=== PATIENT | female | born 1955 | race Caucasian/White ===

== ENCOUNTER 2020-03-30 08:33 | Emergency (ER) | payer MEDICARE, MEDICAID, SELFPAY ==
[2020-03-30] VITALS (7 sets, daily range): BP systolic 115–155; BP diastolic 47–78; PULSE 69–115; RESP 17–22; TEMP 36.6–37.4; O2SAT 97–98; BMI 32.5
[2020-03-30 09:06] LABS: Glucose, Whole Blood 74 mg/dL (60-115)
[2020-03-30 09:38] LABS: MANUAL DIFF FLAG NO
[2020-03-30 09:47] LABS: Basophils Absolute Auto 0.1 X10*3/uL (0.0-0.2); Basophils Percent Auto 1.3 % (0-2); Eosinophils Absolute Auto 0.1 X10*3/uL (0.0-0.4); Eosinophils Percent Auto 1.5 % (0-4); Hematocrit 39.5 % (37-47); Hemoglobin 12.7 g/dl (12.0-16.0); Imm Gran Abs Auto 0.07 X10*3/uL (0.00-0.03); Imm Gran Pct Auto 0.9 % (0.0-0.4); Lymphocytes Absolute Auto 1.5 X10*3/uL (1.2-4.9); Lymphocytes Percent Auto 19.1 % (20-40); Mean Corpuscular HGB Conc 32.2 g/dl (31.0-35.0); Mean Corpuscular Volume 93.2 fL (80-98); Mean Platelet Volume 10.9 fL (9.4-12.3); Monocytes Absolute Auto 0.5 X10*3/uL (0.1-1.2); Monocytes Percent Auto 6.1 % (2-11); Neutrophils Absolute Auto 5.6 X10*3/uL (2.0-8.3); Neutrophils Percent Auto 71.1 % (45-73); Platelet Count 178 X10*3/uL (160-400); Red Blood Count 4.24 X10*6/uL (4.20-5.50); Red Cell Distribution Width 12.7 % (11.0-16.0); White Blood Count 7.8 X10*3/uL (4.8-10.8)
[2020-03-30 10:22] LABS: Glucose Urine UA NEG (NEG); Leukocyte Esterase Urine NEG (NEG); Nitrite Urine NEG (NEG); Specific Gravity - Urine <= 1.005 (1.005-1.025); Urine Blood TRACE (NEG); Urine Ketones NEG (NEG); Urine Protein NEG (NEG-TRACE)
[2020-03-30 10:27] LABS: Anion Gap 14 (12-20); Blood Urea Nitrogen 13 mg/dL (9-16); Calcium 8.2 mg/dL (8.4-10.2); Carbon Dioxide 20 mmol/L (22-29); Chloride 110 mmol/L (96-108); Creatinine Clr Calc Pharmacy 46.9; Estimated Glomerular Filt Rate 41; Glucose Random 71 mg/dL (60-115); Potassium 3.9 mmol/l (3.3-5.1); Sodium 140 mmol/L (135-145)
[2020-03-30 10:29] LABS: Appearance Urine CLEAR; Color Urine YELLOW
[2020-03-30 10:33] LABS: Troponin-I High Sensitivity < 3.5 ng/L (<3.5-17.0)
--- NOTE | 2020-03-30 10:36 | CT_ITS ---
EXAMINATION: CT BRAIN AND CT CERVICAL SPINE WITHOUT CONTRAST. CLINICAL INFORMATION: Fall, LOC. COMPARISON: None TECHNIQUE: 5 mm thin axial and 2 mm thin sagittal and coronal images of brain were obtained without contrast. Subsequently axial 3 mm thin and very reformatted 2 mm thin sagittal and coronal images of cervical spine were obtained without contrast. DLP [id number] FINDINGS: BRAIN: There is no acute intra-axial, extra-axial bleed, masses or midline shift. There is no acute infarction in evolution. There is no edema or mass effect. The lateral ventricles are symmetrical in size and configuration without enlargement. The harris to white matter differentiation it is maintained. Bone windows reveal no calvarial abnormality. Bilateral paranasal sinuses and mastoid air cells are well aerated. There is left frontal scalp hematoma without calvarial fracture. CERVICAL SPINE: There is mild reversal cervical lordosis. The vertebral heights and alignment is normal. There is loss of C3-C4, C4-C5, C5-C6 and C6-C7 disc heights with the genu disc changes and ventral and posterior spondylosis. No lytic or sclerotic process seen. The neural foramina are widely patent. The craniovertebral junction and the C1-C2 alignment is normal. There is no visible acute fracture, dislocation or subluxation. The prevertebral and paravertebral soft tissues are normal. The thyroid lobes are symmetric and normal. The lung apices are clear. CT/CT cervical spine wo con IMPRESSION: No acute intracranial process seen. No acute fracture, dislocation or subluxation seen cervical spine. Degenerative disc changes seen virtually at all disc levels with ventral spondylosis. No acute fracture or dislocation seen.
--- NOTE | 2020-03-30 10:38 | ED.GENADULT ---
HPI - General Adult General Chief complaint: Fall Stated complaint: fall Time Seen by Provider: 03/30/20 10:03 Source: patient Mode of arrival: EMS History of Present Illness HPI narrative: patient comes to the emergency room after a fall. Patient states this morning around 6-630 a.m., she got up to go to the bathroom, next thing that she remembers it was approximately 08:00 and she woke up on the floor, called EMS. Patient states she has had multiple episodes of syncope, states she was admitted towards the end of February, had a workup and everything was negative. Patient denies any chest pain, no shortness of breath. This morning patient has multiple ecchymoses to the face, patient is complaining of a headache, denies being on blood thinners. At this time, patient complaining of headache, no neck pain Related Data Allergies Allergy/AdvReac Type Severity Reaction Status Date / Time gluten [GLUTEN] Allergy Unknown UNKNOWN Unverified 03/30/20 08:47 mushroom Allergy Unknown UNKNOWN Unverified 03/30/20 08:47 Review of Systems Review of Systems: Constitutional : No Weight loss, No Fever, No Chills, No Night Sweats, No Fatigue, No Malaise ENT/Mouth : No Hearing loss, No Ear Pain, No Nasal Congestion, No Sinus Pain, No Hoarseness, No sore throat, No Rhinorrhea, No Swallowing Difficulty Eyes: No Eye Pain, No Swelling, No Redness, No Foreign Body, No Discharge, No Vision Changes Cardiovascular : No Chest Pain, No SOB, No Dyspnea on Exertion, No Orthopnea, No Edema, No Palpitations Respiratory : No Cough, No Sputum, No Wheezing, No Smoke Exposure, No Dyspnea Gastrointestinal : No Nausea, No Vomiting, No Diarrhea, No Constipation, No abdominal Pain, No Hematochezia, No Melena Genitourinary : no irregular bleeding, No Dysuria, No Urinary Frequency, No Hematuria, No Urinary Incontinence, No Urgency, No Flank Pain, No Urinary Flow Changes, No Hesitancy Musculoskeletal : No joint pain, No Myalgias, No Joint Swelling Skin : multiple ecchymoses in face Neuro : No Weakness, No Numbness, No Paresthesias, complaining of headache, syncopal episode Psych : No Anxiety/Panic, No Depression, No SI/HI/AH/VH, No Social Issues, Heme/Lymph: No Bruising, No Bleeding,No Lymphadenopathy Endocrine : No Polyuria, No Polydipsia, No Temperature Intolerances [facility] Past Medical History Medical History delivery delivered Femur fracture, left Femur fracture, right Heart murmur Hyperlipidemia Hypertension Kidney disease Migraine Overactive adult syndrome Overactive bladder Restless Right knee injury Right shoulder injury Thyroid disease Social History Social History Alcohol intake: current Alcohol intake frequency: a few times a month Smoking Status: Never smoker Use of substances other than those prescribed or required for medical reasons: No Advance Directives: No Advance Directives Information Provided: Yes Physical Exam Vital Signs: Vital Signs: Vital Signs Temp Pulse Resp BP Pulse Ox 03/30/20 13:46 70 17 149/62 H 98 03/30/20 12:06 97.8 F 70 18 115/49 L 97 03/30/20 12:03 115 H 115/49 L 03/30/20 12:02 72 125/50 L 03/30/20 12:01 72 134/47 L 03/30/20 10:53 69 19 155/64 H 97 03/30/20 08:48 99.4 F 70 22 H 125/57 L 97 Body Mass Index 32.5 Appearance: Alert. Oriented X3. No acute distress. Eyes: Pupils equal, round and reactive to light. ENT: Pharynx normal. Neck: Normal inspection. Neck supple. No lymph nodes noted. No crepitus. No C-spine tenderness CVS: Normal heart rate and rhythm. Pulses normal. Normal S1 and S2 Respiratory: No respiratory distress. Breath sounds normal. No Wheezing. No rales Abdomen: Soft and nontender. No rigidity. No distention. good BS x4 Skin: Skin warm and dry. multiple ecchymosis to the face Extremities: No lower extremity edema. No lower extremity edema. No Lacerations. No Rash Neuro: Oriented X 3. No motor deficit. No sensory deficit. Moving all extermities. No slurred speech. Medical Decision Making MDM Narrative Medical decision making narrative: on patient's previous admission: Patient was admitted for syncope. She underwent workup which included cardiac monitoring for 48 hours which did not show any arrhythmias. She underwent a 2D echo which did not show any cause for her syncopal episode. Patient was hydrated and subsequently underwent a physical therapy evaluation who recommended home PT. Patient did not want home PT and opted for outpatient PT patient is feeling well now, no headache, I discussed with the patient that she will need a Holter monitor, she has had multiple episodes of syncope in the past with no clear reason despite thorough medical workups. Patient states she has an appointment with her PCP early next week, she will discuss a Holter monitor and a cardiology referral with her PCP Lab Data Result diagrams: 03/30/20 11:35 03/30/20 09:19 Labs: Lab Results 03/30/20 03/30/20 03/30/20 Range/Units 09:03 09:19 09:19 WBC (4.8-10.8) X10*3/uL RBC (4.20-5.50) X10*6/uL Hgb (12.0-16.0) g/dl Hct (37-47) % MCV (80-98) fL MCH (27.0-33.0) pg MCHC (31.0-35.0) g/dl RDW (11.0-16.0) % Plt Count (160-400) X10*3/uL MPV (9.4-12.3) fL Immature Gran % (Auto) (0.0-0.4) % Neut % (Auto) (45-73) % Lymph % (Auto) (20-40) % [place] % (Auto) (2-11) % Eos % (Auto) (0-4) % Baso % (Auto) (0-2) % Lymph # (Auto) (1.2-4.9) X10*3/uL [place] # (Auto) (0.1-1.2) X10*3/uL Eos # (Auto) (0.0-0.4) X10*3/uL Baso # (Auto) (0.0-0.2) X10*3/uL Abs Immat Gran (auto) (0.00-0.03) X10*3/uL Absolute Neuts (auto) (2.0-8.3) X10*3/uL Absolute Nucleated RBC (0.0-0.012) X10*3/uL Nucleated RBC % (auto) (0.0-0.2) /100WBC Hold Blue Top SEE NOTE Sodium 140 (135-145) mmol/L Potassium 3.9 (3.3-5.1) mmol/l Chloride 110 H (96-108) mmol/L Carbon Dioxide 20 L (22-29) mmol/L Anion Gap 14 (12-20) BUN 13 (9-16) mg/dL Creatinine 1.32 (0.5-1.4) mg/dL Estim Creat Clear Calc 46.9 Estimated GFR 41 POC Glucose 74 (60-115) mg/dL Random Glucose 71 (60-115) mg/dL Calcium 8.2 L (8.4-10.2) mg/dL Total Creatine Kinase (26-140) U/L Troponin I High Sens (<3.5-17.0) ng/L Urine Color Urine Appearance Urine pH (5.0-8.0) Ur Specific Hewitt (1.005-1.025) Urine Protein (NEG-TRACE) MG/DL Urine Glucose (UA) (NEG) MG/DL Urine Ketones (NEG) MG/DL Urine Blood (NEG) Urine Nitrite (NEG) Ur Leukocyte Esterase (NEG) Urine RBC (0) /HPF Urine WBC (0-4) /HPF Ur Squamous Epith Cells /LPF Urine Bacteria /LPF 03/30/20 03/30/20 03/30/20 Range/Units 09:19 09:19 09:25 WBC 7.8 (4.8-10.8) X10*3/uL RBC 4.24 (4.20-5.50) X10*6/uL Hgb 12.7 (12.0-16.0) g/dl Hct 39.5 (37-47) % MCV 93.2 (80-98) fL MCH 30.0 (27.0-33.0) pg MCHC 32.2 (31.0-35.0) g/dl RDW 12.7 (11.0-16.0) % Plt Count 178 (160-400) X10*3/uL MPV 10.9 (9.4-12.3) fL Immature Gran % (Auto) 0.9 H (0.0-0.4) % Neut % (Auto) 71.1 (45-73) % Lymph % (Auto) 19.1 L (20-40) % [place] % (Auto) 6.1 (2-11) % Eos % (Auto) 1.5 (0-4) % Baso % (Auto) 1.3 (0-2) % Lymph # (Auto) 1.5 (1.2-4.9) X10*3/uL [place] # (Auto) 0.5 (0.1-1.2) X10*3/uL Eos # (Auto) 0.1 (0.0-0.4) X10*3/uL Baso # (Auto) 0.1 (0.0-0.2) X10*3/uL Abs Immat Gran (auto) 0.07 H (0.00-0.03) X10*3/uL Absolute Neuts (auto) 5.6 (2.0-8.3) X10*3/uL Absolute Nucleated RBC 0.000 (0.0-0.012) X10*3/uL Nucleated RBC % (auto) 0.0 (0.0-0.2) /100WBC Hold Blue Top Sodium (135-145) mmol/L Potassium (3.3-5.1) mmol/l Chloride (96-108) mmol/L Carbon Dioxide (22-29) mmol/L Anion Gap (12-20) BUN (9-16) mg/dL Creatinine (0.5-1.4) mg/dL Estim Creat Clear Calc Estimated GFR POC Glucose (60-115) mg/dL Random Glucose (60-115) mg/dL Calcium (8.4-10.2) mg/dL Total Creatine Kinase 52 (26-140) U/L Troponin I High Sens < 3.5 (<3.5-17.0) ng/L Urine Color Urine Appearance Urine pH (5.0-8.0) Ur Specific Hewitt (1.005-1.025) Urine Protein (NEG-TRACE) MG/DL Urine Glucose (UA) (NEG) MG/DL Urine Ketones (NEG) MG/DL Urine Blood (NEG) Urine Nitrite (NEG) Ur Leukocyte Esterase (NEG) Urine RBC (0) /HPF Urine WBC (0-4) /HPF Ur Squamous Epith Cells /LPF Urine Bacteria /LPF 03/30/20 03/30/20 03/30/20 Range/Units 09:25 11:35 11:35 WBC 7.9 (4.8-10.8) X10*3/uL RBC 4.29 (4.20-5.50) X10*6/uL Hgb 12.8 (12.0-16.0) g/dl Hct 40.0 (37-47) % MCV 93.2 (80-98) fL MCH 29.8 (27.0-33.0) pg MCHC 32.0 (31.0-35.0) g/dl RDW 12.8 (11.0-16.0) % Plt Count 171 (160-400) X10*3/uL MPV 11.0 (9.4-12.3) fL Immature Gran % (Auto) 0.5 H (0.0-0.4) % Neut % (Auto) 67.5 (45-73) % Lymph % (Auto) 21.9 (20-40) % [place] % (Auto) 6.5 (2-11) % Eos % (Auto) 2.2 (0-4) % Baso % (Auto) 1.4 (0-2) % Lymph # (Auto) 1.7 (1.2-4.9) X10*3/uL [place] # (Auto) 0.5 (0.1-1.2) X10*3/uL Eos # (Auto) 0.2 (0.0-0.4) X10*3/uL Baso # (Auto) 0.1 (0.0-0.2) X10*3/uL Abs Immat Gran (auto) 0.04 H (0.00-0.03) X10*3/uL Absolute Neuts (auto) 5.3 (2.0-8.3) X10*3/uL Absolute Nucleated RBC 0.000 (0.0-0.012) X10*3/uL Nucleated RBC % (auto) 0.0 (0.0-0.2) /100WBC Hold Blue Top Sodium (135-145) mmol/L Potassium (3.3-5.1) mmol/l Chloride (96-108) mmol/L Carbon Dioxide (22-29) mmol/L Anion Gap (12-20) BUN (9-16) mg/dL Creatinine (0.5-1.4) mg/dL Estim Creat Clear Calc Estimated GFR POC Glucose (60-115) mg/dL Random Glucose (60-115) mg/dL Calcium (8.4-10.2) mg/dL Total Creatine Kinase 59 (26-140) U/L Troponin I High Sens (<3.5-17.0) ng/L Urine Color YELLOW Urine Appearance CLEAR Urine pH 6.0 (5.0-8.0) Ur Specific Hewitt <= 1.005 (1.005-1.025) Urine Protein NEG (NEG-TRACE) MG/DL Urine Glucose (UA) NEG (NEG) MG/DL Urine Ketones NEG (NEG) MG/DL Urine Blood TRACE (NEG) Urine Nitrite NEG (NEG) Ur Leukocyte Esterase NEG (NEG) Urine RBC 0-2 (0) /HPF Urine WBC 0 (0-4) /HPF Ur Squamous Epith Cells 1+ /LPF Urine Bacteria NONE /LPF ECG Data Attestation: I personally reviewed and interpreted this ECG as follows: ( sinus rhythm, heart rate 72, incomplete right bundle-branch block, no ST segment depressions or elevations, no T-wave inversions) Discharge Plan Discharge Clinical Impression: Syncope Qualifiers: Syncope type: unspecified Qualified Code(s): R55 - Syncope and collapse Contusion Qualifiers: Encounter type: initial encounter Contusion area: head Contusion of head detail: unspecified part of head Qualified Code(s): S00.93XA - Contusion of unspecified part of head, initial encounter Patient Disposition: Home, Self-Care Instructions: Syncope (ED) Additional Instructions: please follow-up with her primary care physician on Wednesday, you may need a referral to Cardiology for Holter monitor Please follow-up with your primary care physician tomorrow. If you have any worsening or new symptoms, please return to the emergency room or call 911
[2020-03-30 11:01] LABS: RBC Urine 0-2 /HPF (0); Squamous Epithelial Cell Urine 1+ /LPF; WBC Urine 0 /HPF (0-4)
[2020-03-30 11:39] LABS: MANUAL DIFF FLAG NO
[2020-03-30 11:43] LABS: Basophils Absolute Auto 0.1 X10*3/uL (0.0-0.2); Basophils Percent Auto 1.4 % (0-2); Eosinophils Absolute Auto 0.2 X10*3/uL (0.0-0.4); Eosinophils Percent Auto 2.2 % (0-4); Hemoglobin 12.8 g/dl (12.0-16.0); Imm Gran Abs Auto 0.04 X10*3/uL (0.00-0.03); Imm Gran Pct Auto 0.5 % (0.0-0.4); Lymphocytes Absolute Auto 1.7 X10*3/uL (1.2-4.9); Lymphocytes Percent Auto 21.9 % (20-40); Mean Corpuscular Hemoglobin 29.8 pg (27.0-33.0); Mean Corpuscular Volume 93.2 fL (80-98); Monocytes Absolute Auto 0.5 X10*3/uL (0.1-1.2); Monocytes Percent Auto 6.5 % (2-11); Neutrophils Absolute Auto 5.3 X10*3/uL (2.0-8.3); Neutrophils Percent Auto 67.5 % (45-73); Platelet Count 171 X10*3/uL (160-400); Red Blood Count 4.29 X10*6/uL (4.20-5.50); Red Cell Distribution Width 12.8 % (11.0-16.0); White Blood Count 7.9 X10*3/uL (4.8-10.8)
--- NOTE | 2020-03-30 11:53 | PC.NURSE ---
PT HELPED TO BEDPAN MULTIPLE TIMES. C/O HEADACHE AT THIS TIME, ONLY PAIN REPORTED. DENIES ANY DIZZINESS, NAUSEA. AWAITING BLOOD WORK RESULTS.
[2020-03-30] MEDS: Acetaminophen 325 MG TABLET 650 MG PO (12:09)
--- NOTE | 2020-03-30 12:10 | PC.NURSE ---
pt c/o headache 11/14, apap entered, okay'd by .
--- NOTE | 2020-03-30 12:12 | PC.NURSE ---
pt denies any diziness, nausea with ortho bps.
--- NOTE | 2020-03-30 13:47 | PC.NURSE ---
pt reports no pain. plan to discharge
== END 2020-03-30 13:55 | disposition home or self-care (01) ==
PROVIDERS: Emergency Provider Emergency Medicine; PCP Internal Medicine
DX: S00.93XA Contusion of unspecified part of head, initial encounter (principal); R55 Syncope and collapse; W01.0XXA Fall on same level from slipping, tripping and stumbling without subsequent striking against object, initial encounter; Y93.9 Activity, unspecified; Y92.002 Bathroom of unspecified non-institutional (private) residence as the place of occurrence of the external cause; Z79.899 Other long term (current) drug therapy
CPT/HCPCS: 36415; 70450; 72125; 80048; 81001; 81003; 82550; 82947; 84484; 85025; 99284

== ENCOUNTER 2020-05-27 11:24 | Outpatient (REF) | payer MEDICARE, MEDICAID, SELFPAY ==
--- NOTE | 2020-05-27 11:33 | MM_ITS ---
EXAMINATION: MM DIAGNOSTIC DIGITAL BREAST TOMOSYNTHESIS, BILATERAL CLINICAL INFORMATION: Short interval 6 month follow up mammography for probable benign calcifications left posterior 3:00 and right anterior 11:00-12:00 position. The lifetime risk of breast cancer based on the Tyrer-Cuzick Model is 5%. COMPARISON: Mammography: 11/24/2019, 11/21/2019 (BI-RADS 0), 11/15/2018, 10/21/2017 TECHNIQUE: Digital breast tomosynthesis is performed in both the craniocaudal and mediolateral oblique views along with computer-aided detection (CAD). Synthesized 2D images are generated from the tomosynthesis. FINDINGS: There are scattered areas of fibroglandular density (ACR BI-RADS breast composition Category b). There are no significant masses, abnormal calcifications, or other abnormalities. Parenchymal pattern is similar to prior studies. The calcifications for follow up are similar to prior diagnostic exam. They will be reassessed again in 6 months at time of annual bilateral mammography. Results are provided to the patient at time of visit by the technologist. MM/MM tomosynthesis diagnostic BI IMPRESSION: Calcifications for follow up are without significant change from initial diagnostic exam 6 months ago. ASSESSMENT: BI-RADS 3: Probably Benign RECOMMENDATION: Diagnostic mammography at time of bilateral annual mammography, due in 6 months. This patient's information was entered into a reminder system with a target due date for their next mammogram.
== END 2020-05-27 11:25 | disposition home or self-care (01) ==
LOC: HO.MAMMO 11:24
PROVIDERS: PCP Internal Medicine; Visit Provider Internal Medicine
DX: R92.8 Other abnormal and inconclusive findings on diagnostic imaging of breast (principal)
CPT/HCPCS: 77062; 77066

== ENCOUNTER 2020-09-10 10:23 | Emergency (ER) | payer MEDICARE, MEDICAID, SELFPAY ==
--- NOTE | ~2020-09-10 | CT_ITS ---
EXAMINATION: CT HEAD WITHOUT CONTRAST CLINICAL INFORMATION: Fall COMPARISON: Head CT March 30, 2020 TECHNIQUE: Contiguous axial imaging was performed from the skull base to vertex without intravenous administration of contrast. This CT examination was performed using dose optimization techniques as appropriate, variously including the following: *Automated exposure control *Adjustment of mA and/or kV according to patient size (this includes techniques or standardized protocols for targeted exams where dose is matched to indication/reason for exam; i.e. extremities or head) *Use of iterative reconstruction technique DLP: 598 mGy-cm FINDINGS: There is no evidence of acute intracranial hemorrhage or territorial infarction. No abnormal mass effect or midline shift is seen. Hammond to white matter differentiation is well preserved. No extra-axial fluid collections are identified. The ventricles are normal in size. There is no abnormal attenuation within the brain parenchyma. The osseous structures and soft tissues are normal. The mastoid air cells and visualized portions of the paranasal sinuses are well aerated. CT/CT head/brain wo con IMPRESSION: No acute intracranial pathology.
[2020-09-10 10:34] VITALS: BP 103/72; BP 141/50; PULSE 67; PULSE 77; RESP 14; TEMP 37; O2SAT 97; O2SAT 98; BMI 34.9
--- NOTE | 2020-09-10 10:36 | ED_ITS ---
HPI - Fall General Chief Complaint: Fall Stated Complaint: RIGHT KNEE PAIN S/P FALL Time Seen by Provider: 09/10/20 10:32 Source: patient and EMS Mode of arrival: EMS Limitations: no limitations History of Present Illness HPI Narrative: 65 yo female no AC therapy came in after her R knee gave out and she fell - chronic issue hit head no LOC, states she wants a head CT and her radiology assistant sent her in for it MD complaint: fall Onset (ago): minute(s) Fall from: standing Fall witnessed: no Place fall occurred: home Loss of consciousness: none Prolonged down time: no Symptoms prior to fall: none Context: history of frequent falls (R knee gives out) Location of injury: head and face Related Data Allergies Allergy/AdvReac Type Severity Reaction Status Date / Time gluten [GLUTEN] Allergy Unknown UNKNOWN Verified 09/10/20 10:43 mushroom Allergy Unknown UNKNOWN Verified 09/10/20 10:43 Review of Systems Review of Systems: Constitutional : No Fever, No Chills ENT/Mouth : No Ear Pain, No Hoarseness, No sore throat Eyes: No Eye Pain, No Swelling, No Redness, No Foreign Body Cardiovascular : No Chest Pain, No SOB Respiratory : No Cough, No Dyspnea Gastrointestinal : No Nausea, No Vomiting, No Diarrhea, No abdominal Pain Genitourinary : No Dysuria, No Hematuria Musculoskeletal : no joint pain, No Myalgias, No Joint Swelling Skin : No Skin lacerations, pos abrasions Neuro : No Weakness, No Numbness, No Loss of Consciousness, No Dizziness, No Headache Psych : No Anxiety/Panic, No Depression Heme/Lymph: no easy bruising, no Lymphadenopathy Endocrine : No Polyuria, No Polydipsia All other systems reviewed and are negative [facility] Past Medical History Attestation statement: The following information was validated with the patient. Medical History delivery delivered Femur fracture, left Femur fracture, right Heart murmur Hyperlipidemia Hypertension Kidney disease Migraine Overactive adult syndrome Overactive bladder Restless Right knee injury Right shoulder injury Thyroid disease Social History Social History Alcohol intake: never Smoking Status: Never smoker Use of substances other than those prescribed or required for medical reasons: No Advance Directives: Yes Advance Directives Information Provided: Yes Advance Directives on File: No Physical Exam Vital Signs: Vital Signs: Last Vital Signs Temp 98.6 F 09/10/20 10:47 Pulse 66 09/10/20 10:47 Resp 14 09/10/20 10:47 BP 141/50 H 09/10/20 10:47 Pulse Ox 100 09/10/20 10:47 Body Mass Index 34.9 Appearance: Alert. Oriented X3. No acute distress. Eyes: Pupils equal, round and reactive to light. ENT: Pharynx normal. superficial abrasions to L forehead, chin, nose Neck: Normal inspection. Neck supple. no midline ttp CVS: Normal heart rate and rhythm. Pulses normal. Respiratory: No respiratory distress. Breath sounds normal. Abdomen: Soft and nontender. Skin: Skin warm and dry. Normal skin color. Normal skin turgor. Extremities: No lower extremity edema. No calf ttp full ROM no pain Neuro: Oriented X 3. No motor deficit. No sensory deficit. Course Course Course Narrative: GCS 15, negative CT scan stable for DC MDM - Fall MDM Narrative Medical decision making narrative: 65 yo female no AC therapy, GCS 15, no LOC, discussed unlikely to have ICH - she states despite risks of radiation she wants head CT after talking to her radiology assistant, the patient is adamant about imaging - she has nontender cervical spine and denies other injury at this time given her repeated request will image, if negative can be DC home with outpatient follow up. Discharge Plan Discharge Clinical Impression: Abrasion of face, Head injury Patient Disposition: Home, Self-Care Instructions: Abrasion (ED), Head Injury (ED) Additional Instructions: return to ED for any worsening symptoms or concerns apply bacitracin or neosporin to abrasions keep clean Referrals: Carlos Castañeda PA [Primary Care Provider] - 2 days (as needed)
[2020-09-10 10:47] VITALS: BP 141/50; PULSE 66; RESP 14; TEMP 37; O2SAT 100
--- NOTE | 2020-09-10 10:58 | PC.NURSE ---
pt in ct scan at this time
== END 2020-09-10 11:50 | disposition home or self-care (01) ==
PROVIDERS: Emergency Provider Emergency Medicine; PCP Physician Assistant Medical
DX: S09.90XA Unspecified injury of head, initial encounter (principal); S00.81XA Abrasion of other part of head, initial encounter; S00.31XA Abrasion of nose, initial encounter; W01.0XXA Fall on same level from slipping, tripping and stumbling without subsequent striking against object, initial encounter; I10 Essential (primary) hypertension; E78.5 Hyperlipidemia, unspecified; Y93.9 Activity, unspecified; Y92.039 Unspecified place in apartment as the place of occurrence of the external cause; Y99.9 Unspecified external cause status
CPT/HCPCS: 70450; 99284

== ENCOUNTER 2020-10-11 10:25 | Outpatient (REF) | payer MEDICARE, MEDICAID, SELFPAY ==
[2020-10-11 11:09] LABS: MANUAL DIFF FLAG NO
[2020-10-11 11:52] LABS: Basophils Absolute Auto 0.1 X10*3/uL (0.0-0.2); Basophils Percent Auto 1.1 % (0-2); Eosinophils Absolute Auto 0.3 X10*3/uL (0.0-0.4); Eosinophils Percent Auto 3.9 % (0-4); Hematocrit 41.9 % (37-47); Hemoglobin 13.1 g/dl (12.0-16.0); Imm Gran Abs Auto 0.02 X10*3/uL (0.00-0.03); Imm Gran Pct Auto 0.3 % (0.0-0.4); Lymphocytes Absolute Auto 1.9 X10*3/uL (1.2-4.9); Lymphocytes Percent Auto 28.8 % (20-40); Mean Corpuscular HGB Conc 31.3 g/dl (31.0-35.0); Mean Corpuscular Hemoglobin 30.1 pg (27.0-33.0); Mean Corpuscular Volume 96.3 fL (80-98); Mean Platelet Volume 11.5 fL (9.4-12.3); Monocytes Absolute Auto 0.5 X10*3/uL (0.1-1.2); Monocytes Percent Auto 6.8 % (2-11); Neutrophils Absolute Auto 3.9 X10*3/uL (2.0-8.3); Neutrophils Percent Auto 59.1 % (45-73); Platelet Count 180 X10*3/uL (160-400); Red Blood Count 4.35 X10*6/uL (4.20-5.50); Red Cell Distribution Width 13.1 % (11.0-16.0); White Blood Count 6.6 X10*3/uL (4.8-10.8)
[2020-10-11 11:57] LABS: Anion Gap 15 (12-20); Blood Urea Nitrogen 20 mg/dL (9-16); Calcium 8.9 mg/dL (8.4-10.2); Carbon Dioxide 21 mmol/L (22-29); Chloride 110 mmol/L (96-108); Estimated Glomerular Filt Rate 42; Potassium 4.1 mmol/L (3.3-5.1); Sodium 142 mmol/L (135-145)
== END 2020-10-11 10:26 | disposition home or self-care (01) ==
LOC: HO.LAB 10:25
PROVIDERS: PCP Physician Assistant Medical; Visit Provider Internal Medicine Hypertension Specialist
DX: N18.30 Chronic kidney disease, stage 3 unspecified (principal); D63.8 Anemia in other chronic diseases classified elsewhere
CPT/HCPCS: 36415; 80051; 82310; 82565; 84520; 85025

== ENCOUNTER 2020-11-25 09:19 | Outpatient (REF) | payer MEDICARE, MEDICAID, SELFPAY ==
--- NOTE | ~2020-11-25 | MM_ITS ---
EXAMINATION: MM DIAGNOSTIC DIGITAL BREAST TOMOSYNTHESIS, BILATERAL CLINICAL INFORMATION: Due for yearly. Also follow-up probable benign calcifications left 3:00 and right 11:00 position. Prior history benign left stereotactic biopsy for calcifications 2017 (fibroadenomatous changes, intraductal papillary hyperplasia, dystrophic calcifications). The lifetime risk of breast cancer based on the Tyrer-Cuzick Model is 5%. COMPARISON: Mammography: 05/27/2020, 11/24/2019, 11/21/2019 (BI-RADS 0), 11/15/2018, 10/21/2017 TECHNIQUE: Digital breast tomosynthesis is performed in both the craniocaudal and mediolateral oblique views along with computer-aided detection (CAD). Synthesized 2D images are generated from the tomosynthesis. Additional magnification views are obtained: Left CC, left ML x2, right CC, right ML x2. FINDINGS: There are scattered areas of fibroglandular density (ACR BI-RADS breast composition Category b). Parenchymal pattern is similar to prior studies. There is no developing density or interval mass or architectural abnormality. There are 2 biopsy clip markers left breast posterior central and posterior central 9:00 position. Calcifications for follow-up left breast posterior 3:00 position are stable to slightly coarser. There may be a few additional coarse calcifications in this area. Calcifications will be reassessed again in 6 months to include magnification views. Calcifications for follow-up anterior 11:00 right breast are relatively coarse and without significant change from prior diagnostic exam. They will be reassessed again in 6 months to include magnification views. Results are provided to the patient at time of visit by the technologist. MM/MM tomosynthesis diagnostic BI IMPRESSION: No significant changes from prior exam. Probable benign calcifications posterior left 3:00 and anterior right 11:00. ASSESSMENT: BI-RADS 3: Probably Benign RECOMMENDATION: Diagnostic bilateral mammography in 6 months to include bilateral magnification views. This patient's information was entered into a reminder system with a target due date for their next mammogram.
== END 2020-11-25 09:20 | disposition home or self-care (01) ==
LOC: HO.MAMMO 09:19
PROVIDERS: Visit Provider Internal Medicine
DX: R92.1 Mammographic calcification found on diagnostic imaging of breast (principal)
CPT/HCPCS: 77062; 77066

== ENCOUNTER 2021-03-14 10:15 | Outpatient (REF) | payer MEDICARE, MEDICAID, SELFPAY ==
[2021-03-14 10:37] LABS: MANUAL DIFF FLAG NO
[2021-03-14 10:48] LABS: Basophils Absolute Auto 0.1 X10*3/uL (0.0-0.2); Basophils Percent Auto 0.9 % (0-2); Eosinophils Absolute Auto 0.3 X10*3/uL (0.0-0.4); Eosinophils Percent Auto 3.8 % (0-4); Imm Gran Abs Auto 0.03 X10*3/uL (0.00-0.03); Imm Gran Pct Auto 0.4 % (0.0-0.4); Lymphocytes Absolute Auto 1.9 X10*3/uL (1.2-4.9); Lymphocytes Percent Auto 28.5 % (20-40); Mean Corpuscular HGB Conc 31.7 g/dl (31.0-35.0); Mean Corpuscular Hemoglobin 30.2 pg (27.0-33.0); Mean Corpuscular Volume 95.3 fL (80-98); Mean Platelet Volume 11.5 fL (9.4-12.3); Monocytes Absolute Auto 0.6 X10*3/uL (0.1-1.2); Monocytes Percent Auto 8.5 % (2-11); Neutrophils Absolute Auto 3.9 X10*3/uL (2.0-8.3); Neutrophils Percent Auto 57.9 % (45-73); Platelet Count 194 X10*3/uL (160-400); Red Cell Distribution Width 12.8 % (11.0-16.0); White Blood Count 6.8 X10*3/uL (4.8-10.8)
[2021-03-14 11:15] LABS: Anion Gap 11 (12-20); Blood Urea Nitrogen 23 mg/dL (9-16); Calcium 9.2 mg/dL (8.4-10.2); Carbon Dioxide 26 mmol/L (22-29); Chloride 109 mmol/L (96-108); Estimated Glomerular Filt Rate 42; Potassium 4.3 mmol/L (3.3-5.1); Sodium 142 mmol/L (135-145)
[2021-03-18 15:56] LABS: Calcium (PTHI) 9.1 mg/dL (8.6-10.4); PTHI 41 pg/mL (14-64)
== END 2021-03-14 10:16 | disposition home or self-care (01) ==
LOC: HO.LAB 10:15
PROVIDERS: PCP Physician Assistant Medical; Visit Provider Internal Medicine Hypertension Specialist
DX: N18.31 Chronic kidney disease, stage 3a (principal)
CPT/HCPCS: 36415; 80051; 82310; 82565; 83970; 84520; 85025

== ENCOUNTER 2021-05-27 11:51 | Outpatient (REF) | payer MEDICARE, MEDICAID, SELFPAY ==
--- NOTE | ~2021-05-27 | MM_ITS ---
EXAMINATION: MM DIAGNOSTIC DIGITAL BREAST TOMOSYNTHESIS, BILATERAL CLINICAL INFORMATION: Probable benign bilateral calcifications. Follow-up. History left stereotactic biopsy 2017 (benign breast tissue with fibroadenomatous changes, intraductal papillary hyperplasia and dystrophic calcifications). The lifetime risk of breast cancer based on the Tyrer-Cuzick Model is 5%. COMPARISON: Mammography: 11/25/2020, 05/27/2020, 11/24/2019, 11/21/2019 (BI-RADS 0) TECHNIQUE: Digital breast tomosynthesis is performed in both the craniocaudal and mediolateral oblique views along with computer-aided detection (CAD). Synthesized 2D images are generated from the tomosynthesis. FINDINGS: There are scattered areas of fibroglandular density (ACR BI-RADS breast composition Category b). Breast parenchymal pattern is similar to prior exams. No developing density or architectural abnormality. There are 2 biopsy clip markers again noted left breast central posterior breast and posterior 11:00 position, respectively. Calcifications for follow-up left breast mid 3:00 position and right anterior 11:00 position appear slightly coarser when compared with prior diagnostic exams. There may be a few additional calcifications in each site. Findings may suggest fibroadenomatous changes similar to prior biopsy. Calcifications will be reassessed again in 12 months to include magnification views. Results are provided to the patient at time of visit by the technologist. MM/MM tomosynthesis diagnostic BI IMPRESSION: No significant changes in the bilateral probable benign grouped calcifications mid left 3:00 and right anterior 11:00 positions. ASSESSMENT: BI-RADS 3: Probably Benign RECOMMENDATION: Diagnostic mammography at time of next annual exam, due in 12 months. This patient's information was entered into a reminder system with a target due date for their next mammogram.
== END 2021-05-27 11:52 | disposition home or self-care (01) ==
LOC: HO.MAMMO 11:51
PROVIDERS: PCP Physician Assistant Medical; Visit Provider Internal Medicine
DX: R92.8 Other abnormal and inconclusive findings on diagnostic imaging of breast (principal)
CPT/HCPCS: 77062; 77066

== ENCOUNTER → 2021-08-22 12:46 | Outpatient (BNVA) | payer MEDICARE, MEDICAID, SELFPAY | PROVIDERS: PCP Physician Assistant Medical | DX: N32.81 Overactive bladder (principal) | CPT/HCPCS: 51798; 99202 ==

== ENCOUNTER 2022-04-16 10:54 | Outpatient (REF) | payer MEDICARE, MEDICAID, SELFPAY ==
[2022-04-16 12:34] LABS: Alanine Aminotransferase 20 U/L (0-31); Albumin Level 3.9 g/dL (3.5-5.0); Alkaline Phosphatase 132 U/L (39-117); Anion Gap 16 (12-20); Aspartate Amino Transferase 18 U/L (5-31); Bilirubin Total 0.6 mg/dL (0.0-1.0); Blood Urea Nitrogen 17 mg/dL (9-16); Calcium 8.9 mg/dL (8.4-10.2); Carbon Dioxide 23 mmol/L (22-29); Chloride 108 mmol/L (96-108); Estimated Glomerular Filt Rate 50; Glucose Random 117 mg/dL (60-115); Potassium 3.6 mmol/L (3.3-5.1); Sodium 143 mmol/L (135-145); Total Protein 6.4 g/dL (6.5-8.0)
[2022-04-16 12:49] LABS: Appearance Urine Clear; Color Urine Yellow; Glucose Urine UA Negative (Negative); Leukocyte Esterase Urine Small (1+) (Negative); Nitrite Urine Negative (Negative); PH 5.5 (5.0-9.0); UMIC TRIGGER UACC YES; Urine Blood Negative (Negative); Urine Ketones Negative (Negative); Urine Protein Negative (Neg-Trace)
[2022-04-16 12:53] LABS: Bacteria Urine None Seen (None Seen); Hyaline Casts Urine 0-2 /LPF (0-2); RBC Urine 0-2 /HPF (0-2); UACC Culture Trigger YES
[2022-04-16 13:37] LABS: Creatinine Urine 172.64 mg/dL; Protein/Creatinine Ratio, Ur 0.08 (<0.2); Total Protein Urine Random 14 mg/dL (<12)
== END 2022-04-16 10:55 | disposition home or self-care (01) ==
LOC: HO.LAB 10:54
PROVIDERS: Visit Provider Internal Medicine Hypertension Specialist
DX: I12.9 Hypertensive chronic kidney disease with stage 1 through stage 4 chronic kidney disease, or unspecified chronic kidney disease (principal); N18.9 Chronic kidney disease, unspecified
CPT/HCPCS: 36415; 80053; 81001; 84156; 87086

== ENCOUNTER 2022-05-22 12:52 | Outpatient (REF) | payer MEDICARE, MEDICAID, SELFPAY ==
[2022-05-22 18:06] LABS: Influenza A PCR POSITIVE (Negative); Influenza B PCR NEGATIVE (Negative); Resp Syncy Virus RNA Qual PCR NEGATIVE (Negative); SARS COV2 PCR INHOUSE NEGATIVE (Negative)
== END 2022-05-22 12:53 | disposition home or self-care (01) ==
LOC: HO.LAB 12:52
PROVIDERS: Visit Provider Physician Assistant
DX: Z20.822 Contact with and (suspected) exposure to COVID-19 (principal); B34.9 Viral infection, unspecified
CPT/HCPCS: 0241U

== ENCOUNTER 2022-05-22 14:34 | Emergency (ER) | payer MEDICARE, MEDICAID, SELFPAY ==
--- NOTE | ~2022-05-22 | XR_ITS ---
EXAMINATION: XR CHEST CLINICAL INFORMATION: Cough COMPARISON: Chest x-ray 02/26/2020 TECHNIQUE: 2 views of the chest were obtained. FINDINGS: The lungs are clear. No airspace consolidation, pleural effusion, or pneumothorax. The cardiomediastinal silhouette is within normal limits. No acute osseous injury. Implantable loop recorder projects within the lower left anterior chest wall. Suture anchors in the right humeral head consistent with prior rotator cuff repair. Healed fracture deformities of the right sixth and seventh ribs. XR/XR chest 2V IMPRESSION: No acute pulmonary process.
--- NOTE | ~2022-05-22 | CT_ITS ---
EXAMINATION: CT HEAD WITHOUT CONTRAST CLINICAL INFORMATION: Headache COMPARISON: Head CT 09/10/2020 TECHNIQUE: Imaging was performed from the skull base to vertex without intravenous administration of contrast. This CT examination was performed using dose optimization techniques as appropriate, variously including the following: *Automated exposure control *Adjustment of mA and/or kV according to patient size (this includes techniques or standardized protocols for targeted exams where dose is matched to indication/reason for exam; i.e. extremities or head) *Use of iterative reconstruction technique Total exam dose length product: 885 mGy-cm FINDINGS: No intra or extra-axial fluid collection, hemorrhage, or mass. No ventriculomegaly. No midline shift or herniation. Basal cisterns are patent. Hammond-white matter differentiation is maintained. No territorial encephalomalacia. No significant volume loss. There is no abnormal attenuation within the brain parenchyma. No calvarial fracture or soft tissue abnormality. The mastoid air cells and visualized portions of the paranasal sinuses are well aerated. CT/CT head/brain wo IV con IMPRESSION: 1. No acute intracranial pathology.
[2022-05-22 14:53] VITALS: BP 170/70; PULSE 99; RESP 18; TEMP 36.6; O2SAT 95; BMI 30.9
--- NOTE | 2022-05-22 14:54 | ED_ITS ---
HPI - Headache General Chief Complaint: Headache <VON Coleman - Last Filed: 05/22/22 14:56> Stated Complaint: Migraine Weakness <VON Coleman Last Filed: 05/22/22 14:56> Time Seen by Provider: 05/22/22 16:52 <VON Coleman Last Filed: 05/22/22 14:56> History of Present Illness HPI Narrative: patient complains of migraine headache for several days which she says is similar to previous headaches but significantly worse, she does have photophobia, the pain is all around her head, she has nausea but no vomiting. she says the headache started gradually, there is no injury she denies any fever, she is not dizzy or can, she says the pain is severe Second complaint is today she developed a cough which has been getting worse throughout the day and she started to feel body aches in fatigue, there is no shortness of breath no chest pain and no vomiting <VON Oakley - Last Filed: 05/22/22 18:55> Related Data Home Medications: Home Medications Medication Instructions Recorded Confirmed acetaminophen 300 mg-codeine 30 mg 1 tab PO DAILY PRN pain 08/22/21 tablet atorvastatin 20 mg tablet 20 mg PO DAILY 08/22/21 cyclobenzaprine 10 mg tablet 10 mg PO BID PRN 08/22/21 levothyroxine 75 mcg tablet 75 mcg PO DAILY 08/22/21 metoprolol succinate 100 mg 100 mg PO DAILY 08/22/21 tablet,extended release 24 hr omeprazole 20 mg capsule,delayed 20 mg PO DAILY 08/22/21 release ropinirole 0.25 mg tablet 0.25 mg PO BID 08/22/21 spironolactone 25 mg tablet 25 mg PO DAILY 08/22/21 Previous Rx's Medication Instructions Recorded solifenacin 10 mg tablet (Vesicare) 10 mg PO DAILY #30 tabs 08/22/21 albuterol sulfate 90 mcg/actuation 2 puff inhalation Q6H PRN 05/22/22 aerosol inhaler shortness of breath or wheezing #6.7 grams benzonatate 100 mg capsule 100 mg PO BID PRN cough #14 caps 05/22/22 cwlopsljam-fyogafbfodvdl-kdisvvez 1 cap PO TID PRN pain #8 caps 05/22/22 50 mg-300 mg-40 mg capsule (Fioricet) oseltamivir 75 mg capsule (Tamiflu) 75 mg PO BID 5 days #10 caps 05/22/22 <VON Coleman - Last Filed: 05/22/22 14:56> Allergies/Adverse Reactions: Allergies Allergy/AdvReac Type Severity Reaction Status Date / Time gluten [GLUTEN] Allergy Unknown UNKNOWN Verified 05/22/22 12:27 mushroom Allergy Unknown UNKNOWN Verified 05/22/22 12:27 <VON Coleman - Last Filed: 05/22/22 14:56> Review of Systems Review of Systems: positive for headache for several days and 1 day of body aches and cough Denies fever chills dizziness weakness fainting feeling faint, denies abrupt onset of headache denies any trauma denies any fever, no vomiting no vision changes no confusion, no stiff neck no chest pain no shortness of breath no abdominal pain no vomiting diarrhea or dysuria no skin rash no problem walking <VON Oakley - Last Filed: 05/22/22 18:55> Yes all other systems are reviewed and are negative <VON Oakley - Last Filed: 05/22/22 18:55> [facility] Past Medical History Source: nursing notes reviewed <VON Oakley - Last Filed: 05/22/22 18:55> Medical History: Medical History delivery delivered Femur fracture, left Femur fracture, right Heart murmur Hyperlipidemia Hypertension Kidney disease Migraine Overactive adult syndrome Overactive bladder Presence of implantable pulmonary artery pressure and heart rate monitoring system Restless Right knee injury Right shoulder injury Thyroid disease <VON Coleman - Last Filed: 05/22/22 14:56> Surgical History: Surgical History History of surgery <VON Coleman - Last Filed: 05/22/22 14:56> Social History Social History: Social History Alcohol intake: never Advance Directives: Yes Advance Directives on File: Yes Advance Directives Date on File: 09/10/20 <VON Coleman - Last Filed: 05/22/22 14:56> Physical Exam Vital Signs: Vital Signs: Last Vital Signs Temp 97.8 F 05/22/22 14:53 Pulse 86 05/22/22 18:12 Resp 18 05/22/22 14:53 BP 158/60 H 05/22/22 18:12 Pulse Ox 95 05/22/22 18:12 O2 Del Method 05/22/22 18:12 BMI result Body Mass Index 30.9 <VON Coleman - Last Filed: 05/22/22 14:56> Vital Signs: Last Vital Signs Temp 97.8 F 05/22/22 14:53 Pulse 86 05/22/22 18:12 Resp 18 05/22/22 14:53 BP 158/60 H 05/22/22 18:12 Pulse Ox 95 05/22/22 18:12 O2 Del Method 05/22/22 18:12 BMI result Body Mass Index 30.9 <VON Oakley - Last Filed: 05/22/22 18:55> Vital Signs: Last Vital Signs Temp 97.8 F 05/22/22 14:53 Pulse 86 05/22/22 18:12 Resp 18 05/22/22 14:53 BP 158/60 H 05/22/22 18:12 Pulse Ox 95 05/22/22 18:12 O2 Del Method 05/22/22 18:12 BMI result Body Mass Index 30.9 <VON Lang - Last Filed: 05/22/22 19:32> general appearance is uncomfortable appearing in dark room with eyes shielded from light The eyes pupils equal round reactive to light, extraocular motions are intact, positive photophobia Sinuses are nontender Pharynx is clear, mucous membranes are moist Neck is supple Chest clear to auscultation bilateral Heart no murmur Abdomen soft nontender Extremities full range of motion x4 Neuro gait and balance are normal, interaction both comprehension and expression are normal cranial nerves 2-12 intact as tested motor is 5/5 x4 and sensation intact and symmetrical in extremities <VON Oakley - Last Filed: 05/22/22 18:55> Course Course Course Narrative: RME-15PM - 67yoF c PMHx of Migraine headaches presenting to the ER with complaints of migraine headache for the past 6 days. Reports that she went to an urgent care prior to arrival and give her medication although patient's health insurance does not cover the medication. She called back to urgent care and they told to come here for further evaluation treatment. She reports it feels like a normal migraine headaches. She denies any fevers, change in vision, neck pain/st iffness, trouble swallowing or breathing or any other symptoms complaints or concerns at this time Plan: COVID/RSV/flu swab. Patient to be seen in [facility] [place]. <VON Coleman - Last Filed: 05/22/22 14:56> RME-15PM - 67yoF c PMHx of Migraine headaches presenting to the ER with complaints of migraine headache for the past 6 days. Reports that she went to an urgent care prior to arrival and give her medication although patient's health insurance does not cover the medication. She called back to urgent care and they told to come here for further evaluation treatment. She reports it feels like a normal migraine headaches. She denies any fevers, change in vision, neck pain/stiffness, trouble swallowing or breathing or any other symptoms complaints or concerns at this time Plan: COVID/RSV/flu swab. Patient to be seen in [facility]. Patient was seen with 2 complaints 1st complaint is several days of a migraine that is similar to her prior migraines but she says much more painful and worse than any previous Second complaint is she says yesterday she developed a cough body aches and fatigue Today she did test positive for flu and I will write Tamiflu given that it is likely that her flu began yesterday Chest x-ray was negative, CT is pending 19:00 case is signed out to physician perinatal breastfeeding assistant Fritz to re-evaluate and dispo patient as well as follow CT and lab results <VON Oakley - Last F iled: 05/22/22 18:55> Reevaluation(s) Reevaluation #1: Patient feels better on reevaluation. Patient cleared for discharge. <VON Lang - Last Filed: 05/22/22 19:32> Time: 19:32 <VON Lang - Last Filed: 05/22/22 19:32> Medications Administered Discontinued Medications Generic Name Dose Route Start Last Admin Trade Name Freq PRN Reason Stop Dose Admin Dexamethasone Sodium Phosphate 10 mg 05/22/22 17:08 05/22/22 18:50 Dexamethasone Sod Phosphate 10 Mg/Ml Vial IVPUSH 05/22/22 17:09 10 mg ONCE ONE Administration Diphenhydramine HCl 50 mg 05/22/22 17:08 05/22/22 18:50 Diphenhydramine Hcl 50 Mg/Ml Vial IVPUSH 05/22/22 17:09 50 mg ONCE ONE Administration Sodium Chloride 1,000 mls @ 999 mls/hr 05/22/22 17:15 05/22/22 18:51 Ns IVCONT 05/22/22 18:15 999 mls/hr .Q1H1M ESE Administration Ketorolac Tromethamine 30 mg 05/22/22 17:08 05/22/22 18:51 Ketorolac Tromethamine 30 Mg/Ml Vial IVPUSH 05/22/22 17:09 30 mg ONCE ONE Administration Prochlorperazine Edisylate 10 mg 05/22/22 17:08 05/22/22 18:50 Prochlorperazine Edisylate 10 Mg/2 Ml Vial IVPUSH 05/22/22 17:09 10 mg ONCE ONE Administration <VON Coleman - Last Filed: 05/22/22 14:56> Medications Administered Discontinued Medications Generic Name Dose Route Start Last Admin Trade Name Freq PRN Reason Stop Dose Admin Dexamethasone Sodium Phosphate 10 mg 05/22/22 17:08 05/22/22 18:50 Dexamethasone Sod Phosphate 10 Mg/Ml Vial IVPUSH 05/22/22 17:09 10 mg ONCE ONE Administration Diphenhydramine HCl 50 mg 05/22/22 17:08 05/22/22 18:50 Diphenhydramine Hcl 50 Mg/Ml Vial IVPUSH 05/22/22 17:09 50 mg ONCE ONE Administration Sodium Chloride 1,000 mls @ 999 mls/hr 05/22/22 17:15 05/22/22 18:51 Ns IVCONT 05/22/22 18:15 999 mls/hr .Q1H1M ESE Administration Ketorolac Tromethamine 30 mg 05/22/22 17:08 05/22/22 18:51 Ketorolac Tromethamine 30 Mg/Ml Vial IVPUSH 05/22/22 17:09 30 mg ONCE ONE Administration Prochlorperazine Edisylate 10 mg 05/22/22 17:08 05/22/22 18:50 Prochlorperazine Edisylate 10 Mg/2 Ml Vial IVPUSH 05/22/22 17:09 10 mg ONCE ONE Administration <VON Oakley - Last Filed: 05/22/22 18:55> Medications Administered Discontinued Medications Generic Name Dose Route Start Last Admin Trade Name Brandi PRN Reason Stop Dose Admin Dexamethasone Sodium Phosphate 10 mg 05/22/22 17:08 05/22/22 18:50 Dexamethasone Sod Phosphate 10 Mg/Ml Vial IVPUSH 05/22/22 17:09 10 mg ONCE ONE Administration Diphenhydramine HCl 50 mg 05/22/22 17:08 05/22/22 18:50 Diphenhydramine Hcl 50 Mg/Ml Vial IVPUSH 05/22/22 17:09 50 mg ONCE ONE Administration Sodium Chloride 1,000 mls @ 999 mls/hr 05/22/22 17:15 05/22/22 18:51 Ns IVCONT 05/22/22 18:15 999 mls/hr .Q1H1M ESE Administration Ketorolac Tromethamine 30 mg 05/22/22 17:08 05/22/22 18:51 Ketorolac Tromethamine 30 Mg/Ml Vial IVPUSH 05/22/22 17:09 30 mg ONCE ONE Administration Prochlorperazine Edisylate 10 mg 05/22/22 17:08 05/22/22 18:50 Prochlorperazine Edisylate 10 Mg/2 Ml Vial IVPUSH 05/22/22 17:09 10 mg ONCE ONE Administration <VON Lang - Last Filed: 05/22/22 19:32> Medical Decision Making Lab Data Result Diagrams: : 05/22/22 18:40 05/22/22 18:40 <VON Coleman - Last Filed: 05/22/22 14:56> Labs: Lab Results 05/22/22 05/22/22 05/22/22 Range/Units 15:40 18:40 18:40 WBC 7.7 (4.8-10.8) X10*3/uL RBC 4.52 (4.20-5.50) X10*6/uL Hgb 13.6 (12.0-16.0) g/dl Hct 41.2 (37.0-47.0) % MCV 91.2 (80.0-98.0) fL MCH 30.1 (27.0-33.0) pg MCHC 33.0 (31.0-35.0) g/dl RDW 13.3 (11.0-16.0) % Plt Count 183 (160-400) X10*3/uL MPV 11.0 (9.4-12.3) fL Immature Gran % (Auto) 0.5 H (0.0-0.4) % Neut % (Auto) 83.6 H (45-73) % Lymph % (Auto) 5.3 L (20-40) % Clark % (Auto) 9.8 (2-11) % Eos % (Auto) 0.1 (0-4) % Baso % (Auto) 0.7 (0-2) % Lymph # (Auto) 0.4 L (1.2-4.9) X10*3/uL Clark # (Auto) 0.8 (0.1-1.2) X10*3/uL Eos # (Auto) 0.0 (0.0-0.4) X10*3/uL Baso # (Auto) 0.1 (0.0-0.2) X10*3/uL Abs Immat Gran (auto) 0.04 H (0.00-0.03) X10*3/uL Absolute Neuts (auto) 6.4 (2.0-8.3) x10*3/uL Absolute Nucleated RBC 0.000 (0.0-0.012) X10*3/uL Nucleated RBC % (auto) 0.0 (0.0-0.2) /100WBC Sodium 137 (135-145) mmol/L Potassium 5.0 D (3.3-5.1) mmol/L Chloride 105 (96-108) mmol/L Carbon Dioxide 20 L (22-29) mmol/L Anion Gap 17 (12-20) BUN 19 H (9-16) mg/dL Creatinine 0.90 (0.5-1.4) mg/dL Estim Creat Clear Calc 64.3 Estimated GFR > 60 Random Glucose 100 (60-115) mg/dL Calcium 9.0 (8.4-10.2) mg/dL Influenza Type A (PCR) POSITIVE A (Negative) Influenza Type B (PCR) NEGATIVE (Negative) RSV RNA Qual (PCR) NEGATIVE (Negative) SARS-CoV-2 RNA (RT-PCR) NEGATIVE (Negative) <VON Coleman - Last Filed: 05/22/22 14:56> Lab Results 05/22/22 05/22/22 05/22/22 Range/Units 15:40 18:40 18:40 WBC 7.7 (4.8-10.8) X10*3/uL RBC 4.52 (4.20-5.50) X10*6/uL Hgb 13.6 (12.0-16.0) g/dl Hct 41.2 (37.0-47.0) % MCV 91.2 (80.0-98.0) fL MCH 30.1 (27.0-33.0) pg MCHC 33.0 (31.0-35.0) g/dl RDW 13.3 (11.0-16.0) % Plt Count 183 (160-400) X10*3/uL MPV 11.0 (9.4-12.3) fL Immature Gran % (Auto) 0.5 H (0.0-0.4) % Neut % (Auto) 83.6 H (45-73) % Lymph % (Auto) 5.3 L (20-40) % Clark % (Auto) 9.8 (2-11) % Eos % (Auto) 0.1 (0-4) % Baso % (Auto) 0.7 (0-2) % Lymph # (Auto) 0.4 L (1.2-4.9) X10*3/uL Clark # (Auto) 0.8 (0.1-1.2) X10*3/uL Eos # (Auto) 0.0 (0.0-0.4) X10*3/uL Baso # (Auto) 0.1 (0.0-0.2) X10*3/uL Abs Immat Gran (auto) 0.04 H (0.00-0.03) X10*3/uL Absolute Neuts (auto) 6.4 (2.0-8.3) x10*3/uL Absolute Nucleated RBC 0.000 (0.0-0.012) X10*3/uL Nucleated RBC % (auto) 0.0 (0.0-0.2) /100WBC Sodium 137 (135-145) mmol/L Potassium 5.0 D (3.3-5.1) mmol/L Chloride 105 (96-108) mmol/L Carbon Dioxide 20 L (22-29) mmol/L Anion Gap 17 (12-20) BUN 19 H (9-16) mg/dL Creatinine 0.90 (0.5-1.4) mg/dL Estim Creat Clear Calc 64.3 Estimated GFR > 60 Random Glucose 100 (60-115) mg/dL Calcium 9.0 (8.4-10.2) mg/dL Influenza Type A (PCR) POSITIVE A (Negative) Influenza Type B (PCR) NEGATIVE (Negative) RSV RNA Qual (PCR) NEGATIVE (Negative) SARS-CoV-2 RNA (RT-PCR) NEGATIVE (Negative) <VON Oakley - Last Filed: 05/22/22 18:55> Lab Results 05/22/22 05/22/22 05/22/22 Range/Units 15:40 18:40 18:40 WBC 7.7 (4.8-10.8) X10*3/uL RBC 4.52 (4.20-5.50) X10*6/uL Hgb 13.6 (12.0-16.0) g/dl Hct 41.2 (37.0-47.0) % MCV 91.2 (80.0-98.0) fL MCH 30.1 (27.0-33.0) pg MCHC 33.0 (31.0-35.0) g/dl RDW 13.3 (11.0-16.0) % Plt Count 183 (160-400) X10*3/uL MPV 11.0 (9.4-12.3) fL Immature Gran % (Auto) 0.5 H (0.0-0.4) % Neut % (Auto) 83.6 H (45-73) % Lymph % (Auto) 5.3 L (20-40) % Clark % (Auto) 9.8 (2-11) % Eos % (Auto) 0.1 (0-4) % Baso % (Auto) 0.7 (0-2) % Lymph # (Auto) 0.4 L (1.2-4.9) X10*3/uL Clark # (Auto) 0.8 (0.1-1.2) X10*3/uL Eos # (Auto) 0.0 (0.0-0.4) X10*3/uL Baso # (Auto) 0.1 (0.0-0.2) X10*3/uL Abs Immat Gran (auto) 0.04 H (0.00-0.03) X10*3/uL Absolute Neuts (auto) 6.4 (2.0-8.3) x10*3/uL Absolute Nucleated RBC 0.000 (0.0-0.012) X10*3/uL Nucleated RBC % (auto) 0.0 (0.0-0.2) /100WBC Sodium 137 (135-145) mmol/L Potassium 5.0 D (3.3-5.1) mmol/L Chloride 105 (96-108) mmol/L Carbon Dioxide 20 L (22-29) mmol/L Anion Gap 17 (12-20) BUN 19 H (9-16) mg/dL Creatinine 0.90 (0.5-1.4) mg/dL Estim Creat Clear Calc 64.3 Estimated GFR > 60 Random Glucose 100 (60-115) mg/dL Calcium 9.0 (8.4-10.2) mg/dL Influenza Type A (PCR) POSITIVE A (Negative) Influenza Type B (PCR) NEGATIVE (Negative) RSV RNA Qual (PCR) NEGATIVE (Negative) SARS-CoV-2 RNA (RT-PCR) NEGATIVE (Negative) <VON Lang - Last Filed: 05/22/22 19:32> Discharge Plan Discharge Clinical Impression: Migraine, Influenza <VON Coleman - Last Filed: 05/22/22 14:56> Additional Instructions: you tested positive for the flu so we are treating with Tamiflu Follow with your doctor for further evaluation of her migraine headaches Return to ER any time any worse condition or any concerns <VON Coleman - Last Filed: 05/22/22 14:56> Prescriptions: New oseltamivir [Tamiflu] 75 mg capsule 75 mg PO BID 5 Days Qty: 10 0RF No Action benzonatate 100 mg capsule 100 mg PO BID PRN (Reason: cough) Qty: 14 0RF albuterol sulfate 90 mcg/actuation HFA aerosol inhaler 2 puff inhalation Q6H PRN (Reason: shortness of breath or wheezing) Qty: 6.7 0RF brwsxfxlny-sanpfylguiwdd-vivb [Fioricet] 50-300-40 mg capsule 1 cap PO TID PRN (Reason: pain) Qty: 8 0RF spironolactone 25 mg tablet 25 mg PO DAILY omeprazole 20 mg capsule,delayed release(DR/EC) 20 mg PO DAILY ropinirole 0.25 mg tablet 0.25 mg PO BID levothyroxine 75 mcg tablet 75 mcg PO DAILY atorvastatin 20 mg tablet 20 mg PO DAILY acetaminophen-codeine 300-30 mg tablet 1 tab PO DAILY PRN (Reason: pain) cyclobenzaprine 10 mg tablet 10 mg PO BID PRN metoprolol succinate 100 mg tablet extended release 24 hr 100 mg PO DAILY solifenacin [Vesicare] 10 mg tablet 10 mg PO DAILY Qty: 30 3RF <VON Coleman - Last Filed: 05/22/22 14:56>
[2022-05-22 16:37] LABS: Influenza A PCR POSITIVE (Negative); Influenza B PCR NEGATIVE (Negative); Resp Syncy Virus RNA Qual PCR NEGATIVE (Negative); SARS COV2 PCR INHOUSE NEGATIVE (Negative)
[2022-05-22 18:12] VITALS: BP 158/60; PULSE 86; O2SAT 95
[2022-05-22 18:47] LABS: MANUAL DIFF FLAG NO
[2022-05-22 18:48] LABS: Basophils Absolute Auto 0.1 X10*3/uL (0.0-0.2); Basophils Percent Auto 0.7 % (0-2); Eosinophils Percent Auto 0.1 % (0-4); Hematocrit 41.2 % (37.0-47.0); Hemoglobin 13.6 g/dl (12.0-16.0); Imm Gran Abs Auto 0.04 X10*3/uL (0.00-0.03); Imm Gran Pct Auto 0.5 % (0.0-0.4); Lymphocytes Absolute Auto 0.4 X10*3/uL (1.2-4.9); Lymphocytes Percent Auto 5.3 % (20-40); Mean Corpuscular Hemoglobin 30.1 pg (27.0-33.0); Mean Corpuscular Volume 91.2 fL (80.0-98.0); Monocytes Absolute Auto 0.8 X10*3/uL (0.1-1.2); Monocytes Percent Auto 9.8 % (2-11); Neutrophils Absolute Auto 6.4 x10*3/uL (2.0-8.3); Neutrophils Percent Auto 83.6 % (45-73); Platelet Count 183 X10*3/uL (160-400); Red Blood Count 4.52 X10*6/uL (4.20-5.50); Red Cell Distribution Width 13.3 % (11.0-16.0); White Blood Count 7.7 X10*3/uL (4.8-10.8)
[2022-05-22] MEDS: dexAMETHasone sod phosphate 10 MG/ML VIAL IVPUSH (18:50)
[2022-05-22] MEDS: Prochlorperazine Edisylate 10 MG/2 ML VIAL IVPUSH (18:50)
[2022-05-22] MEDS: diphenhydrAMINE HCL 50 MG/ML VIAL IVPUSH (18:50)
[2022-05-22] MEDS: Ketorolac Tromethamine 30 MG/ML VIAL IVPUSH (18:51)
[2022-05-22] MEDS: 0.9 % Sodium Chloride 1,000 ML 999 ML IVCONT (18:51)
[2022-05-22 19:21] LABS: Anion Gap 17 (12-20); Blood Urea Nitrogen 19 mg/dL (9-16); Carbon Dioxide 20 mmol/L (22-29); Chloride 105 mmol/L (96-108); Creatinine Clr Calc Pharmacy 64.3; Estimated Glomerular Filt Rate > 60; Glucose Random 100 mg/dL (60-115); Sodium 137 mmol/L (135-145)
[2022-05-22] MEDS: ondansetron HCL 4 MG/2 ML VIAL IVPUSH (19:52)
[2022-05-22] MEDS: Butalb/Acetamin/Caff 50/325/40 TABLET 1 TAB PO (19:52)
[2022-05-22 20:37] VITALS: BP 136/48; PULSE 71; RESP 15; TEMP 37.2
--- NOTE | 2022-05-22 21:45 | PC.NURSE ---
Discharge instructions reviewed with pt. Pt verbalizes understanding.
== END 2022-05-22 21:46 | disposition home or self-care (01) ==
PROVIDERS: Physician Assistant Medical; Emergency Provider Student in an Organized Health Care Education/Training Program; PCP Physician Assistant Medical
DX: J11.1 Influenza due to unidentified influenza virus with other respiratory manifestations (principal); G43.909 Migraine, unspecified, not intractable, without status migrainosus; E78.5 Hyperlipidemia, unspecified; I10 Essential (primary) hypertension; Z79.02 Long term (current) use of antithrombotics/antiplatelets
CPT/HCPCS: 0241U; 36415; 70450; 71046; 80048; 85025; 96361; 96374; 96375; 99284; J1100; J1200; J1885; J2405

== ENCOUNTER 2022-06-02 11:36 | Outpatient (REF) | payer MEDICARE, MEDICAID, SELFPAY ==
--- NOTE | ~2022-06-02 | MM_ITS ---
EXAMINATION: MM DIAGNOSTIC DIGITAL BREAST TOMOSYNTHESIS, BILATERAL CLINICAL INFORMATION: 1 year follow-up bilateral calcifications. The lifetime risk of breast cancer based on the Tyrer-Cuzick Model is 10.2%. COMPARISON: Mammography: May 27, 2021 and studies dating back to September 20, 2015 TECHNIQUE: Digital breast tomosynthesis is performed in both the craniocaudal and mediolateral oblique views along with computer-aided detection (CAD). Synthesized 2D images are generated from the tomosynthesis. Spot medication views of both breasts performed in craniocaudal and 90 degree mediolateral views. FINDINGS: There are scattered areas of fibroglandular density (ACR BI-RADS breast composition Category b). There is a stable parenchymal pattern seen bilaterally with no new suspicious dominant mass. There is stability of calcifications bilaterally. Results are provided to the patient at time of visit by the technologist. MM/MM tomosynthesis diagnostic BI IMPRESSION: There are no significant changes from prior study. ASSESSMENT: BI-RADS 2: Benign RECOMMENDATION: Routine annual mammography screening. This patient's information was entered into a reminder system with a target due date for their next mammogram.
== END 2022-06-02 11:37 | disposition home or self-care (01) ==
LOC: HO.MAMMO 11:36
PROVIDERS: PCP Physician Assistant Medical; Visit Provider Physician Assistant Medical
DX: R92.8 Other abnormal and inconclusive findings on diagnostic imaging of breast (principal)
CPT/HCPCS: 77062; 77066

== ENCOUNTER 2023-04-07 13:29 | Outpatient (AMB) | payer MEDICARE, MEDICAID, SELFPAY ==
--- NOTE | 2023-04-07 14:04 | HO.NEPHOV ---
HPI HPI Comments History of Present Illness Details 67 year old female hx of htn, hld, hypothyroidism and CKD is here for follow-up [facility] Medical History (Updated 05/05/23 @ 12:32 by Manpreet Luke MD) Presence of implantable pulmonary artery pressure and heart rate monitoring system Right knee injury Right shoulder injury Femur fracture, right Femur fracture, left delivery delivered Migraine Restless Kidney disease Heart murmur Overactive bladder Overactive adult syndrome Thyroid disease Hyperlipidemia Hypertension Surgical History History of surgery Social History Alcohol intake: never Substance Use Type: Marijuana Advance Directives Date on File: 09/10/20 Vital Signs 04/07/23 14:10 Height 5 ft 4 in Weight 180 lb 2 oz BMI 30.9 BP 126/70 Blood Pressure Location Lt popliteal Position Sitting Pulse Source Pulse Oximeter Pulse Oximetry (%) 99 Oxygen Delivery Method Room Air Physical Exam Vital Signs: Last Vital Signs BP 126/70 04/07/23 14:10 Pulse Ox 99 04/07/23 14:10 Oxygen Delivery Method Room Air 04/07/23 14:10 BMI result Body Mass Index 30.9 Const General: comfortable Nutritional Appearance: well nourished Orientation/consciousness: patient oriented x3 HEENT Head: No normal to inspection Mouth: moist mucous membranes Neck Neck: Yes supple and Yes no JVD Resp Auscultation: clear to auscultation bilaterally, no rales and rub present Cardio Jugular venous distension: no JVD Palpation: no palpable S3 and no palpable S4 Heart sounds: no rubs GI Palpation (GI): Soft to palpation and nontender Percussion: No Fluid wave present General: Yes no CVA tenderness Back/Spine/Pelvis Back: no CVA tenderness Skin General skin exam: no rashes or lesions noted Neuro General: patient oriented x3 Extrem General: Yes no pedal edema and No clubbing Results Reviewed Results Reviewed: All results are reviewed Recent creatinine was 0.9 Assessment & Plan Assessment & Plan (1) Hypertension: Code(s): I10 - Essential (primary) hypertension (2) CKD (chronic kidney disease): Code(s): N18.9 - Chronic kidney disease, unspecified Plan From a renal standpoint Lauren is doing well. Renal function is stable at baseline. Blood pressure control. Increase to stay on low-sodium diet. Continue with same dose of spironolactone. Will continue monitor renal function closely. Avoid nephrotoxins including NSAIDs. Orders: Orders Electrolytes 4 Months I10 - Essential (primary) hypertension Blood Urea Nitrogen 4 Months I10 - Essential (primary) hypertension Creatinine 4 Months I10 - Essential (primary) hypertension Calcium 4 Months I10 - Essential (primary) hypertension Coding Level of Care Code Est Pt Level 3 (94832) Diagnoses Hypertension I10 CKD (chronic kidney disease) N18.9
[2023-04-07 14:10] VITALS: BP 126/70; O2SAT 99; BMI 30.9
== END 2023-04-07 14:26 | disposition home or self-care (01) ==
LOC: HO.HKA 13:29
PROVIDERS: PCP Physician Assistant Medical; Visit Provider Internal Medicine Hypertension Specialist
DX: I12.9 Hypertensive chronic kidney disease with stage 1 through stage 4 chronic kidney disease, or unspecified chronic kidney disease (principal); N18.9 Chronic kidney disease, unspecified
CPT/HCPCS: 99213

== ENCOUNTER → 2023-04-07 13:29 | Outpatient (BNVA) | payer OTHER, SELFPAY | PROVIDERS: PCP Physician Assistant Medical; Visit Provider Internal Medicine Hypertension Specialist | DX: I12.9 Hypertensive chronic kidney disease with stage 1 through stage 4 chronic kidney disease, or unspecified chronic kidney disease (principal); N18.9 Chronic kidney disease, unspecified | CPT/HCPCS: 99212 ==

== ENCOUNTER 2023-08-09 10:26 | Outpatient (AMB) | payer OTHER, MEDICAID, SELFPAY ==
[2023-08-09 10:29] VITALS: BP 138/60; BMI 31.6
--- NOTE | 2023-08-09 10:29 | HO.NEPHOV_ITS ---
HPI HPI Comments History of Present Illness Details 67 year old female hx of htn, hld, hypot hyroidism and CKD is here for follow-up Still in a fdc No new issues [facility] Medical History (Updated 08/09/23 @ 10:39 by Manpreet Luke MD) Presence of implantable pulmonary artery pressure and heart rate monitoring system Right knee injury Right shoulder injury Femur fracture, right Femur fracture, left delivery delivered Migraine Restless Kidney disease Heart murmur Overactive bladder Overactive adult syndrome Thyroid disease Hyperlipidemia Hypertension Surgical History History of surgery Social History Alcohol intake: never Substance Use Type: Marijuana Advance Directives Date on File: 09/10/20 Vital Signs 08/09/23 10:29 Height 5 ft 4 in Weight 184 lb BMI 31.6 BP 138/60 Blood Pressure Location Lt brachial Position Sitting Physical Exam Vital Signs: Last Vital Signs BP 138/60 08/09/23 10:29 BMI result Body Mass Index 31.6 Const General: comfortable Nutritional Appearance: well nourished Orientation/consciousness: patient oriented x3 HEENT Head: No normal to inspection Mouth: moist mucous membranes Neck Neck: Yes supple and Yes no JVD Resp Auscultation: clear to auscultation bilaterally, no rales and rub present Cardio Jugular venous distension: no JVD Palpation: no palpable S3 and no palpable S4 Heart sounds: no rubs GI Palpation (GI): Soft to palpation and nontender Percussion: No Fluid wave present General: Yes no CVA tenderness Back/Spine/Pelvis Back: no CVA tenderness Skin General skin exam: no rashes or lesions noted Neuro General: patient oriented x3 Extrem General: No clubbing and Yes edema Assessment & Plan Assessment & Plan (1) Hypertension: Code(s): I10 - Essential (primary) hypertension (2) CKD (chronic kidney disease): Code(s): N18.9 - Chronic kidney disease, unspecified (3) Edema: Code(s): R60.9 - Edema, unspecified Plan From a renal standpoint Lauren is doing well. Renal function is stable at baseline. Blood pressure control. Encouraged to stay on low-sodium diet. Continue with same dose of spironolactone. Will continue monitor renal function closely. Avoid nephrotoxins including NSAIDs. Orders: Orders Comprehensive Met. Panel Today N18.9 - Chronic kidney disease, unspecified, R60.9 - Edema, unspecified Creatinine Urine Today N18.9 - Chronic kidney disease, unspecified, R60.9 - Edema, unspecified UA and rflx microscopic Today N18.9 - Chronic kidney disease, unspecified, R60.9 - Edema, unspecified Complete Blood Count no Diff Today N18.9 - Chronic kidney disease, unspecified, R60.9 - Edema, unspecified Vitamin D 25-OH (D2 and D3) Today N18.9 - Chronic kidney disease, unspecified, R60.9 - Edema, unspecified Total Protein Urine Random Today N18.9 - Chronic kidney disease, unspecified, R60.9 - Edema, unspecified Medications: Refilled spironolactone 25 mg PO DAILY 30 tabs 6RF Coding Level of Care Code Est Pt Level 4 (39902) Diagnoses Hypertension I10 CKD (chronic kidney disease) N18.9 Edema R60.9 Results Reviewed Nephrology Results: Hgb 13.6 g/dl (12.0-16.0) 05/22/22 WBC 7.7 X10*3/uL (4.8-10.8) 05/22/22 Plt Count 183 X10*3/uL (160-400) 05/22/22 Sodium 137 mmol/L (135-145) 05/22/22 Potassium 5.0 mmol/L (3.3-5.1) 05/22/22 Chloride 105 mmol/L (96-108) 05/22/22 Carbon Dioxide 20 mmol/L (22-29) L 05/22/22 BUN 19 mg/dL (9-16) H 05/22/22 Creatinine 0.90 mg/dL (0.5-1.4) 05/22/22 Calcium 9.0 mg/dL (8.4-10.2) 05/22/22 PTH Intact 41 pg/mL (14-64) 03/14/21 Urine Protein Negative mg/dL (Neg-Trace) 04/16/22 Urine Creatinine 172.64 mg/dL 04/16/22 Protein/Creatinin Ratio 0.08 (<0.2) 04/16/22
== END 2023-08-09 10:44 | disposition home or self-care (01) ==
PROVIDERS: PCP Physician Assistant Medical; Visit Provider Internal Medicine Hypertension Specialist
DX: I12.9 Hypertensive chronic kidney disease with stage 1 through stage 4 chronic kidney disease, or unspecified chronic kidney disease (principal); N18.9 Chronic kidney disease, unspecified; R60.9 Edema, unspecified
CPT/HCPCS: 99214

== ENCOUNTER → 2023-08-09 10:26 | Outpatient (BNVA) | payer OTHER, MEDICAID, SELFPAY | PROVIDERS: PCP Physician Assistant Medical; Visit Provider Internal Medicine Hypertension Specialist | DX: I12.9 Hypertensive chronic kidney disease with stage 1 through stage 4 chronic kidney disease, or unspecified chronic kidney disease (principal); N18.9 Chronic kidney disease, unspecified; R60.9 Edema, unspecified | CPT/HCPCS: 36415; 80053; 82306; 85027; 99212 ==

== ENCOUNTER 2023-08-09 10:55 | Outpatient (REF) | payer MEDICARE, MEDICAID, SELFPAY ==
[2023-08-09 13:46] LABS: Hematocrit 42.8 % (37.0-47.0); Hemoglobin 13.5 g/dl (12.0-16.0); Mean Corpuscular HGB Conc 31.5 g/dl (31.0-35.0); Mean Corpuscular Hemoglobin 29.7 pg (27.0-33.0); Mean Corpuscular Volume 94.3 fL (80.0-98.0); Mean Platelet Volume 11.9 fL (9.4-12.3); Platelet Count 188 X10*3/uL (160-400); Red Blood Count 4.54 X10*6/uL (4.20-5.50); Red Cell Distribution Width 13.1 % (11.0-16.0); White Blood Count 8.5 X10*3/uL (4.8-10.8)
[2023-08-09 13:56] LABS: Alanine Aminotransferase 13 U/L (0-31); Albumin Level 3.9 g/dL (3.5-5.0); Alkaline Phosphatase 117 U/L (39-117); Anion Gap 10 (12-20); Aspartate Amino Transferase 15 U/L (5-31); Bilirubin Total 0.5 mg/dL (0.0-1.0); Blood Urea Nitrogen 21 mg/dL (9-16); Calcium 9.1 mg/dL (8.4-10.2); Carbon Dioxide 24 mmol/L (22-29); Chloride 112 mmol/L (96-108); Estimated Glomerular Filt Rate 48; Glucose Random 84 mg/dL (60-115); Potassium 4.2 mmol/L (3.3-5.1); Sodium 142 mmol/L (135-145); Total Protein 6.8 g/dL (6.5-8.0)
[2023-08-13 15:13] LABS: Vitamin D 25-OH, D2 <4 ng/mL; Vitamin D 25-OH, D3 25 ng/mL; Vitamin D 25-OH, Total 25 ng/mL (30-100)
== END 2023-08-09 10:56 | disposition home or self-care (01) ==
LOC: HO.10HDL 10:55
PROVIDERS: Visit Provider Internal Medicine Hypertension Specialist
DX: Z13.89 Encounter for screening for other disorder (principal)
CPT/HCPCS: 36415; 80053; 82306; 85027

== ENCOUNTER 2023-11-09 13:28 | Outpatient (REF) | payer OTHER, SELFPAY ==
--- NOTE | ~2023-11-09 | MM_ITS ---
EXAMINATION: MM SCREENING DIGITAL BREAST TOMOSYNTHESIS, BILATERAL CLINICAL INFORMATION: Screening. Asymptomatic. COMPARISON: Mammography: This study is compared with prior exams dating back to 2019. TECHNIQUE: Digital breast tomosynthesis is performed in both the craniocaudal and mediolateral oblique views along with computer-aided detection (CAD). Synthesized 2D images are generated from the tomosynthesis. FINDINGS: There are scattered areas of fibroglandular density (ACR BI-RADS breast composition Category b). There are no significant masses, abnormal calcifications, or other abnormalities. Few, bilateral, benign, unchanged calcifications are present. There are 2 tissue markers in the left breast. MM/MM tomosynthesis screening BI IMPRESSION: No mammographic evidence of malignancy. ASSESSMENT: BI-RADS BI-RADS 2 - Benign Findings RECOMMENDATION: Routine annual mammography screening. 1 year F/U This examination should not preclude the clinical evaluation of a suspicious palpable abnormality. This patient's information was entered into a reminder system with a target due date for their next mammogram.
== END 2023-11-09 13:29 | disposition home or self-care (01) ==
LOC: HO.MAMMO 13:28
PROVIDERS: PCP Physician Assistant Medical; Visit Provider Physician Assistant Medical
DX: Z12.31 Encounter for screening mammogram for malignant neoplasm of breast (principal)
CPT/HCPCS: 77063; 77067

== ENCOUNTER → 2023-11-09 15:15 | Outpatient (BNV) | payer OTHER, SELFPAY | PROVIDERS: PCP Physician Assistant Medical; Visit Provider Radiology Diagnostic Radiology | DX: Z12.31 Encounter for screening mammogram for malignant neoplasm of breast (principal) | CPT/HCPCS: 77063; 77067 ==

== ENCOUNTER 2024-01-07 23:22 | Emergency (ER) | payer OTHER, SELFPAY ==
--- NOTE | ~2024-01-07 | XR_ITS ---
EXAMINATION: XR CHEST CLINICAL INFORMATION: Shortness of breath COMPARISON: 05/22/2022 TECHNIQUE: 2 views of the chest were obtained. FINDINGS: Loop recorder overlies the anterior chest. Lung volumes are symmetric. No focal consolidation is seen. No evidence of pneumothorax, significant pleural effusion, or overt pulmonary edema. The cardiomediastinal contour is unremarkable. Right humeral head suture anchors are redemonstrated. No acute osseous findings are seen. XR/XR chest 2V IMPRESSION: No acute cardiopulmonary findings.
[2024-01-07 23:26] VITALS: BP 135/85; BP 149/74; PULSE 84; PULSE 85; RESP 18; TEMP 36.3; O2SAT 98; O2SAT 99; BMI 29.2
--- NOTE | 2024-01-08 00:04 | ECG_ITS ---
Test Reason : anxiety Blood Pressure : / mmHG Vent. Rate : 077 BPM Atrial Rate : 077 BPM P-R Int : 176 ms QRS Dur : 106 ms QT Int : 430 ms P-R-T Axes : 020 024 -04 degrees QTc Int : 486 ms Normal sinus rhythm Possible Left atrial enlargement RSR' or QR pattern in V1 suggests right ventricular conduction delay Borderline ECG When compared with ECG of 26-FEB-2020 10:30, T wave inversion now evident in Inferior leads Referred By: Tessie Bowden Electronically Signed By:Robert Pop
[2024-01-08 00:51] LABS: MANUAL DIFF FLAG NO
[2024-01-08 00:52] LABS: Basophils Absolute Auto 0.1 X10*3/uL (0.0-0.2); Basophils Percent Auto 0.9 % (0-2); Eosinophils Absolute Auto 0.2 X10*3/uL (0.0-0.4); Eosinophils Percent Auto 2.5 % (0-4); Hematocrit 40.6 % (37.0-47.0); Hemoglobin 13.4 g/dl (12.0-16.0); Imm Gran Abs Auto 0.03 X10*3/uL (0.00-0.03); Imm Gran Pct Auto 0.4 % (0.0-0.4); Lymphocytes Absolute Auto 1.8 X10*3/uL (1.2-4.9); Lymphocytes Percent Auto 21.3 % (20-40); Mean Corpuscular Hemoglobin 30.9 pg (27.0-33.0); Mean Corpuscular Volume 93.5 fL (80.0-98.0); Mean Platelet Volume 11.1 fL (9.4-12.3); Monocytes Percent Auto 11.4 % (2-11); Neutrophils Absolute Auto 5.4 x10*3/uL (2.0-8.3); Neutrophils Percent Auto 63.5 % (45-73); Platelet Count 195 X10*3/uL (160-400); Red Blood Count 4.34 X10*6/uL (4.20-5.50); Red Cell Distribution Width 13.8 % (11.0-16.0); White Blood Count 8.5 X10*3/uL (4.8-10.8)
[2024-01-08 01:09] LABS: Alanine Aminotransferase 15 U/L (0-31); Albumin Level 3.9 g/dL (3.5-5.0); Alkaline Phosphatase 78 U/L (39-117); Anion Gap 15 (12-20); Aspartate Amino Transferase 18 U/L (5-31); Bilirubin Direct 0.2 mg/dL (0.0-0.5); Bilirubin Total 0.5 mg/dL (0.0-1.0); Blood Urea Nitrogen 32 mg/dL (9-16); Calcium 9.5 mg/dL (8.4-10.2); Carbon Dioxide 22 mmol/L (22-29); Chloride 110 mmol/L (96-108); Creatinine Clr Calc Pharmacy 36.6; Estimated Glomerular Filt Rate 34; Glucose Random 94 mg/dL (60-115); Magnesium 2.7 mg/dL (1.6-2.6); Potassium 4.1 mmol/L (3.3-5.1); Sodium 143 mmol/L (135-145); Total Protein 6.7 g/dL (6.5-8.0)
[2024-01-08 01:10] LABS: Prothrombin Time 12.5 SEC (11.1-13.3)
[2024-01-08 01:15] LABS: Troponin-I High Sensitivity 4.6 ng/L (<3.5-17.0)
[2024-01-08 01:28] LABS: Influenza A PCR NEGATIVE (Negative); Influenza B PCR NEGATIVE (Negative); Resp Syncy Virus RNA Qual PCR NEGATIVE (Negative); SARS COV2 PCR INHOUSE NEGATIVE (Negative)
--- NOTE | 2024-01-08 04:50 | ED.GENADULT ---
HPI - General Adult General Chief complaint: Anxiety Stated complaint: ANXIETY Time Seen by Provider: 01/08/24 01:15 History of Present Illness ED Provider: Dave RG narrative: The patient is a 68-year-old female who moved into a new apartment today. She has been staying at a homeless nursing home in [place] and finally got her own apartment today. She says that she has been coughing a lot and tonight her coughing seemed worse and she also felt short of breath. She says that she does not have a history of asthma and that she has not been as smoker. Says she has used inhalers in the past however. She does not think she has had a fever. The patient is wearing a thumb spica cast on her right arm. She says that she her scaphoid bone 4 weeks ago and should be in the cast for 4 more weeks. Related Data Home Medications ?Medication ?Instructions ?Recorded ?Confirmed atorvastatin 20 mg tablet 20 mg PO DAILY 08/22/21 cyclobenzaprine 10 mg tablet 10 mg PO BID PRN 08/22/21 levothyroxine 75 mcg tablet 75 mcg PO DAILY 08/22/21 metoprolol succinate 100 mg 100 mg PO DAILY 08/22/21 tablet,extended release 24 hr omeprazole 20 mg capsule,delayed 20 mg PO DAILY 08/22/21 release ropinirole 0.25 mg tablet 0.25 mg PO BID 08/22/21 meclizine 25 mg tablet 25 mg PO TID 04/07/23 ondansetron 4 mg disintegrating 4 mg PO Q6H 04/07/23 tablet Previous Rx's ?Medication ?Instructions ?Recorded solifenacin 10 mg tablet (Vesicare) 10 mg PO DAILY #30 tabs 08/22/21 albuterol sulfate 90 mcg/actuation 2 puff inhalation Q6H PRN 05/22/22 aerosol inhaler shortness of breath or wheezing #6.7 grams benzonatate 100 mg capsule 100 mg PO BID PRN cough #14 caps 05/22/22 xkncvgiuth-faozcspgepzsw-amwdduao 1 cap PO TID PRN pain #8 caps 05/22/22 50 mg-300 mg-40 mg capsule (Fioricet) oseltamivir 75 mg capsule (Tamiflu) 75 mg PO BID 5 days #10 caps 05/22/22 spironolactone 25 mg tablet 25 mg PO DAILY #30 tabs 08/09/23 albuterol sulfate 90 mcg/actuation 2 puff inhalation Q4-6H PRN 01/08/24 aerosol inhaler shortness of breath or wheezing #8.5 grams azithromycin 250 mg tablet 250 mg PO DAILY 4 days #4 tabs 01/08/24 Allergies Allergy/AdvReac Type Severity Reaction Status Date / Time gluten [GLUTEN] Allergy Unknown UNKNOWN Verified 01/07/24 23:34 mushroom Allergy Unknown UNKNOWN Verified 01/07/24 23:34 Review of Systems Review of Systems: Yes all other systems are reviewed and are negative [facility] Past Medical History Medical History (Updated 01/09/24 @ 00:00 by Chela Baron) Presence of implantable pulmonary artery pressure and heart rate monitoring system Right knee injury Right shoulder injury Femur fracture, right Femur fracture, left delivery delivered Migraine Restless Kidney disease Heart murmur Overactive bladder Overactive adult syndrome Thyroid disease Hyperlipidemia Hypertension Surgical History History of surgery Social History Social History Alcohol intake: never Smoked in Last 30 Days: No Use of substances other than those prescribed or required for medical reasons: No Substance Use Type: Marijuana Advance Directives: Yes Advance Directives on File: Yes Advance Directives Date on File: 09/10/20 Do you have a plan to hurt others: No Plan Physical Exam ED Vital Signs: Vital Signs - 24 hr 01/07/24 23:26 01/08/24 05:08 01/08/24 05:35 Temperature 97.4 F Pulse Rate 85 79 Respiratory Rate 18 18 18 Blood Pressure 135/85 Pulse Oximetry 98 Oxygen Delivery Method Room Air BMI result Body Mass Index 29.2 Const Other: The patient is a chronically ill-appearing 68-year-old. She is edentulous. She was sleeping comfortably at the time that I examined her. She woke easily and did not seem in distress. Extrem Other: No calf swelling or tenderness, no peripheral edema, no lower extremity asymmetry. The patient is right arm has a thumb spica cast. Medications Administered Discontinued Medications Generic Name Dose Route Start Last Admin Trade Name Freq PRN Reason Stop Dose Admin Albuterol/Ipratropium 3 ml 01/08/24 04:54 01/08/24 05:08 Albuterol/Iprat 2.5/0.5mg 3 Ml Ampul.Neb INHALE 01/08/24 04:55 3 ml ONCE ONE Administration Azithromycin 500 mg 01/08/24 05:39 01/08/24 05:50 Azithromycin 500 Mg Tablet PO 01/08/24 05:40 500 mg ONCE ONE Administration Medical Decision Making Medical Decision Making [facility] Narrative: The patient is a 68-year-old female who presents with a complaint of shortness of breath. Here she did not appear overtly short of breath. She did not look particularly ill or toxic. She did have some wheezes on exam. She felt much better after bronchodilator treatment. She will be discharged on a course of azithromycin and she will be prescribed an albuterol inhaler. The patient has a history of chronic kidney disease. Her renal function today is worse than when last checked. The reason for this is not entirely clear. The patient was told about this and is advised to contact her cognos tm1 developer on Wednesday for a follow up appointment to discuss this further. Lab Data 01/08/24 00:46 01/08/24 00:46 Labs: Lab Results 01/08/24 Range/Units 00:46 WBC 8.5 (4.8-10.8) X10*3/uL RBC 4.34 (4.20-5.50) X10*6/uL Hgb 13.4 (12.0-16.0) g/dl Hct 40.6 (37.0-47.0) % MCV 93.5 (80.0-98.0) fL MCH 30.9 (27.0-33.0) pg MCHC 33.0 (31.0-35.0) g/dl RDW 13.8 (11.0-16.0) % Plt Count 195 (160-400) X10*3/uL MPV 11.1 (9.4-12.3) fL Immature Gran % (Auto) 0.4 (0.0-0.4) % Neut % (Auto) 63.5 (45-73) % Lymph % (Auto) 21.3 (20-40) % Flagler % (Auto) 11.4 H (2-11) % Eos % (Auto) 2.5 (0-4) % Baso % (Auto) 0.9 (0-2) % Lymph # (Auto) 1.8 (1.2-4.9) X10*3/uL [place]ler # (Auto) 1.0 (0.1-1.2) X10*3/uL Eos # (Auto) 0.2 (0.0-0.4) X10*3/uL Baso # (Auto) 0.1 (0.0-0.2) X10*3/uL Abs Immat Gran (auto) 0.03 (0.00-0.03) X10*3/uL Absolute Neuts (auto) 5.4 (2.0-8.3) x10*3/uL Absolute Nucleated RBC 0.000 (0.0-0.012) X10*3/uL Nucleated RBC % (auto) 0.0 (0.0-0.2) /100WBC PT 12.5 (11.1-13.3) SEC INR 1.0 (0.9-1.1) Sodium 143 (135-145) mmol/L Potassium 4.1 (3.3-5.1) mmol/L Chloride 110 H (96-108) mmol/L Carbon Dioxide 22 (22-29) mmol/L Anion Gap 15 (12-20) BUN 32 H (9-16) mg/dL Creatinine 1.52 H (0.5-1.4) mg/dL Estim Creat Clear Calc 36.6 Estimated GFR 34 Random Glucose 94 (60-115) mg/dL Calcium 9.5 (8.4-10.2) mg/dL Magnesium 2.7 H (1.6-2.6) mg/dL Total Bilirubin 0.5 (0.0-1.0) mg/dL Direct Bilirubin 0.2 (0.0-0.5) mg/dL AST 18 (5-31) U/L ALT 15 (0-31) U/L Alkaline Phosphatase 78 (39-117) U/L Troponin I High Sens 4.6 (<3.5-17.0) ng/L Total Protein 6.7 (6.5-8.0) g/dL Albumin 3.9 (3.5-5.0) g/dL Influenza Type A (PCR) NEGATIVE (Negative) Influenza Type B (PCR) NEGATIVE (Negative) RSV RNA Qual (PCR) NEGATIVE (Negative) SARS-CoV-2 RNA (RT-PCR) NEGATIVE (Negative) Discharge Plan Discharge Clinical Impression: Acute bronchitis, CKD (chronic kidney disease) Patient Disposition: Home, Self-Care Additional Instructions: I believe you have some degree of bronchitis causing your cough and shortness of breath. You have been started on a course of antibiotics, azithromycin. Please take this once a day as prescribed. I have also prescribed an inhaler which you may use for cough and shortness of breath. Use the inhaler 2-4 puffs every 4-6 hours as needed. Please plan on following up with your regular doctor to discuss your breathing symptoms. Your kidney function today looks a little bit worse than it has recently. I think it would be good for you to see your cognos tm1 developer to discuss this. Please call Dr. Ti booker on Wednesday morning to make a prompt follow up appointment to discuss your kidney function. Emergency room if worse. Prescriptions: New albuterol sulfate 90 mcg/actuation HFA aerosol inhaler 2 puff inhalation Q4-6H PRN (Reason: shortness of breath or wheezing) Qty: 8.5 0RF azithromycin 250 mg tablet 250 mg PO DAILY 4 Days Qty: 4 0RF Rx Instructions: start on day 2 of therapy No Action oseltamivir [Tamiflu] 75 mg capsule 75 mg PO BID 5 Days Qty: 10 0RF benzonatate 100 mg capsule 100 mg PO BID PRN (Reason: cough) Qty: 14 0RF albuterol sulfate 90 mcg/actuation HFA aerosol inhaler 2 puff inhalation Q6H PRN (Reason: shortness of breath or wheezing) Qty: 6.7 0RF haioqizqew-dxidffmtzjovc-flep [Fioricet] 50-300-40 mg capsule 1 cap PO TID PRN (Reason: pain) Qty: 8 0RF omeprazole 20 mg capsule,delayed release(DR/EC) 20 mg PO DAILY ropinirole 0.25 mg tablet 0.25 mg PO BID levothyroxine 75 mcg tablet 75 mcg PO DAILY atorvastatin 20 mg tablet 20 mg PO DAILY cyclobenzaprine 10 mg tablet 10 mg PO BID PRN metoprolol succinate 100 mg tablet extended release 24 hr 100 mg PO DAILY solifenacin [Vesicare] 10 mg tablet 10 mg PO DAILY Qty: 30 3RF ondansetron 4 mg tablet,disintegrating 4 mg PO Q6H meclizine 25 mg tablet 25 mg PO TID spironolactone 25 mg tablet 25 mg PO DAILY Qty: 30 6RF Referrals: Kadi Torres. Ricki Cherry [Provider Group] (bronchitis) Manpreet Luke MD [Physician] - (worsening kidney function) Interventions: ED Discharge Assessment Last Done: 01/08/24 05:59 Discharge Date/Time: 01/08/24 05:59 Print Language: Yemeni
[2024-01-08 05:08] VITALS: PULSE 79; RESP 18; O2SAT 98
[2024-01-08] MEDS: Albuterol/Iprat 2.5/0.5MG 3 ML AMPUL.NEB INHALE (05:08)
[2024-01-08 05:35] VITALS: RESP 18
[2024-01-08 05:40] VITALS: BP 136/45; PULSE 88; RESP 17; TEMP 36.8; O2SAT 94
[2024-01-08] MEDS: Azithromycin 500 MG TABLET PO (05:50)
[2024-01-08 05:59] VITALS: BP 136/45; PULSE 88; RESP 17; TEMP 36.8; O2SAT 95
== END 2024-01-08 05:59 | disposition home or self-care (01) ==
PROVIDERS: Physician Assistant Medical; Emergency Provider Emergency Medicine
DX: J20.9 Acute bronchitis, unspecified (principal); R06.02 Shortness of breath; I12.9 Hypertensive chronic kidney disease with stage 1 through stage 4 chronic kidney disease, or unspecified chronic kidney disease; N18.9 Chronic kidney disease, unspecified; Z03.818 Encounter for observation for suspected exposure to other biological agents ruled out; R05.9 Cough, unspecified; E78.5 Hyperlipidemia, unspecified; Z79.02 Long term (current) use of antithrombotics/antiplatelets; Z79.899 Other long term (current) drug therapy
CPT/HCPCS: 0241U; 71046; 80048; 80076; 83735; 84484; 85025; 85610; 93005; 94640; 99284; 99285

== ENCOUNTER → 2024-01-08 00:04 | Outpatient (BNV) | payer OTHER, SELFPAY | PROVIDERS: Emergency Provider Emergency Medicine; Visit Provider Internal Medicine Cardiovascular Disease | DX: I45.9 Conduction disorder, unspecified (principal) | CPT/HCPCS: 93010 ==

== ENCOUNTER 2024-01-25 11:22 | Outpatient (REF) | payer OTHER, SELFPAY ==
[2024-01-25 12:06] LABS: MANUAL DIFF FLAG NO
[2024-01-25 12:45] LABS: Basophils Absolute Auto 0.1 X10*3/uL (0.0-0.2); Basophils Percent Auto 1.3 % (0-2); Eosinophils Absolute Auto 0.2 X10*3/uL (0.0-0.4); Eosinophils Percent Auto 2.9 % (0-4); Hematocrit 43.7 % (37.0-47.0); Hemoglobin 13.8 g/dl (12.0-16.0); Imm Gran Abs Auto 0.08 X10*3/uL (0.00-0.03); Lymphocytes Absolute Auto 2.1 X10*3/uL (1.2-4.9); Lymphocytes Percent Auto 25.4 % (20-40); Mean Corpuscular HGB Conc 31.6 g/dl (31.0-35.0); Mean Corpuscular Hemoglobin 30.1 pg (27.0-33.0); Mean Corpuscular Volume 95.4 fL (80.0-98.0); Mean Platelet Volume 11.2 fL (9.4-12.3); Monocytes Absolute Auto 0.5 X10*3/uL (0.1-1.2); Monocytes Percent Auto 6.3 % (2-11); Neutrophils Absolute Auto 5.2 x10*3/uL (2.0-8.3); Neutrophils Percent Auto 63.1 % (45-73); Platelet Count 196 X10*3/uL (160-400); Red Blood Count 4.58 X10*6/uL (4.20-5.50); Red Cell Distribution Width 13.3 % (11.0-16.0); White Blood Count 8.2 X10*3/uL (4.8-10.8)
[2024-01-25 13:08] LABS: Anion Gap 12 (12-20); Blood Urea Nitrogen 23 mg/dL (9-16); Calcium 9.6 mg/dL (8.4-10.2); Carbon Dioxide 25 mmol/L (22-29); Chloride 109 mmol/L (96-108); Estimated Glomerular Filt Rate 46; Glucose Random 85 mg/dL (60-115); Potassium 5.2 mmol/L (3.3-5.1); Sodium 141 mmol/L (135-145)
== END 2024-01-25 11:23 | disposition home or self-care (01) ==
LOC: HO.LAB 11:22
PROVIDERS: PCP Physician Assistant Medical; Visit Provider Nurse Practitioner Family
DX: I12.9 Hypertensive chronic kidney disease with stage 1 through stage 4 chronic kidney disease, or unspecified chronic kidney disease (principal); N18.9 Chronic kidney disease, unspecified; R60.9 Edema, unspecified
CPT/HCPCS: 36415; 80048; 85025; 99212

== ENCOUNTER 2024-01-25 13:32 | Outpatient (AMB) | payer OTHER, SELFPAY ==
[2024-01-25 13:41] VITALS: BP 144/68; PULSE 64; O2SAT 97; BMI 30.2
--- NOTE | 2024-01-25 13:41 | HO.NEPHOV_ITS ---
Vital Signs 01/25/24 13:41 Height 5 ft 4 in Weight 176 lb BMI 30.2 BP 144/68 H Blood Pressure Location Rt brachial Position Sitting Pulse 64 Pulse Source Pulse Oximeter Pulse Oximetry (%) 97 Oxygen Delivery Method Room Air Intake Visit Reasons: [facility] [place] abnormal labs/ Conf Transition Rn Required: No Accompanied by: Self / Same As Patient Allergies gluten [GLUTEN] Allergy (Unknown, Verified 01/25/24 13:42) UNKNOWN mushroom Allergy (Unknown, Verified 01/25/24 13:42) UNKNOWN Medication List - Last Reconciled 01/25/24 by Manpreet Luke MD albuterol sulfate 90 mcg/actuation 2 puffs inhalation Q4-6H PRN albuterol sulfate 90 mcg/actuation 2 puffs inhalation Q6H PRN atorvastatin 20 mg PO DAILY azithromycin 250 mg PO DAILY 4 days benzonatate 100 mg PO BID PRN iyjkdtexpj-ksuaivrofiomq-pwey 50-300-40 mg (Fioricet) 1 cap PO TID PRN cyclobenzaprine 10 mg PO BID PRN levothyroxine 75 mcg PO DAILY meclizine 25 mg PO TID metoprolol succinate ER 100 mg PO DAILY omeprazole 20 mg PO DAILY ondansetron 4 mg PO Q6H oseltamivir (Tamiflu) 75 mg PO BID 5 days ropinirole 0.25 mg PO BID solifenacin (Vesicare) 10 mg PO DAILY spironolactone 25 mg PO DAILY HPI Comments Details: 67 year old female hx of htn, hld, hypothyroidism and CKD is here for follow-up [facility] 2 weeks No new issues [facility] Medical History (Updated 01/09/24 @ 00:00 by Chela Baron) Presence of implantable pulmonary artery pressure and heart rate monitoring system Right knee injury Right shoulder injury Femur fracture, right Femur fracture, left delivery delivered Migraine Restless Kidney disease Heart murmur Overactive bladder Overactive adult syndrome Thyroid disease Hyperlipidemia Hypertension Surgical History History of surgery Social History Alcohol intake: never Substance Use Type: Marijuana Advance Directives Date on File: 09/10/20 Physical Exam Vital Signs: Last Vital Signs Pulse 64 01/25/24 13:41 BP 144/68 H 01/25/24 13:41 Pulse Ox 97 01/25/24 13:41 Oxygen Delivery Method Room Air 01/25/24 13:41 BMI result Body Mass Index 30.2 Const General: comfortable; No acute distress Orientation/consciousness: patient oriented x3 Eyes General: appearance normal, both eyes and all related structures Visual Callahan: normal visual callahan by confrontation Neck Neck: Yes supple and Yes no JVD Resp Effort & Inspection: normal respiratory effort and respiratory effort not decreased Auscultation: rhonchi Cardio Palpation: no palpable S3 and no palpable S4 Heart sounds: no rubs GI Inspection: Yes normal to inspection Palpation (GI): Soft to palpation Percussion: Yes normal to percussion Auscultation: normal bowel sounds General: Yes no CVA tenderness Back/Spine/Pelvis Back: no CVA tenderness Skin General skin exam: no petechiae and no purpura Neuro General: patient oriented x3 and no focal motor deficits Extrem General: No clubbing and No edema Results Reviewed Nephrology Results: Hgb 13.8 g/dl (12.0-16.0) 01/25/24 WBC 8.2 X10*3/uL (4.8-10.8) 01/25/24 Plt Count 196 X10*3/uL (160-400) 01/25/24 Sodium 141 mmol/L (135-145) 01/25/24 Potassium 5.2 mmol/L (3.3-5.1) H 01/25/24 Chloride 109 mmol/L (96-108) H 01/25/24 Carbon Dioxide 25 mmol/L (22-29) 01/25/24 BUN 23 mg/dL (9-16) H 01/25/24 Creatinine 1.17 mg/dL (0.5-1.4) 01/25/24 Calcium 9.6 mg/dL (8.4-10.2) 01/25/24 Assessment & Plan Assessment & Plan (1) Hypertension: Code(s): I10 - Essential (primary) hypertension Category: Medical (2) CKD (chronic kidney disease): Code(s): N18.9 - Chronic kidney disease, unspecified Category: Medical (3) Edema: Code(s): R60.9 - Edema, unspecified Category: Medical Plan From a renal standpoint Lauren is doing well. Renal function is stable at baseline. Blood pressure control. Encouraged to stay on low-sodium diet. Continue with same dose of spironolactone. Will continue monitor renal function closely. Avoid nephrotoxins including NSAIDs. Orders: Orders Basic Metabolic Panel 1 Week N18.9 - Chronic kidney disease, unspecified Coding Level of Care Code Est Pt Level 4 (05317) Diagnoses Hypertension I10 CKD (chronic kidney disease) N18.9 Edema R60.9
== END 2024-01-25 13:57 | disposition home or self-care (01) ==
PROVIDERS: Visit Provider Internal Medicine Hypertension Specialist
DX: I12.9 Hypertensive chronic kidney disease with stage 1 through stage 4 chronic kidney disease, or unspecified chronic kidney disease (principal); N18.9 Chronic kidney disease, unspecified; R60.9 Edema, unspecified
CPT/HCPCS: 99214

== ENCOUNTER 2024-02-03 12:22 | Outpatient (REF) | payer OTHER, SELFPAY ==
[2024-02-03 13:22] LABS: Appearance Urine Clear; Color Urine Yellow; Glucose Urine UA Negative (Negative); Leukocyte Esterase Urine Moderate (2+) (Negative); Nitrite Urine Negative (Negative); Specific Gravity - Urine 1.015 (1.005-1.025); UMIC TRIGGER UA YES; Urine Blood Negative (Negative); Urine Ketones Trace mg/dL (Negative); Urine Protein Negative (Neg-Trace)
[2024-02-03 13:39] LABS: Anion Gap 14 (12-20); Blood Urea Nitrogen 17 mg/dL (9-16); Calcium 9.4 mg/dL (8.4-10.2); Carbon Dioxide 20 mmol/L (22-29); Chloride 110 mmol/L (96-108); Estimated Glomerular Filt Rate 46; Glucose Random 71 mg/dL (60-115); Potassium 3.6 mmol/L (3.3-5.1); Sodium 140 mmol/L (135-145)
[2024-02-03 13:40] LABS: Anion Gap 13 (12-20); Blood Urea Nitrogen 17 mg/dL (9-16); Calcium 9.5 mg/dL (8.4-10.2); Carbon Dioxide 21 mmol/L (22-29); Chloride 110 mmol/L (96-108); Estimated Glomerular Filt Rate 47; Potassium 3.6 mmol/L (3.3-5.1); Sodium 140 mmol/L (135-145)
[2024-02-03 13:42] LABS: Bacteria Urine None Seen (None Seen); Granular Casts Urine Present; RBC Urine 0-2 /HPF (0-2); WBC Urine 21-50 /HPF (0-5)
[2024-02-03 14:16] LABS: Creatinine Urine 142.87 mg/dL; Total Protein Urine Random 14 mg/dL (<12)
== END 2024-02-03 12:23 | disposition home or self-care (01) ==
LOC: HO.LAB 12:22
PROVIDERS: PCP Physician Assistant Medical; Visit Provider Internal Medicine Hypertension Specialist
DX: I12.9 Hypertensive chronic kidney disease with stage 1 through stage 4 chronic kidney disease, or unspecified chronic kidney disease (principal); N18.9 Chronic kidney disease, unspecified; R60.9 Edema, unspecified
CPT/HCPCS: 36415; 80048; 80051; 81001; 82310; 82565; 82570; 84156; 84520

== ENCOUNTER 2024-02-16 00:22 | Emergency (ER) | payer OTHER, SELFPAY ==
--- NOTE | 2024-02-16 | ECG_ITS ---
Test Reason : CHEST PAIN Blood Pressure : / mmHG Vent. Rate : 081 BPM Atrial Rate : 081 BPM P-R Int : 160 ms QRS Dur : 100 ms QT Int : 440 ms P-R-T Axes : 046 027 061 degrees QTc Int : 511 ms Normal sinus rhythm RSR' or QR pattern in V1 suggests right ventricular conduction delay Cannot rule out Anterior infarct , age undetermined Prolonged QT Abnormal ECG When compared with ECG of 08-JAN-2024 00:28, Non-specific change in ST segment in Inferior leads T wave inversion no longer evident in Inferior leads QT has lengthened Referred By: Generic ED Physician Electronically Signed By:LYNDA DENG
--- NOTE | ~2024-02-16 | CT_ITS ---
EXAMINATION: CT ANGIOGRAM CHEST CLINICAL INFORMATION: Reason for Exam elevated D-dimer(312) and chest pain. COMPARISON: Chest x-ray 01/08/2024 TECHNIQUE: Multiple axial images were obtained through the chest after the administration of 65 mL of Omnipaque 350 intravenous contrast. Extensive vascular post-processing including two-dimensional and three-dimensional reformatted images were created and reviewed on an independent workstation. This CT examination was performed using dose optimization techniques as appropriate, variously including the following: *Automated exposure control *Adjustment of mA and/or kV according to patient size (this includes techniques or standardized protocols for targeted exams where dose is matched to indication/reason for exam; i.e. extremities or head) *Use of iterative reconstruction technique DLP: 308 mGy-cm FINDINGS: No filling defects are seen in the main, lobar, or segmental pulmonary arteries to suggest the presence of pulmonary emboli. The aorta is unremarkable. Mild bronchial wall thickening bilaterally. There is a thin-walled cyst in the left lower lobe. A left lower lobe nodule measures 5 mm on image 259/483. Mild bibasilar subsegmental atelectasis. No additional consolidation. No pneumothorax or pleural effusion. The visualized thyroid gland is unremarkable. There are subcentimeter mediastinal lymph nodes within the range of normal variation. Duplicated SVC noted. Cardiac size is within normal limits; no pericardial effusion. Loop recorder lies in the anterior chest wall to the left of midline. Visualized portions of the upper abdomen are within normal limits. Chronic appearing posterior lateral left fourth rib fracture. Degenerative changes are noted in the spine. CT/CT angio chest PE protocol IMPRESSION: 1. No pulmonary embolus identified. 2. Mild bronchial wall thickening, which can be seen with acute or chronic bronchitis. 3. Left lower lobe 5 mm lung nodule. According to the UPDATED 2017 Fleischner Society recommendations, the advised follow-up imaging for solid nodules < 6 mm is: LOW RISK PATIENT: No routine follow-up. HIGH RISK PATIENT: Optional CT at 12 months. Electronically signed by: Juarez Jenkins MD 02/16/2024 04:35 AM EDT
[2024-02-16 00:31] VITALS: BP 179/65; PULSE 81; RESP 16; TEMP 36.8; O2SAT 96; BMI 29.2
[2024-02-16 00:39] VITALS: BP 183/70; PULSE 85; O2SAT 98
--- OUTSIDE RECORDS SUMMARY | 2024-02-16 00:51 | XMS_ITS | Continuity of Care Document ---
Author Organization [facility] ter Address [address] [place] [id number]- Care Team Providers Care Metals Sales Representative Name Role Phone Carlos Rosa Primary Care Physician Encounter [facility] Date(s): 03/07/23 - 03/07/[address] [address]- Encounter Diagnosis Viral syndrome(Final) - 03/07/23 Shortness of breath(Final) - 03/07/23 Discharge Disposition: A-D/C Home Attending Physician: Adam Rosa MD Admitting Physician: Adam Rosa MD Referring Physician: Not on Staff, Referring MD Allergies, Adverse Reactions, Alerts Substance Reaction Severity Status Glutens Active Mushrooms Active Medications acetaminophen-codeine #3 1 tablet, By Mouth, Daily, 0 Refills, Maintenance, 04/19/19 16:29:19 EST Start Date: 04/19/19 Status: Ordered amLODIPine 5 mg oral tablet See Instructions, 7.5 mg By Mouth Daily, Refills 0, Maintenance, 11/18/22 23:24:00 EDT, Instructions Replace Required Details, Partial fill upon patient request if the prescription is for a schedule II opioid drug. Start Date: 11/18/22 Status: Ordered aspirin 81 mg oral tablet 1 tablet = 81 mg, By Mouth, Daily, 0 Refills, Maintenance, 04/19/19 16:29:31 EST Start Date: 04/19/19 Status: Ordered atorvastatin 20 mg oral tablet 1 tablet = 20 mg, By Mouth, Daily, # 30 tablet, 0 Refills, Maintenance, 04/19/19 16:29:06 EST, Tablet Start Date: 04/19/19 Status: Ordered cyclobenzaprine 10 mg oral tablet 10 mg, 1, tablet, By Mouth, 3 times a day, PRN, # 30 tablet, Refills 0, Maintenance, for spasm, 10/30/21 20:57:00 EDT, Partial fill upon patient request if the prescription is for a schedule II opioid drug. Start Date: 10/30/21 Status: Ordered levothyroxine 75 mcg (0.075 mg) oral tablet 1 tablet = 75 mcg, By Mouth, Daily, # 30 tablet, 0 Refills, Maintenance, 12/09/21 10:59:00 EDT, Tablet, Partial fill upon patient request if the prescription is for a schedule II opioid drug. Start Date: 12/09/21 Status: Ordered meclizine 12.5 mg oral tablet 1 tablet = 12.5 mg, By Mouth, 3 times a day, PRN for dizziness, # 30 tablet, 0 Refills, Maintenance, 01/11/23 8:47:00 EDT, Tablet, Partial fill upon patient request if the prescription is for a schedule II opioid drug. Start Date: 01/11/23 Status: Ordered metoprolol 100 mg oral tablet, extended release 100 mg, 1, tablet, By Mouth, Daily, # 30 tablet, Refills 0, Maintenance, 04/19/19 16:30:43 EST Start Date: 04/19/19 Status: Ordered omeprazole 20 mg oral delayed release tablet 1 tablet = 20 mg, By Mouth, Daily, # 30 tablet, 0 Refills, Maintenance, 04/19/19 16:28:30 EST, CR Tablet Start Date: 04/19/19 Status: Ordered ondansetron 8 mg oral tablet, disintegrating 1 tablet = 8 mg, By Mouth, 3 times a day, # 9 tablet, 0 Refills, Maintenance, 11/19/22 19:08:00 EDT, DIS Tablet, [facility] #[id number], Partial fill upon patient request if the prescription is for a schedule II opioid drug., 165, cm, 11/19/22 18... Start Date: 11/19/22 Status: Ordered rOPINIRole 0.25 mg oral tablet 1 tablet = 0.25 mg, By Mouth, 2 times a day, # 90 tablet, 5 Refills, Maintenance, 10/30/21 20:57:00EDT, Tablet, Partial fill upon patient request if the prescription is for a schedule II opioid drug. Start Date: 10/30/21 Status: Ordered spironolactone 25 mg oral tablet 25 mg, 1, tablet, By Mouth, Daily, # 30 tablet, Refills 0, Maintenance, 04/19/19 16:27:45 EST Start Date: 04/19/19 Status: Ordered tolterodine 4 mg oral capsule, extended release 1 capsule = 4 mg, By Mouth, Daily, # 30 capsule, 0 Refills, Maintenance, 04/19/19 16:26:47 EST, CR Capsule Start Date: 04/19/19 Status: Ordered zonisamide 100 mg oral capsule 1 capsule = 100 mg, By Mouth, 2 times a day, # 60 capsule, 0 Refills, Maintenance, 04/19/19 16:28:56 EST, Capsule Start Date: 04/19/19 Status: Ordered Problem List Condition Confirmation Course Effective Dates Status Health St atus Informant Obese class I Confirmed Active Results Radiology Reports * Exam Date Time Procedure Performing Provider Status 03/07/23 12:26 PM Chest 2 Views Frontal and Lat Francheska Drummond; Auth (Verified) Notes: (Chest 2 Views Frontal and Lat) Reason For Exam: sob;Other: RESULT: Chest 2 Views Frontal and Lat Chest 2 Views Frontal and Lat Hx of Present Illness: pt coming from group home for SOB and no taste or smell x2 days. pt took a covid test yesterday that was negative. Pt lungs CTA per EMS, no resp distress. Confirmed covid cases inshelter now.; Reason: Other:; sob; Clinical Question(s): Other:; pna chf COMPARISON: 01/01/2023 FINDINGS: LINES AND TUBES: None. LUNGS AND PLEURA: Clear lungs. Normal pulmonary vascularity. No pleural effusion. No pneumothorax. HEART, MEDIASTINUM AND ALEX: Heart is normal in size. Normal mediastinal and hilar contour. Implanted loop recorder. BONES AND SOFT TISSUES: No acute abnormality. Right humeral bone anchors are unchanged. IMPRESSION: No radiographic evidence of acute cardiopulmonary pathology. WSN: [id number] Ordering Physician: Adam Rosa Dictated By: Jluis Pineda MD Dictated Date/Time: 03/07/23 12:42 p Reviewed By: Jluis Pineda MD Signed By: Jluis Pineda MD Signed Date/Time: 03/07/23 12:42 pm Transcribed By: TAWNY Transcribed Date/Time: 03/07/23 12:42 pm Vital Signs Most recent to oldest [Reference Range]: 1 2 3 Height 163 cm (03/07/23 12:39 PM) 163 cm (03/07/23 10:24 AM) 163 cm (03/07/23 10:02 AM) Weight 82 kg (03/07/23 12:39 PM) 82 kg (03/07/23 10:24 AM) Oxygen Saturation [94-100 %] 100 % (03/07/23 12:39 PM) 100 % (03/07/23 10:02 AM) Pulse Rate [55-90 bpm] 63 bpm (03/07/23 12:39 PM) 62 bpm (03/07/23 10:02 AM) Body Mass Index [18.5-24.99 kg/m2] 30.86 kg/m2 *>HHI* (03/07/23 12:39 PM) Blood Pressure [90-138/55-84 mm Hg] 145/47mm Hg *H* (03/07/23 12:39 PM) 147/65mm Hg *H* (03/07/23 10:02 AM) Respiratory Rate [16-30 br/min] 16 br/min (03/07/23 12:39 PM) 16 br/min (03/07/23 10:02 AM) Temperature [96.8-100.4 DegF] 97.7 DegF (03/07/23 10:02 AM) Mode of Delivery (Oxygen) Room air (03/07/23 12:39 PM) Room air (03/07/23 10:02 AM) Blood pressure sites Arm, right (03/07/23 10:02 AM) Temperature Route Oral (03/07/23 10:02 AM) Dry Weight 82 kg (03/07/23 12:39 PM) 82 kg (03/07/23 10:24 AM) 82 kg (03/07/23 10:02 AM) Dry Weight Obtained Via Patient/family s tated (03/07/23 10:02 AM) Social History Social History Type Response Smoking Status Never (less than 100 in lifetime) entered on: 10/30/21 Sex Patient Care team information Care Team Personnel Name: Halie Andino RN Position: [facility] RN Member Role: Primary Care Nurse Name: Carlos Rosa Position: Reference Physician Member Role: PCP Address: Address: [address] [place] [address]- Name: Arthur Sandoval Position: [facility] Associate Professional Member Role: ED Physician Speeder Operator Address: Address: [address] [place] [address]- Name: Daniel Oconnell RN Position: [facility] ED RN W/OE and Tasks Member Role: Patient Care Provider Name: Adam Rosa MD Position: [facility] Resident Member Role: Admitting Physician Address: Address: [address] [place] [address]- Name: Bozena Grimes Position: [facility] ED [facility] Member Role: Grinder Set Up Operator Thread Care Team Related Persons Name: LYNDA COPE Address: home [address] [address] Name: CHIQUI POLK Address: home [address] [place] [address] Name: ANTHONY GOLD Address: home [address] [place] [address]
--- OUTSIDE RECORDS SUMMARY | 2024-02-16 00:51 | XMS_ITS | Continuity of Care Document ---
Author Organization [facility] ter Address [address] [place] [address]- Care Team Providers Care Stunt Driver Name Role Phone Carlos Rosa Primary Care Physician Encounter [facility] Date(s): 12/08/22 - 12/09/[address] [address]- Encounter Diagnosis Near syncope(Final) - 12/09/22 Discharge Disposition: A-D/C Home Attending Physician: Amalia Bowen DO Admitting Physician: Amalia Bowen DO Referring Physician: Not on Staff, Referring MD [...] opioid drug. Start Date: 12/09/21 Status: Ordered metoprolol 100 mg oral tablet, [...] Refills, Maintenance, 11/19/22 19:08:00 EDT, DIS Tablet, [facility] #[id number], Partial fill upon patient request if the [...] Exam Date Time Procedure Performing Provider Status 12/09/22 2:03 AM Chest 2 Views Frontal and Lat Nolvia Hernandez; Auth (Verified) Notes: (Chest 2 Views Frontal and Lat) Reason For Exam: Chest Pain;Other: RESULT: Chest 2 Views Frontal and Lat Chest 2 Views Frontal and Lat Hx of Present Illness: c o dizziness and lightheadedness, denies CP at this time. Also, feels better now and feels a migraine coming on.; Reason: Other:; Chest Pain; Clinical Question(s): Other: COMPARISON: 11/18/2022. FINDINGS: LINES AND TUBES: None. LUNGS AND PLEURA: Clear lungs. Normal pulmonary vascularity. No pleural effusion. No pneumothorax. HEART, MEDIASTINUM AND ALEX: Heart is normal in size. A loop recorder device overlies the heart. Normal mediastinal and hilar contour. BONES AND SOFT TISSUES: No acute abnormality. There are bone anchors in the right humeral head. IMPRESSION: No acute abnormality. WSN: [id number] Ordering Physician: Amalia Bowen Dictated By: Anne Phelan MD Dictated Date/Time: 12/09/22 8:00 am Reviewed By: Anne Phelan MD Signed By: Anne Phelan MD Signed Date/Time: 12/09/22 8:00 am Transcribed By: TAWNY Transcribed Date/Time: 12/09/22 8:00 am * Exam Date Time Procedure Performing Provider Status 12/09/22 5:16 AM US Doppler Ext Lower Venous Right Ryder Nath; Auth (Verified) Notes: (US Doppler Ext Lower Venous Right) Reason For Exam: Pain in limb;Other: RESULT: US Doppler Ext Lower Venous Right US Doppler Ext Lower Venous Right INDICATION: Right lower extremity pain, concern for thrombus. COMPARISON: 01/06/2018 IMAGING TECHNIQUE: Ultrasound of the veins from the groin through the calf was performed using grayscale, color, and spectral Doppler ultrasound assessing for complete compressibility and normal flowcharacteristics. FINDINGS: Common femoral vein: Patent. No thrombosis. Femoral vein: Patent. No thrombosis. Popliteal vein: Patent. No thrombosis. Gastrocnemius veins: The visualized portions are patent without evidence of thrombosis. Peroneal veins: The visualized portions are patent without evidence of thrombosis. Posterior tibial veins: The visualized portions are patent without evidence of thrombosis. Contralateral common femoral vein: Patent. No thrombosis. OTHER FINDINGS: None. IMPRESSION: No evidence of deep venous thrombosis. I have personally reviewed the images and I agree with this report. WSN: [id number] Ordering Physician: Amalia Bowen Dictated By: Wayne Cali MD Dictated Date/Time: 12/09/22 7:19 am Reviewed By: Estuardo Carson MD Signed By: Estuardo Carson MD Signed Date/Time: 12/09/22 7:24 am Transcribed By: TAWNY Transcribed Date/Time: 12/09/22 5:33 am Vital Signs Most recent to oldest [Reference Range]: 1 2 3 Height 162 cm (12/09/22 12:09 AM) Weight 86.5 kg (12/09/22 12:09 AM) Oxygen Saturation [94-100 %] 99 % (12/09/22 6:09 AM) 100 % (12/09/22 4:39 AM) 100 % (12/09/22 2:39 AM) Pulse Rate [55-90 bpm] 79 bpm (12/09/22 6:09 AM) 81 bpm (12/09/22 4:39 AM) 85 bpm (12/09/22 2:39 AM) Blood Pressure [90-138/55-84 mm Hg] 132/46mm Hg (12/09/22 6:09 AM) 149/53mm Hg *H* (12/09/22 4:39 AM) 149/64mm Hg *H* (12/09/22 2:39 AM) Respiratory Rate [16-30 br/min] 16 br/min (12/09/22 6:09 AM) 20 br/min (12/09/22 4:39 AM) 18 br/min (12/09/22 12:01 AM) Temperature [96.8-100.4 DegF] 97.9 DegF (12/09/22 4:39 AM) 97.7 DegF (12/09/22 2:39 AM) 98.1 DegF (12/09/22 12:01 AM) Mode of Delivery (Oxygen) Room air (12/09/22 6:09 AM) Room air (12/09/22 4:39 AM) Room air (12/09/22 2:39 AM) Blood pressure sites Arm, right (12/09/22 6:09 AM) Arm, left (12/09/22 4:39 AM) Arm, left (12/09/22 2:39 AM) Temperature Route Oral (12/09/22 4:39 AM) Oral (12/09/22 2:39 AM) Oral (12/09/22 12:01 AM) Dry Weight 86.5 kg (12/09/22 12:09 AM) Weight Obtained Via Patient/family state d (12/09/22 12:09 AM) Dry Weight Obtained Via Patient/family s tated (12/09/22 12:09 AM) Social History Social History Type Response Smoking Status Never (less than 100 in lifetime) entered on: 10/30/21 Sex EKG study * Event Display: ECG 12-Lead Authored Date: Please click on pdf link to open report * Event Display: ECG 12-Lead Authored Date: Ventricular Rate: 79 BPM Atrial Rate: 79 BPM P-R Interval: 174 ms QRS Duration: 102 ms Q-T Interval: 420 ms QTC Calculation(Bazett): 481 ms P Huslia: 37 degrees R Huslia: 39 degrees T Huslia: 54 degrees Normal sinus rhythm Incomplete right bundle branch block Borderline ECG When compared with ECG of 19-NOV-2022 16:25, No significant change was found Confirmed by GOGO MARVIN ([id number]) on 12/09/2022 9:00:42 AM [place]: GOGO MARVIN * Event Display: EKG Authored Date: [id number] Note * Amalia Bowen DO: PERFORM, SIGN, VERIFY Event Display: Patient Education Handout Authored Date: [id number] * Amalia Bowen DO: PERFORM Event Display: Patient Education Leaflets Authored Date: [id number] Near-Fainting: Vagal Reaction ?? [id number] Near-Fainting: Vagal Reaction Fainting (syncope) is passing out. It's a temporary loss of consciousness. Near- fainting is feelinglike you are going to faint. But you don't lose consciousness. Fainting and near-fainting can be caused by a vagal reaction (or overstimulation of the vagus nerve). This is something you can't control. It's the body's involuntary response to a physical or emotional stress. This reaction causes a sudden drop in your blood pressure or a slowed heart rate. As a result, not enough blood goes to your brain. Lying down often stops the reaction very quickly. These are symptoms of near-fainting: ??? Feeling lightheaded or like you are going to faint ??? Weak pulse ??? Upset stomach (nausea) ??? Sweating ??? Blurred vision or feeling like your vision is blacking out ??? Trouble breathing ??? Cool and moist skin Causes for near-fainting include: ??? Sudden emotional stress such as fear, pain, panic, or the sight of blood ??? Straining or overexertion, straining while using the toilet, coughing, or sneezing ??? Standing up too quickly or standing up for too long a time ? Some medicines ??? Fluid loss (dehydration) Home care These tips will help you care for yourself at home: ??? Rest today and go back to your normal activities when you feel back to normal. ??? If you get lightheaded or dizzy, lie down right away. Put your legs up so they are higher than your heart. ??? If you are sitting down and feel faint, don't stand up. This may make the feeling worse. ??? Drink plenty of fluids, and don't skip meals. ??? Don't stand for long periods or stay in??hot places. ??? Do what you can to prevent constipation. If you bear down a lot when trying to poop (have a bowel movement), this can trigger a vagal response. Check with your healthcare provider to see if you need tests, such as a tilt- table test, heart rhythm monitoring, or blood tests. Review the medicines you take with your provider and pharmacist. Makesure the symptoms you have are not a side effect of a medicine. ?? Follow-up care Follow up with your healthcare provider, or as advised.?? If you have frequent episodes of near-fainting or vagal reactions, be careful about activities suchas driving. You could harm yourself or others if you were to faint. Don't drive or operate heavy machinery if you are feeling like you may faint. ?? Call 911 Call 911 if any of these occur: ??? Another fainting spell not explained by the common causes listed above ??? Chest, arm, neck, jaw, back, or belly (abdominal) pain ??? Shortness of breath ??? Weakness, tingling, or numbness in 1 side of the face, or 1 arm or leg ??? Slurred speech, confusion, or trouble walking or seeing ??? Seizure ??? Blood in vomit or poop (black or red color) ?? When to get medical care Call your healthcare provider right away if you sometimes have mild lightheadedness, especially when standing up. ?? Last Reviewed Date: 2022 ?? [employer]. All rights reserved. This information is not intended as a substitute for professional medical care. Always follow your healthcare professional's instructions. ?? * Amalia Bowen DO: PERFORM Event Display: Patient Education Leaflets Authored Date: [id number] Dizziness (Uncertain Cause) ?? [id number] Dizziness (Uncertain Cause) Dizziness is a common symptom. It may be described as lightheadedness, spinning, or feeling like you are going to faint. Dizziness can have many causes. Tell the healthcare provider about: ??? All medicines you take, including prescription, [id number], herbs, and supplements ??? Any other symptoms you have ??? Any health problems you are being treated for ??? Any past major health problems you've had, such as a heart attack, balance issues, hearing problems, or blood pressure problems ??? Anything that causes the dizziness to get worse or better Today's exam did not show an exact cause for your dizziness .??Other tests may be needed. Follow upwith your healthcare provider. Home care ??? Dizziness that occurs with sudden standing may be a sign of mild dehydration. Drink extra fluids for the next few days. ??? If you recently started a new medicine, stopped a medicine, or had the dose of a current medicine changed,??talk with the prescribing healthcare provider. Your medicine plan may need adjustment. ??? If dizziness lasts more than a few seconds, sit or lie down until it passes. This may help prevent injury in case you pass out. Get up slowly when you feel better. ??? Don't drive or use power tools or dangerous equipment until you have had no dizziness for at least 48 hours. ?? Follow-up care Follow up with your healthcare provider for further evaluation in the next 7 days, or as advised. ?? When to get medical advice Call your healthcare provider for any of the following: ??? Worsening of symptoms or new symptoms ??? Repeated vomiting ??? Headache ??? Vision or hearing changes Call 911 Call 911, right away if any of these occur: ??? Chest, arm, neck, back, or jaw pain ??? Weakness ofan arm or leg or one side of the face ??? Vomit or stool that's black or red ??? Shortness of breath ??? Feeling that your heart is fluttering or beating fast or hard (palpitations) ??? Passing out or seizure ??? Trouble walking or speaking ?? Last Reviewed Date: 2021 ?? [id number] [employer]. All rights reserved. This information is not intended as a substitute for professional medical care. Always follow your healthcare professional's instructions. ?? Patient Care team information Care Team Personnel Name: Shahnaz Valencia Position: [facility] RN Member Role: Primary Care Nurse Name: Halie Andino RN Position: [facility] RN Member Role: Primary Care Nurse Name: Carlos Rosa Position: Reference Physician Member Role: PCP Address: Address: [address] [place] [id number] Name: *[facility], ED Attending Position: [facility] ED Attendings Patient Name: Britney Valladares RN Position: [facility] ED RN W/OE and Tasks Member Role: Patient Care Provider Name: Penelope Gaitan Position: [facility] ED TA [facility] Member Role: Patient Care Provider Name: Amalia Bowen DO Position: [facility] ED Medicine MD Member Role: Admitting Physician Address: Address: [address] [place] [address]- Care Team Related Persons Name: LYNDA COPE Address: home [address] [address] Name: CHIQUI POLK Address: home [address] [place] [address] Name: ANTHONY GOLD Address: home [address] [place] [address]
--- OUTSIDE RECORDS SUMMARY | 2024-02-16 00:51 | XMS_ITS | Continuity of Care Document ---
Author Organization [facility] ter Address [address] [place] [address]- Care Team Providers Care Commander Police Reserves Name Role Phone Carlos Rosa Primary Care Physician Encounter [facility] R [id number] Date(s): 11/19/22 - 11/19/[address] [address]- Discharge Disposition: A-D/C Home Attending Physician: Ike Arevalo MD Admitting Physician: Ike Arevalo MD Referring Physician: Not on Staff, Referring [...] Refills, Maintenance, 11/19/22 19:08:00 EDT, DIS Tablet, [facility] #[id number], Partial fill upon patient request if the [...] Exam Date Time Procedure Performing Provider Status 11/19/22 5:25 PM Shoulder Min 2 Views Left Manohar Clement eka; Auth (Verified) Notes: (Shoulder Min 2 Views Left) Reason For Exam: with Pain;Trauma RESULT: Shoulder Min 2 Views Left Shoulder Min 2 Views Left, 2 views Reason: Trauma; with Pain; Clinical Question(s): Fracture COMPARISON: None. FINDINGS: No acute fracture or dislocation at the shoulder joint. Moderate glenohumeral joint space narrowing and marginal spurring. Severe degenerative changes of the AC joint. The portion of the clavicle included on the exam is intact. No calcification of the rotator cuff. IMPRESSION: No acute fracture. Chronic osteoarthritic changes. WSN: [id number] Ordering Physician: Ju Tirado Dictated By: Digna Ye MD Dictated Date/Time: 11/19/22 5:34 pm Reviewed By: Digna Ye MD Signed By: Digna Ye MD Signed Date/Time: 11/19/22 5:34 pm Transcribed By: TAWNY Transcribed Date/Time: 11/19/22 5:34 pm Vital Signs Most recent to oldest [Reference Range]: 1 2 3 Height 165 cm (11/19/22 7:24 PM) 165 cm (11/19/22 6:00 PM) 165 cm (11/19/22 5:44 PM) Oxygen Saturation [94-100 %] 98 % (11/19/22 7:24 PM) 96 % (11/19/22 5:44 PM) 100 % (11/19/22 1:47 PM) Pulse Rate [55-90 bpm] 62 bpm (11/19/22 7:24 PM) 64 bpm (11/19/22 5:44 PM) 69 bpm (11/19/22 1:47 PM) Blood Pressure [90-138/55-84 mm Hg] 121/52mm Hg (11/19/22 7:24 PM) 114/51mm Hg (11/19/22 5:44 PM) 155/59mm Hg *H* (11/19/22 1:47 PM) Respiratory Rate [16-30 br/min] 18 br/min (11/19/22 5:44 PM) Temperature [96.8-100.4 DegF] 97.9 DegF (11/19/22 7:24 PM) 97.9 DegF (11/19/22 5:44 PM) 98.2 DegF (11/19/22 1:47 PM) Mode of Delivery (Oxygen) Room air (11/19/22 7:24 PM) Room air (11/19/22 5:44 PM) Room air (11/19/22 1:47 PM) Blood pressure sites Arm, left (11/19/22 1:47 PM) Temperature Route Oral (11/19/22 7:24 PM) Oral (11/19/22 5:44 PM) Oral (11/19/22 1:47 PM) Dry Weight 86.5 kg (11/19/22 7:24 PM) 86.5 kg (11/19/22 6:00 PM) 86.5 kg (11/19/22 5:44 PM) Dry Weight Obtained Via Patient/family s tated (11/19/22 1:47 PM) Social History Social History Type Response Smoking Status Never (less than 100 in lifetime) entered on: 10/30/21 Sex Patient Care team information Care Team Personnel Name: Shahnaz Valencia Position: [facility] RN Member Role: Primary Care Nurse Name: Halie Andino RN Position: [facility] RN Member Role: Primary Care Nurse Name: Carlos Rosa Position: Reference Physician Member Role: PCP Address: Address: [address] [place] [id number] Name: *[facility], ED Attending Position: [facility] ED Attendings Patient Name: Ju Tirado DO Position: [facility] ED Medicine MD Member Role: ED Attending Physician Address: Address: [address] [place] [address]- Name: Anyi Valladares RN Position: [facility] ED RN W/OE and Tasks Member Role: Patient Care Provider Name: Ike Arevalo MD Position: [facility] ED Medicine MD Member Role: Admitting Physician Address: Address: [address] [place] [address] [place] [address]- Care Team Related Persons Name: LYNDA COPE Address: home [address] [place] [address] Name: CHIQUI POLK Address: home [address] [place] [address] Name: ANTHONY GOLD Address: home [address] [place] [address]
--- OUTSIDE RECORDS SUMMARY | 2024-02-16 00:51 | XMS_ITS | Continuity of Care Document ---
Author Organization [facility] ter Address [address] [place] [id number]- Care Team Providers Care Scrapper Name Role Phone Carlos Rosa Primary Care Physician [place] [facility] [place] 11/18/22 - 11/19/[address] [address]- Encounter Diagnosis Chest pain(Final) - 11/18/22 Discharge Disposition: A-D/C Home Attending Physician: Bob Wren MD Admitting Physician: Arnold Mar MD Referring Physician: Not on Staff, Referring [...] Refills, Maintenance, 11/19/22 19:08:00 EDT, DIS Tablet, [id number], Partial fill upon patient request if the [...] Exam Date Time Procedure Performing Provider Status 11/18/22 5:18 PM Chest 2 Views Frontal and Lat Mauro Clement; Jose (Verified) Notes: (Chest 2 Views Frontal and Lat) Reason For Exam: Angina RESULT: Chest 2 Views Frontal and Lat Chest 2 Views Frontal and Lat INDICATION/CLINICAL QUESTION: Hx chest pain. Shortness of breath. TECHNIQUE: Frontal and lateral views of the chest. COMPARISON: 12/11/2021. FINDINGS: LINES AND TUBES: None. LUNGS AND PLEURA: RIGHT CHEST: The right lung is clear and there is no right effusion. LEFT CHEST: The left lung is clear and there is no left effusion. HEART, MEDIASTINUM AND VINCE: The heart is of normal size. The mediastinum and vince are normal. BONES AND SOFT TISSUES: No acute bony abnormality. IMPRESSION: 1. No active disease in chest. WSN: [id number] Ordering Physician: Marisa Luo Dictated By: Estuardo Carson MD Dictated Date/Time: 11/18/22 5:22 pm Reviewed By: Estuardo Carson MD Signed By: Estuardo Carson MD Signed Date/Time: 11/18/22 5:22 pm Transcribed By: TAWNY Transcribed Date/Time: 11/18/22 5:22 pm Vital Signs Most recent to oldest [Reference Range]: 1 2 3 Height 132 cm (11/19/22 7:28 AM) 132 cm (11/19/22 5:29 AM) 132 cm (11/18/22 4:20 PM) Oxygen Saturation [94-100 %] 99 % (11/19/22 9:47 AM) 100 % (11/19/22 7:28 AM) 98 % (11/19/22 5:29 AM) Pulse Rate [55-90 bpm] 90 bpm (11/19/22 9:47 AM) 77 bpm (11/19/22 7:28 AM) 74 bpm (11/19/22 5:29 AM) Blood Pressure [90-138/55-84 mm Hg] 163/47mm Hg *H* (11/19/22 9:47 AM) 144/56mm Hg *H* (11/19/22 7:28 AM) 148/93mm Hg *H* (11/19/22 5:29 AM) Respiratory Rate [16-30 br/min] 18 br/min (11/19/22 9:47 AM) 16 br/min (11/19/22 7:28 AM) 18 br/min (11/19/22 5:29 AM) Temperature [96.8-100.4 DegF] 98.1 DegF (11/19/22 9:47 AM) 97.8 DegF (11/19/22 7:28 AM) 98.3 DegF (11/18/22 4:20 PM) Mode of Delivery (Oxygen) Room air (11/19/22 9:47 AM) Room air (11/19/22 7:28 AM) Room air (11/19/22 5:29 AM) Blood pressure sites Arm, left (11/19/22 9:47 AM) Arm, left (11/19/22 7:28 AM) Arm, left (11/19/22 5:29 AM) Temperature Route Oral (11/19/22 9:47 AM) Oral (11/19/22 7:28 AM) Oral (11/18/22 4:20 PM) Dry Weight 86.5 kg (11/19/22 7:28 AM) 86.5 kg (11/19/22 5:29 AM) 86.5 kg (11/18/22 4:20 PM) Social History Social History Type Response Smoking Status Never (less than 100 in lifetime) entered on: 10/30/21 Sex Admission evaluation note * Noah King: PERFORM Event Display: Admission Note Authored Date: [id number] Patient: ??LUIS COPE ? Age:??67 Years?Sex:??Female?:??1955?? Chief Complaint/Reason for Consultation Chest pain History of Present Illness 67-year-old female with history of hypertension, hyperlipidemia, GERD,??restless leg syndrome, migraines??presents with chest pain.?? The onset??was this afternoon??after she had an argument with rhonda.?? It was nonexertional.?? She describes it as an elephant sitting on her chest.?? In the emergency department her troponin??trended up slightly??so she was admitted to??for ACS rule out. ??Her chest pain recurred and apparently resolved with nitroglycerin. ??Of note she had a similar presentation??about a year ago.?? A nuclear??stress test in??May??2021 was negative. ??At the time of my assessment patient denies any??chest pain, shortness of breath, diaphoresis, nausea, vomiting, presyncope or syncope. Review of Systems CONSTITUTIONAL: ??Denies any fever, chills, changes to weight or fatigue. EYES: Denies any changes to vision, burning or diplopia. HEENT: Denies any ROSAS, nasal d/c, nose bleeds, changes to voice, vertigo, photophobia, hearing changes or dental problems. CV: See HPI PULM: Denies any SOB, wheezing, cough or production of phlegm. ABD: Denies any abdominal pain, N/V/D, heartburn, PRBPR, melena, or changes to bowel habits. : Denies any changes to frequency. ??Denies dysuria, urgency, straining, hematuria, incontinence.? MS: Denies any joint or muscle pain, falls or changes to gait. NEURO: Denies any weakness, numbness, changes to speech confusion or memory loss. SKIN: Denies any rashes or lesions. ?? PSYCH: Denies any depression or anxiety. SIGECAPS negative. FUNCTIONAL: At baseline the patient is able to??ambulate independently Objective Vital Signs?? Temperature: 98.3 DegF (11/18/22 16:20:00) Temperature Route: Oral (11/18/22 16:20:00) Pulse Rate: 88 bpm (11/18/22 22:13:00) Respiratory Rate:??14 br/min??Low (11/18/22 22:13:00) Systolic Blood Pressure:??141 mm Hg??High (11/18/22 22:13:00) Diastolic Blood Pressure: 65 mm Hg (11/18/22 22:13:00) Blood pressure sites: Arm, left (11/18/22 22:13:00) Mean Arterial Pressure: 90 mm Hg (11/18/22 22:13:00) Pulse Pressure: 76 mm Hg (11/18/22 22:13:00) Oxygen Saturation: 97 % (11/18/22 22:13:00) Mode of Delivery (Oxygen): Room air (11/18/22 22:13:00) Early Warning Score: 0 (11/18/22 22:18:33) ? Physical Exam General:??67 year old female??lies in bed comfortably in no acute distress HEENT: NCAT, moist oral mucosa, good dentition, oropharynx without erythema Card: Tenderness to palpation??above the sternum Resp: CTA B/L, no wheezing, rales, ronchi Abdomen: soft and non tender, bowel sounds WNL Extremities: no pitted edema B/L lower extremities Skin: Without rashes or lesions, good turgor Hem/Lymph: without bruising or lymphadenopathy Psych: appropriate affect Neuro: A&OX3, no focal motor deficits Assessment/Plan 67-year-old female with history of hypertension, hyperlipidemia, GERD,??restless leg syndrome, migraines??presents with chest pain. ?? Chest pain (R07.9):??Less likely ACS. EKG nonischemic.??Troponin??indeterminate.??Reproducible. Nonexertional.??Negative stress test October 2021 ?? Plan Serial troponin Telemetry ?? Chronic pain (G89.29):??Continue cyclobenzaprine as needed ?? GERD (gastroesophageal reflux disease) (K21.9):??Continue PPI ?? Hyperlipidemia (E78.5):??Continue statin ?? Hypertension (I10):??Continue??amlodipine, metoprolol, spironolactone ?? Restless leg syndrome (G25.81):??Continue ropinirole ?? VTE Prophylaxis:??Pneumoboots ?VTE Prophylaxis Assessment:??VTE Prophylaxis Ordered ?? Code Status:??DNR, discussed at bedside ?Order Code Status:??Code Status Ordered ?? Ongoing Medical Necessity:??ACS rule out ?? Discharge Planning:??Likely DC??tomorrow ? Total time spent on chart review,??medication reconciliation, direct patient care, documentation: 76 minutes Histories Allergies Allergies ?(Active and Proposed Allergies Only) Mushrooms? (Severity: Unknown severity, Onset: Unknown) Glutens? (Severity: Unknown severity, Onset: Unknown) ? Past Medical History/Problem List Active Problems??(1) Obese class I ? Past Surgical History Right femur repair 2005 Right shoulder repair 2009 ? Social History Used to be a heavy drinker??but she quit 18 years ago ? Family History Mom and dad both had lung cancer ? Medications Home Medications Acetaminophen/Codeine (acetaminophen-codeine #3)?1?tab(s)?By Mouth?Daily Amlodipine (amLODIPine 5 mg oral tablet)?See Instructions?7.5 mg By Mouth Daily Aspirin (aspirin 81 mg oral tablet)?1?tab(s)?81?Milligram?By Mouth?Daily Atorvastatin (atorvastatin 20 mg oral tablet)?1?tab(s)?20?Milligram?By Mouth?Daily Cyclobenzaprine (cyclobenzaprine 10 mg oral tablet)?10?Milligram?1?tablet?By Mouth?3 times a day?as needed?for spasm Levothyroxine (levothyroxine 75 mcg (0.075 mg) oral tablet)?1?tab(s)?75?Microgram?ByMouth?Daily Metoprolol (metoprolol 100 mg oral tablet, extended release)?100?Milligram?1?tablet?By Mouth?Daily Omeprazole (omeprazole 20 mg oral delayed release tablet)?1?tab(s)?20?Milligram?By Mouth?Daily Ropinirole (rOPINIRole 0.25 mg oral tablet)?1?tab(s)?0.25?Milligram?By Mouth?2 times a day Spironolactone (spironolactone 25 mg oral tablet)?25?Milligram?1?tablet?By Mouth?Daily Tolterodine (tolterodine 4 mg oral capsule, extended release)?1?capsule?4?Milligram?By Mouth?Daily zonisamide (zonisamide 100 mg oral capsule)?1?capsule?100?Milligram?By Mouth?2 times a day ? Results Recent Labs BLOOD COUNT & DIFF WBC 9.2 k/mm3 ()?? 11/18/2022 16:35 RBC 4.89 m/mm3 ()?? 11/18/2022 16:35 Hgb 14.4 Gm/dL ()?? 11/18/2022 16:35 Hct 45.2 % ()?? 11/18/2022 16:35 MCV 92.4 femtoliters ()?? 11/18/2022 16:35 MCH 29.4 pg ()?? 11/18/2022 16:35 MCHC 31.9 g/dL (Low)?? 11/18/2022 16:35 Platelet Count 199 k/mm3 ()?? 11/18/2022 16:35 RDW-SD 43.7 femtoliters ()?? 11/18/2022 16:35 MPV 11.2 femtoliters ()?? 11/18/2022 16:35 Nucleated RBC (Automated) 0.0 #/100 WBC'S ()?? 11/18/2022 16:35 Abs. NRBC 0.0 k/mm3 ()?? 11/18/2022 16:35 Abs. Neut 6.4 k/mm3 ()?? 11/18/2022 16:35 Abs. Lymph 1.8 k/mm3 ()?? 11/18/2022 16:35 Abs. [place] 0.6 k/mm3 ()?? 11/18/2022 16:35 Abs. Eo 0.2 k/mm3 ()?? 11/18/2022 16:35 Abs. Baso 0.1 k/mm3 ()?? 11/18/2022 16:35 Neut % 69.9 % ()?? 11/18/2022 16:35 Lymph % 19.5 % ()?? 11/18/2022 16:35 [place] % 6.8 % ()?? 11/18/2022 16:35 Eos % 2.2 % ()?? 11/18/2022 16:35 Baso % 0.9 % ()?? 11/18/2022 16:35 Imm Gran 0.7 % ()?? 11/18/2022 16:35 Abs. Imm Gran 0.1 k/mm3 ()?? 11/18/2022 16:35 ?? CARDIAC Nt-Probnp 81 pg/mL ()?? 11/18/2022 16:35 High Sensitivity Troponin (HSTnT) 19 ng/L (High)?? 11/18/2022 20:25 ?? CHEM GENERAL Sodium 143 mmol/L ()?? 11/18/2022 16:35 Potassium 4.0 mmol/L ()?? 11/18/2022 16:35 Chloride 107 mmol/L ()?? 11/18/2022 16:35 Bicarbonate Level 24 mmol/L ()?? 11/18/2022 16:35 Anion Gap 12 ()?? 11/18/2022 16:35 Glucose Level 126 mg/dL (High)?? 11/18/2022 16:35 BUN 14 mg/dL ()?? 11/18/2022 16:35 Creatinine-Blood 1.0 mg/dL ()?? 11/18/2022 16:35 Estimated GFR Creatinine 61 ML/MIN/1.73 M2 ()?? 11/18/2022 16:35 Calcium 9.0 mg/dL ()?? 11/18/2022 16:35 ?? COAG INR 1.0 ()?? 11/18/2022 22:15 Protime (PT) 10.5 seconds ()?? 11/18/2022 22:15 APTT 25.5 seconds ()?? 11/18/2022 22:15 ?? ENDOCRINE/TUMOR MARKER TSH 3.43 uIU/mL ()?? 11/18/2022 16:35 ?? HEME OTHER Hold Blue Top SPECIMEN DISCARDED AFTER 4 HOURS. ()?? 11/18/2022 16:35 ?? URINE OTHER Est Creatinine Clearance 23.93 mL/min ()?? 11/18/2022 17:48 ?? VIROLOGY COVID-19 by RT-PCR NEGATIVE ()?? 11/18/2022 16:57 ? EKG study * Event Display: ECG 12-Lead Authored Date: Please click on pdf link to open report * Event Display: ECG 12-Lead Authored Date: Ventricular Rate: 98 BPM Atrial Rate: 98 BPM P-R Interval: 184 ms QRS Duration: 102 ms Q-T Interval: 392 ms QTC Calculation(Bazett): 500 ms P [place]: 22 degrees R [place]: 23 degrees T [place]: 50 degrees Normal sinus rhythm Possible Left atrial enlargement Incomplete right bundle branch block Nonspecific ST abnormality Abnormal ECG When compared with ECG of 12-DEC-2021 09:49, No significant change was found Confirmed by DINO REEVES MD ([id number]) on 11/18/2022 7:16:01 PM [place]: DINO REEVES MD Note * Bob Wren MD: PERFORM Event Display: Discharge/Transfer Note Hospital Authored Date: Patient: ??LUIS COPE ? Age:??67 Years?Sex:??Female?:??1955?? Patient Information Discharge Location: [facility] Primary Care Physician: Carlos Rosa Admit Date/Time: 11/18/22 16:11 Discharge Disposition Discharge Disposition: ?? Discharge Diagnosis Chest pain (R07.9) ? _ Discharge Medications Acetaminophen/Codeine (acetaminophen-codeine #3)?1?tab(s)?By Mouth?Daily Amlodipine (amLODIPine 5 mg oral tablet)?See Instructions?7.5 mg By Mouth Daily Aspirin (aspirin 81 mg oral tablet)?1?tab(s)?81?Milligram?By Mouth?Daily Atorvastatin (atorvastatin 20 mg oral tablet)?1?tab(s)?20?Milligram?By Mouth?Daily Cyclobenzaprine (cyclobenzaprine 10 mg oral tablet)?10?Milligram?1?tablet?By Mouth?3 times a day?as needed?for spasm Levothyroxine (levothyroxine 75 mcg (0.075 mg) oral tablet)?1?tab(s)?75?Microgram?ByMouth?Daily Metoprolol (metoprolol 100 mg oral tablet, extended release)?100?Milligram?1?tablet?By Mouth?Daily Omeprazole (omeprazole 20 mg oral delayed release tablet)?1?tab(s)?20?Milligram?By Mouth?Daily Ropinirole (rOPINIRole 0.25 mg oral tablet)?1?tab(s)?0.25?Milligram?By Mouth?2 times a day Spironolactone (spironolactone 25 mg oral tablet)?25?Milligram?1?tablet?By Mouth?Daily Tolterodine (tolterodine 4 mg oral capsule, extended release)?1?capsule?4?Milligram?By Mouth?Daily zonisamide (zonisamide 100 mg oral capsule)?1?capsule?100?Milligram?By Mouth?2 times a day ? Medications Started none Medications Discontinued none Doses Changed none Allergies Allergies ?(Active and Proposed Allergies Only) Mushrooms? (Severity: Unknown severity, Onset: Unknown) Glutens? (Severity: Unknown severity, Onset: Unknown) ? Hospital Course 67-year-old female with past medical history of hypertension hyperlipidemia admitted with chest pain.?? Reproducible and likely musculoskeletal.?? Also element of anxiety in the setting of argument at home.?? Troponin stable.?? Pulmonary embolism unlikely.?? Chest x-ray no acute.?? Also seen by social sciences instructor.?? PCP follow-up was advised ? Today feels fine with no complaint. Having stable vitals. CTA BL, S1, S2 no GMR.Abd SOft, NT, BS+ve, AAO3. no pedal edema ?? Objective . Physical Exam Pending Results Add On Lab Order ordered on 11/18/2022 COVID-19 (Novel Coronavirus), Rapid PCR ordered on 11/18/2022 Patient Education Titles Uncertain Causes of Chest Pain?? Follow-Up Appointments Added Follow Up ?Time Frame ?Comments Carlos Rosa Post Discharge Care Discharge ?after seen by social sciences instructor, ??11/19/22 9:08:00 EDT Discharge Prescriptions ?None, ??11/19/22 9:08:00 EDT Home Health Face to Face ^HomeHealthFTF 25??minutes spent on discharge * Bob Wren MD: PERFORM Event Display: Patient Education Leaflets Authored Date: [id number] Uncertain Causes of Chest Pain ?? [id number] Uncertain Causes of Chest Pain Chest pain can happen for a number of reasons. Sometimes the cause can't be determined. If your??condition does not seem serious, and your pain does not appear to be coming from your heart, your healthcare provider may recommend watching it closely. Sometimes the signs of a serious problem take more time to appear. Many problems not related to your heart can cause chest pain. These include: ??? Musculoskeletal. Costochondritis is an inflammation of the tissues around the ribs that can occur from trauma or overuse injuries, or a strain of the muscles of the chest wall. ??? Respiratory. Pneumonia, collapsed lung (pneumothorax), or inflammation of the lining of the chest and lungs (pleurisy). ??? Gastrointestinal. Esophageal reflux, heartburn, ulcers, or gallbladder disease. ??? Anxiety and panic disorders ??? Nerve compression and inflammation ??? Rare problems such as aortic aneurysm or aortic dissection (a swelling of the large artery coming out of the heart or a tear in the wall of the artery), or pulmonary embolism (a blood clot in the lungs). Home care After your visit, follow these recommendations: ??? Rest today and avoid strenuous activity. ??? Take any prescribed medicine as directed. ??? Be aware of any recurrent chest pain and notice any changes ?? Follow-up care Follow up with your healthcare provider if you don't start to feel better within 24 hours, or as advised. ?? Call 911 Call 911 if any of these occur: ??? A change in the type of pain: if it feels different, becomes more severe, lasts longer, or begins to spread into your shoulder, arm, neck, jaw or back ??? Shortness of breath or increased pain with breathing ??? Weakness, dizziness, or fainting ??? Rapid heartbeat ??? Crushing sensation in your chest ??? Coughing up more than a small amount of blood. ?? When to seek medical advice Call your healthcare provider right away if any of the following occur: ??? Cough with dark coloredsputum (phlegm) or small amount of blood ??? Fever of 100.4??F??(38??C) or higher, or as directed by your healthcare provider ??? Swelling, pain or redness in one leg ?? Last Reviewed Date: 2021 ?? [id number] [employer]. All rights reserved. This information is not intended as a substitute for professional medical care. Always follow your healthcare professional's instructions. ?? Patient Care team information Care Team Personnel Name: Shahnaz Valencia Position: [facility] RN Member Role: Primary Care Nurse Name: Halie Andino RN Position: [facility] RN Member Role: Primary Care Nurse Name: Carlos Rosa Position: Reference Physician Member Role: PCP Address: Address: [address] [place] [address] Name: Jaspal JETER Attending Position: [facility] ED Medicine MD Name: Carolyn Joseph Position: [facility] ED TA [facility] Member Role: Patient Care Provider Name: Jluis Jacobo RN Position: [facility] ED RN W/OE and Tasks Member Role: Patient Care Provider Care Team Related Persons Name: LYNDA COPE Address: home [address] [place] [address] Name: CHIQUI POLK Address: home [address] [place] [address] Name: ANTHONY GOLD Address: home [address] [place] [address]
--- OUTSIDE RECORDS SUMMARY | 2024-02-16 00:51 | XMS_ITS | Continuity of Care Document ---
Author Organization [facility] ter Address [address] [place] [address]- Care Team Providers Care Hospice Office Coordinator Name Role Phone Carlos Rosa Primary Care Physician Encounter [facility] [place](s): 01/11/23 - 01/11/[address] [address]- Encounter Diagnosis Vertigo(Final) - 01/11/23 Discharge Disposition: A-D/C Home Attending Physician: Ayana Fish DO Admitting Physician: Ayana Fish DO Referring Physician: Not on Staff, Referring MD Allergies, Adverse Reactions, Alerts Substance Reaction Severity Status Glutens Active Mushrooms Active Medications Acetaminophen Tablet 650 mg, Tablet, By Mouth, Once, STAT, 01/11/23 7:36:00 EDT, Stop date 01/11/23 7:36:00 EDT Start Date: 01/11/23 Stop Date: 01/11/23 Status: Completed acetaminophen-codeine #3 1 tablet, By Mouth, Daily, [...] Refills, Maintenance, 11/19/22 19:08:00 EDT, DIS Tablet, [id number], Partial fill upon patient request if the [...] Exam Date Time Procedure Performing Provider Status 01/11/23 7:[address] Head/Brain W/O Contrast Pamela Sharma; Auth (Verified) Notes: (CT Head/Brain W/O Contrast) Reason For Exam: Vertigo RESULT: CT Head/Brain W/O Contrast Examination: Noncontrast head CT performed on 01/11/2023. History: Dizziness. Vertigo. Technique and findings: Contiguous 5 mm axial images were obtained from the skull base to the vertex without intravenous contrast. A dose modulated weight-based protocol was used. There are no prior similar studies currently available for direct comparison. The visualized sinuses are free from disease. The ventricular system and subarachnoid spaces are within normal limits. There is no intracranial hemorrhage, mass effect, or midline shift. No intra- or extra-axial fluid collections are identified. The osseous structures are unremarkable. Impression: There is no acute intracranial abnormality. WSN: [id number] Ordering Physician: Andrey Miller Dictated By: Elvira Nguyễn MD Dictated Date/Time: 01/11/23 7:56 am Reviewed By: Elvira Nguyễn MD Signed By: Elvira Nguyễn MD Signed Date/Time: 01/11/23 7:56 am Transcribed By: TAWNY Transcribed Date/Time: 01/11/23 7:55 am Vital Signs Most recent to oldest [Reference Range]: 1 2 3 Height 163 cm (01/11/23 2:06 AM) 163 cm (01/11/23 1:03 AM) Oxygen Saturation [94-100 %] 99 % (01/11/23 8:07 AM) 98 % (01/11/23 6:51 AM) 100 % (01/11/23:27 AM) Pulse Rate [55-90 bpm] 69 bpm (01/11/23 8:07 AM) 72 bpm (01/11/23 6:51 AM) 62 bpm (01/11/23:27 AM) Blood Pressure [90-138/55-84 mm Hg] 149/45mm Hg *H* (01/11/23 8:07 AM) 154/58mm Hg *H* (01/11/23 6:51 AM) 135/47mm Hg (01/11/23 5:27 AM) Respiratory Rate [16-30 br/min] 17 br/min (01/11/23 9:00 AM) Temperature [96.8-100.4 DegF] 97.8 DegF (01/11/23 5:27 AM) 97.9 DegF (01/11/23 3:10 AM) 98.1 DegF (01/11/23 1:03 AM) Mode of Delivery (Oxygen) Room air (01/11/23 8:07 AM) Room air (01/11/23 6:51 AM) Room air (01/11/23 5:27 AM) Blood pressure sites Arm, left (01/11/23 8:07 AM) Arm, left (01/11/23 5:27 AM) Arm, left (01/11/23 3:10 AM) Temperature Route Oral (01/11/23 5:27 AM) Oral (01/11/23 3:10 AM) Oral (01/11/23 1:03 AM) Dry Weight 82 kg (01/11/23 2:06 AM) 82 kg (01/11/23 1:03 AM) Dry Weight Obtained Via Patient/family s tated (01/11/23 1:03 AM) Social History Social History Type Response Smoking Status Never (less than 100 in lifetime) entered on: 10/30/21 Sex EKG study * Event Display: ECG 12-Lead Authored Date: Please click on pdf link to open report * Event Display: ECG 12-Lead Authored Date: Ventricular Rate: 60 BPM Atrial Rate: 60 BPM P-R Interval: 182 ms QRS Duration: 94 ms Q-T Interval: 450 ms QTC Calculation(Bazett): 450 ms P [place]: 34 degrees R [place]: 17 degrees T [place]: 42 degrees Normal sinus rhythm RSR' or QR pattern in V1 suggests right ventricular conduction delay Nonspecific ST abnormality Abnormal ECG When compared with ECG of 01-JAN-2023 11:37, No significant change was found Confirmed by CAMMIE SARABIA ([id number]) on 01/11/2023 8:14:48 AM [place]: CAMMIE SARABIA Patient Care team information Care Team Personnel Name: Halie Andino RN Position: S RN Member Role: Primary Care Nurse Name: Carlos Rosa Position: Reference Physician Member Role: PCP Address: Address: [address] [place] [id number] Name: Ayana Fish DO Position: [facility] Resident Member Role: Admitting Physician Address: Address: [address] [place] [address] Name: Andrey Miller MD Position: [facility] Resident Member Role: ED Resident Address: Address: [address] [place] [address] Name: Shira Williamson Position: [facility] ED RN W/OE and Tasks Member Role: Patient Care Provider Name: Heike Shepherd RN Position: [facility] ED RN W/OE and Tasks Member Role: Patient Care Provider Care Team Related Persons Name: LYNDA COPE Address: home [address] [address] Name: CHIQUI POLK Address: home [address] [place] [address] Name: ANTHONY GOLD Address: home [address] [place] [address]
--- OUTSIDE RECORDS SUMMARY | 2024-02-16 00:51 | XMS_ITS | Continuity of Care Document ---
Author Organization [facility] Address [address] [place] [id number]- Care Team Providers Care Executive Cyber Leader Name Role Phone Not on Staff, PCP Primary Care Physician Unavail able Encounter [facility] [place] Date(s): 12/14/23 - 12/14/[address] [address]- Encounter Diagnosis Scalp hematoma(Final) - 12/14/23 Periorbital ecchymosis of left eye(Final) - 12/14/23 Discharge Disposition: A-D/C Home Attending Physician: Germaine Barlow MD Admitting Physician: Germaine Barlow MD Referring Physician: Not on Staff, Referring [...] opioid drug. Start Date: 12/09/21 Status: Ordered Lidoderm 5% film 1 patch, Topically, Daily, remove patches after 12 hours, # 15 patch, 0 Refills, Maintenance, 03/30/23 14:28:00 EDT, [facility]-[id number], Partial fill upon patient request if the prescription is for a schedule II opioid drug., 1 patch T... Start Date: 03/30/23 Status: Ordered meclizine 12.5 mg oral tablet [...] Refills, Maintenance, 11/19/22 19:08:00 EDT, DIS Tablet, [facility] #[id number], Partial fill upon patient request if the [...] Effective Dates Status Health St atus Informant Severe obesity Confirmed Active Results Radiology Reports * Exam Date Time Procedure Performing Provider Status 12/14/23 8:[address] Maxilloface W/O Contrast Hany Snell; Auth (Verified) Notes: (CT Maxilloface W/O Contrast) Reason For Exam: Trauma RESULT: CT Maxilloface W/O Contrast CT Head/Brain W/O Contrast, CT Maxilloface W/O Contrast INDICATION: Hx of Present Illness: Pt reports a mechanical fall on November 28 presenting to the ED today with worsening bruising and swelling on her L orbital region. Cast present in R forearm. Pt denies any pain; Reason: Trauma; Clinical Question(s): Hematoma TECHNIQUE: Noncontrast head CT using axial technique was reconstructed in axial and coronal planes.Noncontrast spiral CT through the facial bones was formatted in 3 planes. Iterative dose reconstruction was used to optimize scan parameters and image quality. CTDIvol Head: 33.45 mGy, DLP Head: 1213 mGy*cm. COMPARISON: 11/29/2023. FINDINGS: Director Of Community Services View Findings, Lines and Tubes: None. BRAIN AND EXTRA-AXIAL SPACES: No parenchymal hemorrhage, midline shift, or mass effect. Hammond-white matter differentiation is wellpreserved. No acute infarct. Ventricles, sulci, and basilar cisterns are normal. No white matter lesions. No subarachnoid hemorrhage. No subdural or epidural collection. CALVARIUM, SKULL BASE, AND SOFT TISSUES: No fractures or suspicious bony lesions. The paranasal sinuses and mastoid air cells are clear. Visualized orbits and globes are intact. Persistent left frontal hematoma measuring 7 mm in thickness, previously 6 mm. MAXILLOFACIAL: Facial soft tissues: Left frontal hematoma extends to the periorbital region. Nasal bones: No fracture. Orbits and orbital shetty: No fracture of the orbital shetty. No intraorbital hematoma. Maxilla and alveolus: No fracture. Pterygoid plates: No fracture. Visualized parapharyngeal spaces: Symmetric without suspicious or acute abnormality. Zygomatic arches: No fracture. Mandible: No fracture or dislocation. Other: There are degenerative changes in the visualized cervical spine. IMPRESSION: No acute intracranial abnormality or facial bone fracture. Slightly increased left frontal scalp hematoma extending to the periorbital region. WSN: [id number] Ordering Physician: Kasandra Cronin Dictated By: Anne Phelan MD Dictated Date/Time: 12/14/23 9:00 pm Reviewed By: Anne Phelan MD Signed By: Anne Phelan MD Signed Date/Time: 12/14/23 9:00 pm Transcribed By: TAWNY Transcribed Date/Time: 12/14/23 8:54 pm * Exam Date Time Procedure Performing Provider Status 12/14/23 8:[address] Head/Brain W/O Contrast Luisito Snell na; Auth (Verified) Notes: (CT Head/Brain W/O Contrast) Reason For Exam: Trauma RESULT: CT Head/Brain W/O Contrast CT Head/Brain W/O Contrast, CT Maxilloface W/O Contrast INDICATION: Hx of Present Illness: Pt reports a mechanical fall on November 28 presenting to the ED today with worsening bruising and swelling on her L orbital region. Cast present in R forearm. Pt denies any pain; Reason: Trauma; Clinical Question(s): Hematoma TECHNIQUE: Noncontrast head CT using axial technique was reconstructed in axial and coronal planes.Noncontrast spiral CT through the facial bones was formatted in 3 planes. Iterative dose reconstruction was used to optimize scan parameters and image quality. CTDIvol Head: 33.45 mGy, DLP Head: 1213 mGy*cm. COMPARISON: 11/29/2023. FINDINGS: Director Of Community Services View Findings, Lines and Tubes: None. BRAIN AND EXTRA-AXIAL SPACES: No parenchymal hemorrhage, midline shift, or mass effect. Hammond-white matter differentiation is wellpreserved. No acute infarct. Ventricles, sulci, and basilar cisterns are normal. No white matter lesions. No subarachnoid hemorrhage. No subdural or epidural collection. CALVARIUM, SKULL BASE, AND SOFT TISSUES: No fractures or suspicious bony lesions. The paranasal sinuses and mastoid air cells are clear. Visualized orbits and globes are intact. Persistent left frontal hematoma measuring 7 mm in thickness, previously 6 mm. MAXILLOFACIAL: Facial soft tissues: Left frontal hematoma extends to the periorbital region. Nasal bones: No fracture. Orbits and orbital shetty: No fracture of the orbital shetty. No intraorbital hematoma. Maxilla and alveolus: No fracture. Pterygoid plates: No fracture. Visualized parapharyngeal spaces: Symmetric without suspicious or acute abnormality. Zygomatic arches: No fracture. Mandible: No fracture or dislocation. Other: There are degenerative changes in the visualized cervical spine. IMPRESSION: No acute intracranial abnormality or facial bone fracture. Slightly increased left frontal scalp hematoma extending to the periorbital region. WSN: [id number] Ordering Physician: Kasandra Cronin Dictated By: Anne Phelan MD Dictated Date/Time: 12/14/23 9:00 pm Reviewed By: Anne Phelan MD Signed By: Anne Phelan MD Signed Date/Time: 12/14/23 9:00 pm Transcribed By: TAWNY Transcribed Date/Time: 12/14/23 8:54 pm Vital Signs Most recent to oldest [Reference Range]: 1 2 3 Oxygen Saturation [94-100 %] 100 % (12/14/23 10:35 PM) 96 % (12/14/23 10:04 PM) 97 % (12/14/23 7:45 PM) Pulse Rate [55-90 bpm] 62 bpm (12/14/23 10:35 PM) 63 bpm (12/14/23 10:04 PM) 67 bpm (12/14/23 7:45 PM) Blood Pressure [90-138/55-84 mm Hg] 118/40mm Hg (12/14/23 10:35 PM) 121/42mm Hg (12/14/23 10:04 PM) 112/47mm Hg (12/14/23 7:45 PM) Respiratory Rate [16-30 br/min] 15 br/min *L* (12/14/23 10:35 PM) 22 br/min (12/14/23 10:04 PM) 16 br/min (12/14/23 7:45 PM) Temperature [96.8-100.4 DegF] 98.0 DegF (12/14/23 7:45 PM) 98.5 DegF (12/14/23 7:33 PM) 98.5 DegF (12/14/23 6:20 PM) Liters per Minute 0 L/min (12/14/23 6:20 PM) Mode of Delivery (Oxygen) Room air (12/14/23 10:35 PM) Room air (12/14/23 10:04 PM) Room air (12/14/23 7:45 PM) Blood pressure sites Arm, left (12/14/23 10:35 PM) Arm, left (12/14/23 10:04 PM) Arm, left (12/14/23 7:33 PM) Temperature Route Oral (12/14/23 7:45 PM) Oral (12/14/23 7:33 PM) Oral (12/14/23 6:20 PM) Social History Social History Type Response Smoking Status Never (less than 100 in lifetime) entered on: 10/30/21 Sex Female Note * Kasandra Cronin NP: PERFORM Event Display: Patient Education Leaflets Authored Date: [id number] [facility] [place] - If you need a Doctor or Clinic ?? 34 If You Need a Doctor or Clinic ?? Call [facility] PCP Assignment Line to help you find a doctor:?? [phone] ?? Clinics in [place], [place] For a full list of clinics:? [email or web address] ?? [facility]? [address] [phone] [facility]?[address]?[phone] [facility]?[address][phone] [facility]?[address][phone] [facility]?[address] [phone] [facility]?[address][phone] [facility]?[address][phone] [facility]?[address] [phone] [facility]? [address][phone] [facility]?[address][phone] [facility]?[address][phone] [facility]?[address][phone] [facility]?[address][phone] [facility]? [address][phone] [facility]?[address][phone] ? * Kasandra Cronin NP: PERFORM Event Display: Patient Education Leaflets Authored Date: [id number] Eye Bruise (Contusion) ?? [id number] Eye Bruise (Contusion) A bruise (contusion) happens when small blood vessels break open and leaks blood into the nearby area. An eye bruise is often caused by something hitting the eye or nose. You may have pain and swelling around the eye.??The skin may also change color. It may be red at first and then darken. For thisreason, an eye bruise is often called a black eye. If needed, imaging tests, such as an X-ray, may be done to help rule out more serious problems. Pain and swelling should improve in a few days. Bruising may take longer to go away. Home care ??? If you have been prescribed medicines for pain, take them as directed. ??? To help reduce swelling and pain for the first day or two, apply an ice pack to the injured eye for up to 20 minutes.??Do this as often as directed.??You can make an ice pack by filling a plastic bag that sealsat the top with ice cubes, and then wrapping it with a clean, thin towel. Never put an ice pack directly on the skin. Be careful not to put significant pressure on the area. ?? Note about concussion Because the injury was to your face or head, it's possible that you could have a mild brain injury called a concussion. Symptoms of a concussion can show up later. For this reason, you need to watch for concussion symptoms once you???re home.??These include: ??? Headache ??? Nausea or vomiting ??? Dizziness ??? Sensitivity to light or noise ??? Abnormal sleepiness or grogginess ??? Trouble falling asleep ??? Personality changes ??? Vision changes ??? Memory loss ??? Confusion ??? Trouble walking or clumsiness ??? Loss of consciousness (even for a short time) ??? Inability to be awakened ?? Call 911 Call 911 if you have any concussion symptoms, as listed above, over the next hours or days. ?? Follow-up care Follow up with your healthcare provider, or as directed.??If imaging tests were done, they will be reviewed by a healthcare provider. You???ll be told the results and any new findings that may affectyour treatment. ?? When to get medical advice Call your healthcare provider right away if any of these occur:? Pain, bruising, or swelling worsens ??? Vision changes, such as seeing small dots or double vision ??? Loss of vision ??? Inability to move the eye ??? Bleeding on the eyeball surface ??? Sensitivity to light ?? Last Reviewed Date: 2022 ?? [id number] [employer]. All rights reserved. This information is not intended as a substitute for professional medical care. Always follow your healthcare professional's instructions. ?? Patient Care team information Care Team Personnel Name: Not on Staff, PCP Position: [facility] Physician (General Medicine) Member Role: PCP Name: Halie Andino RN Position: [facility] RN Member Role: Primary Care Nurse Care Team Related Persons Name: LYNDA COPE Address: [address] [place] [address] Name: CHIQUI POLK Address: [address] [place] [address] Name: ANTHONY GOLD Address: home [address] [facility] [place] [address]
--- OUTSIDE RECORDS SUMMARY | 2024-02-16 00:51 | XMS_ITS | Continuity of Care Document ---
Author Organization [facility] Address [address] [place] [address]- Care Team Providers Care Cryptologic Linguist Name Role Phone Not on Staff, PCP Primary Care Physician Unavail able Encounter [facility] [place] Date(s): 11/29/23 - 11/29/[address] [address]- Encounter Diagnosis Fall(Final) - 11/29/23 Discharge Disposition: A-D/C Home Attending Physician: Inderjit Orosco MD Admitting Physician: Inderjit Orosco MD Referring Physician: Not on Staff, Referring [...] patch, 0 Refills, Maintenance, 03/30/23 14:28:00 EDT, [facility]-[id number], Partial fill upon patient request if the [...] Refills, Maintenance, 11/19/22 19:08:00 EDT, DIS Tablet, [facility] #[id number], Partial fill upon patient request if the [...] Exam Date Time Procedure Performing Provider Status 11/29/23 8:01 PM Wrist Comp Min 3 Views Right Gena Kim (Verified) Notes: (Wrist Comp Min 3 Views Right) Reason For Exam: Trauma RESULT: Wrist Comp Min 3 Views Right Wrist Comp Min 3 Views Right INDICATION: Right hand and wrist pain after fall. Concern for fracture COMPARISON: None. FINDINGS: No fracture or dislocation. Mild degenerative changes throughout the carpal bones. Normal carpal configuration. Intact radial and ulnar styloid processes. Ulnar negative variant. Normal soft tissues. IMPRESSION: No acute fracture or osseous abnormality. I have personally reviewed the images and I agree with this report. WSN: [id number] Ordering Physician: Arthur uRff Dictated By: Wayne Cali MD Dictated Date/Time: 11/29/23 9:01 pm Reviewed By: Allison Henson MD Signed By: Allison Henson MD Signed Date/Time: 11/29/23 9:06 pm Transcribed By: TAWNY Transcribed Date/Time: 11/29/23 8:49 pm * Exam Date Time Procedure Performing Provider Status 11/29/23 8:[address] Maxilloface W/O Contrast Jesus Pike (Verified) Notes: (CT Maxilloface W/O Contrast) Reason For Exam: Trauma RESULT: CT Maxilloface W/O Contrast CT Head/Brain W/O Contrast, CT Cervical Spine W/O Contrast, CT Maxillofacial W/O Contrast INDICATION: Reason: Trauma; Clinical Question(s): Hematoma TECHNIQUE: Noncontrast head CT using axial technique was reconstructed in axial and coronal planes.Noncontrast spiral CT through the facial bones and cervical spine was formatted in 3 planes. Automatic tube modulation was used for the cervical spine and iterative dose reconstruction was used for the head, face, and cervical spine to optimize scan parameters and image quality. CTDIvol Body: 13.90 mGy, DLP Body: 318 mGy*cm. CTDIvol Head: 33.20 mGy, DLP Head: 1213 mGy*cm. COMPARISON: 01/11/2023 FINDINGS: Flux Plant Operator View Findings, Lines and Tubes: None. BRAIN [...] clear. Visualized orbits and globes are intact. Soft tissue swelling over the left frontal scalp and left periorbital region. MAXILLOFACIAL: Facial soft tissues: Soft tissue swelling and subcutaneous hematoma over the left frontal skull andleft periorbital region. Nasal bones: No fracture. Orbits and orbital shetty: No fracture of the orbital shetty. No intraorbital hematoma. Maxilla and alveolus: No fracture. Pterygoid plates: No fracture. Visualized parapharyngeal spaces: Symmetric without suspicious or acute abnormality. Zygomatic arches: No fracture. Mandible: The portions included on the exam are normal. No fracture or dislocation. CERVICAL SPINE: No fracture. No acute osseous abnormalities. Mild retrolisthesis of C2 on C3 . No locked or perched facet. Severe multilevel degenerative disc space narrowing and end plate irregularity. OTHER BONES: No acute abnormality. CERVICAL SOFT TISSUES AND LUNG APICES: Normal soft tissues. Visualized lung apices are clear. IMPRESSION: No acute abnormality of the head, face, or cervical spine. Soft tissue swelling with subcutaneous hematoma over the left frontal skull and left periorbital region without underlying fracture. WSN: [id number] Ordering Physician: Arthur Ruff Dictated By: Allison Henson MD Dictated Date/Time: 11/29/23 9:00 pm Reviewed By: Allison Henson MD Signed By: Allison Henson MD Signed Date/Time: 11/29/23 9:00 pm Transcribed By: TAWNY Transcribed Date/Time: 11/29/23 8:45 pm * Exam Date Time Procedure Performing Provider Status 11/29/23 8:[address] Cervical Spine W/O Contrast Jesus Wray; Jose (Verified) Notes: (CT Cervical Spine W/O Contrast) Reason For Exam: Neck trauma, dangerous injury mechanism;Other: RESULT: CT Cervical Spine W/O Contrast CT Head/Brain W/O Contrast, CT Cervical Spine W/O Contrast, CT Maxillofacial W/O Contrast INDICATION: Reason: Trauma; Clinical Question(s): Hematoma TECHNIQUE: Noncontrast head CT using axial technique was reconstructed in axial and coronal planes.Noncontrast spiral CT through the facial bones and cervical spine was formatted in 3 planes. Automatic tube modulation was used for the cervical spine and iterative dose reconstruction was used for the head, face, and cervical spine to optimize scan parameters and image quality. CTDIvol Body: 13.90 mGy, DLP Body: 318 mGy*cm. CTDIvol Head: 33.20 mGy, DLP Head: 1213 mGy*cm. COMPARISON: 01/11/2023 FINDINGS: Flux Plant Operator View Findings, Lines and Tubes: None. BRAIN [...] clear. Visualized orbits and globes are intact. Soft tissue swelling over the left frontal scalp and left periorbital region. MAXILLOFACIAL: Facial soft tissues: Soft tissue swelling and subcutaneous hematoma over the left frontal skull andleft periorbital region. Nasal bones: No fracture. Orbits and orbital shetty: No fracture of the orbital shetty. No intraorbital hematoma. Maxilla and alveolus: No fracture. Pterygoid plates: No fracture. Visualized parapharyngeal spaces: Symmetric without suspicious or acute abnormality. Zygomatic arches: No fracture. Mandible: The portions included on the exam are normal. No fracture or dislocation. CERVICAL SPINE: No fracture. No acute osseous abnormalities. Mild retrolisthesis of C2 on C3 . No locked or perched facet. Severe multilevel degenerative disc space narrowing and end plate irregularity. OTHER BONES: No acute abnormality. CERVICAL SOFT TISSUES AND LUNG APICES: Normal soft tissues. Visualized lung apices are clear. IMPRESSION: No acute abnormality of the head, face, or cervical spine. Soft tissue swelling with subcutaneous hematoma over the left frontal skull and left periorbital region without underlying fracture. WSN: [id number] Ordering Physician: Arthur Ruff Dictated By: Allison Henson MD Dictated Date/Time: 11/29/23 9:00 pm Reviewed By: Allison Henson MD Signed By: Allison Henson MD Signed Date/Time: 11/29/23 9:00 pm Transcribed By: TAWNY Transcribed Date/Time: 11/29/23 8:45 pm * Exam Date Time Procedure Performing Provider Status 11/29/23 8:[address] Head/Brain W/O Contrast Jesus Pike; Jose (Verified) Notes: (CT Head/Brain W/O Contrast) Reason For Exam: Trauma RESULT: CT Head/Brain W/O Contrast CT Head/Brain W/O Contrast, CT Cervical Spine W/O Contrast, CT Maxillofacial W/O Contrast INDICATION: Reason: Trauma; Clinical Question(s): Hematoma TECHNIQUE: Noncontrast head CT using axial technique was reconstructed in axial and coronal planes.Noncontrast spiral CT through the facial bones and cervical spine was formatted in 3 planes. Automatic tube modulation was used for the cervical spine and iterative dose reconstruction was used for the head, face, and cervical spine to optimize scan parameters and image quality. CTDIvol Body: 13.90 mGy, DLP Body: 318 mGy*cm. CTDIvol Head: 33.20 mGy, DLP Head: 1213 mGy*cm. COMPARISON: 01/11/2023 FINDINGS: Flux Plant Operator View Findings, Lines and Tubes: None. BRAIN [...] clear. Visualized orbits and globes are intact. Soft tissue swelling over the left frontal scalp and left periorbital region. MAXILLOFACIAL: Facial soft tissues: Soft tissue swelling and subcutaneous hematoma over the left frontal skull andleft periorbital region. Nasal bones: No fracture. Orbits and orbital shetty: No fracture of the orbital shetty. No intraorbital hematoma. Maxilla and alveolus: No fracture. Pterygoid plates: No fracture. Visualized parapharyngeal spaces: Symmetric without suspicious or acute abnormality. Zygomatic arches: No fracture. Mandible: The portions included on the exam are normal. No fracture or dislocation. CERVICAL SPINE: No fracture. No acute osseous abnormalities. Mild retrolisthesis of C2 on C3 . No locked or perched facet. Severe multilevel degenerative disc space narrowing and end plate irregularity. OTHER BONES: No acute abnormality. CERVICAL SOFT TISSUES AND LUNG APICES: Normal soft tissues. Visualized lung apices are clear. IMPRESSION: No acute abnormality of the head, face, or cervical spine. Soft tissue swelling with subcutaneous hematoma over the left frontal skull and left periorbital region without underlying fracture. WSN: [id number] Ordering Physician: Arthur Ruff Dictated By: Allison Henson MD Dictated Date/Time: 11/29/23 9:00 pm Reviewed By: Allison Henson MD Signed By: Allison Henson MD Signed Date/Time: 11/29/23 9:00 pm Transcribed By: TAWNY Transcribed Date/Time: 11/29/23 8:45 pm * Exam Date Time Procedure Performing Provider Status 11/29/23 8:01 PM Hand Min 3 Views Right Piter KimJenifer Ashford ut (Verified) Notes: (Hand Min 3 Views Right) Reason For Exam: Trauma RESULT: Hand Min 3 Views Right Hand Min 3 Views Right, 3 views Reason: Trauma; Clinical Question(s): Fracture COMPARISON: None. FINDINGS: No fractures or bone lesions. Ulnar negative variant is present. Mild osteoarthritis of the triscaphe. Normal soft tissues. IMPRESSION: No fracture. If the patient's symptoms does not resolve, recommend repeat radiograph in 7 days. Ulnar negative variant. WSN: [id number] Ordering Physician: Arthur Ruff Dictated By: Allison Henson MD Dictated Date/Time: 11/29/23 8:45 pm Reviewed By: Allison Henson MD Signed By: Allison Henson MD Signed Date/Time: 11/29/23 8:45 pm Transcribed By: TAWNY Transcribed Date/Time: 11/29/23 8:41 pm Vital Signs Most recent to oldest [Reference Range]: 1 Oxygen Saturation [94-100 %] 96 % (11/29/23 6:59 PM) Pulse Rate [55-90 bpm] 70 bpm (11/29/23 6:59 PM) Blood Pressure [90-138/55-84 mm Hg] 152/ 72mm Hg *H* (11/29/23 6:59 PM) Respiratory Rate [16-30 br/min] 18 br/mi n (11/29/23 6:59 PM) Temperature [96.8-100.4 DegF] 98 DegF (11/29/23 6:59 PM) Mode of Delivery (Oxygen) Room air (11/29/23 6:59 PM) Temperature Route Oral (11/29/23 6:59 PM) Social History Social History Type Response Smoking Status Never (less than 100 in lifetime) entered on: 10/30/21 Sex Female Patient Care team information Care Team Personnel Name: Not on Staff, PCP Position: S Physician (General Medicine) Member Role: PCP Name: Halie Andino RN Position: S RN Member Role: Primary Care Nurse Care Team Related Persons Name: LYNDA COPE Address: home [address] [address] Name: CHIQUI POLK Address: home [address] [place] [address] Name: ANTHONY GOLD Address: [address] [place] [address]
--- OUTSIDE RECORDS SUMMARY | 2024-02-16 00:51 | XMS_ITS | Continuity of Care Document ---
Author Organization [facility] ter Address [address] [place] [address]- Care Team Providers Care Dry Color Mixer Name Role Phone Carlos Rosa Primary Care Physician [place] [facility] [place] - 01/01/[address] [address]- Encounter Diagnosis Viral syndrome(Final) - 01/01/23 Discharge Disposition: A-D/C Home Attending Physician: Gracy Pitts MD Admitting Physician: Gracy Pitts MD Referring Physician: Not on Staff, Referring [...] Refills, Maintenance, 11/19/22 19:08:00 EDT, DIS Tablet, [facility][id number], Partial fill upon patient request if the [...] Exam Date Time Procedure Performing Provider Status 01/01/23 12:19 PM Chest 2 Views Frontal and Lat Beckie De; Auth (Verified) Notes: (Chest 2 Views Frontal and Lat) Reason For Exam: Shortness of Breath, Fever;Other: RESULT: Chest 2 Views Frontal and Lat Chest 2 Views Frontal and Lat Hx of Present Illness: N V, headache, dry cough; Reason: Other:; Shortness of Breath, Fever; Clinical Question(s): Pneumonia COMPARISON: 12/09/2022 FINDINGS: Loop recorder No acute cardiopulmonary process IMPRESSION: No acute abnormality. WSN: [id number] Ordering Physician: Gracy Pitts Dictated By: Carlos Pereira MD Dictated Date/Time: 01/01/23 12:22 p Reviewed By: Carlos Pereira MD Signed By: Carlos Pereira MD Signed Date/Time: 01/01/23 12:22 pm Transcribed By: TAWNY Transcribed Date/Time: 01/01/23 12:22 pm Vital Signs Most recent to oldest [Reference Range]: 1 2 Height 163 cm (01/01/23 12:02 PM) 163 cm (01/01/23 9:50 AM) Weight 82 kg (01/01/23 12:02 PM) 82 kg (01/01/23 9:50 AM) Oxygen Saturation [94-100 %] 100 % (01/01/23 3:17 PM) 98 % (01/01/23 9:50 AM) Pulse Rate [55-90 bpm] 67 bpm (01/01/23 3:17 PM) 87 bpm (01/01/23 9:50 AM) Body Mass Index [18.5-24.99 kg/m2] 30.86 kg/m2 *>HHI* (01/01/23 9:50 AM) Blood Pressure [90-138/55-84 mm Hg] 130/ 60mm Hg (01/01/23 3:17 PM) 147/58mm Hg *H* (01/01/23 9:50 AM) Respiratory Rate [16-30 br/min] 18 br/mi n (01/01/23 3:17 PM) 18 br/min (01/01/23 9:50 AM) Temperature [96.8-100.4 DegF] 97.5 DegF (01/01/23 3:17 PM) 97.8 DegF (01/01/23 9:50 AM) Mode of Delivery (Oxygen) Room air (01/01/23 3:17 PM) Room air (01/01/23 9:50 AM) Blood pressure sites Arm, right (01/01/23 3:17 PM) Arm, right (01/01/23 9:50 AM) Temperature Route Oral (01/01/23 3:17 PM) Oral (01/01/23 9:50 AM) Dry Weight 82 kg (01/01/23 12:02 PM) 82 kg (01/01/23 9:50 AM) Weight Obtained Via Patient/family state d (01/01/23 9:50 AM) Dry Weight Obtained Via Patient/family s tated (01/01/23 9:50 AM) Social History Social History Type Response Smoking Status Never (less than 100 in lifetime) entered on: 10/30/21 Sex Note * Cornelia Morris NP: PERFORM Event Display: Patient Education Leaflets Authored Date: [id number] Viral Syndrome (Adult) ?? [id number] Viral Syndrome (Adult) A viral illness may cause many symptoms such as fever. Other symptoms depend on the part of the body that the virus affects. If it settles in your nose, throat, and lungs, it may cause cough, sore throat, congestion, runny nose, headache, earache and other ear symptoms, or shortness of breath. If it settles in your stomach and intestinal tract, it may cause nausea, vomiting, cramping, and diarrhea. Sometimes it causes generalized symptoms like aching all over, feeling tired, loss of energy, or loss of appetite. A viral illness often lasts anywhere from a few days to a few weeks. But sometimes it lasts longer.In some cases, a more serious infection can look like a viral syndrome in the first few days of theillness. You may need another exam and additional tests to know the difference. Watch for the warning signs listed below for when to get medical advice. Home care Follow these guidelines for taking care of yourself at home: ??? If symptoms are severe, rest at home for the first 2 to 3 days. ??? Stay away from cigarette smoke - both your smoke and the smoke from others. ??? You may use scky-thq-xvptowk??acetaminophen or ibuprofen for fever, muscle aching, and headache, unless another medicine was prescribed for this. Antibiotics aren't used to treat viral infections. If you have chronic liver or kidney disease or ever had a stomach ulcer or gastrointestinal bleeding, talk with your healthcare provider before using these medicines. No one who is younger than 18 and ill with a fever should take aspirin. It may cause severe disease or . ??? Your appetite may be poor, so a light diet is fine. Prevent dehydration by drinking 8 to 12, 8-ounce glassesof fluids each day. This may include water; orange juice; lemonade; apple, grape, and cranberry juice; clear fruit drinks; electrolyte replacement and sports drinks; and decaffeinated teas and coffee. If you've been diagnosed with a kidney disease, ask your healthcare provider how much and what types of fluids you should drink to prevent dehydration. If you have kidney disease, drinking too much fluid can cause it build up in your body and be dangerous to your health. ??? Ewfm-rfo-uxkinth remedies won't shorten the length of the illness. But they may be helpful for symptoms such as cough, sore throat, nasal and sinus congestion, or diarrhea. Don't use decongestants if you have high blood pressure. ?? Follow-up care Follow up with your healthcare provider if you don't get better over the next week. ?? Call 911 Call 911 if any of these occur: ??? Convulsion ??? Feeling weak, dizzy, or like you are going to faint ??? Chest pain, or more than mild shortness of breath ?? When to get medical advice Call your healthcare provider right away if any of these occur: ??? Cough with lots of colored sputum (mucus) or blood in your sputum ??? Chest pain, shortness of breath, wheezing, or trouble breathing ??? Severe headache; face, neck, or ear pain ??? Severe, constant pain in the lower right side ofyour belly (abdominal) ??? Continued vomiting (can???t keep liquids down) ??? Frequent diarrhea (more than 5 times a day), or blood (red or black color) or mucus in diarrhea ??? Feeling weak, dizzy, or like you are going to faint ??? Extreme thirst ??? Fever of 100.4??F (38??C) or higher, or as directed by your provider ?? Last Reviewed Date: 2021 ?? [id number] [employer]. All rights reserved. This information is not intended as a substitute for professional medical care. Always follow your healthcare professional's instructions. ?? Patient Care team information Care Team Personnel Name: Halie Andino RN Position: [facility] RN Member Role: Primary Care Nurse Name: Carlos Rosa Position: Reference Physician Member Role: PCP Address: Address: [address] [place] [address]- Name: Cornelia Morris NP Position: [facility] Associate Professional Member Role: ED Physician Properties Supervisor Address: Address: [address] [place] [address]- Name: Gracy Pitts MD Position: [facility] ED Medicine MD Member Role: Admitting Physician Address: Address: [address] [place] [address] [place] [address]- Name: Boris Joshi RN Position: [facility] ED RN W/OE and Tasks Member Role: Patient Care Provider Care Team Related Persons Name: LYNDA COPE Address: home [address] [place] [address] Name: CHIQUI POLK Address: home [address] [place] [address] Name: ANTHONY GOLD Address: home [address] [place] [address]
--- OUTSIDE RECORDS SUMMARY | 2024-02-16 00:51 | XMS_ITS | Continuity of Care Document ---
Author Organization [facility] ter Address [address] [place] [address]- Care Team Providers Care Naturopath Name Role Phone Carlos Rosa Primary Care Physician Encounter [facility] [place] Date(s): 03/30/23 - 03/30/[address] [address]- Encounter Diagnosis Acute right lumbar radiculopathy(Final) - 03/30/23 Discharge Disposition: A-D/C Home Attending Physician: Melchor Bingham DO Admitting Physician: Melchor Bingham DO Referring Physician: Not on Staff, Referring [...] patch, 0 Refills, Maintenance, 03/30/23 14:28:00 EDT, [id number], Partial fill upon patient request if the [...] 16:30:43 EST Start Date: 04/19/19 Status: Ordered MorPHINE Immediate Release Tablet 15 mg, Tablet, By Mouth, Once, Routine, 03/30/23 12:00:00 EDT, Stop date 03/30/23 12:00:00 EDT Start Date: 03/30/23 Stop Date: 03/30/23 Status: Completed omeprazole 20 mg oral delayed release tablet 1 tablet = 20 mg, By Mouth, Daily, # 30 tablet, 0 Refills, Maintenance, 04/19/19 16:28:30 EST, CR Tablet Start Date: 04/19/19 Status: Ordered ondansetron 8 mg oral tablet, disintegrating 1 tablet = 8 mg, By Mouth, 3 times a day, # 9 tablet, 0 Refills, Maintenance, 11/19/22 19:08:00 EDT, DIS Tablet, [facility] #[id number], Partial fill upon patient request if the [...] CR Capsule Start Date: 04/19/19 Status: Ordered Tylenol 325 mg oral tablet 650 mg, 2, tablet, By Mouth, Every 6 hours, PRN, # 50 tablet, Refills 0, Tot. Refills 0, Acute 04/06/23 8:00:00 EDT, for pain, 03/30/23 14:27:00 EDT, Route to Pharmacy Electronically, [id number], Partial fill upon patient reque... Start Date: 03/30/23 Stop Date: 04/06/23 Status: Ordered zonisamide 100 mg oral capsule 1 capsule = 100 mg, By Mouth, 2 times a day, # 60 capsule, 0 Refills, Maintenance, 04/19/19 16:28:56 EST, Capsule Start Date: 04/19/19 Status: Ordered Results Radiology Reports * Exam Date Time Procedure Performing Provider Status 03/30/23 12:[address] Lumbar Spine W/O Contrast Leah Betancourt; Modified Notes: (CT Lumbar Spine W/O Contrast) Reason For Exam: Spine fracture, lumbar, traumatic;Other: RESULT: CT Lumbar Spine W/O Contrast CT Lumbar Spine W/O Contrast Hx of Present Illness: Pt is [facility], was seen here yesterday for same thing, then walked out. Pt reports ongoing RLE pain with no recent injury or trauma; Reason: Other:; Spine fracture, lumbar, traumatic; Clinical Question(s): Fracture Dislocation; Order Comment: CLINICAL QUESTION: Fracture/Dislocation TECHNIQUE: Thin section axial images were acquired through the lumbar spine. Bone and soft tissue algorithms were reconstructed along with coronal and sagittal reformats. Weight-based protocol using automatic tube modulation was used to optimize exposure parameters. CTDIvol Body: 35.10 mGy, DLP Body: 1100 mGy*cm. COMPARISON: None FINDINGS: Utility Assembler View Findings, Lines and Tubes: None. Spine: No fractures or bone lesion. There is mild anterolisthesis of L3 on L4 and L4 on L5 level. There is disc degenerative disease atL4-5 and L5-S1. There are multiple areas of lucency throughout the osseous structures. Soft tissues: No acute abnormality in the paravertebral soft tissues. Visualized aorta and kidneys appear unremarkable. DETAILED FINDINGS BY LEVEL: L1-L2: No central canal stenosis. Mild bilateral neural foraminal narrowing. L2-L3: No central canal stenosis. No neural foraminal narrowing. L3-L4: Diffuse disc bulge. Moderate central canal stenosis. Moderate bilateral neural foraminal narrowing. L4-L5: Mild central canal stenosis. Moderate right neural foraminal narrowing. L5-S1: No central canal stenosis. Moderate bilateral neural foraminal narrowing. IMPRESSION: No compression fracture or listhesis. Severe disc degenerative disease resulting in central canal stenosis and neural foraminal narrowing as detailed above. WSN: [id number] Ordering Physician: Melchor Bingham Dictated By: Allison Henson MD Dictated Date/Time: 03/30/23 1:20 pm Reviewed By: Allison Henson MD Signed By: Allison Henson MD Signed Date/Time: 03/30/23 1:20 pm Transcribed By: TAWNY Transcribed Date/Time: 03/30/23 1:16 pm ADDENDUM: CT Lumbar Spine W/O Contrast Areas of lucency within the visualized osseous structures could be related to osteopenia versus multiple myeloma. WSN: [id number] Ordering Physician: Melchor Bingham Dictated By: Allison Henson MD Dictated Date/Time: 03/30/23 1:29 pm Reviewed By: Allison Henson MD Signed By: Allison Henson MD Signed Date/Time: 03/30/23 1:29 pm Transcribed By: TAWNY Transcribed Date/Time: 03/30/23 1:29 pm * Exam Date Time Procedure Performing Provider Status 03/30/23 12:25 PM US Doppler Ext Lower Venous Right Asher Catherine; Auth (Verified) Notes: (US Doppler Ext Lower Venous Right) Reason For Exam: Pain in limb;Other: RESULT: US Doppler Ext Lower Venous Right US Doppler Ext Lower Venous Right Hx of Present Illness: [facility] the [facility], was seen here yesterday for same thing, then walked out. Pt reports ongoing RLE pain with no recent injury or trauma; Reason: Other:; Pain in limb; Clinical Question(s): Thrombus COMPARISON: Ultrasound Doppler of the right lower extremity 12/09/2022. IMAGING TECHNIQUE: Ultrasound of the veins from [...] IMPRESSION: No evidence of deep venous thrombosis. WSN: [id number] Ordering Physician: Melchor Bingham Dictated By: Carlos Marroquin MD Dictated Date/Time: 03/30/23 1:02 pm Reviewed By: Carlos Marroquin MD Signed By: Carlos Marroquin MD Signed Date/Time: 03/30/23 1:02 pm Transcribed By: TAWNY Transcribed Date/Time: 03/30/23 1:00 pm Vital Signs Most recent to oldest [Reference Range]: 1 2 3 Height 163 cm (03/30/23 4:03 PM) 163 cm (03/30/23 12:54 PM) 163 cm (03/30/23 11:37 AM) Weight 73 kg (03/30/23 4:03 PM) 73 kg (03/30/23 12:54 PM) 73 kg (03/30/23 11:37 AM) Oxygen Saturation [94-100 %] 99 % (03/30/23 4:03 PM) 98 % (03/30/23 12:54 PM) 100 % (03/30/23 9:10 AM) Pulse Rate [55-90 bpm] 94 bpm *H* (03/30/23 4:03 PM) 86 bpm (03/30/23 12:54 PM) 67 bpm (03/30/23 9:10 AM) Body Mass Index [18.5-24.99 kg/m2] 27.48 kg/m2 *H* (03/30/23 12:54 PM) 27.48 kg/m2 *H* (03/30/23 9:10 AM) Blood Pressure [90-138/55-84 mm Hg] 133/79mm Hg (03/30/23 4:03 PM) 147/56mm Hg *H* (03/30/23 12:54 PM) 146/55mm Hg *H* (03/30/23 9:10 AM) Respiratory Rate [16-30 br/min] 20 br/min (03/30/23 4:03 PM) 19 br/min (03/30/23 12:54 PM) 20 br/min (03/30/23 11:28 AM) Temperature [96.8-100.4 DegF] 98.2 DegF (03/30/23 12:54 PM) 97.9 DegF (03/30/23 9:10 AM) Mode of Delivery (Oxygen) Room air (03/30/23 4:03 PM) Room air (03/30/23 12:54 PM) Room air (03/30/23 9:10 AM) Blood pressure sites Arm, right (03/30/23 4:03 PM) Arm, right (03/30/23 9:10 AM) Temperature Route Oral (03/30/23 12:54 PM) Oral (03/30/23 9:10 AM) Dry Weight 73 kg (03/30/23 4:03 PM) 73 kg (03/30/23 12:54 PM) 73 kg (03/30/23 11:37 AM) Weight Obtained Via Patient/family state d (03/30/23 9:10 AM) Dry Weight Obtained Via Patient/family s tated (03/30/23 9:10 AM) Social History Social History Type Response Smoking Status Never (less than 100 in lifetime) entered on: 10/30/21 Sex Note * Lisset Louie: PERFORM, SIGN, VERIFY Event Display: Patient Education Handout Authored Date: [id number] * Lisset Louie: PERFORM Event Display: Patient Education Leaflets Authored Date: [id number] Physical Therapy Referral ?? 250 ?? This page is FOR PRESCRIBERS Only, ? DO NOT GIVE TO THE PATIENT? Physical Therapy Referral Program for Management of Pain In an effort to reduce narcotic use, some of our ED patients will benefit from a direct referral torehab care.?? [facility] will see INSURED patients and has a system in place to avoid sending follow up paperwork to the ED prescribers.? Note: Non-[facility] physical therapy services will probably NOT be able to handle ED generated PT referrals. ?? Patients should still follow up with their PCP as soon as possible regarding their ongoing care. Inform patients that [facility] will discuss insurance when they call.?? Some insurance plans limit the amount of PT a patient can receive each year. ?? Complete the FIRST PAGE of the patient???s referral sheet. Lime or write in diagnosis Modify the timing for treatment, if needed List any major precautions (i.e.?? Non-weight bearing limb), if needed Sign, date and print your name at the bottom ? Physical Therapy Referral Form Patient Instructions: You are being referred to physical therapy.?? This form is your referral and MUST be brought to your appointment. You need to call to set up your appointment. ?? This form can be used at any [facility] location.?? A list of locations is attached.?? 1)?? DIAGNOSIS/ICD-10 ([place]) Cervicalgia: M54.2 ? Strain of muscle, fascia and tendon at neck level: S16.1XXD? Radiculopathy, cervical region: M54.12? Mid back pain: M54.9 ? Low back pain:?? M54.5 Strain of muscle, fascia and tendon of lower back: S39.012D Radiculopathy, lumbosacral region: M54.17 Other:? 2)? [? ]? Evaluate and Treat 2 Times/Week for 4 weeks as needed [? ]?Other: 3)? [? ]? No Precautions [? ]?Precautions: ?? I hereby certify these services as medically necessary for the patient???s plan of care. Physician???s Signature Date Physician Name (printed)? Locations You can call any location below.?? Tell them you were seen in a [facility] Emergency Department and have a referral form.?? Remember to bring your referral form with you to the appointment. DARIANA Fernandes [id number]? [place] [address], [address]? [address] ? [place] [address]? [place] [address]? [address] ? [place] [address]? [place] [address] ? [place] [address]? [facility] [address] ? * Lisset Louie: PERFORM Event Display: Patient Education Leaflets Authored Date: [id number] Sciatica ?? [id number] Sciatica Sciatica is a condition that causes pain in the low back that spreads down into the buttock, hip, and leg. Sometimes the leg pain can happen without any back pain. Sciatica happens when a spinal nerve is irritated or has pressure put on it as it comes out of the spinal canal in the low back. This most often happens when a bulge or rupture of a nearby spinal disk presses on the nerve. Sciatica canalso be caused by a narrowing of the spinal canal (spinal stenosis) or spasm of the muscle in the buttocks that the sciatic nerve passes through (piriformis muscle). Sciatica may also be called lumbar radiculopathy. Sciatica may start after a sudden twisting or bending force, such as in a car accident. Or it can happen after a simple awkward movement. In either case, muscle spasm often also happens. Muscle spasmmakes the pain worse. A healthcare provider makes a diagnosis of sciatica from your symptoms and a physical exam. Unless you had an injury from a car accident or fall, you usually won???t have X-rays taken at this time. This is because the nerves and disks in your back can???t be seen on an X-ray. If the provider suspects a compressed nerve based on your history or exam, you'll need to schedule an MRI scan. Nerve conductions studies and electromyography are nerve tests that can also help find the cause of nerve pain. Signs of a compressed nerve include loss of strength or reflexes in a leg. Most sciatica gets better with medicine, exercise, and physical therapy. If your symptoms continue after medical treatment, you may need surgery or shots (injections) to your low back. This will depend on how severe your symptoms are. Home care Follow these tips when caring for yourself at home: ??? As soon as possible, start sitting up or walking. This will help you prevent problems that come from staying in bed for long periods. ??? When in bed, try to find a position that is comfortable. A firm mattress is best. Try lying flat on your back with pillows under your knees. You can also try lying on your side with your knees bent up toward your chest and a pillow between your knees. ??? Don't sit for long periods. This puts more stresson your low back than standing or walking. ??? Use heat from a hot shower, hot bath, or heating padto help ease pain. Massage can also help. You can also try using an ice pack. You can make your ownice pack by putting ice cubes in a plastic bag that seals at the top. Wrap the bag in a thin towel.Try both heat and cold to see which works best. Use the method that feels best for 20 minutes several times a day. ??? You may use acetaminophen or ibuprofen to ease pain, unless another pain medicine was prescribed. Note: If you have chronic liver or kidney disease, talk with your healthcare provider before taking these medicines. Also, talk with your provider if you???ve had a stomach ulcer or digestive tract bleeding. ??? Use safe lifting methods. Don???t lift anything heavier than advised until all of the pain is gone. ?? Follow-up care Follow up with your healthcare provider, or as advised. You may need physical therapy or more tests. If X-rays were taken, a radiologist will look at them. You'll be told of any new findings that may affect your care. ?? When to get medical care Call your healthcare provider right away??if any of these occur: ??? Pain gets worse even after taking prescribed medicine ??? Weakness or numbness in 1 or both legs or hips ??? Numbness in your groin or genital area ??? You can???t control your bowel or bladder ??? Fever 100.4??F (38??C) or higher, or as advised by your provider ??? Redness or swelling over your back or spine? Last Reviewed Date: 2021 ?? [id number] [employer]. All rights reserved. This information is not intended as a substitute for professional medical care. Always follow your healthcare professional's instructions. ?? Patient Care team information Care Team Personnel Name: Halie Andino RN Position: [facility] RN Member Role: Primary Care Nurse Name: Carlos Rosa Position: Reference Physician Member Role: PCP Address: Address: [address] [place] [address]- Name: Melchor Bingham DO Position: [facility] ED Medicine MD Member Role: Admitting Physician Address: Address: [address] [place] [address]- Name: Carlos Torres RN Position: [facility] ED RN W/OE and Tasks Member Role: Patient Care Provider Name: Kasandra Pulido Position: [facility] ED TA [facility] Member Role: [employer] Rep Name: Lisset Louie Position: [facility] Associate Professional Member Role: ED Physician Pensionholder Information Clerk Address: Address: [address] [place] [address]- Care Team Related Persons Name: LYNDA COPE Address: home [address] [address] Name: CHIQUI POLK Address: home [address] [place] [address] Name: ANTHONY GOLD Address: home [address] [place] [address]
--- OUTSIDE RECORDS SUMMARY | 2024-02-16 00:51 | XMS_ITS | Continuity of Care Document ---
Author Organization [facility] ter Address [address] [place] [id number]- Care Team Providers Care Mosaic Worker Name Role Phone Carlos Rosa Primary Care Physician Encounter [facility] Date(s): 06/12/23 - 06/12/[address] [address]- Discharge Disposition: A-D/C Home Attending Physician: Ike [...] patch, 0 Refills, Maintenance, 03/30/23 14:28:00 EDT, [id number], Partial fill upon patient request if the [...] Refills, Maintenance, 11/19/22 19:08:00 EDT, DIS Tablet, [id number], Partial fill upon patient request if the [...] Exam Date Time Procedure Performing Provider Status 06/12/23 5:12 PM US Doppler Ext Lower Venous Bilat [place]; Auth (Verified) Notes: (US Doppler Ext Lower Venous Bilat) Reason For Exam: Pain in limb;Other: RESULT: US Doppler Ext Lower Venous Bilat US Doppler Ext Lower Venous Bilat Hx of Present Illness: : pt with edema of lower extrem x 1 wk denies cough or sob; Reason: Other:; Pain in limb; Clinical Question(s): Thrombosis COMPARISON: Right lower extremity 03/30/2023. IMAGING TECHNIQUE: Ultrasound of the veins from the groin through the calf was performed using grayscale, color, and spectral Doppler ultrasound assessing for complete compressibility and normal flowcharacteristics. FINDINGS: RIGHT LOWER EXTREMITY: Common femoral vein: Patent. No thrombosis. Femoral vein: Patent. No thrombosis. Popliteal vein: Patent. No thrombosis. Gastrocnemius veins: The visualized portions are patent without evidence of thrombosis. Peroneal veins: The visualized portions are patent without evidence of thrombosis. Posterior tibial veins: The visualized portions are patent without evidence of thrombosis. LEFT LOWER EXTREMITY: Common femoral vein: Patent. No thrombosis. Femoral vein: Patent. No thrombosis. Popliteal vein: Patent. No thrombosis. Gastrocnemius veins: The visualized portions are patent without evidence of thrombosis. Peroneal veins: The visualized portions are patent without evidence of thrombosis. Posterior tibial veins: The visualized portions are patent without evidence of thrombosis. OTHER FINDINGS: None. IMPRESSION: No evidence of deep venous thrombosis. WSN: [id number] Ordering Physician: Ike Arevalo MD Dictated By: Jluis Calderon MD Dictated Date/Time: 06/12/23 5:24 pm Reviewed By: Jluis Calderon MD Signed By: Jluis Calderon MD Signed Date/Time: 06/12/23 5:24 pm Transcribed By: TAWNY Transcribed Date/Time: 06/12/23 5:22 pm Vital Signs Most recent to oldest [Reference Range]: 1 2 3 Oxygen Saturation [94-100 %] 100 % (06/12/23 5:54 PM) 98 % (06/12/23 4:45 PM) 96 % (06/12/23 1:49 PM) Pulse Rate [55-90 bpm] 81 bpm (06/12/23 5:54 PM) 76 bpm (06/12/23 4:45 PM) 75 bpm (06/12/23 1:49 PM) Blood Pressure [90-138/55-84 mm Hg] 163/83mm Hg *H* (06/12/23 5:54 PM) 149/67mm Hg *H* (06/12/23 4:45 PM) 148/65mm Hg *H* (06/12/23 1:49 PM) Respiratory Rate [16-30 br/min] 18 br/min (06/12/23 5:54 PM) 17 br/min (06/12/23 4:45 PM) 18 br/min (06/12/23 1:49 PM) Temperature [96.8-100.4 DegF] 97.5 DegF (06/12/23 5:54 PM) 98.4 DegF (06/12/23 4:45 PM) 98.3 DegF (06/12/23 1:49 PM) Mode of Delivery (Oxygen) Room air (06/12/23 5:54 PM) Room air (06/12/23 4:45 PM) Room air (06/12/23 1:49 PM) Blood pressure sites Arm, left (06/12/23 5:54 PM) Arm, right (06/12/23 4:45 PM) Arm, right (06/12/23 1:49 PM) Temperature Route Oral (06/12/23 5:54 PM) Oral (06/12/23 4:45 PM) Oral (06/12/23 1:49 PM) Dry Weight 82.1 kg (06/12/23 5:54 PM) 82.1 kg (06/12/23 11:52 AM) 82.1 kg (06/12/23 11:32 AM) Dry Weight Obtained Via Standing scale (06/12/23 11:32 AM) Social History Social History Type Response Smoking Status Never (less than 100 in lifetime) entered on: 10/30/21 Sex Note * Coleen LONGORIA, Yvonne Rodríguez: PERFORM Event Display: Patient Education Leaflets Authored Date: [id number] Leg Swelling in Both Legs ?? [id number] Leg Swelling in Both Legs Swelling of the feet, ankles, and legs is called edema. It's caused by extra fluid that has collected in the tissues. Extra fluid in the body settles in the lowest part because of gravity. This is why the legs and feet are most affected. Some of the causes for edema include: ??? Disease of the heart, such as congestive heart failure ??? Standing or sitting for long periodsof time ??? Infection of the feet or legs ??? Blood pooling in the veins of your legs (venous insufficiency) when the veins have less elasticity ??? Dilated veins in your lower leg (varicose veins) ??? Poor drainage of the lymphatic system ??? Some medicines, including some hormones such as control pills, some blood pressure medicines such as calcium channel blockers, steroids, and some antidepressants such as MAO inhibitors and tricyclics ??? Menstrual periods that cause you to retain fluids ??? Many types of kidney disease ??? Liver failure??or cirrhosis ??? , in which some swelling is normal, but a sudden increase in leg swelling or weight gain can be a sign of a dangerouscomplication of called eclampsia ??? Poor nutrition ??? Thyroid disease Treatment will depend on what is causing the swelling in your legs. Your healthcare provider may prescribe water pills (diuretics) to get rid of the extra fluid. Home care Follow these guidelines when caring for yourself at home: ??? Keep your legs up while lying or sitting. ??? If infection, injury, or recent surgery is causing the swelling, stay off your legs as muchas possible until symptoms get better. ??? If your healthcare provider says that your leg swelling is caused by venous insufficiency or varicose veins, don't sit or director of brand marketing one place for long periods of time. Take breaks and walk about every few hours. Brisk walking is a good exercise. It helps circulate the blood that has collected in your leg. Talk with your provider about using support stockings to stop daytime leg swelling. ??? If your provider says that heart disease is causing your leg swelling, follow a low-salt diet to stop extra fluid from staying in your body. You may also need medicine. ?? Follow-up care Follow up with your healthcare provider, or as advised. ?? When to get medical advice Call your healthcare provider right away if any of these occur: ??? Swelling in both legs or ankles that gets worse ??? Belly (abdominal) swelling ??? Redness, warmth, or swelling in 1 leg ??? Fever of 100.4??F (38??C) or higher,??or as advised by your provider ??? Yellow color to your skin or eyes ??? Rapid, unexplained weight gain ??? Having to sleep upright or use more pillows ? Call 911 Call 911 or get medical care right away if you have: ??? New shortness of breath or chest pain ??? Worsening shortness of breath or chest pain? Last Reviewed Date: 2022 ?? 3040-5391 [employer]. All rights reserved. This information is not intended as a substitute for professional medical care. Always follow your healthcare professional's instructions. ?? Patient Care team information Care Team Personnel Name: Halie Andino RN Position: S RN Member Role: Primary Care Nurse Name: Carlos Rosa Position: Reference Physician Member Role: PCP Address: Address: [address] [place] [id number]- Name: Yvonne Phillips Position: S Associate Professional Member Role: ED Physician Registered Nurse Maternal Child Address: Address: [address] [place] [address]- Name: Sis WONG, Patsy Position: [facility] ED RN W/OE and Tasks Member Role: Patient Care Provider Name: Keenan Purcell Position: [facility] ED TA [facility] Member Role: Fuel Cell Technician Name: Ike Arevalo MD Position: [facility] ED Medicine MD Member Role: Admitting Physician Address: Address: [address] [place] [address]- Care Team Related Persons Name: LYNDA COPE Address: home [address] [address] Name: CHIQUI POLK Address: home [address] [place] [address] Name: ANTHONY GOLD Address: home [address] [place] [address]
--- OUTSIDE RECORDS SUMMARY | 2024-02-16 00:51 | XMS_ITS | Continuity of Care Document ---
Author Organization [facility] ter Address [address] [place] [id number]- Care Team Providers Care Supervisor Sterile Processing Name Role Phone Carlos Rosa Primary Care Physician [place] [facility] [place] - 10/24/[address] [address]- Discharge Disposition: A-D/C Home Attending Physician: Gracy [...] patch, 0 Refills, Maintenance, 03/30/23 14:28:00 EDT, [id number], Partial fill upon patient request [...] Refills, Maintenance, 11/19/22 19:08:00 EDT, DIS Tablet, [id number], Partial fill upon patient request if the [...] List Condition Confirmation Course Effective Dates Status [facility] atus Informant Severe obesity Confirmed Active Results Radiology Reports * Exam Date Time Procedure Performing Provider Status 10/23/23 11:[address] Abd/Pelvis W/ IV Contrast Only Bakari Alexander; Jose (Verified) Notes: (CT Abd/Pelvis W/ IV Contrast Only) Reason For Exam: Periumbilical pain, hx bowel obstruction;Other: RESULT: CT Abd/Pelvis W/ IV Contrast Only CT Abd/Pelvis W/ IV Contrast Only Hx of Present Illness: Pt coming from [facility], sudden onset weakness dizziness whileon toilet, no LOC. Chest pain earlier today, since resolved; Reason: Other:; Periumbilical pain, hxbowel obstruction; Clinical Question(s): Obstruction; Order Comment: TECHNIQUE: Spiral CT through the abdomen and pelvis with IV contrast formatted in 3 planes. 100 cc of Omnipaque 300 was administered intravenously. This study was performed without oral contrast. Weight-based protocol using automatic tube modulation was used to optimize exposure parameters. CTDIvol Body: 15.20 mGy, DLP Body: 822 mGy*cm. COMPARISON: None. FINDINGS: Copper Tapper View Findings, Lines and Tubes: None. Visualized Chest: Mild dependent atelectasis. Small air-filled cyst in the left lower lobe. No pleural effusion. Normal heart size. No pericardial effusion. Diaphragm: Normal. Liver: Normal. Gallbladder: No CT evidence of gallbladder pathology. Bile ducts: No biliary ductal dilation. Spleen: Normal. Pancreas: Normal. Adrenal glands: Normal. Kidneys and ureters: No hydronephrosis, stones, or suspicious masses. Small hypodensities that are too small to characterize are noted, requiring no dedicated follow up. Bladder: Normal. Reproductive organs: Likely pedunculated subserosal fibroids along the posterior body of the uterus. No adnexal masses. Stomach, small bowel, and large bowel: The stomach is normal. The small bowel is normal in caliber,with no evidence of bowel obstruction. The rectum is normal. Moderate amount stool within the colon. Mild wall thickening of the descending and sigmoid colon could be in part related to underdistention, and in part a mild colitis. Appendix: Not seen, but no evidence of appendicitis. Peritoneum and retroperitoneum: No ascites or pneumoperitoneum. No omental or mesenteric lesions. Lymph nodes: No enlarged lymph nodes. Blood vessels: Normal. No aneurysm. No evidence of venous thrombosis. Abdominal and pelvic wall: Unremarkable. Bones: Prior right hip ORIF. Degenerative changes in the lower lumbar spine. IMPRESSION: Mild wall thickening of the descending and sigmoid colon could be in part related to underdistention, and in part a mild colitis. WSN: [id number] Ordering Physician: Florencio Ferguson Dictated By: Harinder Arellano MD Dictated Date/Time: 10/23/23 11:30 p Reviewed By: Harinder Arellano MD Signed By: Harinder Arellano MD Signed Date/Time: 10/23/23 11:30 pm Transcribed By: TAWNY Transcribed Date/Time: 10/23/23 11:23 pm * Exam Date Time Procedure Performing Provider Status 10/23/23 8:00 PM US Doppler Ext Lower Venous Left Jenna Ferro; Auth (Verified) Notes: (US Doppler Ext Lower Venous Left) Reason For Exam: Pain in limb;Other: RESULT: US Doppler Ext Lower Venous Left US Doppler Ext Lower Venous Left INDICATION: 68 years old Female with Hx of Present Illness: Pt coming from [facility], sudden onset weakness dizziness while on toilet, no LOC. Chest pain earlier today, since resolved; Reason: Other:; Pain in limb; Clinical Question(s): Thrombus. COMPARISON: Bilateral leg ultrasound June 12, 2023 IMAGING TECHNIQUE: Ultrasound of the LEFT lower extremity deep venous system was performed using grayscale, color, and spectral Doppler ultrasound from the upper groin throughout the calf assessing for complete compressibility and good response to compression and augmentation. FINDINGS: INCIDENTAL FINDINGS: None. LEFT LOWER EXTREMITY: Common femoral vein: Patent. No thrombosis. Femoral vein: Patent. No thrombosis. Popliteal vein: Patent. No thrombosis. Calf veins: Patent. No thrombosis. CONTRALATERAL RIGHT COMMON FEMORAL VEIN IS ALSO PATENT. IMPRESSION: 1. No ultrasound evidence of acute deep venous thrombosis in the LEFT lower extremity. Thank you for allowing me to participate in the care of this patient. WSN: [id number] Ordering Physician: Florencio Ferguson Dictated By: Ramirez Gonsalves MD Dictated Date/Time: 10/23/23 8:09 pm Reviewed By: Ramirez Gonsalves MD Signed By: Ramirez Gonsalves MD Signed Date/Time: 10/23/23 8:09 pm Transcribed By: TAWNY Transcribed Date/Time: 10/23/23 8:09 pm * Exam Date Time Procedure Performing Provider Status 10/23/23 7:19 PM Chest 2 Views Frontal and Lat Catrina Martínez; Auth (Verified) Notes: (Chest 2 Views Frontal and Lat) Reason For Exam: Shortness of Breath RESULT: Chest 2 Views Frontal and Lat Chest 2 Views Frontal and Lat Hx of Present Illness: Pt coming from [facility], sudden onset weakness dizziness whileon toilet, no LOC. Chest pain earlier today, since resolved; Reason: Shortness of Breath; Clinical Question(s): CHF COMPARISON: 07/20/2023 FINDINGS: LINES AND TUBES: Cardiac loop recorder again noted. LUNGS AND PLEURA: Low lung volumes with mild basilar atelectasis. Mild prominence of central vascularity. No pleural effusion. No pneumothorax. HEART, MEDIASTINUM AND ALEX: Heart is at the upper limits of normal for size. Normal mediastinal and hilar contour. BONES AND SOFT TISSUES: No acute abnormality. IMPRESSION: Low lung volumes with mild basilar atelectasis. WSN: [id number] Ordering Physician: Florencio Ferguson Dictated By: Jluis Pineda MD Dictated Date/Time: 10/23/23 7:30 pm Reviewed By: Jluis Pineda MD Signed By: Jluis Pineda MD Signed Date/Time: 10/23/23 7:30 pm Transcribed By: TAWNY Transcribed Date/Time: 10/23/23 7:30 pm Vital Signs Most recent to oldest [Reference Range]: 1 2 3 Oxygen Saturation [94-100 %] 96 % (10/24/23 1:14 AM) 98 % (10/23/23 7:43 PM) 100 % (10/23/23 5:48 PM) Pulse Rate [55-90 bpm] 70 bpm (10/24/23 1:14 AM) 73 bpm (10/23/23 7:43 PM) 74 bpm (10/23/23 5:48 PM) Blood Pressure [90-138/55-84 mm Hg] 143/60mm Hg *H* (10/24/23 1:14 AM) 134/54mm Hg (10/23/23 7:43 PM) 143/58mm Hg *H* (10/23/23 5:48 PM) Respiratory Rate [16-30 br/min] 18 br/min (10/24/23 1:14 AM) 18 br/min (10/23/23 7:43 PM) 15 br/min *L* (10/23/23 5:48 PM) Temperature [96.8-100.4 DegF] 98.1 DegF (10/24/23 1:14 AM) 98.4 DegF (10/23/23 5:48 PM) Mode of Delivery (Oxygen) Room air (10/24/23 1:14 AM) Room air (10/23/23 7:43 PM) Room air (10/23/23 5:48 PM) Temperature Route Oral (10/24/23 1:14 AM) Oral (10/23/23 5:48 PM) Social History Social History Type Response Smoking Status Never (less than 100 in lifetime) entered on: 10/30/21 Sex Female EKG study * Event Display: ECG 12-Lead Authored Date: Please click on pdf link to open report * Event Display: ECG 12-Lead Authored Date: Ventricular Rate: 69 BPM Atrial Rate: 69 BPM P-R Interval: 176 ms QRS Duration: 100 ms Q-T Interval: 446 ms QTC Calculation(Bazett): 477 ms P Rison: 45 degrees R Rison: 58 degrees T Rison: 72 degrees Normal sinus rhythm Possible Left atrial enlargement Incomplete right bundle branch block Cannot rule out Anterior infarct , age undetermined Abnormal ECG When compared with ECG of 20-JUL-2023 11:16, No significant change was found Confirmed by DINO REEVES MD ([id number]) on 10/24/2023 7:39:51 AM [place]: DINO REEVES MD Note * Tad Daigle: PERFORM Event Display: Patient Education Leaflets Authored Date: [id number] Near-Fainting with Uncertain Cause ?? [id number] Near-Fainting with Uncertain Cause Fainting (syncope) is a temporary loss of consciousness. It's often called passing out. It happens when blood flow to the brain is reduced. Near-fainting (near-syncope) is like fainting, but you don't fully pass out. Instead, you feel like you are going to pass out, but don't actually lose consciousness. Signs and symptoms These are symptoms of near-fainting or symptoms that can be associated with near-fainting: ??? Feeling lightheaded or??like you are going to faint ??? Weak pulse ??? Nausea ??? Sweating ??? Blurred vision or feeling like your vision is fading ??? Palpitations ??? Chest pain ??? Trouble breathing ??? Feeling cool and clammy ?? Causes Fainting typically happens when your blood pressure or heart rate suddenly drops, and not enough blood flows to your brain. Common minor causes include: ??? Sudden emotional stress such as fear, pain, panic, or the sight of blood ??? Straining or overexertion, such as straining while using the toilet, vomiting, coughing, or sneezing ??? Standing up too quickly, or standing up for too long a time More serious causes include: ??? Very slow, fast, or irregular heart rate (arrhythmia) ??? Dehydration ??? Significant blood loss ??? Medicines, or a recent change in medicines. Medicines that can cause fainting include blood pressure or heart medicines. ??? Heart attack ??? Heart valve problems Remember, even minor causes can become serious if you fall and injure yourself, or are driving. Youmay need more tests. It's very important that you follow up with your doctor as advised. ?? Home care These guidelines will help you care for yourself at home: ??? Rest today. You can resume most of your normal activities as soon as you are feeling back to normal. ??? If you become lightheaded or dizzy, lie down right away or sit with your head between yourknees. ??? Drink plenty of fluids and don't skip meals. Because the exact cause of your near fainting spell is not known, another spell could occur withoutwarning. To stay safe, don't drive a car or use dangerous equipment. Don't take a bath alone. Don'tswim alone. You can resume these activities when your healthcare provider says that you are no longer in danger of having a near-fainting spell. ?? Follow-up care Follow up with your healthcare provider, or as advised. Call 911 Call 911 or get emergency care if any of the following occur: ??? Another near- fainting or full fainting spell occurs, and it's not explained by the common minor causes listed above ??? Chest, arm, neck, jaw, back or abdominal pain ??? Shortness of breath ??? Weakness, tingling, or numbness in one side of the face, or in one arm or leg ??? Slurred speech, confusion, trouble walking or seeing ??? Seizure ?? When to get medical advice Call your healthcare provider for advice if any of these occur: ??? Changes in your medicines ??? You start to have near fainting on a more frequent basis ?? Last Reviewed Date: 2021 ?? 1458-0713 [employer]. All rights reserved. This information is not intended as a substitute for professional medical care. Always follow your healthcare professional's instructions. ?? * Tad Daigle: PERFORM Event Display: Patient Education Leaflets Authored Date: [id number] Unknown Causes of Abdominal Pain(Adult) ?? [id number] Unknown Causes of Abdominal Pain(Adult) The exact cause of your belly (abdominal) pain is not clear. Your exam and tests don't suggest a dangerous cause at this time. This does not mean that this is something to worry about. Everyone likesto know the exact cause of the problem. But sometimes with belly pain, there is no clear-cut cause,and this could be a good thing. Your symptoms can be treated, and you should feel better.?? Your condition does not seem serious now. But sometimes the signs of a serious problem may take more time to appear. For this reason,??it's important for you to watch for any new symptoms, problems,??or worsening of your condition. Over the next few days, the abdominal pain may come and go. Or it may be constant. Other common symptoms can include nausea and vomiting. Sometimes it can be difficult to tell if you feel nauseous. You may just feel bad and not connect that feeling to nausea. Constipation, diarrhea, and a fever maygo along with the pain. The pain may continue even if treated correctly over the following days. Depending on how things go, sometimes the cause can become clear and you may need more??or different treatment. You may also need other evaluations, medicines, or tests. Home care Your healthcare provider may prescribe medicine for pain, symptoms, or an infection. ??Follow the healthcare provider's instructions for taking these medicines. General care ??? Rest as much as you can until your next exam. No strenuous activities. ??? Try to not do anything that may have caused your symptoms. This might be not taking any medicines unless otherwise directed by your healthcare provider. It might be not eating certain foods or doing certain activities. ??? Find positions that ease discomfort. A small pillow placed on your belly may help relieve pain. ??? Something warm on your belly such as a heating pad may help, but be careful not to burn yourself. Diet ??? Don???t??force yourself to eat, especially if having cramps, vomiting, or diarrhea. ??? Water is important so you don't get dehydrated. Soup may also be good. Sports drinks may also help, especially if they are not too acidic. Don't drink sugary drinks as this can make things worse. Take liquids in small amounts. Don???t??guzzle them. ??? Caffeine sometimes makes the pain and cramping worse. ??? Don???t take??dairy products if you have vomiting or diarrhea. ??? Don't eat large amounts at a time. Eat several small meals during the day instead of 2 or 3 larger meals. Wait a few minutesbetween bites. ??? Eat a diet low in fiber (called a low-residue diet). Foods allowed include refined breads, white rice, fruit and vegetable juices without pulp, tender meats. These foods will pass more easily through the intestine. ??? Don???t have??whole-grain foods, whole fruits and vegetables,meats, seeds and nuts, fried or fatty foods, dairy, alcohol and spicy foods until your symptoms go away. ?? Follow-up care Follow up with your healthcare provider, or as advised, if your pain does not begin to improve in the next 24 hours. ?? Call 911 Call?? 911 if any of these occur: ??? Trouble breathing ??? Confusion ??? Fainting or loss of consciousness ??? Rapid heart rate ??? Seizure ?? When to seek medical advice Call your healthcare provider right away if any of these occur: ??? Pain gets worse or moves to theright lower abdomen ??? New or worsening vomiting or diarrhea ??? Swelling of the abdomen ??? Unable to pass stool for more than??3 days ??? Fever of 100.4??F (38??C) or higher, or as directed by your healthcare provider ??? Blood in vomit or bowel movements (dark red or black color) ??? Yellow color of eyes and skin (jaundice) ??? Weakness, dizziness ??? Chest, arm, back, neck, or jaw pain ??? Can't keep down medicines, liquids, or water because of too much vomiting ??? If you have a vagina: unexpected vaginal bleeding or missed period ?? Last Reviewed Date: 2021 ?? 3017-2151 [employer]. All rights reserved. This information is not intended as a substitute for professional medical care. Always follow your healthcare professional's instructions. ?? Patient Care team information Care Team Personnel Name: Halie Andino RN Position: S RN Member Role: Primary Care Nurse Name: Carlos Rosa Position: Reference Physician Member Role: PCP Address: Address: [address] [place] [address] [place] [address]- Care Team Related Persons Name: LYNDA COPE Address: home [address] [place] [address] Name: CHIQUI POLK Address: home [address] [facility] [place] [address] Name: ANTHONY GOLD Address: home [address] [facility] [place] [address]
--- OUTSIDE RECORDS SUMMARY | 2024-02-16 00:51 | XMS_ITS | Continuity of Care Document ---
Author Organization [facility] ter Address [address] [place] [address]- Care Team Providers Care Tilting Head Band Sawyer Name Role Phone Carlos Rosa Primary Care Physician [place] [facility] [place]): 07/19/23 - 07/20/[address] [address]- Encounter Diagnosis Chest pain(Final) - 07/20/23 Left shoulder pain(Final) - 07/20/23 Back pain(Final) - 07/20/23 Discharge Disposition: A-D/C Home Attending Physician: Kianna Bautista MD Admitting Physician: Kianna Bautista MD Referring Physician: Not on Staff, Referring [...] patch, 0 Refills, Maintenance, 03/30/23 14:28:00 EDT, [id number], Partial fill upon patient request if the [...] Refills, Maintenance, 11/19/22 19:08:00 EDT, DIS Tablet, [id number], Partial fill upon patient request if the prescription is for a schedule II opioid drug., 165, cm, 06/15/23 18... Start Date: 11/19/22 Status: Ordered rOPINIRole [...] Exam Date Time Procedure Performing Provider Status 07/20/23 12:06 AM Chest 2 Views Fronta l and Lat Nolvia Hernandez; Auth (Verified) Notes: (Chest 2 Views Frontal and Lat) Reason For Exam: Chest Pain;Other: RESULT: Chest 2 Views Frontal and Lat Examination: Chest performed on 07/20/2023. History: Chest pain. Findings: Frontal and lateral views of the chest are compared to a prior study dated 03/26/2023. A cardiac loop recorder is noted. The cardiac and mediastinal silhouettes are within normal limits.The lungs are clear. The osseous and soft tissue structures are unremarkable. Impression: There is no acute cardiopulmonary disease. WSN: [id number] Ordering Physician: Inderjit Orosco Dictated By: Elvira Nguyễn MD Dictated Date/Time: 07/20/23 7:29 am Reviewed By: Elvira Nguyễn MD Signed By: Elvira Nguyễn MD Signed Date/Time: 07/20/23 7:29 am Transcribed By: TAWNY Transcribed Date/Time: 07/20/23 7:28 am Vital Signs Most recent to oldest [Reference Range]: 1 2 3 Height 163 cm (07/19/23 11:25 PM) Weight 170 kg (07/19/23 11:25 PM) Oxygen Saturation [94-100 %] 100 % (07/20/23 3:30 PM) 100 % (07/20/23 9:16 AM) 100 % (07/20/23 8:42 AM) Pulse Rate [55-90 bpm] 66 bpm (07/20/23 3:30 PM) 62 bpm (07/20/23 9:16 AM) 59 bpm (07/20/23 8:42 AM) Body Mass Index [18.5-24.99 kg/m2] 63.98 kg/m2 *>HHI* (07/19/23 11:25 PM) Blood Pressure [90-138/55-84 mm Hg] 133/56mm Hg (07/20/23 3:30 PM) 146/50mm Hg *H* (07/20/23 9:16 AM) 141/51mm Hg *H* (07/20/23 8:42 AM) Respiratory Rate [16-30 br/min] 18 br/min (07/20/23 3:30 PM) 18 br/min (07/20/23 9:16 AM) 18 br/min (07/20/23 8:42 AM) Temperature [96.8-100.4 DegF] 97.7 DegF (07/20/23 3:30 PM) 97.6 DegF (07/20/23 8:42 AM) 97.6 DegF (07/20/23 6:17 AM) Mode of Delivery (Oxygen) Room air (07/20/23 3:30 PM) Room air (07/20/23 9:16 AM) Room air (07/20/23 8:42 AM) Blood pressure sites Arm, right (07/20/23 3:30 PM) Arm, right (07/20/23 9:16 AM) Arm, right (07/20/23 8:42 AM) Temperature Route Oral (07/20/23 3:30 PM) Oral (07/20/23 8:42 AM) Oral (07/20/23 6:17 AM) Dry Weight 77 kg (07/19/23 11:25 PM) Social History Social History Type Response Smoking Status Never (less than 100 in lifetime) entered on: 10/30/21 Sex Female Patient Care team information Care Team Personnel Name: Halie Andino RN Position: S RN Member Role: Primary Care Nurse Name: Carlos Rosa Position: Reference Physician Member Role: PCP Address: Address: [address] [place] [address] [place] [address]- Care Team Related Persons Name: LYNDA COPE Address: home [address] [place] [address] Name: CHIQUI POLK Address: home [address] [place] [address] Name: ANTHONY GOLD Address: home [address] [facility] [place] [address]
--- OUTSIDE RECORDS SUMMARY | 2024-02-16 00:51 | XMS_ITS | Continuity of Care Document ---
Author Organization [facility] ter Address [address] [place] [id number]- Care Team Providers Care Cnc Cutting Operator Name Role Phone Carlos Rosa Primary Care Physician Encounter [facility] Date(s): 03/26/23 - 03/27/[address] [address]- Encounter Diagnosis Chest pain(Final) - 03/27/23 Lower extremity edema(Final) - 03/27/23 Discharge Disposition: A-D/C Home Attending Physician: Melchor [...] Refills, Maintenance, 11/19/22 19:08:00 EDT, DIS Tablet, [facility] #[id number], Partial fill upon patient request if the [...] Exam Date Time Procedure Performing Provider Status 03/26/23 7:22 PM Chest 2 Views Frontal and Lat Gen Lebron; Auth (Verified) Notes: (Chest 2 Views Frontal and Lat) Reason For Exam: Chest Pain;Other: RESULT: Chest 2 Views Frontal and Lat Chest 2 Views Frontal and Lat Hx of Present Illness: Patient reports left sided chest pain with radiation to left shoulder since 0900 today. 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 Pain reduced from 10 10 to 5 10 after medications. Denies N V SOB at this time.; Reason: Other:; Chest Pain; Clinical Question(s): Other: COMPARISON: 03/07/2023 FINDINGS: LINES AND TUBES: None. LUNGS AND PLEURA: Reticular markings noted in both lungs. No pleural effusion. No pneumothorax. HEART, MEDIASTINUM AND ALEX: Heart is normal in size. Normal mediastinal and hilar contour. BONES AND SOFT TISSUES: No acute abnormality. IMPRESSION: No acute abnormality. WSN: [id number] Ordering Physician: Katiana Kaminski Dictated By: Maciel Conti MD Dictated Date/Time: 03/26/23 7:30 pm Reviewed By: Maciel Conti MD Signed By: Maciel Conti MD Signed Date/Time: 03/26/23 7:30 pm Transcribed By: TAWNY Transcribed Date/Time: 03/26/23 7:29 pm Vital Signs Most recent to oldest [Reference Range]: 1 2 3 Height 163 cm (03/27/23 12:43 PM) 163 cm (03/27/23 11:20 AM) 163 cm (03/26/23 6:54 PM) Weight 73 kg (03/27/23 12:43 PM) 73 kg (03/27/23 11:20 AM) 73 kg (03/26/23 6:54 PM) Oxygen Saturation [94-100 %] 99 % (03/27/23 12:43 PM) 100 % (03/27/23 11:20 AM) 100 % (03/27/23 9:10 AM) Pulse Rate [55-90 bpm] 63 bpm (03/27/23 12:43 PM) 68 bpm (03/27/23 11:20 AM) 73 bpm (03/27/23 9:10 AM) Body Mass Index [18.5-24.99 kg/m2] 27.48 kg/m2 *H* (03/27/23 12:43 PM) 27.48 kg/m2 *H* (03/27/23 11:20 AM) 27.48 kg/m2 *H* (03/26/23 6:38 PM) Blood Pressure [90-138/55-84 mm Hg] 153/59mm Hg *H* (03/27/23 12:43 PM) 132/63mm Hg (03/27/23 11:20 AM) 122/59mm Hg (03/27/23 9:10 AM) Respiratory Rate [16-30 br/min] 19 br/min (03/27/23 12:43 PM) 17 br/min (03/27/23 11:20 AM) 18 br/min (03/27/23 9:10 AM) Temperature [96.8-100.4 DegF] 97.9 DegF (03/27/23 12:43 PM) 97.5 DegF (03/27/23 11:20 AM) 97.1 DegF (03/27/23 9:10 AM) Mode of Delivery (Oxygen) Room air (03/27/23 12:43 PM) Room air (03/27/23 11:20 AM) Room air (03/27/23 9:10 AM) Blood pressure sites Arm, left (03/27/23 12:43 PM) Arm, left (03/27/23 11:20 AM) Arm, left (03/27/23 9:10 AM) Temperature Route Oral (03/27/23 12:43 PM) Oral (03/27/23 11:20 AM) Oral (03/27/23 9:10 AM) Dry Weight 73 kg (03/27/23 12:43 PM) 73 kg (03/27/23 11:20 AM) 73 kg (03/26/23 6:54 PM) Weight Obtained Via Patient/family state d (03/26/23 6:38 PM) Dry Weight Obtained Via Patient/family s tated (03/26/23 6:38 PM) Social History Social History Type Response Smoking Status Never (less than 100 in lifetime) entered on: 10/30/21 Sex EKG study * Event Display: ECG 12-Lead Authored Date: Please click on pdf link to open report * Event Display: ECG 12-Lead Authored Date: [id number] Ventricular Rate: 60 BPM Atrial Rate: 60 BPM P-R Interval: 176 ms QRS Duration: 96 ms Q-T Interval: 470 ms QTC Calculation(Bazett): 470 ms P Playas: 40 degrees R Playas: 23 degrees T Playas: 62 degrees Normal sinus rhythm Possible Left atrial enlargement RSR' or QR pattern in V1 suggests right ventricular conduction delay Borderline ECG When compared with ECG of 26-MAR-2023 18:40, MANUAL COMPARISON REQUIRED, DATA IS UNCONFIRMED Confirmed by DINO REEVES MD ([id number]) on 03/27/2023 1:16:03 PM [place]: DINO REEVES MD * Event Display: ECG 12-Lead Authored Date: [id number] Please click on pdf link to open report * Event Display: ECG 12-Lead Authored Date: [id number] Ventricular Rate: 62 BPM Atrial Rate: 62 BPM P-R Interval: 176 ms QRS Duration: 100 ms Q-T Interval: 464 ms QTC Calculation(Bazett): 470 ms P Playas: 35 degrees R Playas: 40 degrees T Playas: 63 degrees Normal sinus rhythm Possible Left atrial enlargement RSR' or QR pattern in V1 suggests right ventricular conduction delay Borderline ECG When compared with ECG of 11-JAN-2023 02:29, No significant change was found Confirmed by DINO REEVES MD ([id number]) on 03/27/2023 1:15:37 PM [place]: DINO REEVES MD Note * Maribell Hollingsworth MD: PERFORM Event Display: Patient Education Leaflets Authored Date: [id number] Uncertain Causes of Chest Pain ?? [id number] Uncertain Causes of Chest Pain Chest pain [...] leg ?? Last Reviewed Date: 2021 ?? 2256-0912 [employer]. All rights reserved. This information is not intended as a substitute for professional medical care. Always follow your healthcare professional's instructions. ?? Patient Care team information Care Team Personnel Name: Halie Andino RN Position: [facility] RN Member Role: Primary Care Nurse Name: Carlos Rosa Position: Reference Physician Member Role: PCP Address: Address: [address] [place] [phone]- Name: Dionisio Avila RN Position: [facility] ED RN W/OE and Tasks Member Role: Patient Care Provider Name: Melchor Bingham DO Position: [facility] ED Medicine MD Member Role: Admitting Physician Address: Address: [address] [place] [id number]- Name: Carlos Shankar Position: [facility] ED TA [facility] Member Role: Wheel Borer Name: Maribell Hollingsworth MD Position: [facility] Resident Member Role: ED Resident Address: Address: [address] [place] [id number]- Care Team Related Persons Name: LYNDA COPE Address: home [address] [address] Name: HCIQUI POLK Address: home [address] [place] [address] Name: ANTHONY GOLD Address: home [address] [place] [address]
[2024-02-16 01:05] LABS: MANUAL DIFF FLAG NO
[2024-02-16 01:06] LABS: Basophils Absolute Auto 0.1 X10*3/uL (0.0-0.2); Basophils Percent Auto 0.6 % (0-2); Eosinophils Absolute Auto 0.3 X10*3/uL (0.0-0.4); Hematocrit 36.9 % (37.0-47.0); Hemoglobin 12.2 g/dl (12.0-16.0); Imm Gran Abs Auto 0.04 X10*3/uL (0.00-0.03); Imm Gran Pct Auto 0.5 % (0.0-0.4); Lymphocytes Absolute Auto 2.4 X10*3/uL (1.2-4.9); Lymphocytes Percent Auto 31.2 % (20-40); Mean Corpuscular HGB Conc 33.1 g/dl (31.0-35.0); Mean Corpuscular Hemoglobin 30.7 pg (27.0-33.0); Mean Corpuscular Volume 92.9 fL (80.0-98.0); Mean Platelet Volume 10.4 fL (9.4-12.3); Monocytes Absolute Auto 0.6 X10*3/uL (0.1-1.2); Neutrophils Absolute Auto 4.3 x10*3/uL (2.0-8.3); Neutrophils Percent Auto 55.7 % (45-73); Platelet Count 166 X10*3/uL (160-400); Red Blood Count 3.97 X10*6/uL (4.20-5.50); Red Cell Distribution Width 13.2 % (11.0-16.0); White Blood Count 7.8 X10*3/uL (4.8-10.8)
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
[2024-02-16 01:13] LABS: D Dimer High Sensitivity 312 NG/ML
[2024-02-16 01:18] LABS: Anion Gap 10 (12-20); Blood Urea Nitrogen 19 mg/dL (9-16); Calcium 9.1 mg/dL (8.4-10.2); Carbon Dioxide 27 mmol/L (22-29); Chloride 110 mmol/L (96-108); Creatinine Clr Calc Pharmacy 67.7; Estimated Glomerular Filt Rate > 60; Glucose Random 119 mg/dL (60-115); Potassium 3.1 mmol/L (3.3-5.1); Sodium 144 mmol/L (135-145)
[2024-02-16 01:19] LABS: Alanine Aminotransferase 25 U/L (0-31); Albumin Level 3.3 g/dL (3.5-5.0); Alkaline Phosphatase 100 U/L (39-117); Aspartate Amino Transferase 38 U/L (5-31); Bilirubin Total 0.3 mg/dL (0.0-1.0); Lipase 32 U/L (8-78); Total Protein 5.8 g/dL (6.5-8.0)
[2024-02-16 01:24] LABS: Troponin-I High Sensitivity 4.7 ng/L (<3.5-17.0)
[2024-02-16] MEDS: Famotidine/PF 20 MG/2 ML VIAL IVPUSH (01:29)
[2024-02-16] MEDS: Magnesium Hydrox/Alum Hydrox 30 ML ORAL.SUSP PO (01:29)
[2024-02-16] MEDS: 0.9 % Sodium Chloride 1,000 ML 999 ML IV (01:29)
[2024-02-16] MEDS: Potassium Chloride Packet 20 MEQ PACKET 40 MEQ PO (02:37)
[2024-02-16] MEDS: Potassium Chloride/H20 10 MEQ/100 ML PIGGYBACK 100 MEQ IV (02:37)
[2024-02-16] MEDS: iohexoL 350 MG/ML 100 ML INFUS..BTL 65 ML IV (02:56)
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
[2024-02-16 04:00] VITALS: BP 153/50; PULSE 77; RESP 15; TEMP 36.8; O2SAT 96
--- NOTE | 2024-02-16 04:39 | PC.NURSE ---
Patient requesting medication for nausea, Dr. Cardenas notified.
[2024-02-16 04:42] LABS: Potassium, Serum 3.8 mmol/L (3.3-5.1)
[2024-02-16 04:44] LABS: Troponin-I High Sensitivity 3.6 ng/L (<3.5-17.0)
[2024-02-16] MEDS: ondansetron HCL 4 MG/2 ML VIAL IVPUSH (04:54)
[2024-02-16 06:00] VITALS: BP 162/61; PULSE 78; RESP 15; TEMP 36.7; O2SAT 97
[2024-02-16 07:27] VITALS: BP 146/68; PULSE 79; RESP 16; TEMP 36.8; O2SAT 98
== END 2024-02-16 07:28 | disposition home or self-care (01) ==
PROVIDERS: Emergency Provider Emergency Medicine; PCP Physician Assistant Medical
DX: R07.89 Other chest pain (principal); R06.02 Shortness of breath; K21.9 Gastro-esophageal reflux disease without esophagitis; R11.0 Nausea; Z79.899 Other long term (current) drug therapy
CPT/HCPCS: 36415; 71275; 80053; 83690; 84132; 84484; 85025; 85379; 93005; 96361; 96365; 96375; 99285; J2405; J3480; Q9967

== ENCOUNTER 2024-05-01 08:01 | Day surgery (SDC) | payer OTHER, SELFPAY ==
[2024-04-26 11:48] VITALS: BMI 31.6
--- NOTE | 2024-04-27 13:02 | P.CONAN_ITS ---
Documented by User: Francheska Moncada NP 04/27/24 13:03 HPI - Anesthesia Eval Consult details Narrative: 69yo F for Right Cataract Extraction IOL Insertion No previous cataract on record PMFSH Active Problems Active Problems: All Active Problems Edema (Acute) CKD (chronic kidney disease) (Acute) Hypertension (Acute) Past Medical History Medical History Osteopenia Glaucoma Osteoarthritis CKD (chronic kidney disease) stage 3, GFR 30-59 ml/min Vitamin D deficiency Vitamin B12 deficiency Shoulder pain, left Back pain Anxiety LOC (loss of consciousness) Bilateral leg edema Chest pain Dyspnea RLS (restless legs syndrome) Depression Presence of implantable pulmonary artery pressure and heart rate monitoring system Right knee injury Right shoulder injury Femur fracture, right Femur fracture, left delivery delivered Migraine Restless Kidney disease Heart murmur Overactive bladder Overactive adult syndrome Thyroid disease Hyperlipidemia Hypertension Surgical History Surgical History History of surgery Social History Social History Alcohol intake: never Patient Tobacco Use Status: Never used Tobacco Use of substances other than those prescribed or required for medical reasons: No Substance Use Type: Marijuana Advance Directives: Yes Advance Directives Information Provided: No Advance Directives on File: Yes Advance Directives Date on File: 09/10/20 Recently lost weight without trying: No Eating poorly because of decreased appetite: No Nutrition Risks: No Nutritional Risk Patient : No : No Meds Allergies Allergy/AdvReac Type Severity Reaction Status Date / Time gluten [GLUTEN] Allergy Unknown UNKNOWN Verified 05/01/24 08:18 mushroom Allergy Unknown UNKNOWN Verified 05/01/24 08:18 Home Medications ?Medication ?Instructions ?Recorded ?Confirmed ?Last Taken ?Type atorvastatin 20 mg tablet 20 mg PO DAILY 08/22/21 04/26/24 Unknown History cyclobenzaprine 10 mg tablet 10 mg PO BID PRN Muscle Spasm 08/22/21 04/26/24 Unknown History levothyroxine 75 mcg tablet 75 mcg PO DAILY 08/22/21 04/26/24 05/01/24 06:00 History metoprolol succinate 100 mg 100 mg PO DAILY 08/22/21 04/26/24 05/01/24 06:00 History tablet,extended release 24 hr omeprazole 20 mg capsule,delayed 20 mg PO DAILY 08/22/21 04/26/24 05/01/24 06:00 History release ropinirole 0.25 mg tablet 0.25 mg PO BID 08/22/21 04/26/24 Unknown History meclizine 25 mg tablet 25 mg PO TID PRN Dizziness 04/07/23 04/26/24 05/01/24 06:00 History ondansetron 4 mg disintegrating 4 mg PO Q8-10H PRN Nausea 04/07/23 04/26/24 05/01/24 06:00 History tablet amlodipine 10 mg tablet 10 mg PO DAILY 04/26/24 04/26/24 05/01/24 06:00 History ascorbic acid (vitamin C) 250 mg 250 mg PO DAILY 04/26/24 04/26/24 Unknown History tablet aspirin 81 mg tablet,delayed 81 mg PO DAILY 04/26/24 04/26/24 Unknown History release calcium 600 mg (as 1 tab PO DAILY 04/26/24 04/26/24 Unknown History carbonate)-vitamin D3 5 mcg (200 unit) tablet cholecalciferol (vitamin D3) 10 10 mcg PO DAILY 04/26/24 04/26/24 Unknown History mcg (400 unit) tablet cyanocobalamin (vitamin B-12) 1,000 mcg PO DAILY 04/26/24 04/26/24 Unknown History 1,000 mcg tablet dextromethorphan-guaifenesin 20 10 ml PO Q6-8H PRN Cough 04/26/24 04/26/24 Unknown History mg-200 mg/10 mL oral liquid in packet lidocaine 5 % topical patch 1 patch topical DAILY 04/26/24 04/26/24 Unknown History multivitamin 1 tab PO DAILY 04/26/24 04/26/24 Unknown History spironolactone 25 mg tablet 50 mg PO DAILY 04/26/24 04/26/24 Unknown History tolterodine 4 mg capsule,extended 4 mg PO DAILY 04/26/24 04/26/24 05/01/24 06:00 History release 24 hr zonisamide 100 mg capsule 100 mg PO BID PRN Nausea 04/26/24 04/26/24 Unknown History Exam Height,Weight and Vital Signs: Height 5 ft 4 in Weight 83.461 kg Assessment and Plan Assessment Anesthesia Assessment: Chart Reviewed Documented by User: Junie Solis MD 05/01/24 09:07 [facility] Past Medical History Medical History Osteopenia Glaucoma Osteoarthritis CKD (chronic kidney disease) stage 3, GFR 30-59 ml/min Vitamin D deficiency Vitamin B12 deficiency Shoulder pain, left Back pain Anxiety LOC (loss of consciousness) Bilateral leg edema Chest pain Dyspnea RLS (restless legs syndrome) Depression Presence of implantable pulmonary artery pressure and heart rate monitoring system Right knee injury Right shoulder injury Femur fracture, right Femur fracture, left delivery delivered Migraine Restless Kidney disease Heart murmur Overactive bladder Overactive adult syndrome Thyroid disease Hyperlipidemia Hypertension Family History Family history of problems with anesthesia: No Surgical History Surgical History History of surgery History of Problems with Anesthesia: No Social History Social History Alcohol intake: never Patient Tobacco Use Status: Never used Tobacco Use of substances other than those prescribed or required for medical reasons: No Substance Use Type: Marijuana Advance Directives: Yes Advance Directives Information Provided: No Advance Directives on File: Yes Advance Directives Date on File: 09/10/20 Recently lost weight without trying: No Eating poorly because of decreased appetite: No Nutrition Risks: No Nutritional Risk Patient : No : No Meds Allergies Allergy/AdvReac Type Severity Reaction Status Date / Time gluten [GLUTEN] Allergy Unknown UNKNOWN Verified 05/01/24 08:18 mushroom Allergy Unknown UNKNOWN Verified 05/01/24 08:18 Home Medications ?Medication ?Instructions ?Recorded ?Confirmed ?Last Taken ?Type atorvastatin 20 mg tablet 20 mg PO DAILY 08/22/21 04/26/24 Unknown History cyclobenzaprine 10 mg tablet 10 mg PO BID PRN Muscle Spasm 08/22/21 04/26/24 Unknown History levothyroxine 75 mcg tablet 75 mcg PO DAILY 08/22/21 04/26/24 05/01/24 06:00 History metoprolol succinate 100 mg 100 mg PO DAILY 08/22/21 04/26/24 05/01/24 06:00 History tablet,extended release 24 hr omeprazole 20 mg capsule,delayed 20 mg PO DAILY 08/22/21 04/26/24 05/01/24 06:00 History release ropinirole 0.25 mg tablet 0.25 mg PO BID 08/22/21 04/26/24 Unknown History meclizine 25 mg tablet 25 mg PO TID PRN Dizziness 04/07/23 04/26/24 05/01/24 06:00 History ondansetron 4 mg disintegrating 4 mg PO Q8-10H PRN Nausea 04/07/23 04/26/24 05/01/24 06:00 History tablet amlodipine 10 mg tablet 10 mg PO DAILY 04/26/24 04/26/24 05/01/24 06:00 History ascorbic acid (vitamin C) 250 mg 250 mg PO DAILY 04/26/24 04/26/24 Unknown History tablet aspirin 81 mg tablet,delayed 81 mg PO DAILY 04/26/24 04/26/24 Unknown History release calcium 600 mg (as 1 tab PO DAILY 04/26/24 04/26/24 Unknown History carbonate)-vitamin D3 5 mcg (200 unit) tablet cholecalciferol (vitamin D3) 10 10 mcg PO DAILY 04/26/24 04/26/24 Unknown History mcg (400 unit) tablet cyanocobalamin (vitamin B-12) 1,000 mcg PO DAILY 04/26/24 04/26/24 Unknown History 1,000 mcg tablet dextromethorphan-guaifenesin 20 10 ml PO Q6-8H PRN Cough 04/26/24 04/26/24 Unknown History mg-200 mg/10 mL oral liquid in packet lidocaine 5 % topical patch 1 patch topical DAILY 04/26/24 04/26/24 Unknown History multivitamin 1 tab PO DAILY 04/26/24 04/26/24 Unknown History spironolactone 25 mg tablet 50 mg PO DAILY 04/26/24 04/26/24 Unknown History tolterodine 4 mg capsule,extended 4 mg PO DAILY 11/04/26/24 05/01/24 06:00 History release 24 hr zonisamide 100 mg capsule 100 mg PO BID PRN Nausea 04/26/24 04/26/24 Unknown History Exam Airway Heart: rrr Lungs: cta Assessment and Plan Assessment Anesthesia Assessment: Anesthesia Plan Discussed Final Anesthetic Review Family History of Problems with Anesthesia: No History of Problems with Anesthesia: No NPO: Yes ASA Class: III Final Preanesthetic Review: No Changes in Pt Med Stat, Meds/Allgs Chart Reviewed, Consent Obtained/Reviewed and Anes Risks/Benef Reviewed Patient Risk: Intermediate Procedure Risk: Low Anesthetic Plan Anesthetic Plan: MAC: Disposition: Standard PACU
[2024-05-01] MEDS: Tetracaine HCl/PF 0.5% Oph Sol 4 ML DROPS 1 DROP EYE-RIGHT (08:23)
[2024-05-01] MEDS: Cyclopentolate 1 % Ophth Sol 2 ML DRPBTL 1 DROP EYE-RIGHT ×3 (08:26→08:37)
[2024-05-01] MEDS: Tropicamide 1 % Ophth Sol 3 ML BTL 1 DROP EYE-RIGHT ×3 (08:28→08:38)
[2024-05-01] MEDS: Ketorolac Tromethamine 0.5% Op 10 ML DROPS 1 DROP EYE-RIGHT ×3 (08:30→08:39)
[2024-05-01] MEDS: Phenylephrine HCL 2.5% Oph SoL 2 ML BOTTLE 1 DROP EYE-RIGHT ×3 (08:31→08:40)
[2024-05-01] MEDS: Lactated Ringers 500 ML 50 ML IV (08:33)
[2024-05-01 08:36] VITALS: BP 139/50; PULSE 58; RESP 15; TEMP 37; O2SAT 97
--- NOTE | 2024-05-01 09:11 | MHC.SHP ---
Pre-Procedural Eval Section A - 24 Hr Update-Section A only Date of Service: 05/01/24 The patient is an INPATIENT: No Changes since office visit: No Cold of Flu in the past 2 weeks, No New Medical Problems, No Changes in Medication and No Patient answered all questions The patient has been examined within 24 hours of the surgical procedure. The History & Physical has been completed within 30 days and I have reviewed it.: Yes Section B - Complete if H&P > 30 days Chief Complaint: Age-related nuclear cataract, right eye Allergies: Allergies Allergy/AdvReac Type Severity Reaction Status Date / Time gluten [GLUTEN] Allergy Unknown UNKNOWN Verified 05/01/24 08:18 mushroom Allergy Unknown UNKNOWN Verified 05/01/24 08:18 Plan Diagnosis/Plan: Unchanged I have reviewed the history and physical and performed a pertinent physical examination on my patient. No changes have occurred unless specified. Time Spent With Patient Time: Total time managing care of this patient today ____ minutes.
--- NOTE | 2024-05-01 09:12 | HO.PNOPHT ---
Ophthalmology Procedure Procedure Date of Service: 05/01/24 Ophthalmology Viscoelastic: Healon Duet Dual Pack Pro Ophthalmology Lenses: IOL Acrysof MP - [id number] (26.5) Procedure Notes: PREOPERATIVE DIAGNOSIS: Decreased visual acuity right eye secondary to cataract POSTOPERATIVE DIAGNOSIS: Same PROCEDURE: Right cataract extraction with intraocular lens insertion SURGEON: Jesse Santizo M.D. ANESTHESIA: Topical/MAC ESTIMATED BLOOD LOSS: None COMPLICATIONS: synichia, poor dilation After obtaining informed consent, the patient was brought to the operating room suite and placed in the supine position. After adequate sedation per anesthesia, topical drops of Tetracaine were given to the right eye. The eye was then prepped and draped in the usual sterile fashion. The operating room microscope was then positioned over the operative eye and a lid speculum placed. A paracentesis was created. Viscoelastic was then instilled into the anterior chamber with synichialysis and placement of Malyugin ring. A three plane incision was then created temporally, utilizing a 2.85 mm keratome. Capsulotomy forceps were then utilized to create a circular tear capsulotomy. Hydrodissection and hydrodelineation were carried out until adequate mobilization of the nucleus occurred. Phacoemulsification was then utilized to remove the dense central nucleus followed by removal of the cortical material utilizing the automated aspiration irrigation unit. Viscoelastic was instilled into the posterior capsular bag followed by placement of a posterior chamber intraocular lens without difficulty. The Malyugin ring was removed folloed by the residual Viscoelastic removed utilizing the automated IA machine. The wound was checked and found to be watertight. The patient tolerated the procedure well and the lid speculum was removed. Intracameral injection of Vigamox 0.1 mL followed by a subtenon injection of Kenalog-40 0.2 mL were administered. The patient will be seen in the a.m.
[2024-05-01 09:45] VITALS: BP 140/68; PULSE 57; RESP 16; TEMP 36.1; O2SAT 99
[2024-05-01 10:00] VITALS: BP 128/50; PULSE 62; RESP 20; TEMP 36.1; O2SAT 98
== END 2024-05-01 10:03 | disposition home or self-care (01) ==
PROVIDERS: PCP Physician Assistant Medical; Visit Provider Ophthalmology
PROC: (CPT 66985; principal; 2024-05-01 09:30)
DX: H25.11 Age-related nuclear cataract, right eye (principal); H59.88 Other intraoperative complications of eye and adnexa, not elsewhere classified; Y84.8 Other medical procedures as the cause of abnormal reaction of the patient, or of later complication, without mention of misadventure at the time of the procedure; H57.00 Unspecified anomaly of pupillary function; H21.51 Anterior synechiae (iris); H54.7 Unspecified visual loss
CPT/HCPCS: 66982; J2003; J2250; J3301; V2630

== ENCOUNTER 2024-05-09 22:33 | Emergency (ER) | payer OTHER, SELFPAY ==
--- NOTE | ~2024-05-09 | XR_ITS ---
EXAMINATION: XR KNEE, RIGHT CLINICAL INFORMATION: Pain COMPARISON: X-ray dated November 28, 2019 TECHNIQUE: Four views of the right knee. FINDINGS: No acute cortical disruption or malalignment. Joint space narrowing involving lateral and to a lesser extent medial compartment. No suprapatellar bursa joint effusion. No lytic or blastic lesions. XR/XR knee RT 4V IMPRESSION: No acute fracture or dislocation. Bicompartmental osteoarthrosis. Electronically signed by: Jake Galeano MD 05/10/2024 07:21 AM [facility]
--- NOTE | ~2024-05-09 | US_ITS ---
EXAMINATION: US TRIPLEX LOWER EXTREMITY, RIGHT CLINICAL INFORMATION: Right lower extremity pain. COMPARISON: None available. TECHNIQUE: Color-flow triplex imaging with spectral analysis and compression Doppler were performed on the right lower extremity. FINDINGS: Respiratory variation, normal compression and augmented flow are noted throughout the right lower extremity. The visualized common femoral vein, superficial femoral vein, profunda femoral vein, popliteal vein and midcalf peroneal and posterior tibial venous segments show no evidence of deep venous thrombosis. There is no Lawson's cyst. US/US venous duplex LE RT IMPRESSION: No evidence of deep venous thrombosis involving the right lower extremity. Electronically signed by: Ash Alfonso MD 05/10/2024 04:23 AM [facility]
[2024-05-09 22:44] VITALS: BP 153/53; BP 240/80; PULSE 81; PULSE 885; RESP 14; TEMP 36.8; O2SAT 96; O2SAT 99; BMI 30.9
[2024-05-10 00:10] VITALS: BP 150/53; PULSE 77; RESP 17; TEMP 36.4; O2SAT 96
--- NOTE | 2024-05-10 01:10 | ED_ITS ---
HPI - Extremity Injury (Lower) General Chief Complaint: Extremity Injury, Lower Stated Complaint: knee pain Time Seen by Provider: 05/10/24 01:00 Source: patient Mode of arrival: ambulatory Limitations: no limitations History of Present Illness ED Provider: Dr. Rivera Mcclellan HPI Narrative: 69-year-old female with a history of hypertension, edema, chronic kidney disease who presents emergency department for evaluation of sudden onset of right knee and right calf pain that occurred at 18:30 hours. Patient denies any injury or trauma. She states that the pain came on suddenly. She describes the pain is a sharp achiness which is 10/10. This is a 1st episode of this type of pain. She was not noticed any swelling over lower extremities. She was not gone on any long trips recently. Related Data Home Medications ?Medication ?Instructions ?Recorded ?Confirmed atorvastatin 20 mg tablet 20 mg PO DAILY 08/22/21 04/26/24 cyclobenzaprine 10 mg tablet 10 mg PO BID PRN Muscle Spasm 08/22/21 04/26/24 levothyroxine 75 mcg tablet 75 mcg PO DAILY 08/22/21 04/26/24 metoprolol succinate 100 mg 100 mg PO DAILY 08/22/21 04/26/24 tablet,extended release 24 hr omeprazole 20 mg capsule,delayed 20 mg PO DAILY 08/22/21 04/26/24 release ropinirole 0.25 mg tablet 0.25 mg PO BID 08/22/21 04/26/24 meclizine 25 mg tablet 25 mg PO TID PRN Dizziness 04/07/23 04/26/24 ondansetron 4 mg disintegrating 4 mg PO Q8-10H PRN Nausea 04/07/23 04/26/24 tablet amlodipine 10 mg tablet 10 mg PO DAILY 04/26/24 04/26/24 ascorbic acid (vitamin C) 250 mg 250 mg PO DAILY 04/26/24 04/26/24 tablet aspirin 81 mg tablet,delayed 81 mg PO DAILY 04/26/24 04/26/24 release calcium 600 mg (as 1 tab PO DAILY 04/26/24 04/26/24 carbonate)-vitamin D3 5 mcg (200 unit) tablet cholecalciferol (vitamin D3) 10 10 mcg PO DAILY 04/26/24 04/26/24 mcg (400 unit) tablet cyanocobalamin (vitamin B-12) 1,000 mcg PO DAILY 04/26/24 04/26/24 1,000 mcg tablet dextromethorphan-guaifenesin 20 10 ml PO Q6-8H PRN Cough 04/26/24 04/26/24 mg-200 mg/10 mL oral liquid in packet lidocaine 5 % topical patch 1 patch topical DAILY 04/26/24 04/26/24 multivitamin 1 tab PO DAILY 04/26/24 04/26/24 spironolactone 25 mg tablet 50 mg PO DAILY 04/26/24 04/26/24 tolterodine 4 mg capsule,extended 4 mg PO DAILY 04/26/24 04/26/24 release 24 hr zonisamide 100 mg capsule 100 mg PO BID PRN Nausea 04/26/24 04/26/24 Previous Rx's ?Medication ?Instructions ?Recorded albuterol sulfate 90 mcg/actuation 2 puff inhalation Q4-6H PRN 01/08/24 aerosol inhaler shortness of breath or wheezing #8.5 grams acetaminophen 300 mg-codeine 30 mg 1 tab PO Q4H PRN pain #14 tabs 05/10/24 tablet Allergies Allergy/AdvReac Type Severity Reaction Status Date / Time gluten [GLUTEN] Allergy Unknown UNKNOWN Verified 05/09/24 22:46 mushroom Allergy Unknown UNKNOWN Verified 05/09/24 22:46 Review of Systems 2 Review of Systems: Yes all other systems are reviewed and are negative PMFSH Past Medical History Medical History Osteopenia Glaucoma Osteoarthritis CKD (chronic kidney disease) stage 3, GFR 30-59 ml/min Vitamin D deficiency Vitamin B12 deficiency Shoulder pain, left Back pain Anxiety LOC (loss of consciousness) Bilateral leg edema Chest pain Dyspnea RLS (restless legs syndrome) Depression Presence of implantable pulmonary artery pressure and heart rate monitoring system Right knee injury Right shoulder injury Femur fracture, right Femur fracture, left delivery delivered Migraine Restless Kidney disease Heart murmur Overactive bladder Overactive adult syndrome Thyroid disease Hyperlipidemia Hypertension Surgical History History of surgery Social History Social History Alcohol intake: never Patient Tobacco Use Status: Never used Tobacco Smoked in Last 30 Days: No Use of substances other than those prescribed or required for medical reasons: Yes Substance Use Type: Other Substance Use Type Other:: vape pen Substance Use Frequency: Socially Advance Directives: Yes Advance Directives on File: Yes Advance Directives Date on File: 09/10/20 Do you have a plan to hurt others: No Plan Physical Exam 2 Vital Signs: Vital Signs: Last Vital Signs Temp 97.5 F 05/10/24 00:10 Pulse 77 05/10/24 00:10 Resp 17 05/10/24 00:10 BP 150/53 H 05/10/24 00:10 Pulse Ox 96 05/10/24 00:10 O2 Del Method Room Air 05/10/24 00:10 BMI result Body Mass Index 30.9 Vital signs revealed an elevated blood pressure of 150/53, otherwise unremarkable Exam: General: Awake, alert in no distress Extremities: There is no erythema or increased warmth to the skin of the lower extremities, there is no joint effusion or tenderness with palpation over the right knee joint. Patient has full range of motion of her knee with no discomfort. The patient does have tenderness palpation of the right popliteal fossa and right calf. Psych: Pleasant, cooperative Medications Administered Discontinued Medications Generic Name Dose Route Start Last Admin Trade Name Freq PRN Reason Stop Dose Admin Diphenhydramine HCl 25 mg 05/10/24 01:11 05/10/24 01:35 Diphenhydramine Hcl 50 Mg/Ml Vial IVPUSH 05/10/24 01:12 25 mg ONCE STA Administration Hydromorphone HCl 0.5 mg 05/10/24 01:11 05/10/24 01:33 Hydromorphone Hcl 1 Mg/Ml Syringe IVPUSH 05/10/24 01:12 0.5 mg ONCE STA Administration Protocol Medical Decision Making Medical Decision Making MDM Narrative: 69-year-old female with a history of hypertension, edema, chronic kidney disease who presents emergency department for evaluation of sudden onset of right knee and right calf pain that occurred at 18:30 hours. Patient denies any injury or trauma. She states that the pain came on suddenly. She describes the pain is a sharp achiness which is 10/10. This is a 1st episode of this type of pain. She was not noticed any swelling over lower extremities. She was not gone on any long trips recently. Vital signs revealed an elevated blood pressure otherwise unremarkable. Exam did reveal tenderness palpation of the right popliteal fossa and right calf. There is no joint effusion or increased erythema or warmth to the right lower extremity. Differential diagnosis: ?Includes but is not limited to osteoarthritis, DVT, Lawson's cyst, septic arthritis, inflammatory arthritis Following evaluation was ordered: CBC, CMP, CRP, ESR, magnesium, PT/INR, PTT, x-ray right knee, duplex ultrasound right lower extremity Patient was initially treated with the following: Dilaudid 0.5 mg IV, Benadryl 50 mg IV Course: 02:10 Start physician observation My interpretation patient's laboratory evaluation is as follows: Elevated WBC 90639. Elevated glucose 122. ESR was normal at 12. CRP was normal at 0.2 Duplex ultrasound did not reveal Lawson's cyst or DVT. The x-ray of the patient was as needed not reveal any acute fractures consistent with arthritic changes. Patient's pain improved from 10/10 to 7/10 after the 1st dose of Dilaudid therefore she was ordered to get a 2nd dose of Dilaudid 1 mg IV. The patient will be kept in the emergency department for a case management and physical therapy consult. Patient states that Tylenol with codeine it has helped in the past therefore I ordered Tylenol with codeine #3 1 pill every 4 hours as needed for pain. At the end of my shift the patient's care was turned over to my colleague, Dr. Nela Aldridge. Admission/Observation Consideration of admission/observation: Escalation of care including admission/observation considered (Yes) Lab Data MDM Lab Attestation statement: I reviewed the patient's lab results. 05/10/24 01:26 05/10/24 01:26 Labs: Lab Results 05/10/24 Range/Units 01:26 WBC 12.4 H (4.8-10.8) X10*3/uL RBC 4.28 (4.20-5.50) X10*6/uL Hgb 13.2 (12.0-16.0) g/dl Hct 39.4 (37.0-47.0) % MCV 92.1 (80.0-98.0) fL MCH 30.8 (27.0-33.0) pg MCHC 33.5 (31.0-35.0) g/dl RDW 13.6 (11.0-16.0) % Plt Count 191 (160-400) X10*3/uL MPV 10.5 (9.4-12.3) fL Immature Gran % (Auto) 0.5 H (0.0-0.4) % Neut % (Auto) 80.0 H (45-73) % Lymph % (Auto) 10.5 L (20-40) % Garland % (Auto) 6.9 (2-11) % Eos % (Auto) 1.5 (0-4) % Baso % (Auto) 0.6 (0-2) % Lymph # (Auto) 1.3 (1.2-4.9) X10*3/uL Garland # (Auto) 0.9 (0.1-1.2) X10*3/uL Eos # (Auto) 0.2 (0.0-0.4) X10*3/uL Baso # (Auto) 0.1 (0.0-0.2) X10*3/uL Abs Immat Gran (auto) 0.06 H (0.00-0.03) X10*3/uL Absolute Neuts (auto) 9.9 H (2.0-8.3) x10*3/uL Absolute Nucleated RBC 0.000 (0.0-0.012) X10*3/uL Nucleated RBC % (auto) 0.0 (0.0-0.2) /100WBC ESR 12 (0-20) MM/HR PT 11.4 (10.9-12.4) SEC INR 1.0 (0.9-1.1) APTT 32.5 (26.0-36.8) SEC Sodium 141 (135-145) mmol/L Potassium 3.9 D (3.3-5.1) mmol/L Chloride 110 H (96-108) mmol/L Carbon Dioxide 22 (22-29) mmol/L Anion Gap 13 (12-20) BUN 20 H (9-16) mg/dL Creatinine 1.01 (0.5-1.4) mg/dL Estim Creat Clear Calc 55.8 Estimated GFR 55 Random Glucose 122 H (60-115) mg/dL Calcium 9.0 (8.4-10.2) mg/dL Magnesium 2.3 (1.6-2.6) mg/dL Total Bilirubin 0.4 (0.0-1.0) mg/dL AST 24 (5-31) U/L ALT 15 (0-31) U/L Alkaline Phosphatase 100 (39-117) U/L C-Reactive Protein 0.20 (< or = 0.50) mg/dL Total Protein 6.5 (6.5-8.0) g/dL Albumin 3.6 (3.5-5.0) g/dL Independent Interpretation I performed an independent interpretation of an: Plain X-Ray Interpretation: My independent interpretation of the patient's four view knee x-ray is as follows: No acute fracture, arthritic changes only Radiology Impression Discussion of test interpretation with radiology: I have reviewed the radiologist's reading. Discharge Plan Discharge Clinical Impression: Acute pain of right knee, Right calf pain Patient Disposition: Still a Patient Additional Instructions: Your blood work was unremarkable. I did not see any broken bones on the x-rays of your knee. You do have arthritis of knee. The ultrasound of your leg did not reveal any blood clot which is reassuring. Take Tylenol with codeine#3, 1 pill every 4 hours as needed for pain. Follow-up with your doctor in 2 days. Please return to the emergency department if your symptoms get worse or if you develop any symptoms that are concerning to you. Prescriptions: New acetaminophen-codeine 300-30 mg tablet 1 tab PO Q4H PRN (Reason: pain) Qty: 14 0RF No Action albuterol sulfate 90 mcg/actuation HFA aerosol inhaler 2 puff inhalation Q4-6H PRN (Reason: shortness of breath or wheezing) Qty: 8.5 0RF amlodipine 10 mg tablet 10 mg PO DAILY aspirin 81 mg Tablet,Delayed Release (Dr/Ec) 81 mg PO DAILY ascorbic acid (vitamin C) 250 mg Tablet 250 mg PO DAILY multivitamin Tablet 1 tab PO DAILY tolterodine 4 mg capsule,extended release 24hr 4 mg PO DAILY cyanocobalamin (vitamin B-12) 1,000 mcg Tablet 1,000 mcg PO DAILY calcium carbonate-vitamin D3 600 mg-5 mcg (200 unit) Tablet 1 tab PO DAILY zonisamide 100 mg capsule 100 mg PO BID PRN (Reason: Nausea) lidocaine 5 % adhesive patch,medicated 1 patch topical DAILY cholecalciferol (vitamin D3) 10 mcg (400 unit) Tablet 10 mcg PO DAILY dextromethorphan-guaifenesin 20-200 mg/10 mL Liquid In Packet 10 ml PO Q6-8H PRN (Reason: Cough) spironolactone 25 mg tablet 50 mg PO DAILY omeprazole 20 mg capsule,delayed release(DR/EC) 20 mg PO DAILY ropinirole 0.25 mg tablet 0.25 mg PO BID levothyroxine 75 mcg tablet 75 mcg PO DAILY atorvastatin 20 mg tablet 20 mg PO DAILY cyclobenzaprine 10 mg tablet 10 mg PO BID PRN (Reason: Muscle Spasm) metoprolol succinate 100 mg tablet extended release 24 hr 100 mg PO DAILY ondansetron 4 mg tablet,disintegrating 4 mg PO Q8-10H PRN (Reason: Nausea) meclizine 25 mg tablet 25 mg PO TID PRN (Reason: Dizziness) Print Language: Lithuanian
[2024-05-10 01:30] LABS: MANUAL DIFF FLAG NO
[2024-05-10] MEDS: HYDROmorphone HCl 1 MG/ML SYRINGE 0.5 MG IVPUSH (01:33)
[2024-05-10] MEDS: diphenhydrAMINE HCL 50 MG/ML VIAL 25 MG IVPUSH (01:35)
[2024-05-10 01:37] LABS: Basophils Absolute Auto 0.1 X10*3/uL (0.0-0.2); Basophils Percent Auto 0.6 % (0-2); Eosinophils Absolute Auto 0.2 X10*3/uL (0.0-0.4); Eosinophils Percent Auto 1.5 % (0-4); Hematocrit 39.4 % (37.0-47.0); Hemoglobin 13.2 g/dl (12.0-16.0); Imm Gran Abs Auto 0.06 X10*3/uL (0.00-0.03); Imm Gran Pct Auto 0.5 % (0.0-0.4); Lymphocytes Absolute Auto 1.3 X10*3/uL (1.2-4.9); Lymphocytes Percent Auto 10.5 % (20-40); Mean Corpuscular HGB Conc 33.5 g/dl (31.0-35.0); Mean Corpuscular Hemoglobin 30.8 pg (27.0-33.0); Mean Corpuscular Volume 92.1 fL (80.0-98.0); Mean Platelet Volume 10.5 fL (9.4-12.3); Monocytes Absolute Auto 0.9 X10*3/uL (0.1-1.2); Monocytes Percent Auto 6.9 % (2-11); Neutrophils Absolute Auto 9.9 x10*3/uL (2.0-8.3); Platelet Count 191 X10*3/uL (160-400); Red Blood Count 4.28 X10*6/uL (4.20-5.50); Red Cell Distribution Width 13.6 % (11.0-16.0); White Blood Count 12.4 X10*3/uL (4.8-10.8)
--- NOTE | 2024-05-10 01:38 | PC.NURSE ---
medicater per aug.
[2024-05-10 01:44] LABS: Prothrombin Time 11.4 SEC (10.9-12.4)
[2024-05-10 01:47] LABS: Partial Thromboplastin Time 32.5 SEC (26.0-36.8)
[2024-05-10 01:54] LABS: Alanine Aminotransferase 15 U/L (0-31); Albumin Level 3.6 g/dL (3.5-5.0); Alkaline Phosphatase 100 U/L (39-117); Anion Gap 13 (12-20); Aspartate Amino Transferase 24 U/L (5-31); Bilirubin Total 0.4 mg/dL (0.0-1.0); Blood Urea Nitrogen 20 mg/dL (9-16); Carbon Dioxide 22 mmol/L (22-29); Chloride 110 mmol/L (96-108); Creatinine Clr Calc Pharmacy 55.8; Estimated Glomerular Filt Rate 55; Glucose Random 122 mg/dL (60-115); Magnesium 2.3 mg/dL (1.6-2.6); Potassium 3.9 mmol/L (3.3-5.1); Sodium 141 mmol/L (135-145); Total Protein 6.5 g/dL (6.5-8.0)
--- NOTE | 2024-05-10 02:08 | PC.NURSE ---
pt back from [facility].
[2024-05-10 02:12] LABS: Erythrocyte Sedimentation Rate 12 MM/HR (0-20)
[2024-05-10] MEDS: Acetaminophen/Codeine 300-30mg Tablet 1 TAB PO (02:38)
[2024-05-10] MEDS: HYDROmorphone HCl 1 MG/ML SYRINGE IVPUSH (02:38)
[2024-05-10 02:40] VITALS: BP 156/58; PULSE 80; RESP 16; TEMP 36.8; O2SAT 94
--- NOTE | 2024-05-10 02:42 | PC.NURSE ---
vital taken, pt medicated per mar.
--- NOTE | 2024-05-10 04:35 | MHC.EDTECH ---
PATIENT WAS ABLE TO AMBULATE WITH WALKER TO BATHROOM WITH STEADY GATE.
[2024-05-10 06:21] VITALS: BP 153/57; PULSE 76; RESP 12; TEMP 36.5; O2SAT 95
--- NOTE | 2024-05-10 06:45 | PC.NURSE ---
assist pt with walker to the bathroom, no respiratory distress at this time, pt reports improvement ambulating this morning since last night.
[2024-05-10 07:34] VITALS: BP 153/57; PULSE 76; O2SAT 95
--- NOTE | 2024-05-10 08:16 | PC.NURSE ---
patient seen by physical therapy, recommending home with services, case management to book transport
--- NOTE | 2024-05-10 08:27 | MHC.CM.ED ---
Addendum entered by Elena Bernabe 05/10/24 08:31: Physical therapy is recommending a front wheeled walker. Dasha LONGORIA and Sirena from [facility] will be made aware of this. Original Note: Received case management consult overnight. Patient came to the ER due to knee pain. Work up essentially negative. Physical therapy eval completed. Home with services is recommended. Met with patient in regards to discharge planning. Patient lives with her sig other, ambulates independently and had no services prior to coming to the hospital. Patient wants her sig other to be her [employer]LECT[employer]EM[employer]. T/W informed patient she would need to speak to her [facility] home health care provider about [employer] services. Patient indicates she has never spoken to a home health care provider. Sirena, [facility] transitions of care nurse, will be made aware and asked to reach out to patient's home health care provider. PCP verfied. Copy of HCP verified to be on file. Patient agreeable to referral to [facility] for group home and physical therapy. Referral made via [facility]. Patient uses [facility]'s transportation service. Jose Miguel JOSEPH booked for 10am. Patient, Natan WONG and Dasha LONGORIA aware. Continue to monitor for d/c needs.
[2024-05-10 09:54] VITALS: BP 170/59; PULSE 79; RESP 20; TEMP 36.6; O2SAT 96
--- NOTE | 2024-05-10 10:00 | MHC.EDTECH ---
Patient refused Covid test.
[2024-05-10 10:40] VITALS: BP 170/59; PULSE 78; RESP 18; TEMP 36.6; O2SAT 99
== END 2024-05-10 10:41 | disposition home or self-care (01) ==
PROVIDERS: Emergency Provider Emergency Medicine Emergency Medical Services; PCP Physician Assistant Medical
DX: M25.561 Pain in right knee (principal); M79.662 Pain in left lower leg; R26.2 Difficulty in walking, not elsewhere classified; R60.0 Localized edema; Z79.899 Other long term (current) drug therapy
CPT/HCPCS: 36415; 73564; 80053; 83735; 85025; 85610; 85652; 85730; 86140; 93971; 96374; 96375; 96376; 97162; 99284; J1171; J1200

== ENCOUNTER → 2024-05-09 23:00 | Outpatient (BNV) | payer OTHER, SELFPAY | PROVIDERS: Emergency Provider Emergency Medicine Emergency Medical Services; PCP Physician Assistant Medical; Visit Provider Radiology Diagnostic Radiology | DX: M17.11 Unilateral primary osteoarthritis, right knee (principal) | CPT/HCPCS: 73564 ==

== ENCOUNTER 2024-05-15 07:00 | Day surgery (SDC) | payer OTHER, SELFPAY ==
[2024-04-26 11:52] VITALS: BMI 31.6
--- NOTE | 2024-05-12 09:07 | HO.ANESPROP2 ---
Documented by User: Francheska Moncada NP 05/12/24 09:08 HPI - Anesthesia Eval Consult details Narrative: 69yo F for Left Cataract Extraction IOL Insertion Right eye 05/01: Midaz 1 PMFSH Active Problems Active Problems: All Active Problems Edema (Acute) CKD (chronic kidney disease) (Acute) Hypertension (Acute) Past Medical History Medical History Osteopenia Glaucoma Osteoarthritis CKD (chronic kidney disease) stage 3, GFR 30-59 ml/min Vitamin D deficiency Vitamin B12 deficiency Shoulder pain, left Back pain Anxiety LOC (loss of consciousness) Bilateral leg edema Chest pain Dyspnea RLS (restless legs syndrome) Depression Presence of implantable pulmonary artery pressure and heart rate monitoring system Right knee injury Right shoulder injury Femur fracture, right Femur fracture, left delivery delivered Migraine Restless Kidney disease Heart murmur Overactive bladder Overactive adult syndrome Thyroid disease Hyperlipidemia Hypertension Family History Family history of problems with anesthesia: No Surgical History Surgical History History of surgery History of Problems with Anesthesia: No Social History Social History Alcohol intake: never Patient Tobacco Use Status: Never used Tobacco Use of substances other than those prescribed or required for medical reasons: No Substance Use Type: Other Advance Directives: Yes Advance Directives Information Provided: No Advance Directives on File: Yes Advance Directives Date on File: 09/10/20 Recently lost weight without trying: No Nutrition Risks: No Nutritional Risk Patient : No : No Meds Allergies Allergy/AdvReac Type Severity Reaction Status Date / Time gluten [GLUTEN] Allergy Unknown UNKNOWN Verified 05/09/24 22:46 mushroom Allergy Unknown UNKNOWN Verified 05/09/24 22:46 Home Medications ?Medication ?Instructions ?Recorded ?Confirmed ?Last Taken ?Type atorvastatin 20 mg tablet 20 mg PO DAILY 08/22/21 04/26/24 Unknown History cyclobenzaprine 10 mg tablet 10 mg PO BID PRN Muscle Spasm 08/22/21 04/26/24 Unknown History levothyroxine 75 mcg tablet 75 mcg PO DAILY 08/22/21 04/26/24 05/01/24 06:00 History metoprolol succinate 100 mg 100 mg PO DAILY 08/22/21 04/26/24 05/01/24 06:00 History tablet,extended release 24 hr omeprazole 20 mg capsule,delayed 20 mg PO DAILY 08/22/21 04/26/24 05/01/24 06:00 History release ropinirole 0.25 mg tablet 0.25 mg PO BID 08/22/21 04/26/24 Unknown History meclizine 25 mg tablet 25 mg PO TID PRN Dizziness 04/07/23 04/26/24 05/01/24 06:00 History ondansetron 4 mg disintegrating 4 mg PO Q8-10H PRN Nausea 04/07/23 04/26/24 05/01/24 06:00 History tablet amlodipine 10 mg tablet 10 mg PO DAILY 04/26/24 04/26/24 05/01/24 06:00 History ascorbic acid (vitamin C) 250 mg 250 mg PO DAILY 04/26/24 04/26/24 Unknown History tablet aspirin 81 mg tablet,delayed 81 mg PO DAILY 04/26/24 04/26/24 Unknown History release calcium 600 mg (as 1 tab PO DAILY 04/26/24 04/26/24 Unknown History carbonate)-vitamin D3 5 mcg (200 unit) tablet cholecalciferol (vitamin D3) 10 10 mcg PO DAILY 04/26/24 04/26/24 Unknown History mcg (400 unit) tablet cyanocobalamin (vitamin B-12) 1,000 mcg PO DAILY 04/26/24 04/26/24 Unknown History 1,000 mcg tablet dextromethorphan-guaifenesin 20 10 ml PO Q6-8H PRN Cough 04/26/24 04/26/24 Unknown History mg-200 mg/10 mL oral liquid in packet lidocaine 5 % topical patch 1 patch topical DAILY 04/26/24 04/26/24 Unknown History multivitamin 1 tab PO DAILY 04/26/24 04/26/24 Unknown History spironolactone 25 mg tablet 50 mg PO DAILY 04/26/24 04/26/24 Unknown History tolterodine 4 mg capsule,extended 4 mg PO DAILY 04/26/24 04/26/24 05/01/24 06:00 History release 24 hr zonisamide 100 mg capsule 100 mg PO BID PRN Nausea 04/26/24 04/26/24 Unknown History Exam Height,Weight and Vital Signs: Height 5 ft 4 in Weight 83.461 kg Assessment and Plan Assessment Anesthesia Assessment: Chart Reviewed Final Anesthetic Review Family History of Problems with Anesthesia: No History of Problems with Anesthesia: No Documented by User: Patsy Sawyer MD 05/15/24 08:58 PMFSH Past Medical History Medical History Osteopenia Glaucoma Osteoarthritis CKD (chronic kidney disease) stage 3, GFR 30-59 ml/min Vitamin D deficiency Vitamin B12 deficiency Shoulder pain, left Back pain Anxiety LOC (loss of consciousness) Bilateral leg edema Chest pain Dyspnea RLS (restless legs syndrome) Depression Presence of implantable pulmonary artery pressure and heart rate monitoring system Right knee injury Right shoulder injury Femur fracture, right Femur fracture, left delivery delivered Migraine Restless Kidney disease Heart murmur Overactive bladder Overactive adult syndrome Thyroid disease Hyperlipidemia Hypertension Surgical History Surgical History History of surgery Social History Social History Alcohol intake: never Patient Tobacco Use Status: Never used Tobacco Use of substances other than those prescribed or required for medical reasons: No Substance Use Type: Other Advance Directives: Yes Advance Directives Information Provided: No Advance Directives on File: Yes Advance Directives Date on File: 09/10/20 Recently lost weight without trying: No Nutrition Risks: No Nutritional Risk Patient : No : No Meds Allergies Allergy/AdvReac Type Severity Reaction Status Date / Time gluten [GLUTEN] Allergy Unknown UNKNOWN Verified 05/09/24 22:46 mushroom Allergy Unknown UNKNOWN Verified 05/09/24 22:46 Home Medications ?Medication ?Instructions ?Recorded ?Confirmed ?Last Taken ?Type atorvastatin 20 mg tablet 20 mg PO DAILY 08/22/21 04/26/24 Unknown History cyclobenzaprine 10 mg tablet 10 mg PO BID PRN Muscle Spasm 08/22/21 04/26/24 Unknown History levothyroxine 75 mcg tablet 75 mcg PO DAILY 08/22/21 04/26/24 05/01/24 06:00 History metoprolol succinate 100 mg 100 mg PO DAILY 08/22/21 04/26/24 05/01/24 06:00 History tablet,extended release 24 hr omeprazole 20 mg capsule,delayed 20 mg PO DAILY 08/22/21 04/26/24 05/01/24 06:00 History release ropinirole 0.25 mg tablet 0.25 mg PO BID 08/22/21 04/26/24 Unknown History meclizine 25 mg tablet 25 mg PO TID PRN Dizziness 04/07/23 04/26/24 05/01/24 06:00 History ondansetron 4 mg disintegrating 4 mg PO Q8-10H PRN Nausea 04/07/23 04/26/24 05/01/24 06:00 History tablet amlodipine 10 mg tablet 10 mg PO DAILY 04/26/24 04/26/24 05/01/24 06:00 History ascorbic acid (vitamin C) 250 mg 250 mg PO DAILY 04/26/24 04/26/24 Unknown History tablet aspirin 81 mg tablet,delayed 81 mg PO DAILY 04/26/24 04/26/24 Unknown History release calcium 600 mg (as 1 tab PO DAILY 04/26/24 04/26/24 Unknown History carbonate)-vitamin D3 5 mcg (200 unit) tablet cholecalciferol (vitamin D3) 10 10 mcg PO DAILY 04/26/24 04/26/24 Unknown History mcg (400 unit) tablet cyanocobalamin (vitamin B-12) 1,000 mcg PO DAILY 04/26/24 04/26/24 Unknown History 1,000 mcg tablet dextromethorphan-guaifenesin 20 10 ml PO Q6-8H PRN Cough 04/26/24 04/26/24 Unknown History mg-200 mg/10 mL oral liquid in packet lidocaine 5 % topical patch 1 patch topical DAILY 04/26/24 04/26/24 Unknown History multivitamin 1 tab PO DAILY 04/26/24 04/26/24 Unknown History spironolactone 25 mg tablet 50 mg PO DAILY 04/26/24 04/26/24 Unknown History tolterodine 4 mg capsule,extended 4 mg PO DAILY 04/26/24 04/26/24 05/01/24 06:00 History release 24 hr zonisamide 100 mg capsule 100 mg PO BID PRN Nausea 04/26/24 04/26/24 Unknown History Exam Airway Mallampati Class: II (edentulous) TM Dist: >3cm Neck ROM: Full Heart: rrr Lungs: cta Assessment and Plan Final Anesthetic Review NPO: Yes ASA Class: III Final Preanesthetic Review: No Changes in Pt Med Stat, Meds/Allgs Chart Reviewed and Consent Obtained/Reviewed Patient Risk: Intermediate Procedure Risk: Low Anesthetic Plan Anesthetic Plan: MAC: Disposition: Standard PACU
[2024-05-15 08:56] VITALS: BMI 30.9
[2024-05-15 09:15] VITALS: BP 148/73; PULSE 64; RESP 16; TEMP 36.9; O2SAT 98
[2024-05-15] MEDS: Tetracaine HCl/PF 0.5% Oph Sol 4 ML DROPS 1 DROP EYE-LEFT (09:21)
[2024-05-15] MEDS: Cyclopentolate 1 % Ophth Sol 2 ML DRPBTL 1 DROP EYE-LEFT ×3 (09:23→09:45)
[2024-05-15] MEDS: Tropicamide 1 % Ophth Sol 3 ML BTL 1 DROP EYE-LEFT ×3 (09:27→09:46)
[2024-05-15] MEDS: Ketorolac Tromethamine 0.5% Op 10 ML DROPS 1 DROP EYE-LEFT ×3 (09:28→09:48)
[2024-05-15] MEDS: Lactated Ringers 500 ML 50 ML IV (09:29)
[2024-05-15] MEDS: Phenylephrine HCL 2.5% Oph SoL 2 ML BOTTLE 1 DROP EYE-LEFT ×3 (09:30→09:51)
--- NOTE | 2024-05-15 09:50 | MHC.SHP ---
Pre-Procedural Eval Section A - 24 Hr Update-Section A only Date of Service: 05/15/24 The patient is an INPATIENT: No Changes since office visit: No Cold of Flu in the past 2 weeks, No New Medical Problems, No Changes in Medication and No Patient answered all questions The patient has been examined within 24 hours of the surgical procedure. The History & Physical has been completed within 30 days and I have reviewed it.: Yes Section B - Complete if H&P > 30 days Chief Complaint: Age-related nuclear cataract, left eye Allergies: Allergies Allergy/AdvReac Type Severity Reaction Status Date / Time gluten [GLUTEN] Allergy Unknown UNKNOWN Verified 05/15/24 09:06 mushroom Allergy Unknown UNKNOWN Verified 05/15/24 09:06 Plan Diagnosis/Plan: Unchanged I have reviewed the history and physical and performed a pertinent physical examination on my patient. No changes have occurred unless specified. Time Spent With Patient Time: Total time managing care of this patient today ____ minutes.
--- NOTE | 2024-05-15 09:50 | HO.PNOPHT ---
Ophthalmology Procedure Procedure Date of Service: 05/15/24 Ophthalmology Viscoelastic: Healon Duet Dual Pack Pro Ophthalmology Lenses: IOL Acrysof MP - [id number] (25.5) Procedure Notes: PREOPERATIVE DIAGNOSIS: Decreased visual acuity left eye secondary to cataract POSTOPERATIVE DIAGNOSIS: Same PROCEDURE: Left cataract extraction with intraocular lens insertion SURGEON: Jesse Santizo M.D. ANESTHESIA: Topical/MAC ESTIMATED BLOOD LOSS: None COMPLICATIONS: None After obtaining informed consent, the patient was brought to the operation room suite and placed in the supine position. After adequate sedation per anesthesia, topical drops of Tetracaine were given to the left eye. The eye was then prepped and draped in the usual sterile fashion. The operating room microscope was then positioned over the operative eye and a lid speculum placed. A paracentesis was created. Viscoelastic was then instilled into the anterior chamber. A three plane incision was then created temporally, utilizing a 2.85 mm keratome. Capsulotomy forceps were then utilized to create a circular tear capsulotomy. Hydrodissection and hydrodelineation were carried out until adequate mobilization of the nucleus occurred. Phacoemulsification was then utilized to remove the dense central nucleus followed by removal of the cortical material utilizing the automated aspiration irrigation unit. Viscoat elastic was instilled into the posterior capsular bag followed by placement of a posterior chamber intraocular lens without difficulty. The residual Viscoat elastic was then removed utilizing the automated IA machine. The wound was check and found to be watertight. The patient tolerated the procedure well and the lid speculum was removed. Intracameral injection of Vigamox 0.1 mL followed by a subtenon injection of Kenalog-40 0.2 mL were administered. The patient will be seen in the a.m.
[2024-05-15 10:21] VITALS: BP 186/66; PULSE 71; RESP 20; TEMP 36.8; O2SAT 99
== END 2024-05-15 10:29 | disposition home or self-care (01) ==
PROVIDERS: PCP Physician Assistant Medical; Visit Provider Ophthalmology
PROC: (CPT 66985; principal; 2024-05-15 10:00)
DX: H25.12 Age-related nuclear cataract, left eye (principal); H54.7 Unspecified visual loss; H40.213 Acute angle-closure glaucoma, bilateral; H53.022 Refractive amblyopia, left eye; I12.9 Hypertensive chronic kidney disease with stage 1 through stage 4 chronic kidney disease, or unspecified chronic kidney disease; N18.9 Chronic kidney disease, unspecified; R73.03 Prediabetes; E78.5 Hyperlipidemia, unspecified; E07.9 Disorder of thyroid, unspecified; Z79.82 Long term (current) use of aspirin; Z79.899 Other long term (current) drug therapy; Z66 Do not resuscitate
CPT/HCPCS: 66984; J2250; J3301; V2630

== ENCOUNTER 2024-05-16 15:42 | Outpatient (REF) | payer OTHER, SELFPAY ==
[2024-05-16 16:12] VITALS: BP 152/67; PULSE 58; RESP 20; TEMP 36.6; O2SAT 98; BMI 30.9
[2024-05-16 17:17] VITALS: BP 176/74; PULSE 57; RESP 20; TEMP 36.6; O2SAT 99
== END 2024-05-16 15:43 | disposition home or self-care (01) ==
LOC: HO.MS 15:42
PROVIDERS: PCP Physician Assistant Medical; Visit Provider Ophthalmology
PROC: (CPT 66821; principal; 2024-05-16 16:30)
DX: H26.492 Other secondary cataract, left eye (principal)
CPT/HCPCS: 66821

== ENCOUNTER 2024-06-08 10:16 | Outpatient (AMB) | payer OTHER, SELFPAY ==
--- NOTE | 2024-06-08 10:31 | HO.NEPHOV_ITS ---
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 Accompanied by: Self / Same As Patient Allergies gluten [GLUTEN] Allergy (Unknown, Verified 06/08/24 10:34) UNKNOWN mushroom Allergy (Unknown, Verified 06/08/24 10:34) UNKNOWN Medication List - Last Reconciled 06/08/24 by Manpreet Luke MD acetaminophen-codeine 300-30 mg 1 tab PO Q4H PRN albuterol sulfate 90 mcg/actuation 2 puffs inhalation Q4-6H PRN amlodipine 10 mg PO DAILY ascorbic acid (vitamin C) 250 mg PO DAILY aspirin 81 mg PO DAILY atorvastatin 20 mg PO DAILY calcium carbonate-vitamin D3 600 mg-5 mcg (200 unit) 1 tab PO DAILY cholecalciferol (vitamin D3) 10 mcg PO DAILY cyanocobalamin (vitamin B-12) 1,000 mcg PO DAILY cyclobenzaprine 10 mg PO BID PRN dextromethorphan-guaifenesin 20-200 mg/10 mL 10 mL PO Q6-8H PRN levothyroxine 75 mcg PO DAILY lidocaine 5% 1 patch topical DAILY meclizine 25 mg PO TID PRN metoprolol succinate ER 100 mg PO DAILY multivitamin 1 tab PO DAILY omeprazole 20 mg PO DAILY ondansetron 4 mg PO Q8-10H PRN ropinirole 0.25 mg PO BID spironolactone 50 mg PO DAILY tolterodine ER 4 mg PO DAILY walker As directed zonisamide 100 mg PO BID PRN HPI Comments Details: 67 year old female hx of htn, hld, hypothyroidism and CKD is here for follow-up Recently had cataract surgery. BP was elevated Spironolactone has been increased to 50 mg QD No specific complaints today. [facility] Medical History (Updated 05/11/24 @ 00:01 by Chela Baron) Osteopenia Glaucoma Osteoarthritis CKD (chronic kidney disease) stage 3, GFR 30-59 ml/min Vitamin D deficiency Vitamin B12 deficiency Shoulder pain, left Back pain Anxiety LOC (loss of consciousness) Bilateral leg edema Chest pain Dyspnea RLS (restless legs syndrome) Depression Presence of implantable pulmonary artery pressure and heart rate monitoring system Right knee injury Right shoulder injury Femur fracture, right Femur fracture, left delivery delivered Migraine Restless Kidney disease Heart murmur Overactive bladder Overactive adult syndrome Thyroid disease Hyperlipidemia Hypertension Surgical History (Updated 06/08/24 @ 10:34 by MELISSA Gerard) History of cataract surgery (~05/2024) History of surgery Social History Alcohol intake: never Patient Tobacco Use Status: Never used Tobacco Substance Use Type: Other Advance Directives Date on File: 09/10/20 Physical Exam Vital Signs: Last Vital Signs BP 138/64 06/08/24 10:32 BMI result Body Mass Index 31.6 Comfortable Neck supple no JVD. Lungs entry equal no rales. Heart S1-S2 heard no gallop or rub. Abdomen soft nontender. Neuro alert awake oriented. No asterixis. Extremities no edema. Results Reviewed Nephrology Results: Hgb 13.2 g/dl (12.0-16.0) 05/10/24 WBC 12.4 X10*3/uL (4.8-10.8) H 05/10/24 Plt Count 191 X10*3/uL (160-400) 05/10/24 Sodium 141 mmol/L (135-145) 05/10/24 Potassium 3.9 mmol/L (3.3-5.1) 05/10/24 Chloride 110 mmol/L (96-108) H 05/10/24 Carbon Dioxide 22 mmol/L (22-29) 05/10/24 BUN 20 mg/dL (9-16) H 05/10/24 Creatinine 1.01 mg/dL (0.5-1.4) 05/10/24 Calcium 9.0 mg/dL (8.4-10.2) 05/10/24 Urine Protein Negative mg/dL (Neg-Trace) 02/03/24 Urine Creatinine 142.87 mg/dL 02/03/24 Assessment & Plan Assessment & Plan (1) Hypertension: Code(s): I10 - Essential (primary) hypertension Category: Medical (2) CKD (chronic kidney disease): Code(s): N18.9 - Chronic kidney disease, unspecified Category: Medical (3) Edema: Code(s): R60.9 - Edema, unspecified Category: Medical Plan From a renal standpoint Lauren is doing well. Renal function is stable at baseline. Blood pressure is better controlled. Encouraged to stay on low-sodium diet. Continue with same dose of spironolactone. Will continue monitor renal function closely. Avoid nephrotoxins including NSAIDs. Orders: Orders 2 Basic Metabolic Panel 6 Months N18.9 - Chronic kidney disease, unspecified Coding Level of Care Code Est Pt Level 4 (25785) Diagnoses Hypertension I10 CKD (chronic kidney disease) N18.9 Edema R60.9
[2024-06-08 10:32] VITALS: BP 138/64; BMI 31.6
== END 2024-06-08 10:47 | disposition home or self-care (01) ==
PROVIDERS: PCP Physician Assistant Medical; Visit Provider Internal Medicine Hypertension Specialist
DX: I12.9 Hypertensive chronic kidney disease with stage 1 through stage 4 chronic kidney disease, or unspecified chronic kidney disease (principal); N18.9 Chronic kidney disease, unspecified; R60.9 Edema, unspecified
CPT/HCPCS: 99214

== ENCOUNTER → 2024-06-08 10:16 | Outpatient (BNVA) | payer OTHER, SELFPAY | PROVIDERS: PCP Physician Assistant Medical; Visit Provider Internal Medicine Hypertension Specialist | DX: I12.9 Hypertensive chronic kidney disease with stage 1 through stage 4 chronic kidney disease, or unspecified chronic kidney disease (principal); N18.9 Chronic kidney disease, unspecified; R60.9 Edema, unspecified | CPT/HCPCS: 99212 ==

== ENCOUNTER 2024-07-20 02:50 | Inpatient (IN) | payer OTHER, SELFPAY ==
[2024-07-20] VITALS (7 sets, daily range): BP systolic 109–141; BP diastolic 34–74; PULSE 54–63; RESP 16–20; TEMP 36.4–36.7; O2SAT 95–99; BMI 31.1; BMI 34.9
--- NOTE | ~2024-07-20 | XR_ITS ---
CLINICAL HISTORY: nausea and vomitting, r o obstruction 1 view abdomen Comparison: None Findings: No pneumoperitoneum or pneumatosis. Mild fecal retention throughout the colon. No abnormal calcifications. No acute fractures. Diffuse degenerative changes within the spine. IMPRESSION: Moderate fecal retention throughout the colon. No small bowel obstruction or free air. This document has been electronically signed by: Rainer Reynoso MD on 07/22/2024 10:59:18
--- NOTE | ~2024-07-20 | CT_ITS ---
EXAMINATION: CT ABDOMEN PELVIS WITH IV CONTRAST HISTORY: Lower abd pain COMPARISON: There are no prior studies for comparison. TECHNIQUE: CT scan of the abdomen and pelvis was performed following administration of 85 mL Omnipaque 350 using standard departmental protocol. Coronal and sagittal reformatted images were generated and reviewed. Oral contrast material was not administered at the request of the referring physician. This CT exam was performed with one or more of the following dose reduction techniques: automated exposure control, adjustment of the mA and/or kV according to patient size, use of iterative reconstruction technique. DLP: 792 mGy-cm FINDINGS: LOWER CHEST: There is subsegmental atelectasis at the right lung base. The visualized left lung base is clear. There is no pleural effusion. CARDIOVASCULATURE: The heart is normal in size. There is no pericardial effusion. LIVER: The liver is normal in size and contour. No liver mass is identified. The hepatic and portal veins are patent. GALLBLADDER / BILE DUCTS: The gallbladder is unremarkable. There is no intra or extrahepatic biliary ductal dilatation. SPLEEN: The spleen is normal in size. No focal splenic lesion is identified. PANCREAS: The pancreas is unremarkable in appearance. ADRENAL GLANDS: Within normal limits. KIDNEYS/RETROPERITONEUM: No renal calculi are identified. There is no hydronephrosis. No renal masses are identified. LYMPH NODES: No abdominal or pelvic lymphadenopathy. VASCULATURE: The abdominal aorta is normal in caliber. MESENTERY/PERITONEUM: No free fluid. No masses. There is no free intraperitoneal gas. STOMACH: The stomach is unremarkable. SMALL BOWEL: There is mild dilatation of proximal fluid-filled small bowel loops. Distal loops are collapsed. Findings may represent ileus or early small bowel obstruction. COLON: There is a large amount of stool throughout the colon. APPENDIX: The appendix is not seen, however no inflammatory changes are seen adjacent to the cecum. URINARY BLADDER/PELVIC ORGANS: The urinary bladder is unremarkable. There are multiple masses in the uterus including a 1.8 cm mass on the right and a 0.9 cm mass on the left. These likely represent fibroids. Hypodensity in the central portion of the uterus may represent fluid within a distended endometrial canal. BONES / SOFT TISSUES: There is degenerative disc disease of the spine. CT/CT abdomen pelvis w IV con IMPRESSION: 1. Mild dilatation of proximal small bowel loops with collapsed distal loops. Findings may represent ileus or early small bowel obstruction. 2. Large amount of stool throughout the colon. 3. Fibroid uterus. Possible fluid within a distended endometrial canal. Nonemergent pelvic ultrasound is recommended. Electronically signed by: Jose Juan Brian MD 07/20/2024 09:07 AM [facility]
--- NOTE | 2024-07-20 03:15 | PC.NURSE ---
Assumed care of pt at 0315. Report received from JUDITH Fitzgerald
--- OUTSIDE RECORDS SUMMARY | 2024-07-20 03:29 | XMS_ITS | Encounter Summary ---
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 [employer] Name Role Phone Haja Donahue MD Unavailable Brent Ellis MD Unavailable [phone] Carlos Castañeda PA-C Primary Care Provider [phone] Mark Acuña MD Unavailable [phone] Nanette Wyatt PA-C Unavailable Sunita Sanchez NP Unavailable [phone] Reason for Visit * Reason Onset Date Comments Pre-op Needed 04/07/2024 Encounter Details Date Type Department Care Team Description 04/07/2024 Telephone Adult Medicine [address] [id number] Carlos Castañeda PA-C [address] [place] [address] [phone] Pre-op Needed Social History Tobacco Use Types Packs/Day Years Used Date Smoking Tobacco: Never Smokeless Tobacco: Never Alcohol Use Standard Drinks/Week Comments Not Currently 0 (1 standard drink = 0.6 oz pur e alcohol) occasionally Alcohol Habits Answer Date Recorded How often do you have a drink containing alcohol ? Never 05/07/2020 How many drinks containing a lcohol do you have on a typical day when you are drinking? Not asked How often do you have six or more drinks on one occasion? Not asked Sex Assigned at Date Recorded Female 09/12/2022 6:47 AM E DT Job Start Date Occupation Industry Not on file Not on file Not on file documented as of this encounter Miscellaneous Notes * Telephone Encounter - Katiana Patino - 04/07/2024 3:09 PM EDT I tried multiple times to call patient - call will not go through. If she calls back please tell her apt is now 04/26 at 10:00am with Jonathan. I will keep trying the patient. * Telephone Encounter - Lynn Jaquez - 04/07/2024 1:40 PM EDT Patient had a pre op appointment on 04/17/2024 with Carlos Castañeda . [facility] [place] [facility]. Please reschedule. Patient knows that you will call on to reschedule with someone else. 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 [employer] Relationship Specialty Start Date End Date Carlos Castañeda PA-C [address] [place] [id number] PCP - General Internal Medicine 10/30/20 Haja Donahue MD [address] [place] [id number] Internal Medicine 04/04/20 Brent Ellis MD [address] [place] [address] [place] [address] [employer] Cardiovascular Disease 07/16/20 Mark Acuña MD [address] [id number] Specialist Cardiology 07/31/21 Nanette Wyatt PA-C [address] [address] Specialist Cardiology 07/31/21 Sunita Sanchez NP [address] [place] [id number] Nurse Practitioner Cardiology 10/20/23 documented as of this encounter
--- OUTSIDE RECORDS SUMMARY | 2024-07-20 03:29 | XMS_ITS | Encounter Summary ---
Author Organization [facility] Address [address] [place] [address] Care Team Providers Care Communications Director Name Role Phone Carlos Castañeda Primary Care Provider [phone] Reason for Referral * Imaging (Routine) - Pending Review Specialty Diagnoses / Procedures Referred By Contac t Referred To Contact Radiology Diagnoses Elevated LFTs Procedures US Abdomen Limited Rochelle Parks PA [address] [place] [address] Phone: tel: fax: [address] Phone: tel: Referral ID Status Reason Start Date Expiration Date V isits Requested Visits Authorized [id number] Pending Review 06/30/2024 06/30/2025 1 1 Reason for Visit * Imaging (Routine) - Pending Review Specialty Diagnoses / Procedures Referred By Contac t Referred To Contact Radiology Diagnoses Elevated LFTs Procedures US Abdomen Limited Rochelle Parks PA [address] [place] [address] Phone: tel: fax: [address] Phone: tel: Referral ID Status Reason Start Date Expiration Date V isits Requested Visits Authorized [id number] Pending Review 06/30/2024 06/30/2025 1 1 Encounter Details Date Type Department Care Team (Latest Contact Info) Description 07/18/2024 9:24 AM EST - 07/18/2024 11:59 PM EST Hospital Encounter Radiology Department [address] [address] Elevated LFTs Discharge Disposition: Home or Self Care Social History Tobacco Use Types Packs/Day Years Used Date Smoking Tobacco: Never Smokeless Tobacco: Never Alcohol Use Standard Drinks/Week Comments Not Currently 0 (1 standard drink = 0.6 oz pur e alcohol) Comments Unknown Sex and Gender Information Value Date Recorded Sex Assigned at Not on file Legal Sex Female 1:47 AM EST Gender Identity Not on file Sexual Orientation Not on file documented as of this encounter Medications at Time of Discharge acetaminophen-co deine (TYLENOL #3) 300-30 mg per tablet Take 1 tablet by mouth every 4 (four) hours if needed for moderate pain or severe pain. 05/10/2024 albuterol HFA (ProAir HFA) 90 mcg/actuation inhaler Inhale 1 puff by mouth every 6 (six) hours if needed for wheezing or shortness of breath. 8.5 g 06/29/2024 amLODIPine (NORVASC) 10 mg tablet Take 1 tablet (10 mg total) by mouth 1 (one) time each day. 90 tablet 1 06/29/2024 ascorbic acid (VITAMIN C) 250 mg tablet Take 1 Tab by mouth daily. aspirin 81 mg EC tablet Take 1 tablet (81 mg total) by mouth 1 (one) time each day. 90 tablet 1 06/29/2024 atorvastatin (LIPITOR) 20 mg tablet Take 1 tablet (20 mg total) by mouth 1 (one) time each day. 90 tablet 1 06/29/2024 blood sugar diagnostic (FreeStyle Lite Strips) test strip Use to check blood sugar once daily 10/27/2023 blood-glucose meter kit Use to check blood sugar once daily 10/27/2023 calcium carbonate-vitami n D3 600 mg-5 mcg (200 unit) capsule Take by mouth daily. cholecalciferol (VITAMIN D-3) 10 mcg (400 unit) tablet Take by mouth daily. cyanocobalamin (VITAMIN B-12) 1,000 mcg tablet Take 1,000 mcg by mouth daily. cyclobenzaprine (FLEXERIL) 10 mg tablet Take 1 tablet (10 mg total) by mouth 2 (two) times a day if needed for muscle spasms. 30 tablet 5 06/29/2024 dextromethorphan -guaifenesin 20-200 mg/10 mL liquid in packet Take 20 mg by mouth every 6 hours as needed for Other (cough). - Oral FREESTYLE LANCETS [facility] Use to check blood sugar once daily 10/27/2023 levothyroxine (SYNTHROID, LEVOTHROID) 75 mcg tablet Take 1 tablet (75 mcg total) by mouth 1 (one) time each day. 90 tablet 06/29/2024 lidocaine (LIDODERM) 5 % patch Apply topically 1 (one) time each day. Apply for no more than 12 hours in any 24 hour period 28 patch 06/29/2024 meclizine (ANTIVERT) 25 mg tablet Take 1 Tablet by mouth 3 times daily as needed (vertigo). 30 tablet 06/29/2024 metoprolol succinate (TOPROL-XL) 100 mg 24 hr tablet Take 1 tablet (100 mg total) by mouth 1 (one) time each day. Do not crush or chew. 90 tablet 1 06/29/2024 multivitamin tablet Take by mouth daily. omeprazole (PriLOSEC) [address] capsule Take 1 capsule (20 mg total) by mouth 1 (one) time each day. Do not crush or chew. 90 capsule 1 06/29/2024 ondansetron (ZOFRAN) 4 mg tablet Take 1 tablet (4 mg total) by mouth every 8 (eight) hours if needed for nausea. 21 tablet 2 06/29/2024 rOPINIRole (REQUIP) 0.25 mg tabletIndication s:restless leg syndrome Take 1 tablet (0.25 mg total) by mouth 2 (two) times a day. 180 tablet 1 06/29/2024 spironolactone (Aldactone) 50 mg tablet Take 1 tablet (50 mg total) by mouth 1 (one) time each day. 90 each 1 06/29/2024 tolterodine LA (DETROL LA) 4 mg 24 hr capsule Take 1 capsule (4 mg total) by mouth 1 (one) time each day. Do not crush, chew, or split. 90 capsule 1 06/29/2024 zonisamide (ZONEGRAN) 100 mg capsule Take 1 Capsule by mouth 2 times daily as needed (nausea). 180 capsule 1 06/29/2024 documented as of this encounter Discharge Disposition Disposition Code Departure Means Destination Home or Self Care documented in this encounter Plan of Treatment Upcoming Encounters Date Type Department Care Team (Late st Contact Info) Description 08/01/2024 10:30 AM EST Consult General Surgery - [place] [address] [place] [address] Ravindra Sarmiento, DO [address] [place] [address] documented as of this encounter Procedures Procedure Name Priority Date/Time Associated Diagnosis Comments US ABDOMEN LIMITED Routine 07/18/2024 9: 57 AM EST Elevated LFTs documented in this encounter Results * US Abdomen Limited (07/18/2024 9:57 AM EST) Anatomical Region Laterality Modality Body Ultrasound 07/18/2024 11:5 1 AM EST Impressions 07/18/2024 11:54 AM EST No abnormality detected in the visualized abdominal visceral structures. ??Pancreas obscured by bowel gas. POS [id number] -------- FINAL REPORT -------- Dictated By: Naomi Treviño Dictated Date: 07/18/2024 11:51 ET Assigned Physician: Naomi Treviño Reviewed and Electronically Signed By: Naomi Treviño Signed Date: 07/18/2024 11:54 ET Workstation ID: [id number] Transcribed By: Self Edit Transcribed Date: 07/18/2024 11:51 ET Narrative 07/18/2024 11:54 AM EST EXAM: Abdomen ultrasound, limited HISTORY: Elevated liver function tests. COMPARISON: ??None FINDINGS: Liver: Normal in size measuring 16.4 cm in craniocaudad extent. ??Parenchymal echotexture appears within normal limits without lesions detected. Gallbladder/Biliary Tree: Gallbladder lumen appears clear without wall thickening or pericholecystic fluid. No intra or extrahepatic biliary ductal dilatation. The common bile duct measures 0.3 cm. Pancreas: Obscured by bowel gas. Right kidney: Normal in size measuring 9.3 cm in craniocaudad extent. ??No hydronephrosis, focal lesions, or shadowing stones. Vasculature: Hepatopedal flow in the main portal vein. Procedure Note Naomi Treviño MD - 07/18/2024 EXAM: Abdomen ultrasound, limited HISTORY: Elevated liver function tests. COMPARISON: None FINDINGS: Liver: Normal in size measuring 16.4 cm in craniocaudad extent.Parenchymal echotexture appears within normal limits without lesionsdetected. Gallbladder/Biliary Tree: Gallbladder lumen appears clear without wallthickening or pericholecystic fluid. No intra or extrahepatic biliaryductal dilatation. The common bile duct measures 0.3 cm. Pancreas: Obscured by bowel gas. Right kidney: Normal in size measuring 9.3 cm in craniocaudad extent. Nohydronephrosis, focal lesions, or shadowing stones. Vasculature: Hepatopedal flow in the main portal vein. IMPRESSION: No abnormality detected in the visualized abdominal visceral structures.Pancreas obscured by bowel gas. POS [id number] -------- FINAL REPORT -------- Dictated By: Naomi Treviño Dictated Date: 07/18/2024 11:51 ET Assigned Physician: Naomi Treviño Reviewed and Electronically Signed By: Naomi Treviño Signed Date: 07/18/2024 11:54 ET Workstation ID: [id number] Transcribed By: Self Edit Transcribed Date: 07/18/2024 11:51 ET us Rochelle Charly LONGORIA IMRafal US PROCEDURES Final Result documented in this encounter Visit Diagnoses Diagnosis Elevated LFTs Other abnormal blood chemistry documented in this encounter Care Teams Communications Director Relationship Specialty Start Date End Date Carlos Castañeda PA [address] [place] [address] PCP - General Internal Medicine 04/17/24 documented as of this encounter
--- OUTSIDE RECORDS SUMMARY | 2024-07-20 03:29 | XMS_ITS | Encounter Summary ---
Author Organization [facility] Address [address] [place] [address] Care Team Providers Care Sole Polisher Name Role Phone Carlos Castañeda Primary Care Provider [phone] Reason for Visit * Reason Onset Date Comments VNA 06/14/2024 Iain BALTAZARA Encounter Details Date Type Department Care Team (Late st Contact Info) Description 06/14/2024 Telephone Adult Medicine [facility] [address] [place] [address] Carlos Castañeda PA [address] [place], [place] [phone] VNA (Iain BALTAZARA) Social History Tobacco Use Types Packs/Day Years [...] on file documented as of this encounter Progress Notes * Nicolle Lynn RN - 06/14/2024 4:39 PM EST fyi * Bipin Mcgee - 06/14/2024 4:18 PM EST VNA CALL Which VNA office is calling? [facility] / Full name of caller: Tracey SuhMarvin The caller is A nurse Is the caller at the patients home?: no Reason for call: FYI pt was discharged today from assisted. Pls advise. Does caller need an urgent call back? no Was CONTACT Telephone # obtained above?: yes Fax #: no documented in this encounter Plan of Treatment Upcoming Encounters Date Type Department Care Team (Late st Contact Info) Description 08/01/2024 10:30 AM EST Consult General Surgery - [place] [address] [address] Ravindra Sarmiento, [address] [address] documented as of this encounter Visit Diagnoses Not on filedocumented in this encounter Care Teams Sole Polisher Relationship Specialty Start Date End Date Carlos Castañeda PA [address] [place] [address] PCP - General Internal Medicine 04/17/24 documented as of this encounter
--- OUTSIDE RECORDS SUMMARY | 2024-07-20 03:29 | XMS_ITS | Encounter Summary ---
Author Organization [facility] Address [address] [place] [address] Care Team Providers Care Fruit Grading Supervisor Name Role Phone Haja Donahue MD Unavailable [phone] Brent Ellis MD Unavailable [phone] Carlos Castañeda PA-C Primary Care Provider [phone] iNcky Miller Unavailable Unavailable Mark Acuña MD Unavailable [phone] Nanette Wyatt PA-C Unavailable Sunita Sanchez NP Unavailable [phone] Encounter Details Date Type Department Care Team Description 11/18/2020 First Aid Trainer Report Medical Records [address] [place] [address] Maria Antonia Peres Social History Tobacco Use Types Packs/Day Years Used Date Smoking Tobacco: Never Smokeless Tobacco: Never Alcohol Use Standard Drinks/Week Comments No 0 (1 standard drink = 0.6 oz pur e alcohol) quit 10 yrs ago Alcohol Habits Answer Date Recorded How often [...] file Not on file Not on file COVID-19 Exposure Response Date Recorded In the last month, have you been in contact with someone who was confirmed or suspected to have Coronavirus / COVID-19? No / Unsure 11/11/2020 11:58 AM EDT documented as of this encounter Plan of Treatment Not on file documented as of this encounter Visit Diagnoses Not on filedocumented in this encounter Care Teams Fruit Grading Supervisor Relationship Specialty Start Date End Date Carlos Castañeda PA-C [address] [place] [address] PCP - General Internal Medicine 10/30/20 Haja Donahue MD [address] [place] [address] Internal Medicine 04/04/20 Brent Ellis MD [address] [place] [address] Planning Supervisor Cardiovascular Disease 07/16/20 Nicky Miller PA [address] [place] [address] Specialist Cardiology 02/06/21 11/11/23 Mark Acuña MD [address] [place] [address] Specialist Cardiology 07/31/21 Nanette Wyatt PA-C [address] [place] [address] Specialist Cardiology 07/31/21 Sunita Sanchez NP [address] [place] [address] Nurse Practitioner Cardiology 10/20/23 documented as of this encounter
--- OUTSIDE RECORDS SUMMARY | 2024-07-20 03:29 | XMS_ITS | Encounter Summary ---
Author Organization [facility] Address [address] [place] [address] Care Team Providers Care Highway Design Engineer Name Role Phone Haja Donahue MD Unavailable [phone] Brent Ellis MD Unavailable [phone] Carlos Castañeda PA-C Primary Care Provider [phone] Nicky Miller Unavailable Unavailable Mark Acuña MD Unavailable [phone] Nanette Wyatt PA-C Unavailable Sunita Sanchez NP Unavailable [phone] Encounter Details Date Type Department Care Team Description 11/19/2020 Transfer Records Medical Records [address] [place] [address] Abstract, Provider Social History Tobacco Use Types Packs/Day Years [...] on filedocumented in this encounter Care Teams Highway Design Engineer Relationship Specialty Start Date End Date Carlos Castañeda PA-C [address] [place] [address] PCP - General Internal Medicine 10/30/20 Haja Donahue MD [address] [place] [address] Internal Medicine 04/04/20 Brent Ellis MD [address] [place] [address] Separating Machine Operator Cardiovascular Disease 07/16/20 Nicky Miller PA [address] [place] [address] Specialist Cardiology 02/06/21 11/11/23 Mark Acuña MD [address] [place] [address] Specialist Cardiology 07/31/21 Nanette Wyatt PA-C [address] [place] [address] Specialist Cardiology 07/31/21 Sunita Sanchez NP [address] [place] [address] Nurse Practitioner Cardiology 10/20/23 documented as of this encounter
--- OUTSIDE RECORDS SUMMARY | 2024-07-20 03:29 | XMS_ITS | Encounter Summary ---
Author Organization [facility] Address [address] [place] [address] Care Team Providers Care Electric Meter Installer Name Role Phone Haja Donahue MD Unavailable Brent Ellis MD Unavailable [phone] Carlos Castañeda PA-C Primary Care Provider [phone] Mark Acuña MD Unavailable [phone] Nanette Wyatt PA-C Unavailable Sunita Sanchez NP Unavailable [phone] Reason for Visit * Reason Onset Date Comments medication problems 02/23/2024 Encounter Details Date Type Department Care Team Description 02/23/2024 Telephone Adult Medicine [facility] [address] [place] [address] [phone] Carlos Castañeda PA-C [address] [place] [address] [phone] medication problems Social History Tobacco Use Types Packs/Day Years Used Date Smoking Tobacco: Never Smokeless Tobacco: Never Alcohol Use Standard Drinks/Week Comments Not Currently 0 (1 standard drink = 0.6 oz pur e alcohol) Alcohol Habits Answer Date Recorded How often [...] encounter Miscellaneous Notes * Telephone Encounter - Valeria Lomeli - 02/23/2024 4:23 PM EDT Pharmacy called / due to her insurance she will need to buy these med's over the counter Message left for patient to return call. * Telephone Encounter - Valeria Lomeli - 02/23/2024 11:12 AM EDT Pharmacy called / busy will try again * Telephone Encounter - Nancy Weiss - 02/23/2024 10:56 AM EDT Who is calling? A pharmacist: Pharmacy: [facility] Pharmacist Name: [facility] Name of the medication Dextromethorphan-guaiFENesin 20-200 MG/20ML Liquid What is the specific problem or interaction? Pharmacy needs clarifycation if it is 20ML also this medication is not cover by insurance and looking fo alternative med since benzonatate (Tessalon Perles) 100 MG capsule is not cover by insurance as well If the patient is having a problem with taking the med - how long has the problem been going on? N/A documented in this encounter Plan of Treatment Not on file documented as of this encounter Visit Diagnoses Not on filedocumented in this encounter Care Teams Electric Meter Installer Relationship Specialty Start Date End Date Carlos Castañeda PA-C [address] [place] [address] PCP - General Internal Medicine 10/30/20 Haja Donahue MD [address] [place] [address] [phone] Internal Medicine 04/04/20 Brent Ellis MD [address] [place] [address] Biomedical Engineering Technician Cardiovascular Disease 07/16/20 Mark Acuña MD [address] [place] [address] Specialist Cardiology 07/31/21 Nanette Wyatt PA-C [address] [place] [address] Specialist Cardiology 07/31/21 Sunita Sanchez NP [address] [place] [address] Nurse Practitioner Cardiology 10/20/23 documented as of this encounter
--- OUTSIDE RECORDS SUMMARY | 2024-07-20 03:29 | XMS_ITS | Encounter Summary ---
Author Organization [facility] Address [address] [place] [address] Care Team Providers Care Manager Fine Name Role Phone Haja Donahue MD Primary Care Provider [phone] Haja Donahue MD Unavailable [phone] Brent Ellis MD Unavailable [phone] Carlos Castañeda PA-C Primary Care Provider [phone] Nicky Miller Unavailable Unavailable Mark Acuña MD Unavailable [phone] Nanette Wyatt PA-C Unavailable Sunita Sanchez NP Unavailable [phone] Reason for Visit * Reason Onset Date Comments refill request 07/16/2020 Encounter Details Date Type Department Care Team Description 07/16/2020 Refill Adult Medicine [address] [phone] Haja Donahue MD [address] [place] [address] [phone] refill request Social History Tobacco Use Types Packs/Day Years [...] have Coronavirus / COVID-19? No / Unsure 06/28/2020 10:55 AM EST documented as of this encounter Miscellaneous Notes * Telephone Encounter - Xochitl Orantes - 07/16/2020 11:56 AM EST Lab Results Component Value Date CHOL 150 06/28/2020 LDL 86 06/28/2020 HDL 50 06/28/2020 TRIG 74 06/28/2020 SGOT 14 07/20/2019 SGPT 23 07/20/2019 Lab Results Component Value Date NA 142 06/28/2020 K 4.4 06/28/2020 CO2 25 06/28/2020 CL 110 06/28/2020 BUN 19 06/28/2020 CREAT 1.45 06/28/2020 GLU 69 06/28/2020 CA 8.8 06/28/2020 GFR 36 06/28/2020 * Telephone Encounter - Marisa Jacobs - 07/16/2020 9:46 AM EST Patient would like script to be: E-PRESCRIBED/FAXED TO PHARMACY WHEN WAS THE PATIENT'S LAST APPOINTMENT IN ADULT MEDICINE? 06/26/20 WHEN WAS THE LAST TIME THE PATIENT SAW THEIR PCP? 04/02/20 Does patient have an upcoming appointment? Yes 09/24/20 (THE MEDICATION REQUESTED IS ON THE MED LIST ABOVE) All of the medications requested were on the CURRENT MEDS list Did you check the Pharmacy information above?: YES Patient wants: 30 -day supply Is this a mail order prescription request ? NO If the refill is from a FAXED refill request what is the RX # listed on the fax? N/A Patients current insurance carrier is: Payor: [facility] / Plan: AARP MEDICARE COMPLETE $0 [id number] / Product Type: HMO [id number] documented in this encounter Plan of Treatment Not on file documented as of this encounter Visit Diagnoses Not on filedocumented in this encounter Care Teams Manager Fine Relationship Specialty Start Date End Date Haja Donahue MD [address] [place] [address] PCP - General 04/04/20 10/29/20 Carlos Castañeda PA-C [address] [place] [address] PCP - General Internal Medicine 10/30/20 Haja Donahue MD [address] [place] [address] Internal Medicine 04/04/20 Brent Ellis MD [address] [place] [address] [place] [address] Self Storage Manager Cardiovascular Disease 07/16/20 Nicky Miller PA [address] [place] [address] Specialist Cardiology 02/06/21 11/11/23 Mark Acuña MD [address] [address] Specialist Cardiology 07/31/21 Nanette Wyatt PA-C [address] [address] Specialist Cardiology 07/31/21 Sunita Sanchez, LASHANDA [address] [place] [address] Nurse Practitioner Cardiology 10/20/23 documented as of this encounter
--- OUTSIDE RECORDS SUMMARY | 2024-07-20 03:29 | XMS_ITS | Encounter Summary ---
Author Organization [facility] Address [address] [place] [address] Care Team Providers Care Cloth Doubling Machine Operator Name Role Phone Haja Donahue MD Primary Care Provider [phone] Haja Donahue MD Primary Care Provider [phone] Haja Donahue MD Unavailable [phone] Brent Ellis MD Unavailable [phone] Carlos Castañeda PA-C Primary Care Provider [phone] Nicky Miller Unavailable Unavailable Mark Acuña MD Unavailable [phone] Nanette Wyatt PA-C Unavailable Sunita Sanchez NP Unavailable [phone] Reason for Visit * Reason Onset Date Comments refill request 04/11/2019 Encounter Details Date Type Department Care Team Description 04/11/2019 Refill Adult Medicine [address] [phone] Haja Dnoahue MD [address] [place] [address] [phone] refill request Social History Tobacco Use Types [...] encounter Miscellaneous Notes * Telephone Encounter - Anais Aguilera M.A. - 04/12/2019 8:38 AM EST rx faxed * Telephone Encounter - Lisseth Tsang M.A. - 04/12/2019 8:[address] Donahue, Next appt on 04/19/19 Will you sign? * Telephone Encounter - Sunita Last - 04/11/2019 2:46 PM EST Patient would like script to be: E-PRESCRIBED/FAXED TO PHARMACY WHEN WAS THE PATIENT'S LAST APPOINTMENT IN ADULT MEDICINE? 01/24/19 WHEN WAS THE LAST TIME THE PATIENT SAW THEIR PCP? Has not met new pcp yet Does patient have an upcoming appointment? Yes 04/19/19 (THE MEDICATION REQUESTED IS ON THE MED LIST ABOVE) All of the medications requested were on the CURRENT MEDS list Did you check the Pharmacy information above?: YES Patient wants: 90 -day supply Is this a mail order prescription request ? NO If the refill is from a FAXED refill request what is the RX # listed on the fax? N/A Patients current insurance carrier is: [place] / [place] / Product Type: MEDICARE [id number] documented in this encounter Plan of Treatment Not on file documented as of this encounter Visit Diagnoses Not on filedocumented in this encounter Care Teams Cloth Doubling Machine Operator Relationship Specialty Start Date End Date Haja Donahue MD [address] [place] [address] PCP - General Internal Medicine 01/30/19 04/03/20 Haja Donahue MD [address] [place] [address] PCP - General 04/04/20 10/29/20 Carlos Castañeda PA-C [address] [place] [address] PCP - General Internal Medicine 10/30/20 Haja Donahue MD [address] [place] [address] Internal Medicine 04/04/20 Brent Ellis MD [address] [place] [address] Trim Sawyer Cardiovascular Disease 07/16/20 Nicky Miller PA [address] [place] [address] Specialist Cardiology 02/06/21 11/11/23 Mark Acuña MD [address] [place] [address] Specialist Cardiology 07/31/21 Nanette Wyatt PA-C [address] [place] [address] Specialist Cardiology 07/31/21 Sunita Sanchez NP [address] [place] [address] Nurse Practitioner Cardiology 10/20/23 documented as of this encounter
--- OUTSIDE RECORDS SUMMARY | 2024-07-20 03:29 | XMS_ITS | Encounter Summary ---
Author Organization [facility] Address [address] [place] [address] Care Team Providers Care Armored Service Technician Name Role Phone Haja Donahue MD Unavailable [phone] Brent Ellis MD Unavailable [phone] Carlos Castañeda PA-C Primary Care Provider + [phone] Nicky Miller Unavailable Unavailable Mark Acuña MD Unavailable [phone] Nanette Wyatt PA-C Unavailable Sunita Sanchez NP Unavailable [phone] Reason for Visit * Reason Comments E-prescribe Rx Request Encounter Details Date Type Department Care Team Description 01/24/2022 Refill Adult Medicine [address] [id number] Carlos Castañeda PA-C [address] [place] [address] [id number] E-prescribe Rx Request Social History Tobacco Use Types Packs/Day Years Used Date Smoking Tobacco: Never Smokeless Tobacco: Never Alcohol Use Standard Drinks/Week Comments Yes 0 (1 standard drink = 0.6 oz pur e alcohol) occ Alcohol Habits Answer Date Recorded How often [...] encounter Miscellaneous Notes * Telephone Encounter - Bre Muñiz M.A. - 02/03/2022 2:49 PM EDT Lab Results Component Value Date TSH 2.56 07/23/2021 Lab Results Component Value Date CHOL 159 07/23/2021 LDL 88 07/23/2021 HDL 51 07/23/2021 TRIG 100 07/23/2021 SGOT 30 07/23/2021 SGPT 49 07/23/2021 Lab Results Component Value Date NA 144 07/23/2021 K 4.1 07/23/2021 CO2 25 07/23/2021 CL 112 07/23/2021 BUN 30 07/23/2021 CREAT 1.26 07/23/2021 GLU 84 07/23/2021 CA 8.7 07/23/2021 GFR 43 07/23/2021 VAMSI 09/16/21 Appt 01/21/22 - Center cancelled NO pending appt. * Telephone Encounter - Felicia Flores - 02/03/2022 9:55 AM EDT L/m for pt call back make future appt. 3rd attempt Letter mailed to patient * Telephone Encounter - Felicia Flores - 01/29/2022 9:28 AM EDT L/m for pt call back make future appt. 2nd attempt * Telephone Encounter - Felicia Flores - 01/27/2022 12:25 PM EDT Patient would like script to be: E-PRESCRIBED/FAXED TO PHARMACY WHEN WAS THE PATIENT'S LAST APPOINTMENT IN ADULT MEDICINE? 09/16/21 WHEN WAS THE LAST TIME THE PATIENT SAW THEIR PCP? Same as above Does patient have an upcoming appointment? No[facility] to refill request. Appt due (THE MEDICATION REQUESTED IS ON THE MED LIST ABOVE All of the medications requested were on the CURRENT MEDS list Did you check the Pharmacy information above?: YES Patient wants: 90 -day supply Is this a mail order prescription request ? NO If the refill is from a FAXED refill request what is the RX # listed on the fax? N/A Patients current insurance carrier is: Payor: [facility] / Plan: [facility] MEDICARE COMPLETE $0 [id number] / Product Type: HMO [id number] documented in this encounter Plan of Treatment Not on file documented as of this encounter Visit Diagnoses Not on filedocumented in this encounter Care Teams Armored Service Technician Relationship Specialty Start Date End Date Carlos Castañeda PA-C [address] [place] [address] PCP - General Internal Medicine 10/30/20 Haja Donahue MD [address] [place] [address] [phone] Internal Medicine 04/04/20 Brent Ellis MD [address] [place] [address] [place] [address] Conference Interpreter Cardiovascular Disease 07/16/20 Nicky Miller PA [address] [place] [address] Specialist Cardiology 02/06/21 11/11/23 Mark Acuña MD [address] [place] [address] Specialist Cardiology 07/31/21 Nanette Wyatt PA-C [address] [place] [address] Specialist Cardiology 07/31/21 Sunita Sanchez NP [address] [place] [address] Nurse Practitioner Cardiology 10/20/23 documented as of this encounter
--- OUTSIDE RECORDS SUMMARY | 2024-07-20 03:29 | XMS_ITS | Encounter Summary ---
Author Organization [facility] Address [address] [place] [address] Care Team Providers Care Business Solutions Analyst Name Role Phone Carlos Castañeda Primary Care Provider [phone] Reason for Visit * Reason Onset Date Comments faxed order 06/20/2024 Iain DockerA D/C summary tracking #[id number] Encounter Details Date Type Department Care Team ([facility] Contact Info) Description 06/20/2024 Telephone Adult Medicine [address] [address] Zee Booth MA faxed order ([place] DockerA D/C summary tracking #[id number]) Social History Tobacco Use Types Packs/Day Years [...] as of this encounter Progress Notes * Samantha Tsang MA - 06/26/2024 1:07 PM EST .ORDER() FAXED BACK ON 06/21/24 W/ CONFIRMATION OF TRANSMISSION * Zee Booth MA - 06/20/2024 1:47 PM EST Received orders from Iain DockerA D/C summary tracking #[id number]. Please sign and fax to [phone] documented in this encounter Plan of Treatment Upcoming Encounters Date Type Department Care Team (Late st Contact Info) Description 08/01/2024 10:30 AM EST Consult General Surgery - [place] [address] [facility] [address] [place] [phone] Ravindra Sarmiento, [address] [facility] Jasvir [address] [place] [address] documented as of this encounter Visit Diagnoses Not on filedocumented in this encounter Care Teams Business Solutions Analyst Relationship Specialty Start Date End Date Carlos Castañeda PA [address] [place] [address] PCP - General Internal Medicine 04/17/24 documented as of this encounter
--- OUTSIDE RECORDS SUMMARY | 2024-07-20 03:29 | XMS_ITS | Encounter Summary ---
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 No / Unsure 09/24/2020 10:25 AM EDT documented as of this encounter Plan of Treatment Not on file documented as of this encounter Visit Diagnoses Not on filedocumented in this encounter Care Teams Machine Packaging Technician Relationship Specialty Start Date End Date Haja Donahue MD [address] [place] [address] PCP - General 04/04/20 10/29/20 Carlos Castañeda PA-C [address] [place] [address] PCP - General Internal Medicine 10/30/20 Haja Donahue MD [address] [place] [address] Internal Medicine 04/04/20 Brent Ellis MD [address] [place] [address] Kardex Clerk Cardiovascular Disease 07/16/20 Nicky Miller PA [address] [place] [address] Specialist Cardiology 02/06/21 11/11/23 Mark Acuña MD [address] [address] Specialist Cardiology 07/31/21 Nanette Wyatt PA-C [address] [address] Specialist Cardiology 07/31/21 Sunita Sanchez NP [address] [place] [address] Nurse Practitioner Cardiology 10/20/23 documented as of this encounter
--- OUTSIDE RECORDS SUMMARY | 2024-07-20 03:29 | XMS_ITS | Encounter Summary ---
Author Organization [facility] Address [address] [place] [address] Care Team Providers Care Project Assistant Name Role Phone Haja Doanhue MD Unavailable [phone] Brent Ellis MD Unavailable [phone] Carlos Castañeda PA-C Primary Care Provider [phone] Nicky Miller Unavailable Unavailable Mark Acuña MD Unavailable [phone] Nanette Wyatt PA-C Unavailable Sunita Sanchez NP Unavailable [phone] Encounter Details Date Type Department Care Team Description 12/09/2021 [facility] Medical Records [address] [place] [address] Social History Tobacco Use Types Packs/Day Years [...] on file documented as of this encounter Plan of Treatment Not on file documented as of this encounter Procedures Procedure Name Priority Date/Time Associated Diagnosis Comments OUTSIDE LAB Routine 12/10/2021 documented in this encounter Results * OUTSIDE LAB (12/10/2021) Provider Abstract LAB documented in this encounter Visit Diagnoses Not on filedocumented in this encounter Care Teams Project Assistant Relationship Specialty Start Date End Date Carlos Castañeda PA-C [address] [place] [address] PCP - General Internal Medicine 10/30/20 Haja Donahue MD [address] [place] [address] Internal Medicine 04/04/20 Brent Ellis MD [address] [place] [address] Chummer Cardiovascular Disease 07/16/20 Nicky Miller PA [address] [place] [address] Specialist Cardiology 02/06/21 11/11/23 Mark Acuña MD [address] [place] [address] Specialist Cardiology 07/31/21 Nanette Wyatt PA-C [address] [place] [address] Specialist Cardiology 07/31/21 Sunita Sanchez NP [address] [place] [address] Nurse Practitioner Cardiology 10/20/23 documented as of this encounter
--- OUTSIDE RECORDS SUMMARY | 2024-07-20 03:29 | XMS_ITS | Encounter Summary ---
Author Organization [facility] Address [address] [place] [address] Care Team Providers Care Idea Man Name Role Phone Haja Donahue MD Unavailable [phone] rBent Ellis MD Unavailable [phone] Carlos Castañeda PA-C Primary Care Provider [phone] Nicky Miller Unavailable Unavailable Mark Acuña MD Unavailable [phone] Nanette Wyatt PA-C Unavailable Sunita Sanchez NP Unavailable [phone] Encounter Details Date Type Department Care Team Description 07/20/2022 [facility] Medical Records [address] [place] [address] Abstract, Provider Social History Tobacco Use Types [...] Exposure Response Date Recorded In the last 10 days, have yo u been in contact with someone who was confirmed or suspected to have Coronavirus/COVID-19? No / Unsure 07/20/2022 12:47 PM EST documented as of this encounter Plan of Treatment Not on file documented as of this encounter Visit Diagnoses Not on filedocumented in this encounter Care Teams Idea Man Relationship Specialty Start Date End Date Carlos Castañeda PA-C [address] [place] [address] PCP - General Internal Medicine 10/30/20 Haja Donahue MD [address] [place] [address] Internal Medicine 04/04/20 Brent Ellis MD [address] [place] [address] Health Policy Nurse Cardiovascular Disease 07/16/20 Nicky Miller PA [address] [place] [address] Specialist Cardiology 02/06/21 11/11/23 Mark Acuña MD [address] [place] [address] Specialist Cardiology 07/31/21 Nanette Wyatt PA-C [address] [place] [address] Specialist Cardiology 07/31/21 Sunita Sanchez NP [address] [place] [address] Nurse Practitioner Cardiology 10/20/23 documented as of this encounter
--- OUTSIDE RECORDS SUMMARY | 2024-07-20 03:29 | XMS_ITS | Encounter Summary ---
Author Organization [facility] Address [address] [place] [address] Care Team Providers Care Varnish Thinner Name Role Phone Haja Donahue MD Primary Care Provider + [phone] Haja Donahue MD Unavailable [phone] Brent Ellis MD Unavailable [phone] Carlos Castañeda PA-C Primary Care Provider [phone] Nicky Miller Unavailable Unavailable Mark Acuña MD Unavailable [phone] Nanette Wyatt PA-C Unavailable Sunita Sanchez NP Unavailable [phone] Encounter Details Date Type Department Care Team Description 08/21/2020 Orders Only Medical Records [address] [place] [address] Default, Provider Social History Tobacco Use Types Packs/Day [...] Name Priority Date/Time Associated Diagnosis Comments OUTSIDE ECHO Routine 02/27/2020 documented in this encounter Results * OUTSIDE ECHO (02/27/2020) Provider Default CARDIOLOGY documented in this encounter Visit Diagnoses Not on filedocumented in this encounter Care Teams Varnish Thinner Relationship Specialty Start Date End Date Haja Donahue MD [address] [place] [address] PCP - General 04/04/20 10/29/20 Carlos Castañeda PA-C [address] [place] [address] PCP - General Internal Medicine 10/30/20 Haja Donahue MD [address] [place] [address] Internal Medicine 04/04/20 Brent Ellis MD [address] [place] [address] Health Safety Engineer Cardiovascular Disease 07/16/20 Nicky Miller PA [address] [place] [address] Specialist Cardiology 02/06/21 11/11/23 Mark Acuña MD [address] [facility] [address] [place] [address] Specialist Cardiology 07/31/21 Nanette Wyatt PA-C [address] [address] Specialist Cardiology 07/31/21 Sunita Sanchez NP [address] [place] [address] Nurse Practitioner Cardiology 10/20/23 documented as of this encounter
--- OUTSIDE RECORDS SUMMARY | 2024-07-20 03:29 | XMS_ITS | Encounter Summary ---
Author Organization [facility] Address [address] [place] [address] Care Team Providers Care Passementerie Worker Name Role Phone Haja Donahue MD Unavailable [phone] rBent Ellis MD Unavailable Carlos Castañeda PA-C Primary Care Provider [phone] Nicky Miller Unavailable Unavailable Mark Acuña MD Unavailable [phone] Nanette Wyatt PA-C Unavailable Sunita Sanchez NP Unavailable [phone] Encounter Details Date Type Department Care Team Description 12/09/2022 [facility] Medical Records [address] [place] [address] Social History Tobacco Use Types Packs/Day Years [...] Name Priority Date/Time Associated Diagnosis Comments OUTSIDE VASCULAR STUDY Routine 12/09/2022 OUTSIDE EKG Routine 12/09/2022 OUTSIDE PLAIN FILM Routine 12/09/2022 OUTSIDE LAB Routine 12/09/2022 documented in this encounter Results * OUTSIDE PLAIN FILM (12/09/2022) Provider Abstract RADIOLOGY * OUTSIDE LAB (12/09/2022) Provider Abstract LAB * OUTSIDE VASCULAR STUDY (12/09/2022) Provider Abstract CARDIOLOGY * OUTSIDE EKG (12/09/2022) Provider Abstract CARDIOLOGY documented in this encounter Visit Diagnoses Not on filedocumented in this encounter Care Teams Passementerie Worker Relationship Specialty Start Date End Date Carlos Castañeda PA-C [address] [place] [address] PCP - General Internal Medicine 10/30/20 Haja Donahue MD [address] [place] [address] Internal Medicine 04/04/20 Brent Ellis MD [address] [place] [address] Machine Castings Plasterer Cardiovascular Disease 07/16/20 Nicky Miller PA [address] [place] [address] Specialist Cardiology 02/06/21 11/11/23 Mark Acuña MD [address] [address] Specialist Cardiology 07/31/21 Nanette Wyatt PA-C [address] [address] Specialist Cardiology 07/31/21 Sunita Sanchez NP [address] [place] [address] Nurse Practitioner Cardiology 10/20/23 documented as of this encounter
--- OUTSIDE RECORDS SUMMARY | 2024-07-20 03:29 | XMS_ITS | Encounter Summary ---
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 Medical Records [address] [place] [address] Felipe Posadas PA-C Social History Tobacco Use Types Packs/Day Years [...] on filedocumented in this encounter Care Teams Pharmaceutical Development Technician Relationship Specialty Start Date End Date Haja Donahue MD [address] [place] [address] PCP - General 04/04/20 10/29/20 Carlos Castañeda PA-C [address] [place] [address] PCP - General Internal Medicine 10/30/20 Haja Donahue MD [address] [place] [address] Internal Medicine 04/04/20 Brent Ellis MD [address] [place] [address] Local Sales Manager Cardiovascular Disease 07/16/20 Nicky Miller PA [address] [place] [address] Specialist Cardiology 02/06/21 11/11/23 Mark Acuña MD [address] [address] Specialist Cardiology 07/31/21 Nanette Wyatt PA-C [address] [facility] [address] [place] [address] Specialist Cardiology 07/31/21 Sunita Sanchez NP [address] [place] [address] Nurse Practitioner Cardiology 10/20/23 documented as of this encounter
--- OUTSIDE RECORDS SUMMARY | 2024-07-20 03:29 | XMS_ITS | Encounter Summary ---
Author Organization [facility] Address [address] [place] [address] Care Team Providers Care Water Tender Name Role Phone Haja Donahue MD Unavailable [phone] Brent Ellis MD Unavailable [phone] Carlos Castañeda PA-C Primary Care Provider [phone] Nicky Miller Unavailable Unavailable Mark Acuña MD Unavailable [phone] Nanette Wyatt PA-C Unavailable Sunita Sanchez NP Unavailable [phone] Reason for Visit * Reason Onset Date Comments other 06/16/2022 Encounter Details Date Type Department Care Team Description 06/16/2022 Telephone Cardio [facility] [address] [facility] [address] [place] [address] Nicky Miller PA other Social History Tobacco Use Types Packs/Day Years [...] suspected to have Coronavirus/COVID-19? No / Unsure 06/15/2022 12:57 PM EST documented as of this encounter Miscellaneous Notes * Telephone Encounter - Marisa Moran - 06/16/2022 2:58 PM EST Called pt and LM to call me back. documented in this encounter Plan of Treatment Not on file documented as of this encounter Visit Diagnoses Not on filedocumented in this encounter Care Teams Water Tender Relationship Specialty Start Date End Date Carlos Castañeda PA-C [address] [place] [address] PCP - General Internal Medicine 10/30/20 Haja Donahue MD [address] [place] [address] Internal Medicine 04/04/20 Brent Ellis MD [address] [place] [address] Remelt Operator Cardiovascular Disease 07/16/20 Nicky Miller PA [address] [place] [address] Specialist Cardiology 02/06/21 11/11/23 Mark Acuña MD [address] [address] Specialist Cardiology 07/31/21 Nanette Wyatt PA-C [address] [address] Specialist Cardiology 07/31/21 Sunita Sanchez NP [address] [place] [address] Nurse Practitioner Cardiology 10/20/23 documented as of this encounter
--- OUTSIDE RECORDS SUMMARY | 2024-07-20 03:29 | XMS_ITS | Encounter Summary ---
Author Organization [facility] Address [address] [place] [address] Care Team Providers Care Hyperion Essbase Developer Name Role Phone Haja Donahue MD Unavailable [phone] Brent Ellis MD Unavailable [phone] Carlos Castañeda PA-C Primary Care Provider Mark Acuña MD Unavailable [phone] Nanette Wyatt PA-C Unavailable Sunita Sanchez NP Unavailable [phone] Encounter Details Date Type Department Care Team Description 12/16/2023 Orders Only Medical Records [address] [place] [address] Carlos Castañeda PA-C [address] [place], [place] [phone] Social History Tobacco Use Types Packs/Day Years [...] Name Priority Date/Time Associated Diagnosis Comments OUTSIDE MAMMO Routine 11/09/2023 documented in this encounter Results * OUTSIDE MAMMO (11/09/2023) Carlos Castañeda PA-C RADIOLOGY documented in this encounter Visit Diagnoses Not on filedocumented in this encounter Care Teams Hyperion Essbase Developer Relationship Specialty Start Date End Date Carlos Castañeda PA-C [address] [place] [address] PCP - General Internal Medicine 10/30/20 Haja Donahue MD [address] [place], [place] 0002120 Internal Medicine 04/04/20 Brent Ellis MD [address] [place] [address] Weight Shifter Cardiovascular Disease 07/16/20 Mark Acuña MD [address] [place] [address] Specialist Cardiology 07/31/21 Nanette Wyatt PA-C [address] [facility] [address] [place] [address] Specialist Cardiology 07/31/21 Sunita Sanchez NP [address] [place] [address] Nurse Practitioner Cardiology 10/20/23 documented as of this encounter
--- OUTSIDE RECORDS SUMMARY | 2024-07-20 03:29 | XMS_ITS | Encounter Summary ---
Author Organization [facility] Address [address] [place] [address] Care Team Providers Care Manager Of Customer Billing Name Role Phone Haja Donahue MD Primary Care Provider + [phone] Haja Donahue MD Primary Care Provider + [phone] Haja Donahue MD Unavailable [phone] Brent Ellis MD Unavailable [phone] Carlos Castañeda PA-C Primary Care Provider [phone] Nicky Miller Unavailable Unavailable Mark Acuña MD Unavailable [phone] Nanette Wyatt PA-C Unavailable Sunita Sanchez NP Unavailable [phone] Encounter Details Date Type Department Care Team Description 04/24/2019 Hospital Medical Records [address] [place] [address] Social History Tobacco Use Types Packs/Day Years [...] filedocumented in this encounter Care Teams Manager Of Customer Billing Relationship Specialty Start Date End Date Haja Donahue MD [address] [place] [address] PCP - General Internal Medicine 01/30/19 04/03/20 Haja Donahue MD [address] [place] [address] PCP - General 04/04/20 10/29/20 Carlos Castañeda PA-C [address] [place] [address] PCP - General Internal Medicine 10/30/20 Haja Donahue MD [address] [place] [address] Internal Medicine 04/04/20 Brent Ellis MD [address] [place] [address] Seals Engraver Cardiovascular Disease 07/16/20 Nicky Miller PA [address] [place] [address] Specialist Cardiology 02/06/21 11/11/23 Mark Acuña MD [address] [address] Specialist Cardiology 07/31/21 Nanette Wyatt PA-C [address] [address] Specialist Cardiology 07/31/21 Sunita Sanchez NP [address] [place] [address] Nurse Practitioner Cardiology 10/20/23 documented as of this encounter
--- OUTSIDE RECORDS SUMMARY | 2024-07-20 03:29 | XMS_ITS | Encounter Summary ---
Author Organization [facility] Address [address] [place] [address] Care Team Providers Care Dental Appliance Mechanic Name Role Phone Carlos Castañeda Primary Care Provider [phone] Reason for Referral * Imaging (Routine) - Pending Review Specialty Diagnoses / Procedures Referred By Feng t Referred To Contact Radiology Diagnoses Osteopenia of left hip Procedures BD Bone Density DXA Axial Skeleton Rochelle Parks PA [address] [place] [address] Phone: tel: fax: [address] Phone: tel: Referral ID Status Reason Start Date Expiration Date V isits Requested Visits Authorized [id number] Pending Review 06/29/2024 06/29/2025 1 1 Reason for Visit * Reason Comments Follow-up Med review Encounter Details Date Type Department Care Team (Late st Contact Info) Description 06/29/2024 1:15 PM EST Office Visit Adult Medicine [address] [phone] Rochelle Parks PA [address] [place] [address] Primary hypertension (Primary Dx); Pure hypercholesterolemia; Other specified hypothyroidism; RLS (restless legs syndrome); Migraine with aura and without status migrainosus, not intractable; Vertigo; Vitamin B 12 deficiency; Vitamin D deficiency; Stage 3b chronic kidney disease (CMS/HCC); Gastroesophageal reflux disease without esophagitis; Overactive bladder; Osteopenia of left hip; Family history of diabetes mellitus Social History Tobacco Use Types Packs/Day Years Used Date Smoking Tobacco: Never Smokeless Tobacco: Never Tobacco Cessation:Counseling Given: Not Answered Alcohol Use Standard Drinks/Week Comments Not Currently 0 (1 standard drink = 0.6 oz pur e alcohol) Comments Unknown Sex and Gender Information Value Date Recorded Sex Assigned at Not on file Legal Sex Female 1:47 AM EST Gender Identity Not on file Sexual Orientation Not on file documented as of this encounter Last Filed Vital Signs Vital Sign Reading Time Taken Comments Blood Pressure 120/52 06/29/2024 10:12 AM EST Pulse 68 06/29/2024 10:12 AM EST Temperature 36.7 ??C (98 ??F) 06/29/2024 10:12 AM EST Respiratory Rate 12 06/29/2024 10:12 AM EST Oxygen Saturation - - Inhaled Oxygen Concentration - - Weight 86.3 kg (190 lb 3.2 oz) 06/29/2024 10:12 AM EST Height 162.6 cm (5' 4 ) 06/29/2024 10:12 AM EST Body Mass Index 32.65 06/29/2024 10:12 AM EST documented in this encounter Ordered Prescriptions Prescription Sig Dispense Quantity Refills Last Filled Start Date End Date albuterol HFA (ProAir HFA) 90 mcg/actuation inhaler Inhale 1 puff by mouth every 6 (six) hours if needed for wheezing or shortness of breath. 8.5 g 06/29/2024 metoprolol succinate (TOPROL-XL) 100 mg 24 hr tablet Take 1 tablet (100 mg total) by mouth 1 (one) time each day. Do not crush or chew. 90 tablet 1 06/29/2024 rOPINIRole (REQUIP) 0.25 mg tabletIndications: restless leg syndrome Take 1 tablet (0.25 mg total) by mouth 2 (two) times a day. 180 tablet 1 06/29/2024 zonisamide (ZONEGRAN) 100 mg capsule Take 1 Capsule by mouth 2 times daily as needed (nausea). 180 capsule 1 06/29/2024 tolterodine LA (DETROL LA) 4 mg 24 hr capsule Take 1 capsule (4 mg total) by mouth 1 (one) time each day. Do not crush, chew, or split. 90 capsule 1 06/29/2024 spironolactone (Aldactone) 50 mg tablet Take 1 tablet (50 mg total) by mouth 1 (one) time each day. 90 each 1 06/29/2024 ondansetron (ZOFRAN) 4 mg tablet Take 1 tablet (4 mg total) by mouth every 8 (eight) hours if needed for nausea. 21 tablet 2 06/29/2024 omeprazole (PriLOSEC) [address] capsule Take 1 capsule (20 mg total) by mouth 1 (one) time each day. Do not crush or chew. 90 capsule 1 06/29/2024 meclizine (ANTIVERT) 25 mg tablet Take 1 Tablet by mouth 3 times daily as needed (vertigo). 30 tablet 06/29/2024 lidocaine (LIDODERM) 5 % patch Apply topically 1 (one) time each day. Apply for no more than 12 hours in any 24 hour period 28 patch 06/29/2024 levothyroxine (SYNTHROID, LEVOTHROID) 75 mcg tablet Take 1 tablet (75 mcg total) by mouth 1 (one) time each day. 90 tablet 06/29/2024 cyclobenzaprine (FLEXERIL) 10 mg tablet Take 1 tablet (10 mg total) by mouth 2 (two) times a day if needed for muscle spasms. 30 tablet 5 06/29/2024 atorvastatin (LIPITOR) 20 mg tablet Take 1 tablet (20 mg total) by mouth 1 (one) time each day. 90 tablet 06/29/2024 aspirin 81 mg EC tablet Take 1 tablet (81 mg total) by mouth 1 (one) time each day. 90 tablet 06/29/2024 amLODIPine (NORVASC) 10 mg tablet Take 1 tablet (10 mg total) by mouth 1 (one) time each day. 90 tablet 1 06/29/2024 documented in this encounter Progress Notes * [facility] - 06/29/2024 1:15 PM EST CHIEF COMPLAINT: Follow-up (Med review) IDENTIFIER: Lauren Lemos is a 69 y.o. old female. HPI: Patient is a 69-year-old female who presents to the office today for a medication review. She has hypertension, hyperlipidemia, hypothyroidism, vitamin D deficiency, vitamin B12 deficiency, GERD, CKD, overactive bladder, migraine headaches, vertigo, chronic nausea, RLS, osteopenia. She needs a refill on most medications today. 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) 06/18/2024 Attention deficit hyperactivity disorder 06/18/2024 Deficiency of other specified B group vitamins 06/18/2024 retirement (current) use of aspirin 06/18/2024 retirement (current) use of inhaled steroids 06/18/2024 Presence of intraocular lens 06/18/2024 Personal history of healed traumatic fracture 06/18/2024 History of fall 06/18/2024 Depression 03/09/2024 Hyperlipidemia 03/09/2024 Hypothyroidism 03/09/2024 Migraine 03/09/2024 RLS (restless legs syndrome) 03/09/2024 Dyspnea 09/06/2023 Chest pain 06/15/2022 Syncope 06/15/2022 Bilateral leg edema 02/06/2021 LOC (loss of consciousness) ([facility]) 05/07/2020 Anxiety 05/04/2020 Chronic back pain 05/04/2020 GERD (gastroesophageal reflux disease) 05/04/2020 Hypertension 05/04/2020 Overactive bladder 05/04/2020 Shoulder pain, left 05/04/2020 Vitamin B 12 deficiency 05/04/2020 Vitamin D deficiency 04/19/2019 CKD (chronic kidney disease) stage 3, GFR 30-59 ml/min ([facility]) 08/24/2018 Osteoarthritis 09/08/2016 Glaucoma 08/14/2016 Osteopenia 11/06/2015 Past Surgical History: Procedure Laterality Date APPENDECTOMY PROCEDURE: HISTORICAL APPENDECTOMY SECTION PROCEDURE: HISTORICAL DELIVERY SECTION PROCEDURE: HISTORICAL FEMUR FRACTURE SURGERY Right 2005 PROCEDURE: OH OPEN TX FEMORAL FRACTURE DISTAL MED/LAT CONDYLE KNEE SURGERY Right 11/2017 PROCEDURE: HISTORICAL KNEE SURGERY; COMMENT: arthroscopy LEG SURGERY Right 2015 PROCEDURE: HISTORICAL LEG SURGERY; COMMENT: femur fracture ROTATOR CUFF REPAIR Right PROCEDURE: HISTORICAL ROTATOR CUFF REPAIR SHOULDER SURGERY Right 2014 PROCEDURE: HISTORICAL SHOULDER SURGERY SOCIAL HISTORY: Social History Tobacco Use Smoking status: Never Smokeless tobacco: Never Substance Use Topics Alcohol use: Not Currently FAMILY HISTORY: Family History Problem Relation Name Age of Onset Lung cancer Father Lung cancer Mother Breast cancer Aunt 50.00 Dementia Aunt Other (Other: Systemic lupus) Sister Diabetes Brother MEDICATIONS DISCONTINUED/REORDERED: Medications Discontinued During This Encounter Medication Reason albuterol HFA (PROVENTIL HFA;VENTOLIN HFA) 108 (90 Base) MCG/ACT inhaler Duplicate order zonisamide (ZONEGRAN) 100 mg capsule Reorder rOPINIRole (REQUIP) 0.25 mg tablet Reorder ondansetron (ZOFRAN) 4 mg tablet Reorder omeprazole (PriLOSEC) [address] capsule Reorder metoprolol succinate (TOPROL-XL) 100 mg 24 hr tablet Reorder meclizine (ANTIVERT) 25 mg tablet Reorder lidocaine (LIDODERM) 5 % patch Reorder levothyroxine (SYNTHROID, LEVOTHROID) 75 mcg tablet Reorder cyclobenzaprine (FLEXERIL) 10 mg tablet Reorder atorvastatin (LIPITOR) 20 mg tablet Reorder aspirin 81 mg EC tablet Reorder amLODIPine (NORVASC) 10 mg tablet Reorder spironolactone (Aldactone) 50 mg tablet Reorder tolterodine LA (DETROL LA) 4 mg 24 hr capsule Reorder ACTIVE MEDICATIONS: Outpatient Medications Marked as Taking for the 06/29/24 encounter (Office Visit) with [facility] Medication Sig Dispense Refill amLODIPine (NORVASC) 10 mg tablet Take 1 tablet (10 mg total) by mouth 1 (one) time each day. 90 tablet 1 ascorbic acid (VITAMIN C) 250 mg tablet Take 1 Tab by mouth daily. aspirin 81 mg EC tablet Take 1 tablet (81 mg total) by mouth 1 (one) time each day. 90 tablet 1 atorvastatin (LIPITOR) 20 mg tablet Take 1 tablet (20 mg total) by mouth 1 (one) time each day. 90 tablet 1 blood sugar diagnostic (FreeStyle Lite Strips) test strip Use to check blood sugar once daily blood-glucose meter kit Use to check blood sugar once daily calcium carbonate-vitamin D3 600 mg-5 mcg (200 unit) capsule Take by mouth daily. cholecalciferol (VITAMIN D-3) 10 mcg (400 unit) tablet Take by mouth daily. cyanocobalamin (VITAMIN B-12) 1,000 mcg tablet Take 1,000 mcg by mouth daily. cyclobenzaprine (FLEXERIL) 10 mg tablet Take 1 tablet (10 mg total) by mouth 2 (two) times a day ifneeded for muscle spasms. 30 tablet 5 dextromethorphan-guaifenesin 20-200 mg/10 mL liquid in packet Take 20 mg by mouth every 6 hours as needed for Other (cough). - Oral FREESTYLE LANCETS MISC Use to check blood sugar once daily levothyroxine (SYNTHROID, LEVOTHROID) 75 mcg tablet Take 1 tablet (75 mcg total) by mouth 1 (one) time each day. 90 tablet 1 lidocaine (LIDODERM) 5 % patch Apply topically 1 (one) time each day. Apply for no more than 12 hours in any 24 hour period 28 patch 5 meclizine (ANTIVERT) 25 mg tablet Take 1 Tablet by mouth 3 times daily as needed (vertigo). 30 tablet 5 metoprolol succinate (TOPROL-XL) 100 mg 24 hr tablet Take 1 tablet (100 mg total) by mouth 1 (one) time each day. Do not crush or chew. 90 tablet 1 multivitamin tablet Take by mouth daily. omeprazole (PriLOSEC) [address] capsule Take 1 capsule (20 mg total) by mouth 1 (one) time each day.Do not crush or chew. 90 capsule 1 ondansetron (ZOFRAN) 4 mg tablet Take 1 tablet (4 mg total) by mouth every 8 (eight) hours if needed for nausea. 21 tablet 2 rOPINIRole (REQUIP) 0.25 mg tablet Take 1 tablet (0.25 mg total) by mouth 2 (two) times a day. 180 tablet 1 spironolactone (Aldactone) 50 mg tablet Take 1 tablet (50 mg total) by mouth 1 (one) time each day.90 each 1 tolterodine LA (DETROL LA) 4 mg 24 hr capsule Take 1 capsule (4 mg total) by mouth 1 (one) time each day. Do not crush, chew, or split. 90 capsule 1 zonisamide (ZONEGRAN) 100 mg capsule Take 1 Capsule by mouth 2 times daily as needed (nausea). 180 capsule 1 [DISCONTINUED] albuterol HFA (PROVENTIL HFA;VENTOLIN HFA) 108 (90 Base) MCG/ACT inhaler [DISCONTINUED] amLODIPine (NORVASC) 10 mg tablet Take 1 tablet (10 mg total) by mouth 1 (one) time each day. [DISCONTINUED] aspirin 81 mg EC tablet Take 81 mg by mouth daily. [DISCONTINUED] atorvastatin (LIPITOR) 20 mg tablet Take 1 Tablet by mouth daily. [DISCONTINUED] cyclobenzaprine (FLEXERIL) 10 mg tablet TAKE 1 TABLET BY MOUTH TWICE A DAY NEEDEDFOR MUSCLE SPASMS [DISCONTINUED] levothyroxine (SYNTHROID, LEVOTHROID) 75 mcg tablet Take 1 Tablet by mouth daily. [DISCONTINUED] lidocaine (LIDODERM) 5 % patch Place 1 Patch onto the skin every 24 hours for 14 days. Apply for no more than 12 hours in any 24 hour period. [DISCONTINUED] meclizine (ANTIVERT) 25 mg tablet Take 1 Tablet by mouth 3 times daily as needed (vertigo). [DISCONTINUED] metoprolol succinate (TOPROL-XL) 100 mg 24 hr tablet Take 1 Tablet by mouth daily. [DISCONTINUED] omeprazole (PriLOSEC) [address] capsule Take 1 Capsule by mouth daily. [DISCONTINUED] ondansetron (ZOFRAN) 4 mg tablet Take 1 Tablet by mouth every 8 hours as needed for Nausea. [DISCONTINUED] rOPINIRole (REQUIP) 0.25 mg tablet Take 1 Tablet by mouth 2 times daily. [DISCONTINUED] spironolactone (Aldactone) 50 mg tablet Take 1 tablet (50 mg total) by mouth 1 (one)time each day. 90 each 3 [DISCONTINUED] tolterodine LA (DETROL LA) 4 mg 24 hr capsule Take 1 capsule (4 mg total) by mouth 1(one) time each day. Do not crush, chew, or split. 90 capsule 1 [DISCONTINUED] zonisamide (ZONEGRAN) 100 mg capsule Take 1 Capsule by mouth 2 times daily as needed(nausea). ALLERGIES: Allergies Allergen Reactions Gluten Gluten allergy Mushroom Throat closes PHYSICAL EXAM: Blood pressure 120/52, pulse 68, temperature 36.7 ??C (98 ??F), temperature source Temporal, resp. rate 12, height 1.626 m (64 ), weight 86.3 kg (190 lb 3.2 oz). Body mass index is 32.65 kg/m??. BMI is greater than 25.0 (above the normal range) - see Plan APPEARANCE: Alert and in no acute distress HEART: RRR with normal S1 and S2, no murmurs, no gallops LUNG: Clear to auscultation EXTREMITIES: No edema NEURO: Awake, alert LABS: Ordered Component Latest Ref Rng & Units 10/27/2023 10/27/2023 10/27/2023 10/27/2023 10:04 AM 10:04 AM 10:04 AM 10:04 AM PROTEIN, TOTAL 6.0 - 8.0 G/dL 6.8 Albumin 3.2 - 5.0 G/dL 3.9 Bilirubin, total 0.0 - 1.4 mg/dL 0.5 BILIRUBIN, DIRECT 0.0 - 0.3 mg/dL 0.1 BILIRUBIN, INDIRECT 0.0 - 1.1 mg/dL 0.4 AST (SGOT) 10 - 42 U/L 15 ALT (SGPT) 10 - 60 U/L 20 Alk Phos 42 - 121 U/L 118 Cholesterol 0 - 200 mg/dL 180 TRIGLYCERIDES 0 - 150 mg/dL 71 HDL >40 mg/dL 58 LDL 0 - 100 mg/dL 108 (H) TC-HDLC RATIO 0 - 4.4 mg/dL 3.1 TSH 0.40 - 4.00 uIU/ml 2.58 HbA1C <6.5 % 4.9 ESTIMATED AVERAGE GLUCOSE mg/dL 94 Component Latest Ref Rng & Units 10/27/2023 10/27/2023 10:04 AM 10:04 AM VITAMIN D, 25-HYDROXY 30 - 80 ng/mL 28 (L) VITAMIN B12 250 - 900 pg/mL 315 IMAGING: None IMPRESSION/PLAN: 1. Primary hypertension Comprehensive metabolic panel 2. Pure hypercholesterolemia Lipid panel with reflex to direct LDL 3. Other specified hypothyroidism Thyroid stimulating hormone with reflex to free t4 and free t3 4. RLS (restless legs syndrome) 5. Migraine with aura and without status migrainosus, not intractable 6. Vertigo 7. Vitamin B 12 deficiency Vitamin B12 8. Vitamin D deficiency Vitamin D 25 hydroxy 9. Stage 3b chronic kidney disease (CMS/HCC) 10. Gastroesophageal reflux disease without esophagitis 11. Overactive bladder 12. Osteopenia of left hip BD Bone Density DXA Axial Skeleton 13. Family history of diabetes mellitus Hemoglobin A1c Medication and lab orders: Orders Placed This Encounter Procedures BD Bone Density DXA Axial Skeleton Thyroid stimulating hormone with reflex to free t4 and free t3 Comprehensive metabolic panel Lipid panel with reflex to direct LDL Vitamin B12 Vitamin D 25 hydroxy Hemoglobin A1c Other orders: BD BONE DENSITY DXA AXIAL SKELETON 1. Blood pressure is controlled today. Continue current antihypertensives. 2. Hyperlipidemia. Continue Lipitor 20 mg daily. Labs ordered. 3. Hypothyroidism. Continue on current dose of levothyroxine. Lab ordered. 4. RLS stable. Continue on ropinirole. 5/6. Chronic migraine headaches, vertigo, nausea overall stable. Continue on medications PRN. 7/8. Vitamin B12 and vitamin D deficiency. Continue supplements. 9. CKD. Avoid NSAID. Labs ordered. 10. Stable. Continue on omeprazole daily. 11. Stable. Continue on Detrol. 12. Osteopenia. Continue calcium and vitamin D supplement. Bone density scan ordered again. 13. Hemoglobin A1c ordered. I have applied the code G2211 to this patient???s visit as the primary care provider dealing with (hypertension, hyperlipidemia, hypothyroidism, vitamin D deficiency, vitamin B12 deficiency, GERD, CKD, overactive bladder, migraine headaches, vertigo, chronic nausea, RLS, osteopenia) leading to the extensive work up, and management associated with the medical care of this patient. I have reviewed all information as it pertains to the management of this patient for final approval. Advised the patient to call me if any problems. Patient understands the plan. Patient is in agreement with the plan. Today's documentation was made using voice recognition software.This note may contain grammatical errors secondary to this software. Rochelle Parks PA-C documented in this encounter Plan of Treatment Upcoming Encounters Date Type Department Care Team (Late st Contact Info) Description 08/01/2024 10:30 AM EST Consult General Surgery - [place] [address] [id number] Ravindra Sarmiento, DO 175 [facility] [address] [place] [address] Scheduled Orders Name Type Priority Associated Diagnoses Orde r Schedule BD Bone Density DXA Axial Skeleton Imaging Routine Osteopenia of left hip 1 Occurrences starting 06/29/2024 until 06/29/2025 documented as of this encounter Results * Hemoglobin A1c (06/29/2024 11:28 AM EST) [facility] Hemoglobin A1C 5.2 <6.5 % LAB CHEMISTRY METHOD 06/29/2024 9:07 PM EST [facility] Mean Bld Glu Estim. 103 mg/dL LAB CHEMISTRY METHOD 06/29/2024 9:07 PM EST [facility] Blood Venous blood specimen / Unknown Venipuncture / Unknown 06/29/2024 11:28 AM EST 06/29/2024 11:28 AM EST us Rochelle Parks PA LAB BLOOD ORDERABLES Final Resul t Performing Organization Address City/[facility]/ZIP Co de Phone Number [facility] [address] [place] [address], [place] [phone] * Vitamin D 25 hydroxy (06/29/2024 11:28 AM EST) [facility] Vit D, 25-Hydroxy 30.6 30.0 - 80.0 ng/mL LAB CHEMISTRY METHOD 06/29/2024 3:01 PM EST [facility] Blood Venous blood specimen / Unknown Venipuncture / Unknown 06/29/2024 11:28 AM EST 06/29/2024 11:28 AM EST us [employer] Parks PA LAB BLOOD ORDERABLES Final Resul t Performing Organization Address [facility]/ZIP Co de Phone Number [facility] [address] [place] [address], [place] [phone] * Vitamin B12 (06/29/2024 11:28 AM EST) [facility] Vitamin B-12 363 250 - 900 pcg/mL LAB CHEMISTRY METHOD 06/29/2024 2:36 PM EST [facility] Blood Venous blood specimen / Unknown Venipuncture / Unknown 06/29/2024 11:28 AM EST 06/29/2024 11:28 AM EST us Rochelle Charly [place] LAB BLOOD ORDERABLES Final Resul t Performing Organization Address [facility]/ZIP Co de Phone Number [facility] [address] [place] [address], [place] [phone] * (ABNORMAL) Lipid panel with reflex to direct LDL (06/29/2024 11:28 AM EST) Cholesterol 270(H) 0 - 200 mg/dL LAB CHEMISTRY METHOD 06/29/2024 2:13 PM [facility] Triglycerides 135 0 - 150 mg/dL LAB CHEMISTRY METHOD 06/29/2024 2:13 PM [facility] HDL 57 >=40 mg/dL LAB CHEMISTRY METHOD 06/29/2024 2:13 PM [facility] LDL Calculated 186(H) 0 - 100 mg/dL LAB CHEMISTRY METHOD 06/29/2024 2:13 PM [facility] VLDL Cholesterol Robert 27 mg/dL LAB CHEMISTRY METHOD 06/29/2024 2:13 PM [facility] Non HDL Chol. (LDL+VLDL) 213(H) <145 mg/dL LAB CHEMISTRY METHOD 06/29/2024 2:13 PM [facility] Chol/HDL Ratio 4.7(H) 0.0 - 4.4 LAB CHEMISTRY METHOD 06/29/2024 2:13 PM [facility] Blood Venous blood specimen / Unknown Venipuncture / Unknown 06/29/2024 11:28 AM EST 06/29/2024 11:28 AM EST us Rochelle Charly [place] LAB BLOOD ORDERABLES Final Resul t [facility] [address] [place] [address], * (ABNORMAL) Comprehensive metabolic panel (06/29/2024 11:28 AM EST) Sodium 138 133 - 145 mmol/L LAB CHEMISTRY METHOD 06/29/2024 2:13 PM EST [facility] Potassium 4.6 3.5 - 5.5 mmol/L LAB CHEMISTRY METHOD 06/29/2024 2:13 PM EST [facility] Chloride 109 96 - 110 mmol/L LAB CHEMISTRY METHOD 06/29/2024 2:13 PM [facility] CO2 25 21 - 32 mmol/L LAB CHEMISTRY METHOD 06/29/2024 2:13 PM [facility] Anion Gap 4 3 - 11 LAB CHEMISTRY METHOD 06/29/2024 2:13 PM [facility] Glucose 80 70 - 100 mg/dL LAB CHEMISTRY METHOD 06/29/2024 2:13 PM [facility] BUN 22 5 - 25 mg/dL LAB CHEMISTRY METHOD 06/29/2024 2:13 PM [facility] Creatinine 1.07 0.50 - 1.10 mg/dL LAB CHEMISTRY METHOD 06/29/2024 2:13 PM [facility] eGFR 57(L) >=60 mL/min/1. 73m2 LAB CHEMISTRY METHOD 06/29/2024 2:13 PM [facility] Comment:Calculation based on the??Chronic Kidney Disease Epidemiology Collaboration (CKD-EPI) equation refit??without adjustment for race. BUN/Creatinine Ratio 20.6 LAB CHEMISTRY METHOD 06/29/2024 2:13 PM [facility] Calcium 8.9 8.5 - 10.5 mg/dL LAB CHEMISTRY METHOD 06/29/2024 2:13 PM [facility] AST (SGOT) 40 10 - 42 unit/L LAB CHEMISTRY METHOD 06/29/2024 2:13 PM [facility] ALT (SGPT) 104(H) 10 - 60 unit/L LAB CHEMISTRY METHOD 06/29/2024 2:13 PM [facility] Alkaline Phosphatase 155(H) 42 - 121 unit/L LAB CHEMISTRY METHOD 06/29/2024 2:13 PM [facility] Total Protein 6.9 6.0 - 8.0 g/dL LAB CHEMISTRY METHOD 06/29/2024 2:13 PM [facility] Albumin 3.6 3.2 - 5.0 g/dL LAB CHEMISTRY METHOD 06/29/2024 2:13 PM [facility] Total Bilirubin 0.5 0.0 - 1.4 mg/dL LAB CHEMISTRY METHOD 06/29/2024 2:13 PM [facility] Blood Venous blood specimen / Unknown Venipuncture / Unknown 06/29/2024 11:28 AM EST 06/29/2024 11:28 AM EST us Rochelle Parks PA LAB BLOOD ORDERABLES Final Resul t Performing Organization Address [facility]/ZIP Co de Phone Number [facility] [address] [place] [address], [place] [phone] * Thyroid stimulating hormone with reflex to free t4 and free t3 (06/29/2024 11:28 AM EST) TSH 2.24 0.40 - 4.00 mcIU/mL LAB CHEMISTRY METHOD 06/29/2024 3:01 PM EST [facility] Blood Venous blood specimen / Unknown Venipuncture / Unknown 06/29/2024 11:28 AM EST 06/29/2024 11:28 AM EST us Rochelle Parks PA LAB BLOOD ORDERABLES Final Resul t [facility] [address] [place] [address], documented in this encounter Visit Diagnoses Diagnosis Primary hypertension- Primary Unspecified essential hypertension Pure hypercholesterolemia Other specified hypothyroidism RLS (restless legs syndrome) Restless legs syndrome (RLS) Migraine with aura and without status migrainosus, not intractable Vertigo Dizziness and giddiness Vitamin B 12 deficiency Other B-complex deficiencies Vitamin D deficiency Stage 3b chronic kidney disease (CMS/HCC) Gastroesophageal reflux disease without esophagitis Esophageal reflux Overactive bladder Hypertonicity of bladder Osteopenia of left hip Family history of diabetes mellitus documented in this encounter Discontinued Medications Medication Sig Discontinue Reason Start Date End Da te albuterol HFA (PROVENTIL HFA;VENTOLIN HFA) 108 (90 Base) MCG/ACT inhaler Duplicate order 06/29/2024 zonisamide (ZONEGRAN) 100 mg capsule Take 1 Capsule by mouth 2 times daily as needed (nausea). Reorder 10/18/2023 06/29/2024 rOPINIRole (REQUIP) 0.25 mg tablet Take 1 Tablet by mouth 2 times daily. Reorder 10/18/2023 06/29/2024 ondansetron (ZOFRAN) 4 mg tablet Take 1 Tablet by mouth every 8 hours as needed for Nausea. Reorder 10/18/2023 06/29/2024 omeprazole (PriLOSEC) [address] capsule Take 1 Capsule by mouth daily. Reorder 10/18/2023 06/29/2024 metoprolol succinate (TOPROL-XL) 100 mg 24 hr tablet Take 1 Tablet by mouth daily. Reorder 10/18/2023 06/29/2024 meclizine (ANTIVERT) 25 mg tablet Take 1 Tablet by mouth 3 times daily as needed (vertigo). Reorder 10/18/2023 06/29/2024 lidocaine (LIDODERM) 5 % patch Place 1 Patch onto the skin every 24 hours for 14 days. Apply for no more than 12 hours in any 24 hour period. Reorder 10/18/2023 06/29/2024 levothyroxine (SYNTHROID, LEVOTHROID) 75 mcg tablet Take 1 Tablet by mouth daily. Reorder 10/18/2023 06/29/2024 cyclobenzaprine (FLEXERIL) 10 mg tablet TAKE 1 TABLET BY MOUTH TWICE A DAY NEEDED FOR MUSCLE SPASMS Reorder 12/08/2023 06/29/2024 atorvastatin (LIPITOR) 20 mg tablet Take 1 Tablet by mouth daily. Reorder 10/18/2023 06/29/2024 aspirin 81 mg EC tablet Take 81 mg by mouth daily. Reorder 06/29/2024 amLODIPine (NORVASC) 10 mg tablet Take 1 tablet (10 mg total) by mouth 1 (one) time each day. Reorder 03/21/2024 06/29/2024 spironolactone (Aldactone) 50 mg tablet Take 1 tablet (50 mg total) by mouth 1 (one) time each day. Reorder 04/26/2024 06/29/2024 tolterodine LA (DETROL LA) 4 mg 24 hr capsule Take 1 capsule (4 mg total) by mouth 1 (one) time each day. Do not crush, chew, or split. Reorder 05/22/2024 06/29/2024 documented as of this encounter Care Teams Dental Appliance Mechanic Relationship Specialty Start Date End Date Carlos Castañeda PA [address] [place] [address] PCP - General Internal Medicine 04/17/24 documented as of this encounter
--- OUTSIDE RECORDS SUMMARY | 2024-07-20 03:29 | XMS_ITS | Encounter Summary ---
Author Organization [facility] Address [address] [place] [address] Care Team Providers Care Tree Feller Name Role Phone Minh Ferrell MD Primary Care Provider Un available Haja Donahue MD Primary Care Provider + [phone] Haja Donahue MD Primary Care Provider + [phone] Haja Donahue MD Unavailable [phone] Brent Ellis MD Unavailable [phone] Carlos Castañeda PA-C Primary Care Provider Nicky Miller Unavailable Unavailable Mark Acuña MD Unavailable [phone] Nanette Wyatt PA-C Unavailable Sunita Sanchez NP Unavailable [phone] Encounter Details Date Type Department Care Team Description 11/29/2017 [facility] Medical Records [address] [place] [address] Social History Tobacco Use Types Packs/Day Years [...] on filedocumented in this encounter Care Teams Tree Feller Relationship Specialty Start Date End Date Minh Ferrell MD PCP - General Internal Medicine 08/30/15 01/29/19 Haja Donahue MD [address] [place] [address] PCP - General Internal Medicine 01/30/19 04/03/20 Haja Donahue MD [address] [place] [address] PCP - General 04/04/20 10/29/20 Carlos Castañeda PA-C [address] [place] [address] PCP - General Internal Medicine 10/30/20 Haja Donahue MD [address] [place] [address] Internal Medicine 04/04/20 Brent Ellis MD [address] [place] [address] Concrete Stone Fabricating Supervisor Cardiovascular Disease 07/16/20 Nicky Miller PA [address] [place] [address] Specialist Cardiology 02/06/21 11/11/23 Mark Acuña MD [address] [address] Specialist Cardiology 07/31/21 Nanette Wyatt PA-C [address] [address] Specialist Cardiology 07/31/21 Sunita Sanchez NP [address] [place] [address] Nurse Practitioner Cardiology 10/20/23 documented as of this encounter
--- OUTSIDE RECORDS SUMMARY | 2024-07-20 03:29 | XMS_ITS | Encounter Summary ---
Author Organization [facility] Address [address] [place] [address] Care Team Providers Care Jamb Cutter Name Role Phone Minh Ferrell MD Primary Care Provider Un available Haja Donahue MD Primary Care Provider + [phone] Haja Donahue MD Primary Care Provider + [phone] Haja Donahue MD Unavailable [phone] Brent Ellis MD Unavailable [phone] Carlos Castañeda PA-C Primary Care Provider [phone] Nicky Miller Unavailable Unavailable Mark Acuña MD Unavailable [phone] Nanette Wyatt PA-C Unavailable Sunita Sanchez NP Unavailable [phone] Reason for Visit * Reason Onset Date Comments refill request 10/04/2018 Encounter Details Date Type Department Care Team Description 10/04/2018 Refill Adult Medicine [address] [address] Minh Ferrell MD refill request Social History Tobacco Use Types [...] encounter Miscellaneous Notes * Telephone Encounter - Leeann Cabello M.A. - 10/05/2018 2:41 PM EDT Last OV 08/24/18 Next OV 01/24/19 * Telephone Encounter - Sherine Napier - 10/04/2018 10:23 AM EDT Patient would like script to be: E-PRESCRIBED/FAXED TO PHARMACY WHEN WAS THE PATIENT'S LAST APPOINTMENT IN ADULT MEDICINE? 08-24-18 WHEN WAS THE LAST TIME THE PATIENT SAW THEIR PCP? Same as above Does patient have an upcoming appointment? Yes 01-24-19 (THE MEDICATION REQUESTED IS ON THE MED LIST ABOVE) One or some of the medications requested were on the HISTORICAL MED list Did you check the Pharmacy information above?: YES Patient wants: 90 -day supply Is this a mail order prescription request ? NO If the refill is from a FAXED refill request what is the RX # listed on the fax? N/A Patients current insurance carrier is: [place] / [place] / Product Type: MEDICARE [id number] documented in this encounter Plan of Treatment Not on file documented as of this encounter Visit Diagnoses Not on filedocumented in this encounter Care Teams Jamb Cutter Relationship Specialty Start Date End Date Minh Ferrell MD PCP - General Internal Medicine 08/30/15 01/29/19 Haja Donahue MD [address] [place] [address] PCP - General Internal Medicine 01/30/19 04/03/20 Haja Donahue MD [address] [place] [address] PCP - General 04/04/20 10/29/20 Carlos Castañeda PA-C [address] [place] [address] PCP - General Internal Medicine 10/30/20 Haja Donahue MD [address] [place] [address] Internal Medicine 04/04/20 Brent Ellis MD [address] [place] [address] Mine Supervisor Cardiovascular Disease 07/16/20 Nicky Miller PA [address] [place] [address] Specialist Cardiology 02/06/21 11/11/23 Mark Acuña MD [address] [address] Specialist Cardiology 07/31/21 Nanette Wyatt PA-C [address] [address] Specialist Cardiology 07/31/21 Sunita Sanchez NP [address] [place] [address] Nurse Practitioner Cardiology 10/20/23 documented as of this encounter
--- OUTSIDE RECORDS SUMMARY | 2024-07-20 03:29 | XMS_ITS | Encounter Summary ---
Author Organization [facility] Address [address] [place] [address] Care Team Providers Care Instrument Repair Supervisor Name Role Phone Haja Donahue MD Unavailable [phone] Brent Ellis MD Unavailable [phone] Carlos Castañeda PA-C Primary Care Provider [phone] Nicky Miller Unavailable Unavailable Mark Acuña MD Unavailable [phone] Nanette Wyatt PA-C Unavailable Sunita Sanchez NP Unavailable [phone] Encounter Details Date Type Department Care Team Description 11/19/2022 [facility] Medical Records [address] [place] [address] Bob Wren Social History Tobacco Use Types Packs/Day Years [...] suspected to have Coronavirus/COVID-19? No / Unsure 10/20/2022 8:47 AM EDT documented as of this encounter Plan of Treatment Not on file documented as of this encounter Visit Diagnoses Not on filedocumented in this encounter Care Teams Instrument Repair Supervisor Relationship Specialty Start Date End Date Carlos Castañeda PA-C [address] [place] [address] PCP - General Internal Medicine 10/30/20 Haja Donahue MD [address] [place] [address] Internal Medicine 04/04/20 Brent Ellis MD [address] [place] [address] Outside Machinist Helper Cardiovascular Disease 07/16/20 Nicky Miller PA [address] [place] [address] Specialist Cardiology 02/06/21 11/11/23 Mark Acuña MD [address] [place] [address] Specialist Cardiology 07/31/21 Nanette Wyatt PA-C [address] [place] [address] Specialist Cardiology 07/31/21 Sunita Sanchez NP [address] [place] [address] Nurse Practitioner Cardiology 10/20/23 documented as of this encounter
--- OUTSIDE RECORDS SUMMARY | 2024-07-20 03:29 | XMS_ITS | Encounter Summary ---
Author Organization [facility] Address [address] [place] [address] Care Team Providers Care Stranding Machine Operator Helper Name Role Phone Carlos Castañeda Primary Care Provider [phone] Encounter Details Date Type Department Care Team (Late st Contact Info) Description 07/11/2024 1:10 PM EST Ancillary Procedure [facility] - [facility] [address] [facility] [address] [place] [phone] Social History Tobacco Use Types Packs/Day Years [...] as of this encounter Plan of Treatment Upcoming Encounters Date Type Department Care Team (Late st Contact Info) Description 08/01/2024 10:30 AM EST Consult General Surgery - [place] [address] [place] [address] Ravindra Sarmiento, DO [address] [place] [address] documented as of this encounter Procedures Procedure Name Priority Date/Time Associated Diagnosis Comments CARDIAC DEVICE CHECK- REMOTE- MURJ Routine 07/11/2024 1:06 PM EST documented in this encounter Results * Cardiac device check - Remote- MURJ (07/11/2024 1:06 PM EST) Date Time Interrogation Session [id number] CV DEVICE CHECK Type Interrogation Session Remote Scheduled CV DEVICE CHECK Implantable Pulse Generator Heel Nailing Machine Operator BSX CV DEVICE CHECK Implantable Pulse Generator Type ILR CV DEVICE CHECK Implantable Pulse Generator Model [id number] CV DEVICE CHECK Implantable Pulse Generator Serial Number [id number] CV DEVICE CHECK Implantable Pulse Generator Implant Date [id number] CV DEVICE CHECK Battery Status Beginning of Service CV DEVICE CHECK Atrial Tachy Statistic AT/AF [place] Percent 0.00 CV DEVICE CHECK Date of Service 2024-07-14 CV DEVICE CHECK Anatomical Region Laterality Modality Device Interroga tion 06/26/2024 12:4 5 AM EST Impressions 07/11/2024 12:59 PM EST Normal Remote: No Events * This is a normal remote diagnostic device check * Alerts or events: None * Battery data was reviewed * Battery status: MVAIS * Presenting rhythm: SR 60's * Heart Rate Histograms reviewed Narrative Procedure Note Mark Acuña MD - 07/11/2024 IMPRESSION: Normal Remote: No Events * This is a normal remote diagnostic device check * Alerts or events: None * Battery data was reviewed * Battery status: MAVIS * Presenting rhythm: SR 60's * Heart Rate Histograms reviewed Mark Acuña MD CV IMPLANTABLE CARDIAC DEV ICE PROCEDURES Final Result documented in this encounter Visit Diagnoses Not on filedocumented in this encounter Care Teams Stranding Machine Operator Helper Relationship Specialty Start Date End Date Carlos Castañeda PA [address] [place] [address] PCP - General Internal Medicine 04/17/24 documented as of this encounter
--- OUTSIDE RECORDS SUMMARY | 2024-07-20 03:29 | XMS_ITS | Encounter Summary ---
Author Organization [facility] Address [address] [place] [address] Care Team Providers Care Recyclable Products Sorter Name Role Phone Haja Donahue MD Unavailable [phone] Brent Ellis MD Unavailable [phone] Carlos Castañeda PA-C Primary Care Provider [phone] Mark Acuña MD Unavailable [phone] Nanette Wyatt PA-C Unavailable Sunita Sanchez NP Unavailable [phone] Encounter Details Date Type Department Care Team Description 11/23/2023 [facility] Medical Records [address] [place], [place] [address] [place] [address] Social History Tobacco Use Types Packs/Day Years [...] Name Priority Date/Time Associated Diagnosis Comments OUTSIDE EKG Routine 11/23/2023 OUTSIDE PLAIN FILM Routine 11/23/2023 OUTSIDE LAB Routine 11/23/2023 OUTSIDE LAB Routine 11/23/2023 documented in this encounter Results * OUTSIDE PLAIN FILM (11/23/2023) Provider Default RADIOLOGY * OUTSIDE LAB (11/23/2023) Provider Default LAB * OUTSIDE LAB (11/23/2023) Provider Default LAB * OUTSIDE EKG (11/23/2023) Provider Default CARDIOLOGY documented in this encounter Visit Diagnoses Not on filedocumented in this encounter Care Teams Recyclable Products Sorter Relationship Specialty Start Date End Date Carlos Castañeda PA-C [address] [place] [address] PCP - General Internal Medicine 10/30/20 Haja Donahue MD [address] [place] [address] Internal Medicine 04/04/20 Brent Ellis MD [address] [place] [address] Dental Front Office Assistant Cardiovascular Disease 07/16/20 Mark Acuña MD [address] [address] Specialist Cardiology 07/31/21 Nanette Wyatt PA-C [address] [facility] [address] [place] [address] Specialist Cardiology 07/31/21 Sunita Sanchez NP [address] [place] [address] Nurse Practitioner Cardiology 10/20/23 documented as of this encounter
--- OUTSIDE RECORDS SUMMARY | 2024-07-20 03:29 | XMS_ITS | Encounter Summary ---
Author Organization [facility] Address [address] [place] [address] Care Team Providers Care Trucking Supervisor Name Role Phone Haja Donahue MD Unavailable [phone] Brent Ellis MD Unavailable [phone] Carlos Castañeda PA-C Primary Care Provider Nicky Miller Unavailable Unavailable Mark Acuña MD Unavailable [phone] Nanette Wyatt PA-C Unavailable Sunita Sanchez NP Unavailable [phone] Reason for Visit * Reason Onset Date Comments Device Check 03/03/2023 Encounter Details Date Type Department Care Team Description 03/03/2023 Telephone Cardio [facility] [address] [place] [address] [address] [place] [address] Brent Ellis MD [address] [place] [address] [address] [place] [address] Device Check Social History Tobacco Use Types Packs/Day Years [...] encounter Miscellaneous Notes * Telephone Encounter - María Paulinooche - 03/03/2023 9:30 AM EDT Called patient back and got answering maching. Left a message to call. * Telephone Encounter - Sukhjinder Glover - 03/03/2023 9:16 AM EDT Patient is calling stating she is wanting to know if she is still being monitored? Patient has questions for device clinic, please call. documented in this encounter Plan of Treatment Not on file documented as of this encounter Visit Diagnoses Not on filedocumented in this encounter Care Teams Trucking Supervisor Relationship Specialty Start Date End Date Carlos Castañeda PA-C [address] [place] [address] PCP - General Internal Medicine 10/30/20 Haja Donahue MD [address] [place] [address] Internal Medicine 04/04/20 Brent Ellis MD [address] [place] [address] Dr [address] [place] [address] Machine Oiler Cardiovascular Disease 07/16/20 Nicky Miller PA [address] [place] [address] Specialist Cardiology 02/06/21 11/11/23 Mark Acuña MD [address] [address] Specialist Cardiology 07/31/21 Nanette Wyatt PA-C [address] [address] Specialist Cardiology 07/31/21 Sunita Sanchez NP [address] [place] [address] Nurse Practitioner Cardiology 10/20/23 documented as of this encounter
--- OUTSIDE RECORDS SUMMARY | 2024-07-20 03:29 | XMS_ITS | Clinical Summary ---
Author Organization [facility] Address [address] [place] [address] Care Team Providers Care Comic Book Writer Name Role Phone Haja Donahue MD Unavailable [phone] Brent Ellis MD Unavailable [phone] Carlos Castañeda PA-C Primary Care Provider [phone] Mark Acuña MD Unavailable [phone] Nanette Wyatt PA-C Unavailable Sunita Sanchez NP Unavailable [phone] Allergies Active Allergy Reactions Severity Noted Date Comments Gluten Meal 02/01/2018 Gluten allergy Mushroom 09/26/2015 Throat closes Medications Medication Sig Dispensed Refills Start Date End Date Status Ascorbic Acid (VITAMIN C) 250 MG tablet Take 1 Tab by mouth daily. 0 Active vitamin B-12 (CYANOCOBALAMIN) 1000 MCG tablet Take 1,000 mcg by mouth daily. 0 Active spironolactone (ALDACTONE) 25 MG tablet Take 25 mg by mouth daily. 0 Active aspirin 81 MG EC tablet Take 81 mg by mouth daily. 0 Active Multiple Vitamins-Minerals (MULTIVITAMIN ADULT) Tab Take 1 Tablet by mouth daily. 0 Active Cholecalciferol (VITAMIN D-3) 10 MCG (400 UNIT) Tab Take 1 Tablet by mouth daily. 0 Active Calcium Carbonate (CALCIUM-CARB 600 OR) Take 1 Tablet by mouth daily. 0 Active tolterodine (DETROL LA) 4 MG 24 hr capsule Take 1 Capsule by mouth daily. 90 Capsule 1 10/18/2023 Active FreeStyle Lancets Misc Use to check blood sugar once daily 100 Each 5 10/27/2023 Active Blood Glucose Monitoring Suppl (FreeStyle Lite) Device Use to check blood sugar once daily 1 Each 0 10/27/2023 Active Glucose Blood (FREESTYLE LITE) Strip Use to check blood sugar once daily 100 Strip 5 10/27/2023 Active cyclobenzaprine (FLEXERIL) 10 MG tablet TAKE 1 TABLET BY MOUTH TWICE A DAY NEEDED FOR MUSCLE SPASMS 60 Tablet 0 12/08/2023 Active ALBUTEROL SULFATE 108 (90 Base) MCG/ACT Aero Soln 2 Puffs as needed. 0 01/10/2024 Active amlodipine (NORVASC) 10 MG tabletIndications:Pr imary hypertension Take 1 Tablet by mouth daily for 180 days. 30 Tablet 5 03/14/2024 09/10/2024 Active lidocaine (LIDODERM) 5 % Place 1 Patch onto the skin every 24 hours for 14 days. Apply for no more than 12 hours in any 24 hour period. 14 Patch 0 03/20/2024 Active ondansetron (Zofran) 4 MG tablet Take 1 Tablet by mouth every 8 hours as needed for Nausea. 21 Tablet 2 03/20/2024 Active atorvastatin (LIPITOR) 20 MG tablet Take 1 Tablet by mouth daily. 90 Tablet 1 04/03/2024 Active Meclizine HCl 25 MG Tab Take 1 Tablet by mouth 3 times daily as needed (vertigo). 30 Tablet 5 04/03/2024 Active ropinirole (REQUIP) 0.25 MG tablet Take 1 Tablet by mouth 2 times daily. 180 Tablet 1 04/03/2024 Active zonisamide (ZONEGRAN) 100 MG capsule Take 1 Capsule by mouth 2 times daily as needed (nausea). 60 Capsule 5 04/03/2024 Active levothyroxine (SYNTHROID, LEVOTHROID) 75 MCG tablet Take 1 Tablet by mouth daily. 90 Tablet 1 04/03/2024 Active omeprazole (PRILOSEC) 20 MG capsule Take 1 Capsule by mouth daily. 90 Capsule 1 04/03/2024 Active metoprolol (TOPROL-XL) 100 MG 24 hr tablet Take 1 Tablet by mouth daily. 90 Tablet 1 04/03/2024 Active Active Problems Problem Noted Date Persistent left SVC (superior vena cava) 03/14/2024 Last Assessment & Plan: The patient was incidentally noted to have a persistent left-sided SVC on her recent cardiac CT scan. According to the cardiac CT scan report, the left-sided SVC drains into the posterior medial right atrium adjacent to the coronary sinus. The patient does not have any evidence of other accompanying cardiac or aortic arch anomalies given the absence of any significant structural heart disease on the echocardiogram done in October 2021 and the absence of any significant structural heart disease or thoracic aorta abnormalities on the cardiac CT scan done in January 2024. Her persistent left-sided SVC is unlikely to cause her any symptoms. I explained to the patient the nature of her persistent left-sided SVC. I did also explain to her that she will need to alert her medical providers of the presence of her persistent left-sided SVC if she ever needs a pacemaker in the future or if she needs any upper extremity/chest vascular procedures in the future. Snoring 03/14/2024 Last Assessment & Plan: The patient has a history of nighttime snoring. She also has a history of arterial hypertension. Will proceed with a sleep study to rule out sleep apnea. Chest pain 06/15/2022 Last Assessment & Plan: The patient has a history of episodes of atypical chest discomfort. Her symptoms occur at rest and are not induced or worsened by exertion. Echocardiogram in October 2021 and repeat echocardiogram in 2023 did not show any significant structural heart disease. Cardiac CT scan done in January 2024 which did not show any significant coronary artery disease. As such, the patient does not have any significant atherosclerotic coronary artery disease to explain her episodes of atypical chest discomfort. The cardiac CT scan did show evidence of a persistent left-sided SVC which is unlikely to be the cause of the patient's symptoms. Of note, the patient did have evidence of elevated blood pressures during her recent episode of chest discomfort for which she visited the [facility] emergency room. It is possible her episodes of chest discomfort may be due to episodes of elevated blood pressures. Will continue to optimize her blood pressure control. Will also proceed with a workup to rule out secondary causes of hypertension. Syncope 06/15/2022 Last Assessment & Plan: Patient with history of recurrent episodes of syncope. She has a [employer] ILR that was placed in July [address] Acuña. She had a remote device check in December 2021 which was normal. Bilateral leg edema 02/06/2021 Last Assessment & Plan: Mild bilateral lower extremity edema noted on exam today. She will continue her plans to complete bilateral venous duplex to rule out venous insufficiency as a cause of her symptoms. I recommended she obtain compression stockings. She reports symptoms improved with elevation. She was unable to tolerate low-dose diuretic as she self discontinued the medication due to significant urinary frequency. I will notify her of the results as soon as they become available. Depending on the results of her testing, we can consider that her lower extremity edema would be related to the amlodipine and can consider transitioning her to a different antihypertensive. Hypertension 05/04/2020 Last Assessment & Plan: The patient has a history of arterial hypertension. She is currently on amlodipine 7.5 mg orally daily, Toprol 100 mg orally daily, and spironolactone 25 mg orally daily. She recently had an episode of severe hypertension for which she was treated at the [facility] emergency room. She has continued to have evidence of elevated blood pressures. On today's visit, her blood pressure was found to be 150/80 mmHg. As such, at this point, we will proceed as follows: 1. Increase amlodipine to 10 mg daily. 2. Continue current dose of Toprol and spironolactone. 3. Proceed with a workup to rule out secondary causes of hypertension. This workup will include laboratory testing with a chemistry panel to rule out worsening renal function; TSH level to evaluate her thyroid hormone control in the setting of her known hypothyroidism; and plasma) level to rule out pheochromocytoma. Also, will order a renal artery duplex to rule out renal artery stenosis. Finally, will order a sleep study to rule out sleep apnea. 4. The patient will create a blood pressure log at home and will contact our office if her blood pressure remains elevated after the adjustment in the dose of the amlodipine. Shoulder pain, left 05/04/2020 Overactive bladder 05/04/2020 Chronic back pain 05/04/2020 Vitamin B 12 deficiency 05/04/2020 GERD (gastroesophageal reflux disease) 1 07/04/2019 Anxiety 05/04/2020 Vitamin D deficiency 04/19/2019 CKD (chronic kidney disease) stage 3, GF R 30-59 ml/min 08/24/2018 Procedure and treatment not carried out because of patient's decision for unspecified reasons 05/05/2018 Osteoarthritis 09/08/2016 Glaucoma 08/14/2016 Osteopenia 11/06/2015 Depression Hyperlipidemia Last Assessment & Plan: The patient has a history of hyperlipidemia. The patient is currently on atorvastatin 20 mg orally daily. We will order a new lipid panel to evaluate the patient's current lipid control and determine if any adjustment are needed in the lipid lowering therapy. Migraine Hypothyroidism RLS (restless legs syndrome) Resolved Problems Problem Noted Date Resolved Date Dyspnea 09/06/2023 03/14/2024 Last Assessment & Plan: The patient has been reporting episodes of chest pain and dyspnea on exertion. Will have her undergo an echocardiogram to evaluate her LV function and assess for any valvular abnormalities as a cause. I will also have her undergo a pharmacological nuclear stress test to rule ischemia as a cause of her symptoms. The patient is unable to coordinate the treadmill due to history of osteoarthritis. OA (osteoarthritis) 05/04/2020 06/26/2020 Hypothyroidism 05/04/2020 06/26/2020 Hyperlipidemia 05/04/2020 06/26/2020 Migraines 05/04/2020 06/26/2020 Restless legs syndrome (RLS) 05/04/2020 Depression 05/04/2020 06/26/2020 HTN (hypertension) 06/26/2020 Anemia 05/05/2018 Immunizations Name Administration Dates Next Due COVID-19 (Pfizer) 06/02/2022,,10/26/2020,2020 Influenza (> 6 Months) 01/22/2020,05/13/2016 Influenza (>6 Months) Split Preservative Free 03/04/2015 Influenza Flu (PT Reported) 01/22/2020, 9 Influenza Vaccine-preservati ve Free-quadrivalent 4 Years 07/20/2022,02/12/2021,05/05/2018 PREVNAR 20 07/20/2022 Shingrix (Recombinant zoster vaccine) 03/25/2021 Tdap 11/28/2019,08/14/2016 Zostavax 04/26/2017 Family History Medical History Relation Name Comments CA Breast Aunt 1 Dementia Aunt 2 Diabetes Brother CA Lung Father CA Lung Mother Systemic lupus Sister Relation Name Status Comments Aunt 1 Aunt 2 Brother Father Mother Sister Social History Tobacco Use Types Packs/Day Years [...] file Not on file Not on file Last Filed Vital Signs Vital Sign Reading Time Taken Comments Blood Pressure 150/80 03/14/2024 12:59 PM EDT Pulse 74 03/14/2024 12:59 PM EDT Temperature 36.2 ??C (97.2 ??F) 02/21/2024 10:03 AM E DT Respiratory Rate 15 02/21/2024 10:03 AM EDT Oxygen Saturation 94% 03/14/2024 12:59 PM EDT Inhaled Oxygen Concentration - - Weight 81.6 kg (180 lb) 03/14/2024 12:59 PM EDT Height 162.6 cm (5' 4 ) 03/14/2024 12:59 PM EDT Body Mass Index 30.9 03/14/2024 12:59 PM EDT Plan of Treatment Health Maintenance Due Date Last Done Comments SHINGLES VACCINE (3 of 3) 05/20/2021 03/25/2021, COLON CANCER SCREEN WITH STO OL CARD 11/11/2021 11/11/2020 BONE DENSITY SCREENING 2022 11/05/2015 Covid-19 Vaccine (5 - 2022-2 4 season) 2024 06/02/2022, 04/30/2021, 10/26/2020, Additional history exists INFLUENZA (#1) 2024 07/20/2022, 01/2021, 02/12/2021, Additional history exists BMI CHECK/ADVISE 06/07/2024 02/21/2024, , 10/18/2023, Additional history exists DEPRESSION SCREEN 10/17/2024 10/18/2023 (Co mpleted), 07/20/2022, 12/12/2020, Additional history exists FALL RISK ASSESSMENT 10/17/2024 10/18/2023 (Completed), 07/20/2022, 07/20/2022, Additional history exists MAMMOGRAM 11/08/2024 11/09/2023, 10/05 (External Completion), 06/02/2022, Additional history exists CHOLESTEROL SCREENING 10/26/2028 10/27/2023 , 07/23/2021, 04/15/2021, Additional history exists DTAP/TDAP/TD (3 - Td or Tdap) 11/27/2029 11/28/2019, 08/14/2016 HEPATITIS C SCREENING Completed 08/14/2016 PNEUMOCOCCAL VACCINE Completed 07/20/2022 Advance Directives For more information, please contact: [phone] Documents on File Type Date Recorded Patient State Wildlife Officer [facility] 11/15/2020 9:18 AM Healt Care Proxy Care Teams Comic Book Writer Relationship Specialty Start Date End Date Carlos Castañeda PA-C [address] [place] [address] PCP - General Internal Medicine 10/30/20 Haja Donahue MD [address] [place] [phone] Internal Medicine 04/04/20 Brent Ellis MD [address] [place] [address] Monogram And Letter Paster Cardiovascular Disease 07/16/20 Mark Acuña MD [address] [place] [address] Specialist Cardiology 07/31/21 Nanette Wyatt PA-C [address] [place] [address] Specialist Cardiology 07/31/21 Sunita Sanchez NP [address] [place] [address] Nurse Practitioner Cardiology 10/20/23
--- OUTSIDE RECORDS SUMMARY | 2024-07-20 03:29 | XMS_ITS | Encounter Summary ---
Author Organization [facility] Address [address] [place] [address] Care Team Providers Care Arc And Gas Welder Name Role Phone Haja Donahue MD Unavailable [phone] Brent Ellis MD Unavailable [phone] Carlos Castañeda PA-C Primary Care Provider [phone] Nicky Miller Unavailable Unavailable Mark Acuña MD Unavailable [phone] Nanette Wyatt PA-C Unavailable Sunita Sanchez NP Unavailable [phone] Encounter Details Date Type Department Care Team Description 05/12/2022 Telephone Adult Medicine [facility] [address] [place] [address] [id number] Carlos Castañeda PA-C [address] [place] [address] [id number] Social History Tobacco Use Types Packs/Day Years [...] on filedocumented in this encounter Care Teams Arc And Gas Welder Relationship Specialty Start Date End Date Carlos Castañeda PA-C [address] [place] [address] PCP - General Internal Medicine 10/30/20 Haja Donahue MD [address] [place] [address] Internal Medicine 04/04/20 Brent Ellis MD [address] [place] [address] Chief Dietitian Cardiovascular Disease 07/16/20 Nicky Miller PA [address] [place] [address] Specialist Cardiology 02/06/21 11/11/23 Mark Acuña MD [address] [place] [address] Specialist Cardiology 07/31/21 Nanette Wyatt PA-C [address] [address] Specialist Cardiology 07/31/21 Sunita Sanchez NP [address] [place] [address] Nurse Practitioner Cardiology 10/20/23 documented as of this encounter
--- OUTSIDE RECORDS SUMMARY | 2024-07-20 03:29 | XMS_ITS | Encounter Summary ---
Author Organization [facility] Address [address] [place] [address] Care Team Providers Care Graphite Pan Drier Tender Name Role Phone Haja Donahue MD Unavailable [phone] Brent Ellis MD Unavailable [phone] Carlos Castañeda PA-C Primary Care Provider [phone] Nicky Miller Unavailable Unavailable Mark Acuña MD Unavailable [phone] Nanette Wyatt PA-C Unavailable Sunita Sanchez NP Unavailable [phone] Encounter Details Date Type Department Care Team Description 02/17/2021 PNO Controlled Substance Contract Medical Records [address] [place] [address] Abstract, Provider Social History Tobacco Use Types Packs/Day Years Used Date Smoking Tobacco: Never Smokeless Tobacco: Never Alcohol Use Standard Drinks/Week Comments No 0 (1 standard drink = 0.6 oz pur e alcohol) quit 13 yrs ago Alcohol Habits Answer Date Recorded [...] have Coronavirus / COVID-19? No / Unsure 02/12/2021 8:51 AM EDT documented as of this encounter Plan of Treatment Not on file documented as of this encounter Visit Diagnoses Not on filedocumented in this encounter Care Teams Graphite Pan Drier Tender Relationship Specialty Start Date End Date Carlos Castañeda PA-C [address] [place] [address] PCP - General Internal Medicine 10/30/20 Haja Donahue MD [address] [place] [address] Internal Medicine 04/04/20 Brent Ellis MD [address] [place] [address] Wic Site Coordinator Cardiovascular Disease 07/16/20 Nicky Miller PA [address] [place] [address] Specialist Cardiology 02/06/21 11/11/23 Mark Acuña MD [address] [place] [address] Specialist Cardiology 07/31/21 Nanette Wyatt PA-C [address] [place] [address] Specialist Cardiology 07/31/21 Sunita Sanchez NP [address] [place] [address] Nurse Practitioner Cardiology 10/20/23 documented as of this encounter
--- OUTSIDE RECORDS SUMMARY | 2024-07-20 03:29 | XMS_ITS | Encounter Summary ---
Author Organization [facility] Address [address] [place] [address] Care Team Providers Care Internal Combustion Engine Subassembler Name Role Phone Minh Ferrell MD Primary Care Provider Un available Haja Donahue MD Primary Care Provider [phone] Haja Donahue MD Primary Care Provider [phone] Haja Donahue MD Unavailable [phone] Brent Ellis MD Unavailable [phone] Carlos Castañeda PA-C Primary Care Provider [phone] Nicky Miller Unavailable Unavailable Mark Acuña MD Unavailable [phone] Nanette Wyatt PA-C Unavailable Sunita Sanchez NP Unavailable [phone] Reason for Visit * Reason Onset Date Comments refill request 01/16/2019 Encounter Details Date Type Department Care Team Description 01/16/2019 Refill Adult Medicine [address] [address] Minh Ferrell MD refill request Social History [...] encounter Miscellaneous Notes * Telephone Encounter - Elver Mustafa PA-C - 01/17/2019 1:57 PM EDT Ok to fill. Khalida Phelps * Telephone Encounter - Marisa Erickson M.A. - 01/17/2019 1:26 PM EDT Lab Results Component Value Date NA 143 05/05/2018 K 5.0 05/05/2018 CO2 21.1 05/05/2018 CL 109 05/05/2018 BUN 21 05/05/2018 CREAT 1.3 05/05/2018 CA 9.2 05/05/2018 GFR 44 05/05/2018 * Telephone Encounter - Katiana Dial - 01/16/2019 1:39 PM EDT Patient would like script to be: E-PRESCRIBED/FAXED TO PHARMACY WHEN WAS THE PATIENT'S LAST APPOINTMENT IN ADULT MEDICINE? 08/24/18 WHEN WAS THE LAST TIME THE PATIENT SAW THEIR PCP? Same as above Does patient have an upcoming appointment? Yes 01/24/19 (THE MEDICATION REQUESTED IS ON THE MED [...] / Plan: [place] / Product Type: MEDICARE [id number] documented in this encounter Plan of Treatment Not on file documented as of this encounter Visit Diagnoses Not on filedocumented in this encounter Care Teams Internal Combustion Engine Subassembler Relationship Specialty Start Date End Date Minh Ferrell MD PCP - General Internal Medicine 08/30/15 01/29/19 Haja Donahue MD [address] [place] [address] PCP - General Internal Medicine 01/30/19 04/03/20 Haja Donahue MD [address] [place] [address] PCP - General 04/04/20 10/29/20 Carlos Castañeda PA-C [address] [place] [address] PCP - General Internal Medicine 10/30/20 Haja Donahue MD [address] [place] [address] Internal Medicine 04/04/20 Brent Ellis MD [address] [place] [address] [place] [address] Hoop Coiler Cardiovascular Disease 07/16/20 Nicky Miller PA [address] [place] [address] Specialist Cardiology 02/06/21 11/11/23 Mark Acuña MD [address] [place] [address] Specialist Cardiology 07/31/21 Nanette Wyatt PA-C [address] [place] [address] Specialist Cardiology 07/31/21 Sunita Sanchez NP [address] [place] [address] Nurse Practitioner Cardiology 10/20/23 documented as of this encounter
--- OUTSIDE RECORDS SUMMARY | 2024-07-20 03:29 | XMS_ITS | Encounter Summary ---
Author Organization [facility] Address [address] [place] [address] Care Team Providers Care Resident Doctor Name Role Phone Haja Donahue MD Unavailable [phone] Brent Ellis MD Unavailable [phone] Carlos Castañeda PA-C Primary Care Provider [phone] Nicky Miller Unavailable Unavailable Mark Acuña MD Unavailable [phone] Nanette Wyatt PA-C Unavailable Sunita Sanchez NP Unavailable [phone] Encounter Details Date Type Department Care Team Description 11/19/2022 [facility] Medical Records [address] [place] [id number] Social History Tobacco Use Types Packs/Day Years [...] Date/Time Associated Diagnosis Comments OUTSIDE EKG Routine 11/19/2022 documented in this encounter Results * OUTSIDE EKG (11/19/2022) Provider Abstract CARDIOLOGY documented in this encounter Visit Diagnoses Not on filedocumented in this encounter Care Teams Resident Doctor Relationship Specialty Start Date End Date Carlos Castañeda PA-C [address] [place] [address] PCP - General Internal Medicine 10/30/20 Haja Donahue MD [address] [place] [address] Internal Medicine 04/04/20 Brent Ellis MD [address] [place] [address] Lift Team Technician Cardiovascular Disease 07/16/20 Nicky Miller PA [address] [place] [address] Specialist Cardiology 02/06/21 11/11/23 Mark Acuña MD [address] [place] [address] Specialist Cardiology 07/31/21 Nanette Wyatt PA-C [address] [place] [address] Specialist Cardiology 07/31/21 Sunita Sanchez NP [address] [place] [address] Nurse Practitioner Cardiology 10/20/23 documented as of this encounter
--- OUTSIDE RECORDS SUMMARY | 2024-07-20 03:29 | XMS_ITS | Encounter Summary ---
Author Organization [facility] Address [address] [place] [address] Care Team Providers Care Risk Developer Name Role Phone Haja Donahue MD Primary Care Provider + [phone] Haja Donahue MD Unavailable [phone] Brent Ellis MD Unavailable [phone] Carlos Castañeda PA-C Primary Care Provider +[phone] Nicky Miller Unavailable Unavailable Mark Acuña MD Unavailable +[phone] Nanette Wyatt PA-C Unavailable Sunita Sanchez NP Unavailable +[phone] Reason for Visit * Reason Onset Date Comments Fall 09/09/2020 Pt fell over wee kend Encounter Details Date Type Department Care Team Description 09/09/2020 Telephone Cardio PVC [facility] [address] [place] [address] Drive [address] [place] [address] Brent Ellis MD [address] [place] [address] Dr Tay [address] [place], [place] [id number] Fall (Pt fell over weekend) Social History Tobacco Use Types Packs/Day Years [...] encounter Miscellaneous Notes * Telephone Encounter - Brent Ellis MD - 09/11/2020 1:08 PM EDT I spoke with Elise. The test has not been scheduled yet but she is going to call the patient today toset up the study to be done AMARIS. * Telephone Encounter - Brent Ellis MD - 09/11/2020 1:01 PM EDT Lets continue with plans for a tilt table. Do you know if she has a date for the study? * Telephone Encounter - Dominic Francois NP - 09/11/2020 11:33 AM EDT Do you want tilt table first or for me to set her up for ILR? * Telephone Encounter - Ofelia Randall R.N. - 09/09/2020 4:37 PM EDT I spoke with pt and strongly encouraged her to speak with her PCP regarding the head trauma and need for a CT scan. I advised if she could not get this arranged by her PCP she should go to the ER forevaluation. Secondly I let her know that [facility] would be in touch with [facility] regarding possible ILR. Shestates [facility]OP did discuss this with her but wanted the tilt table to be done first. She has not been sc heduled for this yet. Can you please look into this and reach out to pt with the apt? Thanks. * Telephone Encounter - Dominic Francois NP - 09/09/2020 4:26 PM EDT She needs to call PCP to set up head CT because she hit her head. I will touch base with [facility] and she may need ILR and is scheduled for tilt. * Telephone Encounter - Ofelia Randall R.N. - 09/09/2020 4:15 PM EDT Pt called the office this afternoon, states she had another fall on Wednesday, hitting her head and sustaining a black eye. She states I didn't lose consciousness but states she had no symptoms before the fall. She states one second she was walking, the next she was on the floor. She did not seek medical attention. This is her 5th? episode and she saw [facility] last week. She states she checked her VS after the fall and HR 78, BP 110/55. * Telephone Encounter - Usha Lopez - 09/09/2020 4:03 PM EDT 09/09/20: [facility] pt stated that she fell on Sat. Pt stated that after she fell her BP was 110/55. Pt canbe reached at [phone] documented in this encounter Plan of Treatment Not on file documented as of this encounter Visit Diagnoses Not on filedocumented in this encounter Care Teams Risk Developer Relationship Specialty Start Date End Date Haja Donahue MD [address] [place] [address] PCP - General 04/04/20 10/29/20 Carlos Castañeda PA-C [address] [place] [address] PCP - General Internal Medicine 10/30/20 Haja Donahue MD [address] [place] [address] Internal Medicine 04/04/20 Brent Ellis MD [address] [place] [address] Sports Management Professor Cardiovascular Disease 07/16/20 Nicky Miller PA [address] [place] [address] Specialist Cardiology 02/06/21 11/11/23 Mark Acuña MD [address] [place] [address] Specialist Cardiology 07/31/21 Nanette Wyatt PA-C [address] [address] Specialist Cardiology 07/31/21 Sunita Sanchez NP [address] [place] [address] Nurse Practitioner Cardiology 10/20/23 documented as of this encounter
--- OUTSIDE RECORDS SUMMARY | 2024-07-20 03:30 | XMS_ITS | Encounter Summary ---
Author Organization [facility] Address [address] [place] [address] Care Team Providers Care Campus Director Name Role Phone Haja Donahue MD Primary Care Provider + [phone] Haja Donahue MD Primary Care Provider + [phone] Haja Donahue MD Unavailable [phone] Brent Ellis MD Unavailable [phone] Carlos Castañeda PA-C Primary Care Provider +[phone] Nicky Miller Unavailable Unavailable Mark Acuña MD Unavailable +[phone] Nanette Wyatt PA-C Unavailable Sunita Sanchez NP Unavailable +[phone] Reason for Visit * Reason Onset Date Comments Follow-up Appt Unavailable 01/01/2020 Encounter Details Date Type Department Care Team Description 01/01/2020 Telephone Adult Medicine [facility] [address] [place] [address] Haja Donahue MD [address] [place] [address] [phone] Follow-up Appt Unavailable Social History Tobacco Use Types Packs/Day Years [...] encounter Miscellaneous Notes * Telephone Encounter - Michelle Cervantes - 01/01/2020 9:30 AM EDT Follow up appointment not available. Please call patient to book-no open NON PUBLIC SLOTS. Appointment needed csc 3 month f/u with pcp around 02-15 documented in this encounter Plan of Treatment Not on file documented as of this encounter Visit Diagnoses Not on filedocumented in this encounter Care Teams Campus Director Relationship Specialty Start Date End Date Haja Donahue MD [address] [place] [address] PCP - General Internal Medicine 01/30/19 04/03/20 Haja Donahue MD [address] [place] [address] PCP - General 04/04/20 10/29/20 Carlos Castañeda PA-C [address] [place] [address] PCP - General Internal Medicine 10/30/20 Haja Donahue MD [address] [place] [address] Internal Medicine 04/04/20 Brent Ellis MD [address] [place] [address] [place] [address] Ross Carrier Driver Cardiovascular Disease 07/16/20 Nicky Miller PA [address] [place] [address] Specialist Cardiology 02/06/21 11/11/23 Mark Acuña MD [address] [place] [address] Specialist Cardiology 07/31/21 Nanette Wyatt PA-C [address] [place] [address] Specialist Cardiology 07/31/21 Sunita Sanchez NP [address] [place] [address] Nurse Practitioner Cardiology 10/20/23 documented as of this encounter
--- OUTSIDE RECORDS SUMMARY | 2024-07-20 03:30 | XMS_ITS | Encounter Summary ---
Author Organization [facility] Address [address] [place] [address] Care Team Providers Care President Celebrity Acquistion Name Role Phone Minh Ferrell MD Primary Care Provider Un available Haja Donahue MD Primary Care Provider + [phone] Haja Donahue MD Primary Care Provider + [phone] Haja Donahue MD Unavailable Brent Ellis MD Unavailable +[phone] Carlos Castañeda PA-C Primary Care Provider [phone] Nicky Miller Unavailable Unavailable Mark Acuña MD Unavailable [phone] Nanette Wyatt PA-C Unavailable Sunita Sanchez NP Unavailable [phone] Encounter Details Date Type Department Care Team Description 08/02/2017 Pt. Non Urgent Medical Question Adult Medicine [address] [id number] Elver Mustafa PA-C [address] [place] [address] [phone] Social History Tobacco Use Types Packs/Day Years [...] as of this encounter Progress Notes * Lisseth Tsang M.A. - 08/02/2017 9:33 AM ESTFrom: Laurne Lemos To: Elver Mustafa PA-C Sent: 08/02/2017 9:05 AM EST Subject: Meds You uped my Levothyroxine to 100 mg And changed one other to Atorcastatin 20 mg and one of them is causing me to be very dissy after I take it and I was never like that after the last dose at 88 whatshould I do I have been taking them for two months now what should I d Thank you Lauren lemos documented in this encounter Plan of Treatment Not on file documented as of this encounter Visit Diagnoses Not on filedocumented in this encounter Care Teams President Celebrity Acquistion Relationship Specialty Start Date End Date Minh Ferrell MD PCP - General Internal Medicine 08/30/15 01/29/19 Haja Donahue MD [address] [place] [address] PCP - General Internal Medicine 01/30/19 04/03/20 Haja Donahue MD [address] [place] [address] PCP - General 04/04/20 10/29/20 Carlos Castañeda PA-C [address] [place] [address] PCP - General Internal Medicine 10/30/20 Haja Donahue MD [address] [place] [address] Internal Medicine 04/04/20 Brent Ellis MD [address] [place] [address] Carding Machine Operator Cardiovascular Disease 07/16/20 Nicky Miller PA [address] [place] [address] Specialist Cardiology 02/06/21 11/11/23 Mark Acuña MD [address] [place] [address] Specialist Cardiology 07/31/21 Nanette Wyatt PA-C [address] [place] [address] Specialist Cardiology 07/31/21 Sunita Sanchez NP [address] [place] [address] Nurse Practitioner Cardiology 10/20/23 documented as of this encounter
--- OUTSIDE RECORDS SUMMARY | 2024-07-20 03:30 | XMS_ITS | Encounter Summary ---
Author Organization [facility] Address [address] [place] [address] Care Team Providers Care Climate Change Risk Assessor Name Role Phone Minh Ferrell MD Primary Care Provider Un available Haja Donahue MD Primary Care Provider + [phone] Haja Donahue MD Primary Care Provider + [phone] Haja Donahue MD Unavailable [phone] Brent Ellis MD Unavailable [phone] Carlos Castañeda PA-C Primary Care Provider [phone] Nicky Miller Unavailable Unavailable Mark Acuña MD Unavailable [phone] Nanette Wyatt PA-C Unavailable Sunita Sanchez NP Unavailable [phone] Encounter Details Date Type Department Care Team Description 11/08/2017 PNO Controlled Substance Contract Medical Records [address] [place] [address] Abstract, Provider Social History Tobacco Use Types [...] on filedocumented in this encounter Care Teams Climate Change Risk Assessor Relationship Specialty Start Date End Date Minh Ferrell MD PCP - General Internal Medicine 08/30/15 01/29/19 Haja Donahue MD [address] [place] [address] PCP - General Internal Medicine 01/30/19 04/03/20 Haja Donahue MD [address] [place] [address] PCP - General 04/04/20 10/29/20 Carlos Castañeda PA-C [address] [place] [address] PCP - General Internal Medicine 10/30/20 Haja Donahue MD [address] [place] [address] Internal Medicine 04/04/20 Brent Ellis MD [address] [place] [address] Optimization Manager Cardiovascular Disease 07/16/20 Nicky Miller PA [address] [place] [address] Specialist Cardiology 02/06/21 11/11/23 Mark Acuña MD [address] [address] Specialist Cardiology 07/31/21 Nanette Wyatt PA-C [address] [address] Specialist Cardiology 07/31/21 Sunita Sanchez NP [address] [place] [address] Nurse Practitioner Cardiology 10/20/23 documented as of this encounter
--- OUTSIDE RECORDS SUMMARY | 2024-07-20 03:30 | XMS_ITS | Encounter Summary ---
Author Organization [facility] Address [address] [place] [address] Care Team Providers Care Export Freight Clerk Name Role Phone Haja Donahue MD Unavailable [phone] Brent Ellis MD Unavailable [phone] Carlos Castañeda PA-C Primary Care Provider +[phone] Nicky Miller Unavailable Unavailable Mark Acuña MD Unavailable [phone] Nanette Wyatt PA-C Unavailable Sunita Sanchez NP Unavailable [phone] Reason for Visit * Reason Onset Date Comments other 09/06/2023 Encounter Details Date Type Department Care Team Description 09/06/2023 Telephone Cardio PVC [facility] [address] [facility] [address] [place] [id number] Sunita Sanchez NP [address] [address] [place] [address] other Social History Tobacco Use Types Packs/Day [...] encounter Miscellaneous Notes * Telephone Encounter - Carlos A Gallegos - 09/06/2023 4:23 PM EDT I left patient a voicemail stating to give the office a call to help book testing orders per Sunita Sanchez . documented in this encounter Plan of Treatment Not on file documented as of this encounter Visit Diagnoses Not on filedocumented in this encounter Care Teams Export Freight Clerk Relationship Specialty Start Date End Date Carlos Castañeda PA-C [address] [place] [address] PCP - General Internal Medicine 10/30/20 Haja Donahue MD [address] [place] [address] Internal Medicine 04/04/20 Brent Ellis MD [address] [place] [address] Design Director Cardiovascular Disease 07/16/20 Nicky Miller PA [address] [place] [address] Specialist Cardiology 02/06/21 11/11/23 Mark Acuña MD [address] [address] Specialist Cardiology 07/31/21 Nanette Wyatt PA-C [address] [address] Specialist Cardiology 07/31/21 Sunita Sanchez NP [address] [place] [address] Nurse Practitioner Cardiology 10/20/23 documented as of this encounter
--- OUTSIDE RECORDS SUMMARY | 2024-07-20 03:30 | XMS_ITS | Encounter Summary ---
Author Organization [facility] Address [address] [place] [address] Care Team Providers Care Factory Hand Name Role Phone Haja Donahue MD Unavailable Brent Ellis MD Unavailable [phone] Carlos Castañeda PA-C Primary Care Provider [phone] Nicky Miller Unavailable Unavailable Mark Acuña MD Unavailable [phone] Nanette Wyatt PA-C Unavailable Sunita Sanchez NP Unavailable [phone] Encounter Details Date Type Department Care Team Description 10/29/2021 [facility] Medical Records [address] [place] [address] Social History Tobacco Use Types Packs/Day Years [...] suspected to have Coronavirus/COVID-19? No / Unsure 10/03/2021 9:13 AM EDT documented as of this encounter Plan of Treatment Not on file documented as of this encounter Procedures Procedure Name Priority Date/Time Associated Diagnosis Comments OUTSIDE ECHO Routine 10/31/2021 OUTSIDE NUCLEAR MEDICINE Routine 10/31/2021 OUTSIDE LAB Routine 10/31/2021 documented in this encounter Results * OUTSIDE NUCLEAR MEDICINE (10/31/2021) Provider Abstract RADIOLOGY * OUTSIDE LAB (10/31/2021) Provider Abstract LAB * OUTSIDE ECHO (10/31/2021) Provider Abstract CARDIOLOGY documented in this encounter Visit Diagnoses Not on filedocumented in this encounter Care Teams Factory Hand Relationship Specialty Start Date End Date Carlos Castañeda PA-C [address] [place] [address] PCP - General Internal Medicine 10/30/20 Haja Donahue MD [address] [place] [address] Internal Medicine 04/04/20 Brent Ellis MD [address] [place] [address] Review Consultant Cardiovascular Disease 07/16/20 Nicky Miller PA [address] [place] [address] Specialist Cardiology 02/06/21 11/11/23 Mark Acuña MD [address] [address] Specialist Cardiology 07/31/21 Nanette Wyatt PA-C [address] [address] Specialist Cardiology 07/31/21 Sunita Sanchez NP [address] [place] [address] Nurse Practitioner Cardiology 10/20/23 documented as of this encounter
--- OUTSIDE RECORDS SUMMARY | 2024-07-20 03:30 | XMS_ITS | Encounter Summary ---
Author Organization [facility] Address [address] [place] [address] Care Team Providers Care Machine Operator Replanter Name Role Phone Minh Ferrell MD Primary Care Provider Un available Haja Donahue MD Primary Care Provider + [phone] Haja Donahue MD Primary Care Provider + [phone] Haja Donahue MD Unavailable [phone] Brent Ellis MD Unavailable [phone] Carlos Castañeda PA-C Primary Care Provider [phone] Nicky Miller Unavailable Unavailable Mark Acuña MD Unavailable Nanette Wyatt PA-C Unavailable Sunita Sanchez NP Unavailable [phone] Encounter Details Date Type Department Care Team Description 11/06/2015 [facility] Medical Records [address] [place] [address] Abstract, Provider Social History Tobacco Use Types [...] filedocumented in this encounter Care Teams Machine Operator Replanter Relationship Specialty Start Date End Date Minh Ferrell MD PCP - General Internal Medicine 08/30/15 01/29/19 Haja Donahue MD [address] [place] [address] PCP - General Internal Medicine 01/30/19 04/03/20 Haja Donahue MD [address] [place] [address] PCP - General 04/04/20 10/29/20 Carlos Castañeda PA-C [address] [place] [address] PCP - General Internal Medicine 10/30/20 Haja Donahue MD [address] [place] [address] Internal Medicine 04/04/20 Brent Ellis MD [address] [place] [address] Dental Internship Cardiovascular Disease 07/16/20 Nicky Miller PA [address] [place] [address] Specialist Cardiology 02/06/21 11/11/23 Mark Acuña MD [address] [address] Specialist Cardiology 07/31/21 Nanette Wyatt PA-C [address] [address] Specialist Cardiology 07/31/21 Sunita Sancehz NP [address] [place] [address] Nurse Practitioner Cardiology 10/20/23 documented as of this encounter
--- OUTSIDE RECORDS SUMMARY | 2024-07-20 03:30 | XMS_ITS | Encounter Summary ---
Author Organization [facility] Address [address] [place] [address] Care Team Providers Care Acid Loader Name Role Phone Minh Ferrell MD Primary Care Provider Un available Haja Donahue MD Primary Care Provider + [phone] Haja Donahue MD Primary Care Provider + [phone] Haja Donahue MD Unavailable [phone] Brent Ellis MD Unavailable [phone] Carlos Castañeda PA-C Primary Care Provider [phone] Nicky Miller Unavailable Unavailable Mark Acuña MD Unavailable Nanette Wyatt PA-C Unavailable Sunita Sanchez NP Unavailable [phone] Encounter Details Date Type Department Care Team Description 11/03/2017 Orders Only Adult Medicine [address] [phone] Elver Mustafa PA-C [address] [place] [address] [phone] Screening breast examination Social History Tobacco Use Types Packs/Day Years [...] Procedure Name Priority Date/Time Associated Diagnosis Comments SCR MAMMO BI INCL CAD Routine 10/21/2017 Screening breast examination documented in this encounter Results * SCR MAMMO BI INCL CAD (10/21/2017) Elver Mustafa PA-C MAMMOGRAPHY documented in this encounter Visit Diagnoses Diagnosis Screening breast examination Other screening breast examination documented in this encounter Care Teams Acid Loader Relationship Specialty Start Date End Date Minh Ferrell MD PCP - General Internal Medicine 08/30/15 01/29/19 Haja Donahue MD [address] [place] [address] PCP - General Internal Medicine 01/30/19 04/03/20 Haja Donahue MD [address] [place] [address] PCP - General 04/04/20 10/29/20 Carlos Castañeda PA-C [address] [place] [address] PCP - General Internal Medicine 10/30/20 Haja Donahue MD [address] [place] [address] Internal Medicine 04/04/20 Brent Ellis MD [address] [place] [address] [place] [address] Esl Teacher Cardiovascular Disease 07/16/20 Nicky Miller PA [address] [place] [address] Specialist Cardiology 02/06/21 11/11/23 Mark Acuña MD [address] [place] [address] Specialist Cardiology 07/31/21 Nanette Wyatt PA-C [address] [place] [address] Specialist Cardiology 07/31/21 Sunita Sanchez NP [address] [place] [address] Nurse Practitioner Cardiology 10/20/23 documented as of this encounter
--- OUTSIDE RECORDS SUMMARY | 2024-07-20 03:30 | XMS_ITS | Encounter Summary ---
Author Organization [facility] Address [address] [place] [address] Care Team Providers Care Daycare Assistant Name Role Phone Haja Donahue MD Unavailable [phone] Brent Ellis MD Unavailable [phone] Carlos Castañeda PA-C Primary Care Provider [phone] Nicky Milelr Unavailable Unavailable Mark Acuña MD Unavailable [phone] Nanette Wyatt PA-C Unavailable Sunita Sanchez NP Unavailable Encounter Details Date Type Department Care Team Description 05/02/2023 [facility] Medical Records [address] [place] [address] Janette Little PA-C Social History Tobacco Use Types Packs/Day [...] suspected to have Coronavirus/COVID-19? No / Unsure 04/02/2023 9:56 AM EDT documented as of this encounter Plan of Treatment Not on file documented as of this encounter Visit Diagnoses Not on filedocumented in this encounter Care Teams Daycare Assistant Relationship Specialty Start Date End Date Carlos Castañeda PA-C [address] [place] [address] PCP - General Internal Medicine 10/30/20 Haja Donahue MD [address] [place] [address] Internal Medicine 04/04/20 Brent Ellis MD [address] [place] [address] Open Hearth Melter Cardiovascular Disease 07/16/20 Nicky Miller PA [address] [place] [address] Specialist Cardiology 02/06/21 11/11/23 Mark Acuña MD [address] [place] [address] Specialist Cardiology 07/31/21 Nanette Wyatt PA-C [address] [place] [address] Specialist Cardiology 07/31/21 Sunita Sanchez NP [address] [place] [address] Nurse Practitioner Cardiology 10/20/23 documented as of this encounter
--- OUTSIDE RECORDS SUMMARY | 2024-07-20 03:30 | XMS_ITS | Encounter Summary ---
Author Organization [facility] Address [address] [place] [address] Care Team Providers Care Senior Health Consultant Name Role Phone Haja Donahue MD Primary Care Provider + [phone] Haja Donahue MD Primary Care Provider + [phone] Haja Donahue MD Unavailable [phone] Brent Ellis MD Unavailable [phone] Carlos Castañeda PA-C Primary Care Provider +[phone] Nicky Miller Unavailable Unavailable Mark Acuña MD Unavailable [phone] Nanette Wyatt PA-C Unavailable Sunita Sanchez NP Unavailable [phone] Encounter Details Date Type Department Care Team Description 02/28/2020 Hospital Medical Records [address] [place] [address] [facility] Social History Tobacco Use Types Packs/Day Years [...] or suspected to have Coronavirus / COVID-19? Unable to assess 02/15/2020 8:44 AM EDT documented as of this encounter Plan of Treatment Not on file documented as of this encounter Visit Diagnoses Not on filedocumented in this encounter Care Teams Senior Health Consultant Relationship Specialty Start Date End Date Haja Donahue MD [address] [place] [address] PCP - General Internal Medicine 01/30/19 04/03/20 Haja Donahue MD [address] [place] [address] PCP - General 04/04/20 10/29/20 Carlos Castañeda PA-C [address] [place] [address] PCP - General Internal Medicine 10/30/20 Haja Donahue MD [address] [place] [address] Internal Medicine 04/04/20 Brent Ellis MD [address] [place] [address] Nurses Assistant Cardiovascular Disease 07/16/20 Nicky Miller PA [address] [place] [address] Specialist Cardiology 02/06/21 11/11/23 Mark Acuña MD [address] [address] Specialist Cardiology 07/31/21 Nanette Wyatt PA-C [address] [address] Specialist Cardiology 07/31/21 Sunita Sanchez NP [address] [place] [address] Nurse Practitioner Cardiology 10/20/23 documented as of this encounter
--- OUTSIDE RECORDS SUMMARY | 2024-07-20 03:30 | XMS_ITS | Clinical Summary ---
Author Organization [facility] Address [address] [place] [address] Phone Care Team Providers Care Hand Inspector Name Role Phone Haja Donahue MD Primary Care Provider Unavaila ble Allergies Active Allergy Reactions Criticality Noted Date Comments Gluten Meal 02/01/2018 Gluten allergy Mushroom Extract Complex (Do Not Select) 09/26/2015 Throat closes Medications acetaminophen-c odeine (TYLENOL with CODEINE #3) 300-30 MG per tablet Take 1 tablet by mouth 2 (two) times a day Active aspirin (ST JUS) 81 MG EC tablet Take 1 tablet by mouth 1 (one) time each day Active cyclobenzaprine (FLEXERIL) 10 MG tablet Take 1 tablet by mouth 2 (two) times a day Active metoprolol succinate XL (TOPROL-XL) 100 MG 24 hr tablet Take 1 tablet by mouth 1 (one) time each day Active rOPINIRole (REQUIP) 0.25 MG tablet Take 1 tablet by mouth 1 (one) time each day Active simvastatin (ZOCOR) 20 MG tablet Take 1 tablet by mouth every night Active levothyroxine (SYNTHROID, LEVOTHROID) 75 MCG tablet TAKE 1 TABLET BY MOUTH DAILY 06/05/2020 Active Cyanocobalamin (Vitamin B-12) 2500 MCG sublingual tablet Comments: Filled Date: Feb 27 2015 10:20AM Patient Notes: 1 TABLET BY MOUTH ONCE A DAY Duration: 11/04/2014 Active Multiple Vitamin (multivitamin) capsule Take 1 capsule by mouth 1 (one) time each day Active ascorbic acid (VITAMIN C) 250 MG tablet Take 1 tablet by mouth Active atorvastatin (LIPITOR) 20 MG tablet Take 1 tablet by mouth 1 (one) time each day 11/11/2020 Active cholecalciferol (VITAMIN D-3) 10 MCG (400 UNIT) tablet Take by mouth 1 (one) time each day Active omeprazole (PriLOSEC) [address] capsule Take 1 capsule by mouth 1 (one) time each day 11/11/2020 Active amLODIPine (NORVASC) 5 MG tablet Take 1 tablet (5 mg total) by mouth 1 (one) time each day in the evening 30 tablet 3 04/16/2022 Active spironolactone (ALDACTONE) 25 MG tablet TAKE 1 TABLET(25 MG) BY MOUTH 1 TIME EACH DAY 30 tablet 3 02/10/2023 Active Active Problems Problem Noted Date Diagnosed Date Cardiac murmur 11/20/2020 Migraine 11/20/2020 Restless legs 11/20/2020 Anemia of chronic disease 07/15/2020 Essential hypertension 07/15/2020 Depressive disorder 07/15/2020 Hyperlipidemia 07/15/2020 Hypothyroidism 07/15/2020 Syncope 05/07/2020 Overview (11/20/2020): Last Assessment & Plan: The patient has continued episodes of apparent syncope. She has had 2 episodes of loss of consciousness since her last visit in our office. 30-day ambulatory echocardiographic monitor did not show any arrhythmias. Nevertheless, our conversation today revealed that the patient did not have any symptoms while wearing the monitor. Echocardiogram did not show any significant structural heart disease. The patient is scheduled to see a neurologist soon in order to evaluate for any possible seizures as the cause of her episodes of loss of consciousness. Nevertheless, given that she describes her her 2 recent episodes occur in the home paraprofessional right after getting out of bed, we have to consider the possibility of orthostatic hypotension. I would instruct the patient to monitor her blood pressure at home in the home paraprofessional to determine if she is having any episodes of hypotension. If so, we will decrease her antihypertensive medications. Also, given the description of her 2 recent episodes, we will schedule the patient for a tilt table study. If the tilt table study is normal, we will need then need to consider placement of an implantable loop recorder. Anxiety 05/04/2020 Cobalamin deficiency 05/04/2020 Gastroesophageal reflux disease 05/04/2020 Hypertension 05/04/2020 Chronic back pain 05/04/2020 Chest pain 05/04/2020 Shoulder pain 05/04/2020 Overactive bladder 05/04/2020 Vitamin D deficiency 04/19/2019 Chronic kidney disease stage 3 08/24/2018 Colonoscopy declined 05/05/2018 Osteoarthritis 09/08/2016 Glaucoma 08/14/2016 Osteopenia 11/06/2015 Resolved Problems Problem Noted Date Diagnosed Date Resolved Date Chronic kidney disease stage 3 07/15/2020 11/21/2020 Family History Medical History Relation Comments Diabetes Father Heart disease Father Cancer Mother Hypertension Mother Stroke Mother Gout Sibling 1 Diabetes Sibling 2 Relation Status Comments Father Mother Sibling 1 Sibling 2 Social History Tobacco Use Types Packs/Day Years Used Date Smoking Tobacco: Never Smokeless Tobacco: Never Tobacco Cessation:Counseling Given: Not Answered Alcohol Use Standard Drinks/Week Comments Never 0 (1 standard drink = 0.6 oz pur e alcohol) Comments Unknown Sex and Gender Information Value Date Recorded Sex Assigned at Not on file Legal Sex Female 4:59 PM EST Gender Identity Not on file Sexual Orientation Not on file Last Filed Vital Signs Vital Sign Reading Time Taken Comments Blood Pressure 130/50 04/16/2022 2:30 PM EST Pulse 86 04/16/2022 2:30 PM EST Temperature - - Respiratory Rate - - Oxygen Saturation 96% 04/16/2022 2:30 PM EST Inhaled Oxygen Concentration - - Weight 84.1 kg (185 lb 6.4 oz) 04/16/2022 2:30 P M EST Height 162.6 cm (5' 4 ) 03/27/2021 1:34 PM EDT Body Mass Index 31.82 03/27/2021 1:34 PM EDT Plan of Treatment Health Maintenance Due Date Last Done Comments Breast Cancer Screening 1955 Pneumococcal Vaccine: 65+ Years (1 of 2 - PCV) 1961 Colorectal Cancer Screening: Annual FOBT 2006 Colorectal Cancer Screening: Colonoscopy 2006 Colorectal Cancer Screening: Sigmoidoscopy 2006 Influenza Vaccine (#1) 2024 , 02/12/2021, 05/05/2018 Hepatitis B Vaccine Aged Out No longe r eligible based on patient's age to complete this topic Insurance [address] [place] [id number] [place] Member Subscriber Plan / Payer (Ef fective 2020-Present) Name:Lauren Lemos Relation to Subscriber:Self Name:Lauren Lemos Payer ID:Not on file Group ID:Not on file Type:Not on file Address: [address] [facility] Member Subscriber Plan / Payer (Ef fective 2022-Present) Name:Lauren Lemos Relation to Subscriber:Self Name:Lauren Lemos Payer ID:[id number] (NAIC) Group ID:Not on file Type:Not on file Address: [place] [id number] [place] [address] [place] [facility] Care Teams Hand Inspector Relationship Specialty Start Date End Date Haja Donahue MD PCP - General Internal Medicine 07/15/20
--- OUTSIDE RECORDS SUMMARY | 2024-07-20 03:30 | XMS_ITS | Encounter Summary ---
Author Organization [facility] Address [address] [place] [address] Care Team Providers Care Off Track Betting Manager Name Role Phone Haja Donahue MD Unavailable [phone] Brent Ellis MD Unavailable [phone] Carlos Castañeda PA-C Primary Care Provider [phone] Nicky Miller Unavailable Unavailable Mark Acuña MD Unavailable [phone] Nanette Wyatt PA-C Unavailable Sunita Sanchez NP Unavailable [phone] Encounter Details Date Type Department Care Team Description 08/22/2021 Development Consultant Report Medical Records [address] [id number] Abstract, Provider Social History Tobacco Use Types [...] have Coronavirus / COVID-19? No / Unsure 08/06/2021 12:20 PM EST documented as of this encounter Plan of Treatment Not on file documented as of this encounter Visit Diagnoses Not on filedocumented in this encounter Care Teams Off Track Betting Manager Relationship Specialty Start Date End Date Carlos Castañeda PA-C [address] [place] [address] PCP - General Internal Medicine 10/30/20 Haja Donahue MD [address] [place] [address] Internal Medicine 04/04/20 Brent Ellis MD [address] [place] [address] Emergency Medcl Emt Cardiovascular Disease 07/16/20 Nicky Miller PA [address] [place] [address] Specialist Cardiology 02/06/21 11/11/23 Mark Acuña MD [address] [place] [address] Specialist Cardiology 07/31/21 Nanette Wyatt PA-C [address] [address] Specialist Cardiology 07/31/21 Sunita Sanchez NP [address] [place] [address] Nurse Practitioner Cardiology 10/20/23 documented as of this encounter
--- OUTSIDE RECORDS SUMMARY | 2024-07-20 03:30 | XMS_ITS | Encounter Summary ---
Author Organization [facility] Address [address] [place] [address] Care Team Providers Care Floor Layer Apprentice Name Role Phone Haja Donahue MD Unavailable [phone] Brent Ellis MD Unavailable [phone] Carlos Castañeda PA-C Primary Care Provider Nicky Miller Unavailable Unavailable Mark Acuña MD Unavailable [phone] Nanette Wyatt PA-C Unavailable Sunita Sanchez NP Unavailable [phone] Encounter Details Date Type Department Care Team Description 07/14/2023 Orders Only Medical Records [address] [place] [address] Carlos Castañeda PA-C [address] [place], [place] [phone] Social History Tobacco Use Types Packs/Day Years [...] Date/Time Associated Diagnosis Comments OUTSIDE MAMMO Routine 06/02/2022 documented in this encounter Results * OUTSIDE MAMMO (06/02/2022) Carlos Castañeda PA-C RADIOLOGY documented in this encounter Visit Diagnoses Not on filedocumented in this encounter Care Teams Floor Layer Apprentice Relationship Specialty Start Date End Date Carlos Castañeda PA-C [address] [place] [address] PCP - General Internal Medicine 10/30/20 Haja Donahue MD [address] [place] [address] Internal Medicine 04/04/20 Brent Ellis MD [address] [place] [address] Veterinary Technician Cardiovascular Disease 07/16/20 Nicky Miller PA [address] [place] [address] Specialist Cardiology 02/06/21 11/11/23 Mark Acuña MD [address] [facility] [address] [place] [address] Specialist Cardiology 07/31/21 Nanette Wyatt PA-C [address] [facility] [address] [place] [address] Specialist Cardiology 07/31/21 Sunita Sanchez NP [address] [place] [address] Nurse Practitioner Cardiology 10/20/23 documented as of this encounter
--- OUTSIDE RECORDS SUMMARY | 2024-07-20 03:30 | XMS_ITS | Clinical Summary ---
Author Organization [facility] [address] [place] [address] [place] [phone] Phone Care Team Providers Care Water Safety Instructor Name Role Phone Carlos Castañeda Primary Care Provider [phone] Allergies Active Allergy Reactions Criticality Noted Date Comments Gluten 02/01/2018 Gluten allergy Mushroom 09/26/2015 Throat closes Medications cyanocobalamin (VITAMIN B-12) 1,000 mcg tablet Take 1,000 mcg by mouth daily. Active multivitamin tablet Take by mouth daily. Active blood sugar diagnostic (FreeStyle Lite Strips) test strip Use to check blood sugar once daily 4 Active FREESTYLE LANCETS MISC Use to check blood sugar once daily 4 Active cholecalciferol (VITAMIN D-3) 10 mcg (400 unit) tablet Take by mouth daily. Active calcium carbonate-vitam in D3 600 mg-5 mcg (200 unit) capsule Take by mouth daily. Active blood-glucose meter kit Use to check blood sugar once daily 4 Active ascorbic acid (VITAMIN C) 250 mg tablet Take 1 Tab by mouth daily. Active dextromethorpha n-guaifenesin 20-200 mg/10 mL liquid in packet Take 20 mg by mouth every 6 hours as needed for Other (cough). - Oral Active acetaminophen-c odeine (TYLENOL #3) 300-30 mg per tablet Take 1 tablet by mouth every 4 (four) hours if needed for moderate pain or severe pain. 4 Active amLODIPine (NORVASC) 10 mg tablet Take 1 tablet (10 mg total) by mouth 1 (one) time each day. 90 tablet 1 5 Active aspirin 81 mg EC tablet Take 1 tablet (81 mg total) by mouth 1 (one) time each day. 90 tablet 5 Active atorvastatin (LIPITOR) 20 mg tablet Take 1 tablet (20 mg total) by mouth 1 (one) time each day. 90 tablet 5 Active cyclobenzaprine (FLEXERIL) 10 mg tablet Take 1 tablet (10 mg total) by mouth 2 (two) times a day if needed for muscle spasms. 30 tablet 5 5 Active levothyroxine (SYNTHROID, LEVOTHROID) 75 mcg tablet Take 1 tablet (75 mcg total) by mouth 1 (one) time each day. 90 tablet 5 Active lidocaine (LIDODERM) 5 % patch Apply topically 1 (one) time each day. Apply for no more than 12 hours in any 24 hour period 28 patch 5 Active meclizine (ANTIVERT) 25 mg tablet Take 1 Tablet by mouth 3 times daily as needed (vertigo). 30 tablet 5 5 Active omeprazole (PriLOSEC) [address] capsule Take 1 capsule (20 mg total) by mouth 1 (one) time each day. Do not crush or chew. 90 capsule 5 Active ondansetron (ZOFRAN) 4 mg tablet Take 1 tablet (4 mg total) by mouth every 8 (eight) hours if needed for nausea. 21 tablet 2 5 Active spironolactone (Aldactone) 50 mg tablet Take 1 tablet (50 mg total) by mouth 1 (one) time each day. 90 each 5 Active tolterodine LA (DETROL LA) 4 mg 24 hr capsule Take 1 capsule (4 mg total) by mouth 1 (one) time each day. Do not crush, chew, or split. 90 capsule 5 Active zonisamide (ZONEGRAN) 100 mg capsule Take 1 Capsule by mouth 2 times daily as needed (nausea). 180 capsule 5 Active rOPINIRole (REQUIP) 0.25 mg tabletIndicatio ns:restless leg syndrome Take 1 tablet (0.25 mg total) by mouth 2 (two) times a day. 180 tablet 1 5 Active metoprolol succinate (TOPROL-XL) 100 mg 24 hr tablet Take 1 tablet (100 mg total) by mouth 1 (one) time each day. Do not crush or chew. 90 tablet 1 5 Active albuterol HFA (ProAir HFA) 90 mcg/actuation inhaler Inhale 1 puff by mouth every 6 (six) hours if needed for wheezing or shortness of breath. 8.5 g 5 Active zonisamide (ZONEGRAN) 100 mg capsule Take 1 Capsule by mouth 2 times daily as needed (nausea). 06/29/19 Discontinu ed(Reorder ) rOPINIRole (REQUIP) 0.25 mg tablet Take 1 Tablet by mouth 2 times daily. 06/29/19 Discontinu ed(Reorder ) ondansetron (ZOFRAN) 4 mg tablet Take 1 Tablet by mouth every 8 hours as needed for Nausea. 06/29/19 Discontinu ed(Reorder ) omeprazole (PriLOSEC) [address] capsule Take 1 Capsule by mouth daily. 06/29/19 Discontinu ed(Reorder ) metoprolol succinate (TOPROL-XL) 100 mg 24 hr tablet Take 1 Tablet by mouth daily. 06/29/19 Discontinu ed(Reorder ) meclizine (ANTIVERT) 25 mg tablet Take 1 Tablet by mouth 3 times daily as needed (vertigo). 06/29/19 Discontinu ed(Reorder ) lidocaine (LIDODERM) 5 % patch Place 1 Patch onto the skin every 24 hours for 14 days. Apply for no more than 12 hours in any 24 hour period. 06/29/19 Discontinu ed(Reorder ) levothyroxine (SYNTHROID, LEVOTHROID) 75 mcg tablet Take 1 Tablet by mouth daily. 06/29/19 Discontinu ed(Reorder ) cyclobenzaprine (FLEXERIL) 10 mg tablet TAKE 1 TABLET BY MOUTH TWICE A DAY NEEDED FOR MUSCLE SPASMS 06/29/19 Discontinu ed(Reorder ) atorvastatin (LIPITOR) 20 mg tablet Take 1 Tablet by mouth daily. 4 06/29/19 Discontinu ed(Reorder ) aspirin 81 mg EC tablet Take 81 mg by mouth daily. 06/29/19 Discontinu ed(Reorder ) albuterol HFA (PROVENTIL HFA;VENTOLIN HFA) 108 (90 Base) MCG/ACT inhaler 06/29/19 Discontinu ed(Duplica te order) amLODIPine (NORVASC) 10 mg tablet Take 1 tablet (10 mg total) by mouth 1 (one) time each day. 4 06/29/19 Discontinu ed(Reorder ) spironolactone (Aldactone) 50 mg tablet Take 1 tablet (50 mg total) by mouth 1 (one) time each day. 90 each 3 4 06/29/19 Discontinu ed(Reorder ) tolterodine LA (DETROL LA) 4 mg 24 hr capsule Take 1 capsule (4 mg total) by mouth 1 (one) time each day. Do not crush, chew, or split. 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 She is on atorvastatin. She is given a lab slip to update a lipid panel. Hypothyroidism 03/09/2024 Migraine 03/09/2024 RLS (restless legs syndrome) 03/09/2024 Dyspnea 09/06/2023 Overview (03/09/2024): Last Assessment & Plan: The patient has [...] the treadmill due to history of osteoarthritis. Chest pain 06/15/2022 Overview (03/09/2024): Last Assessment & Plan: The patient has had multiple hospitalizations and ER visits related to chest discomfort sensation. Given her symptoms and risk factors for CAD, we will need to consider the possibility of underlying coronary artery disease as a cause of her symptoms. Therefore, the patient has an intermediate pretest probability for the presence of obstructive coronary artery disease (2020 ACC chest pain guidelines). The patient had a nuclear stress test in the past that did not show any evidence of ischemia or infarct. As such, given her continued symptoms symptoms, we will proceed with a cardiac CT scan in order to evaluate for any obstructive coronary artery disease as a cause of her symptoms (the use of a cardiac CT scan for evaluation of possible coronary artery disease is recommended by 202 ACC chest pain guidelines as a level 1 A recommendation). She will also continue her plans to complete a scheduled echocardiogram. Syncope 06/15/2022 Overview (03/09/2024): Last Assessment & Plan: Patient with history of recurrent episodes of syncope. She has a PhoneF[employer] ILR that was placed in July [address] Acuña. She had a remote device check in December 2021 which was normal. Bilateral leg edema 02/06/2021 Overview (03/09/2024): Last Assessment & Plan: Mild bilateral lower [...] consider transitioning her to a different antihypertensive. LOC (loss of consciousness) 05/07/2020 Overview (03/09/2024): Last Assessment & Plan: The patient has experienced 3 episodes of loss of consciousness. So far, her cardiac evaluation has been unremarkable as no arrhythmias were noted during a 30-day ambulatory echocardiographic monitor, the echocardiogram did not show any significant structural heart disease, on the tilt table study was negative. The patient has also been under evaluation by the neurology service for possible seizures as a cause of her symptoms. I will attempt to obtain copies of her neurology evaluation. If they think that the patient's symptoms are due to seizures, then no further cardiac work-up will be needed. Nevertheless, if the neurology team thinks that the patient's symptoms are not due to 20 neurologic etiology, then we may need to consider the possibility of an implantable loop recorder. Anxiety 05/04/2020 Chronic back pain 05/04/2020 GERD (gastroesophageal reflux disease) 0 Hypertension 05/04/2020 Overview (03/09/2024): Last Assessment & Plan: Patient's blood pressure is well-controlled today with a reading 120/64. She will continue her current hypertensive medication regimen Overactive bladder 05/04/2020 Shoulder pain, left 05/04/2020 Vitamin B 12 deficiency 05/04/2020 Vitamin D deficiency 04/19/2019 CKD (chronic kidney disease) stage 3, GFR 30-59 ml/min 08/24/2018 Osteoarthritis 09/08/2016 Glaucoma 08/14/2016 Osteopenia 11/06/2015 Encounters Date Type Department Care Team Description 07/18/2024 9:24 AM EST - 07/18/2024 11:59 PM EST Hospital Encounter Radiology Department - [address] [phone] Elevated LFTs Discharge Disposition: Home or Self Care 07/11/2024 1:10 PM EST Ancillary Procedure [facility] [address] [place] [phone] 06/29/2024 1:15 PM EST Office Visit Adult Medicine [address] [phone] Rochelle Parks PA Primary hypertension (Primary Dx); Pure hypercholesterolemia; Other specified hypothyroidism; RLS (restless legs syndrome); Migraine with aura and without status migrainosus, not intractable; Vertigo; Vitamin B 12 deficiency; Vitamin D deficiency; Stage 3b chronic kidney disease (CMS/HCC); Gastroesophageal reflux disease without esophagitis; Overactive bladder; Osteopenia of left hip; Family history of diabetes mellitus 06/20/2024 Telephone Adult Medicine [address] [phone] Zee Booth [place] faxed order (Iain BALTAZARA D/C summary tracking #[id number]) 06/14/2024 Telephone Adult [address] [phone] Carlos Castañeda PA VNA ([facility]NA) 06/13/2024 8:30 PM EST Ancillary Procedure [facility] [address] [facility] [address] [place] [phone] 06/09/2024 Telephone Adult [address] [phone] Zee Booth [place] faxed order (Iain BALTAZARA Eval report tracking #[id number]) 06/06/2024 Telephone General Surgery [facility] [address] [facility] [address] [place] [phone] Christin Pagan MA 05/24/2024 Telephone Adult Medicine [address] [phone] Carlos Castañeda PA 05/24/2024 Telephone [facility] [address] [facility] 154 [place] [phone] Mark Acuña MD Device Remote Disconnection 05/19/2024 2:00 PM EST Office Visit Adult [address] [phone] Carlos Castañeda PA Right calf pain (Primary Dx); Lipoma of left thigh; Chronic pain of right knee; Stage 3 chronic kidney disease, unspecified whether stage 3a or 3b CKD (CMS/HCC); Leukocytosis, unspecified type; Primary hypertension 05/15/2024 Telephone Adult Medicine [address] [phone] Carlos Castañeda PA VNA ([facility]) 05/11/2024 Billing Patient Not Present [address] [phone] Carlos Castañeda PA Unilateral primary osteoarthritis, right knee (Primary Dx); Osteopenia, unspecified location; Glaucoma, unspecified glaucoma type, unspecified laterality; Vitamin D deficiency; Stage 3 chronic kidney disease, unspecified whether stage 3a or 3b CKD (CMS/HCC); Overactive bladder; RLS (restless legs syndrome); Hyperlipidemia, unspecified hyperlipidemia type; Anxiety; Depression, unspecified depression type; 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 IV, or unspecified(403.00); Attention deficit hyperactivity disorder (ADHD), unspecified ADHD type; Deficiency of other specified B group vitamins; 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; [facility] (current) use of inhaled steroids; Presence of intraocular lens; Personal history of healed traumatic fracture; History of fall 05/11/2024 Telephone Adult Medicine [address] [phone] Oskar Pineda LPN [facility] Follow-up; Nurse Visit 04/26/2024 10:00 AM EST Consult [facility] [address] [phone] Carlos Castañeda PA Preop cardiovascular exam (Primary Dx); Age-related cataract of both eyes, unspecified age-related cataract type; Primary hypertension; Stage 3 chronic kidney disease, unspecified whether stage 3a or 3b CKD (CMS/HCC); Hyperlipidemia, unspecified hyperlipidemia type; Hypothyroidism, unspecified type from Last 3 Months Immunizations Name Administration Dates Next Due Influenza Quadravalent, 0.5m l (Fluad) 65yo and older 03/16/2023 Influenza Quadravalent, MDCK , 0.5ml, preservative free (Flucelvax) 6mo and older 07/20/2022,02/12/2021,05/05/2018 Influenza trivalent, 0.5mL ( Fluzone High-dose) 65yo and older 03/11/2024 Influenza trivalent, 0.5mL, preservative free (Fluarix; FluLaval; Fluzone) ages 6mo and older (Afluria) 3 years and older 03/04/2015 Influenza trivalent, with preservative (Fluzone; Afluria) 6mo and older 01/22/2020,02/13/2017,05/13/2016 Influenza, Unspecified 01/22/2020,02/12/2019 ReadyForZero SARS-CoV-2 COVID-19, mRNA, LNP-S, preservative free 06/02/2022,04/30/2021,10/26/2020,2020 Pneumococcal conjugate 20 va lent (Prevnar 20, PCV 20) 2mo and older 06/15/2024,07/20/2022 RSV, bivalent, protein subun it RSVpreF, 0.5mL, Preservative Free (ABRYSVO) 60yo and older or 32 through 36 wks of 04/25/2024 Td Tetanus diptheria, preser vative free (Tenivac) 7yo and older 09/27/2008 Tdap Tetanus diptheria acell ular pertussis (Boostrix; Adacel) 7yo and older 11/28/2019,08/14/2016 Zoster Live 04/26/2017 Zoster recombinant (Shingrix ) 19yo and older 04/25/2024,03/25/2021 Surgical History Surgery Date Site/Laterality Comments SHOULDER SURGERY 2013 Right PROCEDURE: HISTORICAL SHOULDER SURGERY LEG SURGERY 2014 Right PROCEDURE: HISTORICAL LEG SURGERY; COMMENT: femur fracture SECTION PROCEDURE: HISTORICAL DELIVERY KNEE SURGERY 11/2017 Right PROCEDURE: HISTORICAL KNEE SURGERY; COMMENT: arthroscopy APPENDECTOMY PROCEDURE: HISTORICAL APPENDECTOMY SECTION PROCEDURE: HISTORICAL ROTATOR CUFF REPAIR Right PROCEDURE: HISTORICAL ROTATOR CUFF REPAIR FEMUR FRACTURE SURGERY 2004 Right PROCEDURE: MA OPEN TX FEMORAL FRACTURE DISTAL MED/LAT CONDYLE Medical History Medical History Date Comments Depression DX:Depression Heart murmur DX:Heart murmur; COMMENT: h/o Rheumatic fever during childhood Hyperlipidemia DX:Hyperlipidemi a HTN (hypertension) DX:HTN (hyper tension) Migraine DX:Migraine Hypothyroidism DX:Hypothyroidis m RLS (restless legs syndrome) DX: RLS (restless legs syndrome) Anemia DX:Anemia Osteopenia 11/06/2015 DX:Osteopenia Glaucoma 08/14/2016 DX:Glaucoma Osteoarthritis 09/08/2016 DX:Osteoarthriti s Colonoscopy refused 05/05/2018 DX:Colonosco py refused CKD (chronic kidney disease) stage 3, GFR 30-59 ml/min (CMS/HCC) 08/24/2018 DX:CKD (chronic kidney dise ase) stage 3, GFR 30-59 ml/min (HCC) Dyspnea 09/06/2023 DX:Dyspnea Family History Medical History Relation Name Comments Breast cancer Aunt 1 Dementia Aunt 2 Diabetes Brother Lung cancer Father Lung cancer Mother Other: Systemic lupus Sister Relation Name Status Comments [...] on file Sexual Orientation Not on file Obstetrics History Last Filed Vital Signs Vital Sign Reading [...] Mass Index 32.65 06/29/2024 10:12 AM EST Plan of Treatment Upcoming Encounters Date Type Department Care Team (Late st Contact Info) Description 08/01/2024 10:30 AM EST Consult General Surgery - [place] [address] [facility] [address] [place] [phone] Ravindra Sarmiento DO [address] [place] [address] Health Maintenance Due Date Last Done Comments Breast Cancer Screening 1955 Colorectal Cancer Screening: Stool Based Tests (FOBT/FIT) 05/16/2022 Osteoporosis Screening (Bone Density Screening) 05/16/2022 Social Influencers of Health Screening 05/16/2022 Depression Screening 10/17/2024 10/18/2023 Falls Risk Assessment 10/17/2024 10/18/2023 Medicare Annual Wellness Visit 10/17/2024 10/18/2023 Hypertension/CHF/CAD Annual BMP Blood Test 06/29/2025 06/29/2024, 10/20/2022 Cholesterol Screening (Lipid Panel) 06/29/2029 06/29/2024, 10/27/2023, 10/27/2023 DTaP,Tdap,and Td Vaccines (4 - Td or Tdap) 11/27/2029 11/28/2019, 08/14/2016, 09/27/2008 COVID-19 Vaccine Completed 03/11/2024, 03/2023, 06/02/2022, Additional history exists Influenza Vaccine Completed 03/11/2024, , 07/20/2022, Additional history exists RSV Immunization Patients 60+ Years Old Completed 04/25/2024 Zoster Vaccines Completed 04/25/2024, 03/07, 04/26/2017 Pneumococcal Vaccine: 50+ Years Completed 06/15/2024, 07/20/2022 Hepatitis C Screening Completed 07/18/2024, 017 HIB Vaccines Aged Out No longer eligi ble based on patient's age to complete this topic HPV Vaccines Aged Out No longer eligi ble based on patient's age to complete this topic Hepatitis A Vaccines Aged Out No long er eligible based on patient's age to complete this topic Hepatitis B Vaccines Aged Out No long er eligible based on patient's age to complete this topic IPV Vaccines Aged Out No longer eligi ble based on patient's age to complete this topic MMR Vaccines Aged Out No longer eligi ble based on patient's age to complete this topic Meningococcal ACWY Vaccine Aged Out N o longer eligible based on patient's age to complete this topic Meningococcal B Vacine Aged Out No lo nger eligible based on patient's age to complete this topic RSV Immunization Patients Under 20 months Aged Out No longer eligible based on patient's age to complete this topic Varicella Vaccines Aged Out No longer eligible based on patient's age to complete this topic Medical Devices Implanted Type Area Airset Molder Device Identifier Shelf Expiration Date Model / Serial / Lot Bsci-Crm [id number] Implanted:07/08 (Quantity not on file) Cardiac Loop Recorder [employer] CARD RHYTHM MGMT [id number] / [id number] / Procedures Procedure Name Priority Date/Time Associated Diagnosis Comments HEPATIC FUNCTION PANEL Routine 07/18/2024 10:20 AM EST Elevated LFTs HEPATITIS PANEL, ACUTE WITH REFLEX TO CONFIRMATION Routine 07/18/2024 10:20 AM EST Elevated LFTs US ABDOMEN LIMITED Routine 07/18/2024 9: 57 AM EST Elevated LFTs CARDIAC DEVICE CHECK- REMOTE- MURJ Routine 07/11/2024 1:06 PM EST CBC WITH AUTO DIFFERENTIAL Routine 06/29/2024 11:28 AM EST Lipoma of left thigh Chronic pain of right knee Stage 3 chronic kidney disease, unspecified whether stage 3a or 3b CKD (CMS/HCC) Leukocytosis, unspecified type Right calf pain Primary hypertension CBC AND DIFFERENTIAL Routine 06/29/2024 11:28 AM EST Lipoma of left thigh Chronic pain of right knee Stage 3 chronic kidney disease, unspecified whether stage 3a or 3b CKD (CMS/HCC) Leukocytosis, unspecified type Right calf pain Primary hypertension THYROID STIMULATING HORMONE WITH REFLEX TO FREE T4 AND FREE T3 Routine 06/29/2024 11:28 AM EST Other specified hypothyroidism COMPREHENSIVE METABOLIC PANEL Routine 06/29/2024 11:28 AM EST Primary hypertension LIPID PANEL WITH REFLEX TO DIRECT LDL Routine 06/29/2024 11:28 AM EST Pure hypercholesterolemia VITAMIN B12 Routine 06/29/2024 11:28 AM EST Vitamin B 12 deficiency VITAMIN D 25 HYDROXY Routine 06/29/2024 11:28 AM EST Vitamin D deficiency HEMOGLOBIN A1C Routine 06/29/2024 11:28 AM EST Family history of diabetes mellitus CARDIAC DEVICE CHECK- REMOTE- MURJ Routine 06/13/2024 8:27 PM EST EXTERNAL XRAY REPORT 05/10/2024 EXTERNAL ULTRASOUND REPORT 05/10/2024 DEPRESSION SCREENING Routine 10/18/2023 FALLS RISK ASSESSMENT Routine 10/18/2023 from Last 3 Months or Most Recently Relevant to Health Maintenance Results * Hepatitis panel, acute with reflex to confirmation (07/18/2024 10:20 AM EST) Hepatitis B Surface Ag Negative Negative LAB CHEMISTRY METHOD 07/18/2024 1:45 PM EST [facility] Hepatitis A Antibody IgM Negative Negative LAB CHEMISTRY METHOD 07/18/2024 1:45 PM EST [facility] Hep B Core IgM Negative Negative LAB CHEMISTRY METHOD 07/18/2024 1:45 PM EST [facility] Hepatitis C Antibody Negative Negative LAB CHEMISTRY METHOD 07/18/2024 1:45 PM EST [facility] Blood Venous blood specimen / Unknown Venipuncture / Unknown 07/18/2024 10:20 AM EST 07/18/2024 10:20 AM EST us Rochelle Charly [facility] LAB BLOOD ORDERABLES Final Resul t [facility] [address] [place] [address], [place] [phone] * (ABNORMAL) Hepatic function panel (07/18/2024 10:20 AM EST) Total Protein 6.8 6.0 - 8.0 g/dL LAB CHEMISTRY METHOD 07/18/2024 1:16 PM EST [facility] Albumin 3.7 3.2 - 5.0 g/dL LAB CHEMISTRY METHOD 07/18/2024 1:16 PM EST [facility] Total Bilirubin 0.5 0.0 - 1.4 mg/dL LAB CHEMISTRY METHOD 07/18/2024 1:[address] [facility] Bilirubin, Direct 0.1 0.0 - 0.3 mg/dL LAB CHEMISTRY METHOD 07/18/2024 1:16 PM EST [facility] Bilirubin, Indirect 0.4 0.0 - 1.1 mg/dL LAB CHEMISTRY METHOD 07/18/2024 1:[address] [facility] ALT (SGPT) 20 10 - 60 unit/L LAB CHEMISTRY METHOD 07/18/2024 1:[address] [facility] Comment:Results verified by repeat testing AST (SGOT) 18 10 - 42 unit/L LAB CHEMISTRY METHOD 07/18/2024 1:16 PM EST [facility] Alkaline Phosphatase 131(H) 42 - 121 unit/L LAB CHEMISTRY METHOD 07/18/2024 1:[address] [facility] Blood Venous blood specimen / Unknown Venipuncture / Unknown 07/18/2024 10:20 AM EST 07/18/2024 10:20 AM EST us Rochelle Charly [facility] BLOOD ORDERABLES Final Resul t [facility] [address] [place] [address], [place] [phone] * US Abdomen Limited (07/18/2024 9:57 AM EST) Anatomical Region Laterality Modality Body Ultrasound 07/18/2024 11:5 1 AM EST Impressions 07/18/2024 11:54 AM EST No abnormality detected in the visualized abdominal visceral structures. ??Pancreas obscured by bowel gas. POS [id number] -------- FINAL REPORT -------- Dictated By: Naomi Treviño Dictated Date: 07/18/2024 11:51 ET Assigned Physician: Naomi Treviño Reviewed and Electronically Signed By: Naomi Treviño Signed Date: 07/18/2024 11:54 ET Workstation ID: [id number] Transcribed By: Self Edit Transcribed Date: 07/18/2024 [...] visceral structures.Pancreas obscured by bowel gas. POS [id number] -------- FINAL REPORT -------- Dictated By: Naomi Treviño Dictated Date: 07/18/2024 11:51 ET Assigned Physician: Naomi Treviño Reviewed and Electronically Signed By: Naomi Treviño Signed Date: 07/18/2024 11:54 ET Workstation ID: [id number] Transcribed By: Self Edit Transcribed Date: 07/18/2024 11:51 ET us Rcohelle Charly [facility] IMG US PROCEDURES Final Result * Cardiac device check - Remote- MURJ (07/11/2024 1:06 PM EST) Only the most recent of2 resultswithin the time period is included. Date Time Interrogation Session [id number] CV DEVICE CHECK Type Interrogation Session Remote Scheduled CV DEVICE CHECK Implantable Pulse Generator Airset Molder BSX CV DEVICE CHECK Implantable Pulse Generator Type ILR CV DEVICE CHECK Implantable Pulse Generator Model M301 CV DEVICE CHECK Implantable Pulse Generator Serial Number [id number] CV DEVICE CHECK Implantable Pulse Generator Implant Date [id number] CV DEVICE CHECK Battery Status Beginning of Service CV DEVICE CHECK Atrial Tachy Statistic AT/AF Jackson Percent 0.00 CV DEVICE CHECK Date of [...] SR 60's * Heart Rate Histograms reviewed us Mark Acuña MD CV IMPLANTABLE CARDIAC DEV ICE PROCEDURES Final Result * Thyroid stimulating hormone with reflex to free t4 and free t3 (06/29/2024 11:28 AM EST) Pathologist [facility] TSH 2.24 0.40 - 4.00 mcIU/mL LAB CHEMISTRY METHOD 06/29/2024 3:[address] [facility] Blood Venous blood specimen / Unknown Venipuncture / Unknown 06/29/2024 11:28 AM EST 06/29/2024 11:28 AM EST us [facility] BLOOD ORDERABLES Final Resul t [facility] [address] [place] [address], [place] [phone] * (ABNORMAL) Lipid panel with reflex to direct LDL (06/29/2024 11:28 AM EST) Pathologist [facility] Cholesterol 270(H) 0 - 200 mg/dL LAB CHEMISTRY METHOD 06/29/2024 2:[address] [facility] Triglycerides 135 0 - 150 mg/dL LAB CHEMISTRY METHOD 06/29/2024 2:[address] [facility] HDL 57 >=40 mg/dL LAB CHEMISTRY METHOD 06/29/2024 2:[address] [facility] LDL Calculated 186(H) 0 - 100 mg/dL LAB CHEMISTRY METHOD 06/29/2024 2:[address] [facility] VLDL Cholesterol Robert 27 mg/dL LAB CHEMISTRY METHOD 06/29/2024 2:[address] [facility] Non HDL Chol. (LDL+VLDL) 213(H) <145 mg/dL LAB CHEMISTRY METHOD 06/29/2024 2:[address] [facility] Chol/HDL Ratio 4.7(H) 0.0 - 4.4 LAB CHEMISTRY METHOD 06/29/2024 2:[address] [facility] Blood Venous blood specimen / Unknown Venipuncture / Unknown 06/29/2024 11:28 AM EST 06/29/2024 11:28 AM EST us Roc[facility] BLOOD ORDERABLES Final Resul t [facility] [address] [place] [address], * (ABNORMAL) CBC auto differential (06/29/2024 11:28 AM EST) WBC 8.5 4.8 - 10.8 K/mcL LAB HEMETOLOGY METHOD 06/29/2024 2:[address] [facility] RBC 4.90(H) 3.80 - 4.80 M/mcL LAB HEMETOLOGY METHOD 06/29/2024 2:[address] [facility] Hemoglobin 14.8 11.5 - 16.0 g/dL LAB HEMETOLOGY METHOD 06/29/2024 2:[address] [facility] Hematocrit 47.3(H) 35.0 - 47.0 % LAB HEMETOLOGY METHOD 06/29/2024 2:[address] [facility] MCV 97.1 79.0 - 98.0 FL LAB HEMETOLOGY METHOD 06/29/2024 2:[address] [facility] MCH 30.4 27.0 - 32.0 pcg LAB HEMETOLOGY METHOD 06/29/2024 2:[address] [facility] MCHC 31.3(L) 32.0 - 37.0 g/dL LAB HEMETOLOGY METHOD 06/29/2024 2:[address] [facility] RDW 13.4 11.0 - 15.0 % LAB HEMETOLOGY METHOD 06/29/2024 2:[address] [facility] Platelets 266 130 - 400 K/mcL LAB HEMETOLOGY METHOD 06/29/2024 2:[address] [facility] MPV 11.2(H) 7.0 - 11.0 FL LAB HEMETOLOGY METHOD 06/29/2024 2:[address] [facility] NRBC 0.0 <1.0 % LAB HEMETOLOGY METHOD 06/29/2024 2:[address] [facility] NRBC Absolute 0.00 <0.10 K/mcL LAB HEMETOLOGY METHOD 06/29/2024 2:[address] [facility] Neutrophils Relative 63.1 % LAB HEMETOLOGY METHOD 06/29/2024 2:[address] [facility] Lymphocytes Relative 24.4 % LAB HEMETOLOGY METHOD 06/29/2024 2:[address] [facility] Monocytes Relative 7.5 % LAB HEMETOLOGY METHOD 06/29/2024 2:[address] [facility] Eosinophils Relative 3.0 % LAB HEMETOLOGY METHOD 06/29/2024 2:[address] [facility] Basophils Relative 1.3 % LAB HEMETOLOGY METHOD 06/29/2024 2:[address] [facility] Immature Granulocytes Relative 0.7 % LAB HEMETOLOGY METHOD 06/29/2024 2:[address] [facility] Neutrophils Absolute 5.38 1.50 - 7.00 K/mcL LAB HEMETOLOGY METHOD 06/29/2024 2:[address] [facility] Lymphocytes Absolute 2.08 1.00 - 5.00 K/mcL LAB HEMETOLOGY METHOD 06/29/2024 2:[address] [facility] Monocytes Absolute 0.64 0.20 - 1.00 K/mcL LAB HEMETOLOGY METHOD 06/29/2024 2:[address] [facility] Eosinophils Absolute 0.26 0.00 - 0.50 K/mcL LAB HEMETOLOGY METHOD 06/29/2024 2:08 PM EST [facility] Basophils Absolute 0.11 0.00 - 0.20 K/[facility] LAB HEMETOLOGY METHOD 06/29/2024 2:08 PM EST [facility] Immature Granulocytes Absolute 0.06(H) 0.00 - 0.03 K/[facility] LAB HEMETOLOGY METHOD 06/29/2024 2:08 PM EST [facility] Blood Venous blood specimen / Unknown Venipuncture / Unknown 06/29/2024 11:28 AM EST 06/29/2024 11:28 AM EST Carlos [facility] BLOOD ORDERABLES Carolyn l Result Performing Organization Address City/[facility]/ZIP Co de Phone Number [facility] [address] [place] [address], * Vitamin D 25 hydroxy (06/29/2024 11:28 AM EST) Vit D, 25-Hydroxy 30.6 30.0 - 80.0 ng/mL LAB CHEMISTRY METHOD 06/29/2024 3:01 PM EST [facility] Blood Venous blood specimen / Unknown Venipuncture / Unknown 06/29/2024 11:28 AM EST 06/29/2024 11:28 AM EST [facility] BLOOD ORDERABLES Final Resul t [facility] [address] [place] [address], * Hemoglobin A1c (06/29/2024 11:28 AM EST) Hemoglobin A1C 5.2 <6.5 % LAB CHEMISTRY METHOD 06/29/2024 9:07 PM EST [facility] Mean Bld Glu Estim. 103 mg/dL LAB CHEMISTRY METHOD 06/29/2024 9:07 PM EST [facility] Blood Venous blood specimen / Unknown Venipuncture / Unknown 06/29/2024 11:28 AM EST 06/29/2024 11:28 AM EST [facility] BLOOD ORDERABLES Final Resul t Performing Organization Address [facility]/ZIP Co de Phone Number [facility] [address] [place] [address], [place] [phone] * Vitamin B12 (06/29/2024 11:28 AM EST) Pathologist [facility] Vitamin B-12 363 250 - 900 pcg/mL LAB CHEMISTRY METHOD 06/29/2024 2:[address] [facility] Blood Venous blood specimen / Unknown Venipuncture / Unknown 06/29/2024 11:28 AM EST 06/29/2024 11:28 AM EST us Rochel[facility] BLOOD ORDERABLES Final Resul t Performing Organization Address [facility]/ZIP Co de Phone Number [facility] [address] [place] [address], [place] [phone] * (ABNORMAL) Comprehensive metabolic panel (06/29/2024 11:28 AM EST) [facility] Sodium 138 133 - 145 mmol/L LAB CHEMISTRY METHOD 06/29/2024 2:[address] [facility] Potassium 4.6 3.5 - 5.5 mmol/L LAB CHEMISTRY METHOD 06/29/2024 2:[address] [facility] Chloride 109 96 - 110 mmol/L LAB CHEMISTRY METHOD 06/29/2024 2:[address] [facility] CO2 25 21 - 32 mmol/L LAB CHEMISTRY METHOD 06/29/2024 2:[address] [facility] Anion Gap 4 3 - 11 LAB CHEMISTRY METHOD 06/29/2024 2:[address] [facility] Glucose 80 70 - 100 mg/dL LAB CHEMISTRY METHOD 06/29/2024 2:[address] [facility] BUN 22 5 - 25 mg/dL LAB CHEMISTRY METHOD 06/29/2024 2:[address] [facility] Creatinine 1.07 0.50 - 1.10 mg/dL LAB CHEMISTRY METHOD 06/29/2024 2:[address] [facility] eGFR 57(L) >=60 mL/min/1. 73m2 LAB CHEMISTRY METHOD 06/29/2024 2:[address] [facility] Comment:Calculation based on the??Chronic Kidney Disease Epidemiology Collaboration (CKD-EPI) equation refit??without adjustment for race. BUN/Creatinine Ratio 20.6 LAB CHEMISTRY METHOD 06/29/2024 2:[address] [facility] Calcium 8.9 8.5 - 10.5 mg/dL LAB CHEMISTRY METHOD 06/29/2024 2:[address] [facility] AST (SGOT) 40 10 - 42 unit/L LAB CHEMISTRY METHOD 06/29/2024 2:[address] [facility] ALT (SGPT) 104(H) 10 - 60 unit/L LAB CHEMISTRY METHOD 06/29/2024 2:[address] [facility] Alkaline Phosphatase 155(H) 42 - 121 unit/L LAB CHEMISTRY METHOD 06/29/2024 2:[address] [facility] Total Protein 6.9 6.0 - 8.0 g/dL LAB CHEMISTRY METHOD 06/29/2024 2:[address] [facility] Albumin 3.6 3.2 - 5.0 g/dL LAB CHEMISTRY METHOD 06/29/2024 2:[address] [facility] Total Bilirubin 0.5 0.0 - 1.4 mg/dL LAB CHEMISTRY METHOD 06/29/2024 2:[address] [facility] Blood Venous blood specimen / Unknown Venipuncture / Unknown 06/29/2024 11:28 AM EST 06/29/2024 11:28 AM EST us Roc[facility] BLOOD ORDERABLES Final Resul t [facility] ([facility] [address] [place] [address], [place] [phone] * External Xray Report (05/10/2024) Anatomical Region Laterality Modality Radiographic Patricia ging us Provider [facility] XR PROCEDURES Final Result * External Ultrasound Report (05/10/2024) Anatomical Region Laterality Modality Ultrasound us Provider [facility] US PROCEDURES Final Result * Falls Risk Assessment (10/18/2023) Falls Risk Assessment Abstracted us Historical Provider HEALTH MAINTENANCE Final Result * Depression Screening (10/18/2023) Depression Screening Abstracted Historical Provider MD HEALTH MAINTENANCE Final Result from Last 3 Months or Most Recently Relevant to Health Maintenance Insurance MEDICAID - [place] [employer] MEDICARE Care Teams Water Safety Instructor Relationship Specialty Start Date End Date Carlos Castañeda PA [address] [place] [address] PCP - General Internal Medicine 04/17/24
--- OUTSIDE RECORDS SUMMARY | 2024-07-20 03:30 | XMS_ITS | Encounter Summary ---
Author Organization [facility] Address [address] [place] [address] Care Team Providers Care Video Game Animator Name Role Phone Haja Donahue MD Primary Care Provider + [phone] Haja Donahue MD Primary Care Provider + [phone] Haja Donahue MD Unavailable +[phone] Brent Ellis MD Unavailable [phone] Carlos Castañeda PA-C Primary Care Provider +[phone] Nicky Miller Unavailable Unavailable Mark Acuña MD Unavailable +[phone] Nanette Wyatt PA-C Unavailable Sunita Sanchez NP Unavailable [phone] Encounter Details Date Type Department Care Team Description 02/01/2020 Orders Only Adult Medicine [address] [id number] Haja Donahue MD [address] [place] [address] [phone] Abnormal breast finding; Encounter for screening mammogram for malignant neoplasm of breast Social History Tobacco Use Types Packs/Day Years [...] Procedure Name Priority Date/Time Associated Diagnosis Comments DX MAMMO INCL CAD BI Routine 11/24/2019 Abnormal breast finding SCR MAMMO BI INCL CAD Routine 11/21/2019 Encounter for screening mammogram for malignant neoplasm of breast documented in this encounter Results * DX MAMMO INCL CAD BI (11/24/2019) Haja Donahue MD MAMMOGRAPHY * SCR MAMMO BI INCL CAD (11/21/2019) Haja Donahue MD MAMMOGRAPHY documented in this encounter Visit Diagnoses Diagnosis Abnormal breast finding Other abnormal clinical finding Encounter for screening mammogram for malignant neoplasm of breast Other screening mammogram documented in this encounter Care Teams Video Game Animator Relationship Specialty Start Date End Date Haja Donahue MD [address] [place] [address] PCP - General Internal Medicine 01/30/19 04/03/20 Haja Donahue MD [address] [place] [address] PCP - General 04/04/20 10/29/20 Carlos Castañeda PA-C [address] [place] [address] PCP - General Internal Medicine 10/30/20 Haja Donahue MD [address] [place] [address] Internal Medicine 04/04/20 Brent Ellis MD [address] [place] [address] [place] [address] Mate Relief Cardiovascular Disease 07/16/20 Nicky Miller PA [address] [place] [address] Specialist Cardiology 02/06/21 11/11/23 Mark Acuña MD [address] [place] [address] Specialist Cardiology 07/31/21 Nanette Waytt PA-C [address] [place] [address] Specialist Cardiology 07/31/21 Sunita Sanchez NP [address] [place] [address] Nurse Practitioner Cardiology 10/20/23 documented as of this encounter
--- OUTSIDE RECORDS SUMMARY | 2024-07-20 03:30 | XMS_ITS | Encounter Summary ---
Author Organization [facility] Address [address] [place] [address] Care Team Providers Care Manager Program Management Name Role Phone Minh Ferrell MD Primary Care Provider Un available Haja Donahue MD Primary Care Provider + [phone] Haja Donahue MD Primary Care Provider + [phone] Haja Donahue MD Unavailable [phone] Brent Ellis MD Unavailable [phone] Carlos Castañeda PA-C Primary Care Provider [phone] Nicky Miller Unavailable Unavailable Mark Acuña MD Unavailable [phone] Nanette Wyatt PA-C Unavailable Sunita Sanchez NP Unavailable [phone] Encounter Details Date Type Department Care Team Description 10/14/2016 [facility] Only Adult Medicine [address] [address] Minh Ferrell MD Encounter for screening mammogram for malignant neoplasm [...] Comments SCR MAMMO BI INCL CAD Routine 10/08/2016 Encounter for screening mammogram for malignant neoplasm of breast documented in this encounter Results * SCR MAMMO BI INCL CAD (10/08/2016) Minh Ferrell MD MAMMOGRAPHY documented in this encounter Visit Diagnoses Diagnosis Encounter for screening mammogram for malignant neoplasm of breast Other screening mammogram documented in this encounter Care Teams Manager Program Management Relationship Specialty Start Date End Date Minh Ferrell MD PCP - General Internal Medicine 08/30/15 01/29/19 Haja Donahue MD [address] [place] [address] PCP - General Internal Medicine 01/30/19 04/03/20 Haja Donahue MD [address] [place] [address] PCP - General 04/04/20 10/29/20 Carlos Castañeda PA-C [address] [place] [address] PCP - General Internal Medicine 10/30/20 Haja Donahue MD [address] [place] [address] Internal Medicine 04/04/20 Brent Ellis MD [address] [place] [address] [place] [address] Receptionist Clerk Cardiovascular Disease 07/16/20 Nicky Miller PA [address] [place] [address] Specialist Cardiology 02/06/21 11/11/23 Mark Acuña MD [address] [place] [address] Specialist Cardiology 07/31/21 Nanette Wyatt PA-C [address] [place] [address] Specialist Cardiology 07/31/21 Sunita Sanchez NP [address] [place] [address] Nurse Practitioner Cardiology 10/20/23 documented as of this encounter
--- OUTSIDE RECORDS SUMMARY | 2024-07-20 03:30 | XMS_ITS | Encounter Summary ---
Author Organization [facility] Address [address] [place] [address] Care Team Providers Care Tc Operator Name Role Phone Minh Ferrell MD Primary Care Provider Un available Haja Donahue MD Primary Care Provider + [phone] Haja Donahue MD Primary Care Provider + [phone] Haja Donahue MD Unavailable [phone] Brent Ellis MD Unavailable +[phone] Carlos Castañeda PA-C Primary Care Provider [phone] Nicky Miller Unavailable Unavailable Mark Acuña MD Unavailable [phone] Nanette Wyatt PA-C Unavailable Sunita Sanchez NP Unavailable [phone] Encounter Details Date Type Department Care Team Description 03/18/[facility] [address] [place] [address] Abstract, Provider Social History Tobacco Use Types [...] on filedocumented in this encounter Care Teams Tc Operator Relationship Specialty Start Date End Date Minh Ferrell MD PCP - General Internal Medicine 08/30/15 01/29/19 Haja Donahue MD [address] [place] [address] PCP - General Internal Medicine 01/30/19 04/03/20 Haja Donahue MD [address] [place] [address] PCP - General 04/04/20 10/29/20 Carlos Castañeda PA-C [address] [place] [address] PCP - General Internal Medicine 10/30/20 Haja Donahue MD [address] [place] [address] Internal Medicine 04/04/20 Brent Ellis MD [address] [place] [address] Floral Assistant Cardiovascular Disease 07/16/20 Nicky Miller PA [address] [place] [address] Specialist Cardiology 02/06/21 11/11/23 Mark Acuña MD [address] [address] Specialist Cardiology 07/31/21 Nanette Wyatt PA-C [address] [address] Specialist Cardiology 07/31/21 Sunita Sanchez NP [address] [place] [address] Nurse Practitioner Cardiology 10/20/23 documented as of this encounter
--- OUTSIDE RECORDS SUMMARY | 2024-07-20 03:30 | XMS_ITS | Encounter Summary ---
Author Organization [facility] Address [address] [place] [address] Care Team Providers Care Online Marketing Manager Name Role Phone Minh Ferrell MD Primary Care Provider Un available Haja Donahue MD Primary Care Provider + [phone] Haja Donahue MD Primary Care Provider + [phone] Haja Donahue MD Unavailable [phone] Brent Ellsi MD Unavailable [phone] Carlos Castañeda PA-C Primary Care Provider [phone] Nicky Miller Unavailable Unavailable Mark Acuña MD Unavailable Nanette Wyatt PA-C Unavailable Sunita Sanchez NP Unavailable [phone] Encounter Details Date Type Department Care Team Description 08/19/2016 [facility] Medical Records [address] [place] [address] Abstract, Provider Social History Tobacco Use Types [...] on filedocumented in this encounter Care Teams Online Marketing Manager Relationship Specialty Start Date End Date Minh Ferrell MD PCP - General Internal Medicine 08/30/15 01/29/19 Haja Donahue MD [address] [place] [address] PCP - General Internal Medicine 01/30/19 04/03/20 Haja Donahue MD [address] [place] [address] PCP - General 04/04/20 10/29/20 Carlos Castañeda PA-C [address] [place] [address] PCP - General Internal Medicine 10/30/20 Haja Donahue MD [address] [place] [address] Internal Medicine 04/04/20 Brent Ellis MD [address] [place] [address] Fuel Verification Technician Cardiovascular Disease 07/16/20 Nicky Miller PA [address] [place] [address] Specialist Cardiology 02/06/21 11/11/23 Mark Acuña MD [address] [address] Specialist Cardiology 07/31/21 Nanette Wyatt PA-C [address] [address] Specialist Cardiology 07/31/21 Sunita Sanchez NP [address] [place] [address] Nurse Practitioner Cardiology 10/20/23 documented as of this encounter
--- OUTSIDE RECORDS SUMMARY | 2024-07-20 03:30 | XMS_ITS | Encounter Summary ---
Author Organization [facility] Address [address] [place] [address] Care Team Providers Care Hatchery Supervisor Name Role Phone Haja Donahue MD Primary Care Provider + [phone] Haja Donahue MD Primary Care Provider + [phone] Haja Donahue MD Unavailable [phone] Brent Ellis MD Unavailable [phone] Carlos Castañeda PA-C Primary Care Provider +[phone] Nicky Miller Unavailable Unavailable Mark Acuña MD Unavailable [phone] Nanette Wyatt PA-C Unavailable Sunita Sanchez NP Unavailable [phone] Encounter Details Date Type Department Care Team Description 08/08/2019 [facility] Medical Records [address] [place] [address] Social History Tobacco Use Types Packs/Day Years [...] on filedocumented in this encounter Care Teams Hatchery Supervisor Relationship Specialty Start Date End Date Haja Donahue MD [address] [place] [address] PCP - General Internal Medicine 01/30/19 04/03/20 Haja Donahue MD [address] [place] [address] PCP - General 04/04/20 10/29/20 Carlos Castañeda PA-C [address] [place] [address] PCP - General Internal Medicine 10/30/20 Haja Donahue MD [address] [place] [address] Internal Medicine 04/04/20 Brent Ellis MD [address] [place] [address] Car Builder Cardiovascular Disease 07/16/20 Nicky Miller PA [address] [place] [address] Specialist Cardiology 02/06/21 11/11/23 Mark Acuña MD [address] [address] Specialist Cardiology 07/31/21 Nanette Wyatt PA-C [address] [address] Specialist Cardiology 07/31/21 Sunita Sanchez NP [address] [place] [address] Nurse Practitioner Cardiology 10/20/23 documented as of this encounter
--- OUTSIDE RECORDS SUMMARY | 2024-07-20 03:30 | XMS_ITS | Encounter Summary ---
Author Organization [facility] Address [address] [place] [address] Care Team Providers Care Instrument Panel Assembler Name Role Phone Haja Donahue MD Unavailable [phone] Brent Ellis MD Unavailable [phone] Carlos Castañeda PA-C Primary Care Provider [phone] Nicky Miller Unavailable Unavailable Mark Acuña MD Unavailable [phone] Nanette Wyatt PA-C Unavailable Sunita Sanchez NP Unavailable [phone] Encounter Details Date Type Department Care Team Description 06/03/2023 [facility] Medical Records [address] [place] [id number] [place] [address] Social History Tobacco Use Types Packs/Day Years [...] Date/Time Associated Diagnosis Comments OUTSIDE EKG Routine 06/03/[address] Routine 06/03/2023 OUTSIDE PLAIN FILM Routine 06/03/2023 OUTSIDE LAB Routine 06/03/2023 OUTSIDE LAB Routine 06/03/2023 documented in this encounter Results * OUTSIDE PLAIN FILM (06/03/2023) Provider Abstract RADIOLOGY * OUTSIDE CT (06/03/2023) Provider Abstract RADIOLOGY * OUTSIDE LAB (06/03/2023) Provider Abstract LAB * OUTSIDE LAB (06/03/2023) Provider Abstract LAB * OUTSIDE EKG (06/03/2023) Provider Abstract CARDIOLOGY documented in this encounter Visit Diagnoses Not on filedocumented in this encounter Care Teams Instrument Panel Assembler Relationship Specialty Start Date End Date Carlos Castañeda PA-C [address] [place] [address] PCP - General Internal Medicine 10/30/20 Haja Donahue MD [address] [place] [address] Internal Medicine 04/04/20 Brent Ellis MD [address] [place] [address] Customer Experience Consultant Cardiovascular Disease 07/16/20 Nicky Miller PA [address] [place] [address] Specialist Cardiology 02/06/21 11/11/23 Mark Acuña MD [address] [address] Specialist Cardiology 07/31/21 Nanette Wyatt PA-C [address] [address] Specialist Cardiology 07/31/21 Sunita Sanchez NP [address] [phone] Nurse Practitioner Cardiology 10/20/23 documented as of this encounter
--- OUTSIDE RECORDS SUMMARY | 2024-07-20 03:30 | XMS_ITS | Encounter Summary ---
Author Organization [facility] Address [address] [place] [address] Care Team Providers Care Personal Development Educator Name Role Phone Minh Ferrell MD Primary Care Provider Un available Haja Donahue MD Primary Care Provider + [phone] Haja Donahue MD Primary Care Provider + [phone] Haja Donahue MD Unavailable [phone] Brent Ellis MD Unavailable [phone] Carlos Castañeda PA-C Primary Care Provider [phone] Nicky Miller Unavailable Unavailable Mark Acuña MD Unavailable +[phone] Nanette Wyatt PA-C Unavailable Sunita Sanchez NP Unavailable [phone] Encounter Details Date Type Department Care Team Description 08/18/2016 Orders Only Adult Medicine [address] [address] Minh Ferrell MD Social History Tobacco Use Types Packs/Day [...] on filedocumented in this encounter Care Teams Personal Development Educator Relationship Specialty Start Date End Date Minh Ferrell MD PCP - General Internal Medicine 08/30/15 01/29/19 Haja Donahue MD [address] [place] [address] PCP - General Internal Medicine 01/30/19 04/03/20 Haja Donahue MD [address] [place] [address] PCP - General 04/04/20 10/29/20 Carlos Castañeda PA-C [address] [place] [address] PCP - General Internal Medicine 10/30/20 Haja Donahue MD [address] [place] [address] Internal Medicine 04/04/20 Brent Ellis MD [address] [place] [address] Calibration Engineer Cardiovascular Disease 07/16/20 Nicky Miller PA [address] [place] [address] Specialist Cardiology 02/06/21 11/11/23 Mark Acuña MD [address] [address] Specialist Cardiology 07/31/21 Nanette Wyatt PA-C [address] [address] Specialist Cardiology 07/31/21 Sunita Sanchez NP [address] [place] [address] Nurse Practitioner Cardiology 10/20/23 documented as of this encounter
--- OUTSIDE RECORDS SUMMARY | 2024-07-20 03:30 | XMS_ITS | Encounter Summary ---
Author Organization [facility] Address [address] [place] [address] Care Team Providers Care Utilization Management Manager Name Role Phone Haja Donahue MD Primary Care Provider + [phone] Haja Donahue MD Primary Care Provider + [phone] Haja Donahue MD Unavailable [phone] Brent Ellis MD Unavailable [phone] Carlos Castañeda PA-C Primary Care Provider [phone] Nicky Miller Unavailable Unavailable Mark Acuña MD Unavailable [phone] Nanette Wyatt PA-C Unavailable Sunita Sanchez NP Unavailable [phone] Reason for Visit * Reason Comments E-prescribe Rx Request Encounter Details Date Type Department Care Team Description 09/02/2019 Refill Adult Medicine [address] [id number] Haja Donahue MD [address] [place] [address] [id number] E-prescribe Rx Request Social History Tobacco Use [...] encounter Miscellaneous Notes * Telephone Encounter - Melchor Mendoza M.A. - 09/04/2019 1:12 PM EDT Faxed to pharmacy * Telephone Encounter - Bre Muñiz M.A. - 09/04/2019 12:09 PM EDT Lab Results Component Value Date NA 140 07/20/2019 K 4.3 07/20/2019 CO2 27 07/20/2019 CL 109 07/20/2019 BUN 23 07/20/2019 CREAT 1.26 07/20/2019 GLU 79 07/20/2019 CA 9.2 07/20/2019 GFR 43 07/20/2019 * Telephone Encounter - Maribell Drummond - 09/04/2019 11:33 AM EDT Patient would like script to be: E-PRESCRIBED/FAXED TO PHARMACY WHEN WAS THE PATIENT'S LAST APPOINTMENT IN ADULT MEDICINE? 08/16/19 WHEN WAS THE LAST TIME THE PATIENT SAW THEIR PCP? Same as above Does patient have an upcoming appointment? Yes 11/16/19 (THE MEDICATION REQUESTED IS ON THE MED [...] / Plan: [place] / Product Type: MEDICARE [id number] documented in this encounter Plan of Treatment Not on file documented as of this encounter Visit Diagnoses Not on filedocumented in this encounter Care Teams Utilization Management Manager Relationship Specialty Start Date End Date Haja Donahue MD [address] [place] [address] PCP - General Internal Medicine 01/30/19 04/03/20 Haja Donahue MD [address] [place] [address] 279[address] PCP - General 04/04/20 10/29/20 Carlos Castañeda PA-C [address] [place] [address] PCP - General Internal Medicine 10/30/20 Haja Donahue MD [address] [place] [address] 80[address] Internal Medicine 04/04/20 Brent Ellis MD [address] [place] [address] [place] [address] Plan Rep Cardiovascular Disease 07/16/20 Nicky Miller PA [address] [place] [address] Specialist Cardiology 02/06/21 11/11/23 Mark Acuña MD [address] [address] Specialist Cardiology 07/31/21 Nanette Wyatt PA-C [address] [address] Specialist Cardiology 07/31/21 Sunita Sanchez NP 2 [facility] [address] [place] [address] Nurse Practitioner Cardiology 10/20/23 documented as of this encounter
--- OUTSIDE RECORDS SUMMARY | 2024-07-20 03:30 | XMS_ITS | Encounter Summary ---
Author Organization [facility] Address [address] [place] [address] Care Team Providers Care Dual Rate Supervisor Name Role Phone Minh Ferrell MD Primary Care Provider Un available Haja Donahue MD Primary Care Provider + [phone] Haja Donahue MD Primary Care Provider + [phone] Haja Donahue MD Unavailable [phone] Brent Ellis MD Unavailable [phone] Carlos Castañeda PA-C Primary Care Provider [phone] Nicky Miller Unavailable Unavailable Mark Acuña MD Unavailable [phone] Nanette Wyatt PA-C Unavailable Sunita Sanchez NP Unavailable [phone] Encounter Details Date Type Department Care Team Description 11/08/2017 [facility] Medical Records [address] [place] [address] Abstract, Provider Social History Tobacco Use Types [...] on filedocumented in this encounter Care Teams Dual Rate Supervisor Relationship Specialty Start Date End Date Minh Ferrell MD PCP - General Internal Medicine 08/30/15 01/29/19 Haja Donahue MD [address] [place] [address] PCP - General Internal Medicine 01/30/19 04/03/20 Haja Donahue MD [address] [place] [address] PCP - General 04/04/20 10/29/20 Carlos Castañeda PA-C [address] [place] [address] PCP - General Internal Medicine 10/30/20 Haja Donahue MD [address] [place] [address] Internal Medicine 04/04/20 Brent Ellis MD [address] [place] [address] [employer] Department Cardiovascular Disease 07/16/20 Nicky Miller PA [address] [place] [address] Specialist Cardiology 02/06/21 11/11/23 Mark Acuña MD [address] [address] Specialist Cardiology 07/31/21 Nanette Wyatt PA-C [address] [address] Specialist Cardiology 07/31/21 Sunita Sanchez NP [address] [place] [address] Nurse Practitioner Cardiology 10/20/23 documented as of this encounter
--- OUTSIDE RECORDS SUMMARY | 2024-07-20 03:30 | XMS_ITS | Encounter Summary ---
Author Organization [facility] Address [address] [place] [address] Care Team Providers Care Lockstitch Shoulder Joiner Name Role Phone Haja Donahue MD Unavailable [phone] Brent Ellis MD Unavailable [phone] Carlos Castañeda PA-C Primary Care Provider [phone] Nicky Miller Unavailable Unavailable Mark Acuña MD Unavailable [phone] Nanette Wyatt PA-C Unavailable Sunita Sanchez NP Unavailable [phone] Encounter Details Date Type Department Care Team Description 07/25/2021 [facility] Medical Records [address] [place] [id number] [place] [address] Social History Tobacco Use Types Packs/Day Years [...] on filedocumented in this encounter Care Teams Lockstitch Shoulder Joiner Relationship Specialty Start Date End Date Carlos Castañeda PA-C [address] [place] [address] PCP - General Internal Medicine 10/30/20 Haja Donahue MD [address] [place] [address] Internal Medicine 04/04/20 Brent Ellis MD [address] [place] [address] Lining Finisher Cardiovascular Disease 07/16/20 Nicky Miller PA [address] [place] [address] Specialist Cardiology 02/06/21 11/11/23 Mark Acuña MD [address] [address] Specialist Cardiology 07/31/21 Nanette Wyatt PA-C [address] [address] Specialist Cardiology 07/31/21 Sunita Sanchez NP [address] [place] [address] Nurse Practitioner Cardiology 10/20/23 documented as of this encounter
--- OUTSIDE RECORDS SUMMARY | 2024-07-20 03:30 | XMS_ITS | Encounter Summary ---
Author Organization [facility] Address [address] [place] [address] Care Team Providers Care Chiropractic Teacher Name Role Phone Minh Ferrell MD Primary Care Provider Un available Haja Donahue MD Primary Care Provider + [phone] Haja Donahue MD Primary Care Provider + [phone] Haja Donahue MD Unavailable [phone] Brent Ellis MD Unavailable [phone] Carlos Castañeda PA-C Primary Care Provider [phone] Nicky Miller Unavailable Unavailable Mark Acuña MD Unavailable [phone] Nanette Wyatt PA-C Unavailable Sunita Sanchez NP Unavailable [phone] Encounter Details Date Type Department Care Team Description 01/15/2016 [facility] Medical Records [address] [place] [address] Abstract, Provider Social History Tobacco Use Types [...] on filedocumented in this encounter Care Teams Chiropractic Teacher Relationship Specialty Start Date End Date Minh Ferrell MD PCP - General Internal Medicine 08/30/15 01/29/19 Haja Donahue MD [address] [place] [address] PCP - General Internal Medicine 01/30/19 04/03/20 Haja Donahue MD [address] [place] [address] PCP - General 04/04/20 10/29/20 Carlos Castañeda PA-C [address] [place] [address] PCP - General Internal Medicine 10/30/20 Haja Donahue MD [address] [place] [address] Internal Medicine 04/04/20 Brent Ellis MD [address] [place] [address] Cutter [employer] Knife Cardiovascular Disease 07/16/20 Nicky Miller PA [address] [place] [address] Specialist Cardiology 02/06/21 11/11/23 Mark Acuña MD [address] [address] Specialist Cardiology 07/31/21 Nanette Wyatt PA-C [address] [address] Specialist Cardiology 07/31/21 Sunita Sanchez NP [address] [place] [address] Nurse Practitioner Cardiology 10/20/23 documented as of this encounter
--- OUTSIDE RECORDS SUMMARY | 2024-07-20 03:30 | XMS_ITS | Encounter Summary ---
Author Organization [facility] Address [address] [place] [address] Care Team Providers Care Food Adviser Name Role Phone Haja Donahue MD Unavailable [phone] Brent Ellis MD Unavailable [phone] Carlos Castañeda PA-C Primary Care Provider [phone] Nicky Miller Unavailable Unavailable Mark Acuña MD Unavailable [phone] Nanette Wyatt PA-C Unavailable Sunita Sanchez NP Unavailable [phone] Encounter Details Date Type Department Care Team Description 11/01/2021 [facility] Medical Records [address] [place] [id number] [place] [address] Social History Tobacco Use Types Packs/Day Years [...] Date/Time Associated Diagnosis Comments OUTSIDE EKG Routine 11/01/2021 OUTSIDE PLAIN FILM Routine 11/01/2021 OUTSIDE LAB Routine 11/01/2021 OUTSIDE LAB Routine 11/01/2021 documented in this encounter Results * OUTSIDE PLAIN FILM (11/01/2021) Provider Abstract RADIOLOGY * OUTSIDE LAB (11/01/2021) Provider Abstract LAB * OUTSIDE LAB (11/01/2021) Provider Abstract LAB * OUTSIDE EKG (11/01/2021) Provider Abstract CARDIOLOGY documented in this encounter Visit Diagnoses Not on filedocumented in this encounter Care Teams Food Adviser Relationship Specialty Start Date End Date Carlos Castaeñda PA-C [address] [place] [address] PCP - General Internal Medicine 10/30/20 Haja Donahue MD [address] [place] [address] Internal Medicine 04/04/20 Brent Ellis MD [address] [place] [address] [place] [address] Protective Services Officer Cardiovascular Disease 07/16/20 Nicky Miller PA [address] [place] [address] Specialist Cardiology 02/06/21 11/11/23 Mark Acuña MD [address] [address] Specialist Cardiology 07/31/21 Nanette Wyatt PA-C [address] [address] Specialist Cardiology 07/31/21 Sunita Sanchez, LASHANDA [address] [place] [address] Nurse Practitioner Cardiology 10/20/23 documented as of this encounter
[2024-07-20 03:32] LABS: Basophils Absolute Auto 0.1 X10*3/uL (0.0-0.2); Basophils Percent Auto 0.6 % (0-2); Eosinophils Absolute Auto 0.3 X10*3/uL (0.0-0.4); Eosinophils Percent Auto 1.9 % (0-4); Hematocrit 42.4 % (37.0-47.0); Hemoglobin 14.2 g/dl (12.0-16.0); Imm Gran Abs Auto 0.08 X10*3/uL (0.00-0.03); Imm Gran Pct Auto 0.6 % (0.0-0.4); Lymphocytes Absolute Auto 1.2 X10*3/uL (1.2-4.9); Lymphocytes Percent Auto 8.5 % (20-40); MANUAL DIFF FLAG NO; Mean Corpuscular HGB Conc 33.5 g/dl (31.0-35.0); Mean Corpuscular Hemoglobin 30.6 pg (27.0-33.0); Mean Corpuscular Volume 91.4 fL (80.0-98.0); Mean Platelet Volume 10.5 fL (9.4-12.3); Monocytes Absolute Auto 0.8 X10*3/uL (0.1-1.2); Monocytes Percent Auto 5.3 % (2-11); Neutrophils Absolute Auto 11.9 x10*3/uL (2.0-8.3); Neutrophils Percent Auto 83.1 % (45-73); Platelet Count 192 X10*3/uL (160-400); Red Blood Count 4.64 X10*6/uL (4.20-5.50); Red Cell Distribution Width 13.2 % (11.0-16.0); White Blood Count 14.3 X10*3/uL (4.8-10.8)
[2024-07-20 03:44] LABS: Anion Gap 15 (12-20); Blood Urea Nitrogen 29 mg/dL (9-16); Calcium 9.5 mg/dL (8.4-10.2); Carbon Dioxide 22 mmol/L (22-29); Chloride 109 mmol/L (96-108); Creatinine Clr Calc Pharmacy 40.1; Estimated Glomerular Filt Rate 37; Glucose Random 113 mg/dL (60-115); Potassium 4.7 mmol/L (3.3-5.1); Sodium 141 mmol/L (135-145)
[2024-07-20 05:59] LABS: Influenza A PCR NEGATIVE (Negative); Influenza B PCR NEGATIVE (Negative); Resp Syncy Virus RNA Qual PCR NEGATIVE (Negative); SARS COV2 PCR INHOUSE NEGATIVE (Negative)
[2024-07-20 06:07] LABS: Appearance Urine Clear; Color Urine Yellow; Glucose Urine UA Negative (Negative); Leukocyte Esterase Urine Large (3+) (Negative); Nitrite Urine Negative (Negative); Specific Gravity - Urine 1.015 (1.005-1.025); UMIC TRIGGER UACC YES; Urine Blood Negative (Negative); Urine Ketones Negative (Negative); Urine Protein Negative (Neg-Trace)
[2024-07-20 06:12] LABS: Bacteria Urine 1+ (None Seen); Hyaline Casts Urine 0-2 /LPF (0-2); RBC Urine 0-2 /HPF (0-2); UACC Culture Trigger YES; WBC Urine 21-50 /HPF (0-5)
--- NOTE | 2024-07-20 06:40 | PC.NURSE ---
pt difficult stick delaying medications
[2024-07-20] MEDS: 0.9 % Sodium Chloride 1,000 ML 999 ML IV ×2 (07:06→08:54)
[2024-07-20] MEDS: Metoclopramide HCl 10 MG/2 ML VIAL IVPUSH (07:06)
--- NOTE | 2024-07-20 07:11 | ED_ITS ---
HPI - Abdominal Pain General Chief Complaint: Abdominal Pain Stated Complaint: ABDOMINAL PAIN/ NAUSEA/VOMITTING Time Seen by Provider: 07/20/24 07:11 Source: patient and RN notes reviewed Mode of arrival: ambulatory Limitations: no limitations History of Present Illness ED Provider: Tessie Bowden PA-C HPI narrative: This is a 69-year-old female, with a past medical history of hypertension and SBO (managed at [facility] in 2022) who presents emergency department for concerns for abdominal pain. Your reports that yesterday afternoon she suddenly developed abdominal pain, and had an episode of nausea and vomiting. She states that she has vomited several times. Patient reports that her pain is on the right side, as constant, waxes and wanes in severity. She denies any fevers, chills, chest pain, shortness of breath. She does endorse some nausea which was relieved with medication she was given prior to evaluation. She does report that she has had a small bowel obstruction in the past which required surgery. She also reports that she had 2 sections. She last moved her bowels 2 days ago which is normal for her. She does report urinary urgency however states that she has chronic urinary issues. No other complaints or concerns at this time. MD elicited complaint: abdominal pain Pain Consistency: constant Location: RUQ and RLQ Severity: moderate Quality: cramping and stabbing Radiation: none Migration to: no migration Exacerbating factors: nothing Relieving factors: nothing Associated symptoms: nausea and vomiting Related Data Home Medications ?Medication ?Instructions ?Recorded ?Confirmed atorvastatin 20 mg tablet 20 mg PO DAILY 08/22/21 06/08/24 cyclobenzaprine 10 mg tablet 10 mg PO BID PRN Muscle Spasm 08/22/21 06/08/24 levothyroxine 75 mcg tablet 75 mcg PO DAILY 08/22/21 06/08/24 metoprolol succinate 100 mg 100 mg PO DAILY 08/22/21 06/08/24 tablet,extended release 24 hr omeprazole 20 mg capsule,delayed 20 mg PO DAILY 08/22/21 06/08/24 release ropinirole 0.25 mg tablet 0.25 mg PO BID 08/22/21 06/08/24 meclizine 25 mg tablet 25 mg PO TID PRN Dizziness 04/07/23 06/08/24 ondansetron 4 mg disintegrating 4 mg PO Q8-10H PRN Nausea 11/01/23 01/02/25 tablet amlodipine 10 mg tablet 10 mg PO DAILY 04/26/24 06/08/24 ascorbic acid (vitamin C) 250 mg 250 mg PO DAILY 04/26/24 06/08/24 tablet aspirin 81 mg tablet,delayed 81 mg PO DAILY 04/26/24 06/08/24 release calcium 600 mg (as 1 tab PO DAILY 04/26/24 06/08/24 carbonate)-vitamin D3 5 mcg (200 unit) tablet cholecalciferol (vitamin D3) 10 10 mcg PO DAILY 04/26/24 06/08/24 mcg (400 unit) tablet cyanocobalamin (vitamin B-12) 1,000 mcg PO DAILY 04/26/24 06/08/24 1,000 mcg tablet dextromethorphan-guaifenesin 20 10 ml PO Q6-8H PRN Cough 04/26/24 06/08/24 mg-200 mg/10 mL oral liquid in packet lidocaine 5 % topical patch 1 patch topical DAILY 04/26/24 06/08/24 multivitamin 1 tab PO DAILY 04/26/24 06/08/24 tolterodine 4 mg capsule,extended 4 mg PO DAILY 04/26/24 06/08/24 release 24 hr zonisamide 100 mg capsule 100 mg PO BID PRN Nausea 04/26/24 06/08/24 spironolactone 50 mg tablet 50 mg PO DAILY 06/08/24 06/08/24 Previous Rx's ?Medication ?Instructions ?Recorded albuterol sulfate 90 mcg/actuation 2 puff inhalation Q4-6H PRN 01/08/24 aerosol inhaler shortness of breath or wheezing #8.5 grams acetaminophen 300 mg-codeine 30 mg 1 tab PO Q4H PRN pain #14 tabs 05/10/24 tablet walker #1 ea 05/10/24 Allergies Allergy/AdvReac Type Severity Reaction Status Date / Time gluten [GLUTEN] Allergy Unknown UNKNOWN Verified 07/20/24 03:07 mushroom Allergy Unknown UNKNOWN Verified 07/20/24 03:07 Review of Systems Review of Systems Yes all other systems are reviewed and are negative Constitutional: Reports as per [facility] Past Medical History Medical History (Updated 07/20/24 @ 10:25 by VON Nunez) Osteopenia Glaucoma Osteoarthritis CKD (chronic kidney disease) stage 3, GFR 30-59 ml/min Vitamin D deficiency Vitamin B12 deficiency Shoulder pain, left Back pain Anxiety LOC (loss of consciousness) Bilateral leg edema Chest pain Dyspnea RLS (restless legs syndrome) Depression Presence of implantable pulmonary artery pressure and heart rate monitoring system Right knee injury Right shoulder injury Femur fracture, right Femur fracture, left delivery delivered Migraine Restless Kidney disease Heart murmur Overactive bladder Overactive adult syndrome Thyroid disease Hyperlipidemia Hypertension Surgical History (Updated 06/08/24 @ 10:34 by MELISSA Gerard) History of cataract surgery (~05/2024) History of surgery Social History Social History Alcohol intake: never Patient Tobacco Use Status: Never used Tobacco Smoked in Last 30 Days: No Substance Use Type: Marijuana Substance Use Frequency: Occasionally Substance Use Frequency Other:: daphne for pain relief only Last Used Substance: Days (ago) Any prior treatment program specific to substance use: No Advance Directives: Yes Advance Directives on File: Yes Advance Directives Date on File: 09/10/20 Do you have a plan to hurt others: No Plan Physical Exam ED Vital Signs: Vital Signs - 24 hr 07/20/24 03:04 07/20/24 05:46 07/20/24 07:10 Temperature 98.0 F 97.9 F 97.9 F Pulse Rate 55 59 59 Respiratory Rate 16 18 20 Blood Pressure 135/47 L 124/53 L 129/48 L Pulse Oximetry 97 96 95 Oxygen Delivery Method Room Air Room Air Room Air BMI result Body Mass Index 31.1 Const General: cooperative, comfortable and no acute distress Orientation/consciousness: patient oriented x3 Limitations: no limitations HENMT Head: Yes normal to inspection, Yes normocephalic and Yes atraumatic Ears: hearing grossly normal bilaterally General nose exam: Normal external nose present Face and sinus: Yes normal facial exam Mouth: Normal oral and palatal mucosa present, oropharynx normal and moist mucous membranes Throat: Yes posterior oropharynx normal Eyes General: appearance normal, both eyes and all related structures Eyelids: Yes eyelids normal Conjunctivae: conjunctivae normal Sclerae: sclerae normal Pupils: Equal, round and reactive pupils present EOM: EOMs intact bilaterally Neck Neck: Yes normal visual inspection, Yes full ROM and Yes no lymphadenopathy Lymphatic: no lymphadenopathy noted Chest Chest palpation & inspection: normal inspection of the chest Resp Effort & Inspection: normal respiratory effort and able to speak in complete sentences Auscultation: clear to auscultation bilaterally, no crackles, no rales, no rhonchi and no wheezes Cardio Rate: regular rate Rhythm: regular rhythm Heart sounds: S1 normal heart sound present and S2 normal heart sound present GI Other: Abdomen is soft, with tenderness palpation in the right upper and right lower quadrant. No rebound or guarding. Hypoactive bowel sounds present Inspection: Yes normal to inspection Skin General skin exam: no rashes or lesions noted Trauma: no lacerations or abrasions Wounds: no wounds Neuro General: patient oriented x3 and moves all extremities Cranial nerves: Yes Equal, round and reactive pupils present Extrem General: Yes normal to inspection Right upper extremity: normal to inspection Left upper extremity: normal to inspection Right lower extremity: normal to inspection Left lower extremity: normal to inspection Course Reevaluation(s) Reevaluation #1: CT scan revealing large amount of stool within the colon, as well as a mild dilatation of the proximal small bowel with collapsed distal loops. Findings may represent ileus or early small bowel obstruction. Discussed case with Dr. Herndon, he will come down and assess patient when he has a free moment. She is not vomiting, will continue to be NPO. Time: 09:49 Reevaluation #2: Dr. Herndon came and evaluated patient. Will admit to their service. Transfer of care initiated. Time: 10:25 Medical Decision Making Medical Decision Making MDM Narrative: This is a 69-year-old female, with a past medical history of hypertension, SBO, who presents emergency department complaints of acute onset abdominal pain and nausea and vomiting which started yesterday. Patient initially presented at 3:00 a.m. this morning however she was not evaluated until approximately 730 this morning. Abdomen is soft with tenderness palpation in the right upper and right lower quadrant. Labs were obtained prior to my assessment, she does have leukocytosis at 14.3 with slight left shift, she does have an elevated creatinine at 1.4, and BUN at 29, she also has an elevated alk phos at 1:29 a.m.. Urine with large leuk esterases and wbc's with 1+ bacteria and squamous cells. Negative flu, COVID, RSV. Differential diagnoses include acute gastritis, gastroenteritis, SBO, diverticulitis, diverticulosis, JOSE DE JESUS. Given patient's creatinine is typically around 1, this is increased, he she has slight JOSE DE JESUS therefore she was given 2 L of IV fluids. CT abdomen and pelvis with IV contrast ordered to rule out any acute process. Differential Diagnosis Differential Diagnoses: The differential diagnosis associated with the presentation includes See above Admission/Observation Consideration of admission/observation: Escalation of care including admission/observation considered Lab Data MDM Lab Attestation statement: I reviewed the patient's lab results. 07/20/24 03:27 07/20/24 03:27 Labs: Lab Results 07/20/24 07/20/24 07/20/24 Range/Units 03:27 03:54 06:01 WBC 14.3 H (4.8-10.8) X10*3/uL RBC 4.64 (4.20-5.50) X10*6/uL Hgb 14.2 (12.0-16.0) g/dl Hct 42.4 (37.0-47.0) % MCV 91.4 (80.0-98.0) fL MCH 30.6 (27.0-33.0) pg MCHC 33.5 (31.0-35.0) g/dl RDW 13.2 (11.0-16.0) % Plt Count 192 (160-400) X10*3/uL MPV 10.5 (9.4-12.3) fL Immature Gran % (Auto) 0.6 H (0.0-0.4) % Neut % (Auto) 83.1 H (45-73) % Lymph % (Auto) 8.5 L (20-40) % [place] % (Auto) 5.3 (2-11) % Eos % (Auto) 1.9 (0-4) % Baso % (Auto) 0.6 (0-2) % Lymph # (Auto) 1.2 (1.2-4.9) X10*3/uL [place] # (Auto) 0.8 (0.1-1.2) X10*3/uL Eos # (Auto) 0.3 (0.0-0.4) X10*3/uL Baso # (Auto) 0.1 (0.0-0.2) X10*3/uL Abs Immat Gran (auto) 0.08 H (0.00-0.03) X10*3/uL Absolute Neuts (auto) 11.9 H (2.0-8.3) x10*3/uL Absolute Nucleated RBC 0.000 (0.0-0.012) X10*3/uL Nucleated RBC % (auto) 0.0 (0.0-0.2) /100WBC Sodium 141 (135-145) mmol/L Potassium 4.7 D (3.3-5.1) mmol/L Chloride 109 H (96-108) mmol/L Carbon Dioxide 22 (22-29) mmol/L Anion Gap 15 (12-20) BUN 29 H (9-16) mg/dL Creatinine 1.41 H (0.5-1.4) mg/dL Estim Creat Clear Calc 40.1 Estimated GFR 37 Random Glucose 113 (60-115) mg/dL Calcium 9.5 (8.4-10.2) mg/dL Total Bilirubin 0.5 (0.0-1.0) mg/dL Direct Bilirubin 0.2 (0.0-0.5) mg/dL AST 19 (5-31) U/L ALT 15 (0-31) U/L Alkaline Phosphatase 129 H (39-117) U/L Total Protein 7.8 (6.5-8.0) g/dL Albumin 4.2 (3.5-5.0) g/dL Urine Color Yellow Urine Appearance Clear Urine pH 6.0 (5.0-9.0) Ur Specific [place] 1.015 (1.005-1.025) Urine Protein Negative (Neg-Trace) mg/dL Urine Glucose (UA) Negative (Negative) mg/dL Urine Ketones Negative (Negative) mg/dL Urine Blood Negative (Negative) Urine Nitrite Negative (Negative) Ur Leukocyte Esterase Large (3+) H (Negative) Urine RBC 0-2 (0-2) /HPF Urine WBC 21-50 H (0-5) /HPF Ur Squamous Epith Cells 3-5 (0-2) /HPF Urine Bacteria 1+ (None Seen) Hyaline Casts 0-2 (0-2) /LPF Influenza Type A (PCR) NEGATIVE (Negative) Influenza Type B (PCR) NEGATIVE (Negative) RSV RNA Qual (PCR) NEGATIVE (Negative) SARS-CoV-2 RNA (RT-PCR) NEGATIVE (Negative) Radiology Impression Discussion of test interpretation with radiology: I have reviewed the radiologist's reading. External Record Review External record reviewed: Inpatient record, Office record, Outpatient record, Prior outpatient labs, Prior outpatient radiology, Primary care record and Outside ED record Medications Administered Discontinued Medications Generic Name Dose Route Start Last Admin Trade Name Freq PRN Reason Stop Dose Admin Sodium Chloride 1,000 mls @ 999 mls/hr 07/20/24 06:02 07/20/24 08:54 Ns IV 07/20/24 07:02 Infused .Q1H1M ONE Infusion Acetaminophen 1,000 mg in 100 mls @ 400 mls/hr 07/20/24 07:35 07/20/24 08:19 Ofirmev IV 07/20/24 07:49 Infused ONCE ONE Infusion Sodium Chloride 1,000 mls @ 999 mls/hr 07/20/24 07:35 07/20/24 08:54 Ns IV 07/20/24 08:35 999 mls/hr .Q1H1M ONE Administration Iohexol 100 ml 07/20/24 08:33 07/20/24 08:38 Iohexol 350 Mg/Ml 100 Ml Infus..Btl IV 07/20/24 08:34 85 ml ONCE ONE Administration Metoclopramide HCl 10 mg 07/20/24 06:02 07/20/24 07:06 Metoclopramide Hcl 10 Mg/2 Ml Vial IVPUSH 07/20/24 06:03 10 mg ONCE ONE Administration Discharge Plan Discharge Clinical Impression: Small bowel obstruction Patient Disposition: Admitted As Inpatient Print Language: Slovak
--- NOTE | 2024-07-20 07:15 | PC.NURSE ---
pt is alert and oriented, skin pwd, respirations even and unlabored, pt reports that yesterday started with mid/right abd pain and vomiting, denies diarrhea, hyperactive bowel sounds in all 4 quadrants, abd soft but tender in the mid/right side, pt reports pain at 9/10. vs stable
[2024-07-20 07:44] LABS: Alanine Aminotransferase 15 U/L (0-31); Albumin Level 4.2 g/dL (3.5-5.0); Alkaline Phosphatase 129 U/L (39-117); Aspartate Amino Transferase 19 U/L (5-31); Bilirubin Direct 0.2 mg/dL (0.0-0.5); Bilirubin Total 0.5 mg/dL (0.0-1.0); Total Protein 7.8 g/dL (6.5-8.0)
[2024-07-20] MEDS: Acetaminophen 1,000 MG/100 ML PIGGYBACK 400 MG IV (07:54)
--- NOTE | 2024-07-20 08:20 | PC.NURSE ---
pt reports feeling better pain at 4/10 and nausea has improved-tolerating ice chips
[2024-07-20] MEDS: iohexoL 350 MG/ML 100 ML INFUS..BTL IV (08:38)
[2024-07-20] MEDS: Enoxaparin Sodium 40 MG/0.4 ML SYRINGE SUBCUT (10:48)
[2024-07-20] MEDS: Dextrose 5 % and Lactated Ring 1,000 ML 80 ML IVCONT ×2 (10:48→18:15)
[2024-07-20] MEDS: oxyCODONE HCl Immed Release 5 MG TABLET PO (10:54)
--- NOTE | 2024-07-20 12:43 | PC.NURSE ---
Initial contact with pt as pt is moved to unit. she was able to walk to bed, non slip footwear provided. pt reports no abdominal pain or nausea at this time. oriented to unit, call stafford given. pt aware she is on clear liquid diet.
--- NOTE | 2024-07-20 14:42 | P.CONHOSP_ITS ---
History of Present Illness Data of Consult Service Date: 07/20/24 Primary Care Provider: VON Head A 69-year-old female with a history of hypertension, hypothyroidism, hyperlipidemia, chronic kidney disease (CKD), gastroesophageal reflux disease (GERD), and vertigo presented to the emergency department with nausea, vomiting, lower abdominal pain, and dizziness. A CT scan of the abdomen and pelvis revealed mild dilation of proximal small bowel loops with collapsed distal loops, a finding suggestive of ileus or early small bowel obstruction. The CT also showed a large amount of stool throughout the colon. The patient reports her last bowel movement was two days prior. A urinalysis was positive for a urinary tract infection (UTI), and her white blood cell count was 14,000. She is currently pain-free and has been started on a liquid diet. Review of Systems 2 Review of Systems: Gen: no fever Resp: no sob, no cough CV: no chest, no KING, no leg edema GI: No n/v, no abd pain Neuro: No confusion Yes all other systems are reviewed and are negative [facility] Medical History (Updated 07/20/24 @ 10:25 by VON Nunez) Osteopenia Glaucoma Osteoarthritis CKD (chronic kidney disease) stage 3, GFR 30-59 ml/min Vitamin D deficiency Vitamin B12 deficiency Shoulder pain, left Back pain Anxiety LOC (loss of consciousness) Bilateral leg edema Chest pain Dyspnea RLS (restless legs syndrome) Depression Presence of implantable pulmonary artery pressure and heart rate monitoring system Right knee injury Right shoulder injury Femur fracture, right Femur fracture, left delivery delivered Migraine Restless Kidney disease Heart murmur Overactive bladder Overactive adult syndrome Thyroid disease Hyperlipidemia Hypertension Surgical History (Updated 06/08/24 @ 10:34 by MELISSA Gerard) History of cataract surgery (~05/2024) History of surgery Social History Alcohol intake: never Patient Tobacco Use Status: Never used Tobacco Smoked in Last 30 Days: No Substance Use Type: Marijuana Substance Use Frequency: Occasionally Substance Use Frequency Other:: daphne for pain relief only Last Used Substance: Days (ago) Any prior treatment program specific to substance use: No Advance Directives: Yes Advance Directives on File: Yes Advance Directives Date on File: 09/10/20 Do you have a plan to hurt others: No Plan Meds Allergies Allergy/AdvReac Type Severity Reaction Status Date / Time gluten [GLUTEN] Allergy Unknown UNKNOWN Verified 07/20/24 03:07 mushroom Allergy Unknown UNKNOWN Verified 07/20/24 03:07 Active Medications: Current Medications Acetaminophen (Acetaminophen 325 Mg Tablet) 650 mg PO Q6H PRN PRN Reason: Pain, Mild 1-3,fever,headache Calcium Carbonate (Calcium Carbonate 750 Mg Tab.Chew) 750 mg PO Q4H PRN PRN Reason: Heartburn Enoxaparin Sodium (Enoxaparin Sodium 40 Mg/0.4 Ml Syringe) 40 mg SUBCUT Q24H [facility] Last Admin: 07/20/24 10:48 Dose: 40 mg Hydromorphone HCl (Hydromorphone Hcl 0.5 Mg/0.5 Ml Syringe) 0.5 mg IVPUSH Q3H PRN; Protocol PRN Reason: Pain, Severe (Pain Scale 7-10) Dextrose/Lactated Ringer's (D5lr) 1,000 mls @ 80 mls/hr IVCONT .[id number] [facility] Last Admin: 07/20/24 10:48 Dose: 80 mls/hr Magnesium Hydroxide (Milk Of Magnesia 30 Ml Oral.Susp) 30 ml PO DAILY PRN PRN Reason: Constipation Melatonin (Melatonin 3 Mg Tablet) 6 mg PO BEDTIME PRN PRN Reason: Insomnia Ondansetron HCl (Ondansetron Hcl 4 Mg/2 Ml Vial) 4 mg IVPUSH Q8H PRN PRN Reason: Nausea and Vomiting Oxycodone HCl (Oxycodone Hcl Immed Release 5 Mg Tablet) 5 mg PO Q6H PRN PRN Reason: Pain, Moderate(Pain Scale 4-6) Last Admin: 07/20/24 10:54 Dose: 5 mg Sodium Chloride (0.9 % Sodium Chloride Flush 3 Ml Syringe) 3 ml IVFLUSH QSHIFT [facility] Home Medications ?Medication ?Instructions ?Recorded ?Confirmed ?Last Taken ?Type atorvastatin 20 mg tablet 20 mg PO DAILY 08/22/21 07/20/24 07/19/24 History cyclobenzaprine 10 mg tablet 10 mg PO BID PRN Muscle Spasm 08/22/21 07/20/24 Unknown History levothyroxine 75 mcg tablet 75 mcg PO DAILY@0600 08/22/21 07/20/24 07/19/24 History metoprolol succinate 100 mg 100 mg PO DAILY 08/22/21 07/20/24 07/19/24 History tablet,extended release 24 hr omeprazole 20 mg capsule,delayed 20 mg PO DAILY@0630 08/22/21 07/20/24 07/19/24 History release ropinirole 0.25 mg tablet 0.25 mg PO BID 08/22/21 07/20/24 07/19/24 History meclizine 25 mg tablet 25 mg PO TID PRN Dizziness 04/07/23 07/20/24 05/01/24 06:00 History ondansetron 4 mg disintegrating 4 mg PO Q8-10H PRN Nausea 04/07/23 07/20/24 05/01/24 06:00 History tablet amlodipine 10 mg tablet 10 mg PO DAILY 04/26/24 07/20/24 07/19/24 History ascorbic acid (vitamin C) 250 mg 250 mg PO DAILY 04/26/24 07/20/24 07/19/24 History tablet aspirin 81 mg tablet,delayed 81 mg PO DAILY 04/26/24 07/20/24 07/19/24 History release cholecalciferol (vitamin D3) 10 10 mcg PO DAILY 04/26/24 07/20/24 07/19/24 History mcg (400 unit) tablet cyanocobalamin (vitamin B-12) 1,000 mcg PO DAILY 04/26/24 07/20/24 07/19/24 History 1,000 mcg tablet lidocaine 5 % topical patch 1 patch topical DAILY PRN Pain 04/26/24 07/20/24 Unknown History multivitamin 1 tab PO DAILY 04/26/24 07/20/24 07/19/24 History tolterodine 4 mg capsule,extended 4 mg PO DAILY 04/26/24 07/20/24 07/19/24 History release 24 hr zonisamide 100 mg capsule 100 mg PO BID PRN Nausea 04/26/24 07/20/24 Unknown History spironolactone 50 mg tablet 50 mg PO DAILY 06/08/24 07/20/24 07/19/24 History bupropion HCl 150 mg 24 hr tablet, 150 mg PO DAILY 07/20/24 07/20/24 07/19/24 History extended release dorzolamide 22.3 mg-timolol 6.8 1 drp ophthalmic-Left Q12H 07/20/24 07/20/24 07/19/24 History mg/mL eye drops prazosin 1 mg capsule 1 - 2 mg PO BEDTIME PRN Sleep 07/20/24 07/20/24 07/19/24 History Physical Exam 2 Vital Signs and Narrative: Vital Signs: Last Vital Signs Temp 97.8 F 07/20/24 12:46 Pulse 58 07/20/24 12:46 Resp 18 07/20/24 12:46 BP 126/61 07/20/24 12:46 Pulse Ox 96 07/20/24 12:46 O2 Del Method Room Air 07/20/24 12:46 BMI result Body Mass Index 31.1 Const: Other: General: AO X 3, no acute distress Resp: CTA bilateral CVS: S1,S2,RRR GI: decreased BS, NT, no distention Skin: No rash Neuro: motor grossly intact Psych: appropriate affect Results Labs 07/20/24 03:27 07/20/24 03:27 Labs: Laboratory Results - last 24 hr 07/20/24 07/20/24 07/20/24 03:27 03:54 06:01 MCV 91.4 MCH 30.6 MCHC 33.5 RDW 13.2 Plt Count 192 MPV 10.5 Immature Gran % (Auto) 0.6 H Neut % (Auto) 83.1 H Lymph % (Auto) 8.5 L [place] % (Auto) 5.3 Eos % (Auto) 1.9 Baso % (Auto) 0.6 Lymph # (Auto) 1.2 [place] # (Auto) 0.8 Eos # (Auto) 0.3 Baso # (Auto) 0.1 Abs Immat Gran (auto) 0.08 H Absolute Neuts (auto) 11.9 H Absolute Nucleated RBC 0.000 Nucleated RBC % (auto) 0.0 Anion Gap 15 Estim Creat Clear Calc 40.1 Estimated GFR 37 Random Glucose 113 Calcium 9.5 Total Bilirubin 0.5 Direct Bilirubin 0.2 AST 19 ALT 15 Alkaline Phosphatase 129 H Total Protein 7.8 Albumin 4.2 Urine Color Yellow Urine Appearance Clear Urine pH 6.0 Ur Specific [place] 1.015 Urine Protein Negative Urine Glucose (UA) Negative Urine Ketones Negative Urine Blood Negative Urine Nitrite Negative Ur Leukocyte Esterase Large (3+) H Urine RBC 0-2 Urine WBC 21-50 H Ur Squamous Epith Cells 3-5 Urine Bacteria 1+ Hyaline Casts 0-2 Influenza Type A (PCR) NEGATIVE Influenza Type B (PCR) NEGATIVE RSV RNA Qual (PCR) NEGATIVE SARS-CoV-2 RNA (RT-PCR) NEGATIVE Imaging Radiologist's Impressions: Impressions Abdomen/Pelvis CT 07/20/24 08:28 IMPRESSION: 1. Mild dilatation of proximal small bowel loops with collapsed distal loops. Findings may represent ileus or early small bowel obstruction. 2. Large amount of stool throughout the colon. 3. Fibroid uterus. Possible fluid within a distended endometrial canal. Nonemergent pelvic ultrasound is recommended. Electronically signed by: Jose Juan Brian MD 07/20/2024 09:07 AM [facility] Assessment and Plan (1) Hypertension: Status: Acute (2) Small bowel obstruction: Status: Acute (3) CKD (chronic kidney disease): Status: Acute Plan 69-year-old female the history of hypertension, hypothyroidism, hyperlipidemia, CKD, GERD and vertigo who presented to the ED with nausea, vomitting and lower abdominal pain, dizziness. Has UTI and SB SBO--for now being conservatively managed by surgery If surgery warranted, would recommend routine ECG, otherwise no further testing indicated at this time UTI--treat with ceftriaxone Dizziness--likely related to above and seems to resolved HTN resume home meds once confirmed HLD statin Hypothyroidism continue levothyroxine Lovenox for DVT prophylaxis Will follow
[2024-07-20] MEDS: cefTRIAXone sodium 1 GM VIAL IVPUSH (15:10)
--- NOTE | 2024-07-20 15:16 | PHA.MEDREC ---
Addendum entered by Delma Hayden RPh 07/20/24 16:01: med rec reviewed by [facility] Original Note: Pharmacy Consult ? Medication Reconciliation Pharmacy has completed the medication reconciliation. Spoke to patient to confirm med list. Patient had all her medication bottles with her. Utilized claim and patients bottles to confirm med list. Patient states she last took her medications yesterday.
--- NOTE | 2024-07-20 16:18 | PM.HPGS ---
History of Present Illness History of Present Illness Date of Service: 07/20/24 Chief complaint: partial small bowel obstruction Narrative: Lauren Lemos is a 69 year old female with a past history of hypertension presenting with complaints of abdominal pain, nausea and vomiting since yesterday. She reports a prior history of a small-bowel obstruction approximately 2 years ago treated at [facility] which resolved non operatively. She reports the pain started after eating dinner at around 06:00 o'clock and was associated with the nausea and vomiting. She reports 2 prior sections and a previous surgery for small-bowel obstruction. She presented to the emergency department and was noted to have a soft abdomen. CT abdomen and pelvis does reveal dilated proximal small bowel loops with decompressed distal small bowel loops suggestive of a partial small-bowel obstruction. She was admitted to the surgical service for further management of this partial small-bowel obstruction. Review of Systems Review of Systems: Yes all other systems are reviewed and are negative Constitutional: Constitutional: Denies chills, Denies fever(s), Denies headache(s), Denies poor appetite and Denies weakness ENT: Denies headache(s) Cardiovascular: Cardiovascular: Denies chest pain, Denies irregular heart rhythm, Denies palpitations and Denies dyspnea Respiratory: Respiratory: Denies cough, Denies excessive phlegm production and Denies dyspnea Gastrointestinal: Gastrointestinal: Reports abdominal pain, Denies bloating, Denies change in bowel habits, Reports constipation, Denies heartburn, Denies diarrhea, Reports nausea and Reports vomiting Genitourinary: Genitourinary: Denies urinary frequency Musculoskeletal: Musculoskeletal: Denies back pain, Denies muscle weakness and Denies numbness Integumentary/Breasts: Skin/Breast: Denies changing lesions and Denies unusual bruising Neurologic: Denies headache(s), Denies numbness, Denies paresthesias and Denies weakness Psychiatric: Psychiatric: Denies anxiety and Denies depression Endocrine: Endocrine: Denies palpitations Hematologic/Lymphatic: Hematologic/Lymphatic: Denies lymphadenopathy [facility] Past Medical History Medical History (Updated 07/20/24 @ 10:25 by VON Nunez) Osteopenia Glaucoma Osteoarthritis CKD (chronic kidney disease) stage 3, GFR 30-59 ml/min Vitamin D deficiency Vitamin B12 deficiency Shoulder pain, left Back pain Anxiety LOC (loss of consciousness) Bilateral leg edema Chest pain Dyspnea RLS (restless legs syndrome) Depression Presence of implantable pulmonary artery pressure and heart rate monitoring system Right knee injury Right shoulder injury Femur fracture, right Femur fracture, left delivery delivered Migraine Restless Kidney disease Heart murmur Overactive bladder Overactive adult syndrome Thyroid disease Hyperlipidemia Hypertension Surgical History Surgical History (Updated 06/08/24 @ 10:34 by MELISSA Gerard) History of cataract surgery (~05/2024) History of surgery Social History Social History Alcohol intake: never Patient Tobacco Use Status: Never used Tobacco Smoked in Last 30 Days: No Substance Use Type: Marijuana Substance Use Frequency: Occasionally Substance Use Frequency Other:: daphne for pain relief only Last Used Substance: Days (ago) Any prior treatment program specific to substance use: No Advance Directives: Yes Advance Directives on File: Yes Advance Directives Date on File: 09/10/20 Do you have a plan to hurt others: No Plan Meds Allergies Allergy/AdvReac Type Severity Reaction Status Date / Time gluten [GLUTEN] Allergy Unknown UNKNOWN Verified 07/20/24 03:07 mushroom Allergy Unknown UNKNOWN Verified 07/20/24 03:07 Active Medications: Current Medications Acetaminophen (Acetaminophen 325 Mg Tablet) 650 mg PO Q6H PRN PRN Reason: Pain, Mild 1-3,fever,headache Calcium Carbonate (Calcium Carbonate 750 Mg Tab.Chew) 750 mg PO Q4H PRN PRN Reason: Heartburn Ceftriaxone Sodium (Ceftriaxone Sodium 1 Gm Vial) 1 gm IVPUSH Q24H [facility] Last Admin: 07/20/24 15:10 Dose: 1 gm Enoxaparin Sodium (Enoxaparin Sodium 40 Mg/0.4 Ml Syringe) 40 mg SUBCUT Q24H [facility] Last Admin: 07/20/24 10:48 Dose: 40 mg Hydromorphone HCl (Hydromorphone Hcl 0.5 Mg/0.5 Ml Syringe) 0.5 mg IVPUSH Q3H PRN; Protocol PRN Reason: Pain, Severe (Pain Scale 7-10) Dextrose/Lactated Ringer's (D5lr) 1,000 mls @ 80 mls/hr IVCONT .[id number] [facility] Last Admin: 07/20/24 10:48 Dose: 80 mls/hr Magnesium Hydroxide (Milk Of Magnesia 30 Ml Oral.Susp) 30 ml PO DAILY PRN PRN Reason: Constipation Melatonin (Melatonin 3 Mg Tablet) 6 mg PO BEDTIME PRN PRN Reason: Insomnia Ondansetron HCl (Ondansetron Hcl 4 Mg/2 Ml Vial) 4 mg IVPUSH Q8H PRN PRN Reason: Nausea and Vomiting Oxycodone HCl (Oxycodone Hcl Immed Release 5 Mg Tablet) 5 mg PO Q6H PRN PRN Reason: Pain, Moderate(Pain Scale 4-6) Last Admin: 07/20/24 10:54 Dose: 5 mg Sodium Chloride (0.9 % Sodium Chloride Flush 3 Ml [facility]ringe) [facility] Last Admin: 07/20/24 15:01 Dose: Not Given Home Medications ?Medication ?Instructions ?Recorded ?Confirmed ?Last Taken ?Type atorvastatin 20 mg tablet 20 mg PO DAILY 08/22/21 07/20/24 07/19/24 History cyclobenzaprine 10 mg tablet 10 mg PO BID PRN Muscle Spasm 08/22/21 07/20/24 Unknown History levothyroxine 75 mcg tablet 75 mcg PO DAILY@0600 08/22/21 07/20/24 07/19/24 History metoprolol succinate 100 mg 100 mg PO DAILY 08/22/21 07/20/24 07/19/24 History tablet,extended release 24 hr omeprazole 20 mg capsule,delayed 20 mg PO DAILY@0630 08/22/21 07/20/24 07/19/24 History release ropinirole 0.25 mg tablet 0.25 mg PO BID 08/22/21 07/20/24 07/19/24 History meclizine 25 mg tablet 25 mg PO TID PRN Dizziness 04/07/23 07/20/24 05/01/24 06:00 History ondansetron 4 mg disintegrating 4 mg PO Q8-10H PRN Nausea 04/07/23 07/20/24 05/01/24 06:00 History tablet amlodipine 10 mg tablet 10 mg PO DAILY 04/26/24 07/20/24 07/19/24 History ascorbic acid (vitamin C) 250 mg 250 mg PO DAILY 04/26/24 07/20/24 07/19/24 History tablet aspirin 81 mg tablet,delayed 81 mg PO DAILY 04/26/24 07/20/24 07/19/24 History release cholecalciferol (vitamin D3) 10 10 mcg PO DAILY 04/26/24 07/20/24 07/19/24 History mcg (400 unit) tablet cyanocobalamin (vitamin B-12) 1,000 mcg PO DAILY 04/26/24 07/20/24 07/19/24 History 1,000 mcg tablet lidocaine 5 % topical patch 1 patch topical DAILY PRN Pain 04/26/24 07/20/24 Unknown History multivitamin 1 tab PO DAILY 04/26/24 07/20/24 07/19/24 History tolterodine 4 mg capsule,extended 4 mg PO DAILY 04/26/24 07/20/24 07/19/24 History release 24 hr zonisamide 100 mg capsule 100 mg PO BID PRN Nausea 04/26/24 07/20/24 Unknown History spironolactone 50 mg tablet 50 mg PO DAILY 06/08/24 07/20/24 07/19/24 History bupropion HCl 150 mg 24 hr tablet, 150 mg PO DAILY 07/20/24 07/20/24 07/19/24 History extended release dorzolamide 22.3 mg-timolol 6.8 1 drp ophthalmic-Left Q12H 07/20/24 07/20/24 07/19/24 History mg/mL eye drops prazosin 1 mg capsule 1 - 2 mg PO BEDTIME PRN Sleep 07/20/24 07/20/24 07/19/24 History Physical Exam Vital Signs: Vital Signs: Last Vital Signs Temp 97.8 F 07/20/24 12:46 Pulse 58 07/20/24 12:46 Resp 18 07/20/24 12:46 BP 126/61 07/20/24 12:46 Pulse Ox 96 07/20/24 12:46 O2 Del Method Room Air 07/20/24 12:46 BMI result Body Mass Index 31.1 Const: General: cooperative and no acute distress Nutritional Appearance: well nourished Orientation/consciousness: patient oriented x3 Limitations: no limitations HEENT: Head: Yes normocephalic and Yes atraumatic Ears: hearing grossly normal bilaterally Resp: Effort & Inspection: normal respiratory effort, no audible wheezes, no cough and no respiratory distress Cardio: Jugular venous distension: no JVD GI: Inspection: Yes normal to inspection, Yes distended, Yes incision and Yes Abdominal panniculus present Palpation (GI): Soft to palpation, nontender, no guarding and not rigid Percussion: Yes normal to percussion Auscultation: normal bowel sounds Rectal Exam - Female: deferred Skin: Other: Warm, dry, no rash Neuro: General: patient oriented x3 Extrem: General: Yes no clubbing, cyanosis or edema Results Results Labs: Short CBC 07/20/24 Range/Units 03:27 WBC 14.3 H (4.8-10.8) X10*3/uL Hgb 14.2 (12.0-16.0) g/dl Hct 42.4 (37.0-47.0) % Plt Count 192 (160-400) X10*3/uL BMP 07/20/24 03:27 Sodium 141 Potassium 4.7 D Chloride 109 H Carbon Dioxide 22 BUN 29 H Creatinine 1.41 H Calcium 9.5 Liver Function 07/20/24 Range/Units 03:27 Total Bilirubin 0.5 (0.0-1.0) mg/dL Direct Bilirubin 0.2 (0.0-0.5) mg/dL AST 19 (5-31) U/L ALT 15 (0-31) U/L Alkaline Phosphatase 129 H (39-117) U/L Albumin 4.2 (3.5-5.0) g/dL Urine 07/20/24 Range/Units 06:01 Urine Color Yellow Urine Appearance Clear Urine pH 6.0 (5.0-9.0) Ur Specific [place] 1.015 (1.005-1.025) Urine Protein Negative (Neg-Trace) mg/dL Urine Glucose (UA) Negative (Negative) mg/dL Assessment and Plan (1) Small bowel obstruction: Status: Acute Plan 69-year-old female patient with a prior history of small-bowel obstructions and prior sections now presenting with complaints of abdominal pain, nausea and vomiting. CT findings are consistent with a partial small-bowel obstruction. On examination the patient is soft and nondistended without significant tenderness at this time. Patient will be admitted for IV hydration and observation. She will be started on clear liquids and advanced as tolerated. She expressed understanding and agrees with the plan. Quality Stroke Does the patient have a stroke diagnosis?: No VTE Prior VTE?: No VTE Risk Level:: Surgical - moderate VTE Device Contraindication: N/A - Device Ordered VTE Drug Contraindication: N/A - Med Ordered Procedures Date of Service Date of Service: 07/20/24
[2024-07-20] MEDS: ondansetron HCL 4 MG/2 ML VIAL IVPUSH (17:15)
[2024-07-20] MEDS: Zonisamide 100 MG CAPSULE PO (20:41)
[2024-07-20] MEDS: rOPINIRole HCL 0.25 MG TABLET PO (20:41)
[2024-07-21] MEDS: Omeprazole 20 MG CAPSULE.DR PO (05:30)
[2024-07-21] MEDS: Levothyroxine Sodium 75 MCG TABLET PO (05:30)
[2024-07-21] MEDS: Dorzolamide/Timolo 2.23%/0.68% 10 ML DRBTL 1 DROP EYE-LEFT ×2 (05:30→17:24)
[2024-07-21 06:00] VITALS: BP 139/63; PULSE 64; RESP 18; TEMP 37; O2SAT 96
--- NOTE | 2024-07-21 06:57 | P.PNGS_ITS ---
Subjective Subjective Date of Service: 07/21/24 <[facility] - Last Filed: 07/21/24 07:04> 07/21/24 <Tia Bhatt PA-C - Last Filed: 07/21/24 07:46> 07/21/24 <Guillermo Herndon MD - Last Filed: 07/21/24 08:41> Interval history: Patient seen and examined this morning. States she is feeling better. Had diarrhea last night. Denies nausea, vomiting, and abdominal pain. Denies chest pain and shortness of breath. <[facility] - Last Filed: 07/21/24 07:04> Physical Exam 2 Vital Signs: Vital Signs: Last Vital Signs Temp 98.6 F 07/21/24 06:00 Pulse 64 07/21/24 06:00 Resp 18 07/21/24 06:00 BP 139/63 07/21/24 06:00 Pulse Ox 96 07/21/24 06:00 O2 Del Method Room Air 07/21/24 06:00 BMI result Body Mass Index 34.9 <[facility] - Last Filed: 07/21/24 07:04> Const: Other: Laying in bed, awake, calm, in no acute distress. <[facility] - Last Filed: 07/21/24 07:04> Resp: Effort & Inspection: normal respiratory effort and able to speak in complete sentences <[facility] - Last Filed: 07/21/24 07:04> Cardio: Other: Regular rate and rhythm <[facility] - Last Filed: 07/21/24 07:04> GI: Other: Abdomen is soft and non tender. No guarding, non distended. <[facility] - Last Filed: 07/21/24 07:04> Skin: General skin exam: no rashes or lesions noted <Tia Bhatt PA-C - Last Filed: 07/21/24 07:46> Extrem: Other: Moving all extremities normally, no lower extremity edema noted. <[facility] - Last Filed: 07/21/24 07:04> Objective Data Active Medications Acetaminophen (Acetaminophen 325 Mg Tablet) 650 mg PO Q6H PRN PRN Reason: Pain, Mild 1-3,fever,headache Albuterol Sulfate (Albuterol Sulfate 90 Mcg 8 Gm Inhaler) 2 puff INHALE Q4H PRN PRN Reason: shortness of breath or wheezing Amlodipine Besylate (Amlodipine Besylate 10 Mg Tablet) 10 mg PO DAILY [facility]; Protocol Ascorbic Acid (Ascorbic Acid 250 Mg Tablet) 250 mg PO DAILY [facility] Aspirin (Aspirin Enteric Coated 81 Mg Tablet.Dr) 81 mg PO DAILY [facility] Atorvastatin Calcium (Atorvastatin Calcium 20 Mg Tablet) 20 mg PO DAILY [facility] Bupropion HCl (Bupropion Hcl Xl 150 Mg Tab.Er.24h) 150 mg PO DAILY [facility] Calcium Carbonate (Calcium Carbonate 750 Mg Tab.Chew) 750 mg PO Q4H PRN PRN Reason: Heartburn Ceftriaxone Sodium (Ceftriaxone Sodium 1 Gm Vial) 1 gm IVPUSH Q24H [facility] Last Admin: 07/20/24 15:10 Dose: 1 gm Documented By: JACKIE Cyanocobalamin (Cyanocobalamin (Vitamin B-12) 1,000 Mcg Tablet) 1,000 mcg PO DAILY [facility] Cyclobenzaprine HCl (Cyclobenzaprine Hcl 10 Mg Tablet) 10 mg PO BID PRN PRN Reason: Muscle Spasm Dorzolamide/Timolol (Dorzolamide/Timolo 2.23%/0.68% 10 Ml Drbtl) 1 drop EYE- LEFT Q12H [facility] Last Admin: 07/21/24 05:30 Dose: 1 drop Documented By: ANNAMARIA Enoxaparin Sodium (Enoxaparin Sodium 40 Mg/0.4 Ml Syringe) 40 mg SUBCUT Q24H [facility] Last Admin: 07/20/24 10:48 Dose: 40 mg Documented By: ISABEL Hydromorphone HCl (Hydromorphone Hcl 0.5 Mg/0.5 Ml Syringe) 0.5 mg IVPUSH Q3H PRN; Protocol PRN Reason: Pain, Severe (Pain Scale 7-10) Dextrose/Lactated Ringer's (D5lr) 1,000 mls @ 80 mls/hr IVCONT .[id number] [facility] Last Infusion: 07/21/24 02:18 Dose: Infused Documented By: ANNAMARIA Levothyroxine Sodium (Levothyroxine Sodium 75 Mcg Tablet) 75 mcg PO DAILY@0600 [facility] Last Admin: 07/21/24 05:30 Dose: 75 mcg Documented By: ANNAMARIA Lidocaine (Lidocaine 4 % Patch Adh..Patch) 1 patch TRANSDERMA DAILY PRN PRN Reason: Pain Magnesium Hydroxide (Milk Of Magnesia 30 Ml Oral.Susp) 30 ml PO DAILY PRN PRN Reason: Constipation Meclizine HCl (Meclizine Hcl 25 Mg Tablet) 25 mg PO TID PRN PRN Reason: Dizziness Melatonin (Melatonin 3 Mg Tablet) 6 mg PO BEDTIME PRN PRN Reason: Insomnia Metoprolol Succinate (Metoprolol Succinate Er 100 Mg Tab.Er.24h) 100 mg PO DAILY [facility]; Protocol Multivitamins/Vitamin C (Multivitamin Tablet) 1 tab PO DAILY [facility] Omeprazole (Omeprazole 20 Mg Capsule.Dr) 20 mg PO DAILY@0630 [facility] Last Admin: 07/21/24 05:30 Dose: 20 mg Documented By: ANNAMARIA Ondansetron HCl (Ondansetron Hcl 4 Mg/2 Ml Vial) 4 mg IVPUSH Q8H PRN PRN Reason: Nausea and Vomiting Last Admin: 07/20/24 17:15 Dose: 4 mg Documented By: YENNY Oxycodone HCl (Oxycodone Hcl Immed Release 5 Mg Tablet) 5 mg PO Q6H PRN PRN Reason: Pain, Moderate(Pain Scale 4-6) Last Admin: 07/20/24 10:54 Dose: 5 mg Documented By: ISABEL Prazosin HCl (Prazosin Hcl 1 Mg Capsule) 1 mg PO BEDTIME MRX1 PRN; Protocol PRN Reason: Sleep Ropinirole HCl (Ropinirole Hcl 0.25 Mg Tablet) 0.25 mg PO BID [facility] Last Admin: 07/20/24 20:41 Dose: 0.25 mg Documented By: ANNAMARIA Sodium Chloride (0.9 % Sodium Chloride Flush 3 Ml Syringe) 3 ml IVFLUSH QSHIFT [facility] Last Admin: 07/20/24 23:12 Dose: Not Given Documented By: ANNAMARIA Non-Admin Reason: IV Running Spironolactone (Spironolactone 25 Mg Tablet) 50 mg PO DAILY [facility]; Protocol Tolterodine Tartrate (Tolterodine Tartrate La 4 Mg Cap.Er.24h) 4 mg PO DAILY [facility] Vitamin D (Cholecalciferol (Vitamin D3) 10 Mcg Tablet) 10 mcg PO DAILY [facility] Zonisamide (Zonisamide 100 Mg Capsule) 100 mg PO BID PRN PRN Reason: Nausea Last Admin: 07/20/24 20:41 Dose: 100 mg Documented By: ANNAMARIA <[facility] - Last Filed: 07/21/24 07:04> Labs CBC & Chem 7: 07/21/24 05:29 07/21/24 05:29 <[facility] - Last Filed: 07/21/24 07:04> Labs: Laboratory Results - last 24 hr 07/20/24 07/20/24 03:27 06:01 Total Bilirubin 0.5 Direct Bilirubin 0.2 AST 19 ALT 15 Alkaline Phosphatase 129 H Total Protein 7.8 Albumin 4.2 Urine Color Yellow Urine Appearance Clear Urine pH 6.0 Ur Specific [place] 1.015 Urine Protein Negative Urine Glucose (UA) Negative Urine Ketones Negative Urine Blood Negative Urine Nitrite Negative Ur Leukocyte Esterase Large (3+) H Urine RBC 0-2 Urine WBC 21-50 H Ur Squamous Epith Cells 3-5 Urine Bacteria 1+ Hyaline Casts 0-2 <[facility] - Last Filed: 07/21/24 07:04> Procedures Date of Service Date of Service: 07/21/24 <[facility] - Last Filed: 07/21/24 07:04> 07/21/24 <Tia Bhatt PA-C - Last Filed: 07/21/24 07:46> 07/21/24 <Guillermo Herndon MD - Last Filed: 07/21/24 08:41> Progress Note: A&P Assessment and plan (1) Small bowel obstruction: Status: Acute <[facility] - Last Filed: 07/21/24 07:04> Assessment and Plan: Patient is doing well this morning. Symptoms seemed to have resolved. Had diarrhea last night. Abdominal exam benign. continue IVF for now. Continue Ceftriaxone for now. Continue current diet. Will continue to monitor patient. Will review labs. <[facility] - Last Filed: 07/21/24 07:04> Patient is doing well this morning. Symptoms seemed to have resolved. Had diarrhea last night. Abdominal exam benign. continue IVF for now. Continue Ceftriaxone for now. Continue current diet. Will continue to monitor patient. Will review labs. Agree with above assessment. Patient with resolution of symptoms and two large BMs last night. Tolerating liquids, feels hungry. Abd very benign. Will advance to solid diet. Reassess later today, if tolerating diet without symptoms, stable for dc to home. Patient comfortable with plan. <Tia Bhatt PA-C - Last Filed: 07/21/24 07:46> Patient is doing well this morning. Symptoms seemed to have resolved. Had diarrhea last night. Abdominal exam benign. continue IVF for now. Continue Ceftriaxone for now. Continue current diet. Will continue to monitor patient. Will review labs. Agree with above assessment. Patient with resolution of symptoms and two large BMs last night. Tolerating liquids, feels hungry. Abd very benign. Will advance to solid diet. Reassess later today, if tolerating diet without symptoms, stable for dc to home. Patient comfortable with plan. Agree with the above assessment. Small-bowel obstruction appears to have resolved as she was passed several large bowel movements. Agree with advancing diet today, discharge to home if tolerated. <Guillermo Herndon MD - Last Filed: 07/21/24 08:41> Time Spent With Patient Time: Total time managing care of this patient today ____ minutes. <[facility] - Last Filed: 07/21/24 07:04> Quality Stroke Does the patient have a stroke diagnosis?: No <[facility] - Last Filed: 07/21/24 07:04> VTE Prior VTE?: No <[facility] - Last Filed: 07/21/24 07:04> VTE Risk Level:: Surgical - moderate <[facility] - Last Filed: 07/21/24 07:04> VTE Device Contraindication: N/A - Device Ordered <[facility] - Last Filed: 07/21/24 07:04> VTE Drug Contraindication: N/A - Med Ordered <Tomasa Brett - Last Filed: 07/21/24 07:04>
[2024-07-21 07:02] LABS: MANUAL DIFF FLAG NO
[2024-07-21 07:15] LABS: Basophils Absolute Auto 0.1 X10*3/uL (0.0-0.2); Basophils Percent Auto 0.6 % (0-2); Eosinophils Absolute Auto 0.5 X10*3/uL (0.0-0.4); Hematocrit 38.1 % (37.0-47.0); Hemoglobin 12.1 g/dl (12.0-16.0); Imm Gran Abs Auto 0.06 X10*3/uL (0.00-0.03); Imm Gran Pct Auto 0.5 % (0.0-0.4); Lymphocytes Absolute Auto 1.3 X10*3/uL (1.2-4.9); Lymphocytes Percent Auto 11.4 % (20-40); Mean Corpuscular HGB Conc 31.8 g/dl (31.0-35.0); Mean Corpuscular Volume 94.5 fL (80.0-98.0); Mean Platelet Volume 11.7 fL (9.4-12.3); Monocytes Absolute Auto 0.8 X10*3/uL (0.1-1.2); Monocytes Percent Auto 6.8 % (2-11); Neutrophils Absolute Auto 8.6 x10*3/uL (2.0-8.3); Neutrophils Percent Auto 76.7 % (45-73); Platelet Count 170 X10*3/uL (160-400); Red Blood Count 4.03 X10*6/uL (4.20-5.50); Red Cell Distribution Width 13.2 % (11.0-16.0); White Blood Count 11.3 X10*3/uL (4.8-10.8)
[2024-07-21 07:39] LABS: Anion Gap 11 (12-20); Blood Urea Nitrogen 17 mg/dL (9-16); Carbon Dioxide 18 mmol/L (22-29); Chloride 114 mmol/L (96-108); Creatinine Clr Calc Pharmacy 66.7; Estimated Glomerular Filt Rate > 60; Glucose Random 86 mg/dL (60-115); Potassium 3.9 mmol/L (3.3-5.1); Sodium 139 mmol/L (135-145)
[2024-07-21 07:54] LABS: Calcium 8.1 mg/dL (8.4-10.2)
[2024-07-21 08:00] VITALS: BP 146/67; PULSE 64; RESP 16; TEMP 36.4; O2SAT 95
[2024-07-21] MEDS: Spironolactone 25 MG TABLET 50 MG PO (08:28)
[2024-07-21] MEDS: Atorvastatin Calcium 20 MG TABLET PO (08:28)
[2024-07-21] MEDS: buPROPion HCl XL 150 MG TAB.ER.24H PO (08:29)
[2024-07-21] MEDS: Tolterodine Tartrate LA 4 MG CAP.ER.24H PO (08:29)
[2024-07-21] MEDS: rOPINIRole HCL 0.25 MG TABLET PO ×2 (08:29→20:28)
[2024-07-21] MEDS: Cholecalciferol (Vitamin D3) 10 MCG TABLET PO (08:29)
[2024-07-21] MEDS: Ascorbic Acid 250 MG TABLET PO (08:29)
[2024-07-21] MEDS: amLODIPine Besylate 10 MG TABLET PO (08:29)
[2024-07-21] MEDS: Multivitamin TABLET 1 TAB PO (08:30)
[2024-07-21] MEDS: Aspirin Enteric Coated 81 MG TABLET.DR PO (08:30)
[2024-07-21] MEDS: Cyanocobalamin (Vitamin B-12) 1,000 MCG TABLET 1000 MCG PO (08:30)
[2024-07-21] MEDS: Metoprolol Succinate ER 100 MG TAB.ER.24H PO (08:30)
--- NOTE | 2024-07-21 09:55 | MHC.CM.PN ---
IMM 07/21. Pt self-care, lives at home with her . Pt will need assistance with transportation home at discharge. HCP on file, however, pt requested to complete a new one, new HCP now on file. PCP: Carlos LONGORIA
--- NOTE | 2024-07-21 10:44 | P.PNIM_ITS ---
Subjective Subjective Date of Service: 07/21/24 Interval History: f/u on med consult for pt with sbo had a large BM, no abd pain Physical Exam 2 Vital Signs: Vital Signs: Last Vital Signs Temp 97.6 F 07/21/24 08:00 Pulse 64 07/21/24 08:00 Resp 16 07/21/24 08:00 BP 146/67 H 07/21/24 08:00 Pulse Ox 95 07/21/24 08:00 O2 Del Method Room Air 07/21/24 08:00 BMI result Body Mass Index 34.9 Const: Other: General: AO X 3, no acute distress Resp: CTA bilateral CVS: S1,S2,RRR GI: +BS, NT, no distention Skin: No rash Neuro: motor grossly intact Psych: appropriate affect Objective Data Active Medications Acetaminophen (Acetaminophen 325 Mg Tablet) 650 mg PO Q6H PRN PRN Reason: Pain, Mild 1-3,fever,headache Albuterol Sulfate (Albuterol Sulfate 90 Mcg 8 Gm Inhaler) 2 puff INHALE Q4H PRN PRN Reason: shortness of breath or wheezing Amlodipine Besylate (Amlodipine Besylate 10 Mg Tablet) 10 mg PO DAILY [facility]; Protocol Last Admin: 07/21/24 08:29 Dose: 10 mg Documented By: RILEY Ascorbic Acid (Ascorbic Acid 250 Mg Tablet) 250 mg PO DAILY [facility] Last Admin: 07/21/24 08:29 Dose: 250 mg Documented By: RILEY Aspirin (Aspirin Enteric Coated 81 Mg Tablet.Dr) 81 mg PO DAILY [facility] Last Admin: 07/21/24 08:30 Dose: 81 mg Documented By: RILEY Atorvastatin Calcium (Atorvastatin Calcium 20 Mg Tablet) 20 mg PO DAILY [facility] Last Admin: 07/21/24 08:28 Dose: 20 mg Documented By: RILEY Bupropion HCl (Bupropion Hcl Xl 150 Mg Tab.Er.24h) 150 mg PO DAILY [facility] Last Admin: 07/21/24 08:29 Dose: 150 mg Documented By: RILEY Calcium Carbonate (Calcium Carbonate 750 Mg Tab.Chew) 750 mg PO Q4H PRN PRN Reason: Heartburn Ceftriaxone Sodium (Ceftriaxone Sodium 1 Gm Vial) 1 gm IVPUSH Q24H [facility] Last Admin: 07/20/24 15:10 Dose: 1 gm Documented By: JACKIE Cyanocobalamin (Cyanocobalamin (Vitamin B-12) 1,000 Mcg Tablet) 1,000 mcg PO DAILY [facility] Last Admin: 07/21/24 08:30 Dose: 1,000 mcg Documented By: RILEY Cyclobenzaprine HCl (Cyclobenzaprine Hcl 10 Mg Tablet) 10 mg PO BID PRN PRN Reason: Muscle Spasm Dorzolamide/Timolol (Dorzolamide/Timolo 2.23%/0.68% 10 Ml Drbtl) 1 drop EYE- LEFT Q12H [facility] Last Admin: 07/21/24 05:30 Dose: 1 drop Documented By: ANNAMARIA Enoxaparin Sodium (Enoxaparin Sodium 40 Mg/0.4 Ml Syringe) 40 mg SUBCUT Q24H [facility] Last Admin: 07/20/24 10:48 Dose: 40 mg Documented By: ISABEL Hydromorphone HCl (Hydromorphone Hcl 0.5 Mg/0.5 Ml Syringe) 0.5 mg IVPUSH Q3H PRN; Protocol PRN Reason: Pain, Severe (Pain Scale 7-10) Dextrose/Lactated Ringer's (D5lr) 1,000 mls @ 80 mls/hr IVCONT .[id number] [facility] Last Infusion: 07/21/24 02:18 Dose: Infused Documented By: ANNAMARIA Levothyroxine Sodium (Levothyroxine Sodium 75 Mcg Tablet) 75 mcg PO DAILY@0600 [facility] Last Admin: 07/21/24 05:30 Dose: 75 mcg Documented By: ANNAMARIA Lidocaine (Lidocaine 4 % Patch Adh..Patch) 1 patch TRANSDERMA DAILY PRN PRN Reason: Pain Magnesium Hydroxide (Milk Of Magnesia 30 Ml Oral.Susp) 30 ml PO DAILY PRN PRN Reason: Constipation Meclizine HCl (Meclizine Hcl 25 Mg Tablet) 25 mg PO TID PRN PRN Reason: Dizziness Melatonin (Melatonin 3 Mg Tablet) 6 mg PO BEDTIME PRN PRN Reason: Insomnia Metoprolol Succinate (Metoprolol Succinate Er 100 Mg Tab.Er.24h) 100 mg PO DAILY [facility]; Protocol Last Admin: 07/21/24 08:30 Dose: 100 mg Documented By: RILEY Multivitamins/Vitamin C (Multivitamin Tablet) 1 tab PO DAILY [facility] Last Admin: 07/21/24 08:30 Dose: 1 tab Documented By: RILEY Omeprazole (Omeprazole 20 Mg Capsule.Dr) 20 mg PO DAILY@0630 [facility] Last Admin: 07/21/24 05:30 Dose: 20 mg Documented By: ANNAMARIA Ondansetron HCl (Ondansetron Hcl 4 Mg/2 Ml Vial) 4 mg IVPUSH Q8H PRN PRN Reason: Nausea and Vomiting Last Admin: 07/20/24 17:15 Dose: 4 mg Documented By: YENNY Oxycodone HCl (Oxycodone Hcl Immed Release 5 Mg Tablet) 5 mg PO Q6H PRN PRN Reason: Pain, Moderate(Pain Scale 4-6) Last Admin: 07/20/24 10:54 Dose: 5 mg Documented By: ISABEL Prazosin HCl (Prazosin Hcl 1 Mg Capsule) 1 mg PO BEDTIME MRX1 PRN; Protocol PRN Reason: Sleep Ropinirole HCl (Ropinirole Hcl 0.25 Mg Tablet) 0.25 mg PO BID [facility] Last Admin: 07/21/24 08:29 Dose: 0.25 mg Documented By: RILEY Sodium Chloride (0.9 % Sodium Chloride Flush 3 Ml Syringe) 3 ml IVFLUSH QSHIFT [facility] Last Admin: 07/21/24 08:28 Dose: Not Given Documented By: RILEY Non-Admin Reason: IV Running Spironolactone (Spironolactone 25 Mg Tablet) 50 mg PO DAILY [facility]; Protocol Last Admin: 07/21/24 08:28 Dose: 50 mg Documented By: RILEY Tolterodine Tartrate (Tolterodine Tartrate La 4 Mg Cap.Er.24h) 4 mg PO DAILY [facility] Last Admin: 07/21/24 08:29 Dose: 4 mg Documented By: RILEY Vitamin D (Cholecalciferol (Vitamin D3) 10 Mcg Tablet) 10 mcg PO DAILY [facility] Last Admin: 07/21/24 08:29 Dose: 10 mcg Documented By: RILEY Zonisamide (Zonisamide 100 Mg Capsule) 100 mg PO BID PRN PRN Reason: Nausea Last Admin: 07/20/24 20:41 Dose: 100 mg Documented By: ANNAMARIA Labs 07/21/24 05:29 07/21/24 05:29 Labs: Laboratory Results - last 24 hr 07/21/24 05:29 MCV 94.5 MCH 30.0 MCHC 31.8 RDW 13.2 Plt Count 170 MPV 11.7 Immature Gran % (Auto) 0.5 H Neut % (Auto) 76.7 H Lymph % (Auto) 11.4 L [place] % (Auto) 6.8 Eos % (Auto) 4.0 Baso % (Auto) 0.6 Lymph # (Auto) 1.3 [place] # (Auto) 0.8 Eos # (Auto) 0.5 H Baso # (Auto) 0.1 Abs Immat Gran (auto) 0.06 H Absolute Neuts (auto) 8.6 H Absolute Nucleated RBC 0.000 Nucleated RBC % (auto) 0.0 Anion Gap 11 L Estim Creat Clear Calc 66.7 Estimated GFR > 60 Random Glucose 86 Calcium 8.1 L D Assessment and Plan (1) UTI (urinary tract infection): Status: Acute (2) Hypertension: Status: Acute Plan 69-year-old female the history of hypertension, hypothyroidism, hyperlipidemia, CKD, GERD and vertigo who presented to the ED with nausea, vomitting and lower abdominal pain, dizziness. Has UTI and SB SBO--seems clinically resolved further management and diet per surgery UTI--treat with ceftriaxone, change to ceftin 250 bid x 3 days for total 5 upon discharg3 Dizziness--likely related to above and seems to resolved HTN continue home meds norvasc, metoprolol and aldacone HLD statin Hypothyroidism continue levothyroxine Lovenox for DVT prophylaxis Medically stable and will sing off and follow on needed basis Quality Stroke Does the patient have a stroke diagnosis?: No VTE Prior VTE?: No VTE Risk Level:: Surgical - moderate VTE Device Contraindication: N/A - Device Ordered VTE Drug Contraindication: N/A - Med Ordered
[2024-07-21] MEDS: Enoxaparin Sodium 40 MG/0.4 ML SYRINGE SUBCUT ×2 (11:32→20:29)
[2024-07-21 13:18] VITALS: BP 136/62; PULSE 61; RESP 16; TEMP 36.7; O2SAT 96
[2024-07-21] MEDS: 0.9 % Sodium Chloride Flush 3 ML SYRINGE IVFLUSH ×2 (17:14→22:22)
[2024-07-21] MEDS: cefTRIAXone sodium 1 GM VIAL IVPUSH (17:24)
[2024-07-21 19:28] VITALS: BP 117/58; PULSE 59; RESP 18; TEMP 37.4; O2SAT 94
[2024-07-21] MEDS: oxyCODONE HCl Immed Release 5 MG TABLET PO (20:28)
[2024-07-21] MEDS: Zonisamide 100 MG CAPSULE PO (20:35)
[2024-07-22 05:35] VITALS: BP 125/60; PULSE 58; RESP 18; TEMP 36; O2SAT 93
[2024-07-22] MEDS: Omeprazole 20 MG CAPSULE.DR PO (06:01)
[2024-07-22] MEDS: Levothyroxine Sodium 75 MCG TABLET PO (06:01)
[2024-07-22 06:46] VITALS: BP 130/61; PULSE 60; RESP 16; O2SAT 97
--- NOTE | 2024-07-22 07:28 | HO.PM.IMPN ---
Subjective Subjective Date of Service: 07/22/24 Interval History: No new issues, urine culture growing group b stre Physical Exam Vital Signs: Vital Signs: Last Vital Signs Temp 96.8 F 07/22/24 05:35 Pulse 60 07/22/24 06:46 Resp 16 07/22/24 06:46 BP 130/61 07/22/24 06:46 Pulse Ox 97 07/22/24 06:46 O2 Del Method Room Air 07/22/24 06:46 BMI result Body Mass Index 34.9 Const: Other: General: AO X 3, no acute distress Resp: CTA bilateral CVS: S1,S2,RRR GI: +BS, NT, no distention Skin: No rash Neuro: motor grossly intact Psych: appropriate affect Objective Data Active Medications Acetaminophen (Acetaminophen 325 Mg Tablet) 650 mg PO Q6H PRN PRN Reason: Pain, Mild 1-3,fever,headache Albuterol Sulfate (Albuterol Sulfate 90 Mcg 8 Gm Inhaler) 2 puff INHALE Q4H PRN PRN Reason: shortness of breath or wheezing Albuterol Sulfate (Albuterol Sulfate 90 Mcg 8 Gm Inhaler) 2 puff INHALE Q4H PRN PRN Reason: shortness of breath or wheezing Amlodipine Besylate (Amlodipine Besylate 10 Mg Tablet) 10 mg PO DAILY [facility]; Protocol Ascorbic Acid (Ascorbic Acid 250 Mg Tablet) 250 mg PO DAILY [facility] Aspirin (Aspirin Enteric Coated 81 Mg Tablet.Dr) 81 mg PO DAILY [facility] Atorvastatin Calcium (Atorvastatin Calcium 20 Mg Tablet) 20 mg PO DAILY [facility] Bupropion HCl (Bupropion Hcl Xl 150 Mg Tab.Er.24h) 150 mg PO DAILY [facility] Calcium Carbonate (Calcium Carbonate 750 Mg Tab.Chew) 750 mg PO Q4H PRN PRN Reason: Heartburn Ceftriaxone Sodium (Ceftriaxone Sodium 1 Gm Vial) 1 gm IVPUSH Q24H [facility] Cyanocobalamin (Cyanocobalamin (Vitamin B-12) 1,000 Mcg Tablet) 1,000 mcg PO DAILY [facility] Cyclobenzaprine HCl (Cyclobenzaprine Hcl 10 Mg Tablet) 10 mg PO BID PRN PRN Reason: Muscle Spasm Dorzolamide/Timolol (Dorzolamide/Timolo 2.23%/0.68% 10 Ml Drbtl) 1 drop EYE-LEFT Q12H [facility] Last Admin: 07/21/24 20:37 Dose: Not Given Documented By: SHANE Non-Admin Reason: Patient Refused Enoxaparin Sodium (Enoxaparin Sodium 40 Mg/0.4 Ml Syringe) 40 mg SUBCUT Q24H [facility] Last Admin: 07/21/24 20:29 Dose: 40 mg Documented By: SHAEN Hydromorphone HCl (Hydromorphone Hcl 0.5 Mg/0.5 Ml Syringe) 0.5 mg IVPUSH Q3H [facility]N; Protocol PRN Reason: Pain, Severe (Pain Scale 7-10) Levothyroxine Sodium (Levothyroxine Sodium 75 Mcg Tablet) 75 mcg PO DAILY@0600 [facility] Last Admin: 07/22/24 06:01 Dose: 75 mcg Documented By: SHANE Lidocaine (Lidocaine 4 % Patch Adh..Patch) 1 patch TRANSDERMA DAILY PRN PRN Reason: Pain Magnesium Hydroxide (Milk Of Magnesia 30 Ml Oral.Susp) 30 ml PO DAILY PRN PRN Reason: Constipation Meclizine HCl (Meclizine Hcl 25 Mg Tablet) 25 mg PO TID PRN PRN Reason: Dizziness Melatonin (Melatonin 3 Mg Tablet) 6 mg PO BEDTIME PRN PRN Reason: Insomnia Metoprolol Succinate (Metoprolol Succinate Er 100 Mg Tab.Er.24h) 100 mg PO DAILY [facility]; Protocol Multivitamins/Vitamin C (Multivitamin Tablet) 1 tab PO DAILY [facility] Omeprazole (Omeprazole 20 Mg Capsule.Dr) 20 mg PO DAILY@0630 [facility] Last Admin: 07/22/24 06:01 Dose: 20 mg Documented By: SHANE Ondansetron HCl (Ondansetron Hcl 4 Mg/2 Ml Vial) 4 mg IVPUSH Q8H PRN PRN Reason: Nausea and Vomiting Oxycodone HCl (Oxycodone Hcl Immed Release 5 Mg Tablet) 5 mg PO Q6H PRN PRN Reason: Pain, Moderate(Pain Scale 4-6) Last Admin: 07/21/24 20:28 Dose: 5 mg Documented By: SHANE Prazosin HCl (Prazosin Hcl 1 Mg Capsule) 1 mg PO BEDTIME MRX1 PRN; Protocol PRN Reason: Sleep Ropinirole HCl (Ropinirole Hcl 0.25 Mg Tablet) 0.25 mg PO BID [facility] Last Admin: 07/21/24 20:28 Dose: 0.25 mg Documented By: SHANE Sodium Chloride (0.9 % Sodium Chloride Flush 3 Ml Syringe) 3 ml IVFLUSH QSHIFT [facility] Last Admin: 07/21/24 22:22 Dose: 3 ml Documented By: SHANE Spironolactone (Spironolactone 25 Mg Tablet) 50 mg PO DAILY [facility]; Protocol Tolterodine Tartrate (Tolterodine Tartrate La 4 Mg Cap.Er.24h) 4 mg PO DAILY [facility] Vitamin D (Cholecalciferol (Vitamin D3) 10 Mcg Tablet) 10 mcg PO DAILY [facility] Zonisamide (Zonisamide 100 Mg Capsule) 100 mg PO BID PRN PRN Reason: Nausea Last Admin: 07/21/24 20:35 Dose: 100 mg Documented By: SHANE Labs 07/21/24 05:29 07/21/24 05:29 Labs: Laboratory Results - last 24 hr 07/21/24 05:29 Anion Gap 11 L Estim Creat Clear Calc 66.7 Estimated GFR > 60 Random Glucose 86 Calcium 8.1 L D Microbiology Microbiology Results: Microbiology 07/20/24 Unknown Urine Culture - Final Urine clean catch - Clean Catch Midstream Strep agalactiae (Grp B) 07/20/24 11:02 Blood Culture - Preliminary Blood - Venous No growth after 24 hours. 07/20/24 11:02 Blood Culture - Preliminary Blood - Venous No growth after 24 hours. Assessment and Plan (1) UTI (urinary tract infection): Status: Acute (2) Hypertension: Status: Acute Plan 69-year-old female the history of hypertension, hypothyroidism, hyperlipidemia, CKD, GERD and vertigo who presented to the ED with nausea, vomitting and lower abdominal pain, dizziness. Has UTI and SB SBO--seems clinically resolved further management and diet per surgery UTI--treat with ceftriaxone, change to ceftin 250 bid x 3 days for total 5 upon discharge, macrobid not a good choice Dizziness--likely related to above and seems to resolved HTN continue home meds norvasc, metoprolol and aldacone HLD statin Hypothyroidism continue levothyroxine Lovenox for DVT prophylaxis Medically stable and will sing off and follow on needed basis Quality Stroke Does the patient have a stroke diagnosis?: No VTE Prior VTE?: No VTE Risk Level:: Surgical - moderate VTE Device Contraindication: N/A - Device Ordered VTE Drug Contraindication: N/A - Med Ordered
[2024-07-22] MEDS: 0.9 % Sodium Chloride Flush 3 ML SYRINGE IVFLUSH (07:53)
[2024-07-22] MEDS: ondansetron HCL 4 MG/2 ML VIAL IVPUSH (07:54)
[2024-07-22] MEDS: amLODIPine Besylate 10 MG TABLET PO (07:57)
[2024-07-22] MEDS: Ascorbic Acid 250 MG TABLET PO (07:58)
[2024-07-22] MEDS: Cyanocobalamin (Vitamin B-12) 1,000 MCG TABLET 1000 MCG PO (07:58)
[2024-07-22] MEDS: Spironolactone 25 MG TABLET 50 MG PO (07:58)
[2024-07-22] MEDS: Aspirin Enteric Coated 81 MG TABLET.DR PO (07:59)
[2024-07-22] MEDS: Metoprolol Succinate ER 100 MG TAB.ER.24H PO (07:59)
[2024-07-22] MEDS: buPROPion HCl XL 150 MG TAB.ER.24H PO (07:59)
[2024-07-22] MEDS: rOPINIRole HCL 0.25 MG TABLET PO (08:00)
[2024-07-22] MEDS: Cholecalciferol (Vitamin D3) 10 MCG TABLET PO (08:00)
[2024-07-22] MEDS: Multivitamin TABLET 1 TAB PO (08:00)
[2024-07-22] MEDS: Tolterodine Tartrate LA 4 MG CAP.ER.24H PO (08:00)
[2024-07-22] MEDS: Atorvastatin Calcium 20 MG TABLET PO (08:00)
[2024-07-22] MEDS: Dorzolamide/Timolo 2.23%/0.68% 10 ML DRBTL 1 DROP EYE-LEFT (08:01)
[2024-07-22 14:00] VITALS: BP 124/64; PULSE 67; RESP 16; TEMP 36.6
--- NOTE | 2024-07-22 14:54 | PM.PNGS ---
Subjective Subjective Date of Service: 07/22/24 Interval history: Patient was passing some flatus and stool. Tolerating her diet. She has been up ambulating. She is interested in going home. Physical Exam Vital Signs: Vital Signs: Last Vital Signs Temp 97.9 F 07/22/24 14:00 Pulse 67 07/22/24 14:00 Resp 16 07/22/24 14:00 BP 124/64 07/22/24 14:00 Pulse Ox 97 07/22/24 06:46 O2 Del Method Room Air 07/22/24 14:00 BMI result Body Mass Index 34.9 GI: Other: Abdomen very corpulent, soft, benign. No evidence of any guarding, rebound, or rigidity. Objective Data Active Medications Acetaminophen (Acetaminophen 325 Mg Tablet) 650 mg PO Q6H PRN PRN Reason: Pain, Mild 1-3,fever,headache Albuterol Sulfate (Albuterol Sulfate 90 Mcg 8 Gm Inhaler) 2 puff INHALE Q4H PRN PRN Reason: shortness of breath or wheezing Albuterol Sulfate (Albuterol Sulfate 90 Mcg 8 Gm Inhaler) 2 puff INHALE Q4H PRN PRN Reason: shortness of breath or wheezing Amlodipine Besylate (Amlodipine Besylate 10 Mg Tablet) 10 mg PO DAILY [facility]; Protocol Last Admin: 07/22/24 07:57 Dose: 10 mg Documented By: RILEY Ascorbic Acid (Ascorbic Acid 250 Mg Tablet) 250 mg PO DAILY [facility] Last Admin: 07/22/24 07:58 Dose: 250 mg Documented By: RILEY Aspirin (Aspirin Enteric Coated 81 Mg Tablet.) 81 mg PO DAILY [facility] Last Admin: 07/22/24 07:59 Dose: 81 mg Documented By: RILEY Atorvastatin Calcium (Atorvastatin Calcium 20 Mg Tablet) 20 mg PO DAILY [facility] Last Admin: 07/22/24 08:00 Dose: 20 mg Documented By: RILEY Bupropion HCl (Bupropion Hcl Xl 150 Mg Tab.Er.24h) 150 mg PO DAILY [facility] Last Admin: 07/22/24 07:59 Dose: 150 mg Documented By: RILEY Calcium Carbonate (Calcium Carbonate 750 Mg Tab.Chew) 750 mg PO Q4H PRN PRN Reason: Heartburn Ceftriaxone Sodium (Ceftriaxone Sodium 1 Gm Vial) 1 gm IVPUSH Q24H [facility] Cyanocobalamin (Cyanocobalamin (Vitamin B-12) 1,000 Mcg Tablet) 1,000 mcg PO DAILY [facility] Last Admin: 07/22/24 07:58 Dose: 1,000 mcg Documented By: RILEY Cyclobenzaprine HCl (Cyclobenzaprine Hcl 10 Mg Tablet) 10 mg PO BID PRN PRN Reason: Muscle Spasm Dorzolamide/Timolol (Dorzolamide/Timolo 2.23%/0.68% 10 Ml Drbtl) 1 drop EYE-LEFT Q12H [facility] Last Admin: 07/22/24 08:01 Dose: 1 drop Documented By: RILEY Enoxaparin Sodium (Enoxaparin Sodium 40 Mg/0.4 Ml Syringe) 40 mg SUBCUT Q24H [facility] Last Admin: 07/21/24 20:29 Dose: 40 mg Documented By: SHANE Hydromorphone HCl (Hydromorphone Hcl 0.5 Mg/0.5 Ml Syringe) 0.5 mg IVPUSH Q3H PRN; Protocol PRN Reason: Pain, Severe (Pain Scale 7-10) Levothyroxine Sodium (Levothyroxine Sodium 75 Mcg Tablet) 75 mcg PO DAILY@0600 [facility] Last Admin: 07/22/24 06:01 Dose: 75 mcg Documented By: SHANE Lidocaine (Lidocaine 4 % Patch Adh..Patch) 1 patch TRANSDERMA DAILY PRN PRN Reason: Pain Magnesium Hydroxide (Milk Of Magnesia 30 Ml Oral.Susp) 30 ml PO DAILY PRN PRN Reason: Constipation Meclizine HCl (Meclizine Hcl 25 Mg Tablet) 25 mg PO TID PRN PRN Reason: Dizziness Melatonin (Melatonin 3 Mg Tablet) 6 mg PO BEDTIME PRN PRN Reason: Insomnia Metoprolol Succinate (Metoprolol Succinate Er 100 Mg Tab.Er.24h) 100 mg PO DAILY [facility]; Protocol Last Admin: 07/22/24 07:59 Dose: 100 mg Documented By: RILEY Multivitamins/Vitamin C (Multivitamin Tablet) 1 tab PO DAILY [facility] Last Admin: 07/22/24 08:00 Dose: 1 tab Documented By: RILEY Omeprazole (Omeprazole 20 Mg Capsule.Dr) 20 mg PO DAILY@0630 [facility] Last Admin: 07/22/24 06:01 Dose: 20 mg Documented By: SHNAE Ondansetron HCl (Ondansetron Hcl 4 Mg/2 Ml Vial) 4 mg IVPUSH Q8H PRN PRN Reason: Nausea and Vomiting Last Admin: 07/22/24 07:54 Dose: 4 mg Documented By: RILEY Oxycodone HCl (Oxycodone Hcl Immed Release 5 Mg Tablet) 5 mg PO Q6H PRN PRN Reason: Pain, Moderate(Pain Scale 4-6) Last Admin: 07/21/24 20:28 Dose: 5 mg Documented By: SHANE Prazosin HCl (Prazosin Hcl 1 Mg Capsule) 1 mg PO BEDTIME MRX1 PRN; Protocol PRN Reason: Sleep Ropinirole HCl (Ropinirole Hcl 0.25 Mg Tablet) 0.25 mg PO BID [facility] Last Admin: 07/22/24 08:00 Dose: 0.25 mg Documented By: RILEY Sodium Chloride (0.9 % Sodium Chloride Flush 3 Ml Syringe) 3 ml IVFLUSH QSHIFT [facility] Last Admin: 07/22/24 07:53 Dose: 3 ml Documented By: RILEY Spironolactone (Spironolactone 25 Mg Tablet) 50 mg PO DAILY [facility]; Protocol Last Admin: 07/22/24 07:58 Dose: 50 mg Documented By: RILEY Tolterodine Tartrate (Tolterodine Tartrate La 4 Mg Cap.Er.24h) 4 mg PO DAILY [facility] Last Admin: 07/22/24 08:00 Dose: 4 mg Documented By: RILEY Vitamin D (Cholecalciferol (Vitamin D3) 10 Mcg Tablet) 10 mcg PO DAILY [facility] Last Admin: 07/22/24 08:00 Dose: 10 mcg Documented By: RILEY Zonisamide (Zonisamide 100 Mg Capsule) 100 mg PO BID PRN PRN Reason: Nausea Last Admin: 07/21/24 20:35 Dose: 100 mg Documented By: SHANE Labs 07/21/24 05:29 07/21/24 05:29 Microbiology Microbiology Results: Microbiology 07/20/24 11:02 Blood Culture - Preliminary Blood - Venous No growth after 48 hours. 07/20/24 11:02 Blood Culture - Preliminary Blood - Venous No growth after 48 hours. 07/20/24 Unknown Urine Culture - Final Urine clean catch - Clean Catch Midstream Strep agalactiae (Grp B) Procedures Date of Service Date of Service: 07/22/24 Progress Note: A&P Assessment and plan (1) Small bowel obstruction: Status: Acute Plan Current plan is discharge patient home with follow-up with Dr. Herndon per discharge instructions. These were reviewed with the patient was well. All questions answered. Time Spent With Patient Time: Total time managing care of this patient today ____ minutes. Quality Stroke Does the patient have a stroke diagnosis?: No VTE Prior VTE?: No VTE Risk Level:: Surgical - moderate VTE Device Contraindication: N/A - Device Ordered VTE Drug Contraindication: N/A - Med Ordered
--- NOTE | 2024-07-22 15:02 | PM.DS ---
DS: Providers Provider Date of Service: 07/22/24 Date of admission: 07/20/24 10:27 Date of discharge: 07/22/24 Primary care physician: VON Head Attending physician on admission: Guillermo Herndon Consults: 07/20/24 10:13 Consult to General Surgery Stat Consulting Provider: Guillermo Herndon Reason for consultation: SBO vs ileus 07/20/24 10:38 Consult to Hospitalist Routine Comment: Consulting Provider: [facility] Hospitalists Reason For Exam: HTN, CKD, SBO medical management Attending physician on discharge: Keaton Bee DS: Diagnosis Discharge Diagnosis (1) Small bowel obstruction: Status: Acute DS: Summary Hospital Course Hospital Course: HPI AT ADMISSION: Lauren Lemos is a 69 year old female with a past history of hypertension presenting with complaints of abdominal pain, nausea and vomiting since yesterday. She reports a prior history of a small-bowel obstruction approximately 2 years ago treated at [facility] which resolved non operatively. She reports the pain started after eating dinner at around 06:00 o'clock and was associated with the nausea and vomiting. She reports 2 prior sections and a previous surgery for small-bowel obstruction. She presented to the emergency department and was noted to have a soft abdomen. CT abdomen and pelvis does reveal dilated proximal small bowel loops with decompressed distal small bowel loops suggestive of a partial small-bowel obstruction. HOSPITAL COURSE: She was admitted to the surgical service for further management of this partial small-bowel obstruction. She was started on IV hydration and clear liquids. She had an uncomplicated hospital stay. Her abdominal symptoms resolved. Her diet was advanced as tolerated. Her activity was increased. On the day of discharge, she was tolerating a solid diet without nausea or vomiting. She had good GI function. Her abdomen was benign and soft, nondistended, nontender. She felt ready for discharge. She was discharged to home on 07/22/24 in stable condition. Status at Discharge Functional status at discharge: independent ambulation Overall status at discharge: patient is progressing back to baseline Time Attestation Discharge Coordination Time (in mins): 30 Quality: Safe Use of Opioids Does Pt have an Active Cancer Diagnosis on the Problem List?: No Quality: Stroke Does the patient have a stroke diagnosis?: No Physical Exam Vital Signs: Vital Signs: Last Vital Signs Temp 97.9 F 07/22/24 14:00 Pulse 67 07/22/24 14:00 Resp 16 07/22/24 14:00 BP 124/64 07/22/24 14:00 Pulse Ox 97 07/22/24 06:46 O2 Del Method Room Air 07/22/24 14:00 BMI result Body Mass Index 34.9 Const: General: comfortable, no acute distress and alert GI: Other: soft, nontender, nondistended Discharge Plan Discharge Anticipated Discharge Date/Time: 07/21/24 15:09 Patient Disposition: Home, Self-Care Discharge Diagnosis: PSBO Referrals: Guillermo Herndon MD [Physician] - 1 Week Carlos Castañeda PA [Primary Care Provider] - 1 Week (Dr. Herndon call office 1 week follow up) Discharge Medications: New cefuroxime axetil 250 mg tablet 250 mg PO BID 4 Days Qty: 8 0RF Continued (DME) walker [facility] See Rx Instructions .Route Qty: 1 0RF Rx Instructions: As directed prazosin 1 mg capsule 1 - 2 mg PO BEDTIME PRN (Reason: Sleep) dorzolamide-timolol 22.3-6.8 mg/mL drops 1 drp ophthalmic-Left Q12H bupropion HCl 150 mg tablet extended release 24 hr 150 mg PO DAILY albuterol sulfate 90 mcg/actuation HFA aerosol inhaler 2 puff inhalation Q4-6H PRN (Reason: shortness of breath or wheezing) Qty: 8.5 0RF amlodipine 10 mg tablet 10 mg PO DAILY aspirin 81 mg Tablet,Delayed Release (Dr/Ec) 81 mg PO DAILY ascorbic acid (vitamin C) 250 mg Tablet 250 mg PO DAILY multivitamin Tablet 1 tab PO DAILY tolterodine 4 mg capsule,extended release 24hr 4 mg PO DAILY cyanocobalamin (vitamin B-12) 1,000 mcg Tablet 1,000 mcg PO DAILY zonisamide 100 mg capsule 100 mg PO BID PRN (Reason: Nausea) lidocaine 5 % adhesive patch,medicated 1 patch topical DAILY PRN (Reason: Pain) cholecalciferol (vitamin D3) 10 mcg (400 unit) Tablet 10 mcg PO DAILY omeprazole 20 mg capsule,delayed release(DR/EC) 20 mg PO DAILY@0630 ropinirole 0.25 mg tablet 0.25 mg PO BID levothyroxine 75 mcg tablet 75 mcg PO DAILY@0600 atorvastatin 20 mg tablet 20 mg PO DAILY cyclobenzaprine 10 mg tablet 10 mg PO BID PRN (Reason: Muscle Spasm) metoprolol succinate 100 mg tablet extended release 24 hr 100 mg PO DAILY ondansetron 4 mg tablet,disintegrating 4 mg PO Q8-10H PRN (Reason: Nausea) meclizine 25 mg tablet 25 mg PO TID PRN (Reason: Dizziness) spironolactone 50 mg tablet 50 mg PO DAILY Discharge Orders: Discharge Order (Routine); Ordered 07/22/24 Ordered By: Keaton Bee Diet: Advance to usual diet Activity on Discharge: No heavy lifting Stand Alone Forms: Patient Portal Discharge page Print Language: Nepalese Activity Restrictions/Additional Instructions: Follow up with your PCP. Call Your Doctor If: ? ? -Your temperature exceeds 101.5? F? ? ? -You experience excessive pain or swelling ? ? -You have an unexpected reaction to medication ? ? -You experience continued vomiting/nausea Care Plan Goals: Return to baseline health and resume normal activities. Health Concerns: No new issues Plan of Treatment: Continued convalescence Assessment: Stable Discharge Date/Time: 07/22/24 15:40
== END 2024-07-22 15:40 | disposition home or self-care (01) | DRG 389 ==
LOC: HO.ED 10:25 → HO.EDOVER 10:35 → HO.S3 17:30
PROVIDERS: Physician Assistant Medical; Admitting Provider Surgery; Emergency Provider Emergency Medicine Emergency Medical Services; PCP Physician Assistant Medical; Visit Provider Surgery
DX: K56.600 Partial intestinal obstruction, unspecified as to cause (principal); N39.0 Urinary tract infection, site not specified; E03.9 Hypothyroidism, unspecified; E78.5 Hyperlipidemia, unspecified; B95.1 Streptococcus, group B, as the cause of diseases classified elsewhere; Z20.822 Contact with and (suspected) exposure to COVID-19; Z79.82 Long term (current) use of aspirin; Z79.890 Hormone replacement therapy; Z79.899 Other long term (current) drug therapy
CPT/HCPCS: 0241U; 36415; 74018; 74177; 80048; 80076; 81001; 85025; 87040; 87086; 87147; 99285; J0131; J0696; J1650; J2405; J2765; Q9967

== ENCOUNTER → 2024-07-20 07:36 | Outpatient (BNV) | payer OTHER, SELFPAY | PROVIDERS: Emergency Provider Emergency Medicine Emergency Medical Services; PCP Physician Assistant Medical; Visit Provider Radiology Diagnostic Radiology | DX: K56.41 Fecal impaction (principal); D25.9 Leiomyoma of uterus, unspecified | CPT/HCPCS: 74177 ==

== ENCOUNTER 2024-07-20 10:27 | Outpatient (BNV) | payer OTHER, SELFPAY | END 2024-07-22 10:20 | PROVIDERS: Admitting Provider Surgery; Emergency Provider Emergency Medicine Emergency Medical Services; PCP Physician Assistant Medical; Visit Provider Radiology Vascular & Interventional Radiology | DX: K56.41 Fecal impaction (principal) | CPT/HCPCS: 74018 ==

== ENCOUNTER → 2024-07-20 10:27 | Outpatient (BNV) | payer OTHER, SELFPAY | PROVIDERS: Admitting Provider Surgery; Emergency Provider Emergency Medicine Emergency Medical Services; PCP Physician Assistant Medical; Visit Provider Internal Medicine | DX: N39.0 Urinary tract infection, site not specified (principal); I10 Essential (primary) hypertension | CPT/HCPCS: 99223; 99232 ==

== ENCOUNTER → 2024-07-20 10:27 | Outpatient (BNV) | payer OTHER, SELFPAY | PROVIDERS: Admitting Provider Surgery; Emergency Provider Emergency Medicine Emergency Medical Services; PCP Physician Assistant Medical; Visit Provider Surgery | DX: K56.609 Unspecified intestinal obstruction, unspecified as to partial versus complete obstruction (principal) | CPT/HCPCS: 99222; 99232; 99238; 99499 ==

== ENCOUNTER 2024-09-29 03:13 | Emergency (ER) | payer OTHER, SELFPAY ==
[2024-09-29 03:16] VITALS: BP 276/116; PULSE 82; O2SAT 98
[2024-09-29 03:44] VITALS: BMI 33.5
--- NOTE | 2024-09-29 03:51 | MHC.EDTECH ---
did crisis change management director with pt and Franck. Did a pt belongings list. Belongings are stored on shelf 4 in the [facility]
[2024-09-29 03:55] VITALS: BP 146/68
--- NOTE | 2024-09-29 04:19 | ED.ALCOHOL ---
HPI - Alcohol General Chief Complaint: ETOH/Substance Use Stated Complaint: SI ETOH Time Seen by Provider: 09/29/24 04:19 Source: patient Mode of arrival: EMS Limitations: no limitations History of Present Illness ED Provider: HPI narrative: Patient with history of depression apparently lost her a week ago drank about 0.5 gal of rum and while on the phone with friend made a statement saying that wondering about jumping off the 4th floor window friend called the EMS. After arrival patient denied any SI feel bad that she is here no prior history of SI and has stable depression been followed by therapist Related Data Home Medications ?Medication ?Instructions ?Recorded ?Confirmed atorvastatin 20 mg tablet 20 mg PO DAILY 08/22/21 07/20/24 cyclobenzaprine 10 mg tablet 10 mg PO BID PRN Muscle Spasm 08/22/21 07/20/24 levothyroxine 75 mcg tablet 75 mcg PO DAILY@0600 08/22/21 07/20/24 metoprolol succinate 100 mg 100 mg PO DAILY 08/22/21 07/20/24 tablet,extended release 24 hr omeprazole 20 mg capsule,delayed 20 mg PO DAILY@0630 08/22/21 07/20/24 release ropinirole 0.25 mg tablet 0.25 mg PO BID 08/22/21 07/20/24 meclizine 25 mg tablet 25 mg PO TID PRN Dizziness 04/07/23 07/20/24 ondansetron 4 mg disintegrating 4 mg PO Q8-10H PRN Nausea 04/07/23 07/20/24 tablet amlodipine 10 mg tablet 10 mg PO DAILY 04/26/24 07/20/24 ascorbic acid (vitamin C) 250 mg 250 mg PO DAILY 04/26/24 07/20/24 tablet aspirin 81 mg tablet,delayed 81 mg PO DAILY 04/26/24 07/20/24 release cholecalciferol (vitamin D3) 10 10 mcg PO DAILY 04/26/24 07/20/24 mcg (400 unit) tablet cyanocobalamin (vitamin B-12) 1,000 mcg PO DAILY 04/26/24 07/20/24 1,000 mcg tablet lidocaine 5 % topical patch 1 patch topical DAILY PRN Pain 04/26/24 07/20/24 multivitamin 1 tab PO DAILY 04/26/24 07/20/24 tolterodine 4 mg capsule,extended 4 mg PO DAILY 04/26/24 07/20/24 release 24 hr zonisamide 100 mg capsule 100 mg PO BID PRN Nausea 04/26/24 07/20/24 spironolactone 50 mg tablet 50 mg PO DAILY 06/08/24 07/20/24 bupropion HCl 150 mg 24 hr tablet, 150 mg PO DAILY 07/20/24 07/20/24 extended release dorzolamide 22.3 mg-timolol 6.8 1 drp ophthalmic-Left Q12H 07/20/24 07/20/24 mg/mL eye drops prazosin 1 mg capsule 1 - 2 mg PO BEDTIME PRN Sleep 07/20/24 07/20/24 Previous Rx's ?Medication ?Instructions ?Recorded albuterol sulfate 90 mcg/actuation 2 puff inhalation Q4-6H PRN 01/08/24 aerosol inhaler shortness of breath or wheezing #8.5 grams walker #1 ea 05/10/24 cefuroxime axetil 250 mg tablet 250 mg PO BID 4 days #8 tabs 07/22/24 Allergies Allergy/AdvReac Type Severity Reaction Status Date / Time gluten [GLUTEN] Allergy Unknown UNKNOWN Verified 09/29/24 03:48 mushroom Allergy Unknown UNKNOWN Verified 09/29/24 03:48 Review of Systems Review of Systems: Yes all other systems are reviewed and are negative PMFSH Past Medical History Medical History Osteopenia Glaucoma Osteoarthritis CKD (chronic kidney disease) stage 3, GFR 30-59 ml/min Vitamin D deficiency Vitamin B12 deficiency Shoulder pain, left Back pain Anxiety LOC (loss of consciousness) Bilateral leg edema Chest pain Dyspnea RLS (restless legs syndrome) Depression Presence of implantable pulmonary artery pressure and heart rate monitoring system Right knee injury Right shoulder injury Femur fracture, right Femur fracture, left delivery delivered Migraine Restless Kidney disease Heart murmur Overactive bladder Overactive adult syndrome Thyroid disease Hyperlipidemia Hypertension Surgical History History of cataract surgery (~05/2024) History of surgery Social History Social History Household Members: Spouse Housing: Apartment Do you presently have visiting nurse or other home services: No Alcohol intake: current Alcohol intake frequency: 3 or more drinks per day Alcohol type: hard liquor Patient Tobacco Use Status: Never used Tobacco Smoked in Last 30 Days: No Second Hand Smoke Exposure: No Use of substances other than those prescribed or required for medical reasons: Yes Substance Use Type: Marijuana Substance Use Frequency: Occasionally Advance Directives: Yes Advance Directives on File: Yes Advance Directives Date on File: 09/10/20 Do you have a plan to hurt others: No Plan service: No Physical Exam ED Vital Signs: Vital Signs - 24 hr 09/29/24 03:55 Blood Pressure 146/68 H BMI result Body Mass Index 33.5 Appearance: Alert. Oriented X3. No acute distress. ETOH + Eyes: PERRLA, No Nystagmus ENT: Pharynx normal. Oral Mucosa moist Neck: Normal inspection. Neck supple. CVS: Normal heart rate and rhythm. Pulses normal. Respiratory: No respiratory distress. Equal air entry bilateral, no wheezing/rales/rhonchi Abdomen: Soft and nontender. Bowel sounds are present, no mass palpable, no CVA tenderness Skin: Skin warm and dry. Normal skin color. Normal skin turgor. Extremities: No lower extremity edema. No calf tenderness psych: Stable mood denies any SI or HI Neuro: Oriented X 3. No motor deficit. No sensory deficit.No cerebellar signs , cranial nerves II-XII intact Medical Decision Making Medical Decision Making MDM Narrative: Patient has significant depression with grief reaction intoxicated with suicidal feeling at home denies SI feeling at this time requesting to go home will check the alcohol level and ask care team to talk to the patient Patient's ETOH level only 50 sober at this time denies any SI feeling does not want to be seen by care team patient insisting going home as she just was drunk and made a statement without any thoughts she has a escape plan and would like to come back to the ER in case she has a same feeling at home instructions were given to follow up with care team Lab Data [facility] Lab Attestation statement: I reviewed the patient's lab results. 09/29/24 04:18 09/29/24 04:18 Labs: Lab Results 09/29/24 Range/Units 04:18 WBC 8.0 (4.8-10.8) X10*3/uL RBC 4.25 (4.20-5.50) X10*6/uL Hgb 13.0 (12.0-16.0) g/dl Hct 38.9 (37.0-47.0) % MCV 91.5 (80.0-98.0) fL MCH 30.6 (27.0-33.0) pg MCHC 33.4 (31.0-35.0) g/dl RDW 12.9 (11.0-16.0) % Plt Count 208 (160-400) X10*3/uL MPV 9.9 (9.4-12.3) fL Immature Gran % (Auto) 1.1 H (0.0-0.4) % Neut % (Auto) 59.1 (45-73) % Lymph % (Auto) 26.0 (20-40) % Sharp % (Auto) 8.4 (2-11) % Eos % (Auto) 4.4 H (0-4) % Baso % (Auto) 1.0 (0-2) % Lymph # (Auto) 2.1 (1.2-4.9) X10*3/uL Sharp # (Auto) 0.7 (0.1-1.2) X10*3/uL Eos # (Auto) 0.4 (0.0-0.4) X10*3/uL Baso # (Auto) 0.1 (0.0-0.2) X10*3/uL Abs Immat Gran (auto) 0.09 H (0.00-0.03) X10*3/uL Absolute Neuts (auto) 4.7 (2.0-8.3) x10*3/uL Absolute Nucleated RBC 0.000 (0.0-0.012) X10*3/uL Nucleated RBC % (auto) 0.0 (0.0-0.2) /100WBC Sodium 141 (135-145) mmol/L Potassium 3.9 (3.3-5.1) mmol/L Chloride 112 H (96-108) mmol/L Carbon Dioxide 19 L (22-29) mmol/L Anion Gap 14 (12-20) BUN 27 H (9-16) mg/dL Creatinine 1.10 (0.5-1.4) mg/dL Estim Creat Clear Calc 53.4 Estimated GFR 50 Random Glucose 92 (60-115) mg/dL Calcium 8.8 D (8.4-10.2) mg/dL Total Bilirubin 0.3 (0.0-1.0) mg/dL AST 17 (5-31) U/L ALT 17 (0-31) U/L Alkaline Phosphatase 118 H (39-117) U/L Total Protein 6.4 L (6.5-8.0) g/dL Albumin 3.6 (3.5-5.0) g/dL Ethyl Alcohol 50 mg/dL Discharge Plan Discharge Clinical Impression: Alcoholic intoxication, Depression Patient Disposition: Home, Self-Care Instructions: Depression (ED), Abuse of Alcohol (ED) Additional Instructions: You were seen in our Emergency Department today for treatment of a behavioral health issue. It is important after your visit that you follow up with either your behavioral health provider or a primary care doctor within 7 days.? If you have trouble finding a therapist you can reach out to [place] [phone] [facility] [employer] Suicide and Crisis Lifeline can be reached 7 days a week 24 hours a day.? Call [phone] to speak with someone.? Return for any worsening symptoms or concerns such as thoughts of self harm or harm to others. Please call 911 if you feel your mental health is worsening.? Prescriptions: No Action (DME) walker [facility] See Rx Instructions .Route Qty: 1 0RF Rx Instructions: As directed prazosin 1 mg capsule 1 - 2 mg PO BEDTIME PRN (Reason: Sleep) dorzolamide-timolol 22.3-6.8 mg/mL drops 1 drp ophthalmic-Left Q12H bupropion HCl 150 mg tablet extended release 24 hr 150 mg PO DAILY cefuroxime axetil 250 mg tablet 250 mg PO BID 4 Days Qty: 8 0RF albuterol sulfate 90 mcg/actuation HFA aerosol inhaler 2 puff inhalation Q4-6H PRN (Reason: shortness of breath or wheezing) Qty: 8.5 0RF amlodipine 10 mg tablet 10 mg PO DAILY aspirin 81 mg Tablet,Delayed Release (Dr/Ec) 81 mg PO DAILY ascorbic acid (vitamin C) 250 mg Tablet 250 mg PO DAILY multivitamin Tablet 1 tab PO DAILY tolterodine 4 mg capsule,extended release 24hr 4 mg PO DAILY cyanocobalamin (vitamin B-12) 1,000 mcg Tablet 1,000 mcg PO DAILY zonisamide 100 mg capsule 100 mg PO BID PRN (Reason: Nausea) lidocaine 5 % adhesive patch,medicated 1 patch topical DAILY PRN (Reason: Pain) cholecalciferol (vitamin D3) 10 mcg (400 unit) Tablet 10 mcg PO DAILY omeprazole 20 mg capsule,delayed release(DR/EC) 20 mg PO DAILY@0630 ropinirole 0.25 mg tablet 0.25 mg PO BID levothyroxine 75 mcg tablet 75 mcg PO DAILY@0600 atorvastatin 20 mg tablet 20 mg PO DAILY cyclobenzaprine 10 mg tablet 10 mg PO BID PRN (Reason: Muscle Spasm) metoprolol succinate 100 mg tablet extended release 24 hr 100 mg PO DAILY ondansetron 4 mg tablet,disintegrating 4 mg PO Q8-10H PRN (Reason: Nausea) meclizine 25 mg tablet 25 mg PO TID PRN (Reason: Dizziness) spironolactone 50 mg tablet 50 mg PO DAILY Interventions: ED Discharge Assessment Last Done: 09/29/24 05:49 Discharge Date/Time: 09/29/24 05:51 Print Language: Pakistani
[2024-09-29 04:22] LABS: Basophils Absolute Auto 0.1 X10*3/uL (0.0-0.2); Eosinophils Absolute Auto 0.4 X10*3/uL (0.0-0.4); Eosinophils Percent Auto 4.4 % (0-4); Hematocrit 38.9 % (37.0-47.0); Imm Gran Abs Auto 0.09 X10*3/uL (0.00-0.03); Imm Gran Pct Auto 1.1 % (0.0-0.4); Lymphocytes Absolute Auto 2.1 X10*3/uL (1.2-4.9); MANUAL DIFF FLAG NO; Mean Corpuscular HGB Conc 33.4 g/dl (31.0-35.0); Mean Corpuscular Hemoglobin 30.6 pg (27.0-33.0); Mean Corpuscular Volume 91.5 fL (80.0-98.0); Mean Platelet Volume 9.9 fL (9.4-12.3); Monocytes Absolute Auto 0.7 X10*3/uL (0.1-1.2); Monocytes Percent Auto 8.4 % (2-11); Neutrophils Absolute Auto 4.7 x10*3/uL (2.0-8.3); Neutrophils Percent Auto 59.1 % (45-73); Platelet Count 208 X10*3/uL (160-400); Red Blood Count 4.25 X10*6/uL (4.20-5.50); Red Cell Distribution Width 12.9 % (11.0-16.0)
[2024-09-29 04:58] LABS: Alanine Aminotransferase 17 U/L (0-31); Albumin Level 3.6 g/dL (3.5-5.0); Anion Gap 14 (12-20); Aspartate Amino Transferase 17 U/L (5-31); Bilirubin Total 0.3 mg/dL (0.0-1.0); Blood Urea Nitrogen 27 mg/dL (9-16); Calcium 8.8 mg/dL (8.4-10.2); Carbon Dioxide 19 mmol/L (22-29); Chloride 112 mmol/L (96-108); Creatinine Clr Calc Pharmacy 53.4; Estimated Glomerular Filt Rate 50; Ethanol 50 mg/dL; Glucose Random 92 mg/dL (60-115); Potassium 3.9 mmol/L (3.3-5.1); Sodium 141 mmol/L (135-145); Total Protein 6.4 g/dL (6.5-8.0)
[2024-09-29 05:09] LABS: Alkaline Phosphatase 118 U/L (39-117)
[2024-09-29 05:49] VITALS: BP 0/0; PULSE 0; RESP 0; TEMP -17.7; TEMP 0; O2SAT 0
== END 2024-09-29 05:51 | disposition home or self-care (01) ==
PROVIDERS: Emergency Provider Internal Medicine
DX: F32.A Depression, unspecified (principal); F43.20 Adjustment disorder, unspecified; F10.120 Alcohol abuse with intoxication, uncomplicated; Y90.2 Blood alcohol level of 40-59 mg/100 ml; Z72.89 Other problems related to lifestyle; Z63.4 Disappearance and death of family member; Z79.899 Other long term (current) drug therapy
CPT/HCPCS: 36415; 80053; 80307; 85025; 99283; 99284

== ENCOUNTER 2024-10-11 23:53 | Emergency (ER) | payer OTHER, SELFPAY ==
--- NOTE | ~2024-10-11 | XR_ITS ---
CLINICAL HISTORY: pain swelling s p injury 3 views right ankle Comparison: None Findings: There is soft tissue swelling. There is no fracture or dislocation. Joint spaces appear normal. Impression: No osseous abnormality. This document has been electronically signed by: Rusty العلي MD on 10/12/2024 00:56:02
--- NOTE | ~2024-10-11 | XR_ITS ---
CLINICAL HISTORY: pain s p injury 3 views right foot Comparison: None Findings: There appears to be mild dorsal soft tissue swelling. There is no fracture or dislocation. Joint spaces appear normal. There is no radiopaque foreign body. Impression: No acute osseous abnormality. This document has been electronically signed by: Rusty العلي MD on 10/12/2024 02:30:15
[2024-10-12 00:01] VITALS: BP 126/37; BP 137/87; PULSE 60; PULSE 61; RESP 16; TEMP 36.8; O2SAT 97; O2SAT 98; BMI 34.0
--- OUTSIDE RECORDS SUMMARY | 2024-10-12 00:33 | XMS_ITS | Encounter Summary ---
Author Organization [facility] Address [address] [place] [address] Care Team Providers Care Mail Teller Name Role Phone Haja Donahue MD Primary Care Provider + [phone] Haja Donahue MD Primary Care Provider + [phone] Haja Donahue MD Unavailable [phone] Brent Ellis MD Unavailable [phone] Carlos Castañeda PA-C Primary Care Provider [phone] Nicky Miller Unavailable Unavailable Mark Acuña MD Unavailable [phone] Nanette Wyatt PA-C Unavailable Sunita Sanchez NP Unavailable [phone] Encounter Details Date Type Department Care Team Description 04/24/2019 [facility] Controlled Substance Contract Medical Records [address] [place] [address] Abstract, Provider Social History Tobacco Use Types [...] on filedocumented in this encounter Care Teams Mail Teller Relationship Specialty Start Date End Date Haja Donahue MD [address] [place] [phone] PCP - General Internal Medicine 01/30/19 04/03/20 Haja Donahue MD [address] [place] [id number] PCP - General 04/04/20 10/29/20 Carlos Castañeda PA-C [address] [place] [id number] PCP - General Internal Medicine 10/30/20 Haja Donahue MD [address] [place] [id number] Internal Medicine 04/04/20 Brent Ellis MD [address] [place] [id number] [employer] Cardiovascular Disease 07/16/20 Nicky Miller PA [address] [place] [id number] Specialist Cardiology 02/06/21 11/11/23 Mark Acuña MD [address] [address] Specialist Cardiology 07/31/21 Nanette Wyatt PA-C [address] [address] Specialist Cardiology 07/31/21 Sunita Sanchez NP [address] [place] [id number] Nurse Practitioner Cardiology 10/20/23 documented as of this encounter
--- OUTSIDE RECORDS SUMMARY | 2024-10-12 00:33 | XMS_ITS | Encounter Summary ---
Author Organization [facility] Address [address] [place] [address] Care Team Providers Care Poll Clerk Name Role Phone Haja Donahue MD Unavailable [phone] Brent Ellis MD Unavailable [phone] Carlos Castañeda PA-C Primary Care Provider +[phone] Nicky Miller Unavailable Unavailable Mark Acuña MD Unavailable [phone] Nanette Wyatt PA-C Unavailable Sunita Sanchez NP Unavailable [phone] Encounter Details Date Type Department Care Team Description 12/12/2020 Athletic Scout Report Medical Records [address] [place] [address] Carlos Quiles MD Social History Tobacco Use [...] on filedocumented in this encounter Care Teams Poll Clerk Relationship Specialty Start Date End Date Carlos Castañeda PA-C [address] [place] [address] PCP - General Internal Medicine 10/30/20 Haja Donahue MD [address] [place] [address] Internal Medicine 04/04/20 Brent Ellis MD [address] [place] [address] Strategic Account Executive Cardiovascular Disease 07/16/20 Nicky Miller PA [address] [place] [address] Specialist Cardiology 02/06/21 11/11/23 Mark Acuña MD [address] [address] Specialist Cardiology 07/31/21 Nanette Wyatt PA-C [address] [address] Specialist Cardiology 07/31/21 Sunita Sanchez NP [address] [place] [address] Nurse Practitioner Cardiology 10/20/23 documented as of this encounter
--- OUTSIDE RECORDS SUMMARY | 2024-10-12 00:33 | XMS_ITS | Encounter Summary ---
Author Organization [facility] Address [address] [place] [address] Care Team Providers Care Neon Light Installer Name Role Phone Minh Ferrell MD Primary Care Provider Un available Haja Donahue MD Primary Care Provider + [phone] Haja Donahue MD Primary Care Provider + [phone] Haja Donahue MD Unavailable [phone] Brent Ellis MD Unavailable +[phone] Carlos Castañeda PA-C Primary Care Provider [phone] Nicky Miller Unavailable Unavailable Mark Acuña MD Unavailable +[phone] Nanette Wyatt PA-C Unavailable Sunita Sanchez NP Unavailable [phone] Encounter Details Date Type Department Care Team Description 10/12/2018 [facility] Medical Records [address] [place] [address] Abstract, Provider Social History Tobacco Use Types [...] on filedocumented in this encounter Care Teams Neon Light Installer Relationship Specialty Start Date End Date Minh Ferrell MD PCP - General Internal Medicine 08/30/15 01/29/19 Haja Donahue MD [address] [place] [address] PCP - General Internal Medicine 01/30/19 04/03/20 Haja Donahue MD [address] [place] [address] PCP - General 04/04/20 10/29/20 Carlos Castañeda PA-C [address] [place] [address] PCP - General Internal Medicine 10/30/20 Haja Donahue MD [address] [place] [address] Internal Medicine 04/04/20 Brent Ellis MD [address] [place] [address] Steel Plate Caulker Cardiovascular Disease 07/16/20 Nicky Miller PA [address] [place] [address] Specialist Cardiology 02/06/21 11/11/23 Mark Acuña MD [address] [address] Specialist Cardiology 07/31/21 Nanette Wyatt PA-C [address] [address] Specialist Cardiology 07/31/21 Sunita Sanchez NP [address] [place] [address] Nurse Practitioner Cardiology 10/20/23 documented as of this encounter
--- OUTSIDE RECORDS SUMMARY | 2024-10-12 00:33 | XMS_ITS | Encounter Summary ---
Author Organization [facility] Address [address] [place] [address] Care Team Providers Care Coke Crane Operator Name Role Phone Haja Donahue MD Unavailable [phone] Brent Ellis MD Unavailable [phone] Carlos Castañeda PA-C Primary Care Provider [phone] Nicky Miller Unavailable Unavailable Mark Acuña MD Unavailable [phone] Nanette Wyatt PA-C Unavailable Sunita Sanchez NP Unavailable [phone] Encounter Details Date Type Department Care Team Description 11/18/2020 First Aid Nurse Report Medical Records [address] [place] [address] Maria Antonia Peres Social History Tobacco Use [...] on filedocumented in this encounter Care Teams Coke Crane Operator Relationship Specialty Start Date End Date Carlos Castañeda PA-C [address] [place] [address] PCP - General Internal Medicine 10/30/20 Haja Donahue MD [address] [place] [address] Internal Medicine 04/04/20 Brent Ellis MD [address] [place] [address] Web Services Architect Cardiovascular Disease 07/16/20 Nicky Miller PA [address] [place] [address]887 Specialist Cardiology 02/06/21 11/11/23 Mark Acuña MD [address] [place] [address] Specialist Cardiology 07/31/21 Nanette Wyatt PA-C [address] [place] [address] Specialist Cardiology 07/31/21 Sunita Sanchez NP [address] [place] [address] Nurse Practitioner Cardiology 10/20/23 documented as of this encounter
--- OUTSIDE RECORDS SUMMARY | 2024-10-12 00:33 | XMS_ITS | Encounter Summary ---
Author Organization [facility] Address [address] [place] [address] Care Team Providers Care Artists' Model Name Role Phone Minh Ferrell MD Primary Care Provider Un available Haja Donahue MD Primary Care Provider + [phone] Haja Donahue MD Primary Care Provider + [phone] Haja Donahue MD Unavailable [phone] Brent Ellis MD Unavailable [phone] Carlos Castañeda PA-C Primary Care Provider [phone] Nicky Miller Unavailable Unavailable Mark Acuña MD Unavailable +[phone] Nanette Wyatt PA-C Unavailable Sunita Sanchez NP Unavailable [phone] Reason for Visit * Reason Onset Date Comments refill request 01/16/2019 Encounter Details Date Type Department Care Team Description 01/16/2019 Refill Adult Medicine [address] [address] Minh Ferrell MD refill request Social History [...] / Plan[place] / Product Type: MEDICARE [id number] documented in this encounter Plan of Treatment Not on file documented as of this encounter Visit Diagnoses Not on filedocumented in this encounter Care Teams Artists' Model Relationship Specialty Start Date End Date Minh Ferrell MD PCP - General Internal Medicine 08/30/15 01/29/19 Haja Donahue MD [address] [place] [address] PCP - General Internal Medicine 01/30/19 04/03/20 Haja Donahue MD [address] [place] [address] PCP - General 04/04/20 10/29/20 Carlos Castañeda PA-C [address] [place] [address] PCP - General Internal Medicine 10/30/20 Haja Donahue MD [address] [place] [address] Internal Medicine 04/04/20 Brent Ellis MD [address] [place] [address] [place] [address] Mechatronics Engineer Cardiovascular Disease 07/16/20 Nicky Miller PA [address] [place] [address] Specialist Cardiology 02/06/21 11/11/23 Mark Acuña MD [address] [place] [address] Specialist Cardiology 07/31/21 Nanette Wyatt PA-C [address] [place] [address] Specialist Cardiology 07/31/21 Sunita Sanchez NP [address] [place] [address] Nurse Practitioner Cardiology 10/20/23 documented as of this encounter
--- OUTSIDE RECORDS SUMMARY | 2024-10-12 00:33 | XMS_ITS | Encounter Summary ---
Author Organization [facility] Address [address] [place] [address] Care Team Providers Care Expansion Joint Finisher Name Role Phone Haja Donahue MD Primary Care Provider + [phone] Haja Donahue MD Unavailable +[phone] Brent Ellis MD Unavailable Carlos Castañeda PA-C Primary Care Provider +[phone] Nicky Miller Unavailable Unavailable Mark Acuña MD Unavailable +[phone] Nanette Wyatt PA-C Unavailable Sunita Sanchez NP Unavailable [phone] Encounter Details Date Type Department Care Team Description 09/17/2020 [facility] Medical Records [address] [place] [address] Dora Ring Social History Tobacco Use Types Packs/Day Years [...] on filedocumented in this encounter Care Teams Expansion Joint Finisher Relationship Specialty Start Date End Date Haja Donahue MD [address] [place] [address] PCP - General 04/04/20 10/29/20 Carlos Castañeda PA-C [address] [place] PCP - General Internal Medicine 10/30/20 Haja Donahue MD [address] [place] [address] Internal Medicine 04/04/20 Brent Ellis MD [address] [place] [address] Financial Institution Manager Cardiovascular Disease 07/16/20 Nicky Miller PA [address] [place] [address] Specialist Cardiology 02/06/21 11/11/23 Mark Acuña MD [address] [place] [address] Specialist Cardiology 07/31/21 Nanette Wyatt PA-C [address] [place] [address] Specialist Cardiology 07/31/21 Sunita Sanchez NP [address] [place] [address] Nurse Practitioner Cardiology 10/20/23 documented as of this encounter
--- OUTSIDE RECORDS SUMMARY | 2024-10-12 00:33 | XMS_ITS | Encounter Summary ---
Author Organization [facility] Address [address] [place] [address] Care Team Providers Care Medical Staff Coordinator Name Role Phone Haja Donahue MD Unavailable Brent Ellis MD Unavailable [phone] Carlos Castañeda PA-C Primary Care Provider [phone] Nicky Miller Unavailable Unavailable Mark Acuña MD Unavailable Nanette Wyatt PA-C Unavailable Sunita Sanchez NP Unavailable [phone] Encounter Details Date Type Department Care Team Description 12/09/2022 [facility] Medical Records [address] [place] [address] Social History Tobacco Use Types Packs/Day Years [...] on filedocumented in this encounter Care Teams Medical Staff Coordinator Relationship Specialty Start Date End Date Carlos Castañeda PA-C [address] [place] [address] PCP - General Internal Medicine 10/30/20 Haja Donahue MD [address] [place] [address] Internal Medicine 04/04/20 Brent Ellis MD [address] [place] [address] Ramp Jockey Cardiovascular Disease 07/16/20 Nicky Miller PA [address] [place] [address] Specialist Cardiology 02/06/21 11/11/23 Mark Acuña MD [address] [address] Specialist Cardiology 07/31/21 Nanette Wyatt PA-C [address] [address] Specialist Cardiology 07/31/21 Sunita Sanchez NP [address] [place] [address] Nurse Practitioner Cardiology 10/20/23 documented as of this encounter
--- OUTSIDE RECORDS SUMMARY | 2024-10-12 00:33 | XMS_ITS | Encounter Summary ---
Author Organization [facility] Address [address] [place] [address] Care Team Providers Care Managed Care Liaison Name Role Phone Haja Donahue MD Unavailable [phone] Brent Ellis MD Unavailable Carlos Castañeda PA-C Primary Care Provider [phone] Nicky Miller Unavailable Unavailable Mark Acuña MD Unavailable [phone] Nanette Wyatt PA-C Unavailable Sunita Sanchez NP Unavailable [phone] Encounter Details Date Type Department Care Team Description 11/19/2020 Transfer Records Medical Records [address] [place] [address] Abstract, Provider Social History Tobacco Use Types [...] on filedocumented in this encounter Care Teams Managed Care Liaison Relationship Specialty Start Date End Date Carlos Castañeda PA-C [address] [place] [address] PCP - General Internal Medicine 10/30/20 Haja Donahue MD [address] [place] [address] Internal Medicine 04/04/20 Brent Ellis MD [address] [place] [address] Corporate Auditor Cardiovascular Disease 07/16/20 Nicky Miller PA [address] [place] [address] Specialist Cardiology 02/06/21 11/11/23 Mark Acuña MD [address] [place] [address] Specialist Cardiology 07/31/21 Nanette Wyatt PA-C [address] [place] [address] Specialist Cardiology 07/31/21 Sunita Sanchez NP [address] [place] [address] Nurse Practitioner Cardiology 10/20/23 documented as of this encounter
--- OUTSIDE RECORDS SUMMARY | 2024-10-12 00:33 | XMS_ITS | Encounter Summary ---
Author Organization [facility] Address [address] [place] [address] Care Team Providers Care Pitching Coach Name Role Phone Haja Donahue MD Unavailable [phone] Brent Ellis MD Unavailable [phone] Carlos Castañeda PA-C Primary Care Provider [phone] Nicky Miller Unavailable Unavailable Mark Acuña MD Unavailable [phone] Nanette Wyatt PA-C Unavailable Sunita Sanchez NP Unavailable [phone] Reason for Visit * Reason Onset Date Comments Medication 10/30/2020 Encounter Details Date Type Department Care Team Description 10/30/2020 Telephone Adult Medicine [address] [phone] Carlos Castañeda PA-C [address] [place] [address] [phone] Medication Social History Tobacco Use Types Packs/Day Years [...] Miscellaneous Notes * Telephone Encounter - Carlos Castañeda PA-C - 11/01/2020 7:37 AM EDT Noted. * Telephone Encounter - Melchor Mendoza M.A. - 10/31/2020 3:48 PM EDT Pt states her neurologist took her off he felt she didn't need to be on it any more. She stopped taking it on the 21 of October. * Telephone Encounter - Carlos Castañeda PA-C - 10/30/2020 7:44 PM EDT Perhaps we could figure out who recommended this and why? Carlos Castañeda PA-C * Telephone Encounter - Shauna Ortega - 10/30/2020 3:26 PM EDT Pt called states she was told to be taken off her welbutrin and Dr. Castañeda can call pt if he hasany questions documented in this encounter Plan of Treatment Not on file documented as of this encounter Visit Diagnoses Not on filedocumented in this encounter Care Teams Pitching Coach Relationship Specialty Start Date End Date Carlos Castañeda PA-C [address] [place] [address] PCP - General Internal Medicine 10/30/20 Haja Donahue MD [address] [place] [address] Internal Medicine 04/04/20 Brent Ellis MD [address] [place] [address] [address] [place] [address] Network Director Cardiovascular Disease 07/16/20 Nicky Miller PA [address] [place] [address] Specialist Cardiology 02/06/21 11/11/23 Mark Acuña MD [address] [place] [address] Specialist Cardiology 07/31/21 Nanette Wyatt PA-C [address] [place] [address] Specialist Cardiology 07/31/21 Sunita Sanchez NP [address] [place] [address] Nurse Practitioner Cardiology 10/20/23 documented as of this encounter
--- OUTSIDE RECORDS SUMMARY | 2024-10-12 00:33 | XMS_ITS | Encounter Summary ---
Author Organization [facility] Address [address] [place] [address] Care Team Providers Care Aggregate Conveyor Operator Name Role Phone Minh Ferrell MD Primary Care Provider Un available Haja Donahue MD Primary Care Provider + [phone] Haja Donahue MD Primary Care Provider + [phone] Haja Donahue MD Unavailable [phone] Brent Ellis MD Unavailable [phone] Carlos Castañeda PA-C Primary Care Provider [phone] Nicky Miller Unavailable Unavailable Mark Acuña MD Unavailable Nanette Wyatt PA-C Unavailable Sunita Sanchez NP Unavailable [phone] Reason for Visit * Reason Onset Date Comments refill request 10/04/2018 Encounter Details Date Type Department Care Team Description 10/04/2018 Refill Adult Medicine [address] [address] Minh Ferrell MD refill request Social History [...] / Plan[place] / Product Type: MEDICARE [id number] documented in this encounter Plan of Treatment Not on file documented as of this encounter Visit Diagnoses Not on filedocumented in this encounter Care Teams Aggregate Conveyor Operator Relationship Specialty Start Date End Date Minh Ferrell MD PCP - General Internal Medicine 08/30/15 01/29/19 Haja Donahue MD [address] [place] [address] PCP - General Internal Medicine 01/30/19 04/03/20 Haja Donahue MD [address] [place] [address]47 PCP - General 04/04/20 10/29/20 Carlos Castañeda PA-C [address] [place] [address] PCP - General Internal Medicine 10/30/20 Haja Donahue MD [address] [place] [address] 29421 Internal Medicine 04/04/20 Brent Ellis MD [address] [place] [address] Ambulatory Nurse Cardiovascular Disease 07/16/20 Nicky Miller PA [address] [place] [address] Specialist Cardiology 02/06/21 11/11/23 Mark Acuña MD [address] [address] Specialist Cardiology 07/31/21 Nanette Wyatt PA-C [address] [address] Specialist Cardiology 07/31/21 Sunita Sanchez NP [address] [place] [address] Nurse Practitioner Cardiology 10/20/23 documented as of this encounter
--- OUTSIDE RECORDS SUMMARY | 2024-10-12 00:33 | XMS_ITS | Encounter Summary ---
Author Organization [facility] Address [address] [place] [address] Care Team Providers Care Supervisor Sintering Plant Name Role Phone Haja Donahue MD Primary Care Provider + [phone] Haja Donahue MD Primary Care Provider + [phone] Haja Donahue MD Unavailable +[phone] Brnet Ellis MD Unavailable [phone] Carlos Castañeda PA-C Primary Care Provider [phone] Nicky Miller Unavailable Unavailable Mark Acuña MD Unavailable +[phone] Nanette Wyatt PA-C Unavailable Sunita Sanchez NP Unavailable [phone] Reason for Visit * Reason Onset Date Comments refill request 04/11/2019 Encounter Details Date Type Department Care Team Description 04/11/2019 Refill Adult Medicine [address] [phone] Haja Donahue MD [address] [place] [address] [phone] refill request Social History Tobacco Use Types [...] N/A Patients current insurance carrier is: [place] / Plan[place] / Product Type: MEDICARE [id number] documented in this encounter Plan of Treatment Not on file documented as of this encounter Visit Diagnoses Not on filedocumented in this encounter Care Teams Supervisor Sintering Plant Relationship Specialty Start Date End Date Haja Donahue MD [address] [place] [address] PCP - General Internal Medicine 01/30/19 04/03/20 Haja Donahue MD [address] [place] [address]857 PCP - General 04/04/20 10/29/20 Carlos Castañeda PA-C [address] [place] [address] PCP - General Internal Medicine 10/30/20 Haja Donahue MD [address] [place] [address] 10762 Internal Medicine 04/04/20 Brent Ellis MD [address] [place] [address] Stone Paver Cardiovascular Disease 07/16/20 Nicky Miller PA [address] [place] [address] Specialist Cardiology 02/06/21 11/11/23 Mark Acuña MD [address] [place] [address]99 Specialist Cardiology 07/31/21 Nanette Wyatt PA-C [address] [place] [address] Specialist Cardiology 07/31/21 Sunita Sanchez NP [address] [place] [address] Nurse Practitioner Cardiology 10/20/23 documented as of this encounter
--- OUTSIDE RECORDS SUMMARY | 2024-10-12 00:33 | XMS_ITS | Encounter Summary ---
Author Organization [facility] Address [address] [place] [address] Care Team Providers Care Building Maintenance Superintendent Name Role Phone Haja Donahue MD Unavailable [phone] Brent Ellis MD Unavailable [phone] Carlos Castañeda PA-C Primary Care Provider +[phone] Nicky Miller Unavailable Unavailable Mark Acuña MD Unavailable [phone] Nanette Wyatt PA-C Unavailable Sunita Sanchez NP Unavailable [phone] Reason for Visit * Reason Onset Date Comments other 04/08/2021 other Encounter Details Date Type Department Care Team Description 04/08/2021 Telephone Cardio [facility] [address] [place] [address] [address] [place] [phone] Brent Ellis MD [address] [place] [address] Dr Jasvir [address] [place], [place] [phone] other (other) Social History Tobacco Use Types Packs/Day Years [...] have Coronavirus / COVID-19? No / Unsure 04/08/2021 9:53 AM EDT documented as of this encounter Miscellaneous Notes * Telephone Encounter - Karina Sharma - 04/09/2021 10:14 AM EDT Sent over a request for the records . TMM * Telephone Encounter - Dominic Francois NP - 04/08/2021 3:18 PM EDT Please call down there and obtain her hospital records including stress test, echo, ekg and consultation notes * Telephone Encounter - Sukhjinder Glover - 04/08/2021 2:39 PM EDT Patient is calling to state that [facility] needed to know what hospital she attended in [place], [place]. [facility]. Phone number [phone]. documented in this encounter Plan of Treatment Not on file documented as of this encounter Visit Diagnoses Not on filedocumented in this encounter Care Teams Building Maintenance Superintendent Relationship Specialty Start Date End Date Carlos Castañeda PA-C [address] [place] [address] PCP - General Internal Medicine 10/30/20 Haja Donahue MD [address] [place] [address] Internal Medicine 04/04/20 Brent Ellis MD [address] [place] [address] [place] [address] It Corporate Recruiter Cardiovascular Disease 07/16/20 Nicky Miller PA [address] [place] [address] Specialist Cardiology 02/06/21 11/11/23 Mark Acuña MD [address] [place] [address] Specialist Cardiology 07/31/21 Nanette Wyatt PA-C [address] [place] [address] Specialist Cardiology 07/31/21 Sunita Sanchez NP [address] [place] [address] Nurse Practitioner Cardiology 10/20/23 documented as of this encounter
--- OUTSIDE RECORDS SUMMARY | 2024-10-12 00:33 | XMS_ITS | Encounter Summary ---
Author Organization [facility] Address [address] [place] [address] Care Team Providers Care Hose Operator Name Role Phone Haja Donahue MD Primary Care Provider + [phone] Haja Donahue MD Primary Care Provider + [phone] Haja Donahue MD Unavailable +[phone] Brent Ellis MD Unavailable [phone] Carlos Castañeda PA-C Primary Care Provider [phone] Nicky Miller Unavailable Unavailable Mark Acuña MD Unavailable +[phone] Nanette Wyatt PA-C Unavailable Sunita Sanchez NP Unavailable [phone] Encounter Details Date Type Department Care Team Description 04/24/2019 Hospital Medical Records [address] [place] [address] Social History Tobacco Use Types Packs/Day Years [...] on filedocumented in this encounter Care Teams Hose Operator Relationship Specialty Start Date End Date Haja Donahue MD [address] [place] [address] PCP - General Internal Medicine 01/30/19 04/03/20 Haja Donahue MD [address] [place] [address] PCP - General 04/04/20 10/29/20 Carlos Castañeda PA-C [address] [place] [address] PCP - General Internal Medicine 10/30/20 Haja Donahue MD [address] [place] [address] 21237 Internal Medicine 04/04/20 Brent Ellis MD [address] [place] [address] Naturopathic Doctor Cardiovascular Disease 07/16/20 Nicky Miller PA [address] [place] [address] Specialist Cardiology 02/06/21 11/11/23 Mark Acuña MD [address] [address] Specialist Cardiology 07/31/21 Nanette Wyatt PA-C [address] [address] Specialist Cardiology 07/31/21 Sunita Sanchez NP [address] [place] [address] Nurse Practitioner Cardiology 10/20/23 documented as of this encounter
--- OUTSIDE RECORDS SUMMARY | 2024-10-12 00:34 | XMS_ITS | Encounter Summary ---
Author Organization [facility] Address [address] [place] [address] Care Team Providers Care Haulage Engine Operator Name Role Phone Haja Donahue MD Unavailable [phone] Brent Ellis MD Unavailable [phone] Carlos Castañeda PA-C Primary Care Provider [phone] Mark Acuña MD Unavailable [phone] Nanette Wytat PA-C Unavailable Sunita Sanchez NP Unavailable [phone] Encounter Details Date Type Department Care Team Description 02/29/2024 Orders Only Medical Records [address] [place] [address] Sunita Sanchez, LASHANDA [address] [place] [address] Social History Tobacco Use Types Packs/Day Years [...] Name Priority Date/Time Associated Diagnosis Comments OUTSIDE CT Routine 01/27/2024 documented in this encounter Results * OUTSIDE CT (01/27/2024) Sunita Sanchez NP RADIOLOGY documented in this encounter Visit Diagnoses Not on filedocumented in this encounter Care Teams Haulage Engine Operator Relationship Specialty Start Date End Date Carlos Castañeda PA-C [address] [place] [address] PCP - General Internal Medicine 10/30/20 Haja Donahue MD [address] [place], [place] [phone] Internal Medicine 04/04/20 Brent Ellis MD [address] [place] [address] Air Analyst Cardiovascular Disease 07/16/20 Mark Acuña MD [address] [place] [address] Specialist Cardiology 07/31/21 Nanette Wyatt PA-C [address] [facility] 154 [place] [address] Specialist Cardiology 07/31/21 Sunita Sanchez NP [address] [place] [address] Nurse Practitioner Cardiology 10/20/23 documented as of this encounter
--- OUTSIDE RECORDS SUMMARY | 2024-10-12 00:34 | XMS_ITS | Encounter Summary ---
Author Organization [employer] [facility] Address [address] [place] [address] Care Team Providers Care Director Life Sciences Name Role Phone Haja Donahue MD Unavailable [phone] Brent Ellis MD Unavailable [phone] Carlos Castañeda PA-C Primary Care Provider [phone] Mark Acuña MD Unavailable [phone] Nanette Wyatt PA-C Unavailable Sunita Sanchez NP Unavailable [phone] Encounter Details Date Type Department Care Team Description 11/23/2023 [facility] Medical Records [address] [place], [place] [address] [place] [address] Social History Tobacco Use Types Packs/Day Years [...] on filedocumented in this encounter Care Teams Director Life Sciences Relationship Specialty Start Date End Date Carlos Castañeda PA-C [address] [place] [address] PCP - General Internal Medicine 10/30/20 Haja Donahue MD [address] [place] [address] Internal Medicine 04/04/20 Brent Ellis MD [address] [place] [address] Revenue Officer Cardiovascular Disease 07/16/20 Mark Acuña MD [address] [address] Specialist Cardiology 07/31/21 Nanette Wyatt PA-C [facility] [address] [place] [address] Specialist Cardiology 07/31/21 Sunita Sanchez NP [address] [place] [address] Nurse Practitioner Cardiology 10/20/23 documented as of this encounter
--- OUTSIDE RECORDS SUMMARY | 2024-10-12 00:34 | XMS_ITS | Encounter Summary ---
Author Organization [facility] Address [address] [place] [address] Care Team Providers Care Inseam Trimming Machine Operator Name Role Phone Haja Donahue MD Primary Care Provider [phone] Haja Donahue MD Unavailable Brent Ellis MD Unavailable [phone] Carlos Castañeda PA-C Primary Care Provider Nicky Miller Unavailable Unavailable Mark Acuañ MD Unavailable [phone] Nanette Wyatt PA-C Unavailable Sunita Sanchez NP Unavailable [phone] Reason for Referral * (Routine) - Authorized/Booked Specialty Diagnoses / Procedures Referred By Contac t Referred To Contact Cardiology Diagnoses Syncope, unspecified syncope type Procedures REFERRAL TO CARDIOLOGY Haja Donahue MD [address] [place] [address] External Cardiology Referral ID Status Reason Start Date Expiration Date V isits Requested Visits Authorized SEE NOTE Authorized/B ooked 04/30/2020 08/03/2020 1 1 Encounter Details Date Type Department Care Team Description 04/30/2020 Orders Only Cardio PVC [facility] [address] [facility] [address] [place] [address] Haja Donahue MD [address] [place] [address] Syncope, unspecified syncope type (Primary Dx) Social History Tobacco Use Types Packs/Day Years Used Date Smoking Tobacco: Never Assessed Alcohol Habits Answer Date Recorded How often [...] have Coronavirus / COVID-19? No / Unsure 04/02/2020 9:43 AM EDT documented as of this encounter Plan of Treatment Not on file documented as of this encounter Visit Diagnoses Diagnosis Syncope, unspecified syncope type- Primary documented in this encounter Care Teams Inseam Trimming Machine Operator Relationship Specialty Start Date End Date Haja Donahue MD [address] [place] [address] PCP - General 04/04/20 10/29/20 Carlos Castañeda PA-C [address] [place] [address] PCP - General Internal Medicine 10/30/20 Haja Donahue MD [address] [place] [address] Internal Medicine 04/04/20 Brent Ellis MD [address] [place] [address] [place] [address] Curriculum Development Coordinator Cardiovascular Disease 07/16/20 Nicky Miller PA [address] [place] [address] Specialist Cardiology 02/06/21 11/11/23 Mark Acuña MD [facility] [address] [place] [address] Specialist Cardiology 07/31/21 Nanette Wyatt PA-C [address] [place] [address] Specialist Cardiology 07/31/21 Sunita Sanchez NP [address] [place] [address] 410 [place] [address] Nurse Practitioner Cardiology 10/20/23 documented as of this encounter
--- OUTSIDE RECORDS SUMMARY | 2024-10-12 00:34 | XMS_ITS | Encounter Summary ---
Author Organization [facility] Address [address] [place] [address] Care Team Providers Care Experimental Electronics Developer Name Role Phone Carlos Castañeda Primary Care Provider [phone] Encounter Details Date Type Department Care Team ([facility] st Contact Info) Description 09/20/2024 Telephone [facility] [address] [facility] [address] [place] [address] Sona Nieves MA Social History Tobacco Use Types Packs/Day Years [...] as of this encounter Progress Notes * Hugh Joshua - 09/29/2024 9:14 AM EDT Spoke to patient again and she will call back to book an appointment. * Hugh Joshua - 09/21/2024 2:44 PM EDT Spoke to patient and she will call back to schedule an appointment. * Sona Nieves MA - 09/20/2024 12:05 PM EDT Please book patient for an appointment with SL or LM to discuss ILR removal. Her implanted loop recorder has reached the end of its battery life. documented in this encounter Plan of Treatment Not on file documented as of this encounter Visit Diagnoses Not on filedocumented in this encounter Care Teams Experimental Electronics Developer Relationship Specialty Start Date End Date Carlos Castañeda PA [address] [place] [address] PCP - General Internal Medicine 04/17/24 documented as of this encounter
--- OUTSIDE RECORDS SUMMARY | 2024-10-12 00:34 | XMS_ITS | Encounter Summary ---
Author Organization [facility] Address [address] [place] [address] Care Team Providers Care Church Administrator Name Role Phone Haja Donahue MD Unavailable [phone] Brent Ellis MD Unavailable [phone] Carlos Castañeda PA-C Primary Care Provider Nicky Miller Unavailable Unavailable Mark Acuña MD Unavailable [phone] Nanette Wyatt PA-C Unavailable Sunita Sanchez NP Unavailable [phone] Encounter Details Date Type Department Care Team Description 07/14/2023 Orders Only Medical Records [address] [place] [address] Carlos Castañeda PA-C [address] [place], [place] [phone] Social History Tobacco Use Types Packs/Day Years [...] on filedocumented in this encounter Care Teams Church Administrator Relationship Specialty Start Date End Date Carlos Castañeda PA-C [address] [place] [address] PCP - General Internal Medicine 10/30/20 Haja Donahue MD [address] [place] [address] Internal Medicine 04/04/20 Brent Ellis MD [address] [place] [address] Hot Box Checker Cardiovascular Disease 07/16/20 Nicky Miller PA 444 [place] [address] Specialist Cardiology 02/06/21 11/11/23 Mark Acuña MD [address] [facility] 154 [place] [address] Specialist Cardiology 07/31/21 Nanette Wyatt PA-C [address] [facility] 154 [place] [address] Specialist Cardiology 07/31/21 Sunita Sanchez NP [address] [place] [address] Nurse Practitioner Cardiology 10/20/23 documented as of this encounter
--- OUTSIDE RECORDS SUMMARY | 2024-10-12 00:34 | XMS_ITS | Encounter Summary ---
Author Organization [facility] Address [address] [place] [address] Care Team Providers Care Veterinary Virologist Name Role Phone Minh Ferrell MD Primary Care Provider Un available Haja Donahue MD Primary Care Provider + [phone] Haja Donahue MD Primary Care Provider + [phone] Haja Donahue MD Unavailable [phone] Brent Ellis MD Unavailable [phone] Carlos Castañeda PA-C Primary Care Provider [phone] Nicky Miller Unavailable Unavailable Mark Acuña MD Unavailable Nanette Wyatt PA-C Unavailable Sunita Sanchez NP Unavailable [phone] Reason for Visit * Reason Onset Date Comments Faxed Order 07/28/2016 Encounter Details Date Type Department Care Team Description 07/28/2016 Telephone Adult Medicine [address] [phone] Minh Ferrell MD Faxed Order Social History Tobacco Use Types Packs/Day Years [...] encounter Miscellaneous Notes * Telephone Encounter - Gloria Lock - 07/28/2016 3:08 PM EST Please sign and return To [facility] documented in this encounter Plan of Treatment Not on file documented as of this encounter Visit Diagnoses Not on filedocumented in this encounter Care Teams Veterinary Virologist Relationship Specialty Start Date End Date Minh Ferrell MD PCP - General Internal Medicine 08/30/15 01/29/19 Haja Donahue MD [address] [place] [address] PCP - General Internal Medicine 01/30/19 04/03/20 Haja Donahue MD [address] [place] [address] PCP - General 04/04/20 10/29/20 Carlos Castañeda PA-C [address] [place] [address] PCP - General Internal Medicine 10/30/20 Haja Donahue MD [address] [place] [address] Internal Medicine 04/04/20 Brent Ellis MD [address] [place] [address] [place] [address] Treating And Pumping Supervisor Cardiovascular Disease 07/16/20 Nicky Miller PA [address] [place] [address] Specialist Cardiology 02/06/21 11/11/23 Mark Acuña MD [address] [place] [address] Specialist Cardiology 07/31/21 Nanette Wyatt PA-C [address] [place] [address] Specialist Cardiology 07/31/21 Sunita Sanchez NP [address] [place] [address] Nurse Practitioner Cardiology 10/20/23 documented as of this encounter
--- OUTSIDE RECORDS SUMMARY | 2024-10-12 00:34 | XMS_ITS | Encounter Summary ---
Author Organization [facility] Address [address] [place] [address] Care Team Providers Care Area Operations Director Name Role Phone Haja Donahue MD Unavailable [phone] Brent Ellis MD Unavailable [phone] Carlos Castañeda PA-C Primary Care Provider [phone] Nicky Miller Unavailable Unavailable Mark Acuña MD Unavailable [phone] Nanette Wyatt PA-C Unavailable Sunita Sanchez NP Unavailable [phone] Encounter Details Date Type Department Care Team Description 08/22/2021 Humanities Instructor Report Medical Records [address] [place] [address] Abstract, Provider Social History Tobacco Use Types [...] on filedocumented in this encounter Care Teams Area Operations Director Relationship Specialty Start Date End Date Carlos Castañeda PA-C [address] [place] [address] PCP - General Internal Medicine 10/30/20 Haja Donahue MD [address] [place] [address] Internal Medicine 04/04/20 Brent Ellis MD [address] [place] [address] Chemistry Research Assistant Cardiovascular Disease 07/16/20 Nicky Miller PA [address] [place] [address] Specialist Cardiology 02/06/21 11/11/23 Mark Acuña MD [address] [place] [address] Specialist Cardiology 07/31/21 Nanette Wyatt PA-C [address] [address] Specialist Cardiology 07/31/21 Sunita Sanchez NP [address] [place] [address] Nurse Practitioner Cardiology 10/20/23 documented as of this encounter
--- OUTSIDE RECORDS SUMMARY | 2024-10-12 00:34 | XMS_ITS | Encounter Summary ---
Author Organization [facility] Address [address] [place] [address] Care Team Providers Care Radiotelegraph Operator Name Role Phone Haja Donahue MD Primary Care Provider [phone] Haja Donahue MD Unavailable [phone] Brent Ellis MD Unavailable [phone] Carlos Castañeda PA-C Primary Care Provider [phone] Nicky Miller Unavailable Unavailable Mark Acuña MD Unavailable [phone] Nanette Wyatt PA-C Unavailable Sunita Sanchez NP Unavailable [phone] Reason for Visit * Reason Comments E-prescribe Rx Request Encounter Details Date Type Department Care Team Description 06/05/2020 Refill Adult Medicine [address] [phone] Haja Donahue MD [address] [place] [address] [phone] E-prescribe Rx Request Social History Tobacco Use [...] have Coronavirus / COVID-19? No / Unsure 05/07/2020 9:52 AM EST documented as of this encounter Miscellaneous Notes * Telephone Encounter - Penelope Hawkins M.A. - 06/05/2020 1:28 PM EST Please review levothyroxine dosing Lab Results Component Value Date TSH 1.04 11/07/2019 Lab Results Component Value Date NA 138 11/07/2019 K 5.1 11/07/2019 CO2 23 11/07/2019 CL 109 11/07/2019 BUN 24 11/07/2019 CREAT 1.32 11/07/2019 GLU 84 11/07/2019 CA 9.1 11/07/2019 GFR 41 11/07/2019 * Telephone Encounter - Connie Sharma - 06/05/2020 8:30 AM EST Patient would like script to be: E-PRESCRIBED/FAXED TO PHARMACY WHEN WAS THE PATIENT'S LAST APPOINTMENT IN ADULT MEDICINE? 04/02/2020 WHEN WAS THE LAST TIME THE PATIENT SAW THEIR PCP? Does patient have an upcoming appointment? Yes 06/15/20 (THE MEDICATION REQUESTED IS ON THE MED LIST ABOVE) All of the medications requested were on the CURRENT MEDS list Did you check the Pharmacy information above?: YES Patient wants: 30 -day supply Is this a mail order prescription request ? YES If the refill is from a FAXED refill request what is the RX # listed on the fax? N/A Patients current insurance carrier is: [place] / [place] / Product Type: MED[place]ARE [id number] documented in this encounter Plan of Treatment Not on file documented as of this encounter Visit Diagnoses Not on filedocumented in this encounter Care Teams Radiotelegraph Operator Relationship Specialty Start Date End Date Haja Donahue MD [address] [place] [address] PCP - General 04/04/20 10/29/20 Carlos Castañeda PA-C [address] [place] [address] PCP - General Internal Medicine 10/30/20 Haja Donahue MD [address] [place] [address] Internal Medicine 04/04/20 Brent Ellis MD [address] [place] [address] Hand Tool Filer Cardiovascular Disease 07/16/20 Nicky Miller PA [address] [place] [address] Specialist Cardiology 02/06/21 11/11/23 Mark Acuña MD [address] [place] [address] Specialist Cardiology 07/31/21 Nanette Wyatt PA-C [address] [address] Specialist Cardiology 07/31/21 Sunita Sanchez NP [address] [place] [address] Nurse Practitioner Cardiology 10/20/23 documented as of this encounter
--- OUTSIDE RECORDS SUMMARY | 2024-10-12 00:34 | XMS_ITS | Encounter Summary ---
Author Organization [facility] Address [address] [place] [address] Care Team Providers Care Library Media Specialist Name Role Phone Haja Donahue MD Primary Care Provider + [phone] Haja Donahue MD Unavailable [phone] Brent Ellis MD Unavailable [phone] Carlos Castañeda PA-C Primary Care Provider [phone] Nicky Miller Unavailable Unavailable Mark Acuña MD Unavailable [phone] Nanette Wyatt PA-C Unavailable Sunita Sanchez NP Unavailable [phone] Reason for Visit * Reason Onset Date Comments Fall 09/09/2020 Pt fell over wee kend Encounter Details Date Type Department Care Team Description 09/09/2020 Telephone Cardio PVC [facility] [address] [place] [address] [address] [place] [address] Brent Ellis MD [address] [place] [address] Dr [address] [place], [place] [phone] Fall (Pt fell over weekend) Social History [...] forevaluation. Secondly I let her know that [facility] would be in touch with AOP [...] BP was 110/55. Pt canbe reached at [phone] documented in this encounter Plan of Treatment Not on file documented as of this encounter Visit Diagnoses Not on filedocumented in this encounter Care Teams Library Media Specialist Relationship Specialty Start Date End Date Haja Donahue MD [address] [place] [address] PCP - General 04/04/20 10/29/20 Carlos Castañeda PA-C [address] [place] [address] PCP - General Internal Medicine 10/30/20 Haja Donahue MD [address] [place] [address] Internal Medicine 04/04/20 Brent Ellis MD [address] [place] [address] Demolitionist Cardiovascular Disease 07/16/20 Nicky Miller PA [address] [place] [address] Specialist Cardiology 02/06/21 11/11/23 Mark Acuña MD [address] [place] [address] Specialist Cardiology 07/31/21 Nanette Wyatt PA-C [address] [address] Specialist Cardiology 07/31/21 Sunita Sanchez NP [address] [place] [address] Nurse Practitioner Cardiology 10/20/23 documented as of this encounter
--- OUTSIDE RECORDS SUMMARY | 2024-10-12 00:34 | XMS_ITS | Encounter Summary ---
Author Organization [facility] Address [address] [place] [address] Care Team Providers Care Hospitality Manager Name Role Phone Haja Donahue MD Unavailable [phone] Brent Ellis MD Unavailable [phone] Carlos Castañeda PA-C Primary Care Provider [phone] Nicky Miller Unavailable Unavailable Mark Acuña MD Unavailable [phone] Nanette Wyatt PA-C Unavailable Sunita Sanchez NP Unavailable [phone] Encounter Details Date Type Department Care Team Description 08/09/2023 Wardsperson Report Medical Records [address] [place] [address] Manpreet Luke MD Social History Tobacco Use Types Packs/Day [...] on filedocumented in this encounter Care Teams Hospitality Manager Relationship Specialty Start Date End Date Carlos Castañeda PA-C [address] [place] [address] PCP - General Internal Medicine 10/30/20 Haja Donahue MD [address] [place] [address] Internal Medicine 04/04/20 Brent Ellis MD [address] [place] [address] Agricultural Economics Professor Cardiovascular Disease 07/16/20 Nicky Miller PA [address] [place] [address] Specialist Cardiology 02/06/21 11/11/23 Mark Acuña MD [address] [address] Specialist Cardiology 07/31/21 Nanette Wyatt PA-C [address] [address] Specialist Cardiology 07/31/21 Sunita Sanchez NP [address] [place] [address] Nurse Practitioner Cardiology 10/20/23 documented as of this encounter
--- OUTSIDE RECORDS SUMMARY | 2024-10-12 00:34 | XMS_ITS | Encounter Summary ---
Author Organization [facility] Address [address] [place] [address] Care Team Providers Care Grain Elevator Superintendent Name Role Phone Minh Ferrell MD Primary Care Provider Un available Haja Donahue MD Primary Care Provider + [phone] Haja Donahue MD Primary Care Provider + [phone] Haja Donahue MD Unavailable [phone] Brent Ellis MD Unavailable [phone] Carlos Castañeda PA-C Primary Care Provider [phone] Nicky Miller Unavailable Unavailable Mark Acuña MD Unavailable Nanette Wyatt PA-C Unavailable Sunita Sanchez NP Unavailable [phone] Encounter Details Date Type Department Care Team Description 08/19/2016 Business Doc Medical Records [address] [place] [address] Abstract, Provider Social History Tobacco Use Types [...] on filedocumented in this encounter Care Teams Grain Elevator Superintendent Relationship Specialty Start Date End Date Minh Ferrell MD PCP - General Internal Medicine 08/30/15 01/29/19 Haja Donahue MD [address] [place] [address] PCP - General Internal Medicine 01/30/19 04/03/20 Haja Donahue MD [address] [place] [address] PCP - General 04/04/20 10/29/20 Carlos Castañeda PA-C [address] [place] [address] PCP - General Internal Medicine 10/30/20 Haja Donahue MD [address] [place] [address] Internal Medicine 04/04/20 Brent lElis MD [address] [place] [address] Resident Associate Cardiovascular Disease 07/16/20 Nicky Miller PA [address] [place] [address] Specialist Cardiology 02/06/21 11/11/23 Mark Acuña MD [address] [address] Specialist Cardiology 07/31/21 Nanette Wyatt PA-C [address] [address] Specialist Cardiology 07/31/21 Sunita Sanchez NP [address] [place] [address] Nurse Practitioner Cardiology 10/20/23 documented as of this encounter
--- OUTSIDE RECORDS SUMMARY | 2024-10-12 00:34 | XMS_ITS | Encounter Summary ---
Author Organization [facility] Address [address] [place] [address] Care Team Providers Care Fiber Product Cutting Machine Operator Name Role Phone Haja Donahue MD Unavailable [phone] Brent Ellis MD Unavailable [phone] Carlos Castañeda PA-C Primary Care Provider [phone] Nicky Miller Unavailable Unavailable Mark Acuña MD Unavailable [phone] Nanette Wyatt PA-C Unavailable Sunita Sanchez NP Unavailable [phone] Encounter Details Date Type Department Care Team Description 12/11/2021 [facility] Medical Records [address] [place] [address] Social History Tobacco Use Types Packs/Day Years [...] Date/Time Associated Diagnosis Comments OUTSIDE EKG Routine 12/12/2021 OUTSIDE PLAIN FILM Routine 12/11/2021 documented in this encounter Results * OUTSIDE EKG (12/12/2021) Provider Abstract CARDIOLOGY * OUTSIDE PLAIN FILM (12/11/2021) Provider Abstract RADIOLOGY documented in this encounter Visit Diagnoses Not on filedocumented in this encounter Care Teams Fiber Product Cutting Machine Operator Relationship Specialty Start Date End Date Carlos Castañeda PA-C [address] [place] [address] PCP - General Internal Medicine 10/30/20 Haja Donahue MD [address] [place] [address] Internal Medicine 04/04/20 Brent Ellis MD [address] [place] [address] Fruit Grader Cardiovascular Disease 07/16/20 Nicky Miller PA [address] [place] [address] Specialist Cardiology 02/06/21 11/11/23 Mark Acuña MD [address] [place] [address] Specialist Cardiology 07/31/21 Nanette Wyatt PA-C [address] [facility] [address] [place] [address] Specialist Cardiology 07/31/21 Sunita Sanchez NP [address] [place] [address] Nurse Practitioner Cardiology 10/20/23 documented as of this encounter
--- OUTSIDE RECORDS SUMMARY | 2024-10-12 00:34 | XMS_ITS | Encounter Summary ---
Author Organization [facility] Address [address] [place] [address] Care Team Providers Care Flying Shear Operator Name Role Phone Haja Donahue MD Primary Care Provider + [phone] Haja Donahue MD Primary Care Provider + [phone] Haja Donahue MD Unavailable [phone] Brent Ellis MD Unavailable [phone] Carlos Castañeda PA-C Primary Care Provider +[phone] Nicky Miller Unavailable Unavailable Mark Acuña MD Unavailable +[phone] Nanette Wyatt PA-C Unavailable Sunita Sanchez NP Unavailable [phone] Encounter Details Date Type Department Care Team Description 02/28/2020 Hospital Medical Records [address] [place] [address] [facility] Social History Tobacco Use Types Packs/Day [...] on filedocumented in this encounter Care Teams Flying Shear Operator Relationship Specialty Start Date End Date Haja Donahue MD [address] [place] [address] PCP - General Internal Medicine 01/30/19 04/03/20 Haja Donahue MD [address] [place] [address] PCP - General 04/04/20 10/29/20 Carlos Castañeda PA-C [address] [place] [address] PCP - General Internal Medicine 10/30/20 Haja Donahue MD [address] [place] [address]14 Internal Medicine 04/04/20 Brent Ellis MD [address] [place] [address] Independent Producer Cardiovascular Disease 07/16/20 Nicky Miller PA [address] [place] [address] Specialist Cardiology 02/06/21 11/11/23 Mark Acuña MD [address] [address] Specialist Cardiology 07/31/21 Nanette Wyatt PA-C [address] [address] Specialist Cardiology 07/31/21 Sunita Sanchez NP [address] [place] [address]34 Nurse Practitioner Cardiology 10/20/23 documented as of this encounter
--- OUTSIDE RECORDS SUMMARY | 2024-10-12 00:34 | XMS_ITS | Encounter Summary ---
Author Organization [facility] Address [address] [place] [address] Care Team Providers Care Teletypewriter Operator Name Role Phone Minh Ferrell MD Primary Care Provider Un available Haja Donahue MD Primary Care Provider + [phone] Haja Donahue MD Primary Care Provider + [phone] Haja Donahue MD Unavailable Brent Ellis MD Unavailable +[phone] Carlos Castañeda PA-C Primary Care Provider +[phone] Nicky Miller Unavailable Unavailable Mark Acuña MD Unavailable [phone] Nanette Wyatt PA-C Unavailable Sunita Sanchez NP Unavailable [phone] Encounter Details Date Type Department Care Team Description 08/02/2017 Pt. Non Urgent Medical Question Adult Medicine [address] [id number] Elver Mustafa PA-C [address] [place] [address] [phone] Social History Tobacco Use Types Packs/Day Years [...] Tsang M.A. - 08/02/2017 9:33 AM ESTFrom: Lauren Lemos To: Elver Mustafa PA-C Sent: 08/02/2017 [...] on filedocumented in this encounter Care Teams Teletypewriter Operator Relationship Specialty Start Date End Date Minh Ferrell MD PCP - General Internal Medicine 08/30/15 01/29/19 Haja Donahue MD [address] [place] [address] PCP - General Internal Medicine 01/30/19 04/03/20 Haja Donahue MD [address] [place] [address] PCP - General 04/04/20 10/29/20 Carlos Castañeda PA-C [address] [place] [address] PCP - General Internal Medicine 10/30/20 Haja Donahue MD [address] [place] [address] Internal Medicine 04/04/20 Brent Ellis MD [address] [place] [address] Orthodontic Laboratory Technician Cardiovascular Disease 07/16/20 Nicky Miller PA [address] [place] [address] Specialist Cardiology 02/06/21 11/11/23 Mark Acuña MD [address] [place] [address] Specialist Cardiology 07/31/21 Nanette Wyatt PA-C [address] [place] [address] Specialist Cardiology 07/31/21 Sunita Sanchez NP [address] [place] [address] Nurse Practitioner Cardiology 10/20/23 documented as of this encounter
--- OUTSIDE RECORDS SUMMARY | 2024-10-12 00:34 | XMS_ITS | Encounter Summary ---
Author Organization [facility] Address [address] [place] [address] Care Team Providers Care Detective Precinct Name Role Phone Haja Donahue MD Unavailable [phone] Brent Ellis MD Unavailable [phone] Carlos Castañeda PA-C Primary Care Provider +[phone] Nicky Miller Unavailable Unavailable Mark Acuña MD Unavailable [phone] Nanette Wyatt PA-C Unavailable Sunita Sanchez NP Unavailable [phone] Encounter Details Date Type Department Care Team Description 07/25/2021 [facility] Medical Records [address] [place] [id number] [place] [address] Social History Tobacco Use Types Packs/Day Years [...] on filedocumented in this encounter Care Teams Detective Precinct Relationship Specialty Start Date End Date Carlos Castañeda PA-C [address] [place] [address] PCP - General Internal Medicine 10/30/20 Haja Donahue MD [address] [place] [address] Internal Medicine 04/04/20 Brent Ellis MD [address] [place] [address] Dry Cleaner Helper Cardiovascular Disease 07/16/20 Nicky Miller PA [address] [place] [address] Specialist Cardiology 02/06/21 11/11/23 Mark Acuña MD [address] [address] Specialist Cardiology 07/31/21 Nanette Wyatt PA-C [address] [address] Specialist Cardiology 07/31/21 Sunita Sanchez NP [address] [place] [address] Nurse Practitioner Cardiology 10/20/23 documented as of this encounter
--- OUTSIDE RECORDS SUMMARY | 2024-10-12 00:34 | XMS_ITS | Clinical Summary ---
Author Organization [facility] Address [address] [place] [address] Phone Care Team Providers Care Hand Trimmer Name Role Phone Haja Donahue MD Primary Care Provider Unavaila ble Allergies Active Allergy Reactions Criticality Noted Date Comments Gluten Meal 02/01/2018 Gluten allergy Mushroom Extract Complex (Obsolete) 09/26/2015 Throat closes Medications acetaminophen-c odeine (TYLENOL [...] 2 recent episodes occur in the home service advisor right after getting out of bed, we have to consider the possibility of orthostatic hypotension. I would instruct the patient to monitor her blood pressure at home in the home service advisor to determine if she is having any [...] Comments Breast Cancer Screening 1957 Pneumococcal Vaccine: 50+ Years (1 of 2 - PCV) 1976 Colorectal Cancer Screening: Annual FOBT 2006 Colorectal Cancer Screening: Colonoscopy 2006 Colorectal Cancer Screening: Sigmoidoscopy 2006 Influenza Vaccine (Season Ended) 2025 02/12/2021, 02/12/2021, 05/05/2018 Hepatitis B Vaccine Aged Out No longe r eligible based on patient's age to complete this topic Insurance [address] [place] [address] Medicaid [place] Member Subscriber Plan / Payer (Ef fective 2020-Present) Name:Lauren Lemos Relation to Subscriber:Self Name:Lauren Lemos Payer ID:Not on file Group ID:Not on file Type:Not on file Address: [address] [facility] Member Subscriber Plan / Payer (Ef fective 2022-Present) Name:Lauren Lemos Relation to Subscriber:Self Name:Lauren Lemos Payer ID:[id number] (NAIC) Group ID:Not on file Type:Not on file Address: [place] [phone] [place] [address] [place] [facility] Care Teams Hand Trimmer Relationship Specialty Start Date End Date Haja Doanhue MD PCP - General Internal Medicine 07/15/20
--- OUTSIDE RECORDS SUMMARY | 2024-10-12 00:34 | XMS_ITS | Encounter Summary ---
Author Organization [facility] Address [address] [place] [address] Care Team Providers Care Soap Drier Tender Name Role Phone Haja Donahue MD Unavailable [phone] Brent Ellis MD Unavailable [phone] Carlos Castañeda PA-C Primary Care Provider [phone] Nicky Miller Unavailable Unavailable Mark Acuña MD Unavailable [phone] Nanette Wyatt PA-C Unavailable Sunita Sanchez NP Unavailable [phone] Encounter Details Date Type Department Care Team Description 05/02/2023 [facility] Medical Records [address] [place] [address] Janette Little PA-C Social History Tobacco Use [...] on filedocumented in this encounter Care Teams Soap Drier Tender Relationship Specialty Start Date End Date Carlos Casatñeda PA-C [address] [place] [address] PCP - General Internal Medicine 10/30/20 Haja Donahue MD [address] [place] [address] Internal Medicine 04/04/20 Brent Ellis MD [address] [place] [address] Product Marketer Cardiovascular Disease 07/16/20 Nicky Miller PA [address] [place] [address] Specialist Cardiology 02/06/21 11/11/23 Mark Acuña MD [address] [place] [address] Specialist Cardiology 07/31/21 Nanette Wyatt PA-C [address] [place] [address] Specialist Cardiology 07/31/21 Sunita Sanchez NP [address] [place] [address] Nurse Practitioner Cardiology 10/20/23 documented as of this encounter
--- OUTSIDE RECORDS SUMMARY | 2024-10-12 00:34 | XMS_ITS | Encounter Summary ---
Author Organization [facility] Address [address] [place] [address] Care Team Providers Care Cream Dipper Name Role Phone Haja Donahue MD Primary Care Provider + [phone] Haja Donahue MD Unavailable [phone] Brent Ellis MD Unavailable [phone] Carlos Castañeda PA-C Primary Care Provider +[phone] Nicky Miller Unavailable Unavailable Mark Acuña MD Unavailable [phone] Nanette Wyatt PA-C Unavailable Sunita Sanchez NP Unavailable [phone] Encounter Details Date Type Department Care Team Description 06/20/2020 Diabetes Nurse Report Medical Records [address] [place] [address] Felipe Posadas PA-C Social History Tobacco Use [...] on filedocumented in this encounter Care Teams Cream Dipper Relationship Specialty Start Date End Date Haja Donahue MD [address] [place] [address] PCP - General 04/04/20 10/29/20 Carlos Castañeda PA-C [address] [place] [address] PCP - General Internal Medicine 10/30/20 Haja Donahue MD [address] [place] [address] Internal Medicine 04/04/20 Brent Ellis MD [address] [place] [address] Microsoft Office Instructor Cardiovascular Disease 07/16/20 Nicky Miller PA [address] [place] [address] Specialist Cardiology 02/06/21 11/11/23 Mark Acuña MD [address] [address] Specialist Cardiology 07/31/21 Nanette Wyatt PA-C [address] [facility] [address] [place] [address] Specialist Cardiology 07/31/21 Sunita Sanchez NP [address] [place] [address] Nurse Practitioner Cardiology 10/20/23 documented as of this encounter
--- OUTSIDE RECORDS SUMMARY | 2024-10-12 00:34 | XMS_ITS | Encounter Summary ---
Author Organization [facility] Address [address] [place] [address] Care Team Providers Care Automation Control Integrator Name Role Phone Haja Donahue MD Unavailable [phone] Brent Ellis MD Unavailable [phone] Carlos Castañeda PA-C Primary Care Provider [phone] Nicky Miller Unavailable Unavailable Mark Acuña MD Unavailable [phone] Nanette Wyatt PA-C Unavailable Sunita Sanchez NP Unavailable [phone] Reason for Visit * Reason Onset Date Comments other 06/16/2022 Encounter Details Date Type Department Care Team Description 06/16/2022 Telephone Cardio [facility] [address] [facility] [address] [place] [address] Nicky Miller PA other Social History Tobacco [...] on filedocumented in this encounter Care Teams Automation Control Integrator Relationship Specialty Start Date End Date Carlos Castañeda PA-C [address] [place] [address] PCP - General Internal Medicine 10/30/20 Haja Donahue MD [address] [place] [address] Internal Medicine 04/04/20 Brent Ellis MD [address] [place] [address] Wire Stitcher Machine Cardiovascular Disease 07/16/20 Nicky Miller PA [address] [place] [address] Specialist Cardiology 02/06/21 11/11/23 Mark Acuña MD [address] [address] Specialist Cardiology 07/31/21 Nanette Wyatt PA-C [address] [address] Specialist Cardiology 07/31/21 Sunita Sanchez NP [address] [place] [address] Nurse Practitioner Cardiology 10/20/23 documented as of this encounter
--- OUTSIDE RECORDS SUMMARY | 2024-10-12 00:34 | XMS_ITS | Encounter Summary ---
Author Organization [facility] Address [address] [place] [address] Care Team Providers Care Parts Clerk Plant Maintenance Name Role Phone Minh Ferrell MD Primary Care Provider Un available Haja Donahue MD Primary Care Provider + [phone] Haja Donahue MD Primary Care Provider + [phone] Haja Donahue MD Unavailable [phone] Brent Ellis MD Unavailable [phone] Carlos Castañeda PA-C Primary Care Provider [phone] Nicky Miller Unavailable Unavailable Mark Acuña MD Unavailable [phone] Nanette Wyatt PA-C Unavailable Sunita Sanchez NP Unavailable [phone] Encounter Details Date Type Department Care Team Description 09/13/2017 Information Specialist Report Medical Records [address] [place] [address] Juarez Mckeon Social History Tobacco Use Types Packs/Day Years [...] on filedocumented in this encounter Care Teams Parts Clerk Plant Maintenance Relationship Specialty Start Date End Date Minh Ferrell MD PCP - General Internal Medicine 08/30/15 01/29/19 Haja Donahue MD [address] [place] [address] PCP - General Internal Medicine 01/30/19 04/03/20 Haja Donahue MD [address] [place] [address] PCP - General 04/04/20 10/29/20 Carlos Castañeda PA-C [address] [place] [address] PCP - General Internal Medicine 10/30/20 Haja Donahue MD [address] [place] [address]131 Internal Medicine 04/04/20 Brent Ellis MD [address] [place] [address] 217[address] Stock Unloader Cardiovascular Disease 07/16/20 Nicky Miller PA [address] [place] [address] Specialist Cardiology 02/06/21 11/11/23 Mark Acuña MD [address] [address] Specialist Cardiology 07/31/21 Nanette Wyatt PA-C [address] [address] Specialist Cardiology 07/31/21 Sunita Sanchez NP [address] [place] [address] Nurse Practitioner Cardiology 10/20/23 documented as of this encounter
--- OUTSIDE RECORDS SUMMARY | 2024-10-12 00:34 | XMS_ITS | Encounter Summary ---
Author Organization [facility] Address [address] [place] [address] Care Team Providers Care Wheel Installer Name Role Phone Haja Donahue MD Unavailable [phone] Brent Ellis MD Unavailable Carlos Castañeda PA-C Primary Care Provider [phone] Nicky Miller Unavailable Unavailable Mark Acuña MD Unavailable [phone] Nanette Wyatt PA-C Unavailable Sunita Sanchez NP Unavailable [phone] Encounter Details Date Type Department Care Team Description 10/29/2021 Hospital Medical Records [address] [place] [address] Social History Tobacco Use Types Packs/Day Years [...] on filedocumented in this encounter Care Teams Wheel Installer Relationship Specialty Start Date End Date Carols Castañeda PA-C [address] [place] [address] PCP - General Internal Medicine 10/30/20 Haja Donahue MD [address] [place] [address] Internal Medicine 04/04/20 Brent Ellis MD [address] [place] [address] [address] Bridge Cardiovascular Disease 07/16/20 Nicky Miller PA [address] [place] [address] Specialist Cardiology 02/06/21 11/11/23 Mark Acuña MD [address] [address] Specialist Cardiology 07/31/21 Nanette Wyatt PA-C [address] [address] Specialist Cardiology 07/31/21 Sunita Sanchez NP [address] [place] [address] Nurse Practitioner Cardiology 10/20/23 documented as of this encounter
--- OUTSIDE RECORDS SUMMARY | 2024-10-12 00:34 | XMS_ITS | Encounter Summary ---
Author Organization [facility] Address [address] [place] [address] Care Team Providers Care Cleaner Name Role Phone Minh Ferrell MD Primary Care Provider Un available Haja Donahue MD Primary Care Provider + [phone] Haja Donahue MD Primary Care Provider + [phone] Haja Donahue MD Unavailable [phone] Brent Ellis MD Unavailable [phone] Carlos Castañeda PA-C Primary Care Provider [phone] Nicky Miller Unavailable Unavailable Mark Acuña MD Unavailable Nanette Wyatt PA-C Unavailable Sunita Sanchez NP Unavailable [phone] Reason for Visit * Reason Comments E-prescribe Rx Request Encounter Details Date Type Department Care Team Description 06/11/2018 Refill Adult Medicine [address] [phone] Elver Mustafa PA-C [address] [place] [address] [phone] E-prescribe Rx Request Social History Tobacco Use [...] encounter Miscellaneous Notes * Telephone Encounter - Shellyaura Díaz - 06/13/2018 9:53 AM EST Patient would like script to be: E-PRESCRIBED/FAXED TO PHARMACY WHEN WAS THE PATIENT'S LAST APPOINTMENT IN ADULT MEDICINE? 05/05/18 WHEN WAS THE LAST TIME THE PATIENT SAW THEIR PCP? 11/03/17 Does patient have an upcoming appointment? Yes 06/14/18 (THE MEDICATION REQUESTED IS ON THE MED [...] / Plan[place] / Product Type: MEDICARE [id number] documented in this encounter Plan of Treatment Not on file documented as of this encounter Visit Diagnoses Not on filedocumented in this encounter Care Teams Cleaner Relationship Specialty Start Date End Date Minh Ferrell MD PCP - General Internal Medicine 08/30/15 01/29/19 Haja Donahue MD [address] [place] [address] PCP - General Internal Medicine 01/30/19 04/03/20 Haja Donahue MD [address] [place] [address] PCP - General 04/04/20 10/29/20 Carlos Castañeda PA-C [address] [place] [address] PCP - General Internal Medicine 10/30/20 Haja Donahue MD [address] [place] [address] Internal Medicine 04/04/20 Brent Ellis MD [address] [place] [address] Concession Attendant Cardiovascular Disease 07/16/20 Nicky Miller PA [address] [place] [address] Specialist Cardiology 02/06/21 11/11/23 Mark Acuña MD [address] [address] Specialist Cardiology 07/31/21 Nanette Wyatt PA-C [address] [facility] [address] [place] [address] Specialist Cardiology 07/31/21 Sunita Sanchez NP [address] [place] [address] Nurse Practitioner Cardiology 10/20/23 documented as of this encounter
--- OUTSIDE RECORDS SUMMARY | 2024-10-12 00:34 | XMS_ITS | Encounter Summary ---
Author Organization [facility] Address [address] [place] [address] Care Team Providers Care College Athlete Name Role Phone Haja Donahue MD Unavailable [phone] Brent Ellis MD Unavailable [phone] Carlos Castañeda PA-C Primary Care Provider [phone] Nicky Miller Unavailable Unavailable Mark Acuña MD Unavailable [phone] Nanette Wyatt PA-C Unavailable Sunita Sanchez NP Unavailable [phone] Reason for Visit * Reason Comments E-prescribe Rx Request Encounter Details Date Type Department Care Team Description 01/24/2022 Refill Adult Medicine [address] [phone] Carlos Castañeda PA-C [address] [place] [address] [phone] E-prescribe Rx Request Social History Tobacco Use [...] an upcoming appointment? No[facility] for [facility] [...] N/A Patients current insurance carrier is: Payor: [facility] / Plan: [facility] MEDICARE COMPLETE $0 [id number] / Product Type: HMO [id number] documented in this encounter Plan of Treatment Not on file documented as of this encounter Visit Diagnoses Not on filedocumented in this encounter Care Teams College Athlete Relationship Specialty Start Date End Date Carlos Castañeda PA-C [address] [place] [address] PCP - General Internal Medicine 10/30/20 Haja Donahue MD [address] [place] [address] [phone] Internal Medicine 04/04/20 Brent Ellis MD [address] [place] [address] [place] [address] Manager Trade Cardiovascular Disease 07/16/20 Nicky Miller PA [address] [place] [address] Specialist Cardiology 02/06/21 11/11/23 Mark Acuña MD [address] [place] [address] Specialist Cardiology 07/31/21 Nanette Wyatt PA-C [address] [place] [address] Specialist Cardiology 07/31/21 Sunita Sanchez NP [address] [place] [address] Nurse Practitioner Cardiology 10/20/23 documented as of this encounter
--- OUTSIDE RECORDS SUMMARY | 2024-10-12 00:34 | XMS_ITS | Encounter Summary ---
Author Organization [facility] Address [address] [place] [address] Care Team Providers Care Clinical Education Specialist Name Role Phone Minh Ferrell MD Primary Care Provider Un available Haja Donahue MD Primary Care Provider + [phone] Haja Donahue MD Primary Care Provider + [phone] Haja Donahue MD Unavailable [phone] Brent Ellis MD Unavailable [phone] Carlos Castañeda PA-C Primary Care Provider [phone] Nicky Miller Unavailable Unavailable Mark Acuña MD Unavailable +[phone] Nanette Wyatt PA-C Unavailable Sunita Sanchez NP Unavailable [phone] Encounter Details Date Type Department Care Team Description 10/26/2016 [facility] Medical Records [address] [place] [address] Abstract, Provider Social History Tobacco Use Types [...] Date/Time Associated Diagnosis Comments OUTSIDE LAB Routine 10/13/2016 documented in this encounter Results * OUTSIDE LAB (10/13/2016) Provider Abstract LAB documented in this encounter Visit Diagnoses Not on filedocumented in this encounter Care Teams Clinical Education Specialist Relationship Specialty Start Date End Date Minh Ferrell MD PCP - General Internal Medicine 08/30/15 01/29/19 Haja Donahue MD [address] [place] [address]67 PCP - General Internal Medicine 01/30/19 04/03/20 Haja Donahue MD [address] [place] [address] PCP - General 04/04/20 10/29/20 Carlos Castañeda PA-C [address] [place] [address] PCP - General Internal Medicine 10/30/20 Haja Donahue MD [address] [place] [address]70 Internal Medicine 04/04/20 Brent Ellis MD [address] [place] [address] [place] [address] Wastewater Technician Cardiovascular Disease 07/16/20 Nicky Miller PA [address] [place] [address] Specialist Cardiology 02/06/21 11/11/23 Mark Acuña MD [address] [address] Specialist Cardiology 07/31/21 Nanette Wyatt PA-C [address] [address] Specialist Cardiology 07/31/21 Sunita Sanchez NP [address] [facility] [address] [place] [address] Nurse Practitioner Cardiology 10/20/23 documented as of this encounter
--- OUTSIDE RECORDS SUMMARY | 2024-10-12 00:34 | XMS_ITS | Encounter Summary ---
Author Organization [facility] Address [address] [place] [address] Care Team Providers Care Bariatric Physician Name Role Phone Minh Ferrell MD Primary Care Provider Un available Haja Donahue MD Primary Care Provider + [phone] Haja Donahue MD Primary Care Provider + [phone] Haja Donahue MD Unavailable [phone] Brent Ellis MD Unavailable [phone] Carlos Castañeda PA-C Primary Care Provider [phone] Nicky Miller Unavailable Unavailable Mark Acuña MD Unavailable Nanette Wyatt PA-C Unavailable Sunita Sanchez NP Unavailable [phone] Encounter Details Date Type Department Care Team Description 08/19/2016 Business Doc Medical Records [address] [place] [address] 87159 Abstract, Provider Social History Tobacco Use Types [...] on filedocumented in this encounter Care Teams Bariatric Physician Relationship Specialty Start Date End Date Minh Ferrell MD PCP - General Internal Medicine 08/30/15 01/29/19 Haja Donahue MD [address] [place] [address] 16050 PCP - General Internal Medicine 01/30/19 04/03/20 Haja Donahue MD [address] [place] [address] 22759 PCP - General 04/04/20 10/29/20 Carlos Castañeda PA-C [address] [place] [address] 98356 PCP - General Internal Medicine 10/30/20 Haja Donahue MD [address] [place] [address] 07586 Internal Medicine 04/04/20 Brent Ellis MD [address] [place] [address] 73509 Peanut Roaster Cardiovascular Disease 07/16/20 Nicky Miller PA [address] [place] [address] 10262 Specialist Cardiology 02/06/21 11/11/23 Mark Acuña MD [address] [address] Specialist Cardiology 07/31/21 Nanette Wyatt PA-C [address] [address] Specialist Cardiology 07/31/21 Sunita Sanchez NP [address] [place] [address] 54642 Nurse Practitioner Cardiology 10/20/23 documented as of this encounter
--- OUTSIDE RECORDS SUMMARY | 2024-10-12 00:34 | XMS_ITS | Encounter Summary ---
Author Organization [facility] Address [address] [place] [address] Care Team Providers Care School Library Media Program Director Name Role Phone Haja Donahue MD Unavailable [phone] Brent Ellis MD Unavailable [phone] Carlos Castañeda PA-C Primary Care Provider [phone] Nicky Miller Unavailable Unavailable Mark Acuña MD Unavailable [phone] Nanette Wyatt PA-C Unavailable Sunita Sanchez NP Unavailable [phone] Encounter Details Date Type Department Care Team Description 06/12/2023 [facility] Medical Records [address] [place] [address] Social History Tobacco Use Types Packs/Day Years [...] Associated Diagnosis Comments OUTSIDE VASCULAR STUDY Routine 06/12/2023 documented in this encounter Results * OUTSIDE VASCULAR STUDY (06/12/2023) Provider Abstract CARDIOLOGY documented in this encounter Visit Diagnoses Not on filedocumented in this encounter Care Teams School Library Media Program Director Relationship Specialty Start Date End Date Carlos Castañeda PA-C [address] [place] [address] PCP - General Internal Medicine 10/30/20 Haja Donahue MD [address] [place] [address] 88431 Internal Medicine 04/04/20 Brent Ellis MD [address] [place] [address] 30710 Automatic Embroidery Machine Tender Cardiovascular Disease 07/16/20 Nicky Miller PA [address] [place] [address]23 Specialist Cardiology 02/06/21 11/11/23 Mark Acuña MD [address] [place] [address]247 Specialist Cardiology 07/31/21 Nanette Wyatt PA-C [address] [place] [address] 81197 Specialist Cardiology 07/31/21 Sunita Sanchez NP [address] [place] [address]79 Nurse Practitioner Cardiology 10/20/23 documented as of this encounter
--- OUTSIDE RECORDS SUMMARY | 2024-10-12 00:34 | XMS_ITS | Encounter Summary ---
Author Organization [facility] Address [address] [place] [address] Care Team Providers Care Family Services Worker Name Role Phone Haja Donahue MD Unavailable [phone] Brent Ellis MD Unavailable [phone] Carlos Castañeda PA-C Primary Care Provider Mark Acuña MD Unavailable [phone] Nanette Wyatt PA-C Unavailable Sunita Sanchez NP Unavailable [phone] Encounter Details Date Type Department Care Team Description 12/16/2023 Orders Only Medical Records [address] [place] [address] Carlos Castañeda PA-C [address] [place], [place] [id number] Social History Tobacco Use Types Packs/Day Years [...] on filedocumented in this encounter Care Teams Family Services Worker Relationship Specialty Start Date End Date Carlos Castañeda PA-C [address] [place] [address] PCP - General Internal Medicine 10/30/20 Haja Donahue MD [address] [place], [place] [phone] Internal Medicine 04/04/20 Brent Ellis MD [address] [place] [address] 96100 Managed Care Liaison Cardiovascular Disease 07/16/20 Mark Acuña MD [address] [place] [address] Specialist Cardiology 07/31/21 Nanette Wyatt PA-C [address] [facility] [address] [place] [address] Specialist Cardiology 07/31/21 Sunita Sanchez NP [address] [place] [address] 80335 Nurse Practitioner Cardiology 10/20/23 documented as of this encounter
--- OUTSIDE RECORDS SUMMARY | 2024-10-12 00:34 | XMS_ITS | Encounter Summary ---
Author Organization [facility] Address [address] [place] [address] Care Team Providers Care Heavy Lift Rigger Name Role Phone Haja Donahue MD Unavailable [phone] Brent Ellis MD Unavailable [phone] Carlos Castañeda PA-C Primary Care Provider [phone] Nicky Miller Unavailable Unavailable Mark Acuña MD Unavailable [phone] Nanette Wyatt PA-C Unavailable Sunita Sanchez NP Unavailable [phone] Encounter Details Date Type Department Care Team Description 11/01/2021 [facility] Medical Records [address] [place] [id number] [place] [address] Social History Tobacco Use Types Packs/Day Years [...] on filedocumented in this encounter Care Teams Heavy Lift Rigger Relationship Specialty Start Date End Date Carlos Castañeda PA-C [address] [place] [address] PCP - General Internal Medicine 10/30/20 Haja Donahue MD [address] [place] [address] 11732 Internal Medicine 04/04/20 Brent Ellis MD [address] [place] [address] 83336 Physical Therapist Cardiovascular Disease 07/16/20 Nicky Miller PA [address] [place] [address] 37459 Specialist Cardiology 02/06/21 11/11/23 Mark Acuña MD [address] [place] [address] 63658 Specialist Cardiology 07/31/21 Nanette Wyatt PA-C [address] [place] [address] Specialist Cardiology 07/31/21 Sunita Sanchez NP [address] [place] [address]24 Nurse Practitioner Cardiology 10/20/23 documented as of this encounter
--- OUTSIDE RECORDS SUMMARY | 2024-10-12 00:34 | XMS_ITS | Encounter Summary ---
Author Organization [facility] Address [address] [place] [address] Care Team Providers Care Clinic Manager Name Role Phone Haja Donahue MD Unavailable [phone] Brent Ellis MD Unavailable [phone] Carlos Castañeda PA-C Primary Care Provider [phone] Nicky Miller Unavailable Unavailable Mark Acuña MD Unavailable [phone] Nanette Wyatt PA-C Unavailable Sunita Sanchez NP Unavailable [phone] Encounter Details Date Type Department Care Team Description 06/15/2022 [facility] Medical Records [address] [place] [id number] [place] [address] Social History Tobacco Use Types Packs/Day Years [...] on filedocumented in this encounter Care Teams Clinic Manager Relationship Specialty Start Date End Date Carlos Castañeda PA-C [address] [place] [address] PCP - General Internal Medicine 10/30/20 Haja Donahue MD [address] [place] [address] 41971 Internal Medicine 04/04/20 Brent Ellis MD [address] [place] [address] 86844 Bench Scientist Cardiovascular Disease 07/16/20 Nicky Miller PA [address] [place] [address]45 Specialist Cardiology 02/06/21 11/11/23 Mark Acuña MD [address] [place] [address] Specialist Cardiology 07/31/21 Nanette Wyatt PA-C [address] [place] [address] Specialist Cardiology 07/31/21 Sunita Sanchez NP [address] [place] [address] Nurse Practitioner Cardiology 10/20/23 documented as of this encounter
--- OUTSIDE RECORDS SUMMARY | 2024-10-12 00:34 | XMS_ITS | Encounter Summary ---
Author Organization [facility] Address [address] [place] [address] Care Team Providers Care Central Communications Specialist Name Role Phone Haja Donahue MD Primary Care Provider [phone] Haja Donahue MD Unavailable [phone] Brent Ellis MD Unavailable [phone] Carlos Castañeda PA-C Primary Care Provider [phone] Nicky Miller Unavailable Unavailable Mark Acuña MD Unavailable [phone] Nanette Wyatt PA-C Unavailable Sunita Sanchez NP Unavailable [phone] Reason for Visit * Reason Onset Date Comments refill request 07/16/2020 Encounter Details Date Type Department Care Team Description 07/16/2020 Refill Adult Medicine [address] [phone] Haja Donahue MD [address] [place] [address] [phone] refill request Social History Tobacco Use Types [...] N/A Patients current insurance carrier is: Payor: [facility] / Plan: AARP MEDICARE COMPLETE $0 [id number] / Product Type: HMO [id number] documented in this encounter Plan of Treatment Not on file documented as of this encounter Visit Diagnoses Not on filedocumented in this encounter Care Teams Central Communications Specialist Relationship Specialty Start Date End Date Haja Donahue MD [address] [place] [address] 58713 PCP - General 04/04/20 10/29/20 Carlos Castañeda PA-C [address] [place] [address]56 PCP - General Internal Medicine 10/30/20 Haja Donahue MD [address] [place] [address] 43166 Internal Medicine 04/04/20 Brent Ellis MD [address] [place] [address] [place] [address] Fitness/Wellness Director Cardiovascular Disease 07/16/20 Nicky Miller PA [address] [place] [address] 98271 Specialist Cardiology 02/06/21 11/11/23 Mark Acuña MD [address] [address] Specialist Cardiology 07/31/21 Nanette Wyatt PA-C [address] [address] Specialist Cardiology 07/31/21 Sunita Sanchez, LASHANDA [address] [place] [address] 84346 Nurse Practitioner Cardiology 10/20/23 documented as of this encounter
--- OUTSIDE RECORDS SUMMARY | 2024-10-12 00:34 | XMS_ITS | Encounter Summary ---
Author Organization [facility] Address [address] [place] [address] Care Team Providers Care Teacher Assistant Name Role Phone Minh Ferrell MD Primary Care Provider Un available Haja Donahue MD Primary Care Provider + [phone] Haja Donahue MD Primary Care Provider + [phone] Haja Donahue MD Unavailable [phone] Brent Ellis MD Unavailable [phone] Carlos Castañeda PA-C Primary Care Provider [phone] Nciky Miller Unavailable Unavailable Mark Acuña MD Unavailable Nanette Wyatt PA-C Unavailable Sunita Sanchez NP Unavailable [phone] Reason for Visit * Reason Comments E-prescribe Rx Request Encounter Details Date Type Department Care Team Description 04/23/2018 Refill Adult Medicine [address] [phone] Elver Mustafa PA-C [address] [place] [address] [phone] E-prescribe Rx Request Social History Tobacco Use [...] Telephone Encounter - Elver Mustafa PA-C - 04/26/2018 8:54 AM EST Ok to fill. Khalida Phelps * Telephone Encounter - Lisseth Tsang M.A. - 04/26/2018 8:45 AM EST Lab Results Component Value Date TSH 0.79 02/01/2018 * Telephone Encounter - Adrianne Ruiz - 04/25/2018 12:23 PM EST Patient would like script to be: E-PRESCRIBED/FAXED TO PHARMACY WHEN WAS THE PATIENT'S LAST APPOINTMENT IN ADULT MEDICINE? 02/01/18 WHEN WAS THE LAST TIME THE PATIENT SAW THEIR PCP? 11/03/17 Does patient have an upcoming appointment? Yes 05/05/18 (THE MEDICATION REQUESTED IS ON THE MED [...] / Plan[place] / Product Type: MEDICARE [id number] documented in this encounter Plan of Treatment Not on file documented as of this encounter Visit Diagnoses Not on filedocumented in this encounter Care Teams Teacher Assistant Relationship Specialty Start Date End Date Minh Ferrell MD PCP - General Internal Medicine 08/30/15 01/29/19 Haja Donahue MD [address] [place] [address] 9[address]10 PCP - General Internal Medicine 01/30/19 04/03/20 Haja Donahue MD [address] [place] [address] 15669 PCP - General 04/04/20 10/29/20 Carlos Castañeda PA-C [address] [place] [address] 33951 PCP - General Internal Medicine 10/30/20 Haja Donahue MD [address] [place] [address] 08308 Internal Medicine 04/04/20 Brent Ellis MD [address] [place] [address] [place] [address] Rn Long Term Care Cardiovascular Disease 07/16/20 Nicky Miller PA [address] [place] [address] 52571 Specialist Cardiology 02/06/21 11/11/23 Mark Acuña MD [address] [address] Specialist Cardiology 07/31/21 Nanette Wyatt PA-C [address] [address] Specialist Cardiology 07/31/21 Sunita Sanchez NP [address] [place] [address] 97117 Nurse Practitioner Cardiology 10/20/23 documented as of this encounter
--- OUTSIDE RECORDS SUMMARY | 2024-10-12 00:34 | XMS_ITS | Clinical Summary ---
Author Organization [facility] Address [address] [place] [address] Care Team Providers Care Steam Box Hand Name Role Phone Haja Donahue MD Unavailable [phone] Brent Ellis MD Unavailable [phone] Carlos Castañeda PA-C Primary Care Provider [phone] Mark Acuña MD Unavailable [phone] Nanette Wyatt PA-C Unavailable Sunita Sanchez NP Unavailable [phone] Allergies Active Allergy Reactions Severity Noted Date [...] 0 01/10/2024 Active amlodipine (NORVASC) 10 MG tabletIndications:Jennifer дмитрий hypertension Take 1 Tablet by mouth daily for 180 days. 30 Tablet 5 03/14/2024 Active lidocaine (LIDODERM) 5 % Place 1 [...] chest discomfort for which she visited the [facility] emergency room. It is possible her episodes of chest discomfort may be due to episodes of elevated blood pressures. Will continue to optimize her blood pressure control. Will also proceed with a workup to rule out secondary causes of hypertension. Syncope 06/15/2022 Last Assessment & Plan: Patient with history of recurrent episodes of syncope. She has a [employer] ILR that was placed in July 2021 [...] for which she was treated at the [facility] emergency room. She has continued to [...] 2024 06/02/2022, 04/30/2021, 10/26/2020, Additional history exists BMI CHECK/ADVISE 06/07/2024 02/21/2024, , 10/18/2023, Additional history exists DEPRESSION SCREEN 10/17/2024 10/18/2023 (Co mpleted), 07/20/2022, 12/12/2020, Additional history exists FALL RISK ASSESSMENT 10/17/2024 10/18/2023 (Completed), 07/20/2022, 07/20/2022, Additional history exists MAMMOGRAM 11/08/2024 11/09/2023, 10/05 (External Completion), 06/02/2022, Additional history exists INFLUENZA (Season Ended) 2025 023, 02/12/2021, 02/12/2021, Additional history exists CHOLESTEROL SCREENING 10/26/2028 10/27/2023 , 07/23/2021, 04/15/2021, Additional history exists DTAP/TDAP/TD (3 - Td or Tdap) 11/27/2029 11/28/2019, 08/14/2016 HEPATITIS C SCREENING Completed 08/14/2016 PNEUMOCOCCAL VACCINE Completed 07/20/2022 Advance Directives For more information, please contact: [phone] Documents on File Type Date Recorded Patient Director Credit Risk Expl anation Health Care Proxy 11/15/2020 9:18 AM [facility]alt [facility] Proxy Care Teams Steam Box Hand Relationship Specialty Start Date End Date Carlos Castañeda PA-C [address] [place] [address] PCP - General Internal Medicine 10/30/20 Haja Donahue MD [address] [place] [address] 25491 Internal Medicine 04/04/20 Brent Ellis MD [address] [place] [address] 67676 Gmat Tutor Cardiovascular Disease 07/16/20 Mark Acuña MD [address] [place] [address] Specialist Cardiology 07/31/21 Nanette Wyatt PA-C [address] [place] [address] Specialist Cardiology 07/31/21 Sunita Sanchez NP [address] [place] [address] 41734 Nurse Practitioner Cardiology 10/20/23
--- OUTSIDE RECORDS SUMMARY | 2024-10-12 00:34 | XMS_ITS | Encounter Summary ---
Author Organization [facility] Address [address] [place] [address] Care Team Providers Care Learning Support Services Director Name Role Phone Haja Donahue MD Unavailable [phone] Brent Ellis MD Unavailable [phone] Carlos Castañeda PA-C Primary Care Provider [phone] Nicky Miller Unavailable Unavailable Mark Acuña MD Unavailable [phone] Nanette Wyatt PA-C Unavailable Sunita Sanchez NP Unavailable [phone] Encounter Details Date Type Department Care Team Description 05/06/2023 Orders Only Medical Records [address] [place] [address] Janette Little PA-C Social History Tobacco Use [...] Name Priority Date/Time Associated Diagnosis Comments OUTSIDE IMAGING Routine 04/30/[address] Routine 04/29/2023 documented in this encounter Results * OUTSIDE IMAGING (04/30/2023) Janette Fabiana Anabel [facility] * OUTSIDE CT (04/29/2023) Alberta Omar [facility] documented in this encounter Visit Diagnoses Not on filedocumented in this encounter Care Teams Learning Support Services Director Relationship Specialty Start Date End Date Carlos Castañeda PA-C [address] [place] [address] PCP - General Internal Medicine 10/30/20 Haja Donahue MD [address] [place] [address] 19726 Internal Medicine 04/04/20 Brent Ellis MD [address] [place] [address]709 Punch Press Operator Helper Cardiovascular Disease 07/16/20 Nicky Miller PA [address] [place] [address]8797 Specialist Cardiology 02/06/21 11/11/23 Mark Acuña MD [address] [place] [address] Specialist Cardiology 07/31/21 Nanette Wyatt PA-C [address] [place] [address] Specialist Cardiology 07/31/21 Sunita Sanchez NP [address] [place] [address] 28896 Nurse Practitioner Cardiology 10/20/23 documented as of this encounter
--- OUTSIDE RECORDS SUMMARY | 2024-10-12 00:34 | XMS_ITS | Encounter Summary ---
Author Organization [facility] Address [address] [place] [address] Care Team Providers Care Correctional Facility Psychiatrist Name Role Phone Haja Donahue MD Unavailable [phone] Brent Ellis MD Unavailable [phone] Carlos Castañeda PA-C Primary Care Provider [phone] Nicky Miller Unavailable Unavailable Mark Acuña MD Unavailable [phone] Nanette Wyatt PA-C Unavailable Sunita Sanchez NP Unavailable [phone] Encounter Details Date Type Department Care Team Description 11/19/2022 [facility] Medical Records [address] [place] [address] Bob Wren Social History Tobacco Use Types [...] on filedocumented in this encounter Care Teams Correctional Facility Psychiatrist Relationship Specialty Start Date End Date Carlos Castañeda PA-C [address] [place] [address] PCP - General Internal Medicine 10/30/20 Haja Donahue MD [address] [place] [address] 72356 Internal Medicine 04/04/20 Brent Ellis MD [address] [place] [address] 58276 Change Advisor Cardiovascular Disease 07/16/20 Nicky Miller PA [address] [place] [address]994 Specialist Cardiology 02/06/21 11/11/23 Mark Acuña MD [address] [place] [address] Specialist Cardiology 07/31/21 Nanette Wyatt PA-C [address] [place] [address] Specialist Cardiology 07/31/21 Sunita Sanchez NP [address] [place] [address] 97946 Nurse Practitioner Cardiology 10/20/23 documented as of this encounter
--- OUTSIDE RECORDS SUMMARY | 2024-10-12 00:34 | XMS_ITS | Encounter Summary ---
Author Organization [facility] Address [address] [place] [address] Care Team Providers Care Supervisor Cutting Department Name Role Phone Haja Donahue MD Unavailable [phone] Brent Ellis MD Unavailable [phone] Carlos Castañeda PA-C Primary Care Provider [phone] Nicky Miller Unavailable Unavailable Mark Acuña MD Unavailable [phone] Nanette Wyatt PA-C Unavailable Sunita Sanchez NP Unavailable [phone] Reason for Visit * Reason Onset Date Comments other 09/06/2023 Encounter Details Date Type Department Care Team Description 09/06/2023 Telephone Cardio [facility] [address] [place] [phone] Sunita Sanchez NP [address] [place] [address] other Social History Tobacco Use Types Packs/Day [...] filedocumented in this encounter Care Teams Supervisor Cutting Department Relationship Specialty Start Date End Date Carlos Castañeda PA-C [address] [place] [address] PCP - General Internal Medicine 10/30/20 Haja Donahue MD [address] [place] [address] 36029 Internal Medicine 04/04/20 Brent Ellis MD [address] [place] [address] 10850 Rehab Department Manager Cardiovascular Disease 07/16/20 Nicky Miller PA [address] [place] [address]66 Specialist Cardiology 02/06/21 11/11/23 aMrk Acuña MD [address] [address] Specialist Cardiology 07/31/21 Nanette Wyatt PA-C [address] [address] Specialist Cardiology 07/31/21 Sunita Sanchez NP [address] [place] [address] 11233 Nurse Practitioner Cardiology 10/20/23 documented as of this encounter
--- OUTSIDE RECORDS SUMMARY | 2024-10-12 00:34 | XMS_ITS | Encounter Summary ---
Author Organization [facility] Address [address] [place] [address] Care Team Providers Care Filler Block Inserter Remover Name Role Phone Minh Ferrell MD Primary Care Provider Un available Haja Donahue MD Primary Care Provider + [phone] Haja Donahue MD Primary Care Provider + [phone] Haja Donahue MD Unavailable [phone] Brent Ellis MD Unavailable [phone] Carlos Castañeda PA-C Primary Care Provider [phone] Nicky Miller Unavailable Unavailable Mark Acuña MD Unavailable [phone] Nanette Wyatt PA-C Unavailable Sunita Sanchez NP Unavailable [phone] Encounter Details Date Type Department Care Team Description 11/08/2017 [facility] Medical Records [address] [place] [address] Abstract, Provider Social History Tobacco Use Types [...] on filedocumented in this encounter Care Teams Filler Block Inserter Remover Relationship Specialty Start Date End Date Minh Ferrell MD PCP - General Internal Medicine 08/30/15 01/29/19 Haja Donahue MD [address] [place] [address] PCP - General Internal Medicine 01/30/19 04/03/20 Haja Donahue MD [address] [place] [address] 64[address] PCP - General 04/04/20 10/29/20 Carlos Castañeda PA-C [address] [place] [address] PCP - General Internal Medicine 10/30/20 Haja Donahue MD [address] [place] [address] 40066 Internal Medicine 04/04/20 Brent Ellis MD [address] [place] [address] 88173 Chief Executive Cardiovascular Disease 07/16/20 Nicky Miller PA [address] [place] [address] Specialist Cardiology 02/06/21 11/11/23 Mark Acuña MD [address] [address] Specialist Cardiology 07/31/21 Nanette Wyatt PA-C [address] [address] Specialist Cardiology 07/31/21 Sunita Sanchez NP [address] [place] [address]853 Nurse Practitioner Cardiology 10/20/23 documented as of this encounter
--- OUTSIDE RECORDS SUMMARY | 2024-10-12 00:34 | XMS_ITS | Encounter Summary ---
Author Organization [facility] Address [address] [place] [address] Care Team Providers Care Labeler Name Role Phone Minh Ferrell MD Primary Care Provider Un available Haja Donahue MD Primary Care Provider + [phone] Haja Donahue MD Primary Care Provider + [phone] Haja Donahue MD Unavailable +[phone] Brent Ellis MD Unavailable +[phone] Carlos Castañeda PA-C Primary Care Provider Nicky Miller Unavailable Unavailable Mark Acuña MD Unavailable +[phone] Nanette Wyatt PA-C Unavailable Sunita Sanchez NP Unavailable [phone] Encounter Details Date Type Department Care Team Description 11/29/2017 [facility] Medical Records [address] [place] [id number] Social History Tobacco Use Types Packs/Day Years [...] on filedocumented in this encounter Care Teams Labeler Relationship Specialty Start Date End Date Minh Ferrell MD PCP - General Internal Medicine 08/30/15 01/29/19 Haja Donahue MD [address] [place] [address] PCP - General Internal Medicine 01/30/19 04/03/20 aHja Donahue MD [address] [place] [address] PCP - General 04/04/20 10/29/20 Carlos Castañeda PA-C [address] [place] [address] PCP - General Internal Medicine 10/30/20 Haja Donahue MD [address] [place] [address] 07288 Internal Medicine 04/04/20 Brent Ellis MD [address] [place] [address]163 Coo Cardiovascular Disease 07/16/20 Nicky Miller PA [address] [place] [address] Specialist Cardiology 02/06/21 11/11/23 Mark Acuña MD [address] [address] Specialist Cardiology 07/31/21 Nanette Wyatt PA-C [address] [address] Specialist Cardiology 07/31/21 Sunita Sanchez NP [address] [place] [address] Nurse Practitioner Cardiology 10/20/23 documented as of this encounter
--- OUTSIDE RECORDS SUMMARY | 2024-10-12 00:35 | XMS_ITS | Encounter Summary ---
Author Organization [facility] Address [address] [place] [address] Care Team Providers Care Resource Development Director Name Role Phone Minh Ferrell MD Primary Care Provider Un available Haja Donahue MD Primary Care Provider + [phone] Haja Donahue MD Primary Care Provider + [phone] Haja Donahue MD Unavailable +[phone] Brent Ellis MD Unavailable +[phone] Carlos Castañeda PA-C Primary Care Provider [phone] Nicky Miller Unavailable Unavailable Mark Acuña MD Unavailable +[phone] Nanette Wyatt PA-C Unavailable Sunita Sanchez NP Unavailable [phone] Encounter Details Date Type Department Care Team Description 11/06/2015 [facility] Records [address] [place] [address] Abstract, Provider Social History Tobacco Use Types [...] on filedocumented in this encounter Care Teams Resource Development Director Relationship Specialty Start Date End Date Minh Ferrell MD PCP - General Internal Medicine 08/30/15 01/29/19 Haja Donahue MD [address] [place] [address] PCP - General Internal Medicine 01/30/19 04/03/20 Haja Donahue MD [address] [place] [address] 88267 PCP - General 04/04/20 10/29/20 Carlos Castañeda PA-C [address] [place] [address] PCP - General Internal Medicine 10/30/20 Haja Donahue MD [address] [place] [address]32 Internal Medicine 04/04/20 Brent Ellis MD [address] [place] [address] Spray Dyer Cardiovascular Disease 07/16/20 Nicky Miller PA [address] [place] [address] Specialist Cardiology 02/06/21 11/11/23 Mark Acuña MD [address] [address] Specialist Cardiology 07/31/21 Nanette Wyatt PA-C [address] [address] Specialist Cardiology 07/31/21 Sunita Sanchez NP [address] [place] [address] Nurse Practitioner Cardiology 10/20/23 documented as of this encounter
--- OUTSIDE RECORDS SUMMARY | 2024-10-12 00:35 | XMS_ITS | Encounter Summary ---
Author Organization [facility] Address [address] [place] [address] Care Team Providers Care Wind Power Project Manager Name Role Phone Haja Donahue MD Primary Care Provider + [phone] Haja Donahue MD Primary Care Provider + [phone] Haja Donahue MD Unavailable +[phone] Brent Ellis MD Unavailable [phone] Carlos Castañeda PA-C Primary Care Provider +[phone] Nciky Miller Unavailable Unavailable Mark Acuña MD Unavailable [phone] Nanette Wyatt PA-C Unavailable Sunita Sanchez NP Unavailable [phone] Encounter Details Date Type Department Care Team Description 08/08/2019 [facility] Medical Records [address] [place] [address] Social History Tobacco Use Types Packs/Day Years [...] on filedocumented in this encounter Care Teams Wind Power Project Manager Relationship Specialty Start Date End Date Haja Donahue MD [address] [place] [address] PCP - General Internal Medicine 01/30/19 04/03/20 Haja Donahue MD [address] [place] [address] PCP - General 04/04/20 10/29/20 Carlos Castañeda PA-C [address] [place] [address] PCP - General Internal Medicine 10/30/20 Haja Donahue MD [address] [place] [address]51 Internal Medicine 04/04/20 Brent Ellis MD [address] [place] [address] Commercial Horticulture Instructor Cardiovascular Disease 07/16/20 Nicky Miller PA [address] [place] [address] Specialist Cardiology 02/06/21 11/11/23 Mark Acuña MD [address] [address] Specialist Cardiology 07/31/21 Nanette Wyatt PA-C [address] [address] Specialist Cardiology 07/31/21 Sunita Sanchez NP [address] [place] [address] Nurse Practitioner Cardiology 10/20/23 documented as of this encounter
--- OUTSIDE RECORDS SUMMARY | 2024-10-12 00:35 | XMS_ITS | Encounter Summary ---
Author Organization [facility] Address [address] [place] [address] Care Team Providers Care Vocational Psychologist Name Role Phone Minh Ferrell MD Primary Care Provider Un available Haja Donahue MD Primary Care Provider + [phone] Haja Donahue MD Primary Care Provider + [phone] Haja Donahue MD Unavailable [phone] Brent Ellis MD Unavailable +[phone] Carlos Castañeda PA-C Primary Care Provider [phone] Nicky Miller Unavailable Unavailable Mark Acuña MD Unavailable Nanette Wyatt PA-C Unavailable Sunita Sanchez NP Unavailable [phone] Encounter Details Date Type Department Care Team Description 01/22/2016 [facility] Medical Records [address] [place] [id number] Abstract, Provider Social History Tobacco Use Types [...] on filedocumented in this encounter Care Teams Vocational Psychologist Relationship Specialty Start Date End Date Minh Ferrell MD PCP - General Internal Medicine 08/30/15 01/29/19 Haja Donahue MD [address] [place] [address] PCP - General Internal Medicine 01/30/19 04/03/20 Haja Donahue MD [address] [place] [address] PCP - General 04/04/20 10/29/20 Carlos Castañeda PA-C [address] [place] [address] PCP - General Internal Medicine 10/30/20 Haja Donahue MD [address] [place] [address] Internal Medicine 04/04/20 Brent Ellis MD [address] [place] [address] Shipping Lead Person Cardiovascular Disease 07/16/20 Nicky Miller PA [address] [place] [address] Specialist Cardiology 02/06/21 11/11/23 Mark Acuña MD [address] [address] Specialist Cardiology 07/31/21 Nanette Wyatt PA-C [address] [address] Specialist Cardiology 07/31/21 Sunita Sanchez NP [address] [place] [address] Nurse Practitioner Cardiology 10/20/23 documented as of this encounter
--- OUTSIDE RECORDS SUMMARY | 2024-10-12 00:35 | XMS_ITS | Encounter Summary ---
Author Organization [facility] Address [address] [place] [address] Care Team Providers Care Deicer Inspector Pneumatic Name Role Phone Minh Ferrell MD Primary Care Provider Un available Haja Donahue MD Primary Care Provider + [phone] Haja Donahue MD Primary Care Provider + [phone] Haja Donahue MD Unavailable [phone] Brent Ellis MD Unavailable +[phone] Carlos Castañeda PA-C Primary Care Provider [phone] Nicky Miller Unavailable Unavailable Mrak Acuña MD Unavailable +[phone] Nanette Wyatt PA-C Unavailable Sunita Sanchez NP Unavailable [phone] Encounter Details Date Type Department Care Team Description 03/27/2016 Release of Information Medical Records [address] [place] [address] Abstract, Provider Social History Tobacco Use Types [...] on filedocumented in this encounter Care Teams Deicer Inspector Pneumatic Relationship Specialty Start Date End Date Minh Ferrell MD PCP - General Internal Medicine 08/30/15 01/29/19 Haja Donahue MD [address] [place] [address] PCP - General Internal Medicine 01/30/19 04/03/20 aHja Donahue MD [address] [place] [address] PCP - General 04/04/20 10/29/20 Carlos Castañeda PA-C [address] [place] [address] PCP - General Internal Medicine 10/30/20 Haja Donahue MD [address] [place] [address] 46021 Internal Medicine 04/04/20 Brent Ellis MD [address] [place] [address] Side Seam Tender Cardiovascular Disease 07/16/20 Nicky Miller PA [address] [place] [address] Specialist Cardiology 02/06/21 11/11/23 Mark Acuña MD [address] [address] Specialist Cardiology 07/31/21 Nanette Wyatt PA-C [address] [address] Specialist Cardiology 07/31/21 Sunita Sanchez NP [address] [place] [address] Nurse Practitioner Cardiology 10/20/23 documented as of this encounter
--- OUTSIDE RECORDS SUMMARY | 2024-10-12 00:35 | XMS_ITS | Data Portability ---
Author Organization [place] Jonny Tovar [facility], [facility] [place] Address [address] [place] [address] Care Team Providers Care Business Support Coordinator Name Role Phone MANPREET SUKI Primary Care Provider Assessment Encounter Date Assessment Date Assessment LastModified by Organization Details LastModified Time 09/27/2024 09/27/2024 Dx:left shoulder glenohumeral arthritis Interval History:69-year-old woman, long history of left shoulder pain, progressive over the past few years limiting activities. He has tried anti-inflammatories and rest. SocHx: nonsmoker, nondrinker Past Medical/Surgical History/Meds/Allerg ies reviewed and charted ROS: negative Physical Exam: afebrile, vital signs stable, in no apparent distress, oriented to person/place/time. Gait symmetric. Skin intact without erythema. Heart RRR Lungs: clear Abdomen soft, nontender. leftSHOULDER: no redness, warmth, deformity. Range of motion 50%full in all planes with no stiffness, pain throughout the arc. Strength 5/5 all muscle groups. Apprehension negative. Impingement sign negative. Acromioclavicular joint nontender without irritability with cross body adduction. Neurovascular Exam wnl. Contralateral SHOULDER: no redness, warmth, deformity. Range of motion full in all planes with no stiffnes. Strength 5/5 all muscle groups. Apprehension negative. Impingement sign negative. Acromioclavicular joint nontender without irritability to cross body adduction. Neurovascular Exam wnl. New Studies: 4 views left shoulder, inferior head osteophyte, glenohumeral arthritis Impression:left shoulder glenohumeral arthritis Plan: 1.discussed conservative versus operative management, she is not interested in cortisone and nonoperative care, wants to treat this definitively. Recommended and scheduled reverse total shoulder, follow-up for a preoperative visit. Detailed discussion regarding the patient? s pathoanatomy, and treatment options conducted. The risks and benefits, potential complications including but not limited to infection, stiffness, neurovascular injury, fracture, early or late prosthetic loosening, need for hardware removal, dislocation all discussed in detail. I explained that not all patients experience complete pain relief and pentecostal of full function with this procedure, and that significant limitations in use, as well as pain, may be present in spite of the operation. I explained that patients who have undergone shoulder arthroplasty are not cleared for unlimited use of the shoulder, and that they should expect permanent functional restrictions to be recommended after the procedure. I explained that failure to adhere to these restrictions may result in prosthetic failure and need for revision surgery. The patient was given the opportunity to ask questions to their satisfaction. Based on our discussion, I believe the patient has made an informed decision to proceed with surgery. [employer] speech recognition optics manufacturing technician software was used to create portions of this document. An attempt at proofreading has been made to minimize errors. Please call for corrections. [email or web address] Not available 09/27/2024 14:27:23 Plan of Treatment Reminders Order Date Submit Date Provider Last Modified By Organization Details Last Modified Time Details Appointments None recorded. Lab None recorded. 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 Surgeries None recorded. Imaging XR, shoulder, 2 or more view - 4V LT SHOULDER ROOM 212 2024 025 [email or web address] [facility], [address], [facility] [address], [place], [address], 5 14:36:49 Medication Orders None recorded. Patient TargetsNo targets recorded. 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 [facility] [address] [place], [address], 12/30/2023 16:37:19 12/29/19 24 12/29/2023 CT, wrist , w/o contr ast No observ ation record ed. [facility] - [address], [place], [address], 12/30/2023 16:37:20 02/04/20 24 08/30/2018 imagi ng/di agnos tic resul t No observ ation record ed. [email or web address] Not Available 01/07 23:00:44 09/28/19 25 09/27/2024 XR, shoul manfred, 2 or more view [email or web address] ?Encry pted=s hAaTro YD8dLq bEUv6g %2BXZw aYqtaq 0bqfl% 2Fg9IQ a4ajBk vP9nXo QUaueC m3YtLR FvZlgJ JJ8mAn HZtai3 2z5892 AC0Kla n2NU6G nKiQtr MwF INTERFACE [facility] [address] [facility] [address], [place], [address], 09/27/2024 13:28:58 09/28/19 25 09/27/2024 XR, shoul manfred, 2 or more view http:/ [email or web address] ?Encry pted=s hAaTro YD8dLq bEUv6g %2BXZw aYqtaq 0bqfl% 2Fg9IQ a4ajBk vP9nXo QUaueC m3YtLR FvZlgJ JJ8mAn HZtai3 5o4873 AC0Kla n2NU6G nKiQtr MwF INTERFACE [facility] [address] [facility] [address], [place], [address], 09/27/2024 13:29:00 Result Notes None recorded. Problems Name Problem SNOMED Code Status Onset Date Resolution Date Notes Provider Name and Address Organization Details Recorded Time Pain of left shoulder joint 410199826546 69718 Active 2015 Problem Code: M25.512; Problem Code Type: ICD-10; Status: 'A'; Not Available [facility] 4 11:59:31 Impingeme nt syndrome of left shoulder region 596006622026 104 Active 2015 Problem Code: M75.42; Problem Code Type: ICD-10; Status: 'A'; Not Available [facility] 4 11:59:31 Problem Notes None recorded. Procedures Surgical History Date Name Laterality Status Provider Name and Address Organization Details Recorded Time 4 Cast_Thumb Spica_11+ completed MESFIN GALLOWAY [facility] 01/31/2024 10:12:54 4 Cast Removal completed MESFIN GALLOWAY [facility] 01/31/2024 10:11:26 4 Cast_Thumb Spica_11+ completed Roxana Carranza [facility] 01/18/2024 12:07:09 4 Cast Removal completed Roxana Carranza [facility] 01/18/2024 12:02:40 4 Cast_Short Arm/Ulnar Gutter/Radia l Gutter_11+ completed MESFINDANA GALLOWAY [facility] 12/21/2023 10:36:46 4 Cast Removal completed MESFINDANA GALLOWAY [place] [facility] 12/21/2023 10:35:41 Imaging Results Imaging Date Name Status LastModified by Organiz ation Details LastModified Time 12/29/2023 CT, wrist, w/o contrast completed [facility] [address], [place], [address], 12/30/2023 16:37:19 12/29/2023 CT, wrist, w/o contrast completed [facility] - [address], [place], [address], 12/30/2023 16:37:20 08/30/2018 imaging/diagn ostic result completed [email or web address] Information not available 02/04/2024 23:00:44 09/27/2024 XR, shoulder, 2 or more view completed INTERFACE [facility] [address], [place], [address], 09/27/2024 13:28:58 09/27/2024 XR, shoulder, 2 or more view completed [facility] [address], [place], [address], 09/27/2024 13:29:00 Procedure Notes None recorded. Medical Equipment None Reported. Allergies Allergen ID Allergen Name Allergen Category Reaction Reaction Severity Criticality Documentation Date Start Date Code Code System Note Provider Name and Address Organization Details Recorded Time 60895 wheat preparati on food,medi cation Not available Not available Not available 08/09/20232008 27570 52 RxNorm Aller gyRea ction : 'O'; Not Available [facility] 4 12:09:06 35934 cultivate d mushroom extract food Not available Not available Not available 08/09/20232015 49736 17 RxNorm Not Available [facility] 4 12:09:06 Medications Name Sig Start Date Stop Date Status Note LastModified by Organization Details LastModified Time cyclobenzap rine 10 mg tablet TAKE 1 TABLET BY MOUTH 2 TIMES A DAY IF NEEDED FOR MUSCLE SPASMS. active Not Available Not Available No t Available cefuroxime axetil 250 mg tablet TAKE 1 TABLET BY MOUTH TWICE A DAY FOR 4 DAYS active Not Available Not Available No t Available atorvastati n 20 mg tablet TAKE 1 TABLET (20 MG TOTAL) BY MOUTH ONE TIME EACH DAY active Not Available Not Available No t Available azithromyci n 250 mg tablet active Not Available Not Available Not Available tolterodine ER 4 mg capsule,ext ended release 24 hr TAKE 1 CAPSULE (4 MG) BY MOUTH DAILY . DO NOT CRUSH, CHEW, OR SPLIT active Not Available Not Available No t Available prazosin 1 mg capsule TAKE ONE TO 2 CAPSULES BY MOUTH AT AT BEDTIME NEEDED START ON: 5 active Not Available Not Available No t Available FreeStyle Lancets 28 gauge active Not Available Not Available Not Available ondansetron HCl 4 mg tablet TAKE 1 TABLET (4MG TOTAL) BY MOUTH EVERY 8 HOURS NEEDED FOR NAUSEA active Not Available Not Available No t Available metoprolol succinate ER 100 mg tablet,exte nded release 24 hr TAKE 1 TABLET BY MOUTH 1 TIME EACH DAY. DO NOT CRUSH OR CHEW. active Not Available Not Available No t Available amlodipine 5 mg tablet TAKE 1 AND 1/2 TABLETS BY MOUTH DAILY active Not Available Not Available No t Available aspirin 81 mg tablet,heladio yed release TAKE 1 TABLET BY MOUTH 1 TIME EACH DAY. active Not Available Not Available No t Available spironolact one 25 mg tablet active Not Available Not Available Not Available levothyroxi ne 75 mcg tablet TAKE 1 TABLET (75 MCG TOTAL) BY MOUTH ONE TIME EACH DAY. active Not Available Not Available No t Available zonisamide 100 mg capsule TAKE 1 CAPSULE BY MOUTH 2 TIMES DAILY NEEDED (NAUSEA). active Not Available Not Available No t Available ropinirole 0.25 mg tablet TAKE 1 TABLET BY MOUTH 2 TIMES A DAY. active Not Available Not Available No t Available meclizine 25 mg tablet TAKE 1 TABLET BY MOUTH 3 TIMES DAILY NEEDED (VERTIGO) . active Not Available Not Available No t Available amlodipine 10 mg tablet TAKE 1 TABLET BY MOUTH 1 TIME EACH DAY. active Not Available Not Available No t Available pseudoephed rine-guaife nesin ER 80-700 mg tablet,exte nded release 1 PO Q4-6 HRS PRN PAIN 2008 active Statu s: 'Curr ent'; Not Available Not Available Not Available lidocaine 5 % topical patch active Not Available Not Available Not Available docusate sodium 100 mg capsule active Not Available Not Available N ot Available omeprazole 20 mg capsule,del ayed release TAKE 1 CAPSULE BY MOUTH EVERY DAY . DO NOT CRUSH OR CHEW. active Not Available Not Available No t Available dorzolamide 22.3 mg-timolol 6.8 mg/mL eye drops INSTILL 1 DROP IN LEFT EYE TWICE A DAY TWELVE HOURS APART active Not Available Not Available No t Available furosemide 20 mg tablet active Not Available Not Available Not Available albuterol sulfate HFA 90 mcg/actuati on aerosol inhaler INHALE 1 PUFF BY MOUTH EVERY 6 HOURS IF NEEDED FOR WHEEZING OR SHORTNESS OF BREATH. active Not Available Not Available No t Available spironolact one 50 mg tablet TAKE 1 TABLET BY MOUTH EVERY DAY active Not Available Not Available No t Available bupropion HCl XL 150 mg 24 hr tablet, extended release TAKE TABLET BY MOUTH DAILY START ON: 5 active Not Available Not Available No t Available metoclopram cristin HCl Metoclopr amide HCl 10MG Tablet 2020 active Statu s: 'Curr ent'; Not Available Not Available Not Available Cosopt Cosopt 2-0.5% Solution 2020 active Statu s: 'Curr ent'; Not Available Not Available Not Available FreeStyle Lite Meter kit active Not Available Not Available Not Available FreeStyle Lite Strips active Not Available Not Available Not Available oxycodone HCl-oxycodo ne-ASA as directed 1 Q [address] WHILE ON THIS MEDICATIO N 06/20 completed Statu s: 'Disc ontin ued'; Not Available Not Available Not Available Vitals Date Recorded Body height Body mass index (BMI) Body weight Provider Name and Address Organization Details Last Updated DateTime 02/04/2024 134.62 cm 45.1 kg/m2 01178.63 g Gilda Grimes [facility] 02/04/2024 10:21:51 Date Recorded Body height Body mass index (BMI) Body weight Provider Name and Address Organization Details Last Updated DateTime 02/23/2024 162.56 cm 30 kg/m2 99140.66 g Gilda Grimes [facility] 02/23/2024 09:05:54 Date Recorded Body height Body mass index (BMI) Body weight Provider Name and Address Organization Details Last Updated DateTime 09/27/2024 162.56 cm 30 kg/m2 03270.66 g BAYLEE SCHMITT [place] [facility] 09/27/2024 13:17:08 Social History None recorded. Functional Status None recorded. Mental Status None recorded. Family History Nothing Reported. Medical History Condition Response Coronary Artery Disease N Anxiety/Depression N Emphysema N COPD N Pacemaker N Vascular Disease N Heart Trouble Y Gastrointestinal Disease Y Autoimmune disease N Inflammatory Joint disease N Orthotics N Arthritis N Blood Clot N Acid Reflux (GERD) N Cancer N Stroke N Circulation Problems N Rheumatoid Arthritis N Arrhythmia N Headaches N Fibromyalgia N Allergies/Hayfever N Breathing or lung disorders N Nerve Disorders N Thyroid Problems N Kidney/Bladder Problems Y Anemia N Heart Attack (IN) N Cholesterol Y Diabetes N Bleeding Disorder N Seizures/Epilepsy N AIDS/HIV N Congestive Heart Failure (CHF) N Asthma N Peripheral Vascular Disease N Sleep Apnea N Hepatitis N Heart Disease N Pulmonary Embolism N Hypertension Y Osteoporosis N Gynecological HistoryNo gynecological history recorded. Obstetrics History GPAL:G 0 P 0 0 0 0 Past Encounters Encounter ID Performer Location Encounter Start Date Encounter Closed Date Diagnosis/Indication Diagnosis SNOMED-CT Code Diagnosis ICD10 Code Diagnosis Note [id number] [facility] [address] [place] [address] 12/07/2023 08:45:24 12/31/2023 14:57:04 Closed fracture of scaphoid bone of wrist 15627386 S62.001A [id number] [facility] [address] [place] [address] 12/08/2023 09:38:20 12/08/2023 10:02:20 Closed fracture of scaphoid bone of wrist 52182445 S62.001A [id number] [facility] [address] [place] [address] 12/21/2023 10:09:58 12/21/2023 10:38:02 Closed fracture of navicular bone of right wrist 1598344498 3119063 S62.001A [id number] Karley Casartello , PA-C [facility] [address] [place] [address] 01/05/2024 08:40:38 02/03/2024 11:19:53 Pain of right wrist 5870380384 56953 M25.060 [id number] Karley Nicholas PA-C [facility] [address] [place] [address] 01/18/2024 11:35:16 01/18/2024 12:09:18 Pain of right wrist 4657685157 96065 M25.384 [id number] Karley Nicholas PA-C [facility] [address] [place], [place] [address] 01/31/2024 09:51:45 01/31/2024 10:15:26 Pain of right wrist 2967009955 92155 M25.382 [id number] Karley Nicholas PA-C [facility] [address] [place] [address] 02/04/2024 09:40:33 02/28/2024 14:08:17 Pain of right wrist 5765905757 90320 M25.531 Closed fra cture of scaphoid bone of wrist 21216397 S62.001A [id number] Karley Nicholas PA-C [facility] [address] [place] [address] 02/23/2024 09:00:30 03/16/2024 08:09:10 Closed fracture of scaphoid bone of wrist 66835398 S62.001A [id number] Guillermo Carter MD [facility] - [facility] [address] [place] [address] 09/27/2024 12:13:01 10/04/2024 14:36:49 Pain of left shoulder joint 5462291916 3814700 M25.512 Health Concerns Section Related Observation LastModified by Organization Detai ls LastModified Time None Recorded Concern Status LastModified by Organization Details LastModified Time None Recorded Advance Directives Directive None Recorded Payers Encounter Date Sequence Insurance Name Policy Number Policy George Covered Member ID George Member ID Guarantor Name 01/18/2024 1 [facility] - DOS ON OR AFTER 2022 - ONE CARE (MEDICARE REPLACEMENT/ADV ANTAGE - HMO) Lauren Rodríguez Nihill [id number] Lauren Rodríguez Nihill 01/31/2024 1 [facility] - DOS ON OR AFTER 2022 - ONE CARE (MEDICARE REPLACEMENT/ADV ANTAGE - HMO) Lauren Rodríguez Nihill [id number] Lauren Rodríguez Nihill 02/04/2024 1 [facility] - DOS ON OR AFTER 2022 - ONE CARE (MEDICARE REPLACEMENT/ADV ANTAGE - HMO) Lauren Rodríguez Nihill [id number] Lauren Rodríguez Nihill 02/23/2024 1 [facility] - DOS ON OR AFTER 2022 - ONE CARE (MEDICARE REPLACEMENT/ADV ANTAGE - HMO) Lauren Rodríguez Nihill [id number] Lauren Rodríguez Nihill 09/27/2024 1 [facility] (MEDICARE REPLACEMENT/ADV ANTAGE - HMO) Lauren Rodríguez Nihill [id number] Lauren Lemos Notes Date Note Type Note Provider Name and Address Organization Details Recorded Time 02/04/2024 text/html I am seeing the patient today under the supervision of Dr. Lopez who was available but did not see the patient.HPI: 68-year-old female who is right-handed and retired presents the clinic today for evaluation regards to a right wrist injury. Patient states that on 11/29/2023 patient [place] walking [place] a bus station when she did not see a concrete block. She states she tripped over and fell on outstretched right wrist. She had pain immediately. She is taken to the hospital because she also sustained injuries to her head. She was provided a splint and told to follow-up with reevaluation. She was also cleared medically secondary to her fall. She also sustained a black eye. On medication for high blood pressure, hyperlipidemia, cardiovascular disease as well as diabetes however her fasting blood sugars usually around 95. Denies any previous injuries or surgeries to her wrist. States that she is having occasional numbness and tingling. States it is worse in her thumb.Clinical update: Patient presents to clinic today for reevaluation. She was previously concerned with having a trapezium fracture she has been in a cast for the last few weeks. She presents today for evaluation. Denies interval trauma. Denies numbness and tingling. States her thumb is stiff but not painful..Past family, medical, social history and review of systems has been reviewed, updated and signed by me and is located in the patient's chart.Examination: Patient is sitting comfortably in exam room today alert and oriented x 3 no acute distress.Right wrist exam: Skin is intact without evidence of erythema noted. Evidence of some soft tissue swelling noted about the wrist. Patient is tender to palpation about the anatomical snuffbox minimally and volar pole scaphoid of the wrist. Evidence of discomfort in all kovacs with range of motion with intact flexion extension of the digits with intact EPL, EPL, EPB. Unremarkable scaphoid shift test in comparison to the contralateral side. Evidence of positive compression testing and Tinel's to the carpal tunnelX-rays ordered, obtained and reviewed at [facility]: None performed today, previousCT scan demonstrates evidence of no obvious fracture to the scaphoid however there does appear to be evidence of a 0.7 x 0.5 x 0.6 cm fracture fragment of the volar aspect of the trapezium without any evidence of obvious callus formation noted.Impression: Right wrist injury with trapezium fracture doing wellPlan: [I discussed my findings with the patient today. We discussed the pathophysiology of her conditions. Patient will be placed in a thumb spica cast brace. She will come out of this a couple times a day to work on range of motion. She is encouraged to utilize Tylenol and heat at this time, working on active range of motion. She is given a informational sheet on range of motion exercises. She will follow-up in 3 weeks for reevaluation hopefully she will be able to transition into activities as tolerated however if she is having any difficulty, referral to occupational therapy needed in. All questions and concerns were answered and addressed. She will contact the clinic in the meantime for any further questions or concerns.Speech recognition optics manufacturing technician software was used to create portions of this document. An attempt at proofreading has been made to minimize errors. Please call for corrections.The patient is ambulatory, but has weakness and/or instability of their extremity which requires stabilization from this semi-rigid/rigid orthosis to improve their function.Verbal and written instructions for the use and application of this item were given. Patient was instructed that should the brace result in increased pain, decreased sensation, increased swelling or an overall worsening of their medical condition, to please contact our office immediately. Karley Nicholas PA-C [address] [address], [place], [address], [facility] 02/04/2024 12:28:41 02/23/2024 text/html I am seeing the patient today under the supervision of Dr. Lopez who was available but did not see the patient.HPI: 68-year-old female who is right-handed and retired presents the clinic today for evaluation regards to a right wrist injury. Patient states that on 11/29/2023 patient was walking at a bus station when she did not see a concrete block. She states she tripped over and fell on outstretched right wrist. She had pain immediately. She is taken to the hospital because she also sustained injuries to her head. She was provided a splint and told to follow-up with reevaluation. She was also cleared medically secondary to her fall. She also sustained a black eye. On medication for high blood pressure, hyperlipidemia, cardiovascular disease as well as diabetes however her fasting blood sugars usually around 95. Denies any previous injuries or surgeries to her wrist. States that she is having occasional numbness and tingling. States it is worse in her thumb. Clinical update: Patient presents to clinic today for reevaluation. She was previously concerned with having a trapezium fracture. Patient has been doing well. She has transition into a removable wrist splint. She is not having much pain however she does elicit some stiffness. She been doing exercises at home, however she is noticing some continued tightness especially through her IP joint of her thumb. Denies interval trauma. Denies numbness and tingling.Past family, medical, social history and review of systems has been reviewed, updated and signed by me and is located in the patient's chart.Examination: Patient is sitting comfortably in exam room today alert and oriented x 3 no acute distress.Right wrist exam: Skin is intact without evidence of erythema, ecchymosis, edema noted. t. Patient is essentially nontender to palpation about the anatomical snuffbox minimally minimal evidence of discomfort in all kovacs with range of motion with intact flexion extension of the digits with intact EPL, EPL, EPB. There does appear to be some intrinsic tightness to the IP joint of the thumb however patient is able to perform thumb opposition to the small finger with finger slide. unremarkable scaphoid shift test in comparison to the contralateral side. Evidence of positive compression testing and Tinel's to the carpal tunnelX-rays ordered, obtained and reviewed at [facility]: None performed today, previousCT scan demonstrates evidence of no obvious fracture to the scaphoid however there does appear to be evidence of a 0.7 x 0.5 x 0.6 cm fracture fragment of the volar aspect of the trapezium without any evidence of obvious callus formation noted.Impression: Right wrist injury with trapezium fracture doing wellPlan: [I discussed my findings with the patient today. We discussed the pathophysiology of her conditions. Unfortunately the patient is still experiencing some stiffness and intrinsic tightness. Patient will be referred to occupational therapy. She will follow-up in 6 weeks post therapy to see how she is doing. If doing well she may cancel. Still having pain or discomfort potential discussion of a cortisone injection may be beneficial pending upon where her. Her pain localizes. All questions and concerns answered and addressed. She will contact the clinic in the meantime for any further questions or concerns.Speech recognition optics manufacturing technician software was used to create portions of this document. An attempt at proofreading has been made to minimize errors. Please call for corrections.The patient is ambulatory, but has weakness and/or instability of their extremity which requires stabilization from this semi-rigid/rigid orthosis to improve their function.Verbal and written instructions for the use and application of this item were given. Patient was instructed that should the brace result in increased pain, decreased sensation, increased swelling or an overall worsening of their medical condition, to please contact our office immediately. [address], [place], [address], [facility] - [facility] 02/24/2024 21:38:26 OBGyn Episode No OBEpisode recorded.
--- OUTSIDE RECORDS SUMMARY | 2024-10-12 00:35 | XMS_ITS | Encounter Summary ---
Author Organization [facility] Address [address] [place] [address] Care Team Providers Care Delivery Table Feeder Name Role Phone Haja Donahue MD Primary Care Provider + [phone] Haja Donahue MD Primary Care Provider + [phone] Haja Donahue MD Unavailable [phone] Brent Ellis MD Unavailable [phone] Carlos Castañeda PA-C Primary Care Provider [phone] Nicky Miller Unavailable Unavailable Mark Acuña MD Unavailable [phone] Nanette Wyatt PA-C Unavailable Sunita Sanchez NP Unavailable [phone] Encounter Details Date Type Department Care Team Description 02/01/2020 Orders Only Adult Medicine [address] [phone] Haja Donahue MD [address] [place] [address] [phone] Abnormal breast finding; Encounter for screening mammogram [...] mammogram documented in this encounter Care Teams Delivery Table Feeder Relationship Specialty Start Date End Date Haja Donahue MD [address] [place] [address] PCP - General Internal Medicine 01/30/19 04/03/20 Haja Donahue MD [address] [place] [address] PCP - General 04/04/20 10/29/20 Carlos Castañeda PA-C [address] [place] [address] PCP - General Internal Medicine 10/30/20 Haja Donahue MD [address] [place] [address] Internal Medicine 04/04/20 Brent Ellis MD [address] [place] [address] [place] [address] Training Coordinator Cardiovascular Disease 07/16/20 Nicky Miller PA [address] [place] [address] Specialist Cardiology 02/06/21 11/11/23 Mark Acuña MD [address] [place] [address] Specialist Cardiology 07/31/21 Nanette Wyatt PA-C [address] [place] [address] Specialist Cardiology 07/31/21 Sunita Sanchez NP [address] [place] [address] Nurse Practitioner Cardiology 10/20/23 documented as of this encounter
--- OUTSIDE RECORDS SUMMARY | 2024-10-12 00:35 | XMS_ITS | Encounter Summary ---
Author Organization [facility] Address [address] [place] [address] Care Team Providers Care Florist Supplies Salesperson Name Role Phone Haja Donahue MD Primary Care Provider + [phone] Haja Donahue MD Primary Care Provider + [phone] Haja Donahue MD Unavailable [phone] Brent Ellis MD Unavailable [phone] Carlos Castañeda PA-C Primary Care Provider [phone] Nicky Miller Unavailable Unavailable Mark Acuña MD Unavailable [phone] Nanette Wyatt PA-C Unavailable Sunita Sanchez NP Unavailable [phone] Reason for Visit * Reason Comments E-prescribe Rx Request Encounter Details Date Type Department Care Team Description 09/02/2019 Refill Adult Medicine [address] [phone] Haja Donahue MD [address] [place] [address] [phone] E-prescribe Rx Request Social History Tobacco Use [...] / Plan: [place] / Product Type: MEDICARE [id number] documented in this encounter Plan of Treatment Not on file documented as of this encounter Visit Diagnoses Not on filedocumented in this encounter Care Teams Florist Supplies Salesperson Relationship Specialty Start Date End Date Haja Donahue MD [address] [place] [address] PCP - General Internal Medicine 01/30/19 04/03/20 Haja Donahue MD [address] [place] [address] PCP - General 04/04/20 10/29/20 Carlos Castañeda PA-C [address] [place] [address] PCP - General Internal Medicine 10/30/20 Haja Donahue MD [address] [place] [address] Internal Medicine 04/04/20 Brent Ellis MD [address] [place] [address] [place] [address] Rn Coronary Care Unit Cardiovascular Disease 07/16/20 Nicky Miller PA [address] [place] [address] Specialist Cardiology 02/06/21 11/11/23 Mark Acuña MD [address] [address] Specialist Cardiology 07/31/21 Nanette Wyatt PA-C [address] [address] Specialist Cardiology 07/31/21 Sunita Sanchez NP 2 [facility] [address] [place] [address] Nurse Practitioner Cardiology 10/20/23 documented as of this encounter
--- OUTSIDE RECORDS SUMMARY | 2024-10-12 00:35 | XMS_ITS | Clinical Summary ---
Author Organization [facility] [address] [place] [address] [place] [phone] Phone Care Team Providers Care Incident Response Lead Name Role Phone Carlos Castañeda Primary Care Provider [phone] Allergies Active Allergy Reactions Criticality Noted Date [...] each day. 90 tablet 1 5 Active atorvastatin (LIPITOR) 20 mg tablet Take 1 tablet (20 mg total) by mouth 1 (one) time each day. 90 tablet 1 5 Active cyclobenzaprine (FLEXERIL) 10 mg tablet Take 1 tablet (10 mg total) by mouth 2 (two) times a day if needed for muscle spasms. 30 tablet 5 5 Active levothyroxine (SYNTHROID, LEVOTHROID) 75 mcg tablet Take 1 tablet (75 mcg total) by mouth 1 (one) time each day. 90 tablet 1 5 Active meclizine (ANTIVERT) 25 mg tablet Take 1 Tablet by mouth 3 times daily as needed (vertigo). 30 tablet 5 5 Active omeprazole (PriLOSEC) [address] capsule Take 1 capsule (20 mg total) by mouth 1 (one) time each day. Do not crush or chew. 90 capsule 1 5 Active ondansetron (ZOFRAN) 4 mg tablet [...] crush, chew, or split. 90 capsule 1 5 Active zonisamide (ZONEGRAN) 100 mg capsule [...] shortness of breath. 8.5 g 5 Active lidocaine (LIDODERM) 5 % patch Apply topically 1 (one) time each day. Apply for no more than 12 hours in any 24 hour period 28 patch 5 5 Active buPROPion XL (WELLBUTRIN XL) 150 mg 24 hr tablet Take 1 tablet (150 mg total) by mouth 1 (one) time each day. Do not crush, chew, or split. Active lidocaine (LIDODERM) 5 % patch Apply 1 patch topically 1 (one) time each day. Apply to painful area 12 hours per day, remove for 12 hours. 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 She will also continue her plans to complete a scheduled echocardiogram. Syncope 06/15/2022 Overview (03/09/2024): Last Assessment & Plan: Patient with history of recurrent episodes of syncope. She has a [employer] ILR that was placed in July 2021 [...] a different antihypertensive. LOC (loss of consciousness) (CMS/[facility]ER[facility] V24, CMS/HC C V28) 05/07/2020 Overview (03/09/2024): Last Assessment & Plan: [...] kidney disease) stage 3, GFR 30-59 ml/min ([facility]/FORMERLY [facility] V24, [facility] V28) 08/24/2018 Osteoarthritis 09/08/2016 Glaucoma 08/14/2016 Osteopenia 11/06/2015 Encounters Date Type Department Care Team Description 09/21/2024 10:20 AM EDT Ancillary Procedure [facility] Cardiology [facility] [address] [place] [address] 09/20/2024 Telephone [facility] - [address] [place] [address] Sona Nieves [place] 09/08/2024 8:45 PM EDT Ancillary Procedure [facility] Cardiology [facility] [address] [place] [address] 09/08/2024 5:15 PM EDT Ancillary Procedure [facility] Cardiology [facility] - [facility] [address] [facility] [address] [place] [address] 09/06/2024 2:10 AM EDT Ancillary Procedure [facility] - [facility] [address] [facility] [address] [place] [address] 08/24/2024 1:00 PM EDT Procedure visit General [address] [address] Ravindra Sarmiento, DO Lipoma of left thigh (Primary Dx) 08/14/2024 10:45 AM EDT Consult [address] [address] Ravindra Sarmiento, DO Lipoma of left thigh (Primary Dx); Chronic pain of right knee; Stage 3 chronic kidney disease, unspecified whether stage 3a or 3b CKD (CMS/HCC V24, CMS/HCC V28); Primary hypertension 08/14/[address] [address] Ravindra Sarmiento, DO Prior Authorization (08/24/24 Dr. Ravindra Sarmiento) 08/02/2024 8:55 PM EST Ancillary Procedure [facility] - [facility] [address] [facility] [address] [place] [address] 07/31/[address] [address] Christin Pagan [place] 07/18/2024 9:24 AM EST - 07/18/2024 11:59 PM EST Hospital Encounter Radiology Department - [address] [phone] Elevated LFTs Discharge Disposition: Home or Self Care from Last 3 Months Immunizations Name Administration [...] 6mo and older 01/22/2020,02/13/2017,05/13/2016 Influenza, Unspecified 01/22/2020,02/12/2019 [employer] SARS-CoV-2 COVID-19, mRNA, LNP-S, preservative free 06/02/2022,04/30/2021,10/26/2020,2020 [...] REPAIR FEMUR FRACTURE SURGERY 2004 Right PROCEDURE: ID OPEN TX FEMORAL FRACTURE DISTAL MED/LAT CONDYLE [...] kidney disease) stage 3, GFR 30-59 ml/min (CMS/HCC V24, CMS/HCC V28) 08/24/2018 DX:CKD (chronic kidney disea se) stage 3, GFR 30-59 ml/min (HCC) Dyspnea [...] Sign Reading Time Taken Comments Blood Pressure 138/77 08/24/2024 1:05 PM EDT Pulse 62 08/24/2024 1:05 PM EDT Temperature 36.7 ??C (98 ??F) 06/29/2024 10:12 AM EST Respiratory Rate 12 06/29/2024 10:12 AM EST Oxygen Saturation - - Inhaled Oxygen Concentration - - Weight 86.2 kg (190 lb) 08/14/2024 9:40 AM EDT Height 162.6 cm (5' 4 ) 06/29/2024 10:12 AM EST Body Mass Index 32.61 06/29/2024 10:12 AM EST Plan of Treatment Health Maintenance Due Date [...] Td or Tdap) 11/27/2029 11/28/2019, 08/14/2016, 09/27/2008 Influenza Vaccine Completed 03/11/2024, , 07/20/2022, Additional history exists RSV Immunization Adult Patients Completed 04/25/2024 Zoster Vaccines Completed 04/25/2024, 03/07, 04/26/2017 Pneumococcal Vaccine: 50+ Years Completed 06/15/2024, 07/20/2022 Hepatitis C Screening Completed 07/18/2024, 017 COVID-19 Vaccine Completed 09/18/2024, 10/2023, 03/16/2023, Additional history exists HIB Vaccines Aged Out No longer eligi [...] age to complete this topic Meningococcal B Vaccine Aged Out No l onger eligible based on patient's age to complete this topic RSV Immunization Patients Under 20 months Aged Out No longer eligible based on patient's age to complete this topic Varicella Vaccines Aged Out No longer eligible based on patient's age to complete this topic Medical Devices Implanted Type Area Granulator Device Identifier Shelf Expiration Date Model / Serial / Lot Bsci-Crm [id number] Implanted:07/08 (Quantity not on file) Cardiac Loop Recorder [employer]ARD RHYTHM MGMT [id number] / [id number] / Procedures Procedure Name Priority Date/Time Associated Diagnosis Comments CARDIAC DEVICE CHECK- REMOTE- MURJ Routine 09/21/2024 10:19 AM EDT CARDIAC DEVICE CHECK- REMOTE- MURJ Routine 09/08/2024 8:42 PM EDT CARDIAC DEVICE CHECK- REMOTE- MURJ Routine 09/08/2024 5:13 PM EDT CARDIAC DEVICE CHECK- REMOTE- MURJ Routine 09/06/2024 2:08 AM EDT TISSUE EXAM Routine 08/24/2024 1:16 PM EDT Lipoma of left thigh CARDIAC DEVICE CHECK- REMOTE- MURJ Routine 08/02/2024 8:50 PM EST HEPATIC FUNCTION PANEL Routine 07/18/2024 10:20 AM EST Elevated LFTs HEPATITIS PANEL, ACUTE WITH REFLEX TO CONFIRMATION Routine 07/18/2024 10:20 AM EST Elevated LFTs US ABDOMEN LIMITED Routine 07/18/2024 9: 57 AM EST Elevated LFTs COMPREHENSIVE METABOLIC PANEL Routine 06/29/2024 11:28 AM EST Primary hypertension LIPID PANEL WITH REFLEX TO DIRECT LDL Routine 06/29/2024 11:28 AM EST Pure hypercholesterolemia HM DEPRESSION SCREENING Routine 10/18/2023 HM FALLS RISK ASSESSMENT Routine 10/18/2023 from Last 3 Months or Most Recently Relevant to Health Maintenance Results * Cardiac device check - Remote- MURJ (09/21/2024 10:19 AM EDT) Only the most recent of5 resultswithin the time period is included. Date Time Interrogation Session [id number] CV DEVICE CHECK Type Interrogation Session Remote Device Initiated CV DEVICE CHECK Implantable Pulse Generator Granulator BSX CV DEVICE CHECK Implantable Pulse Generator Type ILR CV DEVICE CHECK Implantable Pulse Generator Model M301 CV DEVICE CHECK Implantable Pulse Generator Serial Number [id number] CV DEVICE CHECK Implantable Pulse Generator Implant Date [id number] CV DEVICE CHECK Battery Status Recommended Replacement Time CV DEVICE CHECK Atrial Tachy Statistic AT/AF [place] Percent 0.00 CV DEVICE CHECK Date of Service 2024-10-15 CV DEVICE CHECK Anatomical Region Laterality Modality Device Interroga tion 09/20/2024 1:56 AM EDT Impressions 09/21/2024 10:16 AM EDT Low Battery Indicator * Low battery condition met and device replacement indicator triggered * 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 battery 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: 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 WORKER, * Message sent to scheduling to book patient for ILR removal talk Narrative Procedure Note Katiana Romero NP - 09/21/2024 IMPRESSION: Low Battery Indicator * Low battery condition met and device replacement indicator triggered * 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 Thigh, Left, lipoma: Labeled thigh L . Received in formalin is a focally disrupted, 38 gram, 5.0 x 4.6 x 3.0 cm soft, yellow, lobulated and focally encapsulated grossly fatty mass. The cut surfaces are homogeneous. Due to the disruption, the margins are not inked. Customer Service Voice sections are submitted in one cassette five pieces. TS 08/28/2024 1:14 PM EDT [facility] Disclaimer Unless otherwise specified, all tissue is 10% NB formalin fixed and paraffin embedded. 08/28/2024 1:14 PM EDT [facility] Tissue Structure of left thigh / Unknown Non-blood Collection / Unknown 08/24/2024 1:16 PM EDT 08/24/2024 1:22 PM EDT us Ravindra Sarmiento DO LAB PATHOLOGY ORDERABLES Final Result Performing Organization Address City/[facility]/ZIP Co de Phone Number [facility] [address] [place] [address], [place] [phone] * Hepatitis panel, acute with reflex to confirmation (07/18/2024 10:20 AM EST) Hepatitis B Surface Ag Negative Negative LAB CHEMISTRY METHOD 07/18/2024 1:45 PM EST [facility] Hepatitis A Antibody IgM Negative Negative LAB CHEMISTRY METHOD 07/18/2024 1:45 PM EST [facility] Hep B Core IgM Negative Negative LAB CHEMISTRY METHOD 07/18/2024 1:45 PM EST [facility] Hepatitis C Antibody Negative Negative LAB CHEMISTRY METHOD 07/18/2024 1:45 PM EST [facility] Blood Venous blood specimen / Unknown Venipuncture / Unknown 07/18/2024 10:20 AM EST 07/18/2024 10:20 AM EST [facility] BLOOD ORDERABLES Final Resul t Performing Organization Address [facility]/ZIP Co de Phone Number [facility] [address] [place] [address], [place] [phone] * (ABNORMAL) Hepatic function panel (07/18/2024 10:20 AM EST) Total Protein 6.8 6.0 - 8.0 g/dL LAB CHEMISTRY METHOD 07/18/2024 1:16 PM [facility] Albumin 3.7 3.2 - 5.0 g/dL LAB CHEMISTRY METHOD 07/18/2024 1:16 PM [facility] Total Bilirubin 0.5 0.0 - 1.4 mg/dL LAB CHEMISTRY METHOD 07/18/2024 1:16 PM [facility] Bilirubin, Direct 0.1 0.0 - 0.3 mg/dL LAB CHEMISTRY METHOD 07/18/2024 1:16 PM [facility] Bilirubin, Indirect 0.4 0.0 - 1.1 mg/dL LAB CHEMISTRY METHOD 07/18/2024 1:16 PM [facility] ALT (SGPT) 20 10 - 60 unit/L LAB CHEMISTRY METHOD 07/18/2024 1:16 PM [facility] Comment:Results verified by repeat testing AST (SGOT) 18 10 - 42 unit/L LAB CHEMISTRY METHOD 07/18/2024 1:16 PM [facility] Alkaline Phosphatase 131(H) 42 - 121 unit/L LAB CHEMISTRY METHOD 07/18/2024 1:16 PM [facility] Blood Venous blood specimen / Unknown Venipuncture / Unknown 07/18/2024 10:20 AM EST 07/18/2024 10:20 AM EST us Rochelle Ch[facility] BLOOD ORDERABLES Final Resul t [facility] [address] [place] [address], * US Abdomen Limited (07/18/2024 9:57 AM EST) Anatomical Region Laterality Modality Body Ultrasound 07/18/2024 11:5 1 AM EST Impressions 07/18/2024 11:54 AM EST No abnormality detected in the visualized abdominal visceral structures. ??Pancreas obscured by bowel gas. POS [id number] -------- FINAL REPORT -------- Dictated By: Naomi Treviño Dictated Date: 07/18/2024 11:51 ET Assigned Physician: Naomi Treviño Reviewed and Electronically Signed By: Naomi Treviño Signed Date: 07/18/2024 11:54 ET Workstation ID: [id number] Transcribed By: Self Edit Transcribed Date: 07/18/2024 [...] visceral structures.Pancreas obscured by bowel gas. POS [id number] -------- FINAL REPORT -------- Dictated By: Naomi Treviño Dictated Date: 07/18/2024 11:51 ET Assigned Physician: Naomi Treviño Reviewed and Electronically Signed By: Naomi Treviño Signed Date: 07/18/2024 11:54 ET Workstation ID: [id number] Transcribed By: Self Edit Transcribed Date: 07/18/2024 11:51 ET us Rochelle Charly [facility] US PROCEDURES Final Result * (ABNORMAL) Lipid panel with reflex to direct LDL (06/29/2024 11:28 AM EST) Cholesterol 270(H) 0 - 200 mg/dL LAB CHEMISTRY METHOD 06/29/2024 2:13 PM EST [facility] Triglycerides 135 0 - 150 mg/dL LAB CHEMISTRY METHOD 06/29/2024 2:13 PM EST [facility] HDL 57 >=40 mg/dL LAB CHEMISTRY METHOD 06/29/2024 2:13 PM EST [facility] LDL Calculated 186(H) 0 - 100 mg/dL LAB CHEMISTRY METHOD 06/29/2024 2:13 PM EST [facility] VLDL Cholesterol Robert 27 mg/dL LAB CHEMISTRY METHOD 06/29/2024 2:13 PM EST [facility] Non HDL Chol. (LDL+VLDL) 213(H) <145 mg/dL LAB CHEMISTRY METHOD 06/29/2024 2:13 PM EST [facility] Chol/HDL Ratio 4.7(H) 0.0 - 4.4 LAB CHEMISTRY METHOD 06/29/2024 2:13 PM EST [facility] Blood Venous blood specimen / Unknown Venipuncture / Unknown 06/29/2024 11:28 AM EST 06/29/2024 11:28 AM EST us [facility] BLOOD ORDERABLES Final Resul t [facility] [address] [place] [address], * (ABNORMAL) Comprehensive metabolic panel (06/29/2024 11:28 AM EST) [facility] Signature Sodium 138 133 - 145 mmol/L LAB CHEMISTRY METHOD 06/29/2024 2:13 PM [facility] Potassium 4.6 3.5 - 5.5 mmol/L LAB CHEMISTRY METHOD 06/29/2024 2:13 PM [facility] Chloride 109 96 - 110 mmol/L LAB CHEMISTRY METHOD 06/29/2024 2:13 PM [facility] CO2 25 21 - 32 mmol/L LAB CHEMISTRY METHOD 06/29/2024 2:13 PM [facility] Anion Gap 4 3 - 11 LAB CHEMISTRY METHOD 06/29/2024 2:13 PM [facility] Glucose 80 70 - 100 mg/dL LAB CHEMISTRY METHOD 06/29/2024 2:13 PM [facility] BUN 22 5 - 25 mg/dL LAB CHEMISTRY METHOD 06/29/2024 2:13 PM [facility] Creatinine 1.07 0.50 - 1.10 mg/dL LAB CHEMISTRY METHOD 06/29/2024 2:13 PM [facility] eGFR 57(L) >=60 mL/min/1. 73m2 LAB CHEMISTRY METHOD 06/29/2024 2:13 PM [facility] Comment:Calculation based on the??Chronic Kidney Disease Epidemiology Collaboration (CKD-EPI) equation refit??without adjustment for race. BUN/Creatinine Ratio 20.6 LAB CHEMISTRY METHOD 06/29/2024 2:13 PM [facility] Calcium 8.9 8.5 - 10.5 mg/dL LAB CHEMISTRY METHOD 06/29/2024 2:13 PM [facility] AST (SGOT) 40 10 - 42 unit/L LAB CHEMISTRY METHOD 06/29/2024 2:13 PM [facility] ALT (SGPT) 104(H) 10 - 60 unit/L LAB CHEMISTRY METHOD 06/29/2024 2:13 PM EST [facility] Alkaline Phosphatase 155(H) 42 - 121 unit/L LAB CHEMISTRY METHOD 06/29/2024 2:13 PM EST [facility] Total Protein 6.9 6.0 - 8.0 g/dL LAB CHEMISTRY METHOD 06/29/2024 2:13 PM [facility] Albumin 3.6 3.2 - 5.0 g/dL LAB CHEMISTRY METHOD 06/29/2024 2:13 PM [facility] Total Bilirubin 0.5 0.0 - 1.4 mg/dL LAB CHEMISTRY METHOD 06/29/2024 2:13 PM [facility] Blood Venous blood specimen / Unknown Venipuncture / Unknown 06/29/2024 11:28 AM EST 06/29/2024 11:28 AM EST [facility]le Ch[facility] BLOOD ORDERABLES Final Resul t [facility] [address] [place] [address], * Falls Risk Assessment (10/18/2023) Falls Risk Assessment Abstracted Historical Provider HEALTH MAINTENANCE Final Result * Depression Screening (10/18/2023) Pathologist [facility] Depression Screening Abstracted Historical Provider HEALTH MAINTENANCE Final Result from Last 3 Months or Most Recently Relevant to Health Maintenance Insurance [employer] MEDICARE Care Teams Incident Response Lead Relationship Specialty Start Date End Date Carlos Castañeda PA [address] [place] [address] PCP - General Internal Medicine 04/17/24
[2024-10-12] MEDS: oxyCODONE HCl Immed Release 5 MG TABLET PO (01:44)
--- NOTE | 2024-10-12 02:02 | ED_ITS ---
HPI - General Adult General Chief complaint: Extremity Injury, Lower Stated complaint: R ankle pain & swelling from a fall at 1530 on 10/11 Time Seen by Provider: 10/12/24 01:19 Source: patient, RN notes reviewed and old records reviewed Mode of arrival: EMS Limitations: no limitations History of Present Illness ED Provider: Griselda HPI narrative: 69-year-old female presents for evaluation of right foot and ankle pain. Patient reports that she uses a motorized scooter to get around long distances. She reports that she was using the scooter to get down the sidewalk the sidewalk was not large enough and the patient ended up tipping over on the scooter onto her right side her right foot/ ankle was pinned underneath her she has 8/10 pain to the top of her right foot and right lateral ankle denies any head injury, loss of consciousness Related Data Home Medications ?Medication ?Instructions ?Recorded ?Confirmed atorvastatin 20 mg tablet 20 mg PO DAILY 08/22/21 07/20/24 cyclobenzaprine 10 mg tablet 10 mg PO BID PRN Muscle Spasm 08/22/21 07/20/24 levothyroxine 75 mcg tablet 75 mcg PO DAILY@0600 08/22/21 07/20/24 metoprolol succinate 100 mg 100 mg PO DAILY 08/22/21 07/20/24 tablet,extended release 24 hr omeprazole 20 mg capsule,delayed 20 mg PO DAILY@0630 08/22/21 07/20/24 release ropinirole 0.25 mg tablet 0.25 mg PO BID 08/22/21 07/20/24 meclizine 25 mg tablet 25 mg PO TID PRN Dizziness 04/07/23 07/20/24 ondansetron 4 mg disintegrating 4 mg PO Q8-10H PRN Nausea 04/07/23 07/20/24 tablet amlodipine 10 mg tablet 10 mg PO DAILY 04/26/24 07/20/24 ascorbic acid (vitamin C) 250 mg 250 mg PO DAILY 04/26/24 07/20/24 tablet aspirin 81 mg tablet,delayed 81 mg PO DAILY 04/26/24 07/20/24 release cholecalciferol (vitamin D3) 10 10 mcg PO DAILY 04/26/24 07/20/24 mcg (400 unit) tablet cyanocobalamin (vitamin B-12) 1,000 mcg PO DAILY 04/26/24 07/20/24 1,000 mcg tablet lidocaine 5 % topical patch 1 patch topical DAILY PRN Pain 04/26/24 07/20/24 multivitamin 1 tab PO DAILY 04/26/24 07/20/24 tolterodine 4 mg capsule,extended 4 mg PO DAILY 04/26/24 07/20/24 release 24 hr zonisamide 100 mg capsule 100 mg PO BID PRN Nausea 04/26/24 07/20/24 spironolactone 50 mg tablet 50 mg PO DAILY 06/08/24 07/20/24 bupropion HCl 150 mg 24 hr tablet, 150 mg PO DAILY 07/20/24 07/20/24 extended release dorzolamide 22.3 mg-timolol 6.8 1 drp ophthalmic-Left Q12H 07/20/24 07/20/24 mg/mL eye drops prazosin 1 mg capsule 1 - 2 mg PO BEDTIME PRN Sleep 07/20/24 07/20/24 Previous Rx's ?Medication ?Instructions ?Recorded albuterol sulfate 90 mcg/actuation 2 puff inhalation Q4-6H PRN 01/08/24 aerosol inhaler shortness of breath or wheezing #8.5 grams walker #1 ea 05/10/24 cefuroxime axetil 250 mg tablet 250 mg PO BID 4 days #8 tabs 07/22/24 Allergies Allergy/AdvReac Type Severity Reaction Status Date / Time gluten [GLUTEN] Allergy Unknown UNKNOWN Verified 10/12/24 00:04 mushroom Allergy Unknown UNKNOWN Verified 10/12/24 00:04 Review of Systems Constitutional: Constitutional: Denies body ache(s), Denies chills, Denies fever(s) and Denies headache(s) Eyes: Eyes: Denies blurry vision ENT: Denies vertigo, Denies dizziness and Denies headache(s) Musculoskeletal: Musculoskeletal: Reports arthralgias, Reports joint swelling and Reports limited range of motion Neurologic: Denies vertigo, Denies dizziness and Denies headache(s) [facility] Past Medical History Medical History Osteopenia Glaucoma Osteoarthritis CKD (chronic kidney disease) stage 3, GFR 30-59 ml/min Vitamin D deficiency Vitamin B12 deficiency Shoulder pain, left Back pain Anxiety LOC (loss of consciousness) Bilateral leg edema Chest pain Dyspnea RLS (restless legs syndrome) Depression Presence of implantable pulmonary artery pressure and heart rate monitoring system Right knee injury Right shoulder injury Femur fracture, right Femur fracture, left delivery delivered Migraine Restless Kidney disease Heart murmur Overactive bladder Overactive adult syndrome Thyroid disease Hyperlipidemia Hypertension Surgical History History of cataract surgery (~05/2024) History of surgery Social History Social History Household Members: Spouse Housing: Apartment Do you presently have visiting nurse or other home services: No Alcohol intake: current Alcohol intake frequency: 3 or more drinks per day Alcohol type: hard liquor Patient Tobacco Use Status: Never used Tobacco Second Hand Smoke Exposure: No Substance Use Type: Marijuana Advance Directives: Yes Advance Directives on File: Yes Advance Directives Date on File: 09/10/20 Do you have a plan to hurt others: No Plan service: No Physical Exam ED Vital Signs: Vital Signs - 24 hr 10/12/24 00:01 10/12/24 02:27 Temperature 98.3 F 98.4 F Pulse Rate 61 60 Respiratory Rate 16 16 Blood Pressure 126/37 L 125/37 L Pulse Oximetry 98 99 Oxygen Delivery Method Room Air Room Air BMI result Body Mass Index 34.0 Const General: healthy appearing, comfortable, no acute distress, alert and awake Nutritional Appearance: well nourished Orientation/consciousness: patient oriented x3 HENMT Head: Yes normocephalic and Yes atraumatic Eyes Eyelids: Yes eyelids normal Conjunctivae: conjunctivae normal Sclerae: sclerae normal Corneas: corneas normal Pupils: Equal, round and reactive pupils present EOM: EOMs intact bilaterally Neck Neck: Yes full ROM Resp Effort & Inspection: normal respiratory effort, able to speak in complete sentences and not labored Auscultation: clear to auscultation bilaterally Cardio Rate: regular rate Rhythm: regular rhythm GI Inspection: No distended Palpation (GI): Soft to palpation, not firm, nontender, no guarding and not rigid Skin General skin exam: elasticity normal Neuro General: patient oriented x3 Cranial nerves: Yes Equal, round and reactive pupils present and Yes Bilaterally intact EOM present Cognition (Neuro): normal cognition Extrem Other: There is mild edema to the right lateral ankle and dorsum of the right foot. There was no tenderness of the right lateral malleolus. There is tenderness over the proximal right midfoot and dorsum of the foot. No obvious deformity Medications Administered Discontinued Medications Generic Name Dose Route Start Last Admin Trade Name Edyq PRN Reason Stop Dose Admin Oxycodone HCl 5 mg 10/12/24 01:24 10/12/24 01:44 Oxycodone Hcl Immed Release 5 Mg Tablet PO 10/12/24 01:25 5 mg ONCE ONE Administration Medical Decision Making Medical Decision Making MDM Narrative: 69-year-old female presents for evaluation of right foot and ankle pain. She accidentally tripped over her motorized scooter and twisted her right foot /ankle. X-rays of the ankle are negative. X-rays of the right foot are pending. Differential Diagnosis Differential Diagnoses: The differential diagnosis associated with the presentation includes ankle sprain Ankle fracture Foot sprain Foot fracture Contusion Independent Interpretation I performed an independent interpretation of an: Plain X-Ray ( agree with Radiology interpretation, no obvious fracture) Radiology Impression Discussion of test interpretation with radiology: I have reviewed the radiologist's reading. Radiologist Impression: Findings: There is soft tissue swelling. There is no fracture or dislocation. Joint spaces appear normal. Impression: No osseous abnormality. This document has been electronically signed by: Rusty العلي MD on 10/12/2024 00:56:02 Findings: There appears to be mild dorsal soft tissue swelling. There is no fracture or dislocation. Joint spaces appear normal. There is no radiopaque foreign body. Impression: No acute osseous abnormality. This document has been electronically signed by: Rusty العلي MD on 10/12/2024 02:30:15 Discharge Plan Discharge Clinical Impression: Ankle sprain Patient Disposition: Home, Self-Care Instructions: Ankle Sprain (ED) Additional Instructions: your x-rays did not show any evidence of fracture you likely have a Ankle sprain/foot sprain. You may ambulate as you can tolerate. You may use the crutches to get around short distances. Ice the area every 4 hours for 10-15 minutes. You may use ibuprofen / Tylenol for pain. Elevate the leg above your heart while resting Prescriptions: No Action (DME) walker Misc See Rx Instructions .Route Qty: 1 0RF Rx Instructions: As directed prazosin 1 mg capsule 1 - 2 mg PO BEDTIME PRN (Reason: Sleep) dorzolamide-timolol 22.3-6.8 mg/mL drops 1 drp ophthalmic-Left Q12H bupropion HCl 150 mg tablet extended release 24 hr 150 mg PO DAILY cefuroxime axetil 250 mg tablet 250 mg PO BID 4 Days Qty: 8 0RF albuterol sulfate 90 mcg/actuation HFA aerosol inhaler 2 puff inhalation Q4-6H PRN (Reason: shortness of breath or wheezing) Qty: 8.5 0RF amlodipine 10 mg tablet 10 mg PO DAILY aspirin 81 mg Tablet,Delayed Release (Dr/Ec) 81 mg PO DAILY ascorbic acid (vitamin C) 250 mg Tablet 250 mg PO DAILY multivitamin Tablet 1 tab PO DAILY tolterodine 4 mg capsule,extended release 24hr 4 mg PO DAILY cyanocobalamin (vitamin B-12) 1,000 mcg Tablet 1,000 mcg PO DAILY zonisamide 100 mg capsule 100 mg PO BID PRN (Reason: Nausea) lidocaine 5 % adhesive patch,medicated 1 patch topical DAILY PRN (Reason: Pain) cholecalciferol (vitamin D3) 10 mcg (400 unit) Tablet 10 mcg PO DAILY omeprazole 20 mg capsule,delayed release(DR/EC) 20 mg PO DAILY@0630 ropinirole 0.25 mg tablet 0.25 mg PO BID levothyroxine 75 mcg tablet 75 mcg PO DAILY@0600 atorvastatin 20 mg tablet 20 mg PO DAILY cyclobenzaprine 10 mg tablet 10 mg PO BID PRN (Reason: Muscle Spasm) metoprolol succinate 100 mg tablet extended release 24 hr 100 mg PO DAILY ondansetron 4 mg tablet,disintegrating 4 mg PO Q8-10H PRN (Reason: Nausea) meclizine 25 mg tablet 25 mg PO TID PRN (Reason: Dizziness) spironolactone 50 mg tablet 50 mg PO DAILY Print Language: Divehi
[2024-10-12 02:27] VITALS: BP 125/37; PULSE 60; RESP 16; TEMP 36.9; O2SAT 99
[2024-10-12 03:28] VITALS: BP 125/37; PULSE 60; RESP 16; TEMP 36.9; O2SAT 99
== END 2024-10-12 03:29 | disposition home or self-care (01) ==
PROVIDERS: Emergency Provider Emergency Medicine
DX: S93.401A Sprain of unspecified ligament of right ankle, initial encounter (principal); W05.2XXA Fall from non-moving motorized mobility scooter, initial encounter; M25.571 Pain in right ankle and joints of right foot; Y93.89 Activity, other specified; Y92.410 Unspecified street and highway as the place of occurrence of the external cause; Y99.9 Unspecified external cause status
CPT/HCPCS: 73600; 73620; 99283; 99284

== ENCOUNTER → 2024-10-12 00:10 | Outpatient (BNV) | payer OTHER, SELFPAY | PROVIDERS: Visit Provider Radiology Diagnostic Radiology | DX: M25.571 Pain in right ankle and joints of right foot (principal); M79.671 Pain in right foot | CPT/HCPCS: 73600; 73620 ==

== ENCOUNTER 2024-11-16 09:04 | Outpatient (REF) | payer OTHER, SELFPAY ==
--- OUTSIDE RECORDS SUMMARY | 2024-11-16 09:40 | XMS_ITS | Data Portability ---
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 Tapp[employer] speech recognition claim agent software was used to create portions of [...] trapezium fracture intririsic tightness, aprom, stretch, strength, pmp 2023 024 [facility] [place], [address], [place], [address], 4 08:09:10 Procedures None recorded. Surgeries None recorded. Imaging XR, shoulder, 2 or more view - 4V LT SHOULDER ROOM 212 2024 025 [email or web address] [facility], [address], [facility] [address], [place], [address], 5 14:36:49 Medication Orders None recorded. Patient TargetsNo targets recorded. Patient Instructions Encounter Date Encounter Id Patient Instructions Last Modified By Organization Details Last Modified Time 02/04/2024 [id number] cast removal* - cast off no xrays rm 108 vinay Not available 02/04/2024 12:07:59 Reason for Referral Occupational Therapist Refer ral for Closed fracture of scaphoid bone of wrist right trapezium fracture intririsic tightness, aprom, stretch, strength, pmp Referring Physician: Karley Nicholas, Orthopedic Surgery, Encounter Date: 02/23/2024 Results Created Date Observation Date Name Description Value Unit Range Abnormal Flag Note LastModifiedBy Organization Detail LastModifiedTime 12/29/19 24 12/29/2023 CT, wrist , w/o contr ast No observ ation record ed. [facility] [address] [place], [address], 12/30/2023 16:37:19 12/29/19 24 12/29/2023 CT, wrist , w/o contr ast No observ ation record ed. [facility] - [address], [place], [address], 12/30/2023 16:37:20 02/04/20 24 08/30/2018 imagi ng/di agnos tic resul t No observ ation record ed. [email or web address] Not Available 01/07 23:00:44 09/28/19 25 09/27/2024 XR, shoul manfred, 2 or more view [email or web address]:/ [email or web address] ?Encry pted=s hAaTro YD8dLq bEUv6g %2BXZw aYqtaq 0bqfl% 2Fg9IQ a4ajBk vP9nXo QUaueC m3YtLR FvZlgJ JJ8mAn HZtai3 9v5417 AC0Kla n2NU6G nKiQtr MwF INTERFACE [facility] [address] [facility] [address], [place], [address], 09/27/2024 13:28:58 09/28/19 25 09/27/2024 XR, shoul manfred, 2 or more view [email or web address] ?Encry pted=s hAaTro YD8dLq bEUv6g %2BXZw aYqtaq 0bqfl% 2Fg9IQ a4ajBk vP9nXo QUaueC m3YtLR FvZlgJ JJ8mAn HZtai3 2g7731 AC0Kla n2NU6G nKiQtr MwF INTERFACE [facility] [address] [facility] [address], [place], [address], 09/27/2024 13:29:00 Result Notes None recorded. Problems Name Problem SNOMED Code Status Onset Date Resolution Date Notes Provider Name and Address Organization Details Recorded Time Pain of left shoulder joint 551308521261 41708 Active 2015 Problem Code: M25.512; Problem Code Type: ICD-10; Status: 'A'; Not Available [facility] 4 11:59:31 Impingeme nt syndrome of left shoulder region 305656145800 104 Active 2015 Problem Code: M75.42; Problem Code Type: ICD-10; Status: 'A'; Not Available [facility] 4 11:59:31 Problem Notes None recorded. Procedures Surgical History Date Name Laterality Status Provider Name and Address Organization Details Recorded Time 4 Cast_Thumb Spica_11+ completed MESFIN GALLOWAY [facility] 01/31/2024 10:12:54 4 Cast Removal completed MESFIN GALLOWAY [facility] 01/31/2024 10:11:26 4 Cast_Thumb Spica_11+ completed Roxana Carranza [facility] 01/18/2024 12:07:09 4 Cast Removal completed Roxana Carranza [facility] 01/18/2024 12:02:40 4 Cast_Short Arm/Ulnar Gutter/Radia l Gutter_11+ completed MESFINDANA GALLOWAY [facility] 12/21/2023 10:36:46 4 Cast Removal completed MESFINDANA GALLOWAY [facility] 12/21/2023 10:35:41 Imaging Results None recorded. Procedure Notes None recorded. Medical Equipment None Reported. Allergies Allergen ID Allergen Name Allergen Category Reaction Reaction Severity Criticality Documentation Date Start Date Code Code System Note Provider Name and Address Organization Details Recorded Time 54926 wheat preparati on food,medi cation Not available Not available Not available 08/09/20232008 82545 52 RxNorm Aller gyRea ction : 'O'; Not Available [facility] 4 12:09:06 86588 cultivate d mushroom extract food Not available Not available Not available 08/09/20232015 26170 17 RxNorm Not Available [facility] 4 12:09:06 Medications Name Sig Start Date [...] Updated DateTime 09/27/2024 162.56 cm 30 kg/m2 56850.66 g BAYLEE KESHIA [facility] 09/27/2024 13:17:08 Date Recorded Body height Body mass index (BMI) Body weight Provider Name and Address Organization Details Last Updated DateTime 02/04/2024 134.62 cm 45.1 kg/m2 71642.63 g [facility] 02/04/2024 10:21:51 Date Recorded Body height Body mass index (BMI) Body weight Provider Name and Address Organization Details Last Updated DateTime 02/23/2024 162.56 cm 30 kg/m2 40425.66 g [facility] 02/23/2024 09:05:54 Social History None recorded. Functional Status None recorded. Mental Status None recorded. Family History Nothing Reported. Medical History Condition Response Allergies/Hayfever N Coronary Artery Disease N Anxiety/Depression N Breathing or lung disorders N Emphysema N Nerve Disorders N Thyroid Problems N COPD N Pacemaker N Anemia N Kidney/Bladder Problems Y Vascular Disease N Heart Trouble Y Heart Attack (OR) N Gastrointestinal Disease Y Cholesterol Y Diabetes N Autoimmune disease N Bleeding Disorder N Inflammatory Joint disease N Orthotics N Arthritis N Seizures/Epilepsy N Blood Clot N AIDS/HIV N Congestive Heart Failure (CHF) N Acid Reflux (GERD) N Cancer N Stroke N Asthma N Circulation Problems N Peripheral Vascular Disease N Sleep Apnea N Hepatitis N Heart Disease N Rheumatoid Arthritis N Arrhythmia N Pulmonary Embolism N Headaches N Fibromyalgia N Hypertension Y Osteoporosis N Gynecological HistoryNo gynecological history recorded. Obstetrics History GPAL:G 0 P 0 0 0 0 Past Encounters Encounter ID Performer Location Encounter Start Date Encounter Closed Date Diagnosis/Indication Diagnosis SNOMED-CT Code Diagnosis ICD10 Code Diagnosis Note [id number] Karley Casartello , PA-C [facility] [address] [place] [address] 12/07/2023 08:45:24 12/31/2023 14:57:04 Closed fracture of scaphoid bone of wrist 07123958 S62.001A [id number] Karley LOREN Nicholas [facility] [address] [place] [address] 12/08/2023 09:38:20 12/08/2023 10:02:20 Closed fracture of scaphoid bone of wrist 73614152 S62.001A [id number] Karleyade Nicholas PA-C [facility] [address] [place] [address] 12/21/2023 10:09:58 12/21/2023 10:38:02 Closed fracture of navicular bone of right wrist 4227369769 5841480 S62.001A [id number] Karley Nicholas PA-C [facility] [address] [place] [address] 01/05/2024 08:40:38 02/03/2024 11:19:53 Pain of right wrist 5540699632 50225 M25.843 [id number] Karleyade Nicholas PA-C [facility] [address] [place] [address] 01/18/2024 11:35:16 01/18/2024 12:09:18 Pain of right wrist 7719732089 24440 M25.960 [id number] Karley Nicholas PA-C [facility] [address] [place] [address] 01/31/2024 09:51:45 01/31/2024 10:15:26 Pain of right wrist 6044358464 34953 M25.800 [id number] Karleyade Nicholas PA-C [facility] [address] [place] [address] 02/04/2024 09:40:33 02/28/2024 14:08:17 Pain of right wrist 8488843761 78245 M25.531 Closed fra cture of scaphoid bone of wrist 04927939 S62.001A [id number] L[facility] Work[facility] [address] [place] [address] 02/23/2024 09:00:30 03/16/2024 08:09:10 Closed fracture of scaphoid bone of wrist 39533286 S62.001A [id number] MD BRITTANI P[facility] - [facility] [address] [place] [address] 09/27/2024 12:13:01 10/04/2024 14:36:49 Pain of left shoulder joint 4437570633 3279896 M25.512 Health Concerns Section Related Observation LastModified by Organization Detai ls LastModified Time None Recorded Concern Status LastModified by Organization Details LastModified Time None Recorded Advance Directives Directive None Recorded Payers Insurance Date Sequence Insurance Name Policy Number Policy George Covered Member ID George Member ID Guarantor Name 09/19/2024 1 [facility] - DOS ON OR AFTER 2022 - [facility] (MEDICARE REPLACEMENT/ADV ANTAGE - HMO) Lauren Lmeos [id number] Lauren Lemos 10/04/2024 1 [facility] (MEDICARE REPLACEMENT/ADV ANTAGE - HMO) Lauren Lemos [id number] Lauren Lemos 09/20/2024 1 [place]: [employer] Lauren Lemos [id number] Lauren Lemos Notes Date Note Type Note [...] carpal tunnelX-rays ordered, obtained and reviewed at [facility]: None performed today, previousCT scan demonstrates evidence [...] for any further questions or concerns.Speech recognition claim agent software was used to create portions of [...] our office immediately. Karley Nicholas PA-C [address] [facility] [address], [place], [address], [facility] 02/04/2024 12:28:41 02/23/2024 text/html I am seeing [...] carpal tunnelX-rays ordered, obtained and reviewed at [facility]: None performed today, previousCT scan demonstrates evidence [...] for any further questions or concerns.Speech recognition claim agent software was used to create portions of [...] our office immediately. Karley Nicholas PA-C [address] [facility] [address] [facility], [place], [address], [facility] 02/24/2024 21:38:26 OBGyn Episode No OBEpisode recorded.
== END 2024-11-16 09:05 | disposition home or self-care (01) ==
LOC: HO.MAMMO 09:04
PROVIDERS: PCP Physician Assistant Medical; Visit Provider Physician Assistant Medical
DX: Z12.31 Encounter for screening mammogram for malignant neoplasm of breast (principal)
CPT/HCPCS: 77063; 77067

== ENCOUNTER → 2024-11-16 09:30 | Outpatient (BNV) | payer OTHER, SELFPAY | PROVIDERS: PCP Physician Assistant Medical; Visit Provider Internal Medicine | DX: Z12.31 Encounter for screening mammogram for malignant neoplasm of breast (principal) | CPT/HCPCS: 77063; 77067 ==

== ENCOUNTER 2024-12-09 05:20 | Emergency (ER) | payer OTHER, SELFPAY ==
--- NOTE | 2024-12-09 | ECG_ITS ---
Test Reason : FALL Blood Pressure : */* mmHG Vent. Rate : 53 BPM Atrial Rate : 53 BPM P-R Int : 186 ms QRS Dur : 110 ms QT Int : 502 ms P-R-T Axes : 46 57 72 degrees QTcB Int : 471 ms Sinus bradycardia RSR' or QR pattern in V1 suggests right ventricular conduction delay Borderline ECG When compared with ECG of 16-Feb-2024 00:30, Vent. rate has decreased by 28 bpm Referred By: Generic ED Physician Electronically Signed By: IRA AARON MD
--- NOTE | ~2024-12-09 | XR_ITS ---
CLINICAL HISTORY: s p fall 1 view chest x-ray Comparison: CR/SR - XR CHEST 2V - 01/08/24 00:11 EDT Findings: No consolidation or effusion. The heart is normal in size. Electronic device overlies the left lower thorax. Remote right 6th and 7th and left 4th rib fracture deformities are again noted. No acute fracture is identified. IMPRESSION: No acute cardiopulmonary abnormality. This document has been electronically signed by: Capri Schwab on 12/09/2024 08:15:35
--- NOTE | ~2024-12-09 | CT_ITS ---
CLINICAL HISTORY: s p fall CT cervical spine without contrast Comparison: None provided Findings: Vertebral alignment is within normal limits. There is multiple level degenerative disc, facet, and uncovertebral joint change. No acute fractures or dislocations. No acute findings on limited view of the intracranial contents. No cervical fluid collections or masses. No consolidation or effusion at the lung apices. IMPRESSION: No acute findings. This document has been electronically signed by: Jose De Jesus Koch MD on 12/09/2024 08:54:23
--- NOTE | ~2024-12-09 | CT_ITS ---
CLINICAL HISTORY: s p fall CT head without contrast Comparison: 05/22/2022 Findings: No new intra-axial mass, midline shift, hydrocephalus, or acute hemorrhage. No significant atrophy-like change or white matter disease. There is no sinus or mastoid fluid. The orbits are unremarkable. No skull fracture. IMPRESSION: 1. No acute intracranial findings. This document has been electronically signed by: Jose De Jesus Koch MD on 12/09/2024 08:57:52
[2024-12-09 05:32] VITALS: BP 110/70; PULSE 80; O2SAT 97
[2024-12-09 05:35] VITALS: BP 142/54; PULSE 57; RESP 15; TEMP 36.8; O2SAT 98; BMI 36.0
[2024-12-09 06:11] LABS: Appearance Urine Clear; Glucose Urine UA Negative (Negative); PH 5.5 (5.0-9.0); Specific Gravity - Urine <= 1.005 (1.005-1.025); UMIC TRIGGER UACC YES
[2024-12-09 06:18] LABS: MANUAL DIFF FLAG NO
[2024-12-09 06:20] LABS: Hematocrit 45.3 % (37.0-47.0); Hemoglobin 15.0 g/dl (12.0-16.0); Imm Gran Abs Auto 0.08 X10*3/uL (0.00-0.03); Imm Gran Pct Auto 1.0 % (0.0-0.4); Lymphocytes Absolute Auto 2.7 X10*3/uL (1.2-4.9); Mean Corpuscular HGB Conc 33.1 g/dl (31.0-35.0); Mean Corpuscular Hemoglobin 30.5 pg (27.0-33.0); Mean Corpuscular Volume 92.1 fL (80.0-98.0); NRBC Abs Auto 0.000 X10*3/uL (0.0-0.012); NRBC Pct Auto 0.0 /100WBC (0.0-0.2); Platelet Count 196 X10*3/uL (160-400); Red Blood Count 4.92 X10*6/uL (4.20-5.50); White Blood Count 7.8 X10*3/uL (4.8-10.8)
[2024-12-09 06:25] LABS: Cannabinoid Screen Urine Not Detected (Not Detect)
--- OUTSIDE RECORDS SUMMARY | 2024-12-09 06:38 | XMS_ITS | Clinical Summary ---
Author Organization [facility] [address] [place] [address] [place] [phone] Phone Care Team Providers Care Bulb Inspector Name Role Phone Carlos Castañeda Primary Care Provider [phone] Allergies Active Allergy Reactions Criticality Noted Date [...] time each day. 90 tablet 5 Active aspirin 81 mg EC tablet [...] time each day. 90 tablet 5 Active meclizine (ANTIVERT) 25 mg tablet Take 1 Tablet by mouth 3 times daily as needed (vertigo). 30 tablet 5 Active omeprazole (PriLOSEC) [address] capsule Take 1 capsule (20 mg total) by mouth 1 (one) time each day. Do not crush or chew. 90 capsule 5 Active spironolactone (Aldactone) 50 mg tablet [...] 2 (two) times a day. 180 tablet 5 Active metoprolol succinate (TOPROL-XL) 100 mg 24 hr tablet Take 1 tablet (100 mg total) by mouth 1 (one) time each day. Do not crush or chew. 90 tablet 5 Active albuterol HFA (ProAir HFA) 90 [...] 12 hours. 30 each 11 5 Active ondansetron (ZOFRAN) 4 mg tablet Take 1 tablet (4 mg total) by mouth every 8 (eight) hours if needed for nausea. 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 She has a [employer] ILR that was placed in July 2021 [...] a different antihypertensive. LOC (loss of consciousness) (CMS/[facility] V24, CMS/HC C V28) 05/07/2020 Overview (03/09/2024): [...] kidney disease) stage 3, GFR 30-59 ml/min ([facility] V24, [facility] V28) 08/24/2018 Osteoarthritis 09/08/2016 Glaucoma 08/14/2016 Osteopenia 11/06/2015 Encounters Date Type Department Care Team Description 11/10/2024 Telephone [facility] [address] [place] [address] Mark Acuña MD 09/21/2024 10:20 AM EDT Ancillary Procedure [facility] - [address] [place] [address] 09/20/2024 Telephone [facility] - [address] [place] [address] Sona Nieves MA from Last 3 Months Immunizations Name Administration [...] 6mo and older 01/22/2020,02/13/2017,05/13/2016 Influenza, Unspecified 01/22/2020,02/12/2019 [facility] SARS-CoV-2 COVID-19, mRNA, LNP-S, preservative free 06/02/2022,04/30/2021,10/26/2020,2020 [...] HISTORICAL ROTATOR CUFF REPAIR FEMUR FRACTURE SURGERY 2005 Right PROCEDURE: MS OPEN TX FEMORAL FRACTURE DISTAL MED/LAT CONDYLE [...] Sex Female 1:47 AM EST Gender Identity Female 12/08/2024 7:02 PM EDT Sexual Orientation Straight 12/08/2024 7: 02 PM EDT Obstetrics History Last Filed Vital Signs Vital Sign Reading Time Taken Comments Blood Pressure 138/77 08/24/2024 1:05 PM EDT Pulse 62 08/24/2024 1:05 PM EDT Temperature 36.7 C (98 F) 06/29/2024 10:12 AM EST Respiratory Rate 12 06/29/2024 10:12 AM EST Oxygen Saturation - - Inhaled Oxygen Concentration - - Weight 86.2 kg (190 lb) 08/14/2024 9:40 AM EDT Height 162.6 cm (5' 4 ) 06/29/2024 10:12 AM EST Body Mass Index 32.61 06/29/2024 10:12 AM EST Plan of Treatment Upcoming Encounters Date Type Department Care Team (Late st Contact Info) Description 12/11/2024 9:30 AM EDT Office Visit Adult Medicine [facility] [address] [place], [place] [phone] Rochelle Parks PA [address] [place], [place] 12/21/2024 10:10 AM EDT Office Visit [facility] [address] [place] [address] Nanette Wyatt PA [address] [place] [address] Health Maintenance Due Date Last Done Comments Colorectal Cancer Screening: Stool Based Tests (FOBT/FIT) 05/16/2022 Osteoporosis Screening (Bone Density Screening) 05/16/2022 Social Influencers of Health Screening 05/16/2022 Depression Screening 10/17/2024 10/18/2023 Falls Risk Assessment 10/17/2024 10/18/2023 Influenza Vaccine (#1) 2025 , 03/16/2023, 07/20/2022, Additional history exists Hypertension/CHF/CAD Annual BMP Blood Test 06/29/2025 06/29/2024, 10/20/2022 Breast Cancer Screening 11/16/2026 11/16/2024 Cholesterol Screening (Lipid Panel) 06/29/2029 06/29/2024, 10/27/2023, 10/27/2023 DTaP,Tdap,and Td Vaccines (4 - Td or Tdap) 11/27/2029 11/28/2019, 08/14/2016, 09/27/2008 Medicare Annual Wellness Visit Discontinued 10/18/2023 RSV Immunization Adult Patients Completed 04/25/2024 Zoster [...] this topic Medical Devices Implanted Type Area Medical Research Associate Device Identifier Shelf Expiration Date Model / Serial / Lot [id number]-[id number] Implanted:07/08 (Quantity not on file) Cardiac Loop Recorder [employer] CARD RHYTHM MGMT [id number] / [id number] / Procedures Procedure Name Priority Date/Time Associated Diagnosis Comments EXTERNAL MAMMOGRAM REPORT 11/16/2024 CARDIAC DEVICE CHECK- REMOTE- MURJ Routine 09/21/2024 10:19 AM EDT HEPATITIS PANEL, ACUTE WITH REFLEX TO CONFIRMATION Routine 07/18/2024 10:20 AM EST Elevated LFTs COMPREHENSIVE METABOLIC PANEL Routine 06/29/2024 11:28 AM EST Primary hypertension LIPID PANEL WITH REFLEX TO DIRECT LDL Routine 06/29/2024 11:28 AM EST Pure hypercholesterolemia DEPRESSION SCREENING Routine 10/18/2023 FALLS RISK ASSESSMENT Routine 10/18/2023 from Last 3 Months or Most Recently Relevant to Health Maintenance Results * External Mammogram Report (11/16/2024) Anatomical Region Laterality Modality Mammography Provider [facility] IMG BI PROCEDURES Final Result * Cardiac device check - Remote- MURJ (09/21/2024 10:19 AM EDT) Date Time Interrogation Session [id number] CV DEVICE CHECK Type Interrogation Session Remote Device Initiated CV DEVICE CHECK Implantable Pulse Generator Medical Research Associate BSX CV DEVICE CHECK Implantable Pulse Generator Type ILR CV DEVICE CHECK Implantable Pulse Generator Model M301 CV DEVICE CHECK Implantable Pulse Generator Serial Number [id number] CV DEVICE CHECK Implantable Pulse Generator Implant Date [id number] CV DEVICE CHECK Battery Status Recommended Replacement Time CV DEVICE CHECK Atrial Tachy Statistic AT/AF [place] Percent 0.00 CV DEVICE CHECK Date of Service 2024-10-15 CV DEVICE CHECK Anatomical Region Laterality Modality Device Interroga tion 09/20/2024 1:56 AM EDT Impressions 09/21/2024 10:16 AM EDT Low Battery Indicator * Low battery condition met and device replacement indicator triggered * Current battery status: [employer], * Message sent to scheduling to book patient for ILR removal talk Narrative Procedure Note Katiana Romero NP - 09/21/2024 IMPRESSION: Low Battery Indicator * Low battery condition met and device replacement indicator triggered * Current battery status: [employer] HAND, * Message sent to scheduling to book patient for ILR removal talk Katiana Romero NP CV IMPLANTABLE CARDIAC DEVICE PROCEDURES Final Result * Hepatitis panel, acute with reflex to confirmation (07/18/2024 10:20 AM EST) Hepatitis B Surface Ag Negative Negative LAB CHEMISTRY METHOD 07/18/2024 1:45 PM EST [facility] Hepatitis A Antibody IgM Negative Negative LAB CHEMISTRY METHOD 07/18/2024 1:45 PM EST [facility] Hep B Core IgM Negative Negative LAB CHEMISTRY METHOD 07/18/2024 1:45 PM EST [facility] Hepatitis C Antibody Negative Negative LAB CHEMISTRY METHOD 07/18/2024 1:45 PM [facility] Blood Venous blood specimen / Unknown Venipuncture / Unknown 07/18/2024 10:20 AM EST 07/18/2024 10:20 AM EST us [facility] BLOOD ORDERABLES Final Resul t [facility] [address] [place] [address], [place] [phone] * (ABNORMAL) Lipid panel with reflex to direct LDL (06/29/2024 11:28 AM EST) Cholesterol 270(H) 0 - 200 mg/dL LAB CHEMISTRY METHOD 06/29/2024 2:13 PM [facility] Triglycerides 135 0 - 150 mg/dL LAB CHEMISTRY METHOD 06/29/2024 2:13 PM [facility] HDL 57 >=40 mg/dL LAB CHEMISTRY METHOD 06/29/2024 2:13 PM [facility] LDL Calculated 186(H) 0 - 100 mg/dL LAB CHEMISTRY METHOD 06/29/2024 2:13 PM [facility] VLDL Cholesterol Robert 27 mg/dL LAB CHEMISTRY METHOD 06/29/2024 2:13 PM [facility] Non HDL Chol. (LDL+VLDL) 213(H) <145 mg/dL LAB CHEMISTRY METHOD 06/29/2024 2:13 PM [facility] Chol/HDL Ratio 4.7(H) 0.0 - 4.4 LAB CHEMISTRY METHOD 06/29/2024 2:13 PM [facility] Blood Venous blood specimen / Unknown Venipuncture / Unknown 06/29/2024 11:28 AM EST 06/29/2024 11:28 AM EST us Rochelle Charly [facility] BLOOD ORDERABLES Final Resul t [facility] [address] [place] [address], * (ABNORMAL) Comprehensive metabolic panel (06/29/2024 11:28 AM EST) Sodium 138 133 - 145 mmol/L LAB CHEMISTRY METHOD 06/29/2024 2:13 PM EST [facility] Potassium 4.6 3.5 - 5.5 mmol/L LAB CHEMISTRY METHOD 06/29/2024 2:13 PM [facility] Chloride 109 96 - 110 mmol/L LAB CHEMISTRY METHOD 06/29/2024 2:13 PM [facility] CO2 25 21 - 32 mmol/L LAB CHEMISTRY METHOD 06/29/2024 2:13 PM [facility] Anion Gap 4 3 - 11 LAB CHEMISTRY METHOD 06/29/2024 2:13 PM [facility] Glucose 80 70 - 100 mg/dL LAB CHEMISTRY METHOD 06/29/2024 2:13 PM [facility] BUN 22 5 - 25 mg/dL LAB CHEMISTRY METHOD 06/29/2024 2:13 PM [facility] Creatinine 1.07 0.50 - 1.10 mg/dL LAB CHEMISTRY METHOD 06/29/2024 2:13 PM [facility] eGFR 57(L) >=60 mL/min/1. 73m2 LAB CHEMISTRY METHOD 06/29/2024 2:13 PM [facility] Comment:Calculation based on the Chronic Kidney Disease Epidemiology Collaboration (CKD-EPI) equation refit without adjustment for race. BUN/Creatinine Ratio 20.6 LAB CHEMISTRY METHOD 06/29/2024 2:13 PM [facility] Calcium 8.9 8.5 - 10.5 mg/dL LAB CHEMISTRY METHOD 06/29/2024 2:13 PM [facility] AST (SGOT) 40 10 - 42 unit/L LAB CHEMISTRY METHOD 06/29/2024 2:13 PM EST [facility] ALT (SGPT) 104(H) 10 - 60 unit/L LAB CHEMISTRY METHOD 06/29/2024 2:13 PM [facility] Alkaline Phosphatase 155(H) 42 - 121 unit/L LAB CHEMISTRY METHOD 06/29/2024 2:13 PM [facility] Total Protein 6.9 6.0 - 8.0 g/dL LAB CHEMISTRY METHOD 06/29/2024 2:13 PM [facility] Albumin 3.6 3.2 - 5.0 g/dL LAB CHEMISTRY METHOD 06/29/2024 2:13 PM [facility] Total Bilirubin 0.5 0.0 - 1.4 mg/dL LAB CHEMISTRY METHOD 06/29/2024 2:13 PM [facility] Blood Venous blood specimen / Unknown Venipuncture / Unknown 06/29/2024 11:28 AM EST 06/29/2024 11:28 AM EST [facility] BLOOD ORDERABLES Final Resul t [facility] [address] [place] [address], * Falls Risk Assessment (10/18/2023) Falls Risk Assessment Abstracted Historical Provider HEALTH MAINTENANCE Final Result * Depression Screening (10/18/2023) Depression Screening Abstracted Historical Provider HEALTH MAINTENANCE Final Result from Last 3 Months or Most Recently Relevant to Health Maintenance Insurance [facility] Member Subscriber Plan / Payer (Ef fective 2024-Present) Name:Lauren Lemos Relation to Subscriber:Self Name:Lauren Lemos Payer ID:[id number] Group ID:[id number] Type:Not on file Address: [place] [address] [place] [phone] Care Teams Bulb Inspector Relationship Specialty Start Date End Date Carlos Castañeda PA [address] [place] [address] PCP - General Internal Medicine 04/17/24
--- OUTSIDE RECORDS SUMMARY | 2024-12-09 06:38 | XMS_ITS | Data Portability ---
Author Organization [place] Jonny Tovar [facility], [facility] Address [address] [place] [address] Care Team Providers Care Nut Orchardist Name Role Phone SUKI CASE Primary Care Provider Assessment Encounter Date Assessment [...] a preoperative visit. Detailed discussion regarding the patient s pathoanatomy, and treatment options conducted. The risks and benefits, potential complications including but not limited to infection, stiffness, neurovascular injury, fracture, early or late prosthetic loosening, need for hardware removal, dislocation all discussed in detail. I explained that not all patients experience complete pain relief and voodoo of full function with this procedure, and [...] an informed decision to proceed with surgery. [facility] speech recognition dealer analyst software was used to create portions of this document. An attempt at proofreading has been made to minimize errors. Please call for corrections. [email or web address] Not available 09/27/2024 14:27:23 Plan of Treatment Reminders Order Date Submit Date Provider Last Modified By Organization Details Last Modified Time Details Appointments MED CLEAR ONLY 15 2024 01:00P M Guillermo Carter MD Not available Not available Not available DME 2024 01:15P M DINESH Shields Not available Not available Not available SURGERY @ [place] 2024 10:00A M Guillermo Carter MD Not available Not available Not available POST OP 15 2024 09:30A M Niranjan roblero PA-C Not available Not available Not available PT INITIAL EVAL 2024 10:30A M Morro Herrera, PT Not available Not available Not available PT FOLLOW-UP 2024 11:00A M Carmen Garrison, MOLASSES AND CARAMEL OPERATOR Not available Not available Not available PT FOLLOW-UP 2024 09:30A M Carmen Garrison, MOLASSES AND CARAMEL OPERATOR Not available Not available Not available PT FOLLOW-UP 2024 08:30A M Morro Herrera, PT Not available Not available Not available PT FOLLOW-UP 2024 10:30A M Morro Pyser, PT Not available Not available Not available PT FOLLOW-UP 2024 07:30A M Carmen Quebradillas, MOLASSES AND CARAMEL OPERATOR Not available Not available Not available PT FOLLOW-UP 2024 10:00A M Carmen Quebradillas, MOLASSES AND CARAMEL OPERATOR Not available Not available Not available PT FOLLOW-UP 2024 07:30A M Carmen Quebradillas, MOLASSES AND CARAMEL OPERATOR Not available Not available Not available PT FOLLOW-UP 2024 10:00A M Carmen Quebradillas, MOLASSES AND CARAMEL OPERATOR Not available Not available Not available PT FOLLOW-UP 2024 09:30A M Carmen Quebradillas, MOLASSES AND CARAMEL OPERATOR Not available Not available Not available PT FOLLOW-UP 2024 10:00A M Carmen Quebradillas, MOLASSES AND CARAMEL OPERATOR Not available Not available Not available PT FOLLOW-UP 2024 09:00A M Morro Pyser, PT Not available Not available Not available PT FOLLOW-UP 2024 10:00A M Carmen Quebradillas, MOLASSES AND CARAMEL OPERATOR Not available Not available Not available PT FOLLOW-UP 2024 09:00A M Carmen Quebradillas, MOLASSES AND CARAMEL OPERATOR Not available Not available Not available PT FOLLOW-UP 2024 09:30A M Carmen Quebradillas, MOLASSES AND CARAMEL OPERATOR Not available Not available Not available PT FOLLOW-UP 2024 09:00A M Carmen Quebradillas, MOLASSES AND CARAMEL OPERATOR Not available Not available Not available PT FOLLOW-UP 2024 09:30A M Carmen Quebradillas, MOLASSES AND CARAMEL OPERATOR Not available Not available Not available PT FOLLOW-UP 2024 09:00A M Morro Pyser, PT Not available Not available Not available PT FOLLOW-UP 2024 09:30A M Carmen Quebradillas, MOLASSES AND CARAMEL OPERATOR Not available Not available Not available PT FOLLOW-UP 2024 09:00A M Carmen Quebradillas, MOLASSES AND CARAMEL OPERATOR Not available Not available Not available PT FOLLOW-UP 2024 09:30A M Carmen Quebradillas, MOLASSES AND CARAMEL OPERATOR Not available Not available Not available PT FOLLOW-UP 2024 09:30A M Carmen Quebradillas, MOLASSES AND CARAMEL OPERATOR Not available Not available Not available PT FOLLOW-UP 2024 09:30A M Carmen Quebradillas, MOLASSES AND CARAMEL OPERATOR Not available Not available Not available PT FOLLOW-UP 2024 09:00A M Carmen Garrison, MOLASSES AND CARAMEL OPERATOR Not available Not available Not available PT FOLLOW-UP 2024 10:30A M Morro Herrera, PT Not available Not available Not available PT FOLLOW-UP 2024 09:00A Anne Garrison, MOLASSES AND CARAMEL OPERATOR Not available Not available Not available PT FOLLOW-UP 2024 09:00A M Morro Herrera, PT Not available Not available Not available Lab None recorded. 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 Surgeries None recorded. Imaging XR, shoulder, 2 or more view - 4V LT SHOULDER ROOM 212 2024 025 [email or web address] [facility], [address], [address], [place], [address], 10/04/2024 14:36:49 Medication Orders None recorded. Patient TargetsNo targets recorded. 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 [facility] [address] [place], [address], 12/30/2023 16:37:19 12/29/19 24 12/29/2023 CT, wrist , w/o contr ast No observ ation record ed. [facility] [address], [place], [address], 12/30/2023 16:37:20 02/04/20 24 08/30/2018 imagi ng/di agnos tic resul t No observ ation record ed. [email or web address] Not Available 01/07 23:00:44 09/28/19 25 09/27/2024 XR, shoul manfred, 2 or more view http:/ [email or web address] ?Encry pted=s hAaTro YD8dLq bEUv6g %2BXZw aYqtaq 0bqfl% 2Fg9IQ a4ajBk vP9nXo QUaueC m3YtLR FvZl J8mAn HZtai3 2d3101 AC0Kla n2NU6G nKiQtr MwF INTERFACE [facility] [address] [facility] [address], [place], [address], 09/27/2024 13:28:58 09/28/19 25 09/27/2024 XR, shoul manfred, 2 or more view http:/ [email or web address] ?Encry pted=s hAaTro YD8dLq bEUv6g %2BXZw aYqtaq 0bqfl% 2Fg9IQ a4ajBk vP9nXo QUaueC m3YtLR FvZlgJ JJ8mAn HZtai3 1v2950 AC0Kla n2NU6G nKiQtr MwF INTERFACE [facility] [address] [facility] [address], [place], [address], 09/27/2024 13:29:00 Result Notes Documentation Provider Name and Address Organization Details Recorded Time Xr, Shoulder, 2 Or More View : [email or web address] Encrypted=yfRpWuxRO5mIpxX Uv6g%7AMYktLntgh3ggsl%2Fg 7BPm8jwOqcF7fKrWMuurMa5Wh XADxFbtDEH3xZwBIdyj79d350 7SB5Dbui3YK3VfBeQqlEkV Not Available [facility] 09/27/2024 13:28: 59 Xr, Shoulder, 2 Or More View : [email or web address] Encrypted=hsPrJmwBP8vKhqB Uv6g%7QDFisUoalv4nkwu%2Fg 5WEg6upFxnS4tYxOZgyrVz4Gp TJLdSthYSQ0zIzGGoks06y179 1LE6Kygo4TN8EpYnNmaVtK Not Available [facility] 09/27/2024 13:29: 00 Problems Name Problem SNOMED Code Status Onset Date Resolution Date Notes Provider Name and Address Organization Details Recorded Time Pain of left shoulder joint 394913804000 55139 Active 2015 Problem Code: M25.512; Problem Code Type: ICD-10; Status: 'A'; Not Available [facility] 4 11:59:31 Impingeme nt syndrome of left shoulder region 775390560149 104 Active 2015 Problem Code: M75.42; Problem Code Type: ICD-10; Status: 'A'; Not Available [facility] 4 11:59:31 Problem Notes None recorded. Procedures Surgical History Date Name Laterality Status Provider Name and Address Organization Details Recorded Time 4 Cast_Thumb Spica_11+ completed MESFIN GALLOWAY [facility] 01/31/2024 10:12:54 4 Cast Removal completed MESFIN GALLOWAY [facility] 01/31/2024 10:11:26 4 Cast_Thumb Spica_11+ completed Roxana Carranza [facility] 01/18/2024 12:07:09 4 Cast Removal completed Roxana Carranza [facility] 01/18/2024 12:02:40 4 Cast_Short Arm/Ulnar Gutter/Radia l Gutter_11+ completed MESFIN NILESH [facility] 12/21/2023 10:36:46 4 Cast Removal completed [facility] 12/21/2023 10:35:41 Imaging Results None recorded. Procedure Notes None recorded. Medical Equipment None Reported. Allergies Allergen ID Allergen Name Allergen Category Reaction Reaction Severity Criticality Documentation Date Start Date Code Code System Note Provider Name and Address Organization Details Recorded Time 46486 wheat preparati on food,medi cation Not available Not available Not available 08/09/20232008 33043 52 RxNorm Aller gyRea ction : 'O'; Not Available [facility] 4 12:09:06 60105 cultivate d mushroom extract food Not available Not available Not available 08/09/20232015 28932 17 RxNorm Not Available [facility] 4 12:09:06 Medications Name Sig Start Date [...] Updated DateTime 09/27/2024 162.56 cm 30 kg/m2 83759.66 g BAYLEE SCHMITT [facility] 09/27/2024 13:17:08 Date Recorded Body height Body mass index (BMI) Body weight Provider Name and Address Organization Details Last Updated DateTime 02/04/2024 134.62 cm 45.1 kg/m2 71423.63 [facility] 02/04/2024 10:21:51 Date Recorded Body height Body mass index (BMI) Body weight Provider Name and Address Organization Details Last Updated DateTime 02/23/2024 162.56 cm 30 kg/m2 52179.66 g [facility] 02/23/2024 09:05:54 Social History None recorded. Functional [...] Kidney/Bladder Problems Y Anemia N Heart Attack (HI) N Cholesterol Y Diabetes N Bleeding Disorder [...] SNOMED-CT Code Diagnosis ICD10 Code Diagnosis Note [id number] Karleyade Nicholas PA-C [place] [address] [place], [place] [address] 12/07/2023 08:45:24 12/31/2023 14:57:04 Closed fracture of scaphoid bone of wrist 50561057 S62.001A [id number] Karley Nicholas PA-C [place] [address] [place], [place] [address] 12/08/2023 09:38:20 12/08/2023 10:02:20 Closed fracture of scaphoid bone of wrist 94087230 S62.001A [id number] Karley Nicholas PA-C [place] [address] [place] [address] 12/21/2023 10:09:58 12/21/2023 10:38:02 Closed fracture of navicular bone of right wrist 2246687604 9738618 S62.001A [id number] Karley Nicholas PA-C [facility] [address] [place] [address] 01/05/2024 08:40:38 02/03/2024 11:19:53 Pain of right wrist 8338303824 35452 M25.365 [id number] Karley Nicholas PA-C [place] [address] [place] [address] 01/18/2024 11:35:16 01/18/2024 12:09:18 Pain of right wrist 6428960408 66318 M25.061 [id number] LOREN [facility] [address] [place] [address] 01/31/2024 09:51:45 01/31/2024 10:15:26 Pain of right wrist 1227769585 61689 M25.422 [id number] Karley Nicholas PA-C [place] [address] [place] [address] 02/04/2024 09:40:33 02/28/2024 14:08:17 Pain of right wrist 4280842723 02450 M25.531 Closed fra cture of scaphoid bone of wrist 81017479 S62.001A [id number] Karley Nicholas PA-C [place] [address] [place] [address] 02/23/2024 09:00:30 03/16/2024 08:09:10 Closed fracture of scaphoid bone of wrist 84562358 S62.001A [id number] MD BRITTANI [facility] [address] [place] [address] 09/27/2024 12:13:01 10/04/2024 14:36:49 Pain of left shoulder joint 0323085766 1126944 M25.512 Health Concerns Section Related Observation LastModified by Organization Detai ls LastModified Time None Recorded Concern Status LastModified by Organization Details LastModified Time None Recorded Advance Directives Directive None Recorded Payers Insurance Date Sequence Insurance Name Policy Number Policy George Covered Member ID George Member ID Guarantor Name 11/28/2024 1 [facility] - DOS ON OR AFTER 2022 - ONE CARE (MEDICARE REPLACEMENT/ADV ANTAGE - HMO) Lauren Lemos [id number] Lauren Lemos 12/05/2024 1 [facility] (MEDICARE REPLACEMENT/ADV ANTAGE - HMO) Lauren Lemos [id number] Lauren Lemos 11/28/2024 1 [place]: [employer] Lauren Lemos [id number] Lauren Lemos 12/05/2024 1 [facility] AFTER [facility] OPTIONS AND ONE CARE (MEDICARE REPLACEMENT/ADV ANTAGE - PPO) Lauren Lemos [id number] Lauren Lemos Notes Date Note Type Note [...] carpal tunnelX-rays ordered, obtained and reviewed at [facility]: None performed today, previousCT scan demonstrates evidence [...] for any further questions or concerns.Speech recognition dealer analyst software was used to create portions of [...] our office immediately. Karley Nicholas PA-C [address] [facility] [address], [place], [address], [facility] 02/04/2024 12:28:41 02/23/2024 text/html I am seeing [...] carpal tunnelX-rays ordered, [facility]: None performed today, previousCT scan demonstrates evidence [...] for any further questions or concerns.Speech recognition dealer analyst software was used to create portions of [...] our office immediately. Karley Nicholas PA-C [address] [facility] [address], [place], [address], [facility] [place] [facility] 02/24/2024 21:38:26 OBGyn Episode No OBEpisode recorded.
[2024-12-09 06:43] LABS: Alanine Aminotransferase 20 U/L (0-31); Albumin Level 4.0 g/dL (3.5-5.0); Alkaline Phosphatase 140 U/L (39-117); Anion Gap 16 (12-20); Aspartate Amino Transferase 24 U/L (5-31); Blood Urea Nitrogen 20 mg/dL (9-16); Calcium 9.2 mg/dL (8.4-10.2); Carbon Dioxide 21 mmol/L (22-29); Chloride 113 mmol/L (96-108); Creatinine Clr Calc Pharmacy 46.6; Estimated Glomerular Filt Rate 40; Magnesium 2.8 mg/dL (1.6-2.6); Potassium 4.9 mmol/L (3.3-5.1); Sodium 145 mmol/L (135-145); Total Protein 6.8 g/dL (6.5-8.0)
[2024-12-09 06:55] LABS: Troponin-I High Sensitivity < 2.7 ng/L (<3.5-17.0)
--- NOTE | 2024-12-09 07:38 | ED.GENADULT ---
HPI - General Adult General Chief complaint: Fall Stated complaint: Fall, AMS, last memory is 9pm 12/08/24 +collar Time Seen by Provider: 12/09/24 07:32 Source: patient and EMS Mode of arrival: EMS Limitations: no limitations History of Present Illness ED Provider: DR. Cardenas HPI narrative: a 69-year-old female brought in by ambulance for evaluation after was found on the floor. Patient admitted to drinking alcohol last night last thing she remember was watching TV and drinking beer last night, patient woke up found herself on the ground, patient do not remember the event and how she got on the ground, no headache, no neck pain, no CP, no SOB, no abdominal pain, no back pain, no extremity pain. Left shoulder chronic pain, patient is scheduled to have left shoulder CT/ surgery next week patient do not feel any extra pain in the left shoulder. Reviewing patient's chart patient has previous ED visit for alcohol intoxication. Related Data Home Medications ?Medication ?Instructions ?Recorded ?Confirmed atorvastatin 20 mg tablet 20 mg PO DAILY 08/22/21 07/20/24 cyclobenzaprine 10 mg tablet 10 mg PO BID PRN Muscle Spasm 08/22/21 07/20/24 levothyroxine 75 mcg tablet 75 mcg PO DAILY@0600 08/22/21 07/20/24 metoprolol succinate 100 mg 100 mg PO DAILY 08/22/21 07/20/24 tablet,extended release 24 hr omeprazole 20 mg capsule,delayed 20 mg PO DAILY@0630 08/22/21 07/20/24 release ropinirole 0.25 mg tablet 0.25 mg PO BID 08/22/21 07/20/24 meclizine 25 mg tablet 25 mg PO TID PRN Dizziness 04/07/23 07/20/24 ondansetron 4 mg disintegrating 4 mg PO Q8-10H PRN Nausea 04/07/23 07/20/24 tablet amlodipine 10 mg tablet 10 mg PO DAILY 04/26/24 07/20/24 ascorbic acid (vitamin C) 250 mg 250 mg PO DAILY 04/26/24 07/20/24 tablet aspirin 81 mg tablet,delayed 81 mg PO DAILY 04/26/24 07/20/24 release cholecalciferol (vitamin D3) 10 10 mcg PO DAILY 04/26/24 07/20/24 mcg (400 unit) tablet cyanocobalamin (vitamin B-12) 1,000 mcg PO DAILY 04/26/24 07/20/24 1,000 mcg tablet lidocaine 5 % topical patch 1 patch topical DAILY PRN Pain 04/26/24 07/20/24 multivitamin 1 tab PO DAILY 04/26/24 07/20/24 tolterodine 4 mg capsule,extended 4 mg PO DAILY 04/26/24 07/20/24 release 24 hr zonisamide 100 mg capsule 100 mg PO BID PRN Nausea 04/26/24 07/20/24 spironolactone 50 mg tablet 50 mg PO DAILY 06/08/24 07/20/24 bupropion HCl 150 mg 24 hr tablet, 150 mg PO DAILY 07/20/24 07/20/24 extended release dorzolamide 22.3 mg-timolol 6.8 1 drp ophthalmic-Left Q12H 07/20/24 07/20/24 mg/mL eye drops prazosin 1 mg capsule 1 - 2 mg PO BEDTIME PRN Sleep 07/20/24 07/20/24 Previous Rx's ?Medication ?Instructions ?Recorded albuterol sulfate 90 mcg/actuation 2 puff inhalation Q4-6H PRN 01/08/24 aerosol inhaler shortness of breath or wheezing #8.5 grams walker #1 ea 05/10/24 cefuroxime axetil 250 mg tablet 250 mg PO BID 4 days #8 tabs 07/22/24 Allergies Allergy/AdvReac Type Severity Reaction Status Date / Time gluten (GLUTEN) Allergy Unknown UNKNOWN Verified 12/09/24 05:40 mushroom Allergy Unknown UNKNOWN Verified 12/09/24 05:40 Review of Systems Review of Systems: All other systems are reviewed and are negative Constitutional: Reports as per HPI and Reports no additional constitutional complaints Eyes: Reports as per HPI and Reports no additional eye complaints Reports system reviewed and no additional complaints, except as documented Cardiovascular: Reports as per HPI and Reports no additional cardiovascular complaints Respiratory: Reports as per HPI and Reports no additional respiratory complaints Gastrointestinal: Reports as per HPI and Reports no additional gastrointestinal complaints Genitourinary: Reports no additional female genitourinary complaints Musculoskeletal: Reports no additional musculoskeletal complaints Skin/Breast: Reports system reviewed and no additional complaints, except as docu Psychiatric: Reports no additional psychiatric complaints Endocrine: Reports no additional endocrine complaints Hematologic/Lymphatic: Reports no additional hematologic/lymphatic complaints Allergic/Immunologic: Reports no additional allergic/immunologic complaints Reports system reviewed and no additional complaints, except as documented and Reports Abnormal speech present [facility] Past Medical History Medical History Osteopenia Glaucoma Osteoarthritis CKD (chronic kidney disease) stage 3, GFR 30-59 ml/min Vitamin D deficiency Vitamin B12 deficiency Shoulder pain, left Back pain Anxiety LOC (loss of consciousness) Bilateral leg edema Chest pain Dyspnea RLS (restless legs syndrome) Depression Presence of implantable pulmonary artery pressure and heart rate monitoring system Right knee injury Right shoulder injury Femur fracture, right Femur fracture, left delivery delivered Migraine Restless Kidney disease Heart murmur Overactive bladder Overactive adult syndrome Thyroid disease Hyperlipidemia Hypertension Surgical History History of cataract surgery (~05/2024) History of surgery Social History Social History Household Members: Spouse Housing: Apartment Do you presently have visiting nurse or other home services: No Alcohol intake: current Alcohol intake frequency: 0-2 drinks per day Alcohol type: beer and hard liquor Patient Tobacco Use Status: Never used Tobacco Smoked in Last 30 Days: Yes Second Hand Smoke Exposure: No Use of substances other than those prescribed or required for medical reasons: Yes Substance Use Type: Marijuana Substance Use Frequency: Daily Last Used Substance: Hours (ago) Advance Directives: Yes Advance Directives on File: Yes Advance Directives Date on File: 09/10/20 service: No Physical Exam ED Vital Signs: Vital Signs - 24 hr 12/09/24 05:35 12/09/24 09:30 12/09/24 12:21 Temperature 98.3 F 98.3 F 97.1 F Pulse Rate 57 61 60 Respiratory Rate 15 18 14 Blood Pressure 142/54 H 115/58 L 136/42 L Pulse Oximetry 98 99 100 Oxygen Delivery Method Room Air Room Air Room Air BMI result Body Mass Index 36.0 Vital signs have been reviewed and appear to be correct. Blood pressure elevated. Heart rate normal. Respiratory rate normal. Temperature normal. Oxygen saturation normal. Appearance: Alert. Oriented X3. No acute distress. Head: Normal external exam. Normocephalic. Atraumatic. No Manzano signs noted. No raccoon eyes noted Eyes: PERRLA. EOMI. Conjunctiva and sclera normal. Eyelids normal. ENT: TM's Normal. Pharynx normal. Uvula midline. Moist mucous membranes. No trismus noted. No drooling noted. No muffled voice noted. Neck: Normal inspection. Neck supple. FROM. No adenopathy. Thyroid Normal. No meningeal signs. No neck mass noted. CVS: Normal heart rate and rhythm. Heart sound normal. No murmurs noted. Pulses normal throughout. Respiratory: No respiratory distress. Painless inspiration. Breath sounds normal. No wheezes/rales/rhonchi noted. Chest nontender. No accessory muscle usage noted or decreased air movement noted. Abdomen: Soft and nontender. Bowel sounds normal in all 4 quadrants. No distention noted. No organomegaly noted. No visible injury noted. Back: No CVA tenderness. Full range of motion noted. Skin: Skin warm and dry. Normal skin color. Normal skin turgor. No rashes/lesions/lacerations noted. Extremities: No lower extremity edema. Extremities exhibit normal range of motion. Extremities nontender. Neuro: Oriented X 3. Cranial nerve exam: II-XII are grossly intact No motor deficit. No sensory deficit. Reflexes normal. Course Reevaluation(s) Reevaluation #1: Patient is sober, AAO x3, requesting to be discharged home, able to ambulate in the ED, unremarkable workup in the ED. Time: 13:10 Medical Decision Making Differential Diagnosis Differential Diagnoses: The differential diagnosis associated with the presentation includes ( alcohol intoxication, intracranial pathology, cervical spine injury, back injury, chest injury, abdominal injury, extremity injuries , electrolyte derangement, severe anemia, rhabdomyolysis.) Admission/Observation Consideration of admission/observation: Escalation of care including admission/observation considered Lab Data MDM Lab Attestation statement: I reviewed the patient's lab results. 12/09/24 06:07 12/09/24 06:07 Labs: Lab Results 12/09/24 12/09/24 12/09/24 Range/Units 05:51 06:07 08:07 WBC 7.8 (4.8-10.8) X10*3/uL RBC 4.92 (4.20-5.50) X10*6/uL Hgb 15.0 (12.0-16.0) g/dl Hct 45.3 (37.0-47.0) % MCV 92.1 (80.0-98.0) fL MCH 30.5 (27.0-33.0) pg MCHC 33.1 (31.0-35.0) g/dl RDW 12.6 (11.0-16.0) % Plt Count 196 (160-400) X10*3/uL MPV 10.4 (9.4-12.3) fL Immature Gran % (Auto) 1.0 H (0.0-0.4) % Neut % (Auto) 50.5 (45-73) % Lymph % (Auto) 34.9 (20-40) % Andrews % (Auto) 6.6 (2-11) % Eos % (Auto) 6.0 H (0-4) % Baso % (Auto) 1.0 (0-2) % Lymph # (Auto) 2.7 (1.2-4.9) X10*3/uL Andrews # (Auto) 0.5 (0.1-1.2) X10*3/uL Eos # (Auto) 0.5 H (0.0-0.4) X10*3/uL Baso # (Auto) 0.1 (0.0-0.2) X10*3/uL Abs Immat Gran (auto) 0.08 H (0.00-0.03) X10*3/uL Absolute Neuts (auto) 4.0 (2.0-8.3) x10*3/uL Absolute Nucleated RBC 0.000 (0.0-0.012) X10*3/uL Nucleated RBC % (auto) 0.0 (0.0-0.2) /100WBC Sodium 145 (135-145) mmol/L Potassium 4.9 D (3.3-5.1) mmol/L Chloride 113 H (96-108) mmol/L Carbon Dioxide 21 L (22-29) mmol/L Anion Gap 16 (12-20) BUN 20 H (9-16) mg/dL Creatinine 1.31 (0.5-1.4) mg/dL Estim Creat Clear Calc 46.6 Estimated GFR 40 Random Glucose 99 (60-115) mg/dL Calcium 9.2 (8.4-10.2) mg/dL Magnesium 2.8 H (1.6-2.6) mg/dL Total Bilirubin 0.3 (0.0-1.0) mg/dL AST 24 (5-31) U/L ALT 20 (0-31) U/L Alkaline Phosphatase 140 H (39-117) U/L Total Creatine Kinase 51 (26-140) U/L Troponin I High Sens < 2.7 < 2.7 (<3.5-17.0) ng/L Total Protein 6.8 (6.5-8.0) g/dL Albumin 4.0 (3.5-5.0) g/dL Urine Color Yellow Urine Appearance Clear Urine pH 5.5 (5.0-9.0) Ur Specific Huntington <= 1.005 (1.005-1.025) Urine Protein Trace (Neg-Trace) mg/dL Urine Glucose (UA) Negative (Negative) mg/dL Urine Ketones Negative (Negative) mg/dL Urine Blood Negative (Negative) Urine Nitrite Negative (Negative) Ur Leukocyte Esterase Trace H (Negative) Urine RBC 0-2 (0-2) /HPF Urine WBC 0-5 (0-5) /HPF Ur Squamous Epith Cells 3-5 (0-2) /HPF Urine Bacteria None Seen (None Seen) Hyaline Casts 0-2 (0-2) /LPF Urine Opiates Screen Not Detected (Not Detect) Ur Buprenorphine Scrn Not Detected (Not Detect) ng/mL Ur Oxycodone Screen Not Detected (Not Detect) ng/mL Urine Methadone Screen Not Detected (Not Detect) ng/mL Urine Fentanyl Screen Not Detected (Not Detect) Ur Barbiturates Screen Not Detected (Not Detect) Ur Phencyclidine Scrn Not Detected (Not Detect) Ur Amphetamines Screen Not Detected (Not Detect) U Benzodiazepines Scrn Not Detected (Not Detect) Urine Cocaine Screen Not Detected (Not Detect) U Marijuana (THC) Screen Not Detected (Not Detect) Ethyl Alcohol 211 mg/dL Independent Interpretation I performed an independent interpretation of an: EKG ( Normal bradycardia at 53 beats per minutes, normal intervals, no ST-T changes, no change from prior EKG.), Plain X-Ray ( chest: No acute intra thoracic pathology..) and CT Scan ( Head/cervical spine CT: No acute pathology.) Radiology Impression Discussion of test interpretation with radiology: I have reviewed the radiologist's reading. Discharge Plan Discharge Clinical Impression: Alcohol intoxication Patient Disposition: Home, Self-Care Instructions: Alcohol Intoxication (DC) Prescriptions: No Action (DINESH) asif Orozco See Rx Instructions .Route Qty: 1 0RF Rx Instructions: As directed prazosin 1 mg capsule 1 - 2 mg PO BEDTIME PRN (Reason: Sleep) dorzolamide-timolol 22.3-6.8 mg/mL drops 1 drp ophthalmic-Left Q12H bupropion HCl 150 mg tablet extended release 24 hr 150 mg PO DAILY cefuroxime axetil 250 mg tablet 250 mg PO BID 4 Days Qty: 8 0RF albuterol sulfate 90 mcg/actuation HFA aerosol inhaler 2 puff inhalation Q4-6H PRN (Reason: shortness of breath or wheezing) Qty: 8.5 0RF amlodipine 10 mg tablet 10 mg PO DAILY aspirin 81 mg Tablet,Delayed Release (Dr/Ec) 81 mg PO DAILY ascorbic acid (vitamin C) 250 mg Tablet 250 mg PO DAILY multivitamin Tablet 1 tab PO DAILY tolterodine 4 mg capsule,extended release 24hr 4 mg PO DAILY cyanocobalamin (vitamin B-12) 1,000 mcg Tablet 1,000 mcg PO DAILY zonisamide 100 mg capsule 100 mg PO BID PRN (Reason: Nausea) lidocaine 5 % adhesive patch,medicated 1 patch topical DAILY PRN (Reason: Pain) cholecalciferol (vitamin D3) 10 mcg (400 unit) Tablet 10 mcg PO DAILY omeprazole 20 mg capsule,delayed release(DR/EC) 20 mg PO DAILY@0630 ropinirole 0.25 mg tablet 0.25 mg PO BID levothyroxine 75 mcg tablet 75 mcg PO DAILY@0600 atorvastatin 20 mg tablet 20 mg PO DAILY cyclobenzaprine 10 mg tablet 10 mg PO BID PRN (Reason: Muscle Spasm) metoprolol succinate 100 mg tablet extended release 24 hr 100 mg PO DAILY ondansetron 4 mg tablet,disintegrating 4 mg PO Q8-10H PRN (Reason: Nausea) meclizine 25 mg tablet 25 mg PO TID PRN (Reason: Dizziness) spironolactone 50 mg tablet 50 mg PO DAILY Referrals: Carlos Castañeda PA [Primary Care Provider, Internal Medicine] Print Language: Luxembourgish
[2024-12-09 08:44] LABS: Troponin-I High Sensitivity < 2.7 ng/L (<3.5-17.0)
[2024-12-09 09:30] VITALS: BP 115/58; PULSE 61; RESP 18; TEMP 36.8; O2SAT 99
[2024-12-09 12:21] VITALS: BP 136/42; PULSE 60; RESP 14; TEMP 36.2; O2SAT 100
[2024-12-09 13:25] VITALS: BP 160/56; PULSE 71; RESP 18; TEMP 36.5; O2SAT 100
[2024-12-09 13:36] VITALS: BP 160/56; PULSE 71; RESP 18; TEMP 36.5; O2SAT 100
--- NOTE | 2024-12-09 13:45 | PC.NURSE ---
Pt discharged from ED, ambulated out with d/c paperwork in hand and steady gait.
== END 2024-12-09 13:44 | disposition home or self-care (01) ==
PROVIDERS: Emergency Provider Emergency Medicine; PCP Physician Assistant Medical
DX: F10.129 Alcohol abuse with intoxication, unspecified (principal); Y90.7 Blood alcohol level of 200-239 mg/100 ml; Z79.899 Other long term (current) drug therapy; M25.512 Pain in left shoulder
CPT/HCPCS: 36415; 70450; 71045; 72125; 80053; 80307; 81001; 82550; 83735; 84484; 85025; 93005; 99284; 99285

== ENCOUNTER → 2024-12-09 05:48 | Outpatient (BNV) | payer OTHER, SELFPAY | PROVIDERS: Emergency Provider Emergency Medicine; PCP Physician Assistant Medical; Visit Provider Internal Medicine Cardiovascular Disease | DX: R00.1 Bradycardia, unspecified (principal) | CPT/HCPCS: 93010 ==

== ENCOUNTER → 2024-12-09 07:35 | Outpatient (BNV) | payer OTHER, SELFPAY | PROVIDERS: Emergency Provider Emergency Medicine; PCP Physician Assistant Medical; Visit Provider Specialist | DX: M50.322 Other cervical disc degeneration at C5-C6 level (principal); R41.82 Altered mental status, unspecified; M95.4 Acquired deformity of chest and rib | CPT/HCPCS: 70450; 71045; 72125 ==

== ENCOUNTER 2024-12-28 11:33 | Outpatient (REF) | payer OTHER, SELFPAY ==
--- OUTSIDE RECORDS SUMMARY | 2024-12-28 12:27 | XMS_ITS | Encounter Summary ---
Author Organization [facility] Address [address] [place] [address] Care Team Providers Care Engraver Block Name Role Phone Carlos Castañeda Primary Care Provider [phone] Reason for Visit * Reason Onset Date Comments Results 12/26/2024 [facility] Pre OP Encounter Details Date Type Department Care Team (Late st Contact Info) Description 12/26/2024 Telephone Adult Medicine [facility] [address] [place] [address] Carlos Castañeda PA [address] [place], [place] [phone] Results ([facility] OP) Social History Tobacco Use Types Packs/Day Years [...] Orientation Straight 12/08/2024 7: 02 PM EDT documented as of this encounter Progress Notes * Mabel Spears - 12/26/2024 12:53 PM EDT Dwain from [facility] is requesting current med list and labs be faxed over to [phone], Attn: Dwain * Samantha Yu - 12/26/2024 12:18 PM EDT Sirena Kellogg NP from [facility] Op calling for recent lab results. Surgery is scheduled for 01/10/25, left shoulder surgery. Caller is asking for a call back from a nurse, today, per her request. documented in this encounter Plan of Treatment Upcoming Encounters Date Type Department Care Team (Late st Contact Info) Description 06/13/2025 10:30 AM EST Office Visit Adult Medicine [facility] [address] [place] [phone] Carlos Castañeda PA [address] [place] [phone] documented as of this encounter Visit Diagnoses Not on filedocumented in this encounter Care Teams Engraver Block Relationship Specialty Start Date End Date Carlos Castañeda PA [address] [place] [phone] PCP - General Internal Medicine 04/17/24 documented as of this encounter
--- OUTSIDE RECORDS SUMMARY | 2024-12-28 12:27 | XMS_ITS | Clinical Summary ---
Author Organization [facility] Address [address] [place] [address] Phone Care Team Providers Care Certified Pesticide Applicator Name Role Phone Haja Donahue MD Primary Care Provider [phone] Allergies Active Allergy Reactions Criticality Noted Date [...] her 2 recent episodes occur in the suction plate roller hand right after getting out of bed, we have to consider the possibility of orthostatic hypotension. I would instruct the patient to monitor her blood pressure at home in the suction plate roller hand to determine if she is having any [...] Cancer Screening: Sigmoidoscopy 2006 Influenza Vaccine (#1) 2025 , 02/12/2021, 05/05/2018 Hepatitis B Vaccine Aged Out No longe r eligible based on patient's age to complete this topic Insurance [place] Subscriber Plan / Payer (Ef fective 2020-Present) Name:Lauren Lemos Relation to Subscriber:Self Name:Lauren Lemos Payer ID:Not on file Group ID:Not on file Type:Not on file Address: [address] [facility] Medicaid [place] [facility] Care Teams Certified Pesticide Applicator Relationship Specialty Start Date End Date Haja Donahue MD [address] [place] [id number] PCP - General Internal Medicine 07/15/20
--- OUTSIDE RECORDS SUMMARY | 2024-12-28 12:27 | XMS_ITS | Data Portability ---
Author Organization [place] Jonny Tovar [facility], [facility] Address [address] [place] [address] Care Team Providers Care Emt/Dispatcher Name Role Phone SUKI CASE Primary Care [...] all patients experience complete pain relief and samaritan of full function with this procedure, and [...] an informed decision to proceed with surgery. [facility] speech recognition mortgage loan reviewer software was used to create portions of this document. An attempt at proofreading has been made to minimize errors. Please call for corrections. [email or web address] Not available 09/27/2024 14:27:23 Plan of Treatment Reminders Order Date Submit Date Provider Last Modified By Organization Details Last Modified Time Details Appointments MED CLEAR ONLY 15 2024 09:00A M Guillermo Carter MD Not available Not available Not available DME 2024 01:00P M DINESH Shields Not available Not available Not available SURGERY @ [facility] 2024 10:00A M Guillermo Carter MD Not available Not available Not available POST OP 15 2024 09:30A M Niranjan roblero PA-C Not available Not available Not available PT INITIAL EVAL 2024 10:30A M Morro Herrera, PT Not available Not available Not available PT FOLLOW-UP 2024 11:00A M Carmen Garrison, LPN Not available Not available Not available PT FOLLOW-UP 2024 09:30A M Carmen Garrison, LPN Not available Not available Not available PT FOLLOW-UP 2024 08:30A M Morro Herrera, PT Not available Not available Not available PT FOLLOW-UP 2024 10:30A M Morro Pyser, PT Not available Not available Not available PT FOLLOW-UP 2024 07:30A M Carmen [place], LPN Not available Not available Not available PT FOLLOW-UP 2024 10:00A M Carmen [place], LPN Not available Not available Not available PT FOLLOW-UP 2024 07:30A M Carmen [place], LPN Not available Not available Not available PT FOLLOW-UP 2024 10:00A M Carmen [place], LPN Not available Not available Not available PT FOLLOW-UP 2024 09:30A M Carmen [place], LPN Not available Not available Not available PT FOLLOW-UP 2024 10:00A M Carmen [place], LPN Not available Not available Not available PT FOLLOW-UP 2024 09:00A M Morro Pyser, PT Not available Not available Not available PT FOLLOW-UP 2024 10:00A M Carmen [place], LPN Not available Not available Not available PT FOLLOW-UP 2024 09:00A M Carmen [place], LPN Not available Not available Not available PT FOLLOW-UP 2024 09:30A M Carmen [place], LPN Not available Not available Not available PT FOLLOW-UP 2024 09:00A M Carmen [place], LPN Not available Not available Not available PT FOLLOW-UP 2024 09:30A M Carmen [place], LPN Not available Not available Not available PT FOLLOW-UP 2024 09:00A M Morro Pyser, PT Not available Not available Not available PT FOLLOW-UP 2024 09:30A M Carmen [place], LPN Not available Not available Not available PT FOLLOW-UP 2024 09:00A M Carmen [place], LPN Not available Not available Not available PT FOLLOW-UP 2024 09:30A M Carmen [place], LPN Not available Not available Not available PT FOLLOW-UP 2024 09:30A M Carmen [place], LPN Not available Not available Not available PT FOLLOW-UP 2024 09:30A M Carmen [place], LPN Not available Not available Not available PT FOLLOW-UP 2024 09:00A M Carmen Garrison, LPN Not available Not available Not available PT FOLLOW-UP 2024 10:30A M Morro Herrera, PT Not available Not available Not available PT FOLLOW-UP 2024 09:00A Anne Garrison, LPN Not available Not available Not available PT FOLLOW-UP 2024 09:00A M Morro Herrera, PT Not available Not available Not available Lab None recorded. Referral occupatio nal therapist referral - right trapezium fracture intririsi c tightness , aprom, stretch, strength, chief diversity officer 2023 024 [email or web address] [place], [address], [place], [address], 03/16/2024 08:09:10 Procedures None recorded. Surgeries None recorded. Imaging XR, shoulder, 2 or more view - 4V LT SHOULDER ROOM 212 2024 025 [email or web address] [facility], [address], [address], [place], [address], 10/04/2024 14:36:49 Medication Orders None recorded. Patient TargetsNo targets recorded. Patient Instructions Encounter Date Encounter Id Patient Instructions Last Modified By Organization Details Last Modified Time 02/04/2024 [id number] cast removal* - cast off no xrays rm 108 [email or web address] Not available 02/04/2024 12:07:59 Reason for Referral Occupational Therapist Refer ral for Closed fracture of scaphoid bone of wrist right trapezium fracture intririsic tightness, aprom, stretch, strength, chief diversity officer Referring Physician: Karley Nicholas, Orthopedic Surgery, Encounter Date: 02/23/2024 Results Created Date Observation Date Name Description Value Unit Range Abnormal Flag Note LastModifiedBy Organization Detail LastModifiedTime 12/29/19 24 12/29/2023 CT, wrist , w/o contr ast No observ ation record ed. [facility] [address] [place], [address], 12/30/2023 16:37:19 12/29/19 24 12/29/2023 CT, wrist , w/o contr ast No observ ation record ed. [facility] - [address], [place], [address], 12/30/2023 16:37:20 02/04/20 24 08/30/2018 imagi ng/di agnos tic resul t No observ ation record ed. [email or web address] Not Available 01/07 23:00:44 09/28/19 25 09/27/2024 XR, shoul manfred, 2 or more view http:/ [email or web address] ?Encry pted=s hAaTro YD8dLq bEUv6g %2BXZw aYqtaq 0bqfl% 2Fg9IQ a4ajBk vP9nXo QUaueC m3YtLR FvZlgJ JJ8mAn HZtai3 2t6126 AC0Kla n2NU6G nKiQtr MwF INTERFACE [facility] [address], [place], [address], 09/27/2024 13:28:58 09/28/19 25 09/27/2024 XR, shoul manfred, 2 or more view http:/ [email or web address] ?Encry pted=s hAaTro YD8dLq bEUv6g %2BXZw aYqtaq 0bqfl% 2Fg9IQ a4ajBk vP9nXo QUaueC m3YtLR FvZlgJ JJ8mAn HZtai3 2k9292 AC0Kla n2NU6G nKiQtr MwF INTERFACE [facility] [address], [place], [address], 09/27/2024 13:29:00 12/14/19 25 12/13/2024 CT, shoul manfred, w/o contr ast No observ ation record ed. [facility] [place] [address] [address], [place], [address], 12/13/2024 12:06:28 Result Notes Documentation Provider Name and Address Organization Details Recorded Time Xr, Shoulder, 2 Or More View : [email or web address] Encrypted=omIbEcsBY9qXjhT Uv6g%0RVRviSxyki2wxga%2Fg 7RSm4fwExeJ5rPcTDojmKl7Xc FGUfDstGFZ1fQvZAwrl47w069 0NK3Ledx9KH3QyCoLwmUrW Not Available [facility] 09/27/2024 13:28: 59 Xr, Shoulder, 2 Or More View : [email or web address] Encrypted=pwQdKxaIL0aDtmH Uv6g%7JQLlzNxcpl1dfmn%2Fg 2PGb9xnSnyQ8qGxVPwgtFf4Ef WNLaPyhUXP8bQfOFllc36g222 5HB2Ddbl2OY9VbLbYlqMzA Not Available [facility] 09/27/2024 13:29: 00 Problems Name Problem SNOMED Code Status Onset Date Resolution Date Notes Provider Name and Address Organization Details Recorded Time Pain of left shoulder joint 922936029778 51426 Active 2015 Problem Code: M25.512; Problem Code Type: ICD-10; Status: 'A'; Not Available [facility] 11:59:31 Impingeme nt syndrome of left shoulder region 679327894703 104 Active 2015 Problem Code: M75.42; Problem Code Type: ICD-10; Status: 'A'; Not Available [facility] 11:59:31 Problem Notes None recorded. Procedures Surgical History Date Name Laterality Status Provider Name and Address Organization Details Recorded Time 4 Cast_Thumb Spica_11+ completed MESFIN GALLOWAY [facility] 01/31/2024 10:12:54 4 Cast Removal completed MESFIN GALLOWAY [place] [facility] 01/31/2024 10:11:26 4 Cast_Thumb Spica_11+ completed Roxana Carranza [facility] 01/18/2024 12:07:09 4 Cast Removal completed Roxanarichard Carranza [facility] 01/18/2024 12:02:40 4 Cast_Short Arm/Ulnar Gutter/Radia l Gutter_11+ [facility] 12/21/2023 10:36:46 4 Cast Removal completed [facility] 12/21/2023 10:35:41 Imaging Results None recorded. Procedure Notes None recorded. Medical Equipment None Reported. Allergies Allergen ID Allergen Name Allergen Category Reaction Reaction Severity Criticality Documentation Date Start Date Code Code System Note Provider Name and Address Organization Details Recorded Time 11642 wheat preparati on food,medi cation Not available Not available Not available 08/09/20232008 47913 52 RxNorm Aller gyRea ction : 'O'; Not Available [facility] 4 12:09:06 13873 cultivate d mushroom extract food,medi cation Not available Not available Not available 08/09/20232015 08061 17 RxNorm Not Available [facility] 4 12:09:06 Medications Name Sig [...] TAKE TABLET BY MOUTH DAILY START ON: active Not Available Not Available No t [...] Updated DateTime 09/27/2024 162.56 cm 30 kg/m2 22152.66 g BAYLEE SCHMITT [facility] 09/27/2024 13:17:08 Date Recorded Body height Body mass index (BMI) Body weight Provider Name and Address Organization Details Last Updated DateTime 02/04/2024 134.62 cm 45.1 kg/m2 00135.63 g [facility] 02/04/2024 10:21:51 Date Recorded Body height Body mass index (BMI) Body weight Provider Name and Address Organization Details Last Updated DateTime 02/23/2024 162.56 cm 30 kg/m2 97034.66 g [facility] 02/23/2024 09:05:54 Social History None recorded. Functional Status None recorded. Mental Status None recorded. Family History Nothing Reported. Medical History Condition Response Allergies/Hayfever N Coronary Artery Disease N Anxiety/Depression N Breathing or lung disorders N Emphysema N Nerve Disorders N Thyroid Problems N COPD N Pacemaker N Anemia N Kidney/Bladder Problems Y Vascular Disease N Heart Trouble Y Heart Attack ([place]) N Gastrointestinal Disease Y Cholesterol Y Diabetes [...] SNOMED-CT Code Diagnosis ICD10 Code Diagnosis Note [id number] Karley Nicholas PA-C [facility] [address] [place], [place] [address] 12/07/2023 08:45:24 12/31/2023 14:57:04 Closed fracture of scaphoid bone of wrist 68545398 S62.001A [id number] Karley Nicholas PA-C [facility] [address] [place] [address] 12/08/2023 09:38:20 12/08/2023 10:02:20 Closed fracture of scaphoid bone of wrist 48619739 S62.001A [id number] Karley Nicholas PA-C [facility] [address] [place] [address] 12/21/2023 10:09:58 12/21/2023 10:38:02 Closed fracture of navicular bone of right wrist 4244592013 0912444 S62.001A [id number] Karley Nicholas PA-C [facility] [address] [place] [address] 01/05/2024 08:40:38 02/03/2024 11:19:53 Pain of right wrist 2111830034 32082 M25.942 [id number] Karley Nicholas PA-C [facility] [address] [place] [address] 01/18/2024 11:35:16 01/18/2024 12:09:18 Pain of right wrist 8170464389 10930 M25.642 [id number] Karley Nicholas PA-C [facility] [address] [place] [address] 01/31/2024 09:51:45 01/31/2024 10:15:26 Pain of right wrist 2138731340 35399 M25.378 [id number] Karley Nicholas PA-C [facility] [address] [place] [address] 02/04/2024 09:40:33 02/28/2024 14:08:17 Pain of right wrist 6589826832 54235 M25.531 Closed fra cture of scaphoid bone of wrist 63277602 S62.001A [id number] Karley Nicholas PA-C [facility] [address] [place] [address] 02/23/2024 09:00:30 03/16/2024 08:09:10 Closed fracture of scaphoid bone of wrist 97940283 S62.001A [id number] Guillermo Carter MD [facility] [address] [place] [address] 09/27/2024 12:13:01 10/04/2024 14:36:49 Pain of left shoulder joint 6965359853 8133907 M25.512 Health Concerns Section Related Observation LastModified by Organization Detai ls LastModified Time None Recorded Concern Status LastModified by Organization Details LastModified Time None Recorded Advance Directives Directive None Recorded Payers Insurance Date Sequence Insurance Name Policy Number Policy George Covered Member ID George Member ID Guarantor Name 11/28/2024 1 [facility] - DOS ON OR AFTER 2022 - ONE CARE (MEDICARE REPLACEMENT/ADV ANTAGE - HMO) Lauren Lemos [id number] Lauren Lemos 12/05/2024 1 [facility] (MEDICARE REPLACEMENT/ADV ANTAGE - HMO) Lauren Lemos [id number] Lauren Lemos 11/28/2024 1 [place]: [employer] Lauren Lemos [id number] Lauren Lemos 12/24/2024 1 [facility] - DOS ON OR AFTER 2022 - COR[employer] OPTIONS AND ONE CARE (MEDICARE REPLACEMENT/ADV ANTAGE - PPO) Lauren Lemos [id number] Lauren Lemos Notes Date Note Type Note [...] carpal tunnelX-rays ordered, obtained and reviewed at [facility]: None performed today, previousCT scan demonstrates [...] for any further questions or concerns.Speech recognition mortgage loan reviewer software was used to create portions of [...] contact our office immediately. Karley Nicholas PA-C [address] [place] [address], [place], [address], [facility] 02/04/2024 12:28:41 02/23/2024 text/html I am [...] carpal tunnelX-rays ordered, obtained and reviewed at [facility]: None performed today, previousCT scan demonstrates [...] for any further questions or concerns.Speech recognition mortgage loan reviewer software was used to create portions of [...] contact our office immediately. Karley Nicholas PA-C [address] [place] [address] [address], [place], [address], [facility] [place] 02/24/2024 21:38:26 OBGyn Episode No OBEpisode recorded.
[2024-12-28 12:35] LABS: Anion Gap 13 (12-20); Blood Urea Nitrogen 20 mg/dL (9-16); Calcium 9.0 mg/dL (8.4-10.2); Carbon Dioxide 27 mmol/L (22-29); Chloride 107 mmol/L (96-108); Estimated Glomerular Filt Rate 30; Potassium 4.5 mmol/L (3.3-5.1); Sodium 142 mmol/L (135-145)
== END 2024-12-28 11:34 | disposition home or self-care (01) ==
LOC: HO.LAB 11:33
PROVIDERS: PCP Physician Assistant Medical; Visit Provider Internal Medicine Hypertension Specialist
DX: N18.9 Chronic kidney disease, unspecified (principal)
CPT/HCPCS: 36415; 80048

== ENCOUNTER 2025-01-01 08:49 | Outpatient (AMB) | payer OTHER, SELFPAY ==
--- NOTE | 2025-01-01 09:21 | HO.NEPHOV_ITS ---
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 Required: No Accompanied by: Self / Same As Patient Allergies gluten (GLUTEN) Allergy (Unknown, Verified 01/01/25 09:23) UNKNOWN mushroom Allergy (Unknown, Verified 01/01/25 09:23) UNKNOWN Medication List - Last Reconciled 01/01/25 by Manpreet Luke MD albuterol sulfate 90 mcg/actuation 2 puffs inhalation Q4-6H PRN amlodipine 10 mg PO DAILY ascorbic acid (vitamin C) 250 mg PO DAILY aspirin 81 mg PO DAILY atorvastatin 20 mg PO DAILY bupropion HCl XL 150 mg PO DAILY cefuroxime axetil 250 mg PO BID 4 days cholecalciferol (vitamin D3) 10 mcg PO DAILY cyanocobalamin (vitamin B-12) 1,000 mcg PO DAILY cyclobenzaprine 10 mg PO BID PRN dorzolamide-timolol 22.3-6.8 mg/mL 1 drp ophthalmic-Left Q12H levothyroxine 75 mcg PO DAILY@0600 lidocaine 5% 1 patch topical DAILY PRN meclizine 25 mg PO TID PRN metoprolol succinate ER 100 mg PO DAILY multivitamin 1 tab PO DAILY omeprazole 20 mg PO DAILY@0630 ondansetron 4 mg PO Q8-10H PRN prazosin 1 - 2 mg PO BEDTIME PRN ropinirole 0.25 mg PO BID spironolactone 50 mg PO DAILY tolterodine ER 4 mg PO DAILY walker As directed zonisamide 100 mg PO BID PRN HPI Comments Details: 69 year old female hx of htn, hld, hypothyroidism and CKD is here for follow-up Spironolactone has been increased to 50 mg QD No specific complaints today. Waiting for shoulder replacement Lost in September-now on welbutrin [facility] Medical History Osteopenia Glaucoma Osteoarthritis CKD (chronic kidney disease) stage 3, GFR 30-59 ml/min Vitamin D deficiency Vitamin B12 deficiency Shoulder pain, left Back pain Anxiety LOC (loss of consciousness) Bilateral leg edema Chest pain Dyspnea RLS (restless legs syndrome) Depression Presence of implantable pulmonary artery pressure and heart rate monitoring system Right knee injury Right shoulder injury Femur fracture, right Femur fracture, left delivery delivered Migraine Restless Kidney disease Heart murmur Overactive bladder Overactive adult syndrome Thyroid disease Hyperlipidemia Hypertension Surgical History History of cataract surgery (~05/2024) History of surgery Social History Household Members: Spouse Housing: Apartment Do you presently have visiting nurse or other home services: No Alcohol intake: current Alcohol intake frequency: 0-2 drinks per day Alcohol type: beer and hard liquor Patient Tobacco Use Status: Never used Tobacco Second Hand Smoke Exposure: No Substance Use Type: Marijuana Advance Directives Date on File: 09/10/20 service: No Physical Exam Vital Signs: Last Vital Signs Pulse 55 01/01/25 09:22 BP 146/60 H 01/01/25 09:22 Pulse Ox 96 01/01/25 09:22 Oxygen Delivery Method Room Air 01/01/25 09:22 BMI result Body Mass Index 35.4 Comfortable Neck supple no JVD. Lungs entry equal no rales. Heart S1-S2 heard no gallop or rub. Abdomen soft nontender. Neuro alert awake oriented. No asterixis. Extremities no edema. Results Reviewed Nephrology Results: Hgb, (12.0-16.0) 15.0 g/dl 12/09/24 WBC, (4.8-10.8) 7.8 X10*3/uL 12/09/24 Plt Count, (160-400) 196 X10*3/uL 12/09/24 Sodium, (135-145) 142 mmol/L 12/28/24 Potassium, (3.3-5.1) 4.5 mmol/L 12/28/24 Chloride, (96-108) 107 mmol/L 12/28/24 Carbon Dioxide, (22-29) 27 mmol/L 12/28/24 BUN, (9-16) 20 mg/dL H 12/28/24 Creatinine, (0.5-1.4) 1.68 mg/dL H 12/28/24 Calcium, (8.4-10.2) 9.0 mg/dL 12/28/24 Urine Protein, (Neg-Trace) Trace mg/dL 12/09/24 Assessment & Plan Assessment & Plan (1) CKD (chronic kidney disease): Code(s): N18.9 - Chronic kidney disease, unspecified Category: Medical (2) Hypertension: Code(s): I10 - Essential (primary) hypertension Category: Medical (3) Edema: Code(s): R60.9 - Edema, unspecified Category: Medical Plan From a renal standpoint Lauren is doing well. Renal function - Cr has bumped up ? Hypoperfusion recheck Increase PO fluids Blood pressure is better controlled. Encouraged to stay on low-sodium diet. Continue with same dose of spironolactone. Will continue monitor renal function closely. Avoid nephrotoxins including NSAIDs. Orders: Orders Total Protein Urine Random 2 Months N18.9 - Chronic kidney disease, unspecified UA and rflx microscopic 2 Months N18.9 - Chronic kidney disease, unspecified Creatinine Urine 2 Months N18.9 - Chronic kidney disease, unspecified Comprehensive Met. Panel 2 Months N18.9 - Chronic kidney disease, unspecified Complete Blood Count no Diff 2 Months N18.9 - Chronic kidney disease, unspecified Coding Level of Care Code Est Pt Level 4 (69861) Diagnoses CKD (chronic kidney disease) N18.9 Hypertension I10 Edema R60.9
[2025-01-01 09:22] VITALS: BP 146/60; PULSE 55; O2SAT 96; BMI 35.4
--- OUTSIDE RECORDS SUMMARY | 2025-01-01 09:23 | XMS_ITS | Data Portability ---
Author Organization [place] Jonny Tovar [facility] Surgeons [facility], [facility] Address [address] [place] [address] Care Team Providers Care Slackline Operator Name Role Phone SUKI CASE Primary Care [...] all patients experience complete pain relief and islam of full function with this procedure, and [...] an informed decision to proceed with surgery. [facility] speech recognition social work administrator software was used to create portions of [...] available Not available Not available SURGERY @ [facility] 2024 10:00A M Guillermo Carter MD Not available Not available Not available POST OP 15 2024 09:30A M Niranjan roblero PA-C Not available Not available Not available PT INITIAL EVAL 2024 10:30A M Morro Herrera, PT Not available Not available Not available PT FOLLOW-UP 2024 11:00A M Carmen Garrison, LUMBER BEARER Not available Not available Not available PT FOLLOW-UP 2024 09:30A M Carmen Garrison, LUMBER BEARER Not available Not available Not available PT FOLLOW-UP 2024 08:30A M Morro Herrera, PT Not available Not available Not available PT FOLLOW-UP 2024 10:30A M Morro Pyser, PT Not available Not available Not available PT FOLLOW-UP 2024 07:30A M Carmen [place], LUMBER BEARER Not available Not available Not available PT FOLLOW-UP 2024 10:00A M Carmen [place], LUMBER BEARER Not available Not available Not available PT FOLLOW-UP 2024 07:30A M Carmen [place], LUMBER BEARER Not available Not available Not available PT FOLLOW-UP 2024 10:00A M Carmen [place], LUMBER BEARER Not available Not available Not available PT FOLLOW-UP 2024 09:30A M Carmen [place], LUMBER BEARER Not available Not available Not available PT FOLLOW-UP 2024 10:00A M Carmen [place], LUMBER BEARER Not available Not available Not available PT FOLLOW-UP 2024 09:00A M Morro Pyser, PT Not available Not available Not available PT FOLLOW-UP 2024 10:00A M Carmen [place], LUMBER BEARER Not available Not available Not available PT FOLLOW-UP 2024 09:00A M Carmen [place], LUMBER BEARER Not available Not available Not available PT FOLLOW-UP 2024 09:30A M Carmen [place], LUMBER BEARER Not available Not available Not available PT FOLLOW-UP 2024 09:00A M Carmen [place], LUMBER BEARER Not available Not available Not available PT FOLLOW-UP 2024 09:30A M Carmen [place], LUMBER BEARER Not available Not available Not available PT FOLLOW-UP 2024 09:00A M Morro Pyser, PT Not available Not available Not available PT FOLLOW-UP 2024 09:30A M Carmen [place], LUMBER BEARER Not available Not available Not available PT FOLLOW-UP 2024 09:00A M Carmen [place], LUMBER BEARER Not available Not available Not available PT FOLLOW-UP 2024 09:30A M Carmen [place], LUMBER BEARER Not available Not available Not available PT FOLLOW-UP 2024 09:30A M Carmen [place], LUMBER BEARER Not available Not available Not available PT FOLLOW-UP 2024 09:30A M Carmen [place], LUMBER BEARER Not available Not available Not available PT FOLLOW-UP 2024 09:00A M Carmen Garrison, LUMBER BEARER Not available Not available Not available PT FOLLOW-UP 2024 10:30A M Morro Herrera, PT Not available Not available Not available PT FOLLOW-UP 2024 09:00A nAne Garrison, LUMBER BEARER Not available Not available Not available PT FOLLOW-UP 2024 09:00A M Morro Herrera, PT Not available Not available Not available Lab None recorded. Referral occupatio nal therapist referral - right trapezium fracture intririsi c tightness , aprom, stretch, strength, observation nurse 2023 024 [facility], [address], [place], [address], 03/16/2024 08:09:10 Procedures None recorded. Surgeries None recorded. Imaging XR, shoulder, 2 or more view - 4V LT SHOULDER ROOM 212 2024 025 [facility], [address], [address], [place], [address], 10/04/2024 14:36:49 Medication Orders None recorded. Patient TargetsNo targets recorded. Patient Instructions Encounter Date Encounter Id Patient Instructions Last Modified By Organization Details Last Modified Time 02/04/2024 [id number] cast removal* - cast off no xrays rm [email or web address] Not available 02/04/2024 12:07:59 Reason for Referral Occupational Therapist Refer ral for Closed fracture of scaphoid bone of wrist right trapezium fracture intririsic tightness, aprom, stretch, strength, observation nurse Referring Physician: Karley Nicholas, Orthopedic Surgery, Encounter Date: 02/23/2024 Results Created Date Observation Date Name Description Value Unit Range Abnormal Flag Note LastModifiedBy Organization Detail LastModifiedTime 12/29/19 24 12/29/2023 CT, wrist , w/o contr ast No observ ation record ed. [facility] [address] [place], [address], 12/30/2023 16:37:19 12/29/19 24 12/29/2023 CT, wrist , w/o contr ast No observ ation record ed. [facility] - [address], [place], [address], 12/30/2023 16:37:20 02/04/20 24 08/30/2018 imagi ng/di agnos tic resul t No observ ation record ed. [email or web address] Not Available 01/07 23:00:44 09/28/19 25 09/27/2024 XR, shoul manfred, 2 or more view http:/ [email or web address] ?Encry pted=s hAaTro YD8dLq bEUv6g %2BXZw aYqtaq 0bqfl% 2Fg9IQ a4ajBk vP9nXo QUaueC m3YtLR FvZlgJ JJ8mAn HZtai3 3d0953 AC0Kla n2NU6G nKiQtr MwF INTERFACE [facility] [address], [place], [address], 09/27/2024 13:28:58 09/28/19 25 09/27/2024 XR, shoul manfred, 2 or more view http:/ [email or web address] ?Encry pted=s hAaTro YD8dLq bEUv6g %2BXZw aYqtaq 0bqfl% 2Fg9IQ a4ajBk vP9nXo QUaueC m3YtLR FvZlgJ JJ8mAn HZtai3 0e4308 AC0Kla n2NU6G nKiQtr MwF INTERFACE [facility] [address], [place], [address], 09/27/2024 13:29:00 12/14/19 25 12/13/2024 CT, shoul manfred, w/o contr ast No observ ation record ed. JOSE[facility] [address] [address], [place], [address], 12/13/2024 12:06:28 Result Notes Documentation Provider Name and Address Organization Details Recorded Time Xr, Shoulder, 2 Or More View : [email or web address]? Encrypted=kjIoCicOP2rCdfG Uv6g%0IWMebRvtix9jgit%2Fg 8BVq2ghAxpN6eGtEJecvUt4Im UGFzYlzOIG3pOqSUvjp23m305 9WQ1Hlnl9UI0DkRlAzqFxA Not Available [facility] 09/27/2024 13:28: 59 Xr, Shoulder, 2 Or More View : [email or web address]? Encrypted=fpGrRgcUB7nIbzV Uv6g%8AIRnoImybb7mntg%2Fg 9TXh5laLlkA5sZgSTpfdGa6Rd KHJhLhpQUL9bAoOQgwa77h674 7PD2Szfp8MO6GbTdIwsJnA Not Available [facility] 09/27/2024 13:29: 00 Problems Name Problem SNOMED Code Status Onset Date Resolution Date Notes Provider Name and Address Organization Details Recorded Time Pain of left shoulder joint 046420581774 68549 Active 2015 Problem Code: M25.512; Problem Code Type: ICD-10; Status: 'A'; Not Available [facility] 11:59:31 Impingeme nt syndrome of left shoulder region 730322025661 104 Active 2015 Problem Code: M75.42; Problem Code Type: ICD-10; Status: 'A'; Not Available [facility] 11:59:31 Problem Notes None recorded. Procedures Surgical History Date Name Laterality Status Provider Name and Address Organization Details Recorded Time 4 Cast_Thumb Spica_11+ completed MESFIN GALLOWAY [facility] Orthopedic Surgeons [facility] 01/31/2024 10:12:54 4 Cast Removal completed MESFIN GALLOWAY [facility]geons [facility] 01/31/2024 10:11:26 4 Cast_Thumb Spica_11+ completed Roxana Carranza [facility] Orthopedic [facility] 01/18/2024 12:07:09 4 Cast Removal completed Roxana Carranza [facility] 01/18/2024 12:02:40 4 Cast_Short Arm/Ulnar Gutter/Radia l Gutter_11+ completed [facility] 12/21/2023 10:36:46 4 Cast Removal completed [facility] 12/21/2023 10:35:41 Imaging Results None recorded. Procedure Notes None recorded. Medical Equipment None Reported. Allergies Allergen ID Allergen Name Allergen Category Reaction Reaction Severity Criticality Documentation Date Start Date Code Code System Note Provider Name and Address Organization Details Recorded Time 89711 wheat preparati on food,medi cation Not available Not available Not available 08/09/20232008 91938 52 RxNorm Aller gyRea ction : 'O'; Not Available [facility] 4 12:09:06 99643 cultivate d mushroom extract food,medi cation Not available Not available Not available 08/09/20232015 83985 17 RxNorm Not Available [facility] 4 12:09:06 Medications Name Sig Start [...] t Available prazosin 1 mg capsule TAKE 1-2 CAPSULES BY MOUTH EVERY DAY AT BEDTIME NEEDED active Not Available Not Available No t [...] Available No t Available aspirin 81 mg tablet,ehladio yed release TAKE 1 TABLET BY MOUTH [...] Not Available Not Available N ot Available oxybutynin chloride ER 5 mg tablet,exte nded release 24 hr TAKE 1 TABLET BY MOUTH EVERY DAY DO NOT CRUSH, CHEW, OR SPLIT active Not Available Not Available No t Available omeprazole 20 mg capsule,del ayed release [...] mg 24 hr tablet, extended release TAKE 1 TABLET BY MOUTH EVERY DAY [...] Updated DateTime 09/27/2024 162.56 cm 30 kg/m2 55830.66 g BAYLEE SCHMITT [facility] Orthopedic Surgeons [facility] 09/27/2024 13:17:08 Date Recorded Body height Body mass index (BMI) Body weight Provider Name and Address Organization Details Last Updated DateTime 02/04/2024 134.62 cm 45.1 kg/m2 24545.63 g [facility] 02/04/2024 10:21:51 Date Recorded Body height Body mass index (BMI) Body weight Provider Name and Address Organization Details Last Updated DateTime 02/23/2024 162.56 cm 30 kg/m2 51101.66 [facility] Orthopedic Surgeons [facility] 02/23/2024 09:05:54 Social History None recorded. Functional Status None recorded. Mental Status None recorded. Family History Nothing Reported. Medical History Condition Response Allergies/Hayfever N Coronary Artery Disease N Anxiety/Depression N Breathing or lung disorders N Emphysema N Nerve Disorders N Thyroid Problems N COPD N Pacemaker N Anemia N Kidney/Bladder Problems Y Vascular Disease N Heart Trouble Y Heart Attack ([place]) N Gastrointestinal Disease Y Cholesterol Y Diabetes [...] SNOMED-CT Code Diagnosis ICD10 Code Diagnosis Note [id number] Karley Nicholas PA-C [facility] [address] [place] [address] 12/07/2023 08:45:24 12/31/2023 14:57:04 Closed fracture of scaphoid bone of wrist 21812399 S62.001A [id number] Karley Nicholas PA-C [facility] [address] [place], [place] [address] 12/08/2023 09:38:20 12/08/2023 10:02:20 Closed fracture of scaphoid bone of wrist 44411092 S62.001A [id number] Karley Nicholas PA-C [facility] [address] [place] [address] 12/21/2023 10:09:58 12/21/2023 10:38:02 Closed fracture of navicular bone of right wrist 1917507387 2748310 S62.001A [id number] Karley Nicholas PA-C [facility] [address] [place] [address] 01/05/2024 08:40:38 02/03/2024 11:19:53 Pain of right wrist 5547097224 75544 M25.443 [id number] Karley Nicholas PA-C [facility] [address] [place] [address] 01/18/2024 11:35:16 01/18/2024 12:09:18 Pain of right wrist 6754665116 05129 M25.430 [id number] Karley Nicholas PA-C [facility] [address] [place] [address] 01/31/2024 09:51:45 01/31/2024 10:15:26 Pain of right wrist 5683479998 59142 M25.429 [id number] Karley Nicholas PA-C [facility] [address] [place] [address] 02/04/2024 09:40:33 02/28/2024 14:08:17 Pain of right wrist 8225580607 66489 M25.531 Closed fra cture of scaphoid bone of wrist 95361192 S62.001A [id number] Karley Nicholas PA-C [facility] [address] [place] [address] 02/23/2024 09:00:30 03/16/2024 08:09:10 Closed fracture of scaphoid bone of wrist 81379366 S62.001A [id number] Guillermo Carter MD [facility] [address] [place] [address] 09/27/2024 12:13:01 10/04/2024 14:36:49 Pain of left shoulder joint 4996097282 2021964 M25.512 Health Concerns Section Related Observation LastModified by Organization Detai ls LastModified Time None Recorded Concern Status LastModified by Organization Details LastModified Time None Recorded Advance Directives Directive None Recorded Payers Insurance Date Sequence Insurance Name Policy Number Policy George Covered Member ID George Member ID Guarantor Name 11/28/2024 1 [facility] - DOS ON OR AFTER 2022 - [facility] (MEDICARE REPLACEMENT/ADV ANTAGE - HMO) Lauren Lemos [id number] Lauren Lemos 12/05/2024 1 [facility] (MEDICARE REPLACEMENT/ADV ANTAGE - HMO) Lauren Lemos [id number] Lauren Lemos 11/28/2024 1 MEDICARE B-[place]: [facility] [employer] Lauren Lemos [id number] Lauren Lemos 12/30/2024 1 [facility] - DOS ON OR AFTER 2022 - [employer] (MEDICARE REPLACEMENT/ADV ANTAGE - PPO) Lauren Lemos [id number] Lauren Lemos OBGyn Episode No OBEpisode recorded.
--- OUTSIDE RECORDS SUMMARY | 2025-01-01 09:23 | XMS_ITS | Clinical Summary ---
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
--- OUTSIDE RECORDS SUMMARY | 2025-01-01 09:23 | XMS_ITS | Encounter Summary ---
Author Organization [facility] Address [address] [place] [address] Care Team Providers Care Asset Protection Officer Name Role Phone Haja Donahue MD Primary Care Provider + [phone] Haja Donahue MD Primary Care Provider + [phone] Haja Donahue MD Unavailable [phone] Brent Ellis MD Unavailable [phone] Carlos Castañeda PA-C Primary Care Provider [phone] Nicky Miller Unavailable Unavailable Mark Acuña MD Unavailable [phone] Nanette Wyatt PA-C Unavailable Sunita Sanchez NP Unavailable [phone] Reason for Visit * Reason Onset Date Comments refill request 06/23/2019 Encounter Details Date Type Department Care Team Description 06/23/2019 Refill Adult Medicine [address] [phone] Haja Donahue MD [address] [place] [address] [phone] refill request Social History Tobacco Use Types [...] encounter Miscellaneous Notes * Telephone Encounter - Lauren Goncalves - 06/23/2019 12:37 PM EST Patient would like script to be: E-PRESCRIBED/FAXED TO PHARMACY When was the patients last office visit in Adult Medicine?: 04/19/19 When was the last time the patient saw their PCP? Same as above Does patient have an upcoming appointment? Yes 07/20/19 (THE MEDICATION IS NOT ON THE MED LIST AND IS IDENTIFIED BELOW): {MED LIST:79850) Med name: Acetaminophen-Codeine (TYLENOL/CODEINE #3) 300-30 MG Tab Dosage: Take 1 Tab by mouth daily as needed for Pain. - Oral # of tablets: Local pharmacy with request for 30 -day supply Instructions: Did you check the pharmacy information above?: YES Patients current insurance carrier: Payor: MEDICARE-[employer] / Plan: [place] / Product Type: MEDICAREFEE-FOR-SERVICE documented in this encounter Plan of Treatment Not on file documented as of this encounter Visit Diagnoses Not on filedocumented in this encounter Care Teams Asset Protection Officer Relationship Specialty Start Date End Date Haja Donahue MD [address] [place] [address] PCP - General Internal Medicine 01/30/19 04/03/20 Haja Donahue MD [address] [place] [address] [phone] PCP - General 10/29/20 5/25/21 Carlos Castañeda PA-C [address] [place] [address] PCP - General Internal Medicine 10/30/20 Haja Donahue MD [address] [place] [address] Internal Medicine 04/04/20 Brent Ellis MD [address] [place] [address] Field Technical Assistant Cardiovascular Disease 07/16/20 Nicky Miller PA [address] [place] [address] Specialist Cardiology 02/06/21 11/11/23 Mark Acuña MD [address] [place] [address] Specialist Cardiology 07/31/21 Nanette Wyatt PA-C [address] [place] [address] Specialist Cardiology 07/31/21 Sunita Sanchez NP [address] [place] [address] Nurse Practitioner Cardiology 10/20/23 documented as of this encounter
--- OUTSIDE RECORDS SUMMARY | 2025-01-01 09:23 | XMS_ITS | Encounter Summary ---
Author Organization [facility] Address [address] [place] [address] Care Team Providers Care Insurance Territory Manager Name Role Phone Carlos Castañeda Primary Care Provider [phone] Reason for Visit * Reason Onset Date Comments Results 12/26/2024 [facility] Encounter Details Date Type Department Care Team (Late st Contact Info) Description 12/26/[address] [facility] [address] [place] [address] Carlos Castañeda PA [address] [place], [place] [phone] Results ([facility]) Social History Tobacco Use [...] - 12/26/2024 12:53 PM EDT Dwain from [facility] [employer] [facility] is requesting current med list and labs be faxed over to [phone], Attn: Dwain * Samantha Yu - 12/26/2024 12:18 PM EDT Sirena Kellogg NP from [facility] calling for recent lab results. Surgery is scheduled for 01/10/25, left shoulder surgery. Caller is asking for a call back from a nurse, today, per her request. documented in this encounter Plan of Treatment Upcoming Encounters Date Type Department Care Team (Late st Contact Info) Description 06/13/2025 10:30 AM EST Office Visit Adult Medicine [facility] [address] [place] [phone] Carlos Castañeda PA [address] [place] [address] documented as of this encounter Visit Diagnoses Not on filedocumented in this encounter Care Teams Insurance Territory Manager Relationship Specialty Start Date End Date Carlos Castañeda PA [address] [place] [address] PCP - General Internal Medicine 04/17/24 documented as of this encounter
== END 2025-01-01 09:36 | disposition home or self-care (01) ==
LOC: HO.HKA 08:50
PROVIDERS: PCP Physician Assistant Medical; Visit Provider Internal Medicine Hypertension Specialist
DX: I12.9 Hypertensive chronic kidney disease with stage 1 through stage 4 chronic kidney disease, or unspecified chronic kidney disease (principal); N18.9 Chronic kidney disease, unspecified; R60.9 Edema, unspecified
CPT/HCPCS: 99214

== ENCOUNTER → 2025-01-01 08:49 | Outpatient (BNVA) | payer OTHER, SELFPAY | PROVIDERS: PCP Physician Assistant Medical; Visit Provider Internal Medicine Hypertension Specialist | DX: I10 Essential (primary) hypertension (principal); N18.9 Chronic kidney disease, unspecified; R60.9 Edema, unspecified; E78.5 Hyperlipidemia, unspecified | CPT/HCPCS: 99212 ==

== ENCOUNTER 2025-04-03 07:42 | Outpatient (REF) | payer MEDICARE, SELFPAY ==
--- OUTSIDE RECORDS SUMMARY | 2025-04-03 07:44 | XMS_ITS | Encounter Summary ---
Author Organization [facility] Address [address] [place] [address] Care Team Providers Care Butcher Supervisor Name Role Phone Haja Donahue MD Unavailable [phone] Brent Ellis MD Unavailable [phone] Carlos Castañeda PA-C Primary Care Provider [phone] Nicky Miller Unavailable Unavailable Mark Acuña MD Unavailable [phone] Nanette Wyatt PA-C Unavailable Sunita Sanchez NP Unavailable [phone] Encounter Details Date Type Department Care Team Description 12/09/2022 [facility] Medical Records [address] [place] [address] Social History Tobacco Use Types Packs/Day Years [...] on filedocumented in this encounter Care Teams Butcher Supervisor Relationship Specialty Start Date End Date Carlos Castañeda PA-C [address] [place] [address] PCP - General Internal Medicine 10/30/20 Haja Donahue MD [address] [place] [address] Internal Medicine 04/04/20 Brent Ellis MD [address] [place] [address] Photographic Aide Cardiovascular Disease 07/16/20 Nicky Miller PA [address] [place] [address] Specialist Cardiology 02/06/21 11/11/23 Mark Acuña MD [address] [address] Specialist Cardiology 07/31/21 Nanette Wyatt PA-C [address] [address] Specialist Cardiology 07/31/21 Sunita Sanchez NP [address] [place] [address] Nurse Practitioner Cardiology 10/20/23 documented as of this encounter
--- OUTSIDE RECORDS SUMMARY | 2025-04-03 07:44 | XMS_ITS | Encounter Summary ---
Author Organization [facility] Address [address] [place] [address] Care Team Providers Care Log Chain Feeder Name Role Phone Minh Ferrell MD Primary Care Provider Un available Haja Donahue MD Primary Care Provider [phone] Haja Donahue MD Primary Care Provider + [phone] Haja Donahue MD Unavailable [phone] Brent Ellis MD Unavailable [phone] Carlos Castañeda PA-C Primary Care Provider [phone] Nicky Miller Unavailable Unavailable Mark Acuña MD Unavailable Nanette Wyatt PA-C Unavailable Sunita Sanchez NP Unavailable [phone] Reason for Visit * Reason Comments E-prescribe Rx Request Encounter Details Date Type Department Care Team Description 04/23/2018 Refill Adult Medicine [address] [phone] Elver Mustafa PA-C [address] [place] [address] [phone] E-prescribe Rx Request Social History Tobacco Use [...] / [place] / Product Type: MEDICARE [id number] documented in this encounter Plan of Treatment Not on file documented as of this encounter Visit Diagnoses Not on filedocumented in this encounter Care Teams Log Chain Feeder Relationship Specialty Start Date End Date Minh Ferrell MD PCP - General Internal Medicine 08/30/15 01/29/19 Haja Donahue MD [address] [place] [address] PCP - General Internal Medicine 01/30/19 04/03/20 Haja Donahue MD [address] [place] [address] PCP - General 04/04/20 10/29/20 Carlos Castañeda PA-C [address] [place] [address] PCP - General Internal Medicine 10/30/20 Haja Donahue MD [address] [place] [address] Internal Medicine 04/04/20 Brent Ellis MD [address] [place] [address] [place] [address] Improvement Auditor Cardiovascular Disease 07/16/20 Nicky Miller PA [address] [place] [address] Specialist Cardiology 02/06/21 11/11/23 Mark Acuña MD [address] [address] Specialist Cardiology 07/31/21 Nanette Wyatt PA-C [address] [address] Specialist Cardiology 07/31/21 Sunita Sanchez NP [address] [place] [address] Nurse Practitioner Cardiology 10/20/23 documented as of this encounter
--- OUTSIDE RECORDS SUMMARY | 2025-04-03 07:44 | XMS_ITS | Encounter Summary ---
Author Organization Formerly [facility] Address [address] [place] [address] Care Team Providers Care Mathematical Statistician Name Role Phone Haja Donahue MD Unavailable [phone] Brent Ellis MD Unavailable [phone] Carlos Castañeda PA-C Primary Care Provider [phone] Nicky Miller Unavailable Unavailable Mark Acuña MD Unavailable [phone] Nanette Wyatt PA-C Unavailable Sunita Sanchez NP Unavailable [phone] Reason for Visit * Reason Onset Date Comments Medication 10/30/2020 Encounter Details Date Type Department Care Team Description 10/30/2020 Telephone Adult Medicine [address] [id number] Carlos Castañeda PA-C [address] [place] [address] [phone] Medication Social History Tobacco Use Types Packs/Day [...] on filedocumented in this encounter Care Teams Mathematical Statistician Relationship Specialty Start Date End Date Carlos Castañeda PA-C 4 [place] [address] PCP - General Internal Medicine 10/30/20 Haja Donahue MD [address] [place] [address]28 Internal Medicine 04/04/20 Brent Ellis MD [address] [place] [address] [address] [place] [address] Litigation Legal Secretary Cardiovascular Disease 07/16/20 Nicky Miller PA [address] [place] [address] Specialist Cardiology 02/06/21 11/11/23 Mark Acuña MD [address] [place] [address] Specialist Cardiology 07/31/21 Nanette Wyatt PA-C [address] [place] [address] Specialist Cardiology 07/31/21 Sunita Sanchez NP [address] [place] [address] Nurse Practitioner Cardiology 10/20/23 documented as of this encounter
--- OUTSIDE RECORDS SUMMARY | 2025-04-03 07:44 | XMS_ITS | Encounter Summary ---
Author Organization [facility] Address [address] [place] [address] Care Team Providers Care Research Agricultural Engineer Name Role Phone Haja Donahue MD Unavailable [phone] Brent Ellis MD Unavailable [phone] Carlos Castañeda PA-C Primary Care Provider [phone] Nicky Miller Unavailable Unavailable Mark Acuña MD Unavailable [phone] Nanette Wyatt PA-C Unavailable Sunita Sanchez NP Unavailable [phone] Encounter Details Date Type Department Care Team Description 12/12/2020 Corporate Claims Examiner Report Medical Records [address] [place] [address] Carlos Quiles MD Social History Tobacco Use [...] on filedocumented in this encounter Care Teams Research Agricultural Engineer Relationship Specialty Start Date End Date Carlos Castañeda PA-C [address] [place] [address] PCP - General Internal Medicine 10/30/20 Haja Donahue MD [address] [place] [address] Internal Medicine 04/04/20 Brent Ellis MD [address] [place] [address] Nail Kegger Cardiovascular Disease 07/16/20 Nicky Miller PA [address] [place] [address] Specialist Cardiology 02/06/21 11/11/23 Mark Acuña MD [address] [address] Specialist Cardiology 07/31/21 Nanette Wyatt PA-C [address] [address] Specialist Cardiology 07/31/21 Sunita Sanchez NP [address] [place] [address] Nurse Practitioner Cardiology 10/20/23 documented as of this encounter
--- OUTSIDE RECORDS SUMMARY | 2025-04-03 07:44 | XMS_ITS | Encounter Summary ---
Author Organization [facility] Address [address] [place] [address] Care Team Providers Care Turbo Generator Oiler Name Role Phone Minh Ferrell MD Primary Care Provider Un available Haja Donahue MD Primary Care Provider + [phone] Haja Donahue MD Primary Care Provider + [phone] Haja Donahue MD Unavailable [phone] Brent Ellis MD Unavailable [phone] Carlos Castañeda PA-C Primary Care Provider [phone] Nicky Miller Unavailable Unavailable Mark Acuña MD Unavailable Nanette Wyatt PA-C Unavailable Sunita Sanchez NP Unavailable [phone] Reason for Visit * Reason Comments E-prescribe Rx Request Encounter Details Date Type Department Care Team Description 06/11/2018 Refill Adult Medicine [address] [phone] Elver Mustafa PA-C [address] [place] [address] [phone] E-prescribe Rx Request Social History Tobacco Use [...] / Plan: [place] / Product Type: MEDICARE [id number] documented in this encounter Plan of Treatment Not on file documented as of this encounter Visit Diagnoses Not on filedocumented in this encounter Care Teams Turbo Generator Oiler Relationship Specialty Start Date End Date Minh Ferrell MD PCP - General Internal Medicine 08/30/15 01/29/19 Haja Donahue MD [address] [place] [address] PCP - General Internal Medicine 01/30/19 04/03/20 Haja Donahue MD [address] [place] [address] PCP - General 04/04/20 10/29/20 Carlos Castañeda PA-C [address] [place] [address] PCP - General Internal Medicine 10/30/20 Haja Donahue MD [address] [place] [address] Internal Medicine 04/04/20 Brent Ellis MD [address] [place] [address] Director Broadcast Cardiovascular Disease 07/16/20 Nicky Miller PA [address] [place] [address] Specialist Cardiology 02/06/21 11/11/23 Mark Acuña MD [address] [address] Specialist Cardiology 07/31/21 Nanette Wyatt PA-C [address] [facility] [address] [place] [address] Specialist Cardiology 07/31/21 Sunita Sanchez NP [address] [place] [address] Nurse Practitioner Cardiology 10/20/23 documented as of this encounter
--- OUTSIDE RECORDS SUMMARY | 2025-04-03 07:44 | XMS_ITS | Encounter Summary ---
Author Organization [facility] Address [address] [place] [address] Care Team Providers Care Home Restoration Service Supervisor Name Role Phone Haja Donahue MD Primary Care Provider + [phone] Haja Donahue MD Primary Care Provider + [phone] Haja Donahue MD Unavailable [phone] Brent Ellis MD Unavailable [phone] Carlos Castañeda PA-C Primary Care Provider +[phone] Nicky Miller Unavailable Unavailable Mark Acuña MD Unavailable [phone] Nanette Wyatt PA-C Unavailable Sunita Sanchez NP Unavailable [phone] Encounter Details Date Type Department Care Team Description 04/24/2019 Hospital Medical Records [address] [place] [address] Social History Tobacco Use Types Packs/Day Years [...] on filedocumented in this encounter Care Teams Home Restoration Service Supervisor Relationship Specialty Start Date End Date Haja Donahue MD [address] [place] [address] PCP - General Internal Medicine 01/30/19 04/03/20 Haja Donahue MD [address] [place] [address] PCP - General 04/04/20 10/29/20 Carlos Castañeda PA-C [address] [place] [address] PCP - General Internal Medicine 10/30/20 Haja Donahue MD [address] [place] [address] Internal Medicine 04/04/20 Brent Ellis MD [address] [place] [address] Rehabilitation Services Aide Cardiovascular Disease 07/16/20 Nicky Miller PA [address] [place] [address] Specialist Cardiology 02/06/21 11/11/23 Mark Acuña MD [address] [address] Specialist Cardiology 07/31/21 Nanette Wyatt PA-C [address] [address] Specialist Cardiology 07/31/21 Sunita Sanchez NP [address] [place] [address] Nurse Practitioner Cardiology 10/20/23 documented as of this encounter
--- OUTSIDE RECORDS SUMMARY | 2025-04-03 07:44 | XMS_ITS | Encounter Summary ---
Author Organization [facility] Address [address] [place] [address] Care Team Providers Care Internet Merchant Name Role Phone Haja Donahue MD Unavailable [phone] Brent Ellis MD Unavailable [phone] Carlos Castañeda PA-C Primary Care Provider [phone] Mark Acuña MD Unavailable [phone] Nanette Wyatt PA-C Unavailable Sunita Sanchez NP Unavailable [phone] Reason for Visit * Reason Onset Date Comments Pre-op Needed 04/07/2024 Encounter Details Date Type Department Care Team Description 04/07/2024 Telephone Adult Medicine [address] [phone] Carlos Castañeda PA-C [address] [place] [address] [phone] Pre-op Needed Social History Tobacco Use Types [...] Castañeda . [facility] [place] [facility] two week. Please reschedule. Patient knows that you will call on to reschedule with someone else. documented in this encounter Plan of Treatment Not on file documented as of this encounter Visit Diagnoses Not on filedocumented in this encounter Care Teams Internet Merchant Relationship Specialty Start Date End Date Carlos Castañeda PA-C [address] [place] [address] PCP - General Internal Medicine 10/30/20 Haja Donahue MD [address] [place] [address] Internal Medicine 04/04/20 Brent Ellis MD [address] [place] [address] [place] [address] Industrial Conveyor Belt Repairer Cardiovascular Disease 07/16/20 Mark Acuña MD [address] [address] Specialist Cardiology 07/31/21 Nanette Wyatt PA-C [address] [address] Specialist Cardiology 07/31/21 Sunita Sanchez NP [address] [place] [address] Nurse Practitioner Cardiology 10/20/23 documented as of this encounter
--- OUTSIDE RECORDS SUMMARY | 2025-04-03 07:44 | XMS_ITS | Encounter Summary ---
Author Organization [facility] Address [address] [place] [address] Care Team Providers Care Archives Specialist Name Role Phone Haja Donahue MD Unavailable [phone] Brent Ellis MD Unavailable [phone] Carlos Castañeda PA-C Primary Care Provider [phone] Nicky Miller Unavailable Unavailable Mark Acuña MD Unavailable [phone] Nanette Wyatt PA-C Unavailable Sunita Sanchez NP Unavailable [phone] Encounter Details Date Type Department Care Team Description 11/18/2020 Phd Intern Report Medical Records [address] [place] [address] Maria Antonia Peres Social History Tobacco Use [...] on filedocumented in this encounter Care Teams Archives Specialist Relationship Specialty Start Date End Date Carlos Castañeda PA-C [address] [place] [address] PCP - General Internal Medicine 10/30/20 Haja Donahue MD [address] [place] [address] Internal Medicine 04/04/20 Brent Ellis MD [address] [place] [address] Outsole Cementer Cardiovascular Disease 07/16/20 Nicky Miller PA [address] [place] [address] Specialist Cardiology 02/06/21 11/11/23 Mark Acuña MD [address] [place] [address] Specialist Cardiology 07/31/21 Nanette Wyatt PA-C [address] [place] [address] Specialist Cardiology 07/31/21 Sunita Sanchez NP [address] [place] [address] Nurse Practitioner Cardiology 10/20/23 documented as of this encounter
--- OUTSIDE RECORDS SUMMARY | 2025-04-03 07:44 | XMS_ITS | Encounter Summary ---
Author Organization [facility] Address [address] [place] [address] Care Team Providers Care Medical Case Manager Name Role Phone Haja Donahue MD Unavailable [phone] Brent Ellis MD Unavailable [phone] Carlos Castañeda PA-C Primary Care Provider Nicky Miller Unavailable Unavailable Mark Acuña MD Unavailable [phone] Nanette Wyatt PA-C Unavailable Sunita Sanchez NP Unavailable Reason for Visit * Reason Onset Date Comments Prior Authorization 04/20/2023 Encounter Details Date Type Department Care Team Description 04/20/2023 Telephone Adult [address] [phone] Carlos Castañeda PA-C [address] [place] [address] [phone] Prior Authorization Social History Tobacco Use Types Packs/Day Years [...] Recorded In the last 10 days, have tay troy been in contact with someone who was confirmed or suspected to have Coronavirus/COVID-19? No / Unsure 04/02/2023 9:56 AM EDT documented as of this encounter Miscellaneous Notes * Telephone Encounter - Rachna Garcia M.A. - 04/30/2023 10:49 AM EST Per cover my meds Auth approved Rachna Garcia Prior Auth Dep Ext 510 * Telephone Encounter - Nanette Kelly M.A. - 04/20/2023 9:30 AM EST Prior authorization for the lidocaine patch was completed on cover my meds Dx code M54.16 right lumbar radiculopathy * Telephone Encounter - Echo Prieto - 04/20/2023 8:34 AM EST Prior Authorization for Medication-do not complete and send this encounter unless you have the fax from the pharmacy. Is this a Cover My Meds request: Yes -- Steward Code [id number] Name of Medication lidocaine (LIDODERM) 5 % Dose of Medication What is the RX # from the faxed refill? How does patient take this med? What Pharmacy did the fax come from: [facility] fax #: [phone] Third Democrat Information from fax: What Prescription Plan does the patient have? BIN/PCN if applicable: Cardholder ID: Person Code: Relationship Code: Help desk phone: documented in this encounter Plan of Treatment Not on file documented as of this encounter Visit Diagnoses Not on filedocumented in this encounter Care Teams Medical Case Manager Relationship Specialty Start Date End Date Carlos Castañeda PA-C [address] [place] [address] PCP - General Internal Medicine 10/30/20 Haja Donahue MD [address] [place] [address] Internal Medicine 04/04/20 Brent Ellis MD [address] [place] [address] Military Source Operations Specialist Cardiovascular Disease 07/16/20 Nicky Miller PA [address] [place] [address] Specialist Cardiology 02/06/21 11/11/23 Mark Acuña MD [address] [address] Specialist Cardiology 07/31/21 Nanette Wyatt PA-C [address] [address] Specialist Cardiology 07/31/21 Sunita Sanchez NP [address] [place] [address] Nurse Practitioner Cardiology 10/20/23 documented as of this encounter
--- OUTSIDE RECORDS SUMMARY | 2025-04-03 07:44 | XMS_ITS | Encounter Summary ---
Author Organization [facility] Address [address] [place] [address] Care Team Providers Care Cafe Or Restaurant Manager Name Role Phone Haja Donahue MD Unavailable [phone] Brent Ellis MD Unavailable [phone] Carlos Castañeda PA-C Primary Care Provider [phone] Nicky Miller Unavailable Unavailable Mark Acuña MD Unavailable [phone] Nanette Wyatt PA-C Unavailable Sunita Sanchez NP Unavailable [phone] Encounter Details Date Type Department Care Team Description 11/19/2022 [facility] Medical Records [address] [place] [address] Bob Wren Social History Tobacco Use Types [...] on filedocumented in this encounter Care Teams Cafe Or Restaurant Manager Relationship Specialty Start Date End Date Carlos Castañeda PA-C [address] [place] [address] PCP - General Internal Medicine 10/30/20 Haja Donahue MD [address] [place] [address] Internal Medicine 04/04/20 Brent Ellis MD [address] [place] [address] Senior Technologist Cardiovascular Disease 07/16/20 Nicky Miller PA [address] [place] [address] Specialist Cardiology 02/06/21 11/11/23 Mark Acuña MD [address] [place] [address] Specialist Cardiology 07/31/21 Nanette Wyatt PA-C [address] [place] [address] Specialist Cardiology 07/31/21 Sunita Sanchez NP [address] [place] [address] Nurse Practitioner Cardiology 10/20/23 documented as of this encounter
--- OUTSIDE RECORDS SUMMARY | 2025-04-03 07:44 | XMS_ITS | Encounter Summary ---
Author Organization [facility] Address [address] [place] [address] Care Team Providers Care Finishing Operator Name Role Phone Haja Donahue MD Unavailable [phone] Brent Ellis MD Unavailable [phone] Carlos Castañeda PA-C Primary Care Provider [phone] Nicky Miller Unavailable Unavailable Mark Acuña MD Unavailable [phone] Nanette Wyatt PA-C Unavailable Sunita Sanchez NP Unavailable [phone] Encounter Details Date Type Department Care Team Description 02/17/2021 [facility] Controlled Substance Contract Medical Records [address] [place] [address] Abstract, Provider Social History Tobacco Use Types [...] on filedocumented in this encounter Care Teams Finishing Operator Relationship Specialty Start Date End Date Carlos Castañeda PA-C [address] [place] [address] PCP - General Internal Medicine 10/30/20 Haja Donahue MD [address] [place] [address] Internal Medicine 04/04/20 Brent Ellis MD [address] [place] [address] Cathode Ray Tube Assembler Cardiovascular Disease 07/16/20 Nicky Miller PA [address] [place] [address] Specialist Cardiology 02/06/21 11/11/23 Mark Acuña MD [address] [place] [address] Specialist Cardiology 07/31/21 Nanette Wyatt PA-C [address] [place] [address] Specialist Cardiology 07/31/21 Sunita Sanchez NP [address] [place] [address] Nurse Practitioner Cardiology 10/20/23 documented as of this encounter
--- OUTSIDE RECORDS SUMMARY | 2025-04-03 07:44 | XMS_ITS | Encounter Summary ---
Author Organization [facility] Address [address] [place] [address] Care Team Providers Care Section Supervisor Name Role Phone Minh Ferrell MD Primary Care Provider Un available Haja Donahue MD Primary Care Provider + [phone] Haja Donahue MD Primary Care Provider + [phone] Haja Donahue MD Unavailable [phone] Brent Ellis MD Unavailable [phone] Carlos Castañeda PA-C Primary Care Provider [phone] Nicky Miller Unavailable Unavailable Mark Acuña MD Unavailable [phone] Nanette Wyatt PA-C Unavailable Sunita Sanchez NP Unavailable [phone] Encounter Details Date Type Department Care Team Description 05/18/2018 [facility] Medical Records [address] [place] [address] Abstract, Provider Social History Tobacco Use Types [...] on filedocumented in this encounter Care Teams Section Supervisor Relationship Specialty Start Date End Date Minh Ferrell MD PCP - General Internal Medicine 08/30/15 01/29/19 Haja Donahue MD [address] [place] [address] PCP - General Internal Medicine 01/30/19 04/03/20 Haja Donahue MD [address] [place] [address] PCP - General 04/04/20 10/29/20 Carlos Castañeda PA-C [address] [place] [address] PCP - General Internal Medicine 10/30/20 Haja Donahue MD [address] [place] [address] Internal Medicine 04/04/20 Brent Ellis MD [address] [place] [address] Bufferer Cardiovascular Disease 07/16/20 Nicky Miller PA [address] [place] [address] Specialist Cardiology 02/06/21 11/11/23 Mark Acuña MD [address] [address] Specialist Cardiology 07/31/21 Nanette Wyatt PA-C [address] [address] Specialist Cardiology 07/31/21 Sunita Sanchez NP [address] [place] [address] Nurse Practitioner Cardiology 10/20/23 documented as of this encounter
--- OUTSIDE RECORDS SUMMARY | 2025-04-03 07:44 | XMS_ITS | Encounter Summary ---
Author Organization [facility] Address [address] [place] [address] Care Team Providers Care Monitor Car Operator Name Role Phone Minh Ferrell MD Primary Care Provider Un available Haja Donahue MD Primary Care Provider + [phone] Haja Donahue MD Primary Care Provider + [phone] Haja Donahue MD Unavailable [phone] Brent Ellis MD Unavailable [phone] Carlos Castañeda PA-C Primary Care Provider [phone] Nicky Miller Unavailable Unavailable Mark Acuña MD Unavailable +[phone] Nanette Wyatt PA-C Unavailable Sunita Sanchez NP Unavailable [phone] Encounter Details Date Type Department Care Team Description 10/12/2018 [facility] Medical Records [address] [place] [address] Abstract, Provider Social History Tobacco Use Types [...] on filedocumented in this encounter Care Teams Monitor Car Operator Relationship Specialty Start Date End Date Minh Ferrell MD PCP - General Internal Medicine 08/30/15 01/29/19 Haja Donahue MD [address] [place] [address] PCP - General Internal Medicine 01/30/19 04/03/20 aHja Donahue MD [address] [place] [address] PCP - General 04/04/20 10/29/20 Carlos Castañeda PA-C [address] [place] [address] PCP - General Internal Medicine 10/30/20 Haja Donahue MD [address] [place] [address]36 Internal Medicine 04/04/20 Brent Ellis MD [address] [place] [address] Registered Sales Assistant Cardiovascular Disease 07/16/20 Nicky Miller PA [address] [place] [address] Specialist Cardiology 02/06/21 11/11/23 Mark Acuña MD [address] [address] Specialist Cardiology 07/31/21 Nanette Wyatt PA-C [address] [address] Specialist Cardiology 07/31/21 Sunita Sanchez NP [address] [place] [address] Nurse Practitioner Cardiology 10/20/23 documented as of this encounter
--- OUTSIDE RECORDS SUMMARY | 2025-04-03 07:44 | XMS_ITS | Encounter Summary ---
Author Organization [facility] Address [address] [place] [address] Care Team Providers Care Education Reporter Name Role Phone Haja Donahue MD Primary Care Provider + [phone] Haja Donahue MD Unavailable +[phone] Brent Ellis MD Unavailable [phone] Carlos Castañeda PA-C Primary Care Provider +[phone] Nicky Miller Unavailable Unavailable Mark Acuña MD Unavailable +[phone] Nanette Wyatt PA-C Unavailable Sunita Sanchez NP Unavailable [phone] Encounter Details Date Type Department Care Team Description 09/17/2020 [facility] Medical Records [address] [place] [address] Dora Ring Social History Tobacco Use Types [...] on filedocumented in this encounter Care Teams Education Reporter Relationship Specialty Start Date End Date Haja Donahue MD 4 [place] [address] PCP - General 04/04/20 10/29/20 Carlos Castañeda PA-C [address] [place], [place] PCP - General Internal Medicine 10/30/20 Haja Donahue MD [address] [place] [address] Internal Medicine 04/04/20 Brent Ellis MD [address] [place] [address] Octave Board Racker Cardiovascular Disease 07/16/20 Nicky Miller PA [address] [place] [address] Specialist Cardiology 02/06/21 11/11/23 Mark Acuña MD [address] [place] [address] Specialist Cardiology 07/31/21 Nanette Wyatt PA-C [address] [place] [address] Specialist Cardiology 07/31/21 Sunita Sanchez NP [address] [place] [address] Nurse Practitioner Cardiology 10/20/23 documented as of this encounter
--- OUTSIDE RECORDS SUMMARY | 2025-04-03 07:44 | XMS_ITS | Encounter Summary ---
Author Organization [facility] Address [address] [place] [address] Care Team Providers Care Voice Over Artist Name Role Phone Haja Donahue MD Primary Care Provider + [phone] Haja Donahue MD Unavailable [phone] Brent Ellis MD Unavailable [phone] Carlos Castañeda PA-C Primary Care Provider +[phone] Nicky Miller Unavailable Unavailable Mark Acuña MD Unavailable +[phone] Nanette Wyatt PA-C Unavailable Sunita Sanchez NP Unavailable [phone] Encounter Details Date Type Department Care Team Description 09/17/2020 Hospital Medical Records [address] [place] [address] Dora Ring Social History Tobacco Use Types [...] on filedocumented in this encounter Care Teams Voice Over Artist Relationship Specialty Start Date End Date Haja Donahue MD [address] [place] [address] PCP - General 04/04/20 10/29/20 Carlos Castañeda PA-C [address] [place] [address] PCP - General Internal Medicine 10/30/20 Haja Donahue MD [address] [place] [address] Internal Medicine 04/04/20 Brent Ellis MD [address] [place] [address] Funeral Director And Embalmer Cardiovascular Disease 07/16/20 Nicky Miller PA [address] [place] [address] Specialist Cardiology 02/06/21 11/11/23 Mark Acuña MD [address] [place] [address] Specialist Cardiology 07/31/21 Nanette Wyatt PA-C [address] [facility] [address] [place] [address] Specialist Cardiology 07/31/21 Sunita Sanchez NP [address] [place] [address] Nurse Practitioner Cardiology 10/20/23 documented as of this encounter
--- OUTSIDE RECORDS SUMMARY | 2025-04-03 07:44 | XMS_ITS | Encounter Summary ---
Author Organization [facility] Address [address] [place] [address] Care Team Providers Care Income Tax Analyst Name Role Phone Haja Donahue MD Unavailable [phone] Brent Ellis MD Unavailable [phone] Carlos Castañeda PA-C Primary Care Provider [phone] Nicky Miller Unavailable Unavailable Mark Acuña MD Unavailable [phone] Nanette Wyatt PA-C Unavailable Sunita Sanchez NP Unavailable [phone] Reason for Visit * Reason Onset Date Comments other 04/08/2021 other Encounter Details Date Type Department Care Team Description 04/08/2021 Telephone Cardio [facility] [address] [place] [address] [address] [place] [phone] Brent Ellis MD [address] [place] [address] Dr Jasvir [address] [place], [place] [phone] other (other) Social History Tobacco Use Types [...] EDT Patient is calling to state that [facility] needed to know what hospital she attended in [place], [place]. [facility]. Phone number [phone]. documented in this encounter Plan of Treatment Not on file documented as of this encounter Visit Diagnoses Not on filedocumented in this encounter Care Teams Income Tax Analyst Relationship Specialty Start Date End Date Carlos Castañeda PA-C [address] [place] [address] PCP - General Internal Medicine 10/30/20 Haja Donahue MD [address] [place] [address] Internal Medicine 04/04/20 Brent Ellis MD [address] [place] [address] [place] [address] Fiberglass Fabricator Cardiovascular Disease 07/16/20 Nicky Miller PA [address] [place] [address] Specialist Cardiology 02/06/21 11/11/23 Mark Acuña MD [address] [place] [address] Specialist Cardiology 07/31/21 Nanette Wyatt PA-C [address] [place] [address] Specialist Cardiology 07/31/21 Sunita Snachez NP [address] [place] [address] Nurse Practitioner Cardiology 10/20/23 documented as of this encounter
--- OUTSIDE RECORDS SUMMARY | 2025-04-03 07:44 | XMS_ITS | Encounter Summary ---
Author Organization [facility] Address [address] [place] [address] Care Team Providers Care Hims Clerk Name Role Phone Haja Donahue MD Unavailable Brent Ellis MD Unavailable [phone] Carlos Castañeda PA-C Primary Care Provider [phone] Nicky Miller Unavailable Unavailable Mark Acuña MD Unavailable [phone] Nanette Wyatt PA-C Unavailable Sunita Sanchez NP Unavailable [phone] Encounter Details Date Type Department Care Team Description 03/30/2023 [facility] Medical Records [address] [place] [address] Social History Tobacco Use Types Packs/Day Years [...] Associated Diagnosis Comments OUTSIDE VASCULAR STUDY Routine 03/30/2023 documented in this encounter Results * OUTSIDE VASCULAR STUDY (03/30/2023) Provider Default CARDIOLOGY documented in this encounter Visit Diagnoses Not on filedocumented in this encounter Care Teams Hims Clerk Relationship Specialty Start Date End Date Carlos Castañeda PA-C [address] [place] [address] PCP - General Internal Medicine 10/30/20 Haja Donahue MD [address] [place] [address] Internal Medicine 04/04/20 Brent Ellis MD [address] [place] [address] Perfect Binder Operator Cardiovascular Disease 07/16/20 Nicky Miller PA [address] [place] [address] Specialist Cardiology 02/06/21 11/11/23 Mark Acuña MD [address] [place] [address] Specialist Cardiology 07/31/21 Nanette Wyatt PA-C [address] [email or web address] [address] [place] [address] Specialist Cardiology 07/31/21 Sunita Sanchez NP [address] [place] [address] [address] Nurse Practitioner Cardiology 10/20/23 documented as of this encounter
--- OUTSIDE RECORDS SUMMARY | 2025-04-03 07:45 | XMS_ITS | Encounter Summary ---
Author Organization [facility] Address [address] [place] [address] Care Team Providers Care Tape Sewer Name Role Phone Haja Donahue MD Unavailable [phone] Brent Ellis MD Unavailable +[phone] Carlos Castañeda PA-C Primary Care Provider + [phone] Nicky Miller Unavailable Unavailable Mark Acuña MD Unavailable [phone] Nanette Wyatt PA-C Unavailable Sunita Sanchez NP Unavailable [phone] Encounter Details Date Type Department Care Team Description 05/12/2022 Telephone Adult Medicine [place] [facility] [address] [place] [address] [phone] Carlos Castañeda PA-C [address] [place] [address] [phone] Social History Tobacco Use Types Packs/Day Years [...] on filedocumented in this encounter Care Teams Tape Sewer Relationship Specialty Start Date End Date Carlos Castañeda PA-C [address] [place] [address] PCP - General Internal Medicine 10/30/20 Haja Donahue MD [address] [place] [address] Internal Medicine 04/04/20 Brent Ellis MD [address] [place] [address] Filtering Machine Tender Cardiovascular Disease 07/16/20 Nicky Miller PA [address] [place] [address] Specialist Cardiology 02/06/21 11/11/23 Mark Acuña MD [address] [place] [address] Specialist Cardiology 07/31/21 Nanette Wyatt PA-C [address] [address] Specialist Cardiology 07/31/21 Sunita Sanchez NP [address] [place] [address] Nurse Practitioner Cardiology 10/20/23 documented as of this encounter
--- OUTSIDE RECORDS SUMMARY | 2025-04-03 07:45 | XMS_ITS | Encounter Summary ---
Author Organization [facility] Address [address] [place] [address] Care Team Providers Care Dairy Supplies Sales Representative Name Role Phone Haja Donahue MD Unavailable [phone] Brent Ellis MD Unavailable [phone] Carlos Castañeda PA-C Primary Care Provider [phone] Nicky Miller Unavailable Unavailable Mark Acuña MD Unavailable [phone] Nanette Wyatt PA-C Unavailable Sunita Sanchez NP Unavailable [phone] Reason for Visit * Reason Onset Date Comments other 06/16/2022 Encounter Details Date Type Department Care Team Description 06/16/2022 Telephone Cardio [facility] [address] 2 [facility] [address] [place] [address] Nicky Miller PA other Social History Tobacco [...] on filedocumented in this encounter Care Teams Dairy Supplies Sales Representative Relationship Specialty Start Date End Date Carlos Castañeda PA-C [address] [place] [address] PCP - General Internal Medicine 10/30/20 Haja Donahue MD [address] [place] [address] Internal Medicine 04/04/20 Brent Ellis MD [address] [place] [address] Sap Pp Consultant Cardiovascular Disease 07/16/20 Nicky Miller PA [address] [place] [address] Specialist Cardiology 02/06/21 11/11/23 Mark Acuña MD [address] [address] Specialist Cardiology 07/31/21 Nanette Wyatt PA-C [address] [address] Specialist Cardiology 07/31/21 Sunita Sanchez NP [address] [place] [address] Nurse Practitioner Cardiology 10/20/23 documented as of this encounter
--- OUTSIDE RECORDS SUMMARY | 2025-04-03 07:45 | XMS_ITS | Encounter Summary ---
Author Organization [facility] Address [address] [place] [address] Care Team Providers Care Millinery Copyist Name Role Phone Haja Donahue MD Unavailable [phone] Brent Ellis MD Unavailable [phone] Carlos Castañeda PA-C Primary Care Provider [phone] Nicky Miller Unavailable Unavailable Mark Acuña MD Unavailable [phone] Nanette Wyatt PA-C Unavailable Sunita Sanchez NP Unavailable [phone] Encounter Details Date Type Department Care Team Description 07/23/2021 [facility] Medical Records [address] [place] [address] Abstract, Provider Social History Tobacco Use Types [...] Date/Time Associated Diagnosis Comments OUTSIDE LAB Routine 07/23/2021 documented in this encounter Results * OUTSIDE LAB (07/23/2021) Provider Default LAB documented in this encounter Visit Diagnoses Not on filedocumented in this encounter Care Teams Millinery Copyist Relationship Specialty Start Date End Date Carlos Castañeda PA-C [address] [place] [address] PCP - General Internal Medicine 10/30/20 Haja Donahue MD [address] [place] [address] Internal Medicine 04/04/20 Brent Ellis MD [address] [place] [address] Roll Off Driver Cardiovascular Disease 07/16/20 Nicky Miller PA [address] [place] [address] Specialist Cardiology 02/06/21 11/11/23 Mark Acuña MD [address] [place] [address] Specialist Cardiology 07/31/21 Nanette Wyatt PA-C [address] [place] [address] Specialist Cardiology 07/31/21 Sunita Sanchez NP [address] [place] [address] Nurse Practitioner Cardiology 10/20/23 documented as of this encounter
--- OUTSIDE RECORDS SUMMARY | 2025-04-03 07:45 | XMS_ITS | Encounter Summary ---
Author Organization [facility] Address [address] [place] [address] Care Team Providers Care Varnish Filterer Name Role Phone Haja Donahue MD Primary Care Provider + [phone] Haja Donahue MD Unavailable [phone] Brent Ellis MD Unavailable [phone] Carlos Castañeda PA-C Primary Care Provider [phone] Nicky Miller Unavailable Unavailable Mark Acuña MD Unavailable [phone] Nanette Wyatt PA-C Unavailable Sunita Sanchez NP Unavailable [phone] Encounter Details Date Type Department Care Team Description 06/25/2020 Orders Only Adult Medicine B - [place] [address] [place] [address] Haja Donahue MD [address] [place] [address] Abnormal mammogram of both breasts Social History Tobacco Use Types Packs/Day Years [...] AM EST documented as of this encounter Plan of Treatment Not on file documented as of this encounter Procedures Procedure Name Priority Date/Time Associated Diagnosis Comments DX MAMMO INCL CAD BI Routine 05/27/2020 Abnormal mammogram of both breasts documented in this encounter Results * DX MAMMO INCL CAD BI (05/27/2020) Haja Donahue MD MAMMOGRAPHY documented in this encounter Visit Diagnoses Diagnosis Abnormal mammogram of both breasts documented in this encounter Care Teams Varnish Filterer Relationship Specialty Start Date End Date Haja Donahue MD [address] [place] [address] PCP - General 04/04/20 10/29/20 Carlos Castañeda PA-C [address] [place] [address] PCP - General Internal Medicine 10/30/20 Haja Donahue MD [address] [place] [address] Internal Medicine 04/04/20 Brent Ellis MD [address] [place] [address] Dr Tay [address] [place] [address] Batch Trucker Cardiovascular Disease 07/16/20 Nicky Miller PA [address] [place] [address] Specialist Cardiology 02/06/21 11/11/23 Mark Acuña MD [address] [place] [address] Specialist Cardiology 07/31/21 Nanette Wyatt PA-C [address] [place] [address] Specialist Cardiology 07/31/21 Sunita Sanchez NP [address] [place] [address] Nurse Practitioner Cardiology 10/20/23 documented as of this encounter
--- OUTSIDE RECORDS SUMMARY | 2025-04-03 07:45 | XMS_ITS | Encounter Summary ---
Author Organization [facility] Address [address] [place] [address] Care Team Providers Care Fireboat Operator Name Role Phone Minh Ferrell MD Primary Care Provider Un available Haja Donahue MD Primary Care Provider + [phone] Haja Donahue MD Primary Care Provider + [phone] Haja Donahue MD Unavailable [phone] Brent Ellis MD Unavailable [phone] Carlos Castañeda PA-C Primary Care Provider [phone] Nicky Miller Unavailable Unavailable Mark Acuña MD Unavailable [phone] Nanette Wyatt PA-C Unavailable Sunita Sanchez NP Unavailable [phone] Encounter Details Date Type Department Care Team Description 10/14/2016 [facility] Only Adult Medicine [address] [address] Minh Ferrell MD Encounter for screening mammogram [...] mammogram documented in this encounter Care Teams Fireboat Operator Relationship Specialty Start Date End Date Minh Ferrell MD PCP - General Internal Medicine 08/30/15 01/29/19 Haja Donahue MD [address] [place] [address] PCP - General Internal Medicine 01/30/19 04/03/20 Haja Donahue MD [address] [place] [address] PCP - General 04/04/20 10/29/20 Carlos Castañeda PA-C [address] [place] [address] PCP - General Internal Medicine 10/30/20 Haja Donahue MD [address] [place] [address] Internal Medicine 04/04/20 Brent Ellis MD [address] [place] [address] [place] [address] Oral Pathologist Cardiovascular Disease 07/16/20 Nicky Miller PA [address] [place] [address] Specialist Cardiology 02/06/21 11/11/23 Mark Acuña MD [address] [place] [address] Specialist Cardiology 07/31/21 Nanette Wyatt PA-C [address] [place] [address] Specialist Cardiology 07/31/21 Sunita Sanchez NP [address] [place] [address] Nurse Practitioner Cardiology 10/20/23 documented as of this encounter
--- OUTSIDE RECORDS SUMMARY | 2025-04-03 07:45 | XMS_ITS | Encounter Summary ---
Author Organization [facility] Address [address] [place] [address] Care Team Providers Care Plane Runner Name Role Phone Haja Donahue MD Primary Care Provider + [phone] Haja Donahue MD Primary Care Provider + [phone] Haja Donahue MD Unavailable [phone] Brent Ellis MD Unavailable [phone] Carlos Castañeda PA-C Primary Care Provider +[phone] Nicky Miller Unavailable Unavailable Mark Acuña MD Unavailable [phone] Nanette Wyatt PA-C Unavailable Sunita Sanchez NP Unavailable [phone] Encounter Details Date Type Department Care Team Description 02/07/2020 [facility] Medical Records [address] [place] [address] Abstract, Provider Social History Tobacco Use Types [...] on filedocumented in this encounter Care Teams Plane Runner Relationship Specialty Start Date End Date Haja Donahue MD [address] [place] [address] PCP - General Internal Medicine 01/30/19 04/03/20 Haja Donahue MD [address] [place] [address] PCP - General 04/04/20 10/29/20 Carlos Castañeda PA-C [address] [place] [address] PCP - General Internal Medicine 10/30/20 Haja Donahue MD [address] [place] [address] Internal Medicine 04/04/20 Brent Ellis MD [address] [place] [address] Automotive Collision Repair Instructor Cardiovascular Disease 07/16/20 Nicky Miller PA [address] [place] [address] Specialist Cardiology 02/06/21 11/11/23 Mark Acuña MD [address] [address] Specialist Cardiology 07/31/21 Nanette Wyatt PA-C [address] [address] Specialist Cardiology 07/31/21 Sunita Sanchez NP [address] [place] [address] Nurse Practitioner Cardiology 10/20/23 documented as of this encounter
--- OUTSIDE RECORDS SUMMARY | 2025-04-03 07:45 | XMS_ITS | Encounter Summary ---
Author Organization [facility] Address [address] [place] [address] Care Team Providers Care Vacuum Pan Tender Name Role Phone Haja Donahue MD Unavailable [phone] Brent Ellis MD Unavailable [phone] Carlos Castañeda PA-C Primary Care Provider [phone] Nicky Miller Unavailable Unavailable Mark Acuña MD Unavailable [phone] Nanette Wyatt PA-C Unavailable Sunita Sanchez NP Unavailable [phone] Encounter Details Date Type Department Care Team Description 12/11/2021 [facility] Medical Records [address] [place] [address] Social History Tobacco Use Types Packs/Day Years [...] on filedocumented in this encounter Care Teams Vacuum Pan Tender Relationship Specialty Start Date End Date Carlos Castañeda PA-C [address] [place] [address] PCP - General Internal Medicine 10/30/20 Haja Donahue MD 444 [place] [address] Internal Medicine 04/04/20 Brent Ellis MD [address] [place] [address] General Teller Cardiovascular Disease 07/16/20 Nicky [place] PA [address] [place] [address] Specialist Cardiology 02/06/21 11/11/23 Mark Acuña MD [address] [place] [address] Specialist Cardiology 07/31/21 Nanette Wyatt PA-C [address] [facility] [address] [place] [address] Specialist Cardiology 07/31/21 Sunita Sanchez NP [address] [place] [address] Nurse Practitioner Cardiology 10/20/23 documented as of this encounter
--- OUTSIDE RECORDS SUMMARY | 2025-04-03 07:45 | XMS_ITS | Encounter Summary ---
Author Organization [facility] Address [address] [place] [address] Care Team Providers Care Assistant Program Manager Name Role Phone Haja Donahue MD Unavailable [phone] Brent Ellis MD Unavailable [phone] Carlos Castañeda PA-C Primary Care Provider [phone] Nicky Miller Unavailable Unavailable Mark Acuña MD Unavailable [phone] Nanette Wyatt PA-C Unavailable Sunita Sanchez NP Unavailable [phone] Encounter Details Date Type Department Care Team Description 05/06/2023 Orders Only Medical Records [address] [place] [address] Janette Little PA-C Social History Tobacco Use [...] Results * OUTSIDE IMAGING (04/30/2023) Janette Fabiana nAabel [facility] * OUTSIDE CT (04/29/2023) Alberta Omar [facility] documented in this encounter Visit Diagnoses Not on filedocumented in this encounter Care Teams Assistant Program Manager Relationship Specialty Start Date End Date Carlos Castañeda PA-C [address] [place] [address] PCP - General Internal Medicine 10/30/20 Haja Donahue MD [address] [place] [address] Internal Medicine 04/04/20 Brent Ellis MD [address] [place] [address] Rapid Transit Operator Cardiovascular Disease 07/16/20 Nicky [place] PA [address] [place] [address] Specialist Cardiology 02/06/21 11/11/23 Mark Acuña MD [address] [place] [address] Specialist Cardiology 07/31/21 Nanette Wyatt PA-C [address] [place] [address] Specialist Cardiology 07/31/21 Sunita Sanchez NP [address] [place] [address] Nurse Practitioner Cardiology 10/20/23 documented as of this encounter
--- OUTSIDE RECORDS SUMMARY | 2025-04-03 07:45 | XMS_ITS | Encounter Summary ---
Author Organization [facility] Address [address] [place] [address] Care Team Providers Care Job Boss Name Role Phone Haja Donahue MD Unavailable [phone] Brent Ellis MD Unavailable [phone] Carlos Castañeda PA-C Primary Care Provider [phone] Nicky [place] Unavailable Unavailable Mark Acuña MD Unavailable [phone] Nanette Wyatt PA-C Unavailable Sunita Sanchez NP Unavailable [phone] Encounter Details Date Type Department Care Team Description 12/[facility] [address] [place] [address] Social History Tobacco Use Types Packs/Day Years [...] on filedocumented in this encounter Care Teams Job Boss Relationship Specialty Start Date End Date Carlos Castañeda PA-C [address] [place] [address] PCP - General Internal Medicine 10/30/20 Haja Donahue MD [address] [place] [address] Internal Medicine 04/04/20 Brent Ellis MD [address] [place] [address] Suction Plate Roller Hand Cardiovascular Disease 07/16/20 Nicky [place] PA [address] [place] [address] Specialist Cardiology 02/06/21 11/11/23 Mark Acuña MD [address] [place] [address] Specialist Cardiology 07/31/21 Nanette Wyatt PA-C [address] [place] [address] Specialist Cardiology 07/31/21 Sunita Sanchez NP [address] [place] [address] Nurse Practitioner Cardiology 10/20/23 documented as of this encounter
--- OUTSIDE RECORDS SUMMARY | 2025-04-03 07:45 | XMS_ITS | Encounter Summary ---
Author Organization [facility] Address [address] [place] [address] Care Team Providers Care Wind Operations Supervisor Name Role Phone Haja Donahue MD Unavailable [phone] Brent Ellis MD Unavailable [phone] Carlos Castañeda PA-C Primary Care Provider [phone] Mark Acuña MD Unavailable [phone] Nanette Wyatt PA-C Unavailable Sunita Sanchez NP Unavailable [phone] Encounter Details Date Type Department Care Team Description 11/23/2023 [facility] Medical Records [address] [place], [place] [address] [place] [address] Social History Tobacco Use Types Packs/Day Years [...] filedocumented in this encounter Care Teams Wind Operations Supervisor Relationship Specialty Start Date End Date Carlos Castañeda PA-C [address] [place] [address] PCP - General Internal Medicine 10/30/20 Haja Donahue MD [address] [place] [address] Internal Medicine 04/04/20 Brent Ellis MD [address] [place] [address] Cabinet Maker Cardiovascular Disease 07/16/20 Mark Acuña MD [address] [address] Specialist Cardiology 07/31/21 Nanette Wyatt PA-C [facility] [address] [place] [address] Specialist Cardiology 07/31/21 Sunita Sanchez NP [address] [place] [address] Nurse Practitioner Cardiology 10/20/23 documented as of this encounter
--- OUTSIDE RECORDS SUMMARY | 2025-04-03 07:45 | XMS_ITS | Encounter Summary ---
Author Organization [facility] Address [address] [place] [address] Care Team Providers Care Stabber Name Role Phone Haja Donahue MD Unavailable [phone] Brent Ellis MD Unavailable [phone] Carlos Castañeda PA-C Primary Care Provider [phone] Nicky Miller Unavailable Unavailable Mark Acuña MD Unavailable [phone] Nanette Wyatt PA-C Unavailable Sunita Sanchez NP Unavailable Reason for Visit * Reason Onset Date Comments other 09/06/2023 Encounter Details Date Type Department Care Team Description 09/06/2023 Telephone Cardio PVC [facility] [address] [place] [id number] Sunita Sanchez NP [address] [facility] [address] [place] [address] other Social History Tobacco Use Types Packs/Day [...] on filedocumented in this encounter Care Teams Stabber Relationship Specialty Start Date End Date Carlos Castañeda PA-C [address] [place] [address] PCP - General Internal Medicine 10/30/20 Haja Donahue MD [address] [place] [address] Internal Medicine 04/04/20 Brent Ellis MD [address] [place] [address] Real Estate Branch Manager Cardiovascular Disease 07/16/20 Nicky Miller PA [address] [place] [address] Specialist Cardiology 02/06/21 11/11/23 Mark Acuña MD [address] [address] Specialist Cardiology 07/31/21 Nanette Wyatt PA-C [address] [address] Specialist Cardiology 07/31/21 Sunita Sanchez NP [address] [place] [address] Nurse Practitioner Cardiology 10/20/23 documented as of this encounter
--- OUTSIDE RECORDS SUMMARY | 2025-04-03 07:45 | XMS_ITS | Encounter Summary ---
Author Organization [facility] Address [address] [place] [address] Care Team Providers Care Spray Operator Name Role Phone Haja Donahue MD Unavailable [phone] Brent Ellis MD Unavailable [phone] Carlos Castañeda PA-C Primary Care Provider [phone] Nicky Miller Unavailable Unavailable Mark Acuña MD Unavailable [phone] Nanette Wyatt PA-C Unavailable Sunita Sanchez NP Unavailable [phone] Reason for Visit * Reason Onset Date Comments Reschedule 02/06/2022 Encounter Details Date Type Department Care Team Description 02/06/2022 Telephone Cardio [facility] [address] [place] [phone] Nicky Miller PA Reschedule Social History Tobacco Use Types Packs/Day Years [...] encounter Miscellaneous Notes * Telephone Encounter - NAndreas Tres - 02/06/2022 3:22 PM EDT Appointment with Dr. Ellis was canceled on 02/05/22. Left message to reschedule the appointment for 02/13/22 with Nicky Miller. Slots held. documented in this encounter Plan of Treatment Not on file documented as of this encounter Visit Diagnoses Not on filedocumented in this encounter Care Teams Spray Operator Relationship Specialty Start Date End Date Carlos Castañeda PA-C [address] [place] [address] PCP - General Internal Medicine 10/30/20 Haja Donahue MD [address] [place] [address] Internal Medicine 04/04/20 Brent Ellis MD [address] [place] [address] Art Educator Cardiovascular Disease 07/16/20 Nicky Miller PA [address] [place] [address] Specialist Cardiology 02/06/21 11/11/23 Mark Acuña MD [address] [place] [address] Specialist Cardiology 07/31/21 Nanette Wyatt PA-C [address] [place] [address] Specialist Cardiology 07/31/21 Sunita Sanchez NP [address] [place] [address] Nurse Practitioner Cardiology 10/20/23 documented as of this encounter
--- OUTSIDE RECORDS SUMMARY | 2025-04-03 07:45 | XMS_ITS | Encounter Summary ---
Author Organization [facility] Address [address] [place] [address] Care Team Providers Care Real Estate Branch Manager Name Role Phone Haja Donahue MD Primary Care Provider + [phone] Haja Donahue MD Primary Care Provider + [phone] Haja Donahue MD Unavailable [phone] Brent Ellis MD Unavailable [phone] Carlos Castañeda PA-C Primary Care Provider [phone] Nicky Miller Unavailable Unavailable Mark Acuña MD Unavailable [phone] Nanette Wyatt PA-C Unavailable Sunita Sanchez NP Unavailable [phone] Encounter Details Date Type Department Care Team Description 02/01/2020 Orders Only Adult Medicine [address] [phone] Haja Donahue MD [address] [place] [address] [phone] Abnormal breast finding; Encounter for screening mammogram [...] mammogram documented in this encounter Care Teams Real Estate Branch Manager Relationship Specialty Start Date End Date Haja Donahue MD [address] [place] [address] PCP - General Internal Medicine 01/30/19 04/03/20 Haja Donahue MD [address] [place] [address] PCP - General 04/04/20 10/29/20 Carlos Castañeda PA-C [address] [place] [address] PCP - General Internal Medicine 10/30/20 Haja Donahue MD [address] [place] [address] Internal Medicine 04/04/20 Brent Ellis MD [address] [place] [address] [place] [address] Cartography Teacher Cardiovascular Disease 07/16/20 Nicky Miller PA [address] [place] [address] Specialist Cardiology 02/06/21 11/11/23 Mark Acuña MD [address] [place] [address] Specialist Cardiology 07/31/21 Nanette Wyatt PA-C [address] [place] [address] Specialist Cardiology 07/31/21 Sunita Sanchez NP [address] [place] [address] Nurse Practitioner Cardiology 10/20/23 documented as of this encounter
--- OUTSIDE RECORDS SUMMARY | 2025-04-03 07:45 | XMS_ITS | Encounter Summary ---
Author Organization [facility] Address [address] [place] [address] Care Team Providers Care Flea Market Seller Name Role Phone Haja Donahue MD Unavailable [phone] Brent Ellis MD Unavailable [phone] Carlos Castañeda PA-C Primary Care Provider [phone] Nicky Miller Unavailable Unavailable Mark Acuña MD Unavailable Nanette Wyatt PA-C Unavailable Sunita Sanchez NP Unavailable [phone] Encounter Details Date Type Department Care Team Description 10/29/2021 Hospital Medical Records [address] [place] [address] Social History Tobacco Use Types Packs/Day Years [...] on filedocumented in this encounter Care Teams Flea Market Seller Relationship Specialty Start Date End Date Carlos Castañeda PA-C [address] [place] [address] PCP - General Internal Medicine 10/30/20 Haja Donahue MD [address] [place] [address] Internal Medicine 04/04/20 Brent Ellis MD [address] [place] [address] Saw Sharpener Cardiovascular Disease 07/16/20 Nicky Miller PA [address] [place] [address] Specialist Cardiology 02/06/21 11/11/23 Mark Acuña MD [address] [address] Specialist Cardiology 07/31/21 Nanette Wyatt PA-C [address] [address] Specialist Cardiology 07/31/21 Sunita Sanchez NP [address] [place] [address] Nurse Practitioner Cardiology 10/20/23 documented as of this encounter
--- OUTSIDE RECORDS SUMMARY | 2025-04-03 07:45 | XMS_ITS | Encounter Summary ---
Author Organization [facility] Address [address] [place] [address] Care Team Providers Care Custom Protection Officer Name Role Phone Minh Ferrell MD Primary Care Provider Un available Haja Donahue MD Primary Care Provider + [phone] Haja Donahue MD Primary Care Provider + [phone] Haja Donahue MD Unavailable [phone] Brent Ellis MD Unavailable [phone] Carlos Castañeda PA-C Primary Care Provider [phone] Nicky Miller Unavailable Unavailable Mark Acuña MD Unavailable Nanette Wyatt PA-C Unavailable Sunita Sanchez NP Unavailable [phone] Encounter Details Date Type Department Care Team Description 08/19/2016 Business Doc Medical Records [address] [place] [address] Abstract, Provider Social History Tobacco Use Types [...] on filedocumented in this encounter Care Teams Custom Protection Officer Relationship Specialty Start Date End Date Minh Ferrell MD PCP - General Internal Medicine 08/30/15 01/29/19 Haja Donahue MD [address] [place] [address] PCP - General Internal Medicine 01/30/19 04/03/20 Haja Donahue MD [address] [place] [address] PCP - General 04/04/20 10/29/20 Carlos Castañeda PA-C [address] [place] [address] PCP - General Internal Medicine 10/30/20 Haja Donahue MD [address] [place] [address] Internal Medicine 04/04/20 Brent Ellis MD [address] [place] [address] Drilling Machine Operator Cardiovascular Disease 07/16/20 Nicky Miller PA [address] [place] [address] Specialist Cardiology 02/06/21 11/11/23 Mark Acuña MD [address] [address] Specialist Cardiology 07/31/21 Nanette Wyatt PA-C [address] [address] Specialist Cardiology 07/31/21 Sunita Sanchez NP [address] [place] [address] Nurse Practitioner Cardiology 10/20/23 documented as of this encounter
--- OUTSIDE RECORDS SUMMARY | 2025-04-03 07:45 | XMS_ITS | Encounter Summary ---
Author Organization [facility] Address [address] [place] [address] Care Team Providers Care Gameroom Technician Name Role Phone Haja Donahue MD Unavailable [phone] Brent Ellis MD Unavailable [phone] Carlos Castañeda PA-C Primary Care Provider [phone] Nicky Miller Unavailable Unavailable Mark Acuña MD Unavailable [phone] Nanette Wyatt PA-C Unavailable Sunita Sanchez NP Unavailable [phone] Encounter Details Date Type Department Care Team Description 11/01/2021 [facility] Medical Records [address] [place] [address] [place] [address] Social History Tobacco Use Types Packs/Day Years [...] on filedocumented in this encounter Care Teams Gameroom Technician Relationship Specialty Start Date End Date Carlos Castañeda PA-C [address] [place] [address] PCP - General Internal Medicine 10/30/20 Haja Donahue MD [address] [place] [address] Internal Medicine 04/04/20 Brent Ellis MD [address] [place] [address] [place] [address] Dye Colorist Dyer Cardiovascular Disease 07/16/20 Nicky Miller PA [address] [place] [address] Specialist Cardiology 02/06/21 11/11/23 Mark Acuña MD [address] [address] Specialist Cardiology 07/31/21 Nanette Wyatt PA-C [address] [address] Specialist Cardiology 07/31/21 Sunita Sanchez, LASHANDA [address] [place] [address] Nurse Practitioner Cardiology 10/20/23 documented as of this encounter
--- OUTSIDE RECORDS SUMMARY | 2025-04-03 07:45 | XMS_ITS | Clinical Summary ---
Author Organization [facility] Address [address] [place] [phone] Phone Care Team Providers Care Photo Mask Pattern Generator Name Role Phone Carlos Castañeda Primary Care Provider [phone] Allergies Active Allergy Reactions Criticality Noted Date [...] moderate pain or severe pain. 4 Active meclizine (ANTIVERT) 25 mg tablet Take 1 Tablet by mouth 3 times daily as needed (vertigo). 30 tablet 5 5 Active albuterol HFA (ProAir HFA) 90 [...] 12 hours. 30 each 11 5 Active oxyBUTYnin XL (DITROPAN-XL) 5 mg 24 hr tablet Take 1 tablet (5 mg total) by mouth 1 (one) time each day. Do not crush, chew, or split. 30 each 5 5 Active aspirin 81 mg EC tablet TAKE 1 TABLET BY MOUTH 1 TIME EACH DAY. 90 tablet 1 5 Active metoprolol succinate (TOPROL-XL) 100 mg 24 hr tablet TAKE 1 TABLET BY MOUTH 1 TIME EACH DAY. DO NOT CRUSH OR CHEW. 90 tablet 1 5 Active levothyroxine (SYNTHROID, LEVOTHROID) 75 mcg tablet TAKE 1 TABLET (75 MCG TOTAL) BY MOUTH ONE TIME EACH DAY. 90 tablet 1 5 Active rOPINIRole (REQUIP) 0.25 mg tablet TAKE 1 TABLET BY MOUTH 2 TIMES A DAY. 180 tablet 5 Active atorvastatin (LIPITOR) 20 mg tablet TAKE 1 TABLET (20 MG TOTAL) BY MOUTH ONE TIME EACH DAY 90 tablet 5 Active spironolactone (ALDACTONE) 50 mg tablet TAKE 1 TABLET BY MOUTH EVERY DAY 90 tablet 5 Active omeprazole (PriLOSEC) [address] capsule TAKE 1 CAPSULE BY MOUTH EVERY DAY . DO NOT CRUSH OR CHEW. 90 capsule 1 5 Active zonisamide (ZONEGRAN) 100 mg capsule TAKE 1 CAPSULE BY MOUTH 2 TIMES DAILY NEEDED (NAUSEA). 180 capsule 1 5 Active cyclobenzaprine (FLEXERIL) 10 mg tablet Take 1 tablet (10 mg total) by mouth 2 (two) times a day if needed for muscle spasms. 30 tablet 5 5 Active amLODIPine (NORVASC) 10 mg tablet TAKE 1 TABLET BY MOUTH 1 TIME EACH DAY. 90 tablet 1 5 Active ondansetron (ZOFRAN) 4 mg tablet Take 1 tablet (4 mg total) by mouth every 8 (eight) hours if needed for nausea. 21 tablet 2 5 Active ondansetron (ZOFRAN) 4 mg tablet Take 1 tablet (4 mg total) by mouth every 8 (eight) hours if needed for nausea. 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 She has a Funambol ILR that was placed in July 2021 [...] a different antihypertensive. LOC (loss of consciousness) (CMS/[facility] V24, CMS/HC C V28) 05/07/2020 Overview (03/09/2024): [...] kidney disease) stage 3, GFR 30-59 ml/min ([facility] V24, [facility] V28) 08/24/2018 Osteoarthritis 09/08/2016 Glaucoma 08/14/2016 Osteopenia 11/06/2015 Immunizations Immunization Administration Dates Next Due Influenza Quadravalent, 0.5m l (Fluad) 65yo and older 03/16/2023 Influenza Quadravalent, MDCK , 0.5ml, preservative free (Flucelvax) 6mo and older 07/20/2022,02/12/2021,05/05/2018 Influenza trivalent, 0.5mL ( Fluad) 65yo and older 03/19/2025 Influenza trivalent, 0.5mL ( Fluzone High-dose) 65yo and older 03/11/2024 Influenza trivalent, 0.5mL, preservative free (Fluarix; FluLaval; Fluzone) ages 6mo and older (Afluria) 3 years and older 03/04/2015 Influenza trivalent, with preservative (Fluzone; Afluria) 6mo and older 01/22/2020,02/13/2017,05/13/2016 Influenza, Unspecified 01/22/2020,02/12/2019 Offerum SARS-CoV-2 COVID-19, mRNA, LNP-S, preservative free 06/02/2022,04/30/2021,10/26/2020,2020 Pneumococcal conjugate 20 va lent (Prevnar 20, PCV 20) 2mo and older 06/15/2024,07/20/2022 RSV, bivalent, protein subun it RSVpreF, 0.5mL, Preservative Free (ABRYSVO) 50yo and older or 32 through 36 wks [...] REPAIR FEMUR FRACTURE SURGERY 2004 Right PROCEDURE: DC OPEN TX FEMORAL FRACTURE DISTAL MED/LAT CONDYLE [...] kidney disease) stage 3, GFR 30-59 ml/min ([facility] V24, [facility]/HCC V28) 08/24/2018 DX:CKD (chronic kidney disea se) stage 3, GFR 30-59 ml/min ([facility]) Dyspnea 09/06/2023 DX:Dyspnea Family History Medical History [...] Sign Reading Time Taken Comments Blood Pressure 138/70 12/21/2024 9:47 AM EDT Pulse 69 12/21/2024 9:47 AM EDT Temperature 36.7 C (98 F) 12/11/2024 9:19 AM EDT Respiratory Rate 16 12/11/2024 9:19 AM EDT Oxygen Saturation 98% 12/21/2024 9:47 AM EDT Inhaled Oxygen Concentration - - Weight 94.8 kg (209 lb) 12/21/2024 9:47 AM EDT Height 162.6 cm (5' 4 ) 12/21/2024 9:47 AM EDT Body Mass Index 35.87 12/21/2024 9:47 AM EDT Plan of Treatment Upcoming Encounters Date Type Department Care Team (Late st Contact Info) Description 06/12/2025 3:15 PM EST Appointment Bone Density Ricki [address] [place] [address] 06/13/2025 10:30 AM EST Office Visit [facility] [address] [place] [address] Carlos Castañeda PA [facility] [place] [phone] Health Maintenance Due Date Last Done Comments Colorectal Cancer Screening: Stool Based Tests (FOBT/FIT) 05/16/2022 Osteoporosis Screening (Bone Density Screening) 05/16/2022 Social Influencers of Health Screening 05/16/2022 Depression Screening 06/07/2024 10/18/2023 Falls Risk Assessment 10/17/2024 10/18/2023 Hypertension/CHF/CAD Annual BMP Blood Test 12/11/2025 12/11/2024, 06/29/2024, 10/20/2022 Breast Cancer Screening 11/16/2026 11/16/2024 DTaP,Tdap,and Td Vaccines (4 - Td or Tdap) 11/27/2029 11/28/2019, 08/14/2016, 09/27/2008 Cholesterol Screening (Lipid Panel) 12/11/2029 12/11/2024, 06/29/2024, 10/27/2023, Additional history exists Medicare Annual Wellness Visit Discontinued 10/18/2023 RSV Immunization Adult Patients Completed 04/25/2024 Zoster Vaccines Completed 04/25/2024, 03/07, 04/26/2017 Pneumococcal Vaccine: 50+ Years Completed 06/15/2024, 07/20/2022 Hepatitis C Screening Completed 07/18/2024, 017 COVID-19 Vaccine Completed 03/19/2025, , 03/11/2024, Additional history exists Influenza Vaccine Completed 03/19/2025, , 03/16/2023, Additional history exists HIB Vaccines Aged [...] this topic Medical Devices Implanted Type Area Icing Mixer Device Identifier Shelf Expiration Date Model / Serial / Lot Bsci-Crm [id number] Implanted:07/08 (Quantity not on file) Cardiac Loop Recorder [employer] SCI CARD RHYTHM MGMT [id number] / [id number] / Procedures Procedure Name Priority Date/Time Associated Diagnosis Comments COMPREHENSIVE METABOLIC PANEL Routine 12/11/2024 10:00 AM EDT Pure hypercholesterolemia LIPID PANEL WITH REFLEX TO DIRECT LDL Routine 12/11/2024 10:00 AM EDT Pure hypercholesterolemia EXTERNAL MAMMOGRAM REPORT 11/16/2024 HEPATITIS PANEL, ACUTE WITH REFLEX TO CONFIRMATION Routine 07/18/2024 10:20 AM EST Elevated LFTs DEPRESSION SCREENING Routine 10/18/2023 FALLS RISK ASSESSMENT Routine 10/18/2023 from Last 3 Months or Most Recently Relevant to Health Maintenance Results * Lipid panel with reflex to direct LDL (12/11/2024 10:00 AM EDT) Cholesterol 171 0 - 200 mg/dL LAB CHEMISTRY METHOD 12/11/2024 1:23 PM EDT [facility] Triglycerides 96 0 - 150 mg/dL LAB CHEMISTRY METHOD 12/11/2024 1:23 PM EDT [facility] HDL 56 >=40 mg/dL LAB CHEMISTRY METHOD 12/11/2024 1:23 PM EDT [facility] LDL Calculated 96 0 - 100 mg/dL LAB CHEMISTRY METHOD 12/11/2024 1:23 PM EDT [facility] VLDL Cholesterol Robert 19.2 mg/dL LAB CHEMISTRY METHOD 12/11/2024 1:23 PM EDT [facility] Non HDL Chol. (LDL+VLDL) 115 <145 mg/dL LAB CHEMISTRY METHOD 12/11/2024 1:23 PM T [facility] Chol/HDL Ratio 3.1 0.0 - 4.4 LAB CHEMISTRY METHOD 12/11/2024 1:[address] [facility] Blood Venous blood specimen / Unknown Venipuncture / Unknown 12/11/2024 10:00 AM EDT 12/11/2024 10:00 AM EDT us Rochelle Charly [facility] LAB BLOOD ORDERABLES Final Resul t [facility] [address] [place] [address], [place] [phone] * (ABNORMAL) Comprehensive metabolic panel (12/11/2024 10:00 AM EDT) Sodium 140 133 - 145 mmol/L LAB CHEMISTRY METHOD 12/11/2024 1:[address] [facility] Potassium 4.4 3.5 - 5.5 mmol/L LAB CHEMISTRY METHOD 12/11/2024 1:[address] [facility] Chloride 110 96 - 110 mmol/L LAB CHEMISTRY METHOD 12/11/2024 1:[address] [facility] CO2 24 21 - 32 mmol/L LAB CHEMISTRY METHOD 12/11/2024 1:[address] [facility] Anion Gap 6 3 - 11 LAB CHEMISTRY METHOD 12/11/2024 1:[address] [facility] Glucose 102(H) 70 - 100 mg/dL LAB CHEMISTRY METHOD 12/11/2024 1:[address] [facility] BUN 21 5 - 25 mg/dL LAB CHEMISTRY METHOD 12/11/2024 1:[address] [facility] Creatinine 1.38(H) 0.50 - 1.10 mg/dL LAB CHEMISTRY METHOD 12/11/2024 1:[address] [facility] eGFR 42(L) >=60 mL/min/1. 73m2 LAB CHEMISTRY METHOD 12/11/2024 1:[address] [facility] Comment:Calculation based on the Chronic Kidney Disease Epidemiology Collaboration (CKD-EPI) equation refit without adjustment for race. BUN/Creatinine Ratio 15.2 LAB CHEMISTRY METHOD 12/11/2024 1:[address] [facility] Calcium 9.1 8.5 - 10.5 mg/dL LAB CHEMISTRY METHOD 12/11/2024 1:[address] [facility] AST (SGOT) 14 10 - 42 unit/L LAB CHEMISTRY METHOD 12/11/2024 1:[address] [facility] ALT (SGPT) 22 10 - 60 unit/L LAB CHEMISTRY METHOD 12/11/2024 1:[address] [facility] Alkaline Phosphatase 159(H) 42 - 121 unit/L LAB CHEMISTRY METHOD 12/11/2024 1:[address] [facility] Total Protein 6.8 6.0 - 8.0 g/dL LAB CHEMISTRY METHOD 12/11/2024 1:[address] [facility] Albumin 3.6 3.2 - 5.0 g/dL LAB CHEMISTRY METHOD 12/11/2024 1:[address] [facility] Total Bilirubin 0.6 0.0 - 1.4 mg/dL LAB CHEMISTRY METHOD 12/11/2024 1:[address] [facility] Blood Venous blood specimen / Unknown Venipuncture / Unknown 12/11/2024 10:00 AM EDT 12/11/2024 10:00 AM EDT us Rochelle Charly [facility] BLOOD ORDERABLES Final Resul t [facility] [address] [place] [address], [place] [phone] * External Mammogram Report (11/16/2024) Anatomical Region Laterality Modality Mammography Provider Inocente Onbase IMG BI PROCEDURES Final Result * Hepatitis panel, acute with reflex to confirmation (07/18/2024 10:20 AM EST) Hepatitis B Surface Ag Negative Negative LAB CHEMISTRY METHOD 07/18/2024 1:45 PM EST [facility] Hepatitis A Antibody IgM Negative Negative LAB CHEMISTRY METHOD 07/18/2024 1:45 PM EST [facility] Hep B Core IgM Negative Negative LAB CHEMISTRY METHOD 07/18/2024 1:45 PM EST [facility] Hepatitis C Antibody Negative Negative LAB CHEMISTRY METHOD 07/18/2024 1:45 PM EST [facility] Blood Venous blood specimen / Unknown Venipuncture / Unknown 07/18/2024 10:20 AM EST 07/18/2024 10:20 AM EST Rochelle [facility] BLOOD ORDERABLES Final Resul t [facility] [address] [place] [address], [place] [phone] * Falls Risk Assessment (10/18/2023) Falls Risk Assessment Abstracted Historical Provider HEALTH MAINTENANCE Final Result * Depression Screening (10/18/2023) Depression Screening Abstracted Historical Provider HEALTH MAINTENANCE Final Result from Last 3 Months or Most Recently Relevant to Health Maintenance Insurance [facility] Member Subscriber Plan / Payer (Ef fective 2024-Present) Name:Lauren Lemos Relation to Subscriber:Self Name:Lauren Lemos Payer ID:[id number] Group ID:[id number] Type:Not on file Address: [place] [address] [address] [phone] Care Teams Photo Mask Pattern Generator Relationship Specialty Start Date End Date Carlos Castañeda PA [address] [place] [address] PCP - General Internal Medicine 04/17/24
--- OUTSIDE RECORDS SUMMARY | 2025-04-03 07:45 | XMS_ITS | Encounter Summary ---
Author Organization [facility] Address [address] [place] [address] Care Team Providers Care Senior Laboratory Technician Name Role Phone Minh Ferrell MD Primary Care Provider Un available Haja Donahue MD Primary Care Provider + [phone] Haja Donahue MD Primary Care Provider + [phone] Haja Donahue MD Unavailable [phone] Brent Ellis MD Unavailable [phone] Carlos Castañeda PA-C Primary Care Provider +[phone] Nicky Miller Unavailable Unavailable Mark Acuña MD Unavailable [phone] Nanette Wyatt PA-C Unavailable Sunita Sanchez NP Unavailable +[phone] Encounter Details Date Type Department Care Team Description 08/02/2017 Orders Only Adult Medicine [address] [id number] Elver Mustafa PA-C [address] [place] [address] [id number] Social History Tobacco Use Types Packs/Day Years [...] filedocumented in this encounter Care Teams Senior Laboratory Technician Relationship Specialty Start Date End Date Minh eFrrell MD PCP - General Internal Medicine 08/30/15 01/29/19 Haja Donahue MD [address] [place] [place] [address] PCP - General Internal Medicine 01/30/19 04/03/20 Haja Donahue MD [address] [place] [place] [address] PCP - General 04/04/20 10/29/20 Carlos Castañeda PA-C [address] [place] [address] PCP - General Internal Medicine 10/30/20 Haja Donahue MD [address] [place] [address] Internal Medicine 04/04/20 Brent Ellis MD [address] [place] [address] [place] [address] Drug Abuse Technician Cardiovascular Disease 07/16/20 Nicky Miller PA [address] [place] [address] Specialist Cardiology 02/06/21 11/11/23 Mark Acuña MD [address] [address] Specialist Cardiology 07/31/21 Nanette Wyatt PA-C [address] [address] Specialist Cardiology 07/31/21 Sunita Sanchez NP 2 [facility] [address] [place] [address] Nurse Practitioner Cardiology 10/20/23 documented as of this encounter
--- OUTSIDE RECORDS SUMMARY | 2025-04-03 07:45 | XMS_ITS | Encounter Summary ---
Author Organization [facility] Address [address] [place] [address] Care Team Providers Care Automatic Toe Laster Name Role Phone Haja Donahue MD Primary Care Provider + [phone] Haja Donahue MD Primary Care Provider + [phone] Haja Donahue MD Unavailable +[phone] Brent Ellis MD Unavailable +[phone] Carlos Castañeda PA-C Primary Care Provider +[phone] Nicky Miller Unavailable Unavailable Mark Acuña MD Unavailable +[phone] Nanette Wyatt PA-C Unavailable Sunita Sanchez NP Unavailable [phone] Reason for Visit * Reason Onset Date Comments Follow-up Appt Unavailable 01/01/2020 Encounter Details Date Type Department Care Team Description 01/01/2020 Telephone Adult Medicine [facility] [address] [place] [address] Haja Donahue MD [address] [place] [address] [phone] Follow-up Appt Unavailable Social History Tobacco Use [...] on filedocumented in this encounter Care Teams Automatic Toe Laster Relationship Specialty Start Date End Date Haja Donahue MD [address] [place] [address] PCP - General Internal Medicine 01/30/19 04/03/20 Haja Donahue MD [address] [place] [address] PCP - General 04/04/20 10/29/20 Carlos Castañeda PA-C [address] [place] [address] PCP - General Internal Medicine 10/30/20 Haja Donahue MD [address] [place] [address] Internal Medicine 04/04/20 Brent Ellis MD [address] [place] [address] [place] [address] Surveillance System Monitor Cardiovascular Disease 07/16/20 Nicky Miller PA [address] [place] [address] Specialist Cardiology 02/06/21 11/11/23 Mark Acuña MD [address] [place] [address] Specialist Cardiology 07/31/21 Nanette Wyatt PA-C [address] [place] [address] Specialist Cardiology 07/31/21 Sunita Sanchez NP [address] [place] [address] Nurse Practitioner Cardiology 10/20/23 documented as of this encounter
--- OUTSIDE RECORDS SUMMARY | 2025-04-03 07:45 | XMS_ITS | Encounter Summary ---
Author Organization [facility] Address [address] [place] [address] Care Team Providers Care Mother Baby Rn Name Role Phone Haja Donahue MD Unavailable [phone] Brent Ellis MD Unavailable [phone] Carlos Castañeda PA-C Primary Care Provider +[phone] Nicky Miller Unavailable Unavailable Mark Acuña MD Unavailable [phone] Nanette Wyatt PA-C Unavailable Sunita Sanchez NP Unavailable [phone] Encounter Details Date Type Department Care Team Description 06/12/2023 [facility] Medical Records [address] [place] [address] Social History Tobacco Use Types Packs/Day Years [...] on filedocumented in this encounter Care Teams Mother Baby Rn Relationship Specialty Start Date End Date Carlos Castañeda PA-C [address] [place] [address] PCP - General Internal Medicine 10/30/20 Haja Donahue MD [address] [place] [address] Internal Medicine 04/04/20 Brent Ellis MD [address] [place] [address] Internet Developer Cardiovascular Disease 07/16/20 Nicky Miller PA [address] [place] [address] Specialist Cardiology 02/06/21 11/11/23 Mark Acuña MD [address] [place] [address] Specialist Cardiology 07/31/21 Nanette Wyatt PA-C [address] [place] [address] Specialist Cardiology 07/31/21 Sunita Sanchez NP [address] [place] [address] Nurse Practitioner Cardiology 10/20/23 documented as of this encounter
--- OUTSIDE RECORDS SUMMARY | 2025-04-03 07:45 | XMS_ITS | Encounter Summary ---
Author Organization [facility] Address [address] [place] [address] Care Team Providers Care Buckle Assembler Name Role Phone Minh Ferrell MD Primary Care Provider Un available Haja Donahue MD Primary Care Provider + [phone] Haja Donahue MD Primary Care Provider + [phone] Haja Donahue MD Unavailable +[phone] Brent Ellis MD Unavailable +[phone] Carlos Castañeda PA-C Primary Care Provider [phone] Nicky Miller Unavailable Unavailable Mark Acuña MD Unavailable +[phone] Nanette Wyatt PA-C Unavailable Sunita Sanchez NP Unavailable [phone] Encounter Details Date Type Department Care Team Description 03/18/2016 [facility] Medical Records [address] [place] [address] Abstract, Provider Social History Tobacco Use Types [...] on filedocumented in this encounter Care Teams Buckle Assembler Relationship Specialty Start Date End Date Minh Ferrell MD PCP - General Internal Medicine 08/30/15 01/29/19 Haja Donahue MD [address] [place] [address] PCP - General Internal Medicine 01/30/19 04/03/20 Haja Donahue MD [address] [place] [address] PCP - General 04/04/20 10/29/20 Carlos Castañeda PA-C [address] [place] [address] PCP - General Internal Medicine 10/30/20 Haja Donahue MD [address] [place] [address] Internal Medicine 04/04/20 Brent Ellis MD [address] [place] [address] Plateman Cardiovascular Disease 07/16/20 Nicky Miller PA [address] [place] [address] Specialist Cardiology 02/06/21 11/11/23 Mark Acuña MD [address] [address] Specialist Cardiology 07/31/21 Nanette Wyatt PA-C [address] [address] Specialist Cardiology 07/31/21 Sunita Sanchez NP [address] [place] [address] Nurse Practitioner Cardiology 10/20/23 documented as of this encounter
--- OUTSIDE RECORDS SUMMARY | 2025-04-03 07:45 | XMS_ITS | Encounter Summary ---
Author Organization [facility] Address [address] [place] [address] Care Team Providers Care Door Fitter Name Role Phone Haja Donahue MD Unavailable [phone] Brent Ellis MD Unavailable [phone] Carlos Castañeda PA-C Primary Care Provider [phone] Nicky Miller Unavailable Unavailable Mark Acuña MD Unavailable [phone] Nanette Wyatt PA-C Unavailable Sunita Sanchez NP Unavailable [phone] Encounter Details Date Type Department Care Team Description 07/20/[facility] [address] [place] [address] Social History Tobacco Use Types Packs/Day Years [...] Date/Time Associated Diagnosis Comments OUTSIDE EKG Routine 07/20/2023 OUTSIDE PLAIN FILM Routine 07/20/2023 OUTSIDE LAB Routine 07/20/2023 documented in this encounter Results * OUTSIDE PLAIN FILM (07/20/2023) Provider Abstract RADIOLOGY * OUTSIDE LAB (07/20/2023) Provider Abstract LAB * OUTSIDE EKG (07/20/2023) Provider Abstract CARDIOLOGY documented in this encounter Visit Diagnoses Not on filedocumented in this encounter Care Teams Door Fitter Relationship Specialty Start Date End Date Carlos Castañeda PA-C [address] [place] [address] PCP - General Internal Medicine 10/30/20 Haja Donahue MD [address] [place] [address] Internal Medicine 04/04/20 Brent Ellis MD [address] [place] [address] Services Rep Cardiovascular Disease 07/16/20 Nicky Miller PA [address] [place] [address] Specialist Cardiology 02/06/21 11/11/23 Mark Acuña MD [address] [address] Specialist Cardiology 07/31/21 Nanette Wyatt PA-C [address] [address] Specialist Cardiology 07/31/21 Sunita Sanchez NP [address] [place] [address] Nurse Practitioner Cardiology 10/20/23 documented as of this encounter
--- OUTSIDE RECORDS SUMMARY | 2025-04-03 07:45 | XMS_ITS | Encounter Summary ---
Author Organization [facility] Address [address] [place] [address] Care Team Providers Care Chief Hospital Administrator Name Role Phone Minh Ferrell MD Primary Care Provider Un available Haja Donahue MD Primary Care Provider + [phone] Haja Donahue MD Primary Care Provider + [phone] Haja Donahue MD Unavailable [phone] Brent Ellis MD Unavailable +[phone] Carlos Castañeda PA-C Primary Care Provider [phone] Nicky Miller Unavailable Unavailable Mark Acuña MD Unavailable [phone] Nanette Wyatt PA-C Unavailable Sunita Sanchez NP Unavailable [phone] Encounter Details Date Type Department Care Team Description 03/27/2016 Release of Information Medical Records [address] [place] [address] Abstract, Provider Social History Tobacco Use Types [...] on filedocumented in this encounter Care Teams Chief Hospital Administrator Relationship Specialty Start Date End Date Minh Ferrell MD PCP - General Internal Medicine 08/30/15 01/29/19 Haja Donahue MD [address] [place] [address] PCP - General Internal Medicine 01/30/19 04/03/20 Haja Donahue MD [address] [place] [address] PCP - General 04/04/20 10/29/20 Carlos Castañeda PA-C [address] [place] [address] PCP - General Internal Medicine 10/30/20 Haja Donahue MD [address] [place] [address] Internal Medicine 04/04/20 Brent Ellis MD [address] [place] [address] Assistant Education Director Cardiovascular Disease 07/16/20 Nicky Miller PA [address] [place] [address] Specialist Cardiology 02/06/21 11/11/23 Mark Acuña MD [address] [address] Specialist Cardiology 07/31/21 Nanette Wyatt PA-C [address] [address] Specialist Cardiology 07/31/21 Sunita Sanchez NP [address] [place] [address] Nurse Practitioner Cardiology 10/20/23 documented as of this encounter
--- OUTSIDE RECORDS SUMMARY | 2025-04-03 07:45 | XMS_ITS | Encounter Summary ---
Author Organization [facility] Address [address] [place] [address] Care Team Providers Care Leather Patcher Name Role Phone Minh Ferrell MD Primary Care Provider Un available Haja Donahue MD Primary Care Provider + [phone] Haja Donahue MD Primary Care Provider + [phone] Haja Donahue MD Unavailable [phone] Brent Ellis MD Unavailable +[phone] Carlos Castañeda PA-C Primary Care Provider [phone] Nicky Miller Unavailable Unavailable Mark Acuña MD Unavailable +[phone] Nanette Wyatt PA-C Unavailable Sunita Sanchez NP Unavailable [phone] Encounter Details Date Type Department Care Team Description 11/08/2017 [facility] Controlled Substance Contract Medical Records [address] [place] [address] Abstract, Provider Social History Tobacco Use Types [...] on filedocumented in this encounter Care Teams Leather Patcher Relationship Specialty Start Date End Date Minh Ferrell MD PCP - General Internal Medicine 08/30/15 01/29/19 Haja Donahue MD [address] [place] [address] PCP - General Internal Medicine 01/30/19 04/03/20 Haja Donahue MD [address] [place] [address] PCP - General 04/04/20 10/29/20 Carlos Castañeda PA-C [address] [place] [address] PCP - General Internal Medicine 10/30/20 Haja Donahue MD [address] [place] [address] Internal Medicine 04/04/20 Brent Ellis MD [address] [place] [address] Mechanical Engineering Technologist Cardiovascular Disease 07/16/20 Nicky Miller PA [address] [place] [address] Specialist Cardiology 02/06/21 11/11/23 Mark Acuña MD [address] [address] Specialist Cardiology 07/31/21 Nanette Wyatt PA-C [address] [address] Specialist Cardiology 07/31/21 Sunita Sanchez NP [address] [place] [address] Nurse Practitioner Cardiology 10/20/23 documented as of this encounter
--- OUTSIDE RECORDS SUMMARY | 2025-04-03 07:45 | XMS_ITS | Encounter Summary ---
Author Organization [facility] Address [address] [place] [address] Care Team Providers Care Boat Diesel Motor Mechanic Name Role Phone Haja Donahue MD Primary Care Provider [phone] Haja Donahue MD Unavailable [phone] Brent Ellis MD Unavailable [phone] Carlos Castañeda PA-C Primary Care Provider Nicky Miller Unavailable Unavailable Mark Acuña MD Unavailable [phone] Nanette Wyatt PA-C Unavailable Sunita Sanchez NP Unavailable [phone] Reason for Referral * (Routine) - Authorized/Booked Specialty Diagnoses / Procedures Referred By Contac t Referred To Contact Cardiology Diagnoses Syncope, unspecified syncope type Procedures REFERRAL TO CARDIOLOGY Haja Donahue MD [address] [place] [address] External Cardiology Referral ID Status Reason Start Date Expiration Date V isits Requested Visits Authorized SEE NOTE Authorized/B ooked 04/30/2020 08/03/2020 1 1 Encounter Details Date Type Department Care Team Description 04/30/2020 Orders Only Cardio [facility] [address] [place] [address] Haja Donahue MD [address] [place] [address] Syncope, unspecified syncope type (Primary Dx) Social [...] Primary documented in this encounter Care Teams Boat Diesel Motor Mechanic Relationship Specialty Start Date End Date Haja Donahue MD [address] [place] [address] PCP - General 04/04/20 10/29/20 Carlos Castañeda PA-C [address] [place] [address] PCP - General Internal Medicine 10/30/20 Haja Donahue MD [address] [place] [address] Internal Medicine 04/04/20 Brent Ellis MD [address] [place] [address] [place] [address] Hospital Pharmacist Cardiovascular Disease 07/16/20 Nicky Miller PA [address] [place] [address] Specialist Cardiology 02/06/21 11/11/23 Mark Acuña MD [facility] [address] [place] [address] Specialist Cardiology 07/31/21 Nanette Wyatt PA-C [address] [place] [address] Specialist Cardiology 07/31/21 Sunita Sanchez NP [address] [place] [address] [address] [place] [address] Nurse Practitioner Cardiology 10/20/23 documented as of this encounter
--- OUTSIDE RECORDS SUMMARY | 2025-04-03 07:45 | XMS_ITS | Encounter Summary ---
Author Organization [facility] Address [address] [place] [address] Care Team Providers Care Bottle And Glass Inspector Name Role Phone Minh Ferrell MD Primary Care Provider Un available Haja Donahue MD Primary Care Provider + [phone] Haja Donahue MD Primary Care Provider + [phone] Haja Donahue MD Unavailable [phone] Brent Ellis MD Unavailable +[phone] Carlos Castañeda PA-C Primary Care Provider [phone] Nicky Miller Unavailable Unavailable Mark Acuña MD Unavailable +[phone] Nanette Wyatt PA-C Unavailable Sunita Sanchez NP Unavailable [phone] Encounter Details Date Type Department Care Team Description 09/13/2017 Book Store Associate Report Medical Records [address] [place] [address] Juarez Mckeon Social History Tobacco Use Types [...] on filedocumented in this encounter Care Teams Bottle And Glass Inspector Relationship Specialty Start Date End Date Minh Ferrell MD PCP - General Internal Medicine 08/30/15 01/29/19 Haja Donahue MD [address] [place] [address] PCP - General Internal Medicine 01/30/19 04/03/20 Haja Donahue MD [address] [place] [address] PCP - General 04/04/20 10/29/20 Carlos Castañeda PA-C [address] [place] [address] PCP - General Internal Medicine 10/30/20 Haja Donahue MD [address] [place] [address] Internal Medicine 04/04/20 Brent Ellis MD [address] [place] [address] Lumber Chain Offbearer Cardiovascular Disease 07/16/20 Nicky Miller PA [address] [place] [address] Specialist Cardiology 02/06/21 11/11/23 Mark Acuña MD [address] [address] Specialist Cardiology 07/31/21 Nanette Wyatt PA-C [address] [address] Specialist Cardiology 07/31/21 Sunita Sanchez NP [address] [place] [address] Nurse Practitioner Cardiology 10/20/23 documented as of this encounter
--- OUTSIDE RECORDS SUMMARY | 2025-04-03 07:45 | XMS_ITS | Encounter Summary ---
Author Organization [facility] Address [address] [place] [address] Care Team Providers Care Warehouse Foreman Name Role Phone Minh Ferrell MD Primary Care Provider Un available Haja Donahue MD Primary Care Provider + [phone] Haja Donahue MD Primary Care Provider + [phone] Haja Donahue MD Unavailable Brent Ellis MD Unavailable +[phone] Carlos Castañeda PA-C Primary Care Provider [phone] Nicky Miller Unavailable Unavailable Mark Acuña MD Unavailable Nanette Wyatt PA-C Unavailable Sunita Sanchez NP Unavailable [phone] Reason for Referral * EXTERNAL (Routine) - Authorized/Booked Specialty Diagnoses / Procedures Referred By Feng t Referred To Contact PAIN MANAGEMENT / Pain Management Procedures REFERRAL TO PAIN MANAGEMENT Minh Ferrell MD [address] [place] [address] Willi Faulkner [address] [place] [address] [place] [address] Referral ID Status Reason Start Date Expiration Date V isits Requested Visits Authorized SEE NOTE Authorized/B ooked 2016 08/09/2016 1 1 Reason for Visit * Reason Onset Date Nathalia saab 04/21/2016 pain management Encounter Details Date Type Department Care Team Description 04/21/2016 Telephone Adult Medicine [facility] [address] [place] [address] Minh Ferrell MD roseola (pain management) Social History Tobacco Use Types Packs/Day Years [...] encounter Miscellaneous Notes * Telephone Encounter - Ling Perez - 04/21/2016 3:19 PM EST I will pend a new order to Minh Ferrell Please review this patients new referral request. The referral has been pended. Please complete thefollowing: If approved> sign order If denied>please give instructions and route to your practice nursing pool. Practice nurse should inform referrals and the patient if denied. * Telephone Encounter - Gloria Lock - 04/21/2016 8:50 AM EST Patient was referred to pain management [place] ( Encounter 03/17) Patient has no transportation, she needs a facility Closer Dx Left shoulder pain No injury documented in this encounter Plan of Treatment Not on file documented as of this encounter Visit Diagnoses Not on filedocumented in this encounter Care Teams Warehouse Foreman Relationship Specialty Start Date End Date Minh Ferrell MD PCP - General Internal Medicine 08/30/15 01/29/19 Haja Donahue MD [address] [place] [address] PCP - General Internal Medicine 01/30/19 04/03/20 Haja Donahue MD [address] [place] [address] PCP - General 04/04/20 10/29/20 Carlos Castañeda PA-C [address] [place] [address] PCP - General Internal Medicine 10/30/20 Haja Donahue MD [address] [place] [address] Internal Medicine 04/04/20 Brent Ellis MD [address] [place] [address] Trash Collector Cardiovascular Disease 07/16/20 Nicky Miller PA [address] [place] [address] Specialist Cardiology 02/06/21 11/11/23 Mark Acuña MD [address] [address] Specialist Cardiology 07/31/21 Nanette Wyatt PA-C [address] [facility] [address] [place] [address] Specialist Cardiology 07/31/21 Sunita Sanchez NP [address] [place] [address] Nurse Practitioner Cardiology 10/20/23 documented as of this encounter
--- OUTSIDE RECORDS SUMMARY | 2025-04-03 07:45 | XMS_ITS | Encounter Summary ---
Author Organization [facility] Address [address] [place] [address] Care Team Providers Care Cement And Concrete Plant Worker Name Role Phone Haja Donahue MD Unavailable [phone] Brent Ellis MD Unavailable [phone] Carlos Castañeda PA-C Primary Care Provider [phone] Nicky Miller Unavailable Unavailable Mark Acuña MD Unavailable [phone] Nanette Wyatt PA-C Unavailable Sunita Sanchez NP Unavailable [phone] Encounter Details Date Type Department Care Team Description 11/01/2021 [facility] Medical Records [address] [place] [phone] [place] [address] Social History Tobacco Use Types Packs/Day Years [...] on filedocumented in this encounter Care Teams Cement And Concrete Plant Worker Relationship Specialty Start Date End Date Carlos Castañeda PA-C [address] [place] [address] PCP - General Internal Medicine 10/30/20 Haja Donahue MD [address] [place] [address] Internal Medicine 04/04/20 Brent Ellis MD [address] [place] [address] Project Reservoir Engineer Cardiovascular Disease 07/16/20 Nicky Miller PA [address] [place] [address] Specialist Cardiology 02/06/21 11/11/23 aMrk Acuña MD [address] [place] [address] Specialist Cardiology 07/31/21 Nanette Wyatt PA-C [address] [place] [address] Specialist Cardiology 07/31/21 Sunita Sanchez NP [address] [place] [address] Nurse Practitioner Cardiology 10/20/23 documented as of this encounter
--- OUTSIDE RECORDS SUMMARY | 2025-04-03 07:45 | XMS_ITS | Encounter Summary ---
Author Organization [facility] Address [address] [place] [address] Care Team Providers Care Ferryboat Operator Helper Name Role Phone Haja Donahue MD Unavailable [phone] Brent Ellis MD Unavailable [phone] Carlos Castañeda PA-C Primary Care Provider [phone] Nicky Miller Unavailable Unavailable Mark Acuña MD Unavailable [phone] Nanette Wyatt PA-C Unavailable Sunita Sanchez NP Unavailable [phone] Reason for Visit * Reason Onset Date Comments APPOINTMENT 10/21/2023 cta Encounter Details Date Type Department Care Team Description 10/21/2023 Telephone Cardio PVC POC 154 [address] [facility] [address] [place], [place] [id number] Sunita Sanchez, LASHANDA [address] [address] APPOINTMENT (cta) Social History Tobacco Use Types Packs/Day Years [...] encounter Miscellaneous Notes * Telephone Encounter - Shira Ingram - 01/25/2024 9:44 AM EDT Patient asked if I can fax order to [facility] , I faxed labs orders to [facility] at [phone] * Telephone Encounter - Shira Ingram - 01/25/2024 9:40 AM EDT Patient Is going today to get labs done. * Telephone Encounter - Laura Zambrano - 01/25/2024 9:23 AM EDT Carmen calling from [facility], she is looking for the patients update labs. Please fax labs to fax [phone] * Telephone Encounter - Sveta Forte - 01/20/2024 11:56 AM EDT Sarah from [facility] CT department calling stating patient is scheduled for 01/27/24, they need order H&P and labs faxed to them prior to fax # [phone] any questions [phone] * Telephone Encounter - Shira Ingram - 11/04/2023 10:42 AM EDT I called patient, gave patient appointment details and Instructions. Mailed CTA appointment instruction and lab (if needed). * Telephone Encounter - Shira Ingram - 10/29/2023 9:06 AM EDT Faxed OV note, CTA order, demos, Auth information (labs if needed) * Telephone Encounter - Sunita Rincon - 10/27/2023 11:27 AM EDT Good [facility], CTA heart approved Auth # [id number] 10/25/23 - 02/24/24 [facility] Lilian Phelps * Telephone Encounter - Sunita Rincon - 10/25/2023 11:55 AM EDT Good chaparro, [facility] auth request for CTA Heart was submitted 10/25/23. Lilian Phelps * Telephone Encounter - Shira Ingram - 10/21/2023 10:02 AM EDT Please Obtain PA for CTA HRT [place]NRY [id number] Thank You documented in this encounter Plan of Treatment Scheduled Orders Name Type Priority Associated Diagnoses Orde r Schedule CHG BASIC METABOLIC PANEL CALCIUM TOTAL Lab Routine Primary hypertension Expected: 01/25/2024, Expires: 01/24/2025 CHG BLOOD COUNT COMPLETE AUTO&AUTO DIFRNTL WBC Lab Routine Primary hypertension Expected: 01/25/2024, Expires: 01/24/2025 documented as of this encounter Visit Diagnoses Diagnosis Primary hypertension- Primary Unspecified essential hypertension documented in this encounter Care Teams Ferryboat Operator Helper Relationship Specialty Start Date End Date Carlos Castañeda PA-Vikash [address] [place] [address] PCP - General Internal Medicine 10/30/20 Haja Donahue MD [address] [place] [address] Internal Medicine 04/04/20 Brent Ellis MD [address] [place] [address] [place] [address] Inpatient Services Director Cardiovascular Disease 07/16/20 Nicky Miller PA [address] [place] [address] Specialist Cardiology 02/06/21 11/11/23 Mark Acuña MD [address] [place] [address] Specialist Cardiology 07/31/21 Nanette Wyatt PA-C [address] [place] [address] Specialist Cardiology 07/31/21 Sunita Sanchez NP [address] [place] [address] Nurse Practitioner Cardiology 10/20/23 documented as of this encounter
--- OUTSIDE RECORDS SUMMARY | 2025-04-03 07:45 | XMS_ITS | Encounter Summary ---
Author Organization [facility] Address [address] [place] [address] Care Team Providers Care Hand Inserter Operator Name Role Phone Haja Donahue MD Unavailable [phone] Brent Ellis MD Unavailable [phone] Carlos Castañeda PA-C Primary Care Provider [phone] Nicky Miller Unavailable Unavailable Mark Acuña MD Unavailable [phone] Nanette Wyatt PA-C Unavailable Sunita Sanchez NP Unavailable [phone] Encounter Details Date Type Department Care Team Description 07/20/2022 [facility] Medical Records [address] [place] [address] Abstract, Provider Social History Tobacco Use Types [...] on filedocumented in this encounter Care Teams Hand Inserter Operator Relationship Specialty Start Date End Date Carlos Castañeda PA-C [address] [place] [address] PCP - General Internal Medicine 10/30/20 Haja Donahue MD [address] [place] [address] Internal Medicine 04/04/20 Brent Ellis MD [address] [place] [address] Disposition Clerk Cardiovascular Disease 07/16/20 Nicky Miller PA [address] [place] [address] Specialist Cardiology 02/06/21 11/11/23 Mark Acuña MD [address] [place] [address] Specialist Cardiology 07/31/21 Nanette Wyatt PA-C [address] [place] [address] Specialist Cardiology 07/31/21 Sunita Sanchez NP [address] [place] [address] Nurse Practitioner Cardiology 10/20/23 documented as of this encounter
--- OUTSIDE RECORDS SUMMARY | 2025-04-03 07:45 | XMS_ITS | Encounter Summary ---
Author Organization [facility] Address [address] [place] [address] Care Team Providers Care Local Superintendent Name Role Phone Haja Donahue MD Unavailable [phone] Brent Ellis MD Unavailable [phone] Carlos Castañeda PA-C Primary Care Provider [phone] Nicky Miller Unavailable Unavailable Mark Acuña MD Unavailable [phone] Nanette Wyatt PA-C Unavailable Sunita Sanchez NP Unavailable [phone] Encounter Details Date Type Department Care Team Description 05/02/2023 [facility] Medical Records [address] [place] [address] Janette Little PA-C Social History Tobacco Use [...] on filedocumented in this encounter Care Teams Local Superintendent Relationship Specialty Start Date End Date Carlos Castañeda PA-C [address] [place] [address] PCP - General Internal Medicine 10/30/20 Haja Donahue MD [address] [place] [address] Internal Medicine 04/04/20 Brent Ellis MD [address] [place] [address] Liquid Hydrogen Plant Operator Cardiovascular Disease 07/16/20 Nicky Miller PA [address] [place] [address] Specialist Cardiology 02/06/21 11/11/23 Mark Acuña MD [address] [place] [address] Specialist Cardiology 07/31/21 Nanette Wyatt PA-C [address] [place] [address] Specialist Cardiology 07/31/21 Sunita Sanchez NP [address] [place] [address] Nurse Practitioner Cardiology 10/20/23 documented as of this encounter
--- OUTSIDE RECORDS SUMMARY | 2025-04-03 07:45 | XMS_ITS | Encounter Summary ---
Author Organization [facility] Address [address] [place] [address] Care Team Providers Care Mapping Engineer Name Role Phone Haja Donahue MD Primary Care Provider + [phone] Haja Donahue MD Unavailable [phone] Brent Ellis MD Unavailable [phone] Carlos Castañeda PA-C Primary Care Provider [phone] Nicky Miller Unavailable Unavailable Mark Acuña MD Unavailable [phone] Nanette Wyatt PA-C Unavailable Sunita Sanchez NP Unavailable [phone] Encounter Details Date Type Department Care Team Description 06/20/2020 [facility] Medical Records [address] [place] [address] Felipe Posadas PA-C Social History Tobacco Use [...] on filedocumented in this encounter Care Teams Mapping Engineer Relationship Specialty Start Date End Date Haja Donahue MD [address] [place] [address] PCP - General 04/04/20 10/29/20 Carlos Castañeda PA-C [address] [place] [address] PCP - General Internal Medicine 10/30/20 Haja Donahue MD [address] [place] [address] Internal Medicine 04/04/20 Brent Ellis MD [address] [place] [address] Log Cutter Cardiovascular Disease 07/16/20 Nicky Miller PA [address] [place] [address] Specialist Cardiology 02/06/21 11/11/23 Mark Acuña MD [address] [address] Specialist Cardiology 07/31/21 Nanetet Wyatt PA-C [address] [facility] [address] [place] [address] Specialist Cardiology 07/31/21 Sunita Sanchez NP [address] [place] [address] Nurse Practitioner Cardiology 10/20/23 documented as of this encounter
--- OUTSIDE RECORDS SUMMARY | 2025-04-03 07:45 | XMS_ITS | Encounter Summary ---
Author Organization [facility] Address [address] [place] [address] Care Team Providers Care Internal Medicine Specialist Name Role Phone Haja Donahue MD Primary Care Provider + [phone] Haja Donahue MD Primary Care Provider + [phone] Haja Donahue MD Unavailable [phone] Brent Ellis MD Unavailable [phone] Carlos Castañeda PA-C Primary Care Provider [phone] Nicky Miller Unavailable Unavailable Mark Acuña MD Unavailable [phone] Nanette Wyatt PA-C Unavailable Sunita Sanchez NP Unavailable [phone] Encounter Details Date Type Department Care Team Description 02/28/2020 Hospital Medical Records [address] [place] [address] [facility] Social History Tobacco Use Types Packs/Day Years [...] filedocumented in this encounter Care Teams Internal Medicine Specialist Relationship Specialty Start Date End Date Haja Donahue MD [address] [place] [address] PCP - General Internal Medicine 01/30/19 04/03/20 Haja Donahue MD [address] [place] [address] PCP - General 04/04/20 10/29/20 Carlos Castañeda PA-C [address] [place] [address] PCP - General Internal Medicine 10/30/20 Haja Donahue MD [address] [place] [address] Internal Medicine 04/04/20 Brent Ellis MD [address] [place] [address] Rolled Oats Mill Operator Cardiovascular Disease 07/16/20 Nicky Miller PA [address] [place] [address] Specialist Cardiology 02/06/21 11/11/23 Mark Acuña MD [address] [address] Specialist Cardiology 07/31/21 Nanette Wyatt PA-C [address] [address] Specialist Cardiology 07/31/21 Sunita Sanchez NP [address] [place] [address] Nurse Practitioner Cardiology 10/20/23 documented as of this encounter
--- OUTSIDE RECORDS SUMMARY | 2025-04-03 07:45 | XMS_ITS | Encounter Summary ---
Author Organization [facility] Address [address] [place] [address] Care Team Providers Care Green End Man Name Role Phone Haja Donahue MD Unavailable [phone] Brent Ellis MD Unavailable [phone] Carlos Castañeda PA-C Primary Care Provider [phone] Nicky Miller Unavailable Unavailable Mark Acuña MD Unavailable [phone] Nanette Wyatt PA-C Unavailable Sunita Sanchez NP Unavailable [phone] Encounter Details Date Type Department Care Team Description 06/15/2022 [facility] Medical Records [address] [place] [address] [place] [address] Social History Tobacco Use Types Packs/Day Years [...] on filedocumented in this encounter Care Teams Green End Man Relationship Specialty Start Date End Date Carlos Castañeda PA-C [address] [place] [address] PCP - General Internal Medicine 10/30/20 Haja Donahue MD [address] [place] [address] Internal Medicine 04/04/20 Brent Ellis MD [address] [place] [address] [place] Cardiovascular Disease 07/16/20 Nicky Miller PA [address] [place] [address] Specialist Cardiology 02/06/21 11/11/23 Mark Acuña MD [address] [place] [address] Specialist Cardiology 07/31/21 Nanette Wyatt PA-C [address] [place] [address] Specialist Cardiology 07/31/21 Sunita Sanchez NP [address] [place] [address] Nurse Practitioner Cardiology 10/20/23 documented as of this encounter
--- OUTSIDE RECORDS SUMMARY | 2025-04-03 07:46 | XMS_ITS | Encounter Summary ---
Author Organization [facility] Address [address] [place] [address] Care Team Providers Care Social Media Executive Name Role Phone Haja Donahue MD Primary Care Provider + [phone] Haja Donahue MD Primary Care Provider + [phone] Haja Donahue MD Unavailable [phone] Brent Ellis MD Unavailable [phone] Carlos Castañeda PA-C Primary Care Provider [phone] Nicky Miller Unavailable Unavailable Mark Acuña MD Unavailable [phone] Nanette Wyatt PA-C Unavailable Sunita Sanchez NP Unavailable [phone] Encounter Details Date Type Department Care Team Description 08/16/2019 [facility] Medical Records [address] [place] [address] Abstract, Provider Social History Tobacco Use Types [...] on filedocumented in this encounter Care Teams Social Media Executive Relationship Specialty Start Date End Date Haja Donahue MD [address] [place] [address] PCP - General Internal Medicine 01/30/19 04/03/20 Haja Donahue MD [address] [place] [address] PCP - General 04/04/20 10/29/20 Carlos Castañeda PA-C [address] [place] [address] PCP - General Internal Medicine 10/30/20 Haja Donahue MD [address] [place] [address] Internal Medicine 04/04/20 Brent Ellis MD [address] [place] [address] Urology Physician Assistant Cardiovascular Disease 07/16/20 Nicky Miller PA [address] [place] [address] Specialist Cardiology 02/06/21 11/11/23 Mark Acuña MD [address] [address] Specialist Cardiology 07/31/21 Nanette Wyatt PA-C [address] [address] Specialist Cardiology 07/31/21 Sunita Sanchez NP [address] [place] [address] Nurse Practitioner Cardiology 10/20/23 documented as of this encounter
--- OUTSIDE RECORDS SUMMARY | 2025-04-03 07:46 | XMS_ITS | Encounter Summary ---
Author Organization [facility] Address [address] [place] [address] Care Team Providers Care Patient Portal Representative Name Role Phone Haja Donahue MD Unavailable [phone] rBent Ellis MD Unavailable [phone] Carlos Castañeda PA-C Primary Care Provider [phone] Nicky Miller Unavailable Unavailable Mark Acuña MD Unavailable [phone] Nanette Wyatt PA-C Unavailable Sunita Sanchez NP Unavailable [phone] Encounter Details Date Type Department Care Team Description 05/02/2021 [facility] Medical Records [address] [place] [address] Abstract, Provider Social History Tobacco Use Types [...] have Coronavirus / COVID-19? No / Unsure 04/15/2021 12:51 PM EST documented as of this encounter Plan of Treatment Not on file documented as of this encounter Visit Diagnoses Not on filedocumented in this encounter Care Teams Patient Portal Representative Relationship Specialty Start Date End Date Carlos Castañeda PA-C [address] [place] [address] PCP - General Internal Medicine 10/30/20 Haja Donahue MD [address] [place] [address] Internal Medicine 04/04/20 Brent Ellis MD [address] [place] [address] Litigation Docket Manager Cardiovascular Disease 07/16/20 Nicky Miller PA [address] [place] [address] Specialist Cardiology 02/06/21 11/11/23 Mark Acuña MD [address] [place] [address] Specialist Cardiology 07/31/21 Nanette Wyatt PA-C [address] [place] [address] Specialist Cardiology 07/31/21 Sunita Sanchez NP [address] [place] [address] Nurse Practitioner Cardiology 10/20/23 documented as of this encounter
[2025-04-03 08:08] LABS: Hematocrit 42.2 % (37.0-47.0); Hemoglobin 13.2 g/dl (12.0-16.0); Mean Corpuscular HGB Conc 31.3 g/dl (31.0-35.0); Mean Corpuscular Hemoglobin 28.9 pg (27.0-33.0); Mean Corpuscular Volume 92.5 fL (80.0-98.0); NRBC Abs Auto 0.000 X10*3/uL (0.0-0.012); NRBC Pct Auto 0.0 /100WBC (0.0-0.2); Platelet Count 237 X10*3/uL (160-400); Red Blood Count 4.56 X10*6/uL (4.20-5.50); White Blood Count 10.6 X10*3/uL (4.8-10.8)
[2025-04-03 08:25] LABS: Alanine Aminotransferase 23 U/L (0-31); Albumin Level 4.1 g/dL (3.5-5.0); Alkaline Phosphatase 161 U/L (39-117); Anion Gap 14 (12-20); Aspartate Amino Transferase 21 U/L (5-31); Blood Urea Nitrogen 25 mg/dL (9-16); Calcium 9.3 mg/dL (8.4-10.2); Carbon Dioxide 22 mmol/L (22-29); Chloride 111 mmol/L (96-108); Estimated Glomerular Filt Rate 37; Potassium 4.5 mmol/L (3.3-5.1); Sodium 142 mmol/L (135-145); Total Protein 7.3 g/dL (6.5-8.0)
[2025-04-03 08:30] LABS: Appearance Urine Clear; Glucose Urine UA Negative (Negative); PH 5.5 (5.0-9.0); Specific Gravity - Urine 1.015 (1.005-1.025); UMIC TRIGGER UA YES
[2025-04-03 08:51] LABS: Total Protein Urine Random 13 mg/dL (<12)
== END 2025-04-03 07:43 | disposition home or self-care (01) ==
LOC: HO.LAB 07:42
PROVIDERS: PCP Physician Assistant Medical; Visit Provider Internal Medicine Hypertension Specialist
DX: I12.9 Hypertensive chronic kidney disease with stage 1 through stage 4 chronic kidney disease, or unspecified chronic kidney disease (principal); N18.9 Chronic kidney disease, unspecified; E21.3 Hyperparathyroidism, unspecified; F10.129 Alcohol abuse with intoxication, unspecified; R11.0 Nausea; T40.2X5A Adverse effect of other opioids, initial encounter
CPT/HCPCS: 36415; 80053; 81001; 82570; 84156; 85027; 99212

== ENCOUNTER 2025-04-03 09:22 | Outpatient (AMB) | payer MEDICARE, SELFPAY ==
--- NOTE | 2025-04-03 09:40 | HO.NEPHOV ---
Vital Signs 04/03/25 09:41 Height 5 ft 4 in Weight 210 lb BMI 36.0 BP 140/72 H Blood Pressure Location Lt brachial Position Sitting Pulse 57 Pulse Source Pulse Oximeter Pulse Oximetry (%) 96 Intake Visit Reasons: FU-Conf Rivet Sorter Required: No Accompanied by: Self / Same As Patient Allergies gluten (GLUTEN) Allergy (Unknown, Verified 01/01/25 09:23) UNKNOWN mushroom Allergy (Unknown, Verified 01/01/25 09:23) UNKNOWN oxycodone Allergy (Unknown, Verified 04/03/25 09:45) Hallucinations Medication List - Last Reconciled 04/03/25 by Manpreet Luke MD albuterol sulfate 90 mcg/actuation 2 puffs inhalation Q4-6H PRN amlodipine 10 mg PO DAILY ascorbic acid (vitamin C) 250 mg PO DAILY aspirin 81 mg PO DAILY atorvastatin 20 mg PO DAILY bupropion HCl XL 150 mg PO DAILY cefuroxime axetil 250 mg PO BID 4 days cholecalciferol (vitamin D3) 10 mcg PO DAILY cyanocobalamin (vitamin B-12) 1,000 mcg PO DAILY cyclobenzaprine 10 mg PO BID PRN dorzolamide-timolol 22.3-6.8 mg/mL 1 drp ophthalmic-Left Q12H levothyroxine 75 mcg PO DAILY@0600 lidocaine 5% 1 patch topical DAILY PRN meclizine 25 mg PO TID PRN metoprolol succinate ER 100 mg PO DAILY multivitamin 1 tab PO DAILY omeprazole 20 mg PO DAILY@0630 ondansetron 4 mg PO Q8-10H PRN ondansetron HCl 4 mg PO Q8H PRN oxybutynin chloride ER 5 mg PO DAILY prazosin 1 - 2 mg PO BEDTIME PRN ropinirole 0.25 mg PO BID spironolactone 50 mg PO DAILY tolterodine ER 4 mg PO DAILY walker As directed zonisamide 100 mg PO BID PRN HPI Comments Details: 69 year old female hx of htn, hld, hypothyroidism and CKD is here for follow-up Spironolactone has been increased to 50 mg QD No specific complaints today. Waiting for shoulder replacement Lost in September-now on welbutrin 04/04/25 - The patient is a 69-year-old female presenting with evaluation of chronic kidney disease. - Chronic Kidney Disease: Kidney function improved to 30-40%. - Hypertension: Controlled with amlodipine, metoprolol, and spironolactone. - Hyperthyroidism: No additional details provided. 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 - Adverse Reaction to Oxycodone: Severe reaction post-surgery. - Nausea: Managed with medication. - Preventative Care: Flu and COVID vaccinations received. [facility] Medical History (Updated 12/10/24 @ 00:01 by Chela Baron) Osteopenia Glaucoma Osteoarthritis CKD (chronic kidney disease) stage 3, GFR 30-59 ml/min Vitamin D deficiency Vitamin B12 deficiency Shoulder pain, left Back pain Anxiety LOC (loss of consciousness) Bilateral leg edema Chest pain Dyspnea RLS (restless legs syndrome) Depression Presence of implantable pulmonary artery pressure and heart rate monitoring system Right knee injury Right shoulder injury Femur fracture, right Femur fracture, left delivery delivered Migraine Restless Kidney disease Heart murmur Overactive bladder Overactive adult syndrome Thyroid disease Hyperlipidemia Hypertension Surgical History (Updated 04/03/25 @ 09:44 by MELISSA Gerard) History of left shoulder replacement (~01/2025) History of cataract surgery (~05/2024) History of surgery Social History Household Members: Spouse Housing: Apartment Do you presently have visiting nurse or other home services: No Alcohol intake: current Alcohol intake frequency: 0-2 drinks per day Alcohol type: beer and hard liquor Patient Tobacco Use Status: Never used Tobacco Second Hand Smoke Exposure: No Substance Use Type: Marijuana Advance Directives Date on File: 09/10/20 service: No Physical Exam Vital Signs: Last Vital Signs Pulse 57 04/03/25 09:41 BP 140/72 H 04/03/25 09:41 Pulse Ox 96 04/03/25 09:41 BMI result Body Mass Index 36.0 Comfortable Neck supple no JVD. Lungs entry equal no rales. Heart S1-S2 heard no gallop or rub. Abdomen soft nontender. Neuro alert awake oriented. No asterixis. Extremities no edema. Results Reviewed Nephrology Results: Hgb, (12.0-16.0) 13.2 g/dl Today WBC, (4.8-10.8) 10.6 X10*3/uL Today Plt Count, (160-400) 237 X10*3/uL Today Sodium, (135-145) 142 mmol/L Today Potassium, (3.3-5.1) 4.5 mmol/L Today Chloride, (96-108) 111 mmol/L H Today Carbon Dioxide, (22-29) 22 mmol/L Today BUN, (9-16) 25 mg/dL H Today Creatinine, (0.5-1.4) 1.41 mg/dL H Today Calcium, (8.4-10.2) 9.3 mg/dL Today Urine Protein, (Neg-Trace) Negative mg/dL Today Urine Creatinine 95.47 mg/dL Today Assessment & Plan Assessment & Plan (1) CKD (chronic kidney disease): Code(s): N18.9 - Chronic kidney disease, unspecified Category: Medical Plan CKD 3 in a setting of HTN Cr close to baseline Avoid nephrotoxins/NSAIDS Increase PO fluids Avoid ALcohol Blood pressure is better controlled. Encouraged to stay on low-sodium diet. Continue with same dose of spironolactone. Will continue monitor renal function closely. Orders: Orders Electrolytes 6 Months N18.9 - Chronic kidney disease, unspecified Blood Urea Nitrogen 6 Months N18.9 - Chronic kidney disease, unspecified Creatinine 6 Months N18.9 - Chronic kidney disease, unspecified Coding Level of Care Code Est Pt Level 4 (59214) Diagnoses CKD (chronic kidney disease) N18.9
[2025-04-03 09:41] VITALS: BP 140/72; PULSE 57; O2SAT 96; BMI 36.0
--- OUTSIDE RECORDS SUMMARY | 2025-04-03 10:36 | XMS_ITS | Clinical Summary ---
Author Organization [facility] Address [address] [place] [address] [place] [address] Phone Care Team Providers Care Plaster Maker Name Role Phone Haja Donahue MD Primary Care Provider [phone] Allergies Active Allergy Reactions Criticality Noted Date [...] her 2 recent episodes occur in the drug safety scientist right after getting out of bed, we have to consider the possibility of orthostatic hypotension. I would instruct the patient to monitor her blood pressure at home in the drug safety scientist to determine if she is having any [...] Chronic back pain 05/04/2020 Chest pain 05/04/2020 Pain of shoulder region 05/04/2020 Overactive bladder 05/04/2020 Vitamin D deficiency [...] age to complete this topic Insurance [address] [place] [address] Medicaid [place] [facility] Member Subscriber Plan / Payer (Ef fective 2022-Present) Name:Lauren Lemos Relation to Subscriber:Self Name:Lauren Lemos Payer ID:[id number] (NAIC) Group ID:Not on file Type:Not on file Address: [place] [id number] Medicaid [place] Member Subscriber Plan / Payer (Ef fective 2020-Present) Name:Lauren Lemos Relation to Subscriber:Self Name:Lauren Lemos Payer ID:Not on file Group ID:Not on file Type:Not on file Address: [address] [facility] Member Subscriber Plan / Payer (Ef fective 2022-Present) Name:Lauren Lemos Relation to Subscriber:Self Name:Lauren Lemos Payer ID:[id number] (NAIC) Group ID:Not on file Type:Not on file Address: [place] [id number] Care Teams Plaster Maker Relationship Specialty Start Date End Date Haja Donahue MD [address] [place] [address] PCP - General Internal Medicine 07/15/20
== END 2025-04-03 09:55 | disposition home or self-care (01) ==
LOC: HO.HKA 09:22
PROVIDERS: PCP Physician Assistant Medical; Visit Provider Internal Medicine Hypertension Specialist
DX: N18.9 Chronic kidney disease, unspecified (principal)
CPT/HCPCS: 99214